=== PATIENT | female | born 1965 | race Caucasian/White ===

== ENCOUNTER 2016-05-02 10:06 | Inpatient (IN) | payer MEDICAID, SELFPAY ==
[2016-05-02] MEDS ORDERED: NS + KCl 20mEq/L 1,000 ML IV SCH (12:00)
[2016-05-02 12:57] LABS: ACETAMINOPHEN < 10 ug/mL (10-30)
[2016-05-02] MEDS ORDERED: Ondansetron 4 MG Tab.DIS PO PRN (13:17)
[2016-05-02] MEDS ORDERED: Pregabalin 50 MG Cap PO SCH (13:30)
[2016-05-02] MEDS ORDERED: Potassium Chloride 10 MEQ Tab.ER PO SCH (13:30)
[2016-05-02] MEDS: Pantoprazole 40 MG Vial IVPUSH SCH (13:52)
[2016-05-02] MEDS ORDERED: Potassium Chloride 20 MEQ Tab.ER PO SCH (15:30)
[2016-05-02] MEDS ORDERED: Potassium Chloride 20 MEQ Packet PO ONE (16:00)
[2016-05-02] MEDS: Enoxaparin 40 MG/0.4 ML Syringe SUBCUT SCH (17:42)
[2016-05-02] MEDS: NS + KCl 20mEq/L 1,000 ML IV SCH (19:16)
--- NOTE | 2016-05-02 19:17 | PCM.HP ---
H&P History of Present Illness - General Date of Service: 05/02/16 Source of Information: Patient, Family History Limitations: Reports: No limitations - History of Present Illness Initial Comments - Free Text/Narative: This is a 51-year-old female patient with a history of chronic alcoholism. She has not been eating for 5 days. She started vomiting and then quit eating. She 's been drinking some fluids and vomiting. She can only drinking water. She states she's had some abdominal pain. She denies constipation or diarrhea.. She denies dysuria, pyuria, hematuria, fevers, chills. According to her she only drinks 5 beers a day. She's not had any alcohol according to him for 5 days. She denies any withdrawals. Lower Back Pain Score (Numeric/FACES): 6 rib Pain Score (Numeric/FACES): 5 - Related Data Allergies/Adverse Reactions: Allergies Allergy/AdvReac Type Severity Reaction Status Date / Time No Known Allergies Allergy Verified 06/30/13 16:32 Home Medications: Home Meds ALPRAZolam [Xanax] 0.5 - 1 mg PO BID PRN 06/30/13 [History] Potassium Chloride [Klor-Con 10] 20 meq PO DAILY 06/30/13 [History] Ranitidine [Zantac] 150 mg PO BID 06/30/13 [History] Past Medical History HEENT History: Reports: Cataract Cardiovascular History: Reports: Other (see below) Other Cardiovascular History: Pt reports palpitations Gastrointestinal History: Reports: None Genitourinary History: Reports: None [employer] History: Reports: Musculoskeletal History: Reports: None Neurological History: Reports: None Psychiatric History: Reports: Addiction, Anxiety Endocrine/Metabolic History: Reports: None Hematologic History: Reports: None Immunologic History: Reports: None Oncologic (Cancer) History: Reports: None - Infectious Disease History Infectious Disease History: Reports: Chicken pox - Past Surgical History HEENT Surgical History: Reports: Cataract surgery, Tonsillectomy GI Surgical History: Reports: Appendectomy Musculoskeletal Surgical History: Reports: None Dermatological Surgical History: Reports: Skin graft Social & Family History - Family History Family Medical History: Noncontributory - Tobacco Use Smoking Status *Q: Never Smoker - Caffeine Use Caffeine Use: Reports: None Caffeine Use Comment: Does not use caffeine regularly - Alcohol Use Days Per Week of Alcohol Use: 3 Number of Drinks Per Day: 6 Total Drinks Per Week: 18 Date of Last Drink: 04/27/16 - Recreational Drug Use Recreational Drug Use: No H&P Review of Systems - Review of Systems: Review Of Systems: See Below General: Reports: no symptoms HEENT: Reports: no symptoms Pulmonary: Reports: no symptoms Cardiovascular: Reports: no symptoms Gastrointestinal: Reports: Abdominal pain, Anorexia, Decreased appetite, Nausea , Vomiting. Denies: Black stool, Bloody stool, Constipation, Diarrhea, Difficulty swallowing, Melena Genitourinary: Reports: no symptoms Musculoskeletal: Reports: no symptoms Skin: Reports: no symptoms Psychiatric: Reports: no symptoms Neurological: Reports: no symptoms Hematologic/Lymphatic: Reports: no symptoms Exam - Exam Exam: See Below - Vital Signs Vital Signs: Last Vital Signs Temp 97.7 F 05/02/16 15:44 Pulse 104 H 05/02/16 15:44 Resp 18 05/02/16 15:44 BP 111/78 05/02/16 15:44 Pulse Ox 98 05/02/16 15:44 Weight: 135 lb 3.2 oz - Exam General: alert, oriented, cooperative, other (But slow) HEENT: PERRLA, Conjunctiva clear, EACs clear, EOMI, Hearing intact, Mucosa moist & pink, Posterior pharynx clear, TMs clear Neck: supple, trachea midline. No: carotid bruit Lungs: Clear to auscultation, Normal respiratory effort. No: Crackles, Rales, Rhonchi, Rub Cardiovascular: regular rate, regular rhythm, normal S1, normal S2. No: systolic murmur, diastolic murmur Abdomen: normal bowel sounds, soft, organomegaly, guarding. No: rigidity, rebound, tenderness Back Exam: normal inspection, full range of motion Extremities: normal inspection. No: edema Neurological: normal tone, other (Slow speech) Neuro Extensive - Mental Status: alert, oriented x3. No: normal mood/affect - Patient Data Lab Results last 24 hrs: Laboratory Results - last 24 hr 05/02/16 05/02/16 05/02/16 Range/Units 14:31 16:33 16:33 PT 18.0 H (8.7-11.1) INR 1.76 H (0.89-1.13) APTT 25.4 (24.4-33.2) SECONDS Sodium 122 L (135-145) mmol/L Potassium 3.0 L (3.5-5.3) mmol/L Chloride 79 L* (100-110) mmol/L Carbon Dioxide 20 L (23-29) mmol/L BUN 37 H D (5-20) mg/dL Creatinine 0.8 (0.6-1.3) mg/dL Est Cr Clr Drug Dosing 81.45 mL/min Estimated GFR (MDRD) > 60 (>60) BUN/Creatinine Ratio 46.3 H (9-20) Glucose 126 H (80-116) mg/dL POC Glucose 140 H (80-116) mg/dL Calcium 8.7 (8.6-10.2) mg/dL Urine Opiates Screen (NEGATIVE) Ur Oxycodone Screen (NEGATIVE) Ur Propoxyphene Screen (NEGATIVE) Ur Barbituates Screen (NEGATIVE) Ur Tricyclics Screen (NEGATIVE) Ur Phencyclidine Scrn (NEGATIVE) Ur Amphetamine Screen (NEGATIVE) Urine MDMA Screen (NEGATIVE) U Benzodiazepines Scrn (NEGATIVE) U Cocaine Metab Screen (NEGATIVE) U Marijuana (THC) Screen (NEGATIVE) 05/02/16 Range/Units 18:30 PT (8.7-11.1) INR (0.89-1.13) APTT (24.4-33.2) SECONDS Sodium (135-145) mmol/L Potassium (3.5-5.3) mmol/L Chloride (100-110) mmol/L Carbon Dioxide (23-29) mmol/L BUN (5-20) mg/dL Creatinine (0.6-1.3) mg/dL Est Cr Clr Drug Dosing mL/min Estimated GFR (MDRD) (>60) BUN/Creatinine Ratio (9-20) Glucose (80-116) mg/dL POC Glucose (80-116) mg/dL Calcium (8.6-10.2) mg/dL Urine Opiates Screen Negative (NEGATIVE) Ur Oxycodone Screen Negative (NEGATIVE) Ur Propoxyphene Screen Negative (NEGATIVE) Ur Barbituates Screen Negative (NEGATIVE) Ur Tricyclics Screen Negative (NEGATIVE) Ur Phencyclidine Scrn Negative (NEGATIVE) Ur Amphetamine Screen Negative (NEGATIVE) Urine MDMA Screen Negative (NEGATIVE) U Benzodiazepines Scrn Positive H (NEGATIVE) U Cocaine Metab Screen Negative (NEGATIVE) U Marijuana (THC) Screen Negative (NEGATIVE) Result Diagrams: 02/23/17 12:37 05/02/16 16:33 *Q Meaningful Use (ADM) - VTE *Q VTE Criteria *Q: - Stroke *Q Stroke Criteria *Q: - AMI *Q AMI Criteria *Q: - Problem List (1) Dehydration SNOMED Code(s): 98984284 ICD Code: E86.0 - DEHYDRATION Status: Acute Current Visit: Yes (2) Vomiting SNOMED Code(s): 392741180 ICD Code: R11.10 - VOMITING, UNSPECIFIED Status: Acute Current Visit: Yes (3) Alcohol addiction SNOMED Code(s): 66521634, 141211883 ICD Code: F10.20 - ALCOHOL DEPENDENCE, UNCOMPLICATED Status: Acute Current Visit: Yes Problem List Initiated/Reviewed/Updated: Yes Orders Last 24hrs: Active Orders 24 hr Category Date Time Status Cloud Diet [DIET] Diet 05/03/16 Dinner Active NS + KCl 20mEq/L [Normal Saline with 20 mEq KCl] 1,000 Med 05/02/16 18:00 Active ml IV Q6H Medication Orders Enoxaparin Sodium (Lovenox) 40 mg SUBCUT Q24H [facility] Last Admin: 05/02/16 17:42 Dose: 40 mg Potassium Chloride/Sodium Chloride (Normal Saline With 20 Meq Kcl) 1,000 mls @ 150 mls/hr IV Q6H [facility] Ondansetron HCl (Zofran Odt) 4 mg PO Q4H PRN PRN Reason: nausea, able to take PO Last Admin: 05/02/16 13:52 Dose: 4 mg Pantoprazole Sodium (Protonix Iv) 40 mg IVPUSH Q24H [facility] Last Admin: 05/02/16 13:52 Dose: 40 mg Assessment/Plan Comment:: 1. Admit to the hospital. 2. IV fluids for recess of dictation number dehydration. Her hyponatremia is probably from dehydration and we will we will watch her sodium so it can rise slowly. We'll frequently check her sodium. 3. Amylase is elevated but not high. Recheck amylase in the morning. 4. She was initially put on regular diet and switched to clear liquids. 5. Zofran for nausea. 6. Watch really close for signs of withdrawal.
[2016-05-02] MEDS: traMADol 50 MG Tab PO PRN (20:11)
[2016-05-03] MEDS: traMADol 50 MG Tab PO PRN ×2 (01:07→13:09)
[2016-05-03] MEDS: NS + KCl 20mEq/L 1,000 ML IV SCH ×4 (02:19→17:38)
[2016-05-03] MEDS ORDERED: Potassium Chloride 10% 20 MEQ/15 ML Soln 15 ML UD Cup PO SCH (09:00)
[2016-05-03] MEDS ORDERED: ALPRAZolam 0.5 MG Tab PO PRN (09:25)
[2016-05-03] MEDS ORDERED: Non-Formulary Medication 1 Each (Ranitidine [Zantac] 150 MG) PO SCH (09:30)
--- NOTE | 2016-05-03 09:30 | PCM.PN ---
- General Info Date of Service: 05/03/16 Admission Dx/Problem (Free Text): Patient states she feels better today. She denies nausea, vomiting, abdominal pain, fevers or chills. She states again today that she was not doing this all started. - Patient Data Vitals - most recent: Last Vital Signs Temp 97.6 F 05/03/16 01:00 Pulse 105 H 05/03/16 01:00 Resp 18 05/03/16 01:00 BP 109/71 05/03/16 01:00 Pulse Ox 99 05/03/16 01:00 Weight - most recent: 138 lb 1.6 oz I&O - last 24 hours: Intake & Output 05/02/16 05/03/16 05/03/16 22:59 06:59 14:59 Intake Total 1166 2149 Output Total 575 200 Balance 1166 1574 -200 Lab Results last 24 hrs: Laboratory Results - last 24 hr 05/02/16 05/02/16 05/02/16 Range/Units 14:31 16:33 16:33 WBC (4.5-12.0) X10-3/uL RBC (3.23-5.20) x10(6)uL Hgb (11.5-15.5) g/dL Hct (30.0-51.3) % MCV (80-96) fL MCH (27.7-33.6) pg MCHC (32.2-35.4) g/dL RDW (11.5-15.5) % Plt Count (125-369) X10(3)uL MPV (7.4-10.4) fL Neut % (Auto) (46-82) % Lymph % (Auto) (13-37) % [facility] % (Auto) (4-12) % Eos % (Auto) (1.0-5.0) % Baso % (Auto) (0-2) % Neut # (1.6-8.3) # Lymph # (0.6-5.0) # [facility] # (0.0-1.3) # Eos # (0.0-0.8) # Baso # (0.0-0.2) # PT 18.0 H (8.7-11.1) INR 1.76 H (0.89-1.13) APTT 25.4 (24.4-33.2) SECONDS Sodium 122 L (135-145) mmol/L Potassium 3.0 L (3.5-5.3) mmol/L Chloride 79 L* (100-110) mmol/L Carbon Dioxide 20 L (23-29) mmol/L BUN 37 H D (5-20) mg/dL Creatinine 0.8 (0.6-1.3) mg/dL Est Cr Clr Drug Dosing 81.45 mL/min Estimated GFR (MDRD) > 60 (>60) BUN/Creatinine Ratio 46.3 H (9-20) Glucose 126 H (80-116) mg/dL POC Glucose 140 H (80-116) mg/dL Calcium 8.7 (8.6-10.2) mg/dL Total Bilirubin (0.1-1.3) mg/dL AST (5-27) IU/L ALT (14-26) IU/L Alkaline Phosphatase (56-112) IU/L Total Protein (6.0-8.0) g/dL Albumin (3.5-5.2) g/dL Globulin g/dL Albumin/Globulin Ratio Amylase (28-100) U/L Urine Opiates Screen (NEGATIVE) Ur Oxycodone Screen (NEGATIVE) Ur Propoxyphene Screen (NEGATIVE) Ur Barbituates Screen (NEGATIVE) Ur Tricyclics Screen (NEGATIVE) Ur Phencyclidine Scrn (NEGATIVE) Ur Amphetamine Screen (NEGATIVE) Urine MDMA Screen (NEGATIVE) U Benzodiazepines Scrn (NEGATIVE) U Cocaine Metab Screen (NEGATIVE) U Marijuana (THC) Screen (NEGATIVE) 05/02/16 05/02/16 05/02/16 Range/Units 17:40 18:30 21:30 WBC (4.5-12.0) X10-3/uL RBC (3.23-5.20) x10(6)uL Hgb (11.5-15.5) g/dL Hct (30.0-51.3) % MCV (80-96) fL MCH (27.7-33.6) pg MCHC (32.2-35.4) g/dL RDW (11.5-15.5) % Plt Count (125-369) X10(3)uL MPV (7.4-10.4) fL Neut % (Auto) (46-82) % Lymph % (Auto) (13-37) % [facility] % (Auto) (4-12) % Eos % (Auto) (1.0-5.0) % Baso % (Auto) (0-2) % Neut # (1.6-8.3) # Lymph # (0.6-5.0) # [facility] # (0.0-1.3) # Eos # (0.0-0.8) # Baso # (0.0-0.2) # PT (8.7-11.1) INR (0.89-1.13) APTT (24.4-33.2) SECONDS Sodium 124 L (135-145) mmol/L Potassium (3.5-5.3) mmol/L Chloride (100-110) mmol/L Carbon Dioxide (23-29) mmol/L BUN (5-20) mg/dL Creatinine (0.6-1.3) mg/dL Est Cr Clr Drug Dosing mL/min Estimated GFR (MDRD) (>60) BUN/Creatinine Ratio (9-20) Glucose (80-116) mg/dL POC Glucose 124 H (80-116) mg/dL Calcium (8.6-10.2) mg/dL Total Bilirubin (0.1-1.3) mg/dL AST (5-27) IU/L ALT (14-26) IU/L Alkaline Phosphatase (56-112) IU/L Total Protein (6.0-8.0) g/dL Albumin (3.5-5.2) g/dL Globulin g/dL Albumin/Globulin Ratio Amylase (28-100) U/L Urine Opiates Screen Negative (NEGATIVE) Ur Oxycodone Screen Negative (NEGATIVE) Ur Propoxyphene Screen Negative (NEGATIVE) Ur Barbituates Screen Negative (NEGATIVE) Ur Tricyclics Screen Negative (NEGATIVE) Ur Phencyclidine Scrn Negative (NEGATIVE) Ur Amphetamine Screen Negative (NEGATIVE) Urine MDMA Screen Negative (NEGATIVE) U Benzodiazepines Scrn Positive H (NEGATIVE) U Cocaine Metab Screen Negative (NEGATIVE) U Marijuana (THC) Screen Negative (NEGATIVE) 05/03/16 05/03/16 05/03/16 Range/Units 06:12 06:40 06:40 WBC 6.3 (4.5-12.0) X10-3/uL RBC 4.31 (3.23-5.20) x10(6)uL Hgb 14.4 D (11.5-15.5) g/dL Hct 42.6 D (30.0-51.3) % MCV 98.9 H (80-96) fL MCH 33.4 (27.7-33.6) pg MCHC 33.8 (32.2-35.4) g/dL RDW 13.0 (11.5-15.5) % Plt Count 135 (125-369) X10(3)uL MPV 9.9 (7.4-10.4) fL Neut % (Auto) 71.2 (46-82) % Lymph % (Auto) 18.4 (13-37) % [facility] % (Auto) 9.0 (4-12) % Eos % (Auto) 1 (1.0-5.0) % Baso % (Auto) 1 (0-2) % Neut # 4.6 (1.6-8.3) # Lymph # 1.1 (0.6-5.0) # [facility] # 0.6 (0.0-1.3) # Eos # 0.0 (0.0-0.8) # Baso # 0.0 (0.0-0.2) # PT (8.7-11.1) INR (0.89-1.13) APTT (24.4-33.2) SECONDS Sodium 131 L (135-145) mmol/L Potassium 2.9 L (3.5-5.3) mmol/L Chloride 98 L D (100-110) mmol/L Carbon Dioxide 22 L (23-29) mmol/L BUN 34 H (5-20) mg/dL Creatinine 0.6 (0.6-1.3) mg/dL Est Cr Clr Drug Dosing 110.93 mL/min Estimated GFR (MDRD) > 60 (>60) BUN/Creatinine Ratio 56.7 H (9-20) Glucose 97 (80-116) mg/dL POC Glucose 88 (80-116) mg/dL Calcium 8.3 L (8.6-10.2) mg/dL Total Bilirubin 2.6 H (0.1-1.3) mg/dL AST 48 H D (5-27) IU/L ALT 39 H D (14-26) IU/L Alkaline Phosphatase 118 H (56-112) IU/L Total Protein 6.3 (6.0-8.0) g/dL Albumin 3.2 L (3.5-5.2) g/dL Globulin 3.1 g/dL Albumin/Globulin Ratio 1.0 Amylase 98 (28-100) U/L Urine Opiates Screen (NEGATIVE) Ur Oxycodone Screen (NEGATIVE) Ur Propoxyphene Screen (NEGATIVE) Ur Barbituates Screen (NEGATIVE) Ur Tricyclics Screen (NEGATIVE) Ur Phencyclidine Scrn (NEGATIVE) Ur Amphetamine Screen (NEGATIVE) Urine MDMA Screen (NEGATIVE) U Benzodiazepines Scrn (NEGATIVE) U Cocaine Metab Screen (NEGATIVE) U Marijuana (THC) Screen (NEGATIVE) Med Orders - Current: Current Medications Enoxaparin Sodium (Lovenox) 40 mg SUBCUT Q24H [facility] Last Admin: 05/02/16 17:42 Dose: 40 mg Potassium Chloride/Sodium Chloride (Normal Saline With 20 Meq Kcl) 1,000 mls @ 125 mls/hr IV Q6H [facility] Last Admin: 05/03/16 09:01 Dose: 150 mls/hr Ondansetron HCl (Zofran Odt) 4 mg PO Q4H PRN PRN Reason: nausea, able to take PO Last Admin: 05/02/16 13:52 Dose: 4 mg Pantoprazole Sodium (Protonix Iv) 40 mg IVPUSH Q24H [facility] Last Admin: 05/02/16 13:52 Dose: 40 mg Potassium Chloride (Klor-Con 10) 10 meq PO TID [facility] Tramadol HCl (Ultram) 50 mg PO Q4H PRN PRN Reason: Pain Last Admin: 05/03/16 01:07 Dose: 50 mg Discontinued Medications Potassium Chloride/Sodium Chloride (Normal Saline With 20 Meq Kcl) 1,000 mls @ 150 mls/hr IV ASDIRECTED ERICH Stop: 05/02/16 17:59 Last Admin: 05/02/16 12:03 Dose: 150 mls/hr Potassium Chloride (Potassium Chloride Solution) 40 meq PO DAILY [facility] Potassium Chloride (Klor-Con M20) 60 meq PO DAILY [facility] Last Admin: 05/02/16 15:47 Dose: Not Given Potassium Chloride (Klor-Con) 60 meq PO ASDIRECTED ONE Stop: 02/23/17 16:01 Last Admin: 05/02/16 16:50 Dose: 60 meq - Exam General: alert, oriented, cooperative Neck: supple Lungs: Normal respiratory effort Abdomen: bowel sounds present, soft, no tenderness, organomegaly. No: rebound, guarding, tenderness, distension Extremities: no edema - Problem List & Annotations (1) Dehydration SNOMED Code(s): 46392681 Code(s): E86.0 - DEHYDRATION Status: Acute Current Visit: Yes (2) Vomiting SNOMED Code(s): 905042928 Code(s): R11.10 - VOMITING, UNSPECIFIED Status: Acute Current Visit: Yes (3) Alcohol addiction SNOMED Code(s): 80084087, 160322000 Code(s): F10.20 - ALCOHOL DEPENDENCE, UNCOMPLICATED Status: Acute Current Visit: No (4) Alcoholic liver damage, unspecified SNOMED Code(s): 90374956 Code(s): K70.9 - ALCOHOLIC LIVER DISEASE, UNSPECIFIED Status: Acute Current Visit: No (5) Hyponatremia SNOMED Code(s): 03210865 Code(s): E87.1 - HYPO-OSMOLALITY AND HYPONATREMIA Status: Acute Current Visit: Yes (6) Hypokalemia SNOMED Code(s): 02380213 Code(s): E87.6 - HYPOKALEMIA Status: Acute Current Visit: Yes - Problem List Review Problem List Initiated/Reviewed/Updated: Yes - My Orders Last 24 Hours: My Active Orders 05/02/16 19:50 traMADol [Ultram] 50 mg PO Q4H PRN 05/03/16 09:25 Up With Assistance [RC] ASDIRECTED Up in Wheelchair [RC] ASDIRECTED ALPRAZolam [Xanax] 0.5 mg PO BID PRN 05/03/16 09:30 Ranitidine [Zantac] 150 mg PO BID 05/03/16 14:00 Potassium Chloride [Klor-Con 10] 10 meq PO TID 05/03/16 Breakfast Regular Diet [DIET] 05/04/16 05:11 COMPREHENSIVE METABOLIC PN,CMP [CHEM] AM 05/05/16 05:11 COMPREHENSIVE METABOLIC PN,CMP [CHEM] AM - Plan Plan:: 1. advanced to regular diet today. 2. Start by mouth potassium 10 mg 3 times a day with the IV fluids. 3. Chem 12 in the Am 4. Patient's normally in a wheelchair most the time. She does not want PT/OT. Up with assist and in her wheelchair. 5. Slowed IV rate to 125 mL an hour. 6. Discussed liver functions and alcohol issues with the patient. She is not interested in pursuing any testing of the liver or treatment for alcohol at this time.
[2016-05-03] MEDS: Famotidine 20 MG Tab PO SCH ×2 (10:24→20:31)
[2016-05-03] MEDS: Potassium Chloride 10 MEQ Tab.ER PO SCH ×3 (10:25→20:31)
[2016-05-03] MEDS: Pantoprazole 40 MG Vial IVPUSH SCH (14:23)
[2016-05-03] MEDS: Enoxaparin 40 MG/0.4 ML Syringe SUBCUT SCH (17:39)
[2016-05-03] MEDS: Naproxen 500 MG Tab PO PRN (19:32)
[2016-05-04] MEDS: NS + KCl 20mEq/L 1,000 ML IV SCH ×2 (01:32→08:43)
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
[2016-05-04 07:47] VITALS: BP 86/52
[2016-05-04] MEDS: Famotidine 20 MG Tab PO SCH (08:42)
[2016-05-04] MEDS: Potassium Chloride 10 MEQ Tab.ER PO SCH (08:42)
--- NOTE | 2016-05-04 09:05 | PCM.PN ---
- General Info Date of Service: 05/04/16 Admission Dx/Problem (Free Text): patient is more alert. No nausea vomiting and tolerating meals. She saw some back pain that we did a workup here today. - Patient Data Vitals - most recent: Last Vital Signs Temp 98.0 F 05/04/16 07:46 Pulse 94 05/04/16 07:46 Resp 15 05/04/16 07:46 BP 86/52 L 05/04/16 07:46 Pulse Ox 94 L 05/04/16 07:46 Weight - most recent: 144 lb 6.4 oz I&O - last 24 hours: Intake & Output 05/03/16 05/04/16 05/04/16 22:59 06:59 14:59 Intake Total 978 1402 Output Total 200 575 Balance 778 827 Lab Results last 24 hrs: Laboratory Results - last 24 hr 05/03/16 05/04/16 Range/Units 11:30 06:45 Sodium 134 L (135-145) mmol/L Potassium 3.2 L (3.5-5.3) mmol/L Chloride 102 (100-110) mmol/L Carbon Dioxide 23 (23-29) mmol/L BUN 9 D (5-20) mg/dL Creatinine 0.4 L (0.6-1.3) mg/dL Est Cr Clr Drug Dosing 173.98 mL/min Estimated GFR (MDRD) > 60 (>60) BUN/Creatinine Ratio 22.5 H (9-20) Glucose 100 (80-116) mg/dL Calcium 7.7 L (8.6-10.2) mg/dL Total Bilirubin 1.4 H (0.1-1.3) mg/dL AST 39 H D (5-27) IU/L ALT 27 H D (14-26) IU/L Alkaline Phosphatase 91 (56-112) IU/L Total Protein 4.8 L (6.0-8.0) g/dL Albumin 2.4 L (3.5-5.2) g/dL Globulin 2.4 g/dL Albumin/Globulin Ratio 1.0 Urine Color Yellow (YELLOW) Urine Appearance Cloudy (CLEAR) Urine pH 5.0 (5.0-6.5) Ur Specific [place] 1.010 (1.010-1.025) Urine Protein Negative (NEGATIVE) mg/dL Urine Glucose (UA) Normal (NEGATIVE) mg/dL Urine Ketones 15 H (NEGATIVE) mg/dL Urine Occult Blood Negative (NEGATIVE) Urine Nitrite Positive H (NEGATIVE) Urine Bilirubin Negative (NEGATIVE) Urine Urobilinogen 4 H (NEGATIVE) mg/dL Ur Leukocyte Esterase Negative (NEGATIVE) Urine RBC 0-5 (0) Urine WBC 0-5 (0) Ur Squamous Epith Cells Few H (NS,R,O) Urine Bacteria Many H (NS) Urine Mucus Few H (NS) Med Orders - Current: Current Medications Alprazolam (Xanax) 0.5 mg PO BID PRN PRN Reason: Anxiety Enoxaparin Sodium (Lovenox) 40 mg SUBCUT Q24H [facility] Last Admin: 05/03/16 17:39 Dose: 40 mg Famotidine (Pepcid) 20 mg PO BID [facility] Last Admin: 05/04/16 08:42 Dose: 20 mg Potassium Chloride/Sodium Chloride (Normal Saline With 20 Meq Kcl) 1,000 mls @ 125 mls/hr IV Q8H [facility] Last Admin: 05/04/16 08:43 Dose: 125 mls/hr Naproxen (Naprosyn) 500 mg PO Q12H PRN PRN Reason: Pain Last Admin: 05/03/16 19:32 Dose: 500 mg Ondansetron HCl (Zofran Odt) 4 mg PO Q4H PRN PRN Reason: nausea, able to take PO Last Admin: 05/02/16 13:52 Dose: 4 mg Pantoprazole Sodium (Protonix Iv) 40 mg IVPUSH Q24H [facility] Last Admin: 05/03/16 14:23 Dose: 40 mg Potassium Chloride (Klor-Con 10) 10 meq PO TID [facility] Last Admin: 05/04/16 08:42 Dose: 10 meq Tramadol HCl (Ultram) 50 mg PO Q4H PRN PRN Reason: Pain Last Admin: 05/03/16 13:09 Dose: 50 mg Discontinued Medications Potassium Chloride/Sodium Chloride (Normal Saline With 20 Meq Kcl) 1,000 mls @ 150 mls/hr IV ASDIRECTED [facility] Stop: 05/02/16 17:59 Last Admin: 05/02/16 12:03 Dose: 150 mls/hr Potassium Chloride/Sodium Chloride (Normal Saline With 20 Meq Kcl) 1,000 mls @ 125 mls/hr IV Q6H [facility] Stop: 05/03/16 16:59 Last Admin: 05/03/16 13:59 Dose: Not Given Potassium Chloride (Potassium Chloride Solution) 40 meq PO DAILY [facility] Potassium Chloride (Klor-Con M20) 60 meq PO DAILY [facility] Last Admin: 05/02/16 15:47 Dose: Not Given Potassium Chloride (Klor-Con) 60 meq PO ASDIRECTED ONE Stop: 05/02/16 16:01 Last Admin: 05/02/16 16:50 Dose: 60 meq - Exam General: alert, oriented, cooperative Lungs: Clear to auscultation, Normal respiratory effort Cardiovascular: regular rate, regular rhythm, no murmurs Abdomen: bowel sounds present, soft, no tenderness, no distension - Problem List & Annotations (1) Dehydration SNOMED Code(s): 99077446 Code(s): E86.0 - DEHYDRATION Status: Acute Current Visit: Yes (2) Vomiting SNOMED Code(s): 407956744 Code(s): R11.10 - VOMITING, UNSPECIFIED Status: Acute Current Visit: Yes (3) Alcohol addiction SNOMED Code(s): 79531144, 148191717 Code(s): F10.20 - ALCOHOL DEPENDENCE, UNCOMPLICATED Status: Acute Current Visit: No (4) Alcoholic liver damage, unspecified SNOMED Code(s): 24161316 Code(s): K70.9 - ALCOHOLIC LIVER DISEASE, UNSPECIFIED Status: Acute Current Visit: No (5) Hyponatremia SNOMED Code(s): 58297291 Code(s): E87.1 - HYPO-OSMOLALITY AND HYPONATREMIA Status: Acute Current Visit: Yes (6) Hypokalemia SNOMED Code(s): 89525623 Code(s): E87.6 - HYPOKALEMIA Status: Acute Current Visit: Yes - Problem List Review Problem List Initiated/Reviewed/Updated: Yes - My Orders Last 24 Hours: My Active Orders 05/03/16 09:25 Up With Assistance [RC] ASDIRECTED Up in Wheelchair [RC] ASDIRECTED ALPRAZolam [Xanax] 0.5 mg PO BID PRN 05/03/16 09:30 Famotidine [Pepcid] 20 mg PO BID Potassium Chloride [Klor-Con 10] 10 meq PO TID 05/03/16 21:00 Naproxen [Naprosyn] 500 mg PO Q12H PRN 05/05/16 05:11 COMPREHENSIVE METABOLIC PN,CMP [CHEM] AM - Plan Plan:: 1. discharge to home. 2. Recheck with Dr. Pratt 7-10 days. 3. Potassium by mouth.
--- NOTE | 2016-05-04 09:15 | PCM.DCSUM1 ---
Discharge Summary - Hospital Course Free Text/Narrative:: Hospital course-patient's sodium was 122, potassium was 3.0, bilirubin 2.6, AST 48, ALT is 39. She is severely dehydrated. She was given normal saline and her sodium was checked for was later which was 124. By the next morning was 131. Patient felt much better. Potassium was 2.9. We advanced her diet and she tolerated her diet. She claims a little bit of back pain and we did not working at this time because of her other issues. By day 2 her sodium was 13 potassium 3.6. Her bilirubin went down to 1.4, AST-39, ALT-27. Patient was able to injury. She is profoundly weak and sitting in a wheelchair not doing much at home. For a while she didn't tell me why but she says because her back hurts. Her ammonia was 200 she did not have any asterixis. Did discuss alcohol abuse and chronic liver failure. Patient did not want any treatment, PT /OT. Discharge to home. She'll followup with Dr. Pratt to work up her back pain. Brief History: This is a 51-year-old female patient with a history of chronic alcoholism. She has not been eating for 5 days. She started vomiting and then quit eating. She's been drinking some fluids and vomiting. She can only drinking water. She states she's had some abdominal pain. She denies constipation or diarrhea.. She denies dysuria, pyuria, hematuria, fevers, chills. According to her she only drinks 5 beers a day. She's not had any alcohol according to him for 5 days. She denies any withdrawals. - Discharge Data Discharge Date: 05/04/16 Discharge Disposition: Home, Self-Care 01 Condition: Fair - Discharge Diagnosis/Problem(s) (1) Dehydration SNOMED Code(s): 49235838 ICD Code: E86.0 - DEHYDRATION Status: Acute Current Visit: Yes (2) Vomiting SNOMED Code(s): 215286360 ICD Code: R11.10 - VOMITING, UNSPECIFIED Status: Acute Current Visit: Yes (3) Alcohol addiction SNOMED Code(s): 02730037, 962686716 ICD Code: F10.20 - ALCOHOL DEPENDENCE, UNCOMPLICATED Status: Acute Current Visit: No (4) Alcoholic liver damage, unspecified SNOMED Code(s): 45181163 ICD Code: K70.9 - ALCOHOLIC LIVER DISEASE, UNSPECIFIED Status: Acute Current Visit: No (5) Hyponatremia SNOMED Code(s): 02483379 ICD Code: E87.1 - HYPO-OSMOLALITY AND HYPONATREMIA Status: Acute Current Visit: Yes (6) Hypokalemia SNOMED Code(s): 61026127 ICD Code: E87.6 - HYPOKALEMIA Status: Acute Current Visit: Yes - Patient Instructions Diet: Regular Diet as Tolerated Diet, Other: avoid alcohol Activity: As Tolerated Driving: Do Not Drive Showering/Bathing: May Shower Notify Provider of: Increased Pain, Nausea and/or Vomiting Other/Special Instructions: 1. Recheck with Dr. Pratt in 7-10 days. - Discharge Plan Home Medications: Home Meds ALPRAZolam [Xanax] 0.5 - 1 mg PO BID PRN 06/30/13 [History] Potassium Chloride [Klor-Con 10] 20 meq PO DAILY 06/30/13 [History] Ranitidine [Zantac] 150 mg PO BID 06/30/13 [History] Patient Handouts: Deep Vein Thrombosis - Discharge Summary/Plan Comment DC Time >30 min.: No - Patient Data Vitals - Most Recent: Last Vital Signs Temp 98.0 F 05/04/16 07:46 Pulse 94 05/04/16 07:46 Resp 15 05/04/16 07:46 BP 86/52 L 05/04/16 07:46 Pulse Ox 94 L 05/04/16 07:46 Weight - Most Recent: 144 lb 6.4 oz I&O - Last 24 hours: Intake & Output 05/03/16 05/04/16 05/04/16 22:59 06:59 14:59 Intake Total 978 1402 Output Total 200 575 Balance 778 827 Lab Results - Last 24 hrs: Laboratory Results - last 24 hr 05/03/16 05/04/16 Range/Units 11:30 06:45 Sodium 134 L (135-145) mmol/L Potassium 3.2 L (3.5-5.3) mmol/L Chloride 102 (100-110) mmol/L Carbon Dioxide 23 (23-29) mmol/L BUN 9 D (5-20) mg/dL Creatinine 0.4 L (0.6-1.3) mg/dL Est Cr Clr Drug Dosing 173.98 mL/min Estimated GFR (MDRD) > 60 (>60) BUN/Creatinine Ratio 22.5 H (9-20) Glucose 100 (80-116) mg/dL Calcium 7.7 L (8.6-10.2) mg/dL Total Bilirubin 1.4 H (0.1-1.3) mg/dL AST 39 H D (5-27) IU/L ALT 27 H D (14-26) IU/L Alkaline Phosphatase 91 (56-112) IU/L Total Protein 4.8 L (6.0-8.0) g/dL Albumin 2.4 L (3.5-5.2) g/dL Globulin 2.4 g/dL Albumin/Globulin Ratio 1.0 Urine Color Yellow (YELLOW) Urine Appearance Cloudy (CLEAR) Urine pH 5.0 (5.0-6.5) Ur Specific [place] 1.010 (1.010-1.025) Urine Protein Negative (NEGATIVE) mg/dL Urine Glucose (UA) Normal (NEGATIVE) mg/dL Urine Ketones 15 H (NEGATIVE) mg/dL Urine Occult Blood Negative (NEGATIVE) Urine Nitrite Positive H (NEGATIVE) Urine Bilirubin Negative (NEGATIVE) Urine Urobilinogen 4 H (NEGATIVE) mg/dL Ur Leukocyte Esterase Negative (NEGATIVE) Urine RBC 0-5 (0) Urine WBC 0-5 (0) Ur Squamous Epith Cells Few H (NS,R,O) Urine Bacteria Many H (NS) Urine Mucus Few H (NS) Med Orders - Current: Current Medications Alprazolam (Xanax) 0.5 mg PO BID PRN PRN Reason: Anxiety Enoxaparin Sodium (Lovenox) 40 mg SUBCUT Q24H [facility] Last Admin: 05/03/16 17:39 Dose: 40 mg Famotidine (Pepcid) 20 mg PO BID [facility] Last Admin: 05/04/16 08:42 Dose: 20 mg Potassium Chloride/Sodium Chloride (Normal Saline With 20 Meq Kcl) 1,000 mls @ 125 mls/hr IV Q8H [facility] Last Admin: 05/04/16 08:43 Dose: 125 mls/hr Naproxen (Naprosyn) 500 mg PO Q12H PRN PRN Reason: Pain Last Admin: 05/03/16 19:32 Dose: 500 mg Ondansetron HCl (Zofran Odt) 4 mg PO Q4H PRN PRN Reason: nausea, able to take PO Last Admin: 05/02/16 13:52 Dose: 4 mg Pantoprazole Sodium (Protonix Iv) 40 mg IVPUSH Q24H [facility] Last Admin: 05/03/16 14:23 Dose: 40 mg Potassium Chloride (Klor-Con 10) 10 meq PO TID [facility] Last Admin: 05/04/16 08:42 Dose: 10 meq Tramadol HCl (Ultram) 50 mg PO Q4H PRN PRN Reason: Pain Last Admin: 05/03/16 13:09 Dose: 50 mg Discontinued Medications Potassium Chloride/Sodium Chloride (Normal Saline With 20 Meq Kcl) 1,000 mls @ 150 mls/hr IV ASDIRECTED [facility] Stop: 05/02/16 17:59 Last Admin: 05/02/16 12:03 Dose: 150 mls/hr Potassium Chloride/Sodium Chloride (Normal Saline With 20 Meq Kcl) 1,000 mls @ 125 mls/hr IV Q6H [facility] Stop: 05/03/16 16:59 Last Admin: 05/03/16 13:59 Dose: Not Given Potassium Chloride (Potassium Chloride Solution) 40 meq PO DAILY [facility] Potassium Chloride (Klor-Con M20) 60 meq PO DAILY [facility] Last Admin: 05/02/16 15:47 Dose: Not Given Potassium Chloride (Klor-Con) 60 meq PO ASDIRECTED ONE Stop: 05/02/16 16:01 Last Admin: 05/02/16 16:50 Dose: 60 meq *Q Meaningful Use (DIS) - VTE *Q VTE Criteria *Q: - Stroke *Q Stroke Criteria *Q: - AMI *Q AMI Criteria *Q:
[2016-05-04] MEDS: Naproxen 500 MG Tab PO PRN (11:55)
--- NOTE | 2016-05-06 10:30 | CR ---
INDICATION: Question alcoholic myopathy - cardiomegaly. CHEST: Two AP upright views of the chest were obtained and revealed the heart to be normal in size and shape. An active infiltrate or effusion was not identified. IMPRESSION: No definite active disease. MTDD
--- NOTE | 2016-05-20 03:22 | ER ---
DATE SEEN: 05/02/2016 Ammonia 202 (16-53). ALT 39 (14-26). Albumin 3.2 (3.5-5.2). AST 48 (5-27). BUN was 34. BUN and creatinine ratio 56.7 (9-20). DIAGNOSES: Elevated ammonia level secondary to liver disease( without hepatorenal syndrome), dehydration, hepatitis, hypokalemia, hyponatremia, and hypochloremia. /[id number] AMADEO/MANOJ PASTRANA
== END 2016-05-04 13:10 | disposition home or self-care (01) | DRG 641 ==
LOC: FB.ED 10:06 → FB.MS 13:34
PROVIDERS: ADMIT Family Medicine; ATTEND Family Medicine
DX: E86.0 Dehydration (principal); F10.20 Alcohol dependence, uncomplicated; E87.1 Hypo-osmolality and hyponatremia; R11.10 Vomiting, unspecified; K70.9 Alcoholic liver disease, unspecified; E87.6 Hypokalemia; F41.9 Anxiety disorder, unspecified
CPT/HCPCS: 36415; 71010; 80053; 82140; 82150; 83735; 85025; 96360; 96361; 99285; G0479 ×2; G0480; J3480; 80048; 80305; 81001; 82962; 84295; 85610; 85730; 96365; 96366; A9270-GY; C9113; J1650

== ENCOUNTER 2016-06-19 12:00 | Inpatient (IN) | payer MEDICAID ==
[2016-06-19] MEDS ORDERED: Folic Acid 50 MG/10 ML MDV SUBCUT ONE (12:13)
[2016-06-19] MEDS ORDERED: Thiamine 100 MG in Sodium Chloride 0.9% 10 ML IV ONE (12:13)
[2016-06-19] MEDS ORDERED: Ondansetron 4 MG/2 ML SDV IV PRN (12:13)
[2016-06-19] MEDS ORDERED: LORazepam 2 MG/ML MDV IVPUSH PRN (12:13)
[2016-06-19] MEDS ORDERED: Lactated Ringers 1,000 ML IV SCH (12:15)
[2016-06-19] MEDS ORDERED: LORazepam 1 MG Tab PO PRN (12:40)
[2016-06-19] MEDS ORDERED: ALPRAZolam 1 MG Tab PO PRN (12:42)
[2016-06-19] MEDS ORDERED: Ondansetron 4 MG/2 ML SDV ONE (13:31)
[2016-06-19] MEDS ORDERED: Dextrose 5%-0.9% NaCl 1,000 ML IV SCH (14:00)
[2016-06-19] MEDS: Potassium Chloride 20 MEQ in Premix Bag 1 BAG IV SCH ×2 (14:15→16:47)
[2016-06-19] MEDS ORDERED: Morphine 2 MG/ML Syringe IVPUSH ONE (14:25)
[2016-06-19] MEDS: Pantoprazole 40 MG Vial IVPUSH SCH (14:29)
[2016-06-19] MEDS ORDERED: Morphine 2 MG/ML Syringe ONE (14:36)
[2016-06-19] MEDS ORDERED: LORazepam 2 MG/ML MDV IVPUSH ONE ×2 (14:36→17:20)
[2016-06-19] MEDS ORDERED: Pneumococcal Polyvalent-23 Vaccine 0.5 ML SDV IM ONE (16:14)
[2016-06-19] MEDS ORDERED: Morphine 2 MG/ML Syringe IVPUSH PRN (16:29)
[2016-06-19] MEDS ORDERED: NS + KCl 20mEq/L 1,000 ML IV SCH (16:30)
--- NOTE | 2016-06-19 16:47 | PCM.HP ---
H&P History of Present Illness - General Date of Service: 06/19/16 Admit Problem/Dx: Admission Diagnosis/Problem Admission Diagnosis/Problem Dehydration Source of Information: Family, Old records, Provider History Limitations: Reports: Altered mental status - History of Present Illness Initial Comments - Free Text/Narative: Mrs. Rivera is a 51 y female brought to the hospital being admitted direct from clinic when she present to see her pcp Dr. Dru MD but was unable to get out of the car due to severe weakness, intractable nausea and vomiting which had been going on for 3-4 days, until her brought her in. Dr. Dru MD went out to the parking lot and noted that she was certainly very dehydrated, altered mental status and too weak to get out of the car and would need to be admitted for further assesment, stabilzation and studies regarding films, labs and endoscopy as she has presented to the clinic in the last couple mouths with symptoms of similar circumstances with abdominal pain, weakness, n/v , and lethargy being worked up as out pt including consultation with Dr. Gianni MD General Surgery who is planning on performing a diagnostic EGD/screening colonoscopy to aid in evaluation and management. Up to this point, she has been treated with antiemetics, abdominal US positive for fatty liver, gallstones and sludge without evidence of chronic or acute cholecystitis, biliary obstruction, hepatitis, free fluid or stranding and no mass effect. limited views of the panaceas. She has a long complicated hx of severe malnutrition secondary to chronic etoh abuse/addition. she drinks daily, but for the last few days has been unable to hold anything down, including her medications, food, fluids and etoh, leading to the very real possibility of acute etoh withdrawl, onset of DT, and electrolyte abnormalities not only as possible primary event at this time, but more likely secondary to illness resulting from unknown etiology of abd pain/n/ v that is currently be worked up outpatient. 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 he usually does everything for her with regards to getting her up and to the bathroom, preparing meals etc, as she is to the point that she has been non ambulatory for the last few years as a consequence of her severe etoh in the past and present. rarely leaves her home. on a normal day, she sits and sleeps in her recliner, has food next to her, drinking anywhere from 6-8 cans of beer/ liquor a day while her is a work. He denies that he brings this to her, but otherwise unsure of where she is getting it from if she is immobile unless she is getting it delivered somehow, which is possible. otherwise, no tobacco, thc, recreational drugs, recent ill contacts, travel, immunizations, falls, choking, alvarado, insomnia, fevers, neck pain or stiftness, hematemesis, bilious emesis, melena, hematochezia, diarrhea, dysuria, malodorous urine, cp/sob/ preseived palpitations (even though her HR is in the 140s), abd bloating, flank pain, vaginal bleeding or discharge or pelvic pain. Post menopausal for 3 years. sexually active with her . she has chronic low back pain for which there is hx of DDD in the lumbar spine, but not recent increase in back pain or change in bowel/bladder continence. no focal numbness, tingling, weakness. right hand dominant. no facial drooping or change in chronic slowed slurred speech. states speech is more garbled and ability to focus is increased. no seizure activity or hx. Chronic hx of hypokalemia, hepatic encephalopathy, fatty liver, anorrhexia and severe malnutrition, chronic daily etoh use/dependence (refusing treatment), homebound, anxiety/depression, along with possible enabling from family and/or friends contributing to unrelenting cycle. No hx of cardiac defect/disease/ arrhymias/holiday heart/failure/cvd or renal disease. no hx of DM. no hx of htn , known hepatitis, thyroid disease or chronic elevated ammonia. 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 otherwise only benign surgeries in her hx and none to the abdomen, neck, esophagous, stomach, bowel, liver, gallbladder, spleen, pancrease or ducts. no dx of IBD or IBS. No dx of primary neurologic or autoimmune disease. Abdominal Pain Score (Numeric/FACES): 9 Lower back Pain Score (Numeric/FACES): 0 - Related Data Allergies/Adverse Reactions: Allergies Allergy/AdvReac Type Severity Reaction Status Date / Time No Known Allergies Allergy Verified 06/19/16 12:22 Home Medications: Home Meds ALPRAZolam [Xanax] 1 mg PO BID PRN 06/30/13 [History] Potassium Chloride [Klor-Con 10] 20 meq PO DAILY 06/30/13 [History] Ranitidine [Zantac] 150 mg PO BID 06/30/13 [History] Multivitamin [Multi-Day Vitamins] 1 tab DAILY 06/19/16 [History] Past Medical History HEENT History: Reports: Cataract Cardiovascular History: Reports: Other (see below) Other Cardiovascular History: Pt reports palpitations Gastrointestinal History: Reports: Cholelithiasis, Cirrhosis, Gastritis, GERD Genitourinary History: Reports: UTI, recurrent CORRECTIONS LIEUTENANT History: Reports: Musculoskeletal History: Reports: Other (see below) Other Musculoskeletal History: peripheral neuropathy Neurological History: Reports: Neuropathy, peripheral Psychiatric History: Reports: Addiction, Anxiety, Psych Hospitalization(s) Other Psychiatric History: Hx ETOH abuse Endocrine/Metabolic History: Reports: None Hematologic History: Reports: None Immunologic History: Reports: None Oncologic (Cancer) History: Reports: None Other Dermatologic History: severe goel bite to hands bilat & feet. Has bilat foot drop. - Infectious Disease History Infectious Disease History: Reports: Chicken pox - Past Surgical History HEENT Surgical History: Reports: Cataract surgery, Tonsillectomy Other HEENT Surgeries/Procedures: bilat cataract surgery GI Surgical History: Reports: Appendectomy Female Surgical History: Reports: None Neurological Surgical History: Reports: None Musculoskeletal Surgical History: Reports: None Dermatological Surgical History: Reports: Skin graft Social & Family History - Family History Family Medical History: Noncontributory - Tobacco Use Smoking Status *Q: Never Smoker - Caffeine Use Caffeine Use: Reports: Energy drinks, Soda Caffeine Use Comment: Does not use caffeine regularly - Alcohol Use Days Per Week of Alcohol Use: 7 Number of Drinks Per Day: 5 Total Drinks Per Week: 35 Date of Last Drink: 06/15/16 - Recreational Drug Use Recreational Drug Use: No H&P Review of Systems - Review of Systems: Review Of Systems: ROS reveals no pertinent complaints other than HPI. Exam - Exam Exam: See Below - Vital Signs Vital Signs: Vital Signs Temp 98.1 F 06/19/16 12:14 Pulse 130s sinus tach Resp 18 06/19/16 12:14 BP 113/77 06/19/16 12:14 Pulse Ox 95 06/19/16 12:14 Intake & Output 06/19/16 06/19/16 06:59 14:59 Output Total 330 Balance -330 Output: Output, Catheter Amount 250 De León, Continuous 250 Output, Gastric Amount 80 Nasogastric Orogastic (NG 80 /OG) Other: Total, Output Amount 250 Weight: 56.382 kg - Exam General: cooperative, lethargic HEENT: PERRLA, Conjunctiva clear, EOMI, Nares patent, Normal nasal septum, TMs clear, Other (erythematous op without exudate or edema/gag intact/uvula midline/ dentition intact/black kinza tongue) Neck: supple, trachea midline, +2 carotid pulse wo bruit, full range of motion. No: lymphadenopathy, carotid bruit, JVD, thyromegaly Lungs: Clear to auscultation, Normal respiratory effort. No: Rales Cardiovascular: regular rhythm, normal S1, normal S2, tachycardia (130-140s) Abdomen: soft, tenderness (general right upper mid epi. negative matty), hypoactive bowel sounds (minimal at most in right lower quad after 2 min, otherwise silent throughout). No: organomegaly, peritoneal signs, guarding, hernia (Female) Exam: Normal external exam. No: Vaginal bleeding Rectal (Female) Exam: Normal Exam, Normal rectal tone, Heme - stool. No: Black stool, Bloody stool, Fecal impaction Back Exam: normal inspection. No: CVA tenderness (R), CVA tenderness (L) Extremities: normal pulses, cool. No: calf tenderness, edema Skin: cool. No: rash, petechia, ecchymosis Neurological: cranial nerves intact, strength equal bilateral, abnormal gait Neuro Extensive - Mental Status: slow response to commands Neuro Extensive - Motor, Sensory, Reflexes: other (generalized weakness and lower extremity muscle wasting which is symetric. able to stand with assist of two. ) Psychiatric: anxious - Patient Data Lab Results last 24 hrs: Laboratory Results - last 24 hr 06/19/16 06/19/16 06/19/16 Range/Units 12:49 12:50 12:50 WBC 12.1 H (4.5-12.0) X10-3/uL RBC 5.31 H (3.23-5.20) x10(6)uL Hgb 17.8 H D (11.5-15.5) g/dL Hct 53.3 H D (30.0-51.3) % MCV 100.4 H (80-96) fL MCH 33.6 (27.7-33.6) pg MCHC 33.5 (32.2-35.4) g/dL RDW 13.1 (11.5-15.5) % Plt Count 146 (125-369) X10(3)uL MPV 9.3 (7.4-10.4) fL Add Manual Diff Yes Neutrophils % (Manual) 84 H (46-82) % Lymphocytes % (Manual) 12 L (13-37) % Monocytes % (Manual) 4 (4-12) % Macrocytosis Few PT 16.4 H (8.7-11.1) INR 1.60 H (0.89-1.13) APTT 25.1 (24.4-33.2) SECONDS Sodium (135-145) mmol/L Potassium (3.5-5.3) mmol/L Chloride (100-110) mmol/L Carbon Dioxide (23-29) mmol/L BUN (5-20) mg/dL Creatinine (0.6-1.3) mg/dL Est Cr Clr Drug Dosing mL/min Estimated GFR (MDRD) (>60) BUN/Creatinine Ratio (9-20) Glucose (80-116) mg/dL POC Glucose 191 H D (80-116) mg/dL Calcium (8.6-10.2) mg/dL Phosphorus (3.0-4.6) mg/dL Magnesium (1.8-2.5) mg/dL Total Bilirubin (0.1-1.3) mg/dL AST (5-27) IU/L ALT (14-26) IU/L Alkaline Phosphatase (56-112) IU/L Total Protein (6.0-8.0) g/dL Albumin (3.5-5.2) g/dL Globulin g/dL Albumin/Globulin Ratio Amylase (28-100) U/L HCG, Quant (2.0 - ) mIU/mL Urine Color (YELLOW) Urine Appearance (CLEAR) Urine pH (5.0-6.5) Ur Specific [place] (1.010-1.025) Urine Protein (NEGATIVE) mg/dL Urine Glucose (UA) (NEGATIVE) mg/dL Urine Ketones (NEGATIVE) mg/dL Urine Occult Blood (NEGATIVE) Urine Nitrite (NEGATIVE) Urine Bilirubin (NEGATIVE) Urine Urobilinogen (NEGATIVE) mg/dL Ur Leukocyte Esterase (NEGATIVE) Urine RBC (0) Urine WBC (0) Ur Squamous Epith Cells (NS,R,O) Urine Bacteria (NS) Hyaline Casts (NS) 06/19/16 06/19/16 06/19/16 Range/Units 12:50 12:50 13:35 WBC (4.5-12.0) X10-3/uL RBC (3.23-5.20) x10(6)uL Hgb (11.5-15.5) g/dL Hct (30.0-51.3) % MCV (80-96) fL MCH (27.7-33.6) pg MCHC (32.2-35.4) g/dL RDW (11.5-15.5) % Plt Count (125-369) X10(3)uL MPV (7.4-10.4) fL Add Manual Diff Neutrophils % (Manual) (46-82) % Lymphocytes % (Manual) (13-37) % Monocytes % (Manual) (4-12) % Macrocytosis PT (8.7-11.1) INR (0.89-1.13) APTT (24.4-33.2) SECONDS Sodium 134 L (135-145) mmol/L Potassium 2.3 L* (3.5-5.3) mmol/L Chloride 89 L* D (100-110) mmol/L Carbon Dioxide 14 L (23-29) mmol/L BUN 24 H D (5-20) mg/dL Creatinine 1.4 H (0.6-1.3) mg/dL Est Cr Clr Drug Dosing 42.79 mL/min Estimated GFR (MDRD) 40 L (>60) BUN/Creatinine Ratio 17.1 (9-20) Glucose 204 H D (80-116) mg/dL POC Glucose (80-116) mg/dL Calcium 10.1 D (8.6-10.2) mg/dL Phosphorus 2.1 L (3.0-4.6) mg/dL Magnesium 1.7 L (1.8-2.5) mg/dL Total Bilirubin 3.7 H (0.1-1.3) mg/dL AST 70 H D (5-27) IU/L ALT 62 H D (14-26) IU/L Alkaline Phosphatase 136 H (56-112) IU/L Total Protein 9.2 H (6.0-8.0) g/dL Albumin 5.1 (3.5-5.2) g/dL Globulin 4.1 g/dL Albumin/Globulin Ratio 1.2 Amylase 102 H (28-100) U/L HCG, Quant 2 (2.0 - ) mIU/mL Urine Color (YELLOW) Urine Appearance (CLEAR) Urine pH (5.0-6.5) Ur Specific [place] (1.010-1.025) Urine Protein (NEGATIVE) mg/dL Urine Glucose (UA) (NEGATIVE) mg/dL Urine Ketones (NEGATIVE) mg/dL Urine Occult Blood (NEGATIVE) Urine Nitrite (NEGATIVE) Urine Bilirubin (NEGATIVE) Urine Urobilinogen (NEGATIVE) mg/dL Ur Leukocyte Esterase (NEGATIVE) Urine RBC (0) Urine WBC (0) Ur Squamous Epith Cells (NS,R,O) Urine Bacteria (NS) Hyaline Casts (NS) 06/19/16 Range/Units 14:40 WBC (4.5-12.0) X10-3/uL RBC (3.23-5.20) x10(6)uL Hgb (11.5-15.5) g/dL Hct (30.0-51.3) % MCV (80-96) fL MCH (27.7-33.6) pg MCHC (32.2-35.4) g/dL RDW (11.5-15.5) % Plt Count (125-369) X10(3)uL MPV (7.4-10.4) fL Add Manual Diff Neutrophils % (Manual) (46-82) % Lymphocytes % (Manual) (13-37) % Monocytes % (Manual) (4-12) % Macrocytosis PT (8.7-11.1) INR (0.89-1.13) APTT (24.4-33.2) SECONDS Sodium (135-145) mmol/L Potassium (3.5-5.3) mmol/L Chloride (100-110) mmol/L Carbon Dioxide (23-29) mmol/L BUN (5-20) mg/dL Creatinine (0.6-1.3) mg/dL Est Cr Clr Drug Dosing mL/min Estimated GFR (MDRD) (>60) BUN/Creatinine Ratio (9-20) Glucose (80-116) mg/dL POC Glucose (80-116) mg/dL Calcium (8.6-10.2) mg/dL Phosphorus (3.0-4.6) mg/dL Magnesium (1.8-2.5) mg/dL Total Bilirubin (0.1-1.3) mg/dL AST (5-27) IU/L ALT (14-26) IU/L Alkaline Phosphatase (56-112) IU/L Total Protein (6.0-8.0) g/dL Albumin (3.5-5.2) g/dL Globulin g/dL Albumin/Globulin Ratio Amylase (28-100) U/L HCG, Quant (2.0 - ) mIU/mL Urine Color Yellow (YELLOW) Urine Appearance Slightly cloudy (CLEAR) Urine pH 6.0 (5.0-6.5) Ur Specific [place] 1.015 (1.010-1.025) Urine Protein 500 H (NEGATIVE) mg/dL Urine Glucose (UA) Normal (NEGATIVE) mg/dL Urine Ketones 150 H (NEGATIVE) mg/dL Urine Occult Blood Moderate H (NEGATIVE) Urine Nitrite Negative (NEGATIVE) Urine Bilirubin Small H (NEGATIVE) Urine Urobilinogen 4 H (NEGATIVE) mg/dL Ur Leukocyte Esterase Negative (NEGATIVE) Urine RBC 0-5 (0) Urine WBC 0-5 (0) Ur Squamous Epith Cells Few H (NS,R,O) Urine Bacteria Few H (NS) Hyaline Casts Many H (NS) Result Diagrams: 06/21/16 06:35 06/21/16 06:35 Miguel Results last 24 hrs: Microbiology 06/19/16 13:40 Stool Occult Blood (MIGUEL) - Final Stool / Feces NEGATIVE OCCULT BLOOD Imaging Impressions last 24 hrs: cxr clear, abd flat and decubitus without fluid levels, non specific bowel gas and stool, no mass. abd us: normal gb size, tiny stones-mobile, normal common bile duct, no evidence of choleycystitis, fatty liver noted, no mass, normal pancrease, otherwise no acute findings. EKG INTERPRETATION EKG Date: 06/19/16 Time: 13:45 Rhythm: NSR Rate (beats/min): 140 P-wave: present QRS: normal ST-T: other (diffuse depression in all leads) QT: normal Comparison: NA - no prior EKG EKG Interpretation Comments: sinus tach with with non specific defuse st depression throughout, no qwaves or blocks. in light of dehydration and hx of chronic etoh/anxiety. will hydrate and treat, will follow when rate slows. *Q Meaningful Use (ADM) - VTE *Q VTE Criteria *Q: VTE Pharmacological Contraindications *Q: Bld Coag Disorder Hep dz - Stroke *Q Stroke Criteria *Q: - AMI *Q AMI Criteria *Q: - Problem List (1) Vomiting SNOMED Code(s): 868239730 ICD Code: R11.10 - VOMITING, UNSPECIFIED Status: Acute Current Visit: Yes Qualifiers: Nausea presence: with nausea (2) Hypokalemia SNOMED Code(s): 08367598 ICD Code: E87.6 - HYPOKALEMIA Status: Acute Current Visit: Yes (3) Ileus, unspecified SNOMED Code(s): 12933671 ICD Code: K56.7 - ILEUS, UNSPECIFIED Status: Acute Current Visit: Yes (4) Dehydration SNOMED Code(s): 97129377 ICD Code: E86.0 - DEHYDRATION Status: Acute Priority: High Current Visit: Yes (5) Hyponatremia SNOMED Code(s): 14242370 ICD Code: E87.1 - HYPO-OSMOLALITY AND HYPONATREMIA Status: Acute Current Visit: Yes (6) Fatty liver, alcoholic SNOMED Code(s): 67480546 ICD Code: K70.0 - ALCOHOLIC FATTY LIVER Status: Acute Current Visit: Yes (7) Gallstones without obstruction of gallbladder SNOMED Code(s): 66256297 ICD Code: K80.20 - CALCULUS OF GALLBLADDER W/O CHOLECYSTITIS W/O OBSTRUCTION Status: Acute Current Visit: Yes Qualifiers: Cholelithiasis location: gallbladder Cholecystitis presence: without cholecystitis Qualified Code(s): K80.20 - Calculus of gallbladder without cholecystitis without obstruction (8) Complaint of debility and malaise SNOMED Code(s): 155030317 ICD Code: R53.81 - OTHER MALAISE Status: Acute Priority: High Current Visit: Yes (9) Malnutrition compromising bodily function SNOMED Code(s): 8468382 ICD Code: E46 - UNSPECIFIED PROTEIN-CALORIE MALNUTRITION Status: Chronic Priority: High Current Visit: Yes (10) Metabolic acidosis SNOMED Code(s): 42449823 ICD Code: E87.2 - ACIDOSIS Status: Acute Current Visit: Yes (11) Recent urinary tract infection SNOMED Code(s): 0365023366319 ICD Code: Z87.440 - PERSONAL HISTORY OF URINARY (TRACT) INFECTIONS Status: Acute Current Visit: Yes (12) Acute on chronic alteration in mental status SNOMED Code(s): 752181181 ICD Code: R41.82 - ALTERED MENTAL STATUS, UNSPECIFIED Status: Acute Current Visit: Yes (13) Mobility impaired SNOMED Code(s): 81414343 ICD Code: Z74.09 - OTHER REDUCED MOBILITY Status: Chronic Current Visit: Yes (14) Alcohol addiction SNOMED Code(s): 45690461, 851626665 ICD Code: F10.20 - ALCOHOL DEPENDENCE, UNCOMPLICATED Status: Chronic Current Visit: Yes Qualifiers: Substance use status: other alcohol-induced disorder Qualified Code(s): F10.288 - Alcohol dependence with other alcohol-induced disorder (15) Alcoholic liver damage, unspecified SNOMED Code(s): 90547571 ICD Code: K70.9 - ALCOHOLIC LIVER DISEASE, UNSPECIFIED Status: Chronic Priority: High Current Visit: Yes Problem List Initiated/Reviewed/Updated: Yes Orders Last 24hrs: Active Orders 24 hr Category Date Time Status Patient Status [ADT] Routine ADT 06/19/16 12:14 Active Transfer Patient (Change bed) [ADT] Routine ADT 06/19/16 13:48 Ordered Blood Glucose Check, Bedside [RC] ONETIME Care 06/19/16 12:13 Active Cardiac Monitoring [RC] CONTINUOUS Care 06/19/16 12:18 Active Gastrointestinal Tube Mgmt [RC] ASDIRECTED Care 06/19/16 13:56 Active Head of Bed Elevation [RC] ASDIRECTED Care 06/19/16 12:13 Active Height and Weight [RC] DAILY Care 06/19/16 12:13 Active Insert De León Catheter [Insert Urinary Catheter] [OM.PC] Care 06/19/16 14:30 Ordered Q24H Intake and Output [RC] Q4H Care 06/19/16 12:18 Active Neuro Check [RC] Q4H Care 06/19/16 12:27 Active Notify Provider Vital Signs [RC] ASDIRECTED Care 06/19/16 12:19 Active Oxygen Therapy [RC] PRN Care 06/19/16 12:14 Active Up With Assistance [RC] ASDIRECTED Care 06/19/16 12:13 Active Urinary Catheter Assessment [RC] QSHIFT Care 06/19/16 14:16 Active VTE/DVT Education [RC] DAILY Care 06/19/16 12:13 Active Vital Signs [RC] Q4H Care 06/19/16 12:14 Active Consult to Home Theater Experience Expert [CONS] Routine Cons 06/19/16 12:13 Active Consult to Oxyhydrogen Welder [CONS] Routine Cons 06/19/16 12:13 Active NPO Now [Nothing per Oral Now Diet] [DIET] Diet 06/19/16 Dinner Active Abdomen 2V AP Upright Decub [CR] Routine Exams 06/19/16 14:01 Taken Abdomen Comp [US] Routine Exams 06/19/16 14:01 Taken Chest 2V [CR] Routine Exams 06/19/16 12:13 Taken AMMONIA [REF] Routine Lab 06/19/16 12:50 Received BASIC METABOLIC PANEL,BMP [CHEM] Timed Lab 06/19/16 19:00 Ordered BILIRUBIN DIRECT [CHEM] Routine Lab 06/19/16 16:29 Ordered C-REACTIVE PROTEIN [CHEM] Routine Lab 06/19/16 16:29 Ordered COMPREHENSIVE METABOLIC PN,CMP [CHEM] DAILY Lab 06/20/16 12:15 Ordered COMPREHENSIVE METABOLIC PN,CMP [CHEM] DAILY Lab 06/21/16 12:15 Ordered COMPREHENSIVE METABOLIC PN,CMP [CHEM] DAILY Lab 06/22/16 12:15 Ordered CULTURE BLOOD [BC] Urgent Lab 06/19/16 12:50 Received CULTURE BLOOD [BC] Urgent Lab 06/19/16 12:50 Received CULTURE URINE [RM] Routine Lab 06/19/16 16:29 Uncollected HEPATITIS PANEL,ACUTE [REF] Routine Lab 06/19/16 16:29 Ordered LIPASE [REF] Routine Lab 06/19/16 13:35 Received Dextrose 5%-0.9% NaCl [Dextrose 5%-Normal Saline] 1,000 Med 06/19/16 14:00 Active ml IV ASDIRECTED LORazepam [Ativan] Med 06/19/16 12:13 Active See Protocol IVPUSH Q1H PRN LORazepam [Ativan] Med 06/19/16 12:40 Active See Protocol PO Q1H PRN Lactated Ringers [Ringers, Lactated] 1,000 ml Med 06/19/16 12:15 Active IV .BOLUS MVI, Adult with Vitamin K [Infuvite Adult] 10 ml Med 06/19/16 18:00 Active Thiamine [Vitamin B-1] 100 mg Folic Acid 1 mg Magnesium Sulfate [Magnesium Sulfate 50%] 3 gm Sodium Chloride 0.9% [Normal Saline] 1,000 ml IV ONETIME Morphine Med 06/19/16 16:29 Ordered 2 mg IVPUSH Q2H PRN NS + KCl 20mEq/L [Normal Saline with 20 mEq KCl] 1,000 Med 06/19/16 16:30 Active ml IV Q8H Ondansetron [Zofran] Med 06/19/16 12:13 Active 4 mg IV Q4H PRN Pantoprazole [ProTONIX IV] Med 06/19/16 12:15 Active 40 mg IVPUSH DAILY Potassium Chloride [KCL 20 MEQ in Water 100 ML] 20 meq Med 06/19/16 14:00 Active Premix Bag 1 bag IV Q2H Blood Culture x2 Reflex Set [OM.PC] Urgent Oth 06/19/16 12:13 Ordered ED Alcohol and Substance Abuse Reflex [OM.PC] Click to Oth 06/19/16 12:13 Ordered Edit NG [Nasogastric Orogastric Tube Insertion] [OM.PC] Oth 06/19/16 13:54 Ordered Routine Sequential Compression Device [OM.PC] Per Unit Routine Oth 06/19/16 12:21 Ordered VTE Pharmacological Contraindications [AST] Per Unit Oth 06/19/16 12:13 Ordered Routine Resuscitation Status Routine Resus Stat 06/19/16 12:13 Ordered EKG 12 Lead [EK] Routine Ther 06/19/16 13:49 Ordered Medication Orders Lactated Ringer's (Ringers, Lactated) 1,000 mls @ 999 mls/hr IV .BOLUS [facility] Last Admin: 06/19/16 12:40 Dose: 999 mls/hr Dextrose/Sodium Chloride (Dextrose 5%-Normal Saline) 1,000 mls @ 999 mls/hr IV ASDIRECTED [facility] Last Admin: 06/19/16 14:00 Dose: 999 mls/hr Potassium Chloride 20 meq/ (Premix) 100 mls @ 50 mls/hr IV Q2H ERICH Stop: 06/19/16 17:59 Last Admin: 06/19/16 14:15 Dose: 50 mls/hr Multivitamins/Minerals 10 ml/Thiamine HCl 100 mg/ Folic Acid 1 mg/ Magnesium Sulfate 3 gm/ Sodium Chloride 1,017.2 mls @ 125 mls/hr IV ONETIME ONE Stop: 06/20/16 02:08 Potassium Chloride/Sodium Chloride (Normal Saline With 20 Meq Kcl) 1,000 mls @ 125 mls/hr IV Q8H ERICH Lorazepam (Ativan) 0 mg IVPUSH Q1H PRN; Protocol PRN Reason: [facility] protocol Lorazepam (Ativan) 0 mg PO Q1H PRN; Protocol PRN Reason: per [facility] protocol Morphine Sulfate (Morphine) 2 mg IVPUSH Q2H PRN PRN Reason: Pain Stop: 06/20/16 00:30 Ondansetron HCl (Zofran) 4 mg IV Q4H PRN PRN Reason: Nausea/Vomiting Pantoprazole Sodium (Protonix Iv) 40 mg IVPUSH DAILY [facility] Last Admin: 06/19/16 14:29 Dose: 40 mg Assessment/Plan Comment:: see above assessments. Will admit to ICU for severe dehydration with reflexive tachy, hemoconcentration , metabolic disturbance, intractable n/v with hx of chronic epigastric pain/ruq pain acutely negative for gallbladder or pancreatic disease, possiblity of recent gallstone passage resulting in acute elevation in bilirubin and ilieus. anorhexia chronic with malnutrition, muscle wasting and mobility impairment. chronic daily etoh intake, however unable to hold anything down last few days, so component of withdrawl likely complicating picture. will replenish fluids and electrolytes, vitamins and minerals, start CIWA protocol, stict i/o, npo, place ngt with aspiration percautions, control nausea/ vomiting, morphine juditiously, consult surgery when stable as she was scheduled for egd and colonoscopy in the next couple days for same, so will have inhouse if able. scds, protonix, labs as appropriate, repeat urine culture to ensure cleared after cipo for ecoli, pt/ot when stable, no abx. follow closely and adjust course as necessary. patient is agreeable and pleasant. she is oriented to condition place and answers questions appropriately. went back to work but will be here in the evening. Total Time: 90 min ICU time.
[2016-06-19] MEDS ORDERED: MVI, Adult with Vitamin K 10 ML, Thiamine 100 MG, Folic Acid 1 MG, Magnesium Sulfate 3 ... IV ONE ×5 (18:00)
[2016-06-19] MEDS: NS + KCl 20mEq/L 1,000 ML IV SCH (21:30)
[2016-06-20] MEDS ORDERED: Morphine 2 MG/ML Syringe IVPUSH ONE (00:47)
[2016-06-20] MEDS: NS + KCl 20mEq/L 1,000 ML IV SCH ×2 (01:30→05:38)
--- NOTE | 2016-06-20 08:46 | US ---
INDICATION: Nausea and vomiting, right upper quadrant tenderness. ABDOMEN ULTRASOUND COMPLETE: Multiple ultrasonic images were obtained 2016 and compared with the previous study of 04/22/2011, revealing less than ideal visualization, as the patient was unable to cooperate with the examination. The kidneys were grossly normal, measuring 10.9 x 4.6 cm on the right, and 10.2 x 4.8 cm on the left. The gallbladder measured 7.1 x 3.5 x 3.2 cm and revealed multiple calculi, which appear slightly more numerous than on the previous study. They change in position and shadow. The gallbladder wall was not thickened. The gallbladder was not enlarged. No pericholecystic fluid was seen. A positive ultrasonic Harris sign was not designated. The abdominal aorta was normal in caliber. The common bile duct was normal in caliber at 4.3 mm. The pancreas was not well visualized and appeared grossly normal. The liver was not well seen, but was somewhat echogenic, suggesting fatty infiltration. There appears to be a calcification in the spleen which was also not ideally visualized. It measured approximately 89 x 39 mm longitudinally. No definite mass lesions or free fluid collections were identified. IMPRESSION: 1. Somewhat limited study due to patient apparent inability to cooperate with the examination. 2. Cholelithiasis. No definite cholecystitis. 3. Fatty infiltration of the liver. Report was called to Dr. Smiley at 1617 hours, 06/19/2016. [facility]
--- NOTE | 2016-06-20 08:49 | CR ---
INDICATION: Altered mental status. CHEST: Frontal and lateral views of the chest revealed the heart, mediastinum, and bony thorax to be unremarkable. Nasogastric tube is noted in place with its tip in the fundus of the stomach. It could be advanced approximately 10 cm for better positioning. Overlying EKG leads are noted. An active infiltrate or effusion was not identified. IMPRESSION: 1. No acute process. 2. Suggest advance of the nasogastric tube approximately 10 cm for better positioning. Report was called to Dr. Smiley at 1617 hours, 06/19/2016. [facility]
--- NOTE | 2016-06-20 08:56 | CR ---
INDICATION: Nausea, vomiting, abdominal distention. ABDOMEN: Three images of the abdomen were obtained in supine and upright projections and revealed a nonspecific pattern of gas and feces without evidence of free air or obstruction. Gas and stool is noted in the rectum. No definite organomegaly, mass lesions, or free fluid collections were identified. No definite pathologic calcifications were seen. Nasogastric tube tip is in the fundus of the stomach and should be advanced approximately 10 cm for better positioning. Dextroconvex scoliosis is suggested at the thoracolumbar spine. This could be positional, but should be correlated clinically. IMPRESSION: 1. Nonspecific abdomen - nonacute abdomen. 2. Nasogastric tube should be advanced approximately 10 cm for better positioning. 3. Question scoliosis versus positional. Report was called to Dr. Smiley at 1617 hours, 06/19/2016. [facility]
[2016-06-20] MEDS ORDERED: Potassium Chloride 10 MEQ Tab.ER PO SCH (09:00)
[2016-06-20] MEDS: Potassium Chloride 20 MEQ in Premix Bag 1 BAG IV SCH ×4 (09:05→19:01)
[2016-06-20] MEDS: Pantoprazole 40 MG Vial IVPUSH SCH (09:09)
--- NOTE | 2016-06-20 10:40 | PCM.CONS ---
H&P History of Present Illness - General Admit Problem/Dx: Admission Diagnosis/Problem Admission Diagnosis/Problem Dehydration - History of Present Illness Initial Comments - Free Text/Narative: 51 yo wf who was originally seen be me in the clinic last week. She has a hx of upper abd pain, distributed in a band like pattern across the entire abdomen. She has had issue with decreased po intake as well as nausea, vomiting as well as gallbladder sludge. I felt at that time that her sludge was asx and recommended an upper and lower endoscopy. In addition she has a hx of alcohol abuse, does not drink enough water by her own admission. She denies any current etoh use. She was admitted yesterday with issue of nausea, vomiting and poor po intake. She was noted to be dehydrated with tachycardia. NGT was placed and she was placed in the icu. Her lab work has gotten better. she still has a heart rate in the 120's, down from the 140s on admission. amylase is slightly elevated, wbc are down. lft's are chronically elevated. Abdominal Pain Score (Numeric/FACES): 9 Lower back Pain Score (Numeric/FACES): 6 - Related Data Allergies/Adverse Reactions: Allergies Allergy/AdvReac Type Severity Reaction Status Date / Time No Known Allergies Allergy Verified 06/19/16 12:22 Home Medications: Home Meds ALPRAZolam [Xanax] 1 mg PO BID PRN 06/30/13 [History] Potassium Chloride [Klor-Con 10] 20 meq PO DAILY 06/30/13 [History] Ranitidine [Zantac] 150 mg PO BID 06/30/13 [History] Multivitamin [Multi-Day Vitamins] 1 tab DAILY 06/19/16 [History] Past Medical History HEENT History: Reports: Cataract Cardiovascular History: Reports: Other (see below) Other Cardiovascular History: Pt reports palpitations Gastrointestinal History: Reports: Cholelithiasis, Cirrhosis, Gastritis, GERD Genitourinary History: Reports: UTI, recurrent [employer] SPECIALIST History: Reports: Musculoskeletal History: Reports: Other (see below) Other Musculoskeletal History: peripheral neuropathy Neurological History: Reports: Neuropathy, peripheral Psychiatric History: Reports: Addiction, Anxiety, Psych Hospitalization(s) Other Psychiatric History: Hx ETOH abuse Endocrine/Metabolic History: Reports: None Hematologic History: Reports: None Immunologic History: Reports: None Oncologic (Cancer) History: Reports: None Other Dermatologic History: severe goel bite to hands bilat & feet. Has bilat foot drop. - Infectious Disease History Infectious Disease History: Reports: Chicken pox - Past Surgical History HEENT Surgical History: Reports: Cataract surgery, Tonsillectomy Other HEENT Surgeries/Procedures: bilat cataract surgery GI Surgical History: Reports: Appendectomy Female Surgical History: Reports: None Neurological Surgical History: Reports: None Musculoskeletal Surgical History: Reports: None Dermatological Surgical History: Reports: Skin graft Social & Family History - Family History Family Medical History: Noncontributory - Tobacco Use Smoking Status *Q: Never Smoker - Caffeine Use Caffeine Use: Reports: Energy drinks, Soda Caffeine Use Comment: Does not use caffeine regularly - Alcohol Use Days Per Week of Alcohol Use: 7 Number of Drinks Per Day: 5 Total Drinks Per Week: 35 Date of Last Drink: 06/15/16 - Recreational Drug Use Recreational Drug Use: No H&P Review of Systems - Review of Systems: Review Of Systems: ROS reveals no pertinent complaints other than HPI. Exam - Exam Exam: See Below - Vital Signs Vital Signs: Last Vital Signs Temp 36.8 C 06/20/16 08:00 Pulse 120 H 06/20/16 04:30 Resp 18 06/20/16 08:00 BP 120/72 06/20/16 08:00 Pulse Ox 99 06/20/16 08:00 Weight: 63.73 kg - Exam General: alert Lungs: Clear to auscultation, Normal respiratory effort Cardiovascular: regular rate, tachycardia Abdomen: normal bowel sounds, tenderness (epigastrium ) - Patient Data Lab Results last 24 hrs: Laboratory Results - last 24 hr 06/19/16 06/19/16 06/19/16 Range/Units 12:49 12:50 12:50 WBC 12.1 H (4.5-12.0) X10-3/uL RBC 5.31 H (3.23-5.20) x10(6)uL Hgb 17.8 H D (11.5-15.5) g/dL Hct 53.3 H D (30.0-51.3) % MCV 100.4 H (80-96) fL MCH 33.6 (27.7-33.6) pg MCHC 33.5 (32.2-35.4) g/dL RDW 13.1 (11.5-15.5) % Plt Count 146 (125-369) X10(3)uL MPV 9.3 (7.4-10.4) fL Neut % (Auto) (46-82) % Lymph % (Auto) (13-37) % Sherman % (Auto) (4-12) % Eos % (Auto) (1.0-5.0) % Baso % (Auto) (0-2) % Neut # (Auto) (1.6-8.3) # Lymph # (Auto) (0.6-5.0) # Sherman # (Auto) (0.0-1.3) # Eos # (Auto) (0.0-0.8) # Baso # (Auto) (0.0-0.2) # Add Manual Diff Yes Neutrophils % (Manual) 84 H (46-82) % Lymphocytes % (Manual) 12 L (13-37) % Monocytes % (Manual) 4 (4-12) % Macrocytosis Few PT 16.4 H (8.7-11.1) INR 1.60 H (0.89-1.13) APTT 25.1 (24.4-33.2) SECONDS Sodium (135-145) mmol/L Potassium (3.5-5.3) mmol/L Chloride (100-110) mmol/L Carbon Dioxide (23-29) mmol/L BUN (5-20) mg/dL Creatinine (0.6-1.3) mg/dL Est Cr Clr Drug Dosing mL/min Estimated GFR (MDRD) (>60) BUN/Creatinine Ratio (9-20) Glucose (80-116) mg/dL POC Glucose 191 H D (80-116) mg/dL Calcium (8.6-10.2) mg/dL Phosphorus (3.0-4.6) mg/dL Magnesium (1.8-2.5) mg/dL Total Bilirubin (0.1-1.3) mg/dL Direct Bilirubin (0.1-0.2) mg/dL AST (5-27) IU/L ALT (14-26) IU/L Alkaline Phosphatase (56-112) IU/L C-Reactive Protein (0.0-1.0) mg/dL Total Protein (6.0-8.0) g/dL Albumin (3.5-5.2) g/dL Globulin g/dL Albumin/Globulin Ratio Amylase (28-100) U/L Vitamin B12 (211-911) pg/mL HCG, Quant (2.0 - ) mIU/mL Urine Color (YELLOW) Urine Appearance (CLEAR) Urine pH (5.0-6.5) Ur Specific [place] (1.010-1.025) Urine Protein (NEGATIVE) mg/dL Urine Glucose (UA) (NEGATIVE) mg/dL Urine Ketones (NEGATIVE) mg/dL Urine Occult Blood (NEGATIVE) Urine Nitrite (NEGATIVE) Urine Bilirubin (NEGATIVE) Urine Urobilinogen (NEGATIVE) mg/dL Ur Leukocyte Esterase (NEGATIVE) Urine RBC (0) Urine WBC (0) Ur Squamous Epith Cells (NS,R,O) Urine Bacteria (NS) Hyaline Casts (NS) 06/19/16 06/19/16 06/19/16 Range/Units 12:50 12:50 13:35 WBC (4.5-12.0) X10-3/uL RBC (3.23-5.20) x10(6)uL Hgb (11.5-15.5) g/dL Hct (30.0-51.3) % MCV (80-96) fL MCH (27.7-33.6) pg MCHC (32.2-35.4) g/dL RDW (11.5-15.5) % Plt Count (125-369) X10(3)uL MPV (7.4-10.4) fL Neut % (Auto) (46-82) % Lymph % (Auto) (13-37) % Sherman % (Auto) (4-12) % Eos % (Auto) (1.0-5.0) % Baso % (Auto) (0-2) % Neut # (Auto) (1.6-8.3) # Lymph # (Auto) (0.6-5.0) # Sherman # (Auto) (0.0-1.3) # Eos # (Auto) (0.0-0.8) # Baso # (Auto) (0.0-0.2) # Add Manual Diff Neutrophils % (Manual) (46-82) % Lymphocytes % (Manual) (13-37) % Monocytes % (Manual) (4-12) % Macrocytosis PT (8.7-11.1) INR (0.89-1.13) APTT (24.4-33.2) SECONDS Sodium 134 L (135-145) mmol/L Potassium 2.3 L* (3.5-5.3) mmol/L Chloride 89 L* D (100-110) mmol/L Carbon Dioxide 14 L (23-29) mmol/L BUN 24 H D (5-20) mg/dL Creatinine 1.4 H (0.6-1.3) mg/dL Est Cr Clr Drug Dosing 42.79 mL/min Estimated GFR (MDRD) 40 L (>60) BUN/Creatinine Ratio 17.1 (9-20) Glucose 204 H D (80-116) mg/dL POC Glucose (80-116) mg/dL Calcium 10.1 D (8.6-10.2) mg/dL Phosphorus 2.1 L (3.0-4.6) mg/dL Magnesium 1.7 L (1.8-2.5) mg/dL Total Bilirubin 3.7 H (0.1-1.3) mg/dL Direct Bilirubin (0.1-0.2) mg/dL AST 70 H D (5-27) IU/L ALT 62 H D (14-26) IU/L Alkaline Phosphatase 136 H (56-112) IU/L C-Reactive Protein (0.0-1.0) mg/dL Total Protein 9.2 H (6.0-8.0) g/dL Albumin 5.1 (3.5-5.2) g/dL Globulin 4.1 g/dL Albumin/Globulin Ratio 1.2 Amylase 102 H (28-100) U/L Vitamin B12 (211-911) pg/mL HCG, Quant 2 (2.0 - ) mIU/mL Urine Color (YELLOW) Urine Appearance (CLEAR) Urine pH (5.0-6.5) Ur Specific [place] (1.010-1.025) Urine Protein (NEGATIVE) mg/dL Urine Glucose (UA) (NEGATIVE) mg/dL Urine Ketones (NEGATIVE) mg/dL Urine Occult Blood (NEGATIVE) Urine Nitrite (NEGATIVE) Urine Bilirubin (NEGATIVE) Urine Urobilinogen (NEGATIVE) mg/dL Ur Leukocyte Esterase (NEGATIVE) Urine RBC (0) Urine WBC (0) Ur Squamous Epith Cells (NS,R,O) Urine Bacteria (NS) Hyaline Casts (NS) 06/19/16 06/19/16 06/19/16 Range/Units 14:40 20:10 20:10 WBC (4.5-12.0) X10-3/uL RBC (3.23-5.20) x10(6)uL Hgb (11.5-15.5) g/dL Hct (30.0-51.3) % MCV (80-96) fL MCH (27.7-33.6) pg MCHC (32.2-35.4) g/dL RDW (11.5-15.5) % Plt Count (125-369) X10(3)uL MPV (7.4-10.4) fL Neut % (Auto) (46-82) % Lymph % (Auto) (13-37) % Sherman % (Auto) (4-12) % Eos % (Auto) (1.0-5.0) % Baso % (Auto) (0-2) % Neut # (Auto) (1.6-8.3) # Lymph # (Auto) (0.6-5.0) # Sherman # (Auto) (0.0-1.3) # Eos # (Auto) (0.0-0.8) # Baso # (Auto) (0.0-0.2) # Add Manual Diff Neutrophils % (Manual) (46-82) % Lymphocytes % (Manual) (13-37) % Monocytes % (Manual) (4-12) % Macrocytosis PT (8.7-11.1) INR (0.89-1.13) APTT (24.4-33.2) SECONDS Sodium 139 (135-145) mmol/L Potassium 3.0 L (3.5-5.3) mmol/L Chloride 103 D (100-110) mmol/L Carbon Dioxide 21 L (23-29) mmol/L BUN 15 (5-20) mg/dL Creatinine 0.7 (0.6-1.3) mg/dL Est Cr Clr Drug Dosing 85.58 mL/min Estimated GFR (MDRD) > 60 (>60) BUN/Creatinine Ratio 21.4 H (9-20) Glucose 107 D (80-116) mg/dL POC Glucose (80-116) mg/dL Calcium 8.5 L (8.6-10.2) mg/dL Phosphorus (3.0-4.6) mg/dL Magnesium (1.8-2.5) mg/dL Total Bilirubin (0.1-1.3) mg/dL Direct Bilirubin 0.6 H (0.1-0.2) mg/dL AST (5-27) IU/L ALT (14-26) IU/L Alkaline Phosphatase (56-112) IU/L C-Reactive Protein 0.6 (0.0-1.0) mg/dL Total Protein (6.0-8.0) g/dL Albumin (3.5-5.2) g/dL Globulin g/dL Albumin/Globulin Ratio Amylase (28-100) U/L Vitamin B12 (211-911) pg/mL HCG, Quant (2.0 - ) mIU/mL Urine Color Yellow (YELLOW) Urine Appearance Slightly cloudy (CLEAR) Urine pH 6.0 (5.0-6.5) Ur Specific [place] 1.015 (1.010-1.025) Urine Protein 500 H (NEGATIVE) mg/dL Urine Glucose (UA) Normal (NEGATIVE) mg/dL Urine Ketones 150 H (NEGATIVE) mg/dL Urine Occult Blood Moderate H (NEGATIVE) Urine Nitrite Negative (NEGATIVE) Urine Bilirubin Small H (NEGATIVE) Urine Urobilinogen 4 H (NEGATIVE) mg/dL Ur Leukocyte Esterase Negative (NEGATIVE) Urine RBC 0-5 (0) Urine WBC 0-5 (0) Ur Squamous Epith Cells Few H (NS,R,O) Urine Bacteria Few H (NS) Hyaline Casts Many H (NS) 06/19/16 06/20/16 06/20/16 Range/Units 21:36 06:55 06:55 WBC 6.5 (4.5-12.0) X10-3/uL RBC 3.49 (3.23-5.20) x10(6)uL Hgb 12.3 D (11.5-15.5) g/dL Hct 35.1 D (30.0-51.3) % MCV 100.6 H (80-96) fL MCH 35.2 H (27.7-33.6) pg MCHC 35.0 (32.2-35.4) g/dL RDW 13.3 (11.5-15.5) % Plt Count 81 L (125-369) X10(3)uL MPV 9.0 (7.4-10.4) fL Neut % (Auto) 72.8 (46-82) % Lymph % (Auto) 14.9 (13-37) % Sherman % (Auto) 11.1 (4-12) % Eos % (Auto) 0 L (1.0-5.0) % Baso % (Auto) 1 (0-2) % Neut # (Auto) 4.7 (1.6-8.3) # Lymph # (Auto) 1.0 (0.6-5.0) # Sherman # (Auto) 0.7 (0.0-1.3) # Eos # (Auto) 0.0 (0.0-0.8) # Baso # (Auto) 0.1 (0.0-0.2) # Add Manual Diff Neutrophils % (Manual) (46-82) % Lymphocytes % (Manual) (13-37) % Monocytes % (Manual) (4-12) % Macrocytosis PT (8.7-11.1) INR (0.89-1.13) APTT (24.4-33.2) SECONDS Sodium 141 (135-145) mmol/L Potassium 2.9 L (3.5-5.3) mmol/L Chloride 107 (100-110) mmol/L Carbon Dioxide 24 (23-29) mmol/L BUN 7 (5-20) mg/dL Creatinine 0.5 L (0.6-1.3) mg/dL Est Cr Clr Drug Dosing 135.43 mL/min Estimated GFR (MDRD) > 60 (>60) BUN/Creatinine Ratio 14.0 (9-20) Glucose 103 (80-116) mg/dL POC Glucose 94 D (80-116) mg/dL Calcium 7.6 L (8.6-10.2) mg/dL Phosphorus (3.0-4.6) mg/dL Magnesium (1.8-2.5) mg/dL Total Bilirubin 2.1 H (0.1-1.3) mg/dL Direct Bilirubin (0.1-0.2) mg/dL AST 54 H D (5-27) IU/L ALT 35 H D (14-26) IU/L Alkaline Phosphatase 77 (56-112) IU/L C-Reactive Protein (0.0-1.0) mg/dL Total Protein 5.9 L (6.0-8.0) g/dL Albumin 3.2 L (3.5-5.2) g/dL Globulin 2.7 g/dL Albumin/Globulin Ratio 1.2 Amylase (28-100) U/L Vitamin B12 (211-911) pg/mL HCG, Quant (2.0 - ) mIU/mL Urine Color (YELLOW) Urine Appearance (CLEAR) Urine pH (5.0-6.5) Ur Specific [place] (1.010-1.025) Urine Protein (NEGATIVE) mg/dL Urine Glucose (UA) (NEGATIVE) mg/dL Urine Ketones (NEGATIVE) mg/dL Urine Occult Blood (NEGATIVE) Urine Nitrite (NEGATIVE) Urine Bilirubin (NEGATIVE) Urine Urobilinogen (NEGATIVE) mg/dL Ur Leukocyte Esterase (NEGATIVE) Urine RBC (0) Urine WBC (0) Ur Squamous Epith Cells (NS,R,O) Urine Bacteria (NS) Hyaline Casts (NS) 06/20/16 06/20/16 06/20/16 Range/Units 06:55 06:55 09:40 WBC (4.5-12.0) X10-3/uL RBC (3.23-5.20) x10(6)uL Hgb (11.5-15.5) g/dL Hct (30.0-51.3) % MCV (80-96) fL MCH (27.7-33.6) pg MCHC (32.2-35.4) g/dL RDW (11.5-15.5) % Plt Count (125-369) X10(3)uL MPV (7.4-10.4) fL Neut % (Auto) (46-82) % Lymph % (Auto) (13-37) % Sherman % (Auto) (4-12) % Eos % (Auto) (1.0-5.0) % Baso % (Auto) (0-2) % Neut # (Auto) (1.6-8.3) # Lymph # (Auto) (0.6-5.0) # Sherman # (Auto) (0.0-1.3) # Eos # (Auto) (0.0-0.8) # Baso # (Auto) (0.0-0.2) # Add Manual Diff Neutrophils % (Manual) (46-82) % Lymphocytes % (Manual) (13-37) % Monocytes % (Manual) (4-12) % Macrocytosis PT (8.7-11.1) INR (0.89-1.13) APTT (24.4-33.2) SECONDS Sodium (135-145) mmol/L Potassium (3.5-5.3) mmol/L Chloride (100-110) mmol/L Carbon Dioxide (23-29) mmol/L BUN (5-20) mg/dL Creatinine (0.6-1.3) mg/dL Est Cr Clr Drug Dosing mL/min Estimated GFR (MDRD) (>60) BUN/Creatinine Ratio (9-20) Glucose (80-116) mg/dL POC Glucose (80-116) mg/dL Calcium (8.6-10.2) mg/dL Phosphorus < 1.0 L* (3.0-4.6) mg/dL Magnesium 1.8 (1.8-2.5) mg/dL Total Bilirubin (0.1-1.3) mg/dL Direct Bilirubin (0.1-0.2) mg/dL AST (5-27) IU/L ALT (14-26) IU/L Alkaline Phosphatase (56-112) IU/L C-Reactive Protein (0.0-1.0) mg/dL Total Protein (6.0-8.0) g/dL Albumin (3.5-5.2) g/dL Globulin g/dL Albumin/Globulin Ratio Amylase (28-100) U/L Vitamin B12 894.0 (211-911) pg/mL HCG, Quant (2.0 - ) mIU/mL Urine Color Yellow (YELLOW) Urine Appearance Clear (CLEAR) Urine pH 6.0 (5.0-6.5) Ur Specific [place] 1.015 (1.010-1.025) Urine Protein Negative (NEGATIVE) mg/dL Urine Glucose (UA) Normal (NEGATIVE) mg/dL Urine Ketones 15 H (NEGATIVE) mg/dL Urine Occult Blood Negative (NEGATIVE) Urine Nitrite Negative (NEGATIVE) Urine Bilirubin Negative (NEGATIVE) Urine Urobilinogen Normal (NEGATIVE) mg/dL Ur Leukocyte Esterase Negative (NEGATIVE) Urine RBC 5-10 (0) Urine WBC 0-5 (0) Ur Squamous Epith Cells Occasional (NS,R,O) Urine Bacteria Not seen (NS) Hyaline Casts (NS) Result Diagrams: 06/20/16 06:55 06/20/16 06:55 Miguel Results last 24 hrs: Microbiology 06/19/16 13:40 Stool Occult Blood (MIGUEL) - Final Stool / Feces NEGATIVE OCCULT BLOOD Consult PN Assessment/Plan Procedures: Procedures ASSAY OF AMMONIA (05/02/16) ASSAY OF AMYLASE (05/02/16) ASSAY OF ETHANOL (06/30/13) ASSAY OF FERRITIN (06/30/13) ASSAY OF FOLIC ACID RBC (06/30/13) ASSAY OF FOLIC ACID SERUM (06/30/13) ASSAY OF FREE THYROXINE (06/30/13) ASSAY OF IRON (06/30/13) ASSAY OF MAGNESIUM (05/02/16) ASSAY OF PHOSPHORUS (06/30/13) ASSAY OF SERUM POTASSIUM (06/30/13) ASSAY THYROID STIM HORMONE (06/30/13) AUTOMATED RETICULOCYTE COUNT (06/30/13) BLOOD GASES ANY COMBINATION (06/30/13) CATARACT SURG W/IOL 1 STAGE (02/17/14) CATARACT SURGERY COMPLEX (03/17/14) CHEST X-RAY 1 VIEW FRONTAL (05/02/16) COMPLETE CBC AUTOMATED (06/30/13) COMPLETE CBC W/AUTO DIFF WBC (05/02/16) COMPREHEN METABOLIC PANEL (05/02/16) CT HEAD/BRAIN W/O DYE (06/30/13) EMERGENCY DEPT VISIT (05/02/16) FREE ASSAY (FT-3) (06/30/13) GAIT TRAINING THERAPY (10/01/13) HYDRATE IV INFUSION ADD-ON (05/02/16) HYDRATION IV INFUSION INIT (05/02/16) IRON BINDING TEST (06/30/13) METABOLIC PANEL TOTAL CA (06/30/13) MRI BRAIN STEM W/O DYE (06/30/13) NEUROMUSCULAR REEDUCATION (10/01/13) OCCULT BLD FECES 1-3 TESTS (06/30/13) OT EVALUATION (09/24/13) PROTHROMBIN TIME (06/30/13) PT EVALUATION (10/01/13) ROUTINE VENIPUNCTURE (05/02/16) THER/PROPH/DIAG INJ SC/IM (06/30/13) THERAPEUTIC EXERCISES (10/01/13) URINALYSIS AUTO W/SCOPE (06/30/13) US EXAM ABDOM COMPLETE (06/30/13) VITAMIN B-12 (06/30/13) WITHDRAWAL OF ARTERIAL BLOOD (06/30/13) (1) Dehydration SNOMED Code(s): 12365504 Code(s): E86.0 - DEHYDRATION Priority: High Current Visit: Yes (2) Vomiting SNOMED Code(s): 969196621 Code(s): R11.10 - VOMITING, UNSPECIFIED Current Visit: Yes Qualifiers: Nausea presence: with nausea Problem List Initiated/Reviewed/Updated: Yes My Orders last 24 hours: As above Plan: will reasses in the am with regards to upper endoscopy. will check lipase.
[2016-06-20] MEDS: Dextrose 5%-0.45% NaCl 1,000 ML IV SCH ×2 (10:54→19:03)
[2016-06-20] MEDS ORDERED: SODIUM PHOSPHATE IV ONE (11:00)
[2016-06-20] MEDS ORDERED: SODIUM CHLORIDE IV ONE (11:00)
--- NOTE | 2016-06-20 12:19 | PCM.PN ---
- General Info Date of Service: 06/20/16 Subjective Update: No overnight events. her potassium remains depleted and still having sore throat from NGT. had to be advanced last night when films showed it to be just barely past the esophagus. less than 300cc total output with coffee ground appearance. she has gotten 4 liters of fluids including several iv doses of potassium, vitamins, minerals, which has improved her urine output and brought her tachycardia down to her baseline around 110 bpm. EKG still shows sinus tach and changes noted earlier are now gone on repeat with slowing down of the heart. her bp has improved. urine is starting to clear. she tells me she is feeling more alert, but still abd tenderness mainly upper quad and low back pain. she has only required 4 mg morphin and 4 mg of ativan overnight. finally went to sleep. was in last night after work and updated on status. denies cp/pressure, alvarado, vision change, neck pain, sob, cough other than that caused by irritation by her ngt which is intact and LIS. she has gotten some throat spray which helps. no agitation or aggression over night. No severe vital fluctuations requiring intervention. She has remained afebrile and neurologically intact. No stool or flatus. nausea has improved however. has needed no oxygen. SCD on. - Review of Systems Systems Review Comment:: See hpi for pertinent positives and negatives. - Patient Data Vitals - most recent: Last Vital Signs Temp 98.8 F 06/20/16 11:33 Pulse 120 H 06/20/16 04:30 Resp 18 06/20/16 11:33 BP 104/71 06/20/16 11:33 Pulse Ox 94 L 06/20/16 11:33 Weight - most recent: 63.73 kg I&O - last 24 hours: Intake & Output 06/19/16 06/20/16 06/20/16 22:59 06:59 14:59 Intake Total 1304 2609 858 Output Total 350 920 550 Balance 954 2679 308 Imaging Impressions - last 24 hrs: CXR, Abd xray, abd US negative for acute findings at this time. Lab Results last 24 hrs: Laboratory Results - last 24 hr 06/19/16 06/19/16 06/19/16 Range/Units 12:49 12:50 12:50 WBC 12.1 H (4.5-12.0) X10-3/uL RBC 5.31 H (3.23-5.20) x10(6)uL Hgb 17.8 H D (11.5-15.5) g/dL Hct 53.3 H D (30.0-51.3) % MCV 100.4 H (80-96) fL MCH 33.6 (27.7-33.6) pg MCHC 33.5 (32.2-35.4) g/dL RDW 13.1 (11.5-15.5) % Plt Count 146 (125-369) X10(3)uL MPV 9.3 (7.4-10.4) fL Neut % (Auto) (46-82) % Lymph % (Auto) (13-37) % [place] % (Auto) (4-12) % Eos % (Auto) (1.0-5.0) % Baso % (Auto) (0-2) % Neut # (Auto) (1.6-8.3) # Lymph # (Auto) (0.6-5.0) # [place] # (Auto) (0.0-1.3) # Eos # (Auto) (0.0-0.8) # Baso # (Auto) (0.0-0.2) # Add Manual Diff Yes Neutrophils % (Manual) 84 H (46-82) % Lymphocytes % (Manual) 12 L (13-37) % Monocytes % (Manual) 4 (4-12) % Macrocytosis Few PT 16.4 H (8.7-11.1) INR 1.60 H (0.89-1.13) APTT 25.1 (24.4-33.2) SECONDS Sodium (135-145) mmol/L Potassium (3.5-5.3) mmol/L Chloride (100-110) mmol/L Carbon Dioxide (23-29) mmol/L BUN (5-20) mg/dL Creatinine (0.6-1.3) mg/dL Est Cr Clr Drug Dosing mL/min Estimated GFR (MDRD) (>60) BUN/Creatinine Ratio (9-20) Glucose (80-116) mg/dL POC Glucose 191 H D (80-116) mg/dL Calcium (8.6-10.2) mg/dL Phosphorus (3.0-4.6) mg/dL Magnesium (1.8-2.5) mg/dL Total Bilirubin (0.1-1.3) mg/dL Direct Bilirubin (0.1-0.2) mg/dL AST (5-27) IU/L ALT (14-26) IU/L Alkaline Phosphatase (56-112) IU/L C-Reactive Protein (0.0-1.0) mg/dL Total Protein (6.0-8.0) g/dL Albumin (3.5-5.2) g/dL Globulin g/dL Albumin/Globulin Ratio Amylase (28-100) U/L Vitamin B12 (211-911) pg/mL HCG, Quant (2.0 - ) mIU/mL Urine Color (YELLOW) Urine Appearance (CLEAR) Urine pH (5.0-6.5) Ur Specific [place] (1.010-1.025) Urine Protein (NEGATIVE) mg/dL Urine Glucose (UA) (NEGATIVE) mg/dL Urine Ketones (NEGATIVE) mg/dL Urine Occult Blood (NEGATIVE) Urine Nitrite (NEGATIVE) Urine Bilirubin (NEGATIVE) Urine Urobilinogen (NEGATIVE) mg/dL Ur Leukocyte Esterase (NEGATIVE) Urine RBC (0) Urine WBC (0) Ur Squamous Epith Cells (NS,R,O) Urine Bacteria (NS) Hyaline Casts (NS) 06/19/16 06/19/16 06/19/16 Range/Units 12:50 12:50 13:35 WBC (4.5-12.0) X10-3/uL RBC (3.23-5.20) x10(6)uL Hgb (11.5-15.5) g/dL Hct (30.0-51.3) % MCV (80-96) fL MCH (27.7-33.6) pg MCHC (32.2-35.4) g/dL RDW (11.5-15.5) % Plt Count (125-369) X10(3)uL MPV (7.4-10.4) fL Neut % (Auto) (46-82) % Lymph % (Auto) (13-37) % [place] % (Auto) (4-12) % Eos % (Auto) (1.0-5.0) % Baso % (Auto) (0-2) % Neut # (Auto) (1.6-8.3) # Lymph # (Auto) (0.6-5.0) # [place] # (Auto) (0.0-1.3) # Eos # (Auto) (0.0-0.8) # Baso # (Auto) (0.0-0.2) # Add Manual Diff Neutrophils % (Manual) (46-82) % Lymphocytes % (Manual) (13-37) % Monocytes % (Manual) (4-12) % Macrocytosis PT (8.7-11.1) INR (0.89-1.13) APTT (24.4-33.2) SECONDS Sodium 134 L (135-145) mmol/L Potassium 2.3 L* (3.5-5.3) mmol/L Chloride 89 L* D (100-110) mmol/L Carbon Dioxide 14 L (23-29) mmol/L BUN 24 H D (5-20) mg/dL Creatinine 1.4 H (0.6-1.3) mg/dL Est Cr Clr Drug Dosing 42.79 mL/min Estimated GFR (MDRD) 40 L (>60) BUN/Creatinine Ratio 17.1 (9-20) Glucose 204 H D (80-116) mg/dL POC Glucose (80-116) mg/dL Calcium 10.1 D (8.6-10.2) mg/dL Phosphorus 2.1 L (3.0-4.6) mg/dL Magnesium 1.7 L (1.8-2.5) mg/dL Total Bilirubin 3.7 H (0.1-1.3) mg/dL Direct Bilirubin (0.1-0.2) mg/dL AST 70 H D (5-27) IU/L ALT 62 H D (14-26) IU/L Alkaline Phosphatase 136 H (56-112) IU/L C-Reactive Protein (0.0-1.0) mg/dL Total Protein 9.2 H (6.0-8.0) g/dL Albumin 5.1 (3.5-5.2) g/dL Globulin 4.1 g/dL Albumin/Globulin Ratio 1.2 Amylase 102 H (28-100) U/L Vitamin B12 (211-911) pg/mL HCG, Quant 2 (2.0 - ) mIU/mL Urine Color (YELLOW) Urine Appearance (CLEAR) Urine pH (5.0-6.5) Ur Specific [place] (1.010-1.025) Urine Protein (NEGATIVE) mg/dL Urine Glucose (UA) (NEGATIVE) mg/dL Urine Ketones (NEGATIVE) mg/dL Urine Occult Blood (NEGATIVE) Urine Nitrite (NEGATIVE) Urine Bilirubin (NEGATIVE) Urine Urobilinogen (NEGATIVE) mg/dL Ur Leukocyte Esterase (NEGATIVE) Urine RBC (0) Urine WBC (0) Ur Squamous Epith Cells (NS,R,O) Urine Bacteria (NS) Hyaline Casts (NS) 06/19/16 06/19/16 06/19/16 Range/Units 14:40 20:10 20:10 WBC (4.5-12.0) X10-3/uL RBC (3.23-5.20) x10(6)uL Hgb (11.5-15.5) g/dL Hct (30.0-51.3) % MCV (80-96) fL MCH (27.7-33.6) pg MCHC (32.2-35.4) g/dL RDW (11.5-15.5) % Plt Count (125-369) X10(3)uL MPV (7.4-10.4) fL Neut % (Auto) (46-82) % Lymph % (Auto) (13-37) % [place] % (Auto) (4-12) % Eos % (Auto) (1.0-5.0) % Baso % (Auto) (0-2) % Neut # (Auto) (1.6-8.3) # Lymph # (Auto) (0.6-5.0) # [place] # (Auto) (0.0-1.3) # Eos # (Auto) (0.0-0.8) # Baso # (Auto) (0.0-0.2) # Add Manual Diff Neutrophils % (Manual) (46-82) % Lymphocytes % (Manual) (13-37) % Monocytes % (Manual) (4-12) % Macrocytosis PT (8.7-11.1) INR (0.89-1.13) APTT (24.4-33.2) SECONDS Sodium 139 (135-145) mmol/L Potassium 3.0 L (3.5-5.3) mmol/L Chloride 103 D (100-110) mmol/L Carbon Dioxide 21 L (23-29) mmol/L BUN 15 (5-20) mg/dL Creatinine 0.7 (0.6-1.3) mg/dL Est Cr Clr Drug Dosing 85.58 mL/min Estimated GFR (MDRD) > 60 (>60) BUN/Creatinine Ratio 21.4 H (9-20) Glucose 107 D (80-116) mg/dL POC Glucose (80-116) mg/dL Calcium 8.5 L (8.6-10.2) mg/dL Phosphorus (3.0-4.6) mg/dL Magnesium (1.8-2.5) mg/dL Total Bilirubin (0.1-1.3) mg/dL Direct Bilirubin 0.6 H (0.1-0.2) mg/dL AST (5-27) IU/L ALT (14-26) IU/L Alkaline Phosphatase (56-112) IU/L C-Reactive Protein 0.6 (0.0-1.0) mg/dL Total Protein (6.0-8.0) g/dL Albumin (3.5-5.2) g/dL Globulin g/dL Albumin/Globulin Ratio Amylase (28-100) U/L Vitamin B12 (211-911) pg/mL HCG, Quant (2.0 - ) mIU/mL Urine Color Yellow (YELLOW) Urine Appearance Slightly cloudy (CLEAR) Urine pH 6.0 (5.0-6.5) Ur Specific [place] 1.015 (1.010-1.025) Urine Protein 500 H (NEGATIVE) mg/dL Urine Glucose (UA) Normal (NEGATIVE) mg/dL Urine Ketones 150 H (NEGATIVE) mg/dL Urine Occult Blood Moderate H (NEGATIVE) Urine Nitrite Negative (NEGATIVE) Urine Bilirubin Small H (NEGATIVE) Urine Urobilinogen 4 H (NEGATIVE) mg/dL Ur Leukocyte Esterase Negative (NEGATIVE) Urine RBC 0-5 (0) Urine WBC 0-5 (0) Ur Squamous Epith Cells Few H (NS,R,O) Urine Bacteria Few H (NS) Hyaline Casts Many H (NS) 06/19/16 06/20/16 06/20/16 Range/Units 21:36 06:55 06:55 WBC 6.5 (4.5-12.0) X10-3/uL RBC 3.49 (3.23-5.20) x10(6)uL Hgb 12.3 D (11.5-15.5) g/dL Hct 35.1 D (30.0-51.3) % MCV 100.6 H (80-96) fL MCH 35.2 H (27.7-33.6) pg MCHC 35.0 (32.2-35.4) g/dL RDW 13.3 (11.5-15.5) % Plt Count 81 L (125-369) X10(3)uL MPV 9.0 (7.4-10.4) fL Neut % (Auto) 72.8 (46-82) % Lymph % (Auto) 14.9 (13-37) % [place] % (Auto) 11.1 (4-12) % Eos % (Auto) 0 L (1.0-5.0) % Baso % (Auto) 1 (0-2) % Neut # (Auto) 4.7 (1.6-8.3) # Lymph # (Auto) 1.0 (0.6-5.0) # [place] # (Auto) 0.7 (0.0-1.3) # Eos # (Auto) 0.0 (0.0-0.8) # Baso # (Auto) 0.1 (0.0-0.2) # Add Manual Diff Neutrophils % (Manual) (46-82) % Lymphocytes % (Manual) (13-37) % Monocytes % (Manual) (4-12) % Macrocytosis PT (8.7-11.1) INR (0.89-1.13) APTT (24.4-33.2) SECONDS Sodium 141 (135-145) mmol/L Potassium 2.9 L (3.5-5.3) mmol/L Chloride 107 (100-110) mmol/L Carbon Dioxide 24 (23-29) mmol/L BUN 7 (5-20) mg/dL Creatinine 0.5 L (0.6-1.3) mg/dL Est Cr Clr Drug Dosing 135.43 mL/min Estimated GFR (MDRD) > 60 (>60) BUN/Creatinine Ratio 14.0 (9-20) Glucose 103 (80-116) mg/dL POC Glucose 94 D (80-116) mg/dL Calcium 7.6 L (8.6-10.2) mg/dL Phosphorus (3.0-4.6) mg/dL Magnesium (1.8-2.5) mg/dL Total Bilirubin 2.1 H (0.1-1.3) mg/dL Direct Bilirubin (0.1-0.2) mg/dL AST 54 H D (5-27) IU/L ALT 35 H D (14-26) IU/L Alkaline Phosphatase 77 (56-112) IU/L C-Reactive Protein (0.0-1.0) mg/dL Total Protein 5.9 L (6.0-8.0) g/dL Albumin 3.2 L (3.5-5.2) g/dL Globulin 2.7 g/dL Albumin/Globulin Ratio 1.2 Amylase (28-100) U/L Vitamin B12 (211-911) pg/mL HCG, Quant (2.0 - ) mIU/mL Urine Color (YELLOW) Urine Appearance (CLEAR) Urine pH (5.0-6.5) Ur Specific [place] (1.010-1.025) Urine Protein (NEGATIVE) mg/dL Urine Glucose (UA) (NEGATIVE) mg/dL Urine Ketones (NEGATIVE) mg/dL Urine Occult Blood (NEGATIVE) Urine Nitrite (NEGATIVE) Urine Bilirubin (NEGATIVE) Urine Urobilinogen (NEGATIVE) mg/dL Ur Leukocyte Esterase (NEGATIVE) Urine RBC (0) Urine WBC (0) Ur Squamous Epith Cells (NS,R,O) Urine Bacteria (NS) Hyaline Casts (NS) 06/20/16 06/20/16 06/20/16 Range/Units 06:55 06:55 09:40 WBC (4.5-12.0) X10-3/uL RBC (3.23-5.20) x10(6)uL Hgb (11.5-15.5) g/dL Hct (30.0-51.3) % MCV (80-96) fL MCH (27.7-33.6) pg MCHC (32.2-35.4) g/dL RDW (11.5-15.5) % Plt Count (125-369) X10(3)uL MPV (7.4-10.4) fL Neut % (Auto) (46-82) % Lymph % (Auto) (13-37) % [place] % (Auto) (4-12) % Eos % (Auto) (1.0-5.0) % Baso % (Auto) (0-2) % Neut # (Auto) (1.6-8.3) # Lymph # (Auto) (0.6-5.0) # [place] # (Auto) (0.0-1.3) # Eos # (Auto) (0.0-0.8) # Baso # (Auto) (0.0-0.2) # Add Manual Diff Neutrophils % (Manual) (46-82) % Lymphocytes % (Manual) (13-37) % Monocytes % (Manual) (4-12) % Macrocytosis PT (8.7-11.1) INR (0.89-1.13) APTT (24.4-33.2) SECONDS Sodium (135-145) mmol/L Potassium (3.5-5.3) mmol/L Chloride (100-110) mmol/L Carbon Dioxide (23-29) mmol/L BUN (5-20) mg/dL Creatinine (0.6-1.3) mg/dL Est Cr Clr Drug Dosing mL/min Estimated GFR (MDRD) (>60) BUN/Creatinine Ratio (9-20) Glucose (80-116) mg/dL POC Glucose (80-116) mg/dL Calcium (8.6-10.2) mg/dL Phosphorus < 1.0 L* (3.0-4.6) mg/dL Magnesium 1.8 (1.8-2.5) mg/dL Total Bilirubin (0.1-1.3) mg/dL Direct Bilirubin (0.1-0.2) mg/dL AST (5-27) IU/L ALT (14-26) IU/L Alkaline Phosphatase (56-112) IU/L C-Reactive Protein (0.0-1.0) mg/dL Total Protein (6.0-8.0) g/dL Albumin (3.5-5.2) g/dL Globulin g/dL Albumin/Globulin Ratio Amylase (28-100) U/L Vitamin B12 894.0 (211-911) pg/mL HCG, Quant (2.0 - ) mIU/mL Urine Color Yellow (YELLOW) Urine Appearance Clear (CLEAR) Urine pH 6.0 (5.0-6.5) Ur Specific [place] 1.015 (1.010-1.025) Urine Protein Negative (NEGATIVE) mg/dL Urine Glucose (UA) Normal (NEGATIVE) mg/dL Urine Ketones 15 H (NEGATIVE) mg/dL Urine Occult Blood Negative (NEGATIVE) Urine Nitrite Negative (NEGATIVE) Urine Bilirubin Negative (NEGATIVE) Urine Urobilinogen Normal (NEGATIVE) mg/dL Ur Leukocyte Esterase Negative (NEGATIVE) Urine RBC 5-10 (0) Urine WBC 0-5 (0) Ur Squamous Epith Cells Occasional (NS,R,O) Urine Bacteria Not seen (NS) Hyaline Casts (NS) Miguel Results last 24 hrs: Microbiology 06/19/16 13:40 Stool Occult Blood (MIGUEL) - Final Stool / Feces NEGATIVE OCCULT BLOOD Med Orders - Current: Current Medications Dextrose/Sodium Chloride (Dextrose 5%-1/2 Ns) 1,000 mls @ 125 mls/hr IV ASDIRECTED [facility] Last Admin: 06/20/16 10:54 Dose: 125 mls/hr Sodium Phosphate 25 mmole/ (Sodium Chloride) 508.3333 mls @ 63 mls/hr IV ONETIME ONE Stop: 06/20/16 19:04 Last Admin: 06/20/16 11:30 Dose: 63 mls/hr Lorazepam (Ativan) 0 mg IVPUSH Q1H PRN; Protocol PRN Reason: [facility] protocol Lorazepam (Ativan) 0 mg PO Q1H PRN; Protocol PRN Reason: per [facility] protocol Pantoprazole Sodium (Protonix Iv) 40 mg IVPUSH DAILY [facility] Last Admin: 06/20/16 09:09 Dose: 40 mg Discontinued Medications Alprazolam (Xanax) 0.5 mg PO BID PRN PRN Reason: Anxiety Lactated Ringer's (Ringers, Lactated) 1,000 mls @ 999 mls/hr IV .BOLUS [facility] Last Admin: 06/19/16 12:40 Dose: 999 mls/hr Dextrose/Sodium Chloride (Dextrose 5%-Normal Saline) 1,000 mls @ 999 mls/hr IV ASDIRECTED [facility] Last Admin: 06/19/16 14:00 Dose: 999 mls/hr Potassium Chloride 20 meq/ (Premix) 100 mls @ 50 mls/hr IV Q2H [facility] Stop: 06/19/16 17:59 Last Admin: 06/19/16 16:47 Dose: 50 mls/hr Multivitamins/Minerals 10 ml/Thiamine HCl 100 mg/ Folic Acid 1 mg/ Magnesium Sulfate 3 gm/ Sodium Chloride 1,017.2 mls @ 125 mls/hr IV ONETIME ONE Stop: 06/20/16 02:08 Last Admin: 06/19/16 18:58 Dose: 125 mls/hr Potassium Chloride/Sodium Chloride (Normal Saline With 20 Meq Kcl) 1,000 mls @ 125 mls/hr IV Q8H [facility] Last Admin: 06/19/16 16:40 Dose: 125 mls/hr Potassium Chloride/Sodium Chloride (Normal Saline With 20 Meq Kcl) 1,000 mls @ 250 mls/hr IV Q8H [facility] Last Admin: 06/20/16 05:38 Dose: 250 mls/hr Potassium Chloride 20 meq/ (Premix) 100 mls @ 50 mls/hr IV Q2H [facility] Stop: 06/20/16 11:59 Last Admin: 06/20/16 11:10 Dose: 50 mls/hr Lorazepam (Ativan) 1 mg IVPUSH ONETIME ONE Stop: 06/19/16 14:37 Last Admin: 06/19/16 14:52 Dose: 1 mg Lorazepam (Ativan) 2 mg IVPUSH ONETIME ONE Stop: 06/19/16 17:21 Last Admin: 06/19/16 17:33 Dose: 2 mg Morphine Sulfate (Morphine) 1 mg IVPUSH ONETIME ONE Stop: 06/19/16 14:26 Last Admin: 06/19/16 14:45 Dose: 1 mg Morphine Sulfate (Morphine) Confirm Administered Dose 2 mg .ROUTE .STK-MED ONE Stop: 06/19/16 14:37 Last Admin: 06/19/16 14:56 Dose: Not Given Morphine Sulfate (Morphine) 2 mg IVPUSH Q2H PRN PRN Reason: Pain Stop: 06/20/16 00:30 Last Admin: 06/19/16 18:55 Dose: 2 mg Morphine Sulfate (Morphine) 2 mg IVPUSH ONETIME ONE Stop: 06/20/16 00:48 Last Admin: 06/20/16 00:59 Dose: 2 mg Ondansetron HCl (Zofran) 4 mg IV Q4H PRN PRN Reason: Nausea/Vomiting Ondansetron HCl (Zofran) Confirm Administered Dose 4 mg .ROUTE .STK-MED ONE Stop: 06/19/16 13:32 Last Admin: 06/19/16 14:56 Dose: Not Given Pneumococcal Polyvalent Vaccine (Pneumovax 23) 0.5 ml IM .ONCE ONE Stop: 06/19/16 16:15 Potassium Chloride (Klor-Con 10) 20 meq PO DAILY ERICH - Exam Quality Assessment: urine catheter, DVT prophylaxis General: oriented, cooperative, no acute distress, lethargic HEENT: Pupils equal, Pupils reactive, EOMI, Mucous membr. moist/pink, Other ( ngt left nasal passage. op without blood or airway compromise). No: Scleral icterus Neck: supple, trachea midline, no JVD, no thyromegaly. No: lymphadenopathy Lungs: Clear to auscultation, Normal respiratory effort Cardiovascular: Regular Rhythm, No Murmurs, Tachycardia Abdomen: bowel sounds present (now present in all quadrants.), soft. No: rigidity, guarding, CVA tenderness Back Exam: No: vertebral tenderness Extremities: no edema, no tenderness/swelling Skin: dry, intact, cool Neurological: no new focal deficit. No: normal speech Psy/Mental Status: normal mood. No: agitated, hallucinations - Problem List & Annotations (1) Vomiting SNOMED Code(s): 601247608 Code(s): R11.10 - VOMITING, UNSPECIFIED Status: Acute Current Visit: Yes Qualifiers: Nausea presence: with nausea (2) Hypokalemia SNOMED Code(s): 34597174 Code(s): E87.6 - HYPOKALEMIA Status: Acute Current Visit: Yes (3) Ileus, unspecified SNOMED Code(s): 79796460 Code(s): K56.7 - ILEUS, UNSPECIFIED Status: Acute Current Visit: Yes (4) Dehydration SNOMED Code(s): 39791041 Code(s): E86.0 - DEHYDRATION Status: Acute Priority: High Current Visit : Yes (5) Hyponatremia SNOMED Code(s): 17586767 Code(s): E87.1 - HYPO-OSMOLALITY AND HYPONATREMIA Status: Acute Current Visit: Yes (6) Fatty liver, alcoholic SNOMED Code(s): 50555922 Code(s): K70.0 - ALCOHOLIC FATTY LIVER Status: Acute Current Visit: Yes (7) Gallstones without obstruction of gallbladder SNOMED Code(s): 00805061 Code(s): K80.20 - CALCULUS OF GALLBLADDER W/O CHOLECYSTITIS W/O OBSTRUCTION Status: Acute Current Visit: Yes Qualifiers: Cholelithiasis location: gallbladder Cholecystitis presence: without cholecystitis Qualified Code(s): K80.20 - Calculus of gallbladder without cholecystitis without obstruction (8) Complaint of debility and malaise SNOMED Code(s): 906722485 Code(s): R53.81 - OTHER MALAISE Status: Acute Priority: High Current Visit: Yes (9) Malnutrition compromising bodily function SNOMED Code(s): 3762271 Code(s): E46 - UNSPECIFIED PROTEIN-CALORIE MALNUTRITION Status: Chronic Priority: High Current Visit: Yes (10) Metabolic acidosis SNOMED Code(s): 64436599 Code(s): E87.2 - ACIDOSIS Status: Acute Current Visit: Yes (11) Recent urinary tract infection SNOMED Code(s): 3809029017515 Code(s): Z87.440 - PERSONAL HISTORY OF URINARY (TRACT) INFECTIONS Status: Acute Current Visit: Yes (12) Acute on chronic alteration in mental status SNOMED Code(s): 573531691 Code(s): R41.82 - ALTERED MENTAL STATUS, UNSPECIFIED Status: Acute Current Visit: Yes (13) Mobility impaired SNOMED Code(s): 63310489 Code(s): Z74.09 - OTHER REDUCED MOBILITY Status: Chronic Current Visit: Yes (14) Alcohol addiction SNOMED Code(s): 33860862, 972661774 Code(s): F10.20 - ALCOHOL DEPENDENCE, UNCOMPLICATED Status: Chronic Current Visit: Yes Qualifiers: Substance use status: other alcohol-induced disorder Qualified Code(s): F10.288 - Alcohol dependence with other alcohol-induced disorder (15) Alcoholic liver damage, unspecified SNOMED Code(s): 99060141 Code(s): K70.9 - ALCOHOLIC LIVER DISEASE, UNSPECIFIED Status: Chronic Priority: High Current Visit: Yes - Problem List Review Problem List Initiated/Reviewed/Updated: Yes - My Orders Last 24 Hours: My Active Orders 06/19/16 12:13 Head of Bed Elevation [RC] ASDIRECTED Height and Weight [RC] 0600 Up With Assistance [RC] ASDIRECTED Consult to Accounting Tutor [CONS] Routine Consult to Field Reviewer [CONS] Routine LORazepam [Ativan] See Protocol IVPUSH Q1H PRN Blood Culture x2 Reflex Set [OM.PC] Urgent ED Alcohol and Substance Abuse Reflex [OM.PC] Click to Edit VTE Pharmacological Contraindications [AST] Per Unit Routine Resuscitation Status Routine 06/19/16 12:14 Patient Status [ADT] Routine Oxygen Therapy [RC] PRN Vital Signs [RC] 00,04,08,12,16,20 06/19/16 12:15 Pantoprazole [ProTONIX IV] 40 mg IVPUSH DAILY 06/19/16 12:18 Cardiac Monitoring [RC] QSHIFT Intake and Output [RC] 20,00,04,08,12,16 06/19/16 12:19 Notify Provider Vital Signs [RC] ASDIRECTED 06/19/16 12:21 Sequential Compression Device [OM.PC] Per Unit Routine 06/19/16 12:40 LORazepam [Ativan] See Protocol PO Q1H PRN 06/19/16 12:50 AMMONIA [REF] Routine CULTURE BLOOD [BC] Urgent CULTURE BLOOD [BC] Urgent 06/19/16 13:35 LIPASE [REF] Routine 06/19/16 13:48 Transfer Patient (Change bed) [ADT] Routine 06/19/16 13:49 EKG 12 Lead [EK] Routine 06/19/16 13:54 NG [Nasogastric Orogastric Tube Insertion] [OM.PC] Routine 06/19/16 14:16 Urinary Catheter Assessment [RC] QSHIFT 06/19/16 14:30 Insert [place] Catheter [Insert Urinary Catheter] [OM.PC] Q24H 06/19/16 16:29 CULTURE URINE [RM] Routine 06/19/16 20:10 HEPATITIS PANEL,ACUTE [REF] Routine 06/19/16 21:00 Blood Glucose Check, Bedside [RC] BID 06/19/16 Dinner NPO Now [Nothing per Oral Now Diet] [DIET] 06/20/16 08:07 Gastrointestinal Tube Mgmt [RC] ASDIRECTED 06/20/16 08:10 Consult to Physician [CONS] Routine 06/20/16 08:15 Dextrose 5%-0.45% NaCl [Dextrose 5%-1/2 NS] 1,000 ml IV ASDIRECTED 06/20/16 10:56 NG [Nasogastric Orogastric Tube Removal] [OM.PC] Routine 06/20/16 11:00 Sodium Phosphate 25 mmole Sodium Chloride 0.9% [Normal Saline] 500 ml IV ONETIME 06/20/16 16:00 BASIC METABOLIC PANEL,BMP [CHEM] Timed 06/21/16 12:15 COMPREHENSIVE METABOLIC PN,CMP [CHEM] DAILY 06/22/16 12:15 COMPREHENSIVE METABOLIC PN,CMP [CHEM] DAILY - Assessment Assessment:: see above. labs and clinic status improving slowly. further studies pending. bowels are waking up and she has good clearing urine output, with alertness and communication improving. no severe withdrawl symptoms. - Plan Plan:: will turn her fluids down and continue to replace potassium, and now phosphorus IV as she is unable to tolerate orals. will pull the ngt. continue with [place]. surgery to see and assess this morning and appreciate. still running tachy but improved. bp improved. spoke with on the phone and updated. he will be here in the afternoon at lunch from work. patient is agreeable and pleasant. she is oriented to condition place and answers questions appropriately. will keep her in ICU today and if continues to improve will consider transfer over to med/surg tomorrow.
[2016-06-20] MEDS ORDERED: Potassium Chloride 20 MEQ Tab.ER PO SCH (16:30)
[2016-06-20] MEDS: Acetaminophen 325 MG Tab PO PRN (17:00)
[2016-06-20] MEDS ORDERED: Metoclopramide 10 MG/2 ML SDV IV PRN (17:06)
[2016-06-20] MEDS ORDERED: Calcium Acetate 667 MG Cap PO SCH (18:00)
[2016-06-20] MEDS: Morphine 2 MG/ML Syringe IVPUSH PRN (18:14)
[2016-06-21] MEDS: Dextrose 5%-0.45% NaCl 1,000 ML IV SCH (03:25)
[2016-06-21] MEDS ORDERED: NS + KCl 20mEq/L 1,000 ML IV SCH (09:00)
[2016-06-21] MEDS: Pantoprazole 40 MG Vial IVPUSH SCH (09:36)
[2016-06-21] MEDS: Potassium Chloride 20 MEQ Packet PO SCH ×3 (09:37→16:49)
--- NOTE | 2016-06-21 09:57 | PN ---
DATE SEEN: 06/21/2016 CHIEF COMPLAINT: Weakness. HISTORY OF PRESENT ILLNESS: This is a 51-year-old female, admitted 2 days ago with generalized weakness and confusion. She was found to be dehydrated, hypokalemic, and has been treated with IV fluid replacement and potassium replacement. This morning, she complains of still having weakness unable to get up on her own. It is generalized and global. She furthermore complains of inability to swallow. She is having a lot of choking and vomiting with more than 5 sips of any fluid and no solids at all. She does have a history of alcohol abuse, GERD, anxiety, and frequent dehydration. REVIEW OF SYSTEMS: She complains of abdominal bloating and mild pain. No constipation or diarrhea. She denies any headache. SOCIAL HISTORY: Lives with her . MEDICATIONS: Please see the nurse's notes and the electronic record. ALLERGIES: Please see the nurse's notes and the electronic record. PHYSICAL EXAMINATION: VITAL SIGNS: Blood pressure today is 100/58, temperature is 98.5. ENT: Negative. CARDIOVASCULAR: Normal. ABDOMEN: Mildly distended, but no tenderness to palpation. No masses. RESPIRATORY: Clear. MENTAL STATUS: Flat affect, slurred speech. No signs of lyndsey or psychosis. LABORATORY DATA: Potassium down to 2.6 today, but normal sodium. AST and ALT are elevated in a 1:2 ratio. UA is negative. Phosphorus 1.5 yesterday. IMPRESSION: 1. Abdominal bloating. 2. Hypokalemia likely due to GI losses. 3. Vomiting and choking. 4. Gastroesophageal reflux disease. 5. Alcohol abuse. 6. Anxiety. 7. Generalized weakness of unknown reason, possibly multifactorial. PLAN: To replace potassium and repeat in the morning. Transfer from ICU to medical bed. Continue IV fluids and change it to half normal saline with 20 of K. I will give a powder 20 mEq of potassium 3 times a day. I have asked physical and occupational therapy to see her for strengthening and rehabilitation, and I believe Dr. Archer is on board for possible EGD. /[id number] TN/MODL
[2016-06-21] MEDS: Sodium Chloride 0.45% with KCl 1,000 ML IV SCH ×2 (11:32→19:40)
--- NOTE | 2016-06-21 12:21 | PCM.SURGPN ---
- General Info Date of Service: 06/21/16 - Review of Systems General: Reports: Other (no sig changes still with hypo K ) Gastrointestinal: Reports: Abdominal pain. Denies: Nausea - Patient Data Vitals - most recent: Last Vital Signs Temp 36.9 C 06/21/16 04:00 Pulse 98 06/21/16 04:00 Resp 16 06/21/16 04:00 BP 100/58 L 06/21/16 04:00 Pulse Ox 95 06/21/16 04:00 Weight - most recent: 63.73 kg I&O - last 24 hours: Intake & Output 06/20/16 06/21/16 06/21/16 22:59 06:59 14:59 Intake Total 1765 1099 Output Total 425 500 Balance 1340 599 Lab Results last 24 hrs: Laboratory Results - last 24 hr 06/19/16 06/19/16 06/20/16 Range/Units 12:50 13:35 16:08 WBC (4.5-12.0) X10-3/uL RBC (3.23-5.20) x10(6)uL Hgb (11.5-15.5) g/dL Hct (30.0-51.3) % MCV (80-96) fL MCH (27.7-33.6) pg MCHC (32.2-35.4) g/dL RDW (11.5-15.5) % Plt Count (125-369) X10(3)uL Sodium 138 (135-145) mmol/L Potassium 2.4 L* (3.5-5.3) mmol/L Chloride 103 (100-110) mmol/L Carbon Dioxide 26 (23-29) mmol/L BUN 3 L (5-20) mg/dL Creatinine 0.4 L (0.6-1.3) mg/dL Est Cr Clr Drug Dosing 169.28 mL/min Estimated GFR (MDRD) > 60 (>60) BUN/Creatinine Ratio 7.5 L (9-20) Glucose 114 (80-116) mg/dL POC Glucose (80-116) mg/dL Calcium 7.3 L (8.6-10.2) mg/dL Phosphorus (3.0-4.6) mg/dL Total Bilirubin (0.1-1.3) mg/dL AST (5-27) IU/L ALT (14-26) IU/L Alkaline Phosphatase (56-112) IU/L Ammonia 261 H (16-53) umol/L Total Protein (6.0-8.0) g/dL Albumin (3.5-5.2) g/dL Globulin g/dL Albumin/Globulin Ratio Lipase 70 H (13-60) U/L 06/20/16 06/20/16 06/21/16 Range/Units 20:52 22:00 06:35 WBC (4.5-12.0) X10-3/uL RBC (3.23-5.20) x10(6)uL Hgb (11.5-15.5) g/dL Hct (30.0-51.3) % MCV (80-96) fL MCH (27.7-33.6) pg MCHC (32.2-35.4) g/dL RDW (11.5-15.5) % Plt Count (125-369) X10(3)uL Sodium 139 139 (135-145) mmol/L Potassium 3.1 L 2.6 L* (3.5-5.3) mmol/L Chloride 104 105 (100-110) mmol/L Carbon Dioxide 25 26 (23-29) mmol/L BUN 3 L < 5 L (5-20) mg/dL Creatinine 0.3 L 0.3 L (0.6-1.3) mg/dL Est Cr Clr Drug Dosing 225.71 225.71 mL/min Estimated GFR (MDRD) > 60 > 60 (>60) BUN/Creatinine Ratio 10.0 16.7 (9-20) Glucose 109 105 (80-116) mg/dL POC Glucose 106 (80-116) mg/dL Calcium 7.1 L 7.5 L (8.6-10.2) mg/dL Phosphorus 1.7 L (3.0-4.6) mg/dL Total Bilirubin 1.5 H (0.1-1.3) mg/dL AST 104 H D (5-27) IU/L ALT 41 H D (14-26) IU/L Alkaline Phosphatase 78 (56-112) IU/L Ammonia (16-53) umol/L Total Protein 5.4 L (6.0-8.0) g/dL Albumin 3.0 L (3.5-5.2) g/dL Globulin 2.4 g/dL Albumin/Globulin Ratio 1.3 Lipase (13-60) U/L 06/21/16 Range/Units 06:35 WBC 3.6 L (4.5-12.0) X10-3/uL RBC 3.50 (3.23-5.20) x10(6)uL Hgb 11.9 (11.5-15.5) g/dL Hct 35.2 (30.0-51.3) % MCV 100.7 H (80-96) fL MCH 34.1 H (27.7-33.6) pg MCHC 33.8 (32.2-35.4) g/dL RDW 13.6 (11.5-15.5) % Plt Count 77 L (125-369) X10(3)uL Sodium (135-145) mmol/L Potassium (3.5-5.3) mmol/L Chloride (100-110) mmol/L Carbon Dioxide (23-29) mmol/L BUN (5-20) mg/dL Creatinine (0.6-1.3) mg/dL Est Cr Clr Drug Dosing mL/min Estimated GFR (MDRD) (>60) BUN/Creatinine Ratio (9-20) Glucose (80-116) mg/dL POC Glucose (80-116) mg/dL Calcium (8.6-10.2) mg/dL Phosphorus (3.0-4.6) mg/dL Total Bilirubin (0.1-1.3) mg/dL AST (5-27) IU/L ALT (14-26) IU/L Alkaline Phosphatase (56-112) IU/L Ammonia (16-53) umol/L Total Protein (6.0-8.0) g/dL Albumin (3.5-5.2) g/dL Globulin g/dL Albumin/Globulin Ratio Lipase (13-60) U/L Miguel Results last 24 hrs: Microbiology 06/19/16 16:29 Urine Culture - Preliminary Urine, Catheterized NO GROWTH AFTER 1 DAY 06/19/16 12:50 Aerobic Blood Culture - Preliminary Blood - Venous - Lab Draw NO GROWTH AFTER 1 DAY Anaerobic Blood Culture - Preliminary NO GROWTH AFTER 1 DAY 06/19/16 12:50 Aerobic Blood Culture - Preliminary Blood - Venous NO GROWTH AFTER 1 DAY Anaerobic Blood Culture - Preliminary NO GROWTH AFTER 1 DAY Med Orders - Current: Current Medications Acetaminophen (Tylenol) 650 mg PO Q4H PRN PRN Reason: Pain Last Admin: 06/20/16 17:00 Dose: 650 mg Potassium Chloride/Sodium Chloride (1/2 Ns With 20 Meq Kcl) 1,000 mls @ 125 mls /hr IV Q8H [facility] Last Admin: 06/21/16 11:32 Dose: 125 mls/hr Lorazepam (Ativan) 0 mg IVPUSH Q1H PRN; Protocol PRN Reason: CIWAA protocol Last Admin: 06/20/16 13:06 Dose: 1 mg Lorazepam (Ativan) 0 mg PO Q1H PRN; Protocol PRN Reason: per CIWAA protocol Metoclopramide HCl (Reglan) 10 mg IV Q8H PRN PRN Reason: Nausea/Vomiting Last Admin: 06/20/16 17:12 Dose: 10 mg Morphine Sulfate (Morphine) 2 mg IVPUSH Q2H PRN PRN Reason: Pain Last Admin: 06/20/16 18:14 Dose: 2 mg Pantoprazole Sodium (Protonix Iv) 40 mg IVPUSH DAILY [facility] Last Admin: 06/21/16 09:36 Dose: 40 mg Potassium Chloride (Klor-Con) 20 meq PO TID [facility] Last Admin: 06/21/16 09:37 Dose: 20 meq Discontinued Medications Alprazolam (Xanax) 0.5 mg PO BID PRN PRN Reason: Anxiety Calcium Acetate (Phoslo) 667 mg PO BIDMEALS [facility] Last Admin: 06/20/16 17:00 Dose: 667 mg Lactated Ringer's (Ringers, Lactated) 1,000 mls @ 999 mls/hr IV .BOLUS [facility] Last Admin: 06/19/16 12:40 Dose: 999 mls/hr Dextrose/Sodium Chloride (Dextrose 5%-Normal Saline) 1,000 mls @ 999 mls/hr IV ASDIRECTED [facility] Last Admin: 06/19/16 14:00 Dose: 999 mls/hr Potassium Chloride 20 meq/ (Premix) 100 mls @ 50 mls/hr IV Q2H [facility] Stop: 06/19/16 17:59 Last Admin: 06/19/16 16:47 Dose: 50 mls/hr Multivitamins/Minerals 10 ml/Thiamine HCl 100 mg/ Folic Acid 1 mg/ Magnesium Sulfate 3 gm/ Sodium Chloride 1,017.2 mls @ 125 mls/hr IV ONETIME ONE Stop: 06/20/16 02:08 Last Admin: 06/19/16 18:58 Dose: 125 mls/hr Potassium Chloride/Sodium Chloride (Normal Saline With 20 Meq Kcl) 1,000 mls @ 125 mls/hr IV Q8H [facility] Last Admin: 06/19/16 16:40 Dose: 125 mls/hr Potassium Chloride/Sodium Chloride (Normal Saline With 20 Meq Kcl) 1,000 mls @ 250 mls/hr IV Q8H [facility] Last Admin: 06/20/16 05:38 Dose: 250 mls/hr Dextrose/Sodium Chloride (Dextrose 5%-1/2 Ns) 1,000 mls @ 125 mls/hr IV ASDIRECTED [facility] Last Admin: 06/21/16 03:25 Dose: 125 mls/hr Potassium Chloride 20 meq/ (Premix) 100 mls @ 50 mls/hr IV Q2H [facility] Stop: 06/20/16 11:59 Last Admin: 06/20/16 11:10 Dose: 50 mls/hr Sodium Phosphate 25 mmole/ (Sodium Chloride) 508.3333 mls @ 63 mls/hr IV ONETIME ONE Stop: 06/20/16 19:04 Last Admin: 06/20/16 11:30 Dose: 63 mls/hr Potassium Chloride 20 meq/ (Premix) 100 mls @ 50 mls/hr IV Q2H [facility] Stop: 06/20/16 20:28 Last Admin: 06/20/16 19:01 Dose: 50 mls/hr Potassium Chloride/Sodium Chloride (Normal Saline With 20 Meq Kcl) 1,000 mls @ 125 mls/hr IV Q8H [facility] Last Admin: 06/21/16 09:37 Dose: 125 mls/hr Lorazepam (Ativan) 1 mg IVPUSH ONETIME ONE Stop: 06/19/16 14:37 Last Admin: 06/19/16 14:52 Dose: 1 mg Lorazepam (Ativan) 2 mg IVPUSH ONETIME ONE Stop: 06/19/16 17:21 Last Admin: 06/19/16 17:33 Dose: 2 mg Morphine Sulfate (Morphine) 1 mg IVPUSH ONETIME ONE Stop: 06/19/16 14:26 Last Admin: 06/19/16 14:45 Dose: 1 mg Morphine Sulfate (Morphine) Confirm Administered Dose 2 mg .ROUTE .STK-MED ONE Stop: 06/19/16 14:37 Last Admin: 06/19/16 14:56 Dose: Not Given Morphine Sulfate (Morphine) 2 mg IVPUSH Q2H PRN PRN Reason: Pain Stop: 06/20/16 00:30 Last Admin: 06/19/16 18:55 Dose: 2 mg Morphine Sulfate (Morphine) 2 mg IVPUSH ONETIME ONE Stop: 06/20/16 00:48 Last Admin: 06/20/16 00:59 Dose: 2 mg Ondansetron HCl (Zofran) 4 mg IV Q4H PRN PRN Reason: Nausea/Vomiting Ondansetron HCl (Zofran) Confirm Administered Dose 4 mg .ROUTE .STK-MED ONE Stop: 06/19/16 13:32 Last Admin: 06/19/16 14:56 Dose: Not Given Pneumococcal Polyvalent Vaccine (Pneumovax 23) 0.5 ml IM .ONCE ONE Stop: 06/19/16 16:15 Potassium Chloride (Klor-Con 10) 20 meq PO DAILY [facility] Potassium Chloride (Klor-Con M20) 40 meq PO DAILY [facility] Last Admin: 06/20/16 16:59 Dose: 40 meq - Exam General: alert, oriented, cooperative Lungs: Clear to auscultation, Normal respiratory effort Cardiovascular: Regular Rate, Regular Rhythm Abdomen: bowel sounds present, soft, no tenderness - Problem List & Annotations (1) Dehydration SNOMED Code(s): 30544895 Code(s): E86.0 - DEHYDRATION Status: Acute Priority: High Current Visit : Yes (2) Vomiting SNOMED Code(s): 457786531 Code(s): R11.10 - VOMITING, UNSPECIFIED Status: Acute Current Visit: Yes Qualifiers: Nausea presence: with nausea - Problem List Review Problem List Initiated/Reviewed/Updated: Yes - My Orders Last 24 Hours: Active Orders 24 hr Category Date Time Status Intake and Output [RC] 06,14,22 Care 06/21/16 08:30 Active Vital Signs [RC] 08,16,00 Care 06/21/16 08:30 Active OT Evaluation and Treatment [CONS] Routine Cons 06/21/16 08:27 Active PT Evaluation and Treatment [CONS] Routine Cons 06/21/16 08:27 Active Clear Liquid Diet [DIET] Diet 06/20/16 Dinner Active COMPREHENSIVE METABOLIC PN,CMP [CHEM] DAILY Lab 06/22/16 12:15 Ordered Acetaminophen [Tylenol] Med 06/20/16 16:46 Active 650 mg PO Q4H PRN Metoclopramide [Reglan] Med 06/20/16 17:06 Active 10 mg IV Q8H PRN Morphine Med 06/20/16 17:08 Active 2 mg IVPUSH Q2H PRN Potassium Chloride [Klor-Con] Med 06/21/16 09:00 Active 20 meq PO TID Sodium Chloride 0.45% with KCl [1/2 NS with 20 mEq KCl] Med 06/21/16 11:00 Active 1,000 ml IV Q8H Medication Orders Acetaminophen (Tylenol) 650 mg PO Q4H PRN PRN Reason: Pain Last Admin: 06/20/16 17:00 Dose: 650 mg Potassium Chloride/Sodium Chloride (1/2 Ns With 20 Meq Kcl) 1,000 mls @ 125 mls /hr IV Q8H [facility] Last Admin: 06/21/16 11:32 Dose: 125 mls/hr Lorazepam (Ativan) 0 mg IVPUSH Q1H PRN; Protocol PRN Reason: [facility] protocol Last Admin: 06/20/16 13:06 Dose: 1 mg Lorazepam (Ativan) 0 mg PO Q1H PRN; Protocol PRN Reason: per CIWAA protocol Metoclopramide HCl (Reglan) 10 mg IV Q8H PRN PRN Reason: Nausea/Vomiting Last Admin: 06/20/16 17:12 Dose: 10 mg Morphine Sulfate (Morphine) 2 mg IVPUSH Q2H PRN PRN Reason: Pain Last Admin: 06/20/16 18:14 Dose: 2 mg Pantoprazole Sodium (Protonix Iv) 40 mg IVPUSH DAILY [facility] Last Admin: 06/21/16 09:36 Dose: 40 mg Admin: 06/20/16 09:09 Dose: 40 mg Admin: 06/19/16 14:29 Dose: 40 mg Potassium Chloride (Klor-Con) 20 meq PO TID [facility] Last Admin: 06/21/16 09:37 Dose: 20 meq - Assessment Assessment (Free Text/Narrative):: still hypoK - Plan Plan (Free Text/Narrative):: will continue to follow
[2016-06-21] MEDS: Morphine 2 MG/ML Syringe IVPUSH PRN ×2 (12:52→18:39)
[2016-06-21] MEDS: Potassium Chloride 20 MEQ Tab.ER PO SCH ×2 (17:56→20:15)
[2016-06-21] MEDS: Acetaminophen 325 MG Tab PO PRN (23:30)
[2016-06-22] MEDS: Sodium Chloride 0.45% with KCl 1,000 ML IV SCH (03:42)
[2016-06-22] MEDS: Morphine 2 MG/ML Syringe IVPUSH PRN ×2 (07:24→23:03)
--- NOTE | 2016-06-22 08:06 | PN ---
DATE SEEN: 06/22/2016 REASON FOR VISIT: Abdominal pain. HISTORY OF PRESENT ILLNESS: This is a 51-year-old female, who complains of generalized weakness. Now, she has pain in the left upper quadrant. She has had hypokalemia, but her potassium has improved. Overnight, she has been kept n.p.o. for possible EGD this morning. Her pain in the left quadrant does not seem to radiate anywhere. It is worse with the cough. REVIEW OF SYSTEMS: All other systems unremarkable except as above. SOCIAL HISTORY: Previous drinker. PHYSICAL EXAMINATION: VITAL SIGNS: Blood pressure is normal. Temperature is 98.3 and pulse is 104. ENT: Negative. CHEST: Clear. ABDOMEN: Soft with tenderness and rebound in the left upper quadrant. Bowel sounds are present. EXTREMITIES: No edema. MENTAL STATUS: Tearful and depressed mood. LABORATORY DATA: Potassium is 3.5, sodium 138, creatinine is 0.04, ALT is 46 and AST is 101. IMPRESSION: 1. Hypokalemia, improved. 2. History of alcohol abuse. 3. Left upper quadrant abdominal pain. 4. Gastroesophageal reflux disease. 5. Anxiety and depression. 6. Weakness possibly due to somatization. PLAN: Dr. Archer is likely to do an EGD today. We will Hep-Lock IV fluids afterwards and advance diet with the hopes of sending her tomorrow or Friday home. /[id number] MARIANA/MANOJ
[2016-06-22] MEDS ORDERED: LORazepam 1 MG Tab STA (08:21)
[2016-06-22] MEDS ORDERED: Propofol 200 MG/20 ML SDV IV ONE (09:00)
[2016-06-22] MEDS ORDERED: Midazolam 1 MG/ML 2 ML SDV IV ONE (09:00)
[2016-06-22] MEDS ORDERED: Lidocaine 2% 100 MG/5 ML Syringe IVPUSH ONE (09:00)
--- NOTE | 2016-06-22 09:28 | PCM.OPNOTE ---
- General Post-Op/Procedure Note Date of Surgery/Procedure: 06/22/16 Operative Procedure(s): egd with bx Findings: esophagitis RORO prep negative for fungus gastritis duodenitis Pre Op Diagnosis: epigastric abd pain Post-Op Diagnosis: esophagitis. gastritis. duodenitis Anesthesia Technique: [facility] [place] Primary Surgeon: Abhay Archer Anesthesia Provider: Dana Toscano Pathology: esophagus path and RORO prep- gastric duodenum Complications: None Condition: Good Free Text/Narrative:: Intake & Output 06/21/16 06/22/16 06/22/16 22:59 06:59 14:59 Intake Total 1316 1271 Output Total 850 1450 Balance 466 -179 see dictation
[2016-06-22] MEDS: Potassium Chloride 20 MEQ Tab.ER PO SCH ×3 (11:43→21:04)
[2016-06-22] MEDS: Pantoprazole 40 MG Vial IVPUSH SCH (11:43)
[2016-06-22] MEDS: Sucralfate Suspension 1 GM/10 ML Cup PO SCH ×3 (12:00→21:04)
--- NOTE | 2016-06-22 13:43 | OR ---
DATE OF OPERATION: 06/22/2016 SURGEON: Abhay Archer MD PROCEDURE PERFORMED: Upper endoscopy with cold forceps biopsy. PREOPERATIVE DIAGNOSIS: Epigastric abdominal pain. POSTOPERATIVE DIAGNOSES: Duodenitis, gastritis, as well as marked esophagitis with greenish exudate involving the lower half of the esophagus. INDICATIONS FOR PROCEDURE: This is a 51-year-old white female, who was admitted with a history of epigastric abdominal pain. She has a history of alcohol abuse as well. She has been unable to keep anything down and notes nausea and vomiting as well. She was offered and accepted an upper endoscopy. DESCRIPTION OF PROCEDURE: After an excellent IV sedation was administered, the bite-block was inserted. The flexible endoscope was passed without difficulty down the patient's esophagus into the stomach. The stomach was insufflated. The scope was passed through the pylorus to the second portion of duodenum and slowly withdrawn. The following findings were noted. In the first portion of the duodenum marked erythema was noted. Biopsies were taken. The stomach demonstrated marked gastritis, especially in the area of the antrum, and biopsies were taken as well. The esophagus demonstrates marked white coating in the distal half two-thirds of the esophagus. RORO prep was obtained, no hyphae were noted, even though did have the appearance of candidal esophagitis. We did take some biopsies of the distal esophagus. There was no evidence of esophageal varices. Stomach was deflated. The scope was removed. The patient tolerated the procedure well and was taken to recovery room in good condition. /[id number] /MODL
[2016-06-22] MEDS: Acetaminophen 325 MG Tab PO PRN ×2 (15:53→21:04)
[2016-06-23] MEDS ORDERED: Pantoprazole 40 MG Tab.CR PO SCH (06:00)
[2016-06-23] MEDS: Sucralfate Suspension 1 GM/10 ML Cup PO SCH ×2 (07:45→13:13)
[2016-06-23] MEDS ORDERED: traMADol 50 MG Tab PO ONE (08:11)
[2016-06-23] MEDS: Pantoprazole 40 MG Vial IVPUSH SCH (08:40)
[2016-06-23] MEDS: Potassium Chloride 20 MEQ Tab.ER PO SCH (08:40)
[2016-06-23] MEDS ORDERED: Sodium Chloride 0.9% 10 ML Syringe FLUSH PRN (08:43)
[2016-06-23 09:23] VITALS: BP 106/74
--- NOTE | 2016-06-23 12:12 | PN ---
DATE SEEN: 06/23/2016 REASON FOR VISIT: Abdominal pain. HISTORY OF PRESENT ILLNESS: This is a 51-year-old female admitted for abdominal pain. She had an EGD yesterday that showed a lot of gastritis. She was put on Carafate. This morning, she feels better. Mild nausea, but ready to go home. She still complains of generalized weakness and admits to some anxiety. REVIEW OF SYSTEMS: Denies any fever, no constipation, no headaches. CURRENT MEDICATIONS: Please see the nurse's notes. PHYSICAL EXAMINATION: VITAL SIGNS: Blood pressure is normal. Temperature is 98.3. ENT: Negative. MENTAL STATUS: Alert. ABDOMEN: Soft and benign. EXTREMITIES: No edema. LABS: Today, the potassium 3.3, sodium is 136. Hemoglobin is 13.8. IMPRESSION: 1. Hypokalemia. 2. Gastroesophageal reflux disease. 3. Alcohol abuse. 4. Generalized weakness. 5. Anxiety disorder. PLAN: My plan is to discharge her home today. I advised her to see Dr. Archer in [address] Gonsales on . /[id number] MARIANA/MANOJ
--- NOTE | 2016-06-23 14:12 | DISCH ---
DISCHARGE DATE: 06/23/2016 REASON FOR ADMISSION: 1. Dehydration. 2. Hypokalemia. 3. Generalized weakness. 4. Alcohol abuse. 5. Gastroesophageal reflux disease. DISCHARGE DIAGNOSES: 1. Dehydration. 2. Hypokalemia. 3. Generalized weakness. 4. Alcohol abuse. 5. Gastroesophageal reflux disease. 6. Gastritis. 7. Anxiety. CONSULTATIONS: Dr. Archer. PROCEDURES: EGD on 06/22/2016. BRIEF HISTORY AND HOSPITAL COURSE: A 51-year-old female, who was admitted for weakness, hypokalemia, and nausea. She was treated with fluid replacement and potassium replacement. She also had an EGD that showed gastritis possibly causing the abdominal pain. She did have an x-ray and an ultrasound that were unremarkable. She was put on Carafate, she was on omeprazole, potassium was replaced, and she was discharged home. The choking sensation that she complained of disappeared. I suspect that a lot of symptoms are anxiety related including the weakness and vomiting. FOLLOW UP: See Dr. Archer in [address] Gonsales on . DISCHARGE MEDICATIONS: Potassium chloride 20 mEq t.i.d., sucralfate 1 g q.i.d., alprazolam 1 mg daily p.r.n., one multivitamin a day, Zantac 150 mg a day. Please note that I spent more than 35 minutes in the discharge of this patient. /[id number] MARIANA/MANOJ
== END 2016-06-23 10:50 | disposition home or self-care (01) | DRG 392 ==
LOC: FB.MS 12:00 → FB.ICU 13:45 → FB.MS 06-21 08:30
PROVIDERS: ADMIT Family Medicine; ATTEND Family Medicine
PROC: 0T9B70Z Drainage of Bladder with Drainage Device, Via Natural or Artificial Opening (ICD-10-PCS; 2016-06-19)
PROC: 0DH67UZ Insertion of Feeding Device into Stomach, Via Natural or Artificial Opening (ICD-10-PCS; 2016-06-19)
PROC: 3E0G76Z Introduction of Nutritional Substance into Upper GI, Via Natural or Artificial Opening (ICD-10-PCS; 2016-06-19)
PROC: HZ2ZZZZ Detoxification Services for Substance Abuse Treatment (ICD-10-PCS; 2016-06-19)
PROC: 0DB98ZX Excision of Duodenum, Via Natural or Artificial Opening Endoscopic, Diagnostic (ICD-10-PCS; principal; 2016-06-22)
PROC: 0DB38ZX Excision of Lower Esophagus, Via Natural or Artificial Opening Endoscopic, Diagnostic (ICD-10-PCS; 2016-06-22)
PROC: 0DB78ZX Excision of Stomach, Pylorus, Via Natural or Artificial Opening Endoscopic, Diagnostic (ICD-10-PCS; 2016-06-22)
DX: K29.60 Other gastritis without bleeding (principal); E46 Unspecified protein-calorie malnutrition; E87.6 Hypokalemia; E86.0 Dehydration; K21.9 Gastro-esophageal reflux disease without esophagitis; F41.9 Anxiety disorder, unspecified; M51.36 Other intervertebral disc degeneration, lumbar region; R47.81 Slurred speech; Z87.19 Personal history of other diseases of the digestive system; R53.81 Other malaise; F10.20 Alcohol dependence, uncomplicated; R11.10 Vomiting, unspecified; R41.82 Altered mental status, unspecified; G62.9 Polyneuropathy, unspecified
CPT/HCPCS: 36415; 71020; 74022; 76700; 80048; 80053; 80074; 81001; 82140; 82150; 82248; 82272; 82607; 82962; 83690; 83735; 84100; 84702; 85025; 85027; 85610; 85730; 86140; 87040; 87086; 87220; 88305; 88312; 88342; 93005; 97165-GO; A9270-GY; C9113; J2060; J2250; J2270; J2704; J2765; J3411; J3475; J3480; J3490; J7040; J7120

== ENCOUNTER 2016-10-25 12:16 | Inpatient (IN) | payer MEDICAID ==
[2016-10-25] MEDS ORDERED: Sodium Chloride 0.9% 1,000 ML IV ONE (13:27)
[2016-10-25] MEDS ORDERED: Dextrose 5%-Lactated Ringers 1,000 ML IV SCH (13:30)
[2016-10-25] MEDS ORDERED: MVI, Adult with Vitamin K 10 ML, Thiamine 100 MG, Folic Acid 1 MG, Magnesium Sulfate 3 ... IV SCH ×5 (14:45)
[2016-10-25] MEDS ORDERED: Magnesium Hydroxide 400 MG/5 ML Susp 30 ML Cup PO PRN (15:49)
[2016-10-25] MEDS ORDERED: Acetaminophen 325 MG Tab PO PRN (15:49)
[2016-10-25] MEDS ORDERED: Sodium Chloride 0.9% 1,000 ML IV SCH (16:15)
[2016-10-25] MEDS: Sodium Chloride 0.9% 1,000 ML IV SCH ×2 (18:00→21:51)
[2016-10-25] MEDS: Sodium Chloride 0.9% 10 ML Syringe FLUSH PRN (18:56)
[2016-10-25] MEDS: Ondansetron 4 MG/2 ML SDV IV PRN (20:13)
[2016-10-25] MEDS: traMADol 50 MG Tab PO PRN (20:42)
[2016-10-25] MEDS: Sucralfate 1 GM Tab PO SCH (20:42)
[2016-10-25] MEDS ORDERED: Potassium Chloride 20 MEQ Tab.ER PO SCH (21:00)
[2016-10-25] MEDS: LORazepam 2 MG/ML MDV IV SCH (21:41)
[2016-10-25] MEDS: Famotidine 10 MG Tab PO SCH (21:53)
[2016-10-26] MEDS: LORazepam 2 MG/ML MDV IV SCH ×2 (01:09→10:15)
[2016-10-26] MEDS: Sodium Chloride 0.9% 1,000 ML IV SCH ×2 (01:44→08:26)
[2016-10-26] MEDS ORDERED: Pantoprazole 40 MG Tab.CR PO SCH (07:30)
[2016-10-26] MEDS: Sucralfate 1 GM Tab PO SCH ×4 (07:35→21:27)
--- NOTE | 2016-10-26 08:50 | PCM.HP ---
H&P History of Present Illness - General Date of Service: 10/25/16 Admit Problem/Dx: Admission Diagnosis/Problem Admission Diagnosis/Problem Confusion and disorientation Source of Information: Patient, Other (ER doctor) History Limitations: Reports: Altered Mental Status - History of Present Illness Initial Comments - Free Text/Narative: This is a 51-year-old female patient with history of chronic alcoholism. Was brought to the ER by her who stated that she been vomiting for several days and felt she was dehydrated. He is not around to get a history. The ER doc states that he agreed with the assessment. When I talk to her she is mumbling and not able to get history. Upper Abdominal Pain Score (Numeric/FACES): 5 - Related Data Allergies/Adverse Reactions: Allergies Allergy/AdvReac Type Severity Reaction Status Date / Time No Known Allergies Allergy Verified 10/25/16 22:06 Home Medications: Home Meds ALPRAZolam [Alprazolam] 0.5 - 1 mg PO BID PRN 10/25/16 [History] Pantoprazole [ProTONIX] 40 mg PO ACBREAKFAST 10/25/16 [History] Potassium Chloride [Klor-Con M20] 20 meq PO TID 10/25/16 [History] Ranitidine [Zantac] 150 mg PO BID 10/25/16 [History] Sucralfate [Carafate] 1 gm PO QIDACANDBED 10/25/16 [History] Past Medical History HEENT History: Reports: Cataract Cardiovascular History: Reports: Other (See Below) Other Cardiovascular History: Pt reports palpitations Gastrointestinal History: Reports: Cholelithiasis, Cirrhosis, Gastritis, GERD Genitourinary History: Reports: UTI, Recurrent [employer] History: Reports: Musculoskeletal History: Reports: Other (See Below) Other Musculoskeletal History: peripheral neuropathy Neurological History: Reports: Neuropathy, Peripheral Psychiatric History: Reports: Addiction, Anxiety, Psych Hospitalization(s) Other Psychiatric History: Hx ETOH abuse Endocrine/Metabolic History: Reports: None Hematologic History: Reports: None Immunologic History: Reports: None Oncologic (Cancer) History: Reports: None Other Dermatologic History: severe goel bite to hands bilat & feet. Has bilat foot drop. - Infectious Disease History Infectious Disease History: Reports: Other (See Below) Other Infectious Disease History: Unknown. - Past Surgical History HEENT Surgical History: Reports: Cataract Surgery, Tonsillectomy Dermatological Surgical History: Reports: Skin Graft Social & Family History - Family History Family Medical History: Noncontributory - Tobacco Use Smoking Status *Q: Unknown Ever Smoked Tobacco Use Comment: Unknown. Patient nadege historian. - Caffeine Use Caffeine Use: Reports: Other Other Caffeine Use: Unknown. Patient nadege historian at this time. Caffeine Use Comment: Does not use caffeine regularly - Alcohol Use Days Per Week of Alcohol Use: 7 Number of Drinks Per Day: 5 Total Drinks Per Week: 35 - Recreational Drug Use Recreational Drug Use: No H&P Review of Systems - Review of Systems: Review Of Systems: Unable To Obtain Exam - Exam Exam: See Below - Vital Signs Vital Signs: Last Vital Signs Temp 97 F 10/26/16 04:00 Pulse 104 H 10/26/16 04:00 Resp 18 10/26/16 04:00 BP 138/90 10/26/16 04:00 Pulse Ox 98 10/26/16 04:00 Weight: 133 lb 11.2 oz - Exam General: Sedated, Lethargic HEENT: TMs Clear. No: Mucosa Moist & [place] (Dry), Rhinitis, Scleral Icterus Neck: Supple, Trachea Midline Lungs: Clear to Auscultation, Normal Respiratory Effort. No: Crackles, Rales, Rhonchi Cardiovascular: Regular Rate, Regular Rhythm, Tachycardia GI/Abdominal Exam: Distended, Tender Back Exam: Normal Inspection, Full Range of Motion. No: Vertebral Tenderness Extremities: Non-Tender, No Pedal Edema Neuro Extensive - Mental Status: No: Alert, Oriented x3, Normal Mood/Affect, Normal Cognition Neuro Extensive - Motor, Sensory, Reflexes: No: Normal Gait - Patient Data Lab Results Last 24 hrs: Laboratory Results - last 24 hr 10/25/16 10/25/16 10/25/16 Range/Units 16:10 18:42 18:50 WBC (4.5-12.0) X10-3/uL RBC (3.23-5.20) x10(6)uL Hgb (11.5-15.5) g/dL Hct (30.0-51.3) % MCV (80-96) fL MCH (27.7-33.6) pg MCHC (32.2-35.4) g/dL RDW (11.5-15.5) % Plt Count (125-369) X10(3)uL MPV (7.4-10.4) fL Neut % (Auto) (46-82) % Lymph % (Auto) (13-37) % [place] % (Auto) (4-12) % Eos % (Auto) (1.0-5.0) % Baso % (Auto) (0-2) % Neut # (Auto) (1.6-8.3) # Lymph # (Auto) (0.6-5.0) # [place] # (Auto) (0.0-1.3) # Eos # (Auto) (0.0-0.8) # Baso # (Auto) (0.0-0.2) # Sodium (135-145) mmol/L Potassium (3.5-5.3) mmol/L Chloride (100-110) mmol/L Carbon Dioxide (23-29) mmol/L BUN (5-20) mg/dL Creatinine (0.6-1.3) mg/dL Est Cr Clr Drug Dosing mL/min Estimated GFR (MDRD) (>60) BUN/Creatinine Ratio (9-20) Glucose (80-116) mg/dL POC Glucose 135 H (80-116) mg/dL Calcium (8.6-10.2) mg/dL Total Bilirubin (0.1-1.3) mg/dL AST (5-27) IU/L ALT (14-26) IU/L Alkaline Phosphatase (56-112) IU/L Total Protein (6.0-8.0) g/dL Albumin (3.5-5.2) g/dL Globulin g/dL Albumin/Globulin Ratio Amylase (28-100) U/L TSH, Ultra Sensitive 0.31 L (0.4-5.5) nlU/mL Urine Color (YELLOW) Urine Appearance (CLEAR) Urine pH (5.0-6.5) Ur Specific [place] (1.010-1.025) Urine Protein (NEGATIVE) mg/dL Urine Glucose (UA) (NEGATIVE) mg/dL Urine Ketones (NEGATIVE) mg/dL Urine Occult Blood (NEGATIVE) Urine Nitrite (NEGATIVE) Urine Bilirubin (NEGATIVE) Urine Urobilinogen (NEGATIVE) mg/dL Ur Leukocyte Esterase (NEGATIVE) Urine RBC (0) Urine WBC (0) Ur Squamous Epith Cells (NS,R,O) Urine Bacteria (NS) Fine Granular Casts (NS) Ethyl Alcohol < 0.01 (<0.01) % 10/25/16 10/26/16 10/26/16 Range/Units 21:46 03:15 06:40 WBC 8.8 (4.5-12.0) X10-3/uL RBC 4.65 (3.23-5.20) x10(6)uL Hgb 15.1 (11.5-15.5) g/dL Hct 44.3 (30.0-51.3) % MCV 95.4 (80-96) fL MCH 32.5 (27.7-33.6) pg MCHC 34.1 (32.2-35.4) g/dL RDW 12.8 (11.5-15.5) % Plt Count 53 L (125-369) X10(3)uL MPV 9.1 (7.4-10.4) fL Neut % (Auto) 86.9 H (46-82) % Lymph % (Auto) 3.3 L (13-37) % [place] % (Auto) 9.3 (4-12) % Eos % (Auto) 0 L (1.0-5.0) % Baso % (Auto) 0 (0-2) % Neut # (Auto) 7.7 (1.6-8.3) # Lymph # (Auto) 0.3 L (0.6-5.0) # [place] # (Auto) 0.8 (0.0-1.3) # Eos # (Auto) 0.0 (0.0-0.8) # Baso # (Auto) 0.0 (0.0-0.2) # Sodium (135-145) mmol/L Potassium (3.5-5.3) mmol/L Chloride (100-110) mmol/L Carbon Dioxide (23-29) mmol/L BUN (5-20) mg/dL Creatinine (0.6-1.3) mg/dL Est Cr Clr Drug Dosing mL/min Estimated GFR (MDRD) (>60) BUN/Creatinine Ratio (9-20) Glucose (80-116) mg/dL POC Glucose 178 H (80-116) mg/dL Calcium (8.6-10.2) mg/dL Total Bilirubin (0.1-1.3) mg/dL AST (5-27) IU/L ALT (14-26) IU/L Alkaline Phosphatase (56-112) IU/L Total Protein (6.0-8.0) g/dL Albumin (3.5-5.2) g/dL Globulin g/dL Albumin/Globulin Ratio Amylase (28-100) U/L TSH, Ultra Sensitive (0.4-5.5) nlU/mL Urine Color Yellow (YELLOW) Urine Appearance Clear (CLEAR) Urine pH 5.0 (5.0-6.5) Ur Specific [place] 1.015 (1.010-1.025) Urine Protein Trace (NEGATIVE) mg/dL Urine Glucose (UA) Normal (NEGATIVE) mg/dL Urine Ketones 150 H (NEGATIVE) mg/dL Urine Occult Blood Moderate H (NEGATIVE) Urine Nitrite Negative (NEGATIVE) Urine Bilirubin Negative (NEGATIVE) Urine Urobilinogen Normal (NEGATIVE) mg/dL Ur Leukocyte Esterase Negative (NEGATIVE) Urine RBC 0-5 (0) Urine WBC 0-5 (0) Ur Squamous Epith Cells Few H (NS,R,O) Urine Bacteria Few H (NS) Fine Granular Casts Occasional H (NS) Ethyl Alcohol (<0.01) % 10/26/16 Range/Units 06:40 WBC (4.5-12.0) X10-3/uL RBC (3.23-5.20) x10(6)uL Hgb (11.5-15.5) g/dL Hct (30.0-51.3) % MCV (80-96) fL MCH (27.7-33.6) pg MCHC (32.2-35.4) g/dL RDW (11.5-15.5) % Plt Count (125-369) X10(3)uL MPV (7.4-10.4) fL Neut % (Auto) (46-82) % Lymph % (Auto) (13-37) % [place] % (Auto) (4-12) % Eos % (Auto) (1.0-5.0) % Baso % (Auto) (0-2) % Neut # (Auto) (1.6-8.3) # Lymph # (Auto) (0.6-5.0) # [place] # (Auto) (0.0-1.3) # Eos # (Auto) (0.0-0.8) # Baso # (Auto) (0.0-0.2) # Sodium 135 (135-145) mmol/L Potassium 2.3 L* D (3.5-5.3) mmol/L Chloride 108 D (100-110) mmol/L Carbon Dioxide 9 L* (23-29) mmol/L BUN 9 (5-20) mg/dL Creatinine 0.7 (0.6-1.3) mg/dL Est Cr Clr Drug Dosing 92.05 mL/min Estimated GFR (MDRD) > 60 (>60) BUN/Creatinine Ratio 12.9 (9-20) Glucose 181 H (80-116) mg/dL POC Glucose (80-116) mg/dL Calcium 8.3 L (8.6-10.2) mg/dL Total Bilirubin 1.6 H (0.1-1.3) mg/dL AST 69 H D (5-27) IU/L ALT 66 H D (14-26) IU/L Alkaline Phosphatase 99 (56-112) IU/L Total Protein 6.8 (6.0-8.0) g/dL Albumin 3.8 (3.5-5.2) g/dL Globulin 3.0 g/dL Albumin/Globulin Ratio 1.3 Amylase 304 H (28-100) U/L TSH, Ultra Sensitive (0.4-5.5) nlU/mL Urine Color (YELLOW) Urine Appearance (CLEAR) Urine pH (5.0-6.5) Ur Specific [place] (1.010-1.025) Urine Protein (NEGATIVE) mg/dL Urine Glucose (UA) (NEGATIVE) mg/dL Urine Ketones (NEGATIVE) mg/dL Urine Occult Blood (NEGATIVE) Urine Nitrite (NEGATIVE) Urine Bilirubin (NEGATIVE) Urine Urobilinogen (NEGATIVE) mg/dL Ur Leukocyte Esterase (NEGATIVE) Urine RBC (0) Urine WBC (0) Ur Squamous Epith Cells (NS,R,O) Urine Bacteria (NS) Fine Granular Casts (NS) Ethyl Alcohol (<0.01) % Result Diagrams: 10/26/16 06:40 10/26/16 06:40 *Q Meaningful Use (ADM) - VTE *Q VTE Criteria *Q: VTE Pharmacological Contraindications *Q: Not Candidate LT Anticoag - Stroke *Q Stroke Criteria *Q: - AMI *Q AMI Criteria *Q: - Problem List (1) Pancreatitis SNOMED Code(s): 44192191 ICD Code: K85.90 - ACUTE PANCREATITIS WITHOUT NECROSIS OR INFECTION, UNSP Status: Acute Current Visit: Yes (2) Acute on chronic alteration in mental status SNOMED Code(s): 430820617 ICD Code: R41.82 - ALTERED MENTAL STATUS, UNSPECIFIED Status: Acute Current Visit: No (3) Dehydration SNOMED Code(s): 03411030 ICD Code: E86.0 - DEHYDRATION Status: Acute Priority: High Current Visit: No (4) Alcohol addiction SNOMED Code(s): 30588983, 244307002 ICD Code: F10.20 - ALCOHOL DEPENDENCE, UNCOMPLICATED Status: Chronic Current Visit: No Qualifiers: Problem List Initiated/Reviewed/Updated: Yes Orders Last 24hrs: Active Orders 24 hr Category Date Time Status Notify Provider [RC] PRN Care 10/25/16 18:23 Active Abdomen w wo Cont [CT] Routine Exams 10/26/16 08:45 Ordered AMMONIA [REF] Stat Lab 10/25/16 18:50 Received LIPASE [REF] Routine Lab 10/25/16 18:50 Received POTASSIUM,K [CHEM] Routine Lab 10/26/16 15:30 Ordered Famotidine [Pepcid] Med 10/25/16 21:00 Active 10 mg PO BID LORazepam [Ativan] Med 10/25/16 20:41 Active 1 mg PO Q1H PRN LORazepam [Ativan] Med 10/25/16 18:30 Active See Protocol IV ASDIRECTED Pantoprazole [ProTONIX] Med 10/27/16 06:00 Active 40 mg PO DAILY@0600 Potassium Chloride [Klor-Con M20] Med 10/26/16 08:45 Ordered 40 meq PO TID Sodium Chloride 0.9% [Normal Saline] 1,000 ml Med 10/25/16 18:17 Active IV ASDIRECTED Sodium Chloride 0.9% [Normal Saline] 1,000 ml Med 10/25/16 18:30 Active IV ASDIRECTED Sodium Chloride 0.9% [Saline Flush] Med 10/25/16 18:52 Active 10 ml FLUSH ASDIRECTED PRN Sucralfate [Carafate] Med 10/25/16 21:00 Active 1 gm PO QIDACANDBED traMADol [Ultram] Med 10/25/16 20:35 Active 50 mg PO Q4H PRN Medication Orders Acetaminophen (Tylenol) 650 mg PO Q4H PRN PRN Reason: Pain (Mild 1-3)/fever Last Admin: 10/25/16 16:56 Dose: 650 mg Famotidine (Pepcid) 10 mg PO BID [facility] Last Admin: 10/25/16 21:53 Dose: Sodium Chloride (Normal Saline) 1,000 mls @ 150 mls/hr IV ASDIRECTED [facility] Last Admin: 10/26/16 08:26 Dose: 150 mls/hr Infusion: 10/26/16 08:25 Dose: 150 mls/hr Admin: 10/26/16 01:44 Dose: 150 mls/hr Sodium Chloride (Normal Saline) 1,000 mls @ 250 mls/hr IV ASDIRECTED [facility] Stop: 10/26/16 20:14 Last Admin: 10/25/16 21:51 Dose: 250 mls/hr Infusion: 10/25/16 21:51 Dose: 250 mls/hr Admin: 10/25/16 18:00 Dose: 250 mls/hr Lorazepam (Ativan) 0 mg IV ASDIRECTED [facility] PRN Reason: Protocol Last Admin: 10/26/16 01:09 Dose: 1 mg Admin: 10/25/16 21:41 Dose: 1 mg Lorazepam (Ativan) 1 mg PO Q1H PRN PRN Reason: Anxiety Magnesium Hydroxide (Milk Of Magnesia) 30 ml PO Q12H PRN PRN Reason: Constipation Ondansetron HCl (Zofran) 4 mg IV Q4H PRN PRN Reason: Nausea/Vomiting Last Admin: 10/25/16 20:13 Dose: 4 mg Pantoprazole Sodium (Protonix) 40 mg PO DAILY@0600 [facility] Sodium Chloride (Saline Flush) 10 ml FLUSH ASDIRECTED PRN PRN Reason: Keep Vein Open Last Admin: 10/25/16 18:56 Dose: 10 ml Sucralfate (Carafate) 1 gm PO QIDACANDBED [facility] Last Admin: 10/26/16 07:35 Dose: 1 gm Admin: 10/25/16 20:42 Dose: 1 gm Tramadol HCl (Ultram) 50 mg PO Q4H PRN PRN Reason: Pain Last Admin: 10/25/16 20:42 Dose: 50 mg Assessment/Plan Comment:: 1. Admit for hydration. 2. Nothing by mouth or clear liquids if she is able to drink. 3. Full code. 4. Continue her regular medicines most are stomach medicines 5. Ativan when necessary for withdrawal. 6. CT abdomen the morning. 7. Repeat all her labs in the morning. 8. Lipase.
--- NOTE | 2016-10-26 08:53 | PCM.PN ---
- General Info Date of Service: 10/26/16 Admission Dx/Problem (Free Text): Patient can answer some questions but mumbles. She states she has some abdominal pain mostly low back pain. She denies fevers, chills or nausea. - Patient Data Vitals - Most Recent: Last Vital Signs Temp 97.5 F 10/26/16 08:00 Pulse 116 H 10/26/16 08:00 Resp 18 10/26/16 08:00 BP 137/96 H 10/26/16 08:00 Pulse Ox 99 10/26/16 08:00 Weight - Most Recent: 133 lb 11.2 oz I&O - Last 24 Hours: Intake & Output 10/25/16 10/26/16 10/26/16 22:59 06:59 14:59 Intake Total 1999 1466 Balance 1999 146 Lab Results Last 24 Hours: Laboratory Results - last 24 hr 10/25/16 10/25/16 10/25/16 Range/Units 16:10 18:42 18:50 WBC (4.5-12.0) X10-3/uL RBC (3.23-5.20) x10(6)uL Hgb (11.5-15.5) g/dL Hct (30.0-51.3) % MCV (80-96) fL MCH (27.7-33.6) pg MCHC (32.2-35.4) g/dL RDW (11.5-15.5) % Plt Count (125-369) X10(3)uL MPV (7.4-10.4) fL Neut % (Auto) (46-82) % Lymph % (Auto) (13-37) % [place] % (Auto) (4-12) % Eos % (Auto) (1.0-5.0) % Baso % (Auto) (0-2) % Neut # (Auto) (1.6-8.3) # Lymph # (Auto) (0.6-5.0) # [place] # (Auto) (0.0-1.3) # Eos # (Auto) (0.0-0.8) # Baso # (Auto) (0.0-0.2) # Sodium (135-145) mmol/L Potassium (3.5-5.3) mmol/L Chloride (100-110) mmol/L Carbon Dioxide (23-29) mmol/L BUN (5-20) mg/dL Creatinine (0.6-1.3) mg/dL Est Cr Clr Drug Dosing mL/min Estimated GFR (MDRD) (>60) BUN/Creatinine Ratio (9-20) Glucose (80-116) mg/dL POC Glucose 135 H (80-116) mg/dL Calcium (8.6-10.2) mg/dL Total Bilirubin (0.1-1.3) mg/dL AST (5-27) IU/L ALT (14-26) IU/L Alkaline Phosphatase (56-112) IU/L Total Protein (6.0-8.0) g/dL Albumin (3.5-5.2) g/dL Globulin g/dL Albumin/Globulin Ratio Amylase (28-100) U/L TSH, Ultra Sensitive 0.31 L (0.4-5.5) nlU/mL Urine Color (YELLOW) Urine Appearance (CLEAR) Urine pH (5.0-6.5) Ur Specific [place] (1.010-1.025) Urine Protein (NEGATIVE) mg/dL Urine Glucose (UA) (NEGATIVE) mg/dL Urine Ketones (NEGATIVE) mg/dL Urine Occult Blood (NEGATIVE) Urine Nitrite (NEGATIVE) Urine Bilirubin (NEGATIVE) Urine Urobilinogen (NEGATIVE) mg/dL Ur Leukocyte Esterase (NEGATIVE) Urine RBC (0) Urine WBC (0) Ur Squamous Epith Cells (NS,R,O) Urine Bacteria (NS) Fine Granular Casts (NS) Ethyl Alcohol < 0.01 (<0.01) % 10/25/16 10/26/16 10/26/16 Range/Units 21:46 03:15 06:40 WBC 8.8 (4.5-12.0) X10-3/uL RBC 4.65 (3.23-5.20) x10(6)uL Hgb 15.1 (11.5-15.5) g/dL Hct 44.3 (30.0-51.3) % MCV 95.4 (80-96) fL MCH 32.5 (27.7-33.6) pg MCHC 34.1 (32.2-35.4) g/dL RDW 12.8 (11.5-15.5) % Plt Count 53 L (125-369) X10(3)uL MPV 9.1 (7.4-10.4) fL Neut % (Auto) 86.9 H (46-82) % Lymph % (Auto) 3.3 L (13-37) % [place] % (Auto) 9.3 (4-12) % Eos % (Auto) 0 L (1.0-5.0) % Baso % (Auto) 0 (0-2) % Neut # (Auto) 7.7 (1.6-8.3) # Lymph # (Auto) 0.3 L (0.6-5.0) # [facility] # (Auto) 0.8 (0.0-1.3) # Eos # (Auto) 0.0 (0.0-0.8) # Baso # (Auto) 0.0 (0.0-0.2) # Sodium (135-145) mmol/L Potassium (3.5-5.3) mmol/L Chloride (100-110) mmol/L Carbon Dioxide (23-29) mmol/L BUN (5-20) mg/dL Creatinine (0.6-1.3) mg/dL Est Cr Clr Drug Dosing mL/min Estimated GFR (MDRD) (>60) BUN/Creatinine Ratio (9-20) Glucose (80-116) mg/dL POC Glucose 178 H (80-116) mg/dL Calcium (8.6-10.2) mg/dL Total Bilirubin (0.1-1.3) mg/dL AST (5-27) IU/L ALT (14-26) IU/L Alkaline Phosphatase (56-112) IU/L Total Protein (6.0-8.0) g/dL Albumin (3.5-5.2) g/dL Globulin g/dL Albumin/Globulin Ratio Amylase (28-100) U/L TSH, Ultra Sensitive (0.4-5.5) nlU/mL Urine Color Yellow (YELLOW) Urine Appearance Clear (CLEAR) Urine pH 5.0 (5.0-6.5) Ur Specific [place] 1.015 (1.010-1.025) Urine Protein Trace (NEGATIVE) mg/dL Urine Glucose (UA) Normal (NEGATIVE) mg/dL Urine Ketones 150 H (NEGATIVE) mg/dL Urine Occult Blood Moderate H (NEGATIVE) Urine Nitrite Negative (NEGATIVE) Urine Bilirubin Negative (NEGATIVE) Urine Urobilinogen Normal (NEGATIVE) mg/dL Ur Leukocyte Esterase Negative (NEGATIVE) Urine RBC 0-5 (0) Urine WBC 0-5 (0) Ur Squamous Epith Cells Few H (NS,R,O) Urine Bacteria Few H (NS) Fine Granular Casts Occasional H (NS) Ethyl Alcohol (<0.01) % 10/26/16 Range/Units 06:40 WBC (4.5-12.0) X10-3/uL RBC (3.23-5.20) x10(6)uL Hgb (11.5-15.5) g/dL Hct (30.0-51.3) % MCV (80-96) fL MCH (27.7-33.6) pg MCHC (32.2-35.4) g/dL RDW (11.5-15.5) % Plt Count (125-369) X10(3)uL MPV (7.4-10.4) fL Neut % (Auto) (46-82) % Lymph % (Auto) (13-37) % [place] % (Auto) (4-12) % Eos % (Auto) (1.0-5.0) % Baso % (Auto) (0-2) % Neut # (Auto) (1.6-8.3) # Lymph # (Auto) (0.6-5.0) # [place] # (Auto) (0.0-1.3) # Eos # (Auto) (0.0-0.8) # Baso # (Auto) (0.0-0.2) # Sodium 135 (135-145) mmol/L Potassium 2.3 L* D (3.5-5.3) mmol/L Chloride 108 D (100-110) mmol/L Carbon Dioxide 9 L* (23-29) mmol/L BUN 9 (5-20) mg/dL Creatinine 0.7 (0.6-1.3) mg/dL Est Cr Clr Drug Dosing 92.05 mL/min Estimated GFR (MDRD) > 60 (>60) BUN/Creatinine Ratio 12.9 (9-20) Glucose 181 H (80-116) mg/dL POC Glucose (80-116) mg/dL Calcium 8.3 L (8.6-10.2) mg/dL Total Bilirubin 1.6 H (0.1-1.3) mg/dL AST 69 H D (5-27) IU/L ALT 66 H D (14-26) IU/L Alkaline Phosphatase 99 (56-112) IU/L Total Protein 6.8 (6.0-8.0) g/dL Albumin 3.8 (3.5-5.2) g/dL Globulin 3.0 g/dL Albumin/Globulin Ratio 1.3 Amylase 304 H (28-100) U/L TSH, Ultra Sensitive (0.4-5.5) nlU/mL Urine Color (YELLOW) Urine Appearance (CLEAR) Urine pH (5.0-6.5) Ur Specific [place] (1.010-1.025) Urine Protein (NEGATIVE) mg/dL Urine Glucose (UA) (NEGATIVE) mg/dL Urine Ketones (NEGATIVE) mg/dL Urine Occult Blood (NEGATIVE) Urine Nitrite (NEGATIVE) Urine Bilirubin (NEGATIVE) Urine Urobilinogen (NEGATIVE) mg/dL Ur Leukocyte Esterase (NEGATIVE) Urine RBC (0) Urine WBC (0) Ur Squamous Epith Cells (NS,R,O) Urine Bacteria (NS) Fine Granular Casts (NS) Ethyl Alcohol (<0.01) % Med Orders - Current: Current Medications Acetaminophen (Tylenol) 650 mg PO Q4H PRN PRN Reason: Pain (Mild 1-3)/fever Last Admin: 10/25/16 16:56 Dose: 650 mg Famotidine (Pepcid) 10 mg PO BID [facility] Last Admin: 10/25/16 21:53 Dose: Not Given Sodium Chloride (Normal Saline) 1,000 mls @ 150 mls/hr IV ASDIRECTED [facility] Last Admin: 10/26/16 08:26 Dose: 150 mls/hr Sodium Chloride (Normal Saline) 1,000 mls @ 250 mls/hr IV ASDIRECTED [facility] Stop: 10/26/16 20:14 Last Admin: 10/25/16 21:51 Dose: 250 mls/hr Lorazepam (Ativan) 0 mg IV ASDIRECTED [facility] PRN Reason: Protocol Last Admin: 10/26/16 01:09 Dose: 1 mg Lorazepam (Ativan) 1 mg PO Q1H PRN PRN Reason: Anxiety Magnesium Hydroxide (Milk Of Magnesia) 30 ml PO Q12H PRN PRN Reason: Constipation Ondansetron HCl (Zofran) 4 mg IV Q4H PRN PRN Reason: Nausea/Vomiting Last Admin: 10/25/16 20:13 Dose: 4 mg Pantoprazole Sodium (Protonix) 40 mg PO DAILY@0600 [facility] Potassium Chloride (Klor-Con M20) 40 meq PO TID [facility] Sodium Chloride (Saline Flush) 10 ml FLUSH ASDIRECTED PRN PRN Reason: Keep Vein Open Last Admin: 10/25/16 18:56 Dose: 10 ml Sucralfate (Carafate) 1 gm PO QIDACANDBED [facility] Last Admin: 10/26/16 07:35 Dose: 1 gm Tramadol HCl (Ultram) 50 mg PO Q4H PRN PRN Reason: Pain Last Admin: 10/25/16 20:42 Dose: 50 mg Discontinued Medications Dextrose/Lactated Ringer's (Dextrose 5%-Lactated Ringers) 1,000 mls @ 999 mls/ hr IV ASDIRECTED [facility] Sodium Chloride (Normal Saline) 1,000 mls @ 999 mls/hr IV .BOLUS ONE Stop: 10/25/16 14:27 Last Admin: 10/25/16 13:45 Dose: 999 mls/hr Multivitamins/Minerals 10 ml/Thiamine HCl 100 mg/ Folic Acid 1 mg/ Magnesium Sulfate 3 gm/ Sodium Chloride 1,017.2 mls @ 400 mls/hr IV ASDIRECTED [facility] Last Admin: 10/25/16 15:13 Dose: 400 mls/hr Sodium Chloride (Normal Saline) 1,000 mls @ 150 mls/hr IV ASDIRECTED [facility] Last Infusion: 10/25/16 18:19 Dose: 250 mls/hr Pantoprazole Sodium (Protonix) 40 mg PO ACBREAKFAST [facility] Last Admin: 10/26/16 07:35 Dose: 40 mg Potassium Chloride (Klor-Con M20) 20 meq PO TID [facility] Last Admin: 10/25/16 20:42 Dose: 20 meq - Exam General: Cooperative, Mild Distress, Sedated Lungs: Clear to Auscultation, Normal Respiratory Effort Cardiovascular: Regular Rate, Regular Rhythm, No Murmurs GI/Abdominal Exam: Distended (Mild), Tender. No: Guarding, Rigid Back Exam: Normal Inspection, Full Range of Motion. No: Vertebral Tenderness Extremities: No Pedal Edema - Problem List & Annotations (1) Pancreatitis SNOMED Code(s): 84093888 Code(s): K85.90 - ACUTE PANCREATITIS WITHOUT NECROSIS OR INFECTION, UNSP Status: Acute Current Visit: Yes (2) Acute on chronic alteration in mental status SNOMED Code(s): 005603801 Code(s): R41.82 - ALTERED MENTAL STATUS, UNSPECIFIED Status: Acute Current Visit: No (3) Dehydration SNOMED Code(s): 31440851 Code(s): E86.0 - DEHYDRATION Status: Acute Priority: High Current Visit : No (4) Alcohol addiction SNOMED Code(s): 41817892, 229118640 Code(s): F10.20 - ALCOHOL DEPENDENCE, UNCOMPLICATED Status: Chronic Current Visit: No Qualifiers: (5) Hypokalemia SNOMED Code(s): 07962002 Code(s): E87.6 - HYPOKALEMIA Status: Acute Current Visit: No - Problem List Review Problem List Initiated/Reviewed/Updated: Yes - My Orders Last 24 Hours: My Active Orders 10/25/16 18:17 Sodium Chloride 0.9% [Normal Saline] 1,000 ml IV ASDIRECTED 10/25/16 18:23 Notify Provider [RC] PRN 10/25/16 18:30 LORazepam [Ativan] See Protocol IV ASDIRECTED Sodium Chloride 0.9% [Normal Saline] 1,000 ml IV ASDIRECTED 10/25/16 18:50 LIPASE [REF] Routine 10/25/16 18:52 Sodium Chloride 0.9% [Saline Flush] 10 ml FLUSH ASDIRECTED PRN 10/25/16 20:35 traMADol [Ultram] 50 mg PO Q4H PRN 10/25/16 20:41 LORazepam [Ativan] 1 mg PO Q1H PRN 10/25/16 21:00 Famotidine [Pepcid] 10 mg PO BID Sucralfate [Carafate] 1 gm PO QIDACANDBED 10/26/16 08:45 Abdomen w wo Cont [CT] Routine Potassium Chloride [Klor-Con M20] 40 meq PO TID 10/26/16 15:30 POTASSIUM,K [CHEM] Routine 10/27/16 06:00 Pantoprazole [ProTONIX] 40 mg PO DAILY@0600 - Plan Plan:: 1. Increased potassium to 40 KCl 3 times a day by mouth 2. Add potassium to IV fluids. 3. Potassium check at 3:30 PM. 5. Continue clear liquids. 6. Waiting for lipase and ammonia level. 7. Continue to watch for withdrawal. 8. CT abdomen today for pancreatitis
[2016-10-26] MEDS ORDERED: Potassium Chloride 20 MEQ Tab.ER PO ONE (09:00)
[2016-10-26] MEDS: NS + KCl 20mEq/L 1,000 ML IV SCH ×3 (09:17→23:58)
[2016-10-26] MEDS: Ondansetron 4 MG/2 ML SDV IV PRN (09:30)
[2016-10-26] MEDS: Famotidine 10 MG Tab PO SCH ×2 (09:34→21:28)
[2016-10-26] MEDS ORDERED: Iopamidol 755 Mg/ML 75 ML Bottle IV ONE (10:15)
[2016-10-26] MEDS: Sodium Chloride 0.9% 10 ML Syringe FLUSH PRN (10:21)
[2016-10-26] MEDS: Potassium Chloride 20 MEQ Tab.ER PO SCH ×2 (13:24→21:28)
[2016-10-26] MEDS: Multivitamin Tab PO SCH (19:18)
[2016-10-26] MEDS: Folic Acid 1 MG Tab PO SCH (19:18)
[2016-10-26] MEDS: LORazepam 1 MG Tab PO PRN (21:32)
--- NOTE | 2016-10-26 21:32 | CONS ---
DATE OF CONSULTATION: 10/26/2016 PERTINENT HISTORY: This 51-year-old female was seen in consultation from Dr. Luna for evaluation of abdominal pain, dehydration, and pancreatitis. She was admitted to the hospital on 10/25/2016, through the emergency room. She was found to be dehydrated and hypokalemic. She has a history of alcohol abuse. She has been admitted with rehydration and given vitamins and thiamin and is more alert and sitting up in the chair today. At home, she was nauseous and vomiting, but this has also improved. Her amylase was found to be elevated. Her white blood cell count is normal. She has been afebrile. She underwent a CT scan of the abdomen today which shows changes to her pancreas concerning for possible necrotizing pancreatitis. Cholelithiasis is present which has been present for several years on prior ultrasounds. There was also some ascites around the liver. No air or air in the pancreas is seen. PHYSICAL EXAMINATION: GENERAL: A lady sitting in a chair who appears to be somewhat confused. She is not orientated to person, place, or time. ABDOMEN: Her abdomen is soft and flat. She does grimace and appears to have fairly diffuse tenderness, but no guarding. I do not feel any masses or hernias. ASSESSMENT: 1. Dehydration, secondary to nausea and vomiting. 2. Hypokalemia. 3. Pancreatitis. 4. History of alcohol abuse. PLAN: Findings were reviewed with the patient and her . At this point, I feel conservative measures are appropriate. We will try to advance her diet as tolerated. There are no surgical issues at this time. No antibiotics are necessary. I will continue to follow while hospitalized. Forty minutes were spent with the patient and in reviewing her records. /[id number] CASSIDY/MANOJ PASTRANA
[2016-10-27] MEDS: Pantoprazole 40 MG Tab.CR PO SCH (05:04)
[2016-10-27] MEDS: LORazepam 1 MG Tab PO PRN (05:04)
[2016-10-27] MEDS: NS + KCl 20mEq/L 1,000 ML IV SCH ×2 (08:03→16:03)
[2016-10-27] MEDS: Multivitamin Tab PO SCH (08:08)
[2016-10-27] MEDS: Thiamine 200 MG/2 ML MDV IM SCH (08:08)
[2016-10-27] MEDS: Folic Acid 1 MG Tab PO SCH (08:08)
[2016-10-27] MEDS: Sucralfate 1 GM Tab PO SCH ×4 (08:09→20:51)
[2016-10-27] MEDS: Famotidine 10 MG Tab PO SCH ×2 (08:09→20:50)
[2016-10-27] MEDS: Potassium Chloride 20 MEQ Tab.ER PO SCH ×3 (08:09→20:51)
--- NOTE | 2016-10-27 10:26 | PCM.PN ---
- General Info Date of Service: 10/27/16 Admission Dx/Problem (Free Text): Patient states that she has a cough illness been there for quite some time. She can actually confers with me better today. She's had some low back pain she denies any falls or injuries. She states she doesn't have any abdominal pain. But she just woke up. She is afraid if she eats solid food she'll get nauseated and vomit. She states she is moving her bowels. - Patient Data Vitals - Most Recent: Last Vital Signs Temp 98.7 F 10/27/16 00:00 Pulse 120 H 10/27/16 08:00 Resp 18 10/27/16 08:00 BP 104/67 10/27/16 08:00 Pulse Ox 97 10/27/16 08:00 Weight - Most Recent: 134 lb 11.2 oz I&O - Last 24 Hours: Intake & Output 10/26/16 10/27/16 10/27/16 22:59 06:59 14:59 Intake Total 1300 952 Output Total 350 Balance 950 952 Lab Results Last 24 Hours: Laboratory Results - last 24 hr 10/26/16 10/26/16 10/26/16 Range/Units 15:40 15:45 15:45 WBC (4.5-12.0) X10-3/uL RBC (3.23-5.20) x10(6)uL Hgb (11.5-15.5) g/dL Hct (30.0-51.3) % MCV (80-96) fL MCH (27.7-33.6) pg MCHC (32.2-35.4) g/dL RDW (11.5-15.5) % Plt Count (125-369) X10(3)uL MPV (7.4-10.4) fL Add Manual Diff Neutrophils % (Manual) (46-82) % Band Neutrophils % (0-6) % Lymphocytes % (Manual) (13-37) % Monocytes % (Manual) (4-12) % Sodium 134 L (135-145) mmol/L Potassium Cancelled 2.1 L* Chloride 110 (100-110) mmol/L Carbon Dioxide 10 L* (23-29) mmol/L BUN 6 (5-20) mg/dL Creatinine 0.7 (0.6-1.3) mg/dL Est Cr Clr Drug Dosing 92.05 mL/min Estimated GFR (MDRD) > 60 (>60) BUN/Creatinine Ratio 8.6 L (9-20) Glucose 248 H (80-116) mg/dL POC Glucose (80-116) mg/dL Calcium 8.2 L (8.6-10.2) mg/dL Total Bilirubin 1.8 H (0.1-1.3) mg/dL AST 71 H (5-27) IU/L ALT 60 H (14-26) IU/L Alkaline Phosphatase 86 (56-112) IU/L Ammonia 16 Total Protein 6.4 (6.0-8.0) g/dL Albumin 3.4 L (3.5-5.2) g/dL Globulin 3.0 g/dL Albumin/Globulin Ratio 1.1 Amylase 236 H (28-100) U/L 10/26/16 10/26/16 10/27/16 Range/Units 17:32 22:31 06:30 WBC 9.4 (4.5-12.0) X10-3/uL RBC 3.97 (3.23-5.20) x10(6)uL Hgb 13.1 (11.5-15.5) g/dL Hct 37.4 (30.0-51.3) % MCV 94.3 (80-96) fL MCH 33.1 (27.7-33.6) pg MCHC 35.1 (32.2-35.4) g/dL RDW 12.9 (11.5-15.5) % Plt Count 55 L (125-369) X10(3)uL MPV 9.5 (7.4-10.4) fL Add Manual Diff Yes Neutrophils % (Manual) 83 H (46-82) % Band Neutrophils % 11 H (0-6) % Lymphocytes % (Manual) 3 L (13-37) % Monocytes % (Manual) 3 L (4-12) % Sodium (135-145) mmol/L Potassium Chloride (100-110) mmol/L Carbon Dioxide (23-29) mmol/L BUN (5-20) mg/dL Creatinine (0.6-1.3) mg/dL Est Cr Clr Drug Dosing mL/min Estimated GFR (MDRD) (>60) BUN/Creatinine Ratio (9-20) Glucose (80-116) mg/dL POC Glucose 246 H 267 H (80-116) mg/dL Calcium (8.6-10.2) mg/dL Total Bilirubin (0.1-1.3) mg/dL AST (5-27) IU/L ALT (14-26) IU/L Alkaline Phosphatase (56-112) IU/L Ammonia Total Protein (6.0-8.0) g/dL Albumin (3.5-5.2) g/dL Globulin g/dL Albumin/Globulin Ratio Amylase (28-100) U/L 10/27/16 10/27/16 10/27/16 Range/Units 06:48 06:50 06:50 WBC (4.5-12.0) X10-3/uL RBC (3.23-5.20) x10(6)uL Hgb (11.5-15.5) g/dL Hct (30.0-51.3) % MCV (80-96) fL MCH (27.7-33.6) pg MCHC (32.2-35.4) g/dL RDW (11.5-15.5) % Plt Count (125-369) X10(3)uL MPV (7.4-10.4) fL Add Manual Diff Neutrophils % (Manual) (46-82) % Band Neutrophils % (0-6) % Lymphocytes % (Manual) (13-37) % Monocytes % (Manual) (4-12) % Sodium 139 (135-145) mmol/L Potassium 2.4 L* Chloride 113 H (100-110) mmol/L Carbon Dioxide 16 L (23-29) mmol/L BUN < 5 L (5-20) mg/dL Creatinine 0.5 L (0.6-1.3) mg/dL Est Cr Clr Drug Dosing 129.83 mL/min Estimated GFR (MDRD) > 60 (>60) BUN/Creatinine Ratio 10.0 (9-20) Glucose 178 H (80-116) mg/dL POC Glucose 157 H D (80-116) mg/dL Calcium 8.5 L (8.6-10.2) mg/dL Total Bilirubin 1.8 H (0.1-1.3) mg/dL AST 66 H (5-27) IU/L ALT 54 H (14-26) IU/L Alkaline Phosphatase 83 (56-112) IU/L Ammonia Total Protein 5.8 L (6.0-8.0) g/dL Albumin 3.0 L (3.5-5.2) g/dL Globulin 2.8 g/dL Albumin/Globulin Ratio 1.1 Amylase 130 H (28-100) U/L Med Orders - Current: Current Medications Acetaminophen (Tylenol) 650 mg PO Q4H PRN PRN Reason: Pain (Mild 1-3)/fever Last Admin: 10/25/16 16:56 Dose: 650 mg Famotidine (Pepcid) [address] [facility] Last Admin: 10/27/16 08:09 Dose: 10 mg Folic Acid (Folic Acid) [address] [facility] Last Admin: 10/27/16 08:08 Dose: 1 mg Potassium Chloride/Sodium Chloride (Normal Saline With 20 Meq Kcl) 1,000 mls @ 125 mls/hr IV Q7H [facility] Last Admin: 10/27/16 08:03 Dose: 125 mls/hr Lorazepam (Ativan) [address] [facility] PRN Reason: Protocol Last Admin: 10/26/16 10:15 Dose: 1 mg Lorazepam (Ativan) 1 mg PO Q1H PRN PRN Reason: Anxiety Last Admin: 10/27/16 05:04 Dose: 1 mg Magnesium Hydroxide (Milk Of Magnesia) 30 ml PO Q12H PRN PRN Reason: Constipation Multivitamins/Minerals/Vitamin C (Tab-A-Shelby) [address] [facility] Last Admin: 10/27/16 08:08 Dose: 1 tab Ondansetron HCl (Zofran) 4 mg IV Q4H PRN PRN Reason: Nausea/Vomiting Last Admin: 10/26/16 09:30 Dose: 4 mg Pantoprazole Sodium (Protonix) 40 mg PO DAILY@0600 [facility] Last Admin: 10/27/16 05:04 Dose: 40 mg Potassium Chloride (Klor-Con M20) [address] [facility] Last Admin: 10/27/16 08:09 Dose: 40 meq Sodium Chloride (Saline Flush) 10 ml FLUSH ASDIRECTED PRN PRN Reason: Keep Vein Open Last Admin: 10/26/16 10:21 Dose: 10 ml Sucralfate (Carafate) [address] [facility] Last Admin: 10/27/16 08:09 Dose: 1 gm Thiamine HCl (Vitamin B-1) [address] [facility] Last Admin: 10/27/16 08:08 Dose: 100 mg Tramadol HCl (Ultram) 50 mg PO Q4H PRN PRN Reason: Pain Last Admin: 10/25/16 20:42 Dose: 50 mg Discontinued Medications Dextrose/Lactated Ringer's (Dextrose 5%-Lactated Ringers) 1,000 mls @ 999 mls/ hr IV ASDIRECTED [facility] Sodium Chloride (Normal Saline) 1,000 mls @ 999 mls/hr IV .BOLUS ONE Stop: 10/25/16 14:27 Last Admin: 10/25/16 13:45 Dose: 999 mls/hr Multivitamins/Minerals 10 ml/Thiamine HCl 100 mg/ Folic Acid 1 mg/ Magnesium Sulfate 3 gm/ Sodium Chloride 1,017.2 mls @ 400 mls/hr IV ASDIRECTED [facility] Last Admin: 10/25/16 15:13 Dose: 400 mls/hr Sodium Chloride (Normal Saline) 1,000 mls @ 150 mls/hr IV ASDIRECTED [facility] Last Infusion: 10/25/16 18:19 Dose: 250 mls/hr Sodium Chloride (Normal Saline) 1,000 mls @ 150 mls/hr IV ASDIRECTED [facility] Last Admin: 10/26/16 08:26 Dose: 150 mls/hr Sodium Chloride (Normal Saline) 1,000 mls @ 250 mls/hr IV ASDIRECTED [facility] Stop: 10/26/16 20:14 Last Admin: 10/25/16 21:51 Dose: 250 mls/hr Iopamidol (Isovue-370 (76%)) 75 ml IV ONETIME ONE Stop: 10/26/16 10:16 Last Admin: 10/26/16 10:40 Dose: 75 ml Pantoprazole Sodium (Protonix) [address] [facility] Last Admin: 10/26/16 07:35 Dose: 40 mg Potassium Chloride (Klor-Con M20) [address] [facility] Last Admin: 10/25/16 20:42 Dose: 20 meq Potassium Chloride (Klor-Con M20) 20 meq PO ONETIME ONE Stop: 10/26/16 09:01 Last Admin: 10/26/16 09:30 Dose: 20 meq - Exam General: Alert, Oriented, Cooperative, Lethargic Lungs: Clear to Auscultation, Normal Respiratory Effort Cardiovascular: Regular Rate, Regular Rhythm, Tachycardia GI/Abdominal Exam: Normal Bowel Sounds, Non-Tender, No Distention. No: Distended, Guarding, Rigid, Rebound Extremities: No Pedal Edema Psy/Mental Status: Alert (But somewhat groggy) - Problem List & Annotations (1) Pancreatitis SNOMED Code(s): 12018704 Code(s): K85.90 - ACUTE PANCREATITIS WITHOUT NECROSIS OR INFECTION, UNSP Status: Acute Current Visit: Yes (2) Acute on chronic alteration in mental status SNOMED Code(s): 762471701 Code(s): R41.82 - ALTERED MENTAL STATUS, UNSPECIFIED Status: Acute Current Visit: No (3) Dehydration SNOMED Code(s): 98603596 Code(s): E86.0 - DEHYDRATION Status: Acute Priority: High Current Visit : No (4) Alcohol addiction SNOMED Code(s): 31528708, 429439597 Code(s): F10.20 - ALCOHOL DEPENDENCE, UNCOMPLICATED Status: Chronic Current Visit: No Qualifiers: (5) Hypokalemia SNOMED Code(s): 19396174 Code(s): E87.6 - HYPOKALEMIA Status: Acute Current Visit: No (6) Sinus tachycardia SNOMED Code(s): 24321206 Code(s): R00.0 - TACHYCARDIA, UNSPECIFIED Status: Acute Current Visit: Yes - Problem List Review Problem List Initiated/Reviewed/Updated: Yes - My Orders Last 24 Hours: My Active Orders 10/26/16 10:32 Abdomen w Cont [CT] Routine 10/26/16 14:37 Consult to Physician [CONS] Routine 10/26/16 16:45 Folic Acid 1 mg PO DAILY 10/26/16 16:58 Telemetry Monitoring [Cardiac Monitoring] [RC] 08,16,00 10/26/16 17:00 Multivitamins [Tab-A-Shelby] 1 tab PO DAILY 10/26/16 20:06 Notify Provider [RC] PRN 10/27/16 06:00 Pantoprazole [ProTONIX] 40 mg PO DAILY@0600 10/27/16 09:00 Thiamine [Vitamin B-1] 100 mg IM DAILY 10/27/16 10:30 Levofloxacin [Levaquin] 500 mg PO Q24H Metoprolol Tartrate [Lopressor] 12.5 mg PO Q12HR 10/27/16 15:30 POTASSIUM,K [CHEM] Routine - Plan Plan:: 1. Recheck potassium at 3:30 this afternoon. 2. Continue by mouth and IV potassium. 3. Patient has a cough. Chest x-ray looked normal to me. Start Levaquin 500 milligrams a day. 4. She is having sinus tachycardia although she's hydrated and doesn't appear that ill. She is improving. Start metoprolol 12.5 mg by mouth twice a day 5. Advance diet as tolerated. 6. Recheck CBC, Chem-12 and amylase in the a.m.
[2016-10-27] MEDS: Metoprolol Tartrate 25 MG Tab PO SCH ×2 (10:58→20:30)
[2016-10-27] MEDS: Levofloxacin 500 MG Tab PO SCH (10:58)
[2016-10-28] MEDS: NS + KCl 20mEq/L 1,000 ML IV SCH ×2 (00:06→08:15)
[2016-10-28] MEDS: Pantoprazole 40 MG Tab.CR PO SCH (05:49)
[2016-10-28] MEDS: Sucralfate 1 GM Tab PO SCH ×3 (07:38→18:04)
--- NOTE | 2016-10-28 07:42 | CR ---
INDICATION: Question aspiration, question infection. CHEST: A single AP upright view of the chest 10/25/2016 was compared with 06/19 and 05/02/2016, again revealing no definite active infiltrate or effusion with the heart, mediastinum, and bony thorax essentially unremarkable, except to note a very minimal dextroconvex scoliosis of the upper middle thoracic spine. IMPRESSION: No acute process. MTDD
--- NOTE | 2016-10-28 07:50 | CT ---
INDICATION: Dysphoric slurred speech. CT HEAD: Serial contiguous 2.5 and 5 mm sections were obtained through the brain without contrast and then repeated due to motion. Study is obtained 10/25 and is compared with 06/30/2013. Total exam DLP = 1898.72 mGy-cm. Calcifications are noted in the left vertebral and minimally in the internal carotid arteries. Frontal and temporal cortical atrophy is noted with a lesser degree of parietal atrophy. No shift of midline structures is noted. Ventricles are slightly prominent for age, suggesting a mild degree of central atrophy additionally. No focal areas of abnormal density were identified. No bleeding site or hematoma was seen. No cranial abnormality was noted. Paranasal sinuses and mastoid air cells appear to be well aerated. IMPRESSION: 1. Frontal, temporal, and to a slightly lesser extent parietal cortical atrophy is suggested. 2. Minimal central atrophy is suggested. 3. Arterial calcifications are noted. Report was called to Dr. Meier at 1537 hours on 10/25/2016. [facility]
[2016-10-28] MEDS: Famotidine 10 MG Tab PO SCH (08:16)
[2016-10-28] MEDS: Potassium Chloride 20 MEQ Tab.ER PO SCH ×2 (08:17→14:52)
[2016-10-28] MEDS: Ondansetron 4 MG/2 ML SDV IV PRN (08:28)
--- NOTE | 2016-10-28 09:16 | ER ---
DATE SEEN: 10/25/2016 Patient seen at 1255 hours. CHIEF COMPLAINT: This 51-year-old was seen at 1255 hours. She is "very tired," has slurred speech, and has not eaten very much for the last 2 days. Vomited yesterday morning and the patient does not feed herself, requires her to manage to help feed her. Water intake has been decreased and her urine is more concentrated, it is darker. In the past, she has had history of low potassium from excessive alcoholism. She has been to her for 18 years. At one time, she was 287 pounds, presently much less than that. On 06/23/2016, had an EGD with Dr. Archer. It demonstrated duodenal erythema and gastritis. She also had white coating in the distal esophagus, did not have hyphae, was not Rachelle fungus, but etiology is indeterminate. Biopsies were taken. Pathology reports are not on the chart. The patient complains of loss of sensation in the lower extremities. She "is unable to walk". She has not been ambulatory. She is more or less invalid and stays in bed. notes that her voice has changed and is more frail than usually. PAST MEDICAL HISTORY: Documents previous ileus, fatty liver disease, cholelithiasis, documented malnutrition secondary to alcoholism, urinary tract infections, loss of body mobility. Alcohol addiction. Status post previous cataract resection. The patient was placed on pantoprazole/Protonix and Carafate after her EGD on 06/24. CURRENT MEDICATIONS: Sucralfate 1 g q.i.d., ranitidine, Zantac 150 b.i.d., potassium chloride 20 mEq t.i.d., Protonix 40 mg a.c. and alprazolam p.r.n. The alprazolam is consistent with the urine tox screen today, which demonstrated benzodiazepines. The patient is known to be inactive at home. She rests and sleeps in a recliner most of the day. She is menopausal. 3, para 2-1-0-2. No recent falls or head injuries. PHYSICAL EXAMINATION: VITAL SIGNS: Heart rate 121-111. Blood pressure 143/96, repeat 146/95. Respirations 20. Oxygen saturation 100% on room air. Temperature is 36.1 degrees centigrade. HEENT: PERRLA intact. The patient has a very light temper in her voice. It is almost like it is breathy in character. Pharynx has dry mucosa. Pupils equal, round, and reactive to light. There is no nystagmus. EOMs normal. No compromised vision. NECK: Supple. No bruits. No thyromegaly. LUNGS: Clear to auscultation without rales, rhonchi, or wheezes. HEART: S1, S2. No murmur. No irregular rate or rhythm. ABDOMEN: Soft. No guarding. No abdominal discomfort. Liver edge is palpable and the spleen is palpable. Increased abdominal girth. Bowel sounds present. No ascites noted. No edema in the abdomen. EXTREMITIES: 1+ edema. Marked decrease in muscle mass lower legs, mostly bone and the thighs 50% decrease - one would be expected and slight increase of fat more proximally. Deep tendon reflexes are absent in the upper and lower extremities. No clonus, no asterixis. LABORATORY DATA: 1. White count 10,700, PMNs 54, lymphocytes 31, monos 11, eos 2, basos 2, no bands, hemoglobin 16.1, hematocrit 48.8, MCV elevated 96.9 (normal is up to 96). 2. Bandemia 7%, lymphocytes 11, atypical lymphocytes 3%. 3. Salicylates and acetaminophen less, are not abnormal. Benzo was present because she takes Ativan. 4. Status post previous June 19, 2016, hepatitis A IgM antibody negative, hepatitis Bs antigen, hepatitis B core IgM antibody is negative. Hepatitis C antibody negative. Hepatitis interpretation negative. ASSESSMENT: 1. Alcoholism. 2. Extreme atrophy with muscle wasting lower extremities. 3. Lactic acid is not elevated, no suggestion of bowel obstruction; however, she has elevated amylase of 298 reflecting alcoholic gastritis and pancreatitis. Ammonia level from June was elevated to 61, ammonia test has been sent off. C-reactive protein in June was 6.6. Today, AST is 101, elevated ALT 104, alkaline phosphate elevated at 142, ammonia is pending. Creatinine 1.8, BUN 17, BUN and creatinine ratio is 9.4. CO2 level is very low reflecting time to hold onto chloride and sodium with loss of bicarbonate. 4. Diagnosis of alcoholic gastritis, pancreatitis. 5. Bandemia. 6. Possible infection. 7. Alcoholic hepatitis with liver enzyme abnormalities, elevated bilirubin 2.9. Serum ammonia pending. 8. Inanition/loss of muscle mass lower extremities secondary to excessive alcohol induced atrophy. 9. Alcoholic liver disease. 10.Cholelithiasis. 11.Malnutrition. 12.Frail voice. She had CT of her head that did not demonstrate any abnormalities. Radiologist noted some mild temporoparietal atrophy. There is calcification in internal carotid arteries noted and central atrophy of the brain. 13.It is possible that the patient may have a vitamin deficiency. Level is pending. PLAN: The patient be admitted and placed on IVs and appropriate sedation for agitation and anxiety and to support her alcohol withdrawal and also perhaps other drugs she has been using per her . /[id number] AMADEO/MANOJ
[2016-10-28] MEDS ORDERED: traMADol 50 MG Tab PO PRN (09:21)
--- NOTE | 2016-10-28 09:21 | PCM.PN ---
- General Info Date of Service: 10/28/16 Admission Dx/Problem (Free Text): Patient states she feels better. She has some back pain. She states Dr. Pratt has been seeing her for this. She denies any abdominal pain. She says she is drinking point fluids and trying to eat better. She states she would eat better at home because her to good cook. I asked her about alcohol counseling. She does not want this service. - Patient Data Vitals - Most Recent: Last Vital Signs Temp 99.4 F 10/28/16 03:58 Pulse 108 H 10/28/16 03:58 Resp 18 10/28/16 03:58 BP 111/64 10/28/16 03:58 Pulse Ox 96 10/28/16 03:58 Weight - Most Recent: 143 lb 6.4 oz I&O - Last 24 Hours: Intake & Output 10/27/16 10/28/16 10/28/16 22:59 06:59 14:59 Intake Total 811 1327 Output Total 150 1250 Balance 661 77 Lab Results Last 24 Hours: Laboratory Results - last 24 hr 10/25/16 10/27/16 10/27/16 Range/Units 18:50 11:38 15:40 WBC (4.5-12.0) X10-3/uL RBC (3.23-5.20) x10(6)uL Hgb (11.5-15.5) g/dL Hct (30.0-51.3) % MCV (80-96) fL MCH (27.7-33.6) pg MCHC (32.2-35.4) g/dL RDW (11.5-15.5) % Plt Count (125-369) X10(3)uL MPV (7.4-10.4) fL Neut % (Auto) (46-82) % Lymph % (Auto) (13-37) % [place] % (Auto) (4-12) % Eos % (Auto) (1.0-5.0) % Baso % (Auto) (0-2) % Neut # (Auto) (1.6-8.3) # Lymph # (Auto) (0.6-5.0) # [place] # (Auto) (0.0-1.3) # Eos # (Auto) (0.0-0.8) # Baso # (Auto) (0.0-0.2) # Sodium (135-145) mmol/L Potassium 2.7 L* (3.5-5.3) mmol/L Chloride (100-110) mmol/L Carbon Dioxide (23-29) mmol/L BUN (5-20) mg/dL Creatinine (0.6-1.3) mg/dL Est Cr Clr Drug Dosing mL/min Estimated GFR (MDRD) (>60) BUN/Creatinine Ratio (9-20) Glucose (80-116) mg/dL POC Glucose 191 H (80-116) mg/dL Calcium (8.6-10.2) mg/dL Total Bilirubin (0.1-1.3) mg/dL AST (5-27) IU/L ALT (14-26) IU/L Alkaline Phosphatase (56-112) IU/L Ammonia 186 H (16-53) umol/L Total Protein (6.0-8.0) g/dL Albumin (3.5-5.2) g/dL Globulin g/dL Albumin/Globulin Ratio Amylase (28-100) U/L 10/27/16 10/27/16 10/27/16 Range/Units 15:40 17:13 20:58 WBC (4.5-12.0) X10-3/uL RBC (3.23-5.20) x10(6)uL Hgb (11.5-15.5) g/dL Hct (30.0-51.3) % MCV (80-96) fL MCH (27.7-33.6) pg MCHC (32.2-35.4) g/dL RDW (11.5-15.5) % Plt Count (125-369) X10(3)uL MPV (7.4-10.4) fL Neut % (Auto) (46-82) % Lymph % (Auto) (13-37) % [place] % (Auto) (4-12) % Eos % (Auto) (1.0-5.0) % Baso % (Auto) (0-2) % Neut # (Auto) (1.6-8.3) # Lymph # (Auto) (0.6-5.0) # [place] # (Auto) (0.0-1.3) # Eos # (Auto) (0.0-0.8) # Baso # (Auto) (0.0-0.2) # Sodium (135-145) mmol/L Potassium (3.5-5.3) mmol/L Chloride (100-110) mmol/L Carbon Dioxide (23-29) mmol/L BUN (5-20) mg/dL Creatinine (0.6-1.3) mg/dL Est Cr Clr Drug Dosing mL/min Estimated GFR (MDRD) (>60) BUN/Creatinine Ratio (9-20) Glucose (80-116) mg/dL POC Glucose 156 H 134 H (80-116) mg/dL Calcium (8.6-10.2) mg/dL Total Bilirubin (0.1-1.3) mg/dL AST (5-27) IU/L ALT (14-26) IU/L Alkaline Phosphatase (56-112) IU/L Ammonia (16-53) umol/L Total Protein (6.0-8.0) g/dL Albumin (3.5-5.2) g/dL Globulin g/dL Albumin/Globulin Ratio Amylase 75 (28-100) U/L 10/28/16 10/28/16 10/28/16 Range/Units 06:20 06:20 06:20 WBC 8.7 (4.5-12.0) X10-3/uL RBC 3.56 (3.23-5.20) x10(6)uL Hgb 11.8 (11.5-15.5) g/dL Hct 33.3 (30.0-51.3) % MCV 93.5 (80-96) fL MCH 33.0 (27.7-33.6) pg MCHC 35.3 (32.2-35.4) g/dL RDW 13.1 (11.5-15.5) % Plt Count 79 L (125-369) X10(3)uL MPV 9.2 (7.4-10.4) fL Neut % (Auto) 73.8 (46-82) % Lymph % (Auto) 16.1 (13-37) % [place] % (Auto) 8.9 (4-12) % Eos % (Auto) 1 (1.0-5.0) % Baso % (Auto) 1 (0-2) % Neut # (Auto) 6.3 (1.6-8.3) # Lymph # (Auto) 1.4 (0.6-5.0) # [place] # (Auto) 0.8 (0.0-1.3) # Eos # (Auto) 0.1 (0.0-0.8) # Baso # (Auto) 0.1 (0.0-0.2) # Sodium 140 (135-145) mmol/L Potassium 2.9 L (3.5-5.3) mmol/L Chloride 111 H (100-110) mmol/L Carbon Dioxide 23 (23-29) mmol/L BUN < 5 L (5-20) mg/dL Creatinine 0.5 L (0.6-1.3) mg/dL Est Cr Clr Drug Dosing 138.22 mL/min Estimated GFR (MDRD) > 60 (>60) BUN/Creatinine Ratio 10.0 (9-20) Glucose 146 H (80-116) mg/dL POC Glucose (80-116) mg/dL Calcium 8.3 L (8.6-10.2) mg/dL Total Bilirubin 1.6 H (0.1-1.3) mg/dL AST 62 H (5-27) IU/L ALT 47 H D (14-26) IU/L Alkaline Phosphatase 84 (56-112) IU/L Ammonia (16-53) umol/L Total Protein 5.5 L (6.0-8.0) g/dL Albumin 2.7 L (3.5-5.2) g/dL Globulin 2.8 g/dL Albumin/Globulin Ratio 1.0 Amylase 43 (28-100) U/L Med Orders - Current: Current Medications Acetaminophen (Tylenol) 650 mg PO Q4H PRN PRN Reason: Pain (Mild 1-3)/fever Last Admin: 10/25/16 16:56 Dose: 650 mg Famotidine (Pepcid) 10 mg PO BID [facility] Last Admin: 10/28/16 08:16 Dose: 10 mg Folic Acid (Folic Acid) 1 mg PO DAILY [facility] Last Admin: 10/27/16 08:08 Dose: 1 mg Potassium Chloride/Sodium Chloride (Normal Saline With 20 Meq Kcl) 1,000 mls @ 125 mls/hr IV Q7H [facility] Last Admin: 10/28/16 08:15 Dose: 125 mls/hr Levofloxacin (Levaquin) 500 mg PO Q24H [facility] Last Admin: 10/27/16 10:58 Dose: 500 mg Lorazepam (Ativan) 0 mg IV ASDIRECTED [facility] PRN Reason: Protocol Last Admin: 10/26/16 10:15 Dose: 1 mg Lorazepam (Ativan) 1 mg PO Q1H PRN PRN Reason: Anxiety Last Admin: 10/27/16 05:04 Dose: 1 mg Magnesium Hydroxide (Milk Of Magnesia) 30 ml PO Q12H PRN PRN Reason: Constipation Metoprolol Tartrate (Lopressor) 12.5 mg PO BID [facility] Last Admin: 10/27/16 20:30 Dose: 12.5 mg Multivitamins/Minerals/Vitamin C (Tab-A-Shelby) 1 tab PO DAILY [facility] Last Admin: 10/27/16 08:08 Dose: 1 tab Ondansetron HCl (Zofran) 4 mg IV Q4H PRN PRN Reason: Nausea/Vomiting Last Admin: 10/28/16 08:28 Dose: 4 mg Pantoprazole Sodium (Protonix) 40 mg PO DAILY@0600 [facility] Last Admin: 10/28/16 05:49 Dose: 40 mg Potassium Chloride (Klor-Con M20) 40 meq PO TID [facility] Last Admin: 10/28/16 08:17 Dose: 40 meq Sodium Chloride (Saline Flush) 10 ml FLUSH ASDIRECTED PRN PRN Reason: Keep Vein Open Last Admin: 10/26/16 10:21 Dose: 10 ml Sucralfate (Carafate) 1 gm PO QIDACANDBED [facility] Last Admin: 10/28/16 07:38 Dose: 1 gm Thiamine HCl (Vitamin B-1) 100 mg IM DAILY [facility] Last Admin: 10/27/16 08:08 Dose: 100 mg Tramadol HCl (Ultram) 50 mg PO Q4H PRN PRN Reason: Pain Last Admin: 10/25/16 20:42 Dose: 50 mg Discontinued Medications Dextrose/Lactated Ringer's (Dextrose 5%-Lactated Ringers) 1,000 mls @ 999 mls/ hr IV ASDIRECTED [facility] Sodium Chloride (Normal Saline) 1,000 mls @ 999 mls/hr IV .BOLUS ONE Stop: 10/25/16 14:27 Last Admin: 10/25/16 13:45 Dose: 999 mls/hr Multivitamins/Minerals 10 ml/Thiamine HCl 100 mg/ Folic Acid 1 mg/ Magnesium Sulfate 3 gm/ Sodium Chloride 1,017.2 mls @ 400 mls/hr IV ASDIRECTED [facility] Last Admin: 10/25/16 15:13 Dose: 400 mls/hr Sodium Chloride (Normal Saline) 1,000 mls @ 150 mls/hr IV ASDIRECTED [facility] Last Infusion: 10/25/16 18:19 Dose: 250 mls/hr Sodium Chloride (Normal Saline) 1,000 mls @ 150 mls/hr IV ASDIRECTED [facility] Last Admin: 10/26/16 08:26 Dose: 150 mls/hr Sodium Chloride (Normal Saline) 1,000 mls @ 250 mls/hr IV ASDIRECTED [facility] Stop: 10/26/16 20:14 Last Admin: 10/25/16 21:51 Dose: 250 mls/hr Iopamidol (Isovue-370 (76%)) 75 ml IV ONETIME ONE Stop: 10/26/16 10:16 Last Admin: 10/26/16 10:40 Dose: 75 ml Pantoprazole Sodium (Protonix) 40 mg PO ACBREAKFAST [facility] Last Admin: 10/26/16 07:35 Dose: 40 mg Potassium Chloride (Klor-Con M20) 20 meq PO TID [facility] Last Admin: 10/25/16 20:42 Dose: 20 meq Potassium Chloride (Klor-Con M20) 20 meq PO ONETIME ONE Stop: 10/26/16 09:01 Last Admin: 10/26/16 09:30 Dose: 20 meq - Exam General: Alert, Oriented, Cooperative Lungs: Clear to Auscultation, Normal Respiratory Effort Cardiovascular: Regular Rate, Regular Rhythm GI/Abdominal Exam: Normal Bowel Sounds, Soft, Non-Tender, No Distention, No Mass Back Exam: Other (Right low back pain no pain over the spine. No pain over the pelvis.) - Problem List & Annotations (1) Pancreatitis SNOMED Code(s): 88430126 Code(s): K85.90 - ACUTE PANCREATITIS WITHOUT NECROSIS OR INFECTION, UNSP Status: Acute Current Visit: Yes (2) Acute on chronic alteration in mental status SNOMED Code(s): 001377378 Code(s): R41.82 - ALTERED MENTAL STATUS, UNSPECIFIED Status: Acute Current Visit: No (3) Dehydration SNOMED Code(s): 20411414 Code(s): E86.0 - DEHYDRATION Status: Acute Priority: High Current Visit : No (4) Alcohol addiction SNOMED Code(s): 17579107, 602274185 Code(s): F10.20 - ALCOHOL DEPENDENCE, UNCOMPLICATED Status: Chronic Current Visit: No Qualifiers: (5) Hypokalemia SNOMED Code(s): 93758802 Code(s): E87.6 - HYPOKALEMIA Status: Acute Current Visit: No (6) Sinus tachycardia SNOMED Code(s): 72092362 Code(s): R00.0 - TACHYCARDIA, UNSPECIFIED Status: Acute Current Visit: Yes - Problem List Review Problem List Initiated/Reviewed/Updated: Yes - My Orders Last 24 Hours: My Active Orders 10/27/16 09:00 Thiamine [Vitamin B-1] 100 mg IM DAILY 10/27/16 10:30 Levofloxacin [Levaquin] 500 mg PO Q24H Metoprolol Tartrate [Lopressor] 12.5 mg PO BID 10/27/16 15:40 FREE T3 [REF] Routine FREE T4 [REF] Routine 10/27/16 16:41 Consult to Occupational Therapy [OT Evaluation and Treatment] [CONS] Routine Consult to Physical Therapy [PT Evaluation and Treatment] [CONS] Routine 10/27/16 Dinner Regular Diet [DIET] 10/28/16 05:52 GLUCOSE,POC [POC] Routine 10/28/16 09:18 TSH ULTRASENSITIVE [CHEM] Routine - Plan Plan:: 1. TSH is slightly low. I'm going to repeat his to make sure it's accurate. 2. Continue metipranolol for her tachycardia. This may be from hyperthyroidism. 3. DC IV fluids and saline lock IV. 4. PT/OT for strengthening. 5. Patient would like a pain pill before she does physical therapy. I will order some tramadol. 6. Discuss alcohol intervention. She does not want it. 7. Discussed the effects of alcohol on her pancreas and lesser body. She states she understands.
--- NOTE | 2016-10-28 09:36 | PCM.PN ---
- General Info Date of Service: 10/28/16 Admission Dx/Problem (Free Text): Pancreatitis Functional Status: Reports: Pain Controlled, Tolerating Diet - Review of Systems General: Reports: No Symptoms Neurological: Reports: Confusion (is less today), Trouble Speaking (but able to have conversation today) - Patient Data Vitals - Most Recent: Last Vital Signs Temp 99.4 F 10/28/16 03:58 Pulse 108 H 10/28/16 03:58 Resp 18 10/28/16 03:58 BP 111/64 10/28/16 03:58 Pulse Ox 96 10/28/16 03:58 Weight - Most Recent: 65.045 kg I&O - Last 24 Hours: Intake & Output 10/27/16 10/28/16 10/28/16 22:59 06:59 14:59 Intake Total 811 1327 Output Total 150 1250 Balance 661 77 Lab Results Last 24 Hours: Laboratory Results - last 24 hr 10/25/16 10/27/16 10/27/16 Range/Units 18:50 11:38 15:40 WBC (4.5-12.0) X10-3/uL RBC (3.23-5.20) x10(6)uL Hgb (11.5-15.5) g/dL Hct (30.0-51.3) % MCV (80-96) fL MCH (27.7-33.6) pg MCHC (32.2-35.4) g/dL RDW (11.5-15.5) % Plt Count (125-369) X10(3)uL MPV (7.4-10.4) fL Neut % (Auto) (46-82) % Lymph % (Auto) (13-37) % [place] % (Auto) (4-12) % Eos % (Auto) (1.0-5.0) % Baso % (Auto) (0-2) % Neut # (Auto) (1.6-8.3) # Lymph # (Auto) (0.6-5.0) # [place] # (Auto) (0.0-1.3) # Eos # (Auto) (0.0-0.8) # Baso # (Auto) (0.0-0.2) # Sodium (135-145) mmol/L Potassium 2.7 L* (3.5-5.3) mmol/L Chloride (100-110) mmol/L Carbon Dioxide (23-29) mmol/L BUN (5-20) mg/dL Creatinine (0.6-1.3) mg/dL Est Cr Clr Drug Dosing mL/min Estimated GFR (MDRD) (>60) BUN/Creatinine Ratio (9-20) Glucose (80-116) mg/dL POC Glucose 191 H (80-116) mg/dL Calcium (8.6-10.2) mg/dL Total Bilirubin (0.1-1.3) mg/dL AST (5-27) IU/L ALT (14-26) IU/L Alkaline Phosphatase (56-112) IU/L Ammonia 186 H (16-53) umol/L Total Protein (6.0-8.0) g/dL Albumin (3.5-5.2) g/dL Globulin g/dL Albumin/Globulin Ratio Amylase (28-100) U/L 10/27/16 10/27/16 10/27/16 Range/Units 15:40 17:13 20:58 WBC (4.5-12.0) X10-3/uL RBC (3.23-5.20) x10(6)uL Hgb (11.5-15.5) g/dL Hct (30.0-51.3) % MCV (80-96) fL MCH (27.7-33.6) pg MCHC (32.2-35.4) g/dL RDW (11.5-15.5) % Plt Count (125-369) X10(3)uL MPV (7.4-10.4) fL Neut % (Auto) (46-82) % Lymph % (Auto) (13-37) % [place] % (Auto) (4-12) % Eos % (Auto) (1.0-5.0) % Baso % (Auto) (0-2) % Neut # (Auto) (1.6-8.3) # Lymph # (Auto) (0.6-5.0) # [place] # (Auto) (0.0-1.3) # Eos # (Auto) (0.0-0.8) # Baso # (Auto) (0.0-0.2) # Sodium (135-145) mmol/L Potassium (3.5-5.3) mmol/L Chloride (100-110) mmol/L Carbon Dioxide (23-29) mmol/L BUN (5-20) mg/dL Creatinine (0.6-1.3) mg/dL Est Cr Clr Drug Dosing mL/min Estimated GFR (MDRD) (>60) BUN/Creatinine Ratio (9-20) Glucose (80-116) mg/dL POC Glucose 156 H 134 H (80-116) mg/dL Calcium (8.6-10.2) mg/dL Total Bilirubin (0.1-1.3) mg/dL AST (5-27) IU/L ALT (14-26) IU/L Alkaline Phosphatase (56-112) IU/L Ammonia (16-53) umol/L Total Protein (6.0-8.0) g/dL Albumin (3.5-5.2) g/dL Globulin g/dL Albumin/Globulin Ratio Amylase 75 (28-100) U/L 10/28/16 10/28/16 10/28/16 Range/Units 06:20 06:20 06:20 WBC 8.7 (4.5-12.0) X10-3/uL RBC 3.56 (3.23-5.20) x10(6)uL Hgb 11.8 (11.5-15.5) g/dL Hct 33.3 (30.0-51.3) % MCV 93.5 (80-96) fL MCH 33.0 (27.7-33.6) pg MCHC 35.3 (32.2-35.4) g/dL RDW 13.1 (11.5-15.5) % Plt Count 79 L (125-369) X10(3)uL MPV 9.2 (7.4-10.4) fL Neut % (Auto) 73.8 (46-82) % Lymph % (Auto) 16.1 (13-37) % [place] % (Auto) 8.9 (4-12) % Eos % (Auto) 1 (1.0-5.0) % Baso % (Auto) 1 (0-2) % Neut # (Auto) 6.3 (1.6-8.3) # Lymph # (Auto) 1.4 (0.6-5.0) # [place] # (Auto) 0.8 (0.0-1.3) # Eos # (Auto) 0.1 (0.0-0.8) # Baso # (Auto) 0.1 (0.0-0.2) # Sodium 140 (135-145) mmol/L Potassium 2.9 L (3.5-5.3) mmol/L Chloride 111 H (100-110) mmol/L Carbon Dioxide 23 (23-29) mmol/L BUN < 5 L (5-20) mg/dL Creatinine 0.5 L (0.6-1.3) mg/dL Est Cr Clr Drug Dosing 138.22 mL/min Estimated GFR (MDRD) > 60 (>60) BUN/Creatinine Ratio 10.0 (9-20) Glucose 146 H (80-116) mg/dL POC Glucose (80-116) mg/dL Calcium 8.3 L (8.6-10.2) mg/dL Total Bilirubin 1.6 H (0.1-1.3) mg/dL AST 62 H (5-27) IU/L ALT 47 H D (14-26) IU/L Alkaline Phosphatase 84 (56-112) IU/L Ammonia (16-53) umol/L Total Protein 5.5 L (6.0-8.0) g/dL Albumin 2.7 L (3.5-5.2) g/dL Globulin 2.8 g/dL Albumin/Globulin Ratio 1.0 Amylase 43 (28-100) U/L Med Orders - Current: Current Medications Acetaminophen (Tylenol) 650 mg PO Q4H PRN PRN Reason: Pain (Mild 1-3)/fever Last Admin: 10/25/16 16:56 Dose: 650 mg Famotidine (Pepcid) 10 mg PO BID [facility] Last Admin: 10/28/16 08:16 Dose: 10 mg Folic Acid (Folic Acid) 1 mg PO DAILY [facility] Last Admin: 10/27/16 08:08 Dose: 1 mg Levofloxacin (Levaquin) 500 mg PO Q24H [facility] Last Admin: 10/27/16 10:58 Dose: 500 mg Lorazepam (Ativan) 0 mg IV ASDIRECTED [facility] PRN Reason: Protocol Last Admin: 10/26/16 10:15 Dose: 1 mg Lorazepam (Ativan) 1 mg PO Q1H PRN PRN Reason: Anxiety Last Admin: 10/27/16 05:04 Dose: 1 mg Magnesium Hydroxide (Milk Of Magnesia) 30 ml PO Q12H PRN PRN Reason: Constipation Metoprolol Tartrate (Lopressor) 12.5 mg PO BID [facility] Last Admin: 10/27/16 20:30 Dose: 12.5 mg Multivitamins/Minerals/Vitamin C (Tab-A-Shelby) 1 tab PO DAILY [facility] Last Admin: 10/27/16 08:08 Dose: 1 tab Ondansetron HCl (Zofran) 4 mg IV Q4H PRN PRN Reason: Nausea/Vomiting Last Admin: 10/28/16 08:28 Dose: 4 mg Pantoprazole Sodium (Protonix) 40 mg PO DAILY@0600 [facility] Last Admin: 10/28/16 05:49 Dose: 40 mg Potassium Chloride (Klor-Con M20) 40 meq PO TID [facility] Last Admin: 10/28/16 08:17 Dose: 40 meq Sodium Chloride (Saline Flush) 10 ml FLUSH ASDIRECTED PRN PRN Reason: Keep Vein Open Last Admin: 10/26/16 10:21 Dose: 10 ml Sucralfate (Carafate) 1 gm PO QIDACANDBED [facility] Last Admin: 10/28/16 07:38 Dose: 1 gm Thiamine HCl (Vitamin B-1) 100 mg IM DAILY [facility] Last Admin: 10/27/16 08:08 Dose: 100 mg Tramadol HCl (Ultram) 50 mg PO Q4H PRN PRN Reason: Pain Last Admin: 10/25/16 20:42 Dose: 50 mg Tramadol HCl (Ultram) 50 mg PO Q6H PRN PRN Reason: Pain Discontinued Medications Dextrose/Lactated Ringer's (Dextrose 5%-Lactated Ringers) 1,000 mls @ 999 mls/ hr IV ASDIRECTED [facility] Sodium Chloride (Normal Saline) 1,000 mls @ 999 mls/hr IV .BOLUS ONE Stop: 10/25/16 14:27 Last Admin: 10/25/16 13:45 Dose: 999 mls/hr Multivitamins/Minerals 10 ml/Thiamine HCl 100 mg/ Folic Acid 1 mg/ Magnesium Sulfate 3 gm/ Sodium Chloride 1,017.2 mls @ 400 mls/hr IV ASDIRECTED [facility] Last Admin: 10/25/16 15:13 Dose: 400 mls/hr Sodium Chloride (Normal Saline) 1,000 mls @ 150 mls/hr IV ASDIRECTED [facility] Last Infusion: 10/25/16 18:19 Dose: 250 mls/hr Sodium Chloride (Normal Saline) 1,000 mls @ 150 mls/hr IV ASDIRECTED [facility] Last Admin: 10/26/16 08:26 Dose: 150 mls/hr Sodium Chloride (Normal Saline) 1,000 mls @ 250 mls/hr IV ASDIRECTED [facility] Stop: 10/26/16 20:14 Last Admin: 10/25/16 21:51 Dose: 250 mls/hr Potassium Chloride/Sodium Chloride (Normal Saline With 20 Meq Kcl) 1,000 mls @ 125 mls/hr IV Q7H [facility] Last Admin: 10/28/16 08:15 Dose: 125 mls/hr Iopamidol (Isovue-370 (76%)) 75 ml IV ONETIME ONE Stop: 10/26/16 10:16 Last Admin: 10/26/16 10:40 Dose: 75 ml Pantoprazole Sodium (Protonix) 40 mg PO ACBREAKFAST [facility] Last Admin: 10/26/16 07:35 Dose: 40 mg Potassium Chloride (Klor-Con M20) 20 meq PO TID [facility] Last Admin: 10/25/16 20:42 Dose: 20 meq Potassium Chloride (Klor-Con M20) 20 meq PO ONETIME ONE Stop: 10/26/16 09:01 Last Admin: 10/26/16 09:30 Dose: 20 meq - Exam General: Alert, Cooperative, No Acute Distress GI/Abdominal Exam: Soft, Tender (mild diffuse). No: Guarding - Problem List Review Problem List Initiated/Reviewed/Updated: Yes - Assessment Assessment:: Pancreatitis improving - Plan Plan:: 1. TSH is slightly low. I'm going to repeat his to make sure it's accurate. 2. Continue metipranolol for her tachycardia. This may be from hyperthyroidism. 3. DC IV fluids and saline lock IV. 4. PT/OT for strengthening. 5. Patient would like a pain pill before she does physical therapy. I will order some tramadol. 6. Discuss alcohol intervention. She does not want it. 7. Discussed the effects of alcohol on her pancreas and lesser body. She states she understands.
[2016-10-28] MEDS: Thiamine 200 MG/2 ML MDV IM SCH (10:21)
[2016-10-28] MEDS: Multivitamin Tab PO SCH (10:21)
[2016-10-28] MEDS: Levofloxacin 500 MG Tab PO SCH (10:21)
[2016-10-28] MEDS: Folic Acid 1 MG Tab PO SCH (10:21)
[2016-10-28] MEDS: Metoprolol Tartrate 25 MG Tab PO SCH (10:22)
[2016-10-28] MEDS: traMADol 50 MG Tab PO PRN ×2 (10:42→18:04)
[2016-10-28] MEDS: Sodium Chloride 0.9% 10 ML Syringe FLUSH PRN (10:49)
[2016-10-28 15:49] VITALS: BP 97/59
--- NOTE | 2016-10-28 17:57 | PCM.DCSUM1 ---
Discharge Summary - Hospital Course Free Text/Narrative:: Hospital course-patient was admitted and given aggressive IV therapy. Her amylase was over 400. In the next morning she had a CT that showed necrotizing pancreatitis. I had Dr. Thompson see her. He felt it was acute upon chronic pancreatitis. And not necrotizing pancreatitis. Patient's white count was normal the whole time she was here and she was afebrile. Her potassium was low and we gave her IV and by mouth potassium and came up slowly to about 2.9. Patient had a TSH because she was somewhat tachycardic. It was initially low and then repeated the next day and it was normal. She was given some metipranolol 12.5 mg twice a day for sinus tachycardia. Patient over the next couple days went back to her normal cognition. When she initially came in she can barely talk and she was normal by the time she went home. Physical therapy saw her and felt she was back to her normal strength for her. She want to go home. She has some back pain. But she did not fall so we did not workup any further. She's been having a cough which read that with Levaquin 500 mg a day. I told the patient that with her potassium and low because arrhythmias. She still persists on wanted to go home. Discussed risks. Brief History: This is a 51-year-old female patient with history of chronic alcoholism. Was brought to the ER by her who stated that she been vomiting for several days and felt she was dehydrated. He is not around to get a history. The ER doc states that he agreed with the assessment. When I talk to her she is mumbling and not able to get history. - Discharge Data Discharge Date: 10/28/16 Discharge Disposition: Home, Self-Care 01 Condition: Poor - Discharge Diagnosis/Problem(s) (1) Pancreatitis SNOMED Code(s): 18664526 ICD Code: K85.90 - ACUTE PANCREATITIS WITHOUT NECROSIS OR INFECTION, UNSP Status: Acute Current Visit: Yes (2) Acute on chronic alteration in mental status SNOMED Code(s): 426753261 ICD Code: R41.82 - ALTERED MENTAL STATUS, UNSPECIFIED Status: Acute Current Visit: No (3) Dehydration SNOMED Code(s): 13804533 ICD Code: E86.0 - DEHYDRATION Status: Acute Priority: High Current Visit: No (4) Alcohol addiction SNOMED Code(s): 20556828, 824775627 ICD Code: F10.20 - ALCOHOL DEPENDENCE, UNCOMPLICATED Status: Chronic Current Visit: No Qualifiers: (5) Hypokalemia SNOMED Code(s): 47449847 ICD Code: E87.6 - HYPOKALEMIA Status: Acute Current Visit: No (6) Sinus tachycardia SNOMED Code(s): 41839343 ICD Code: R00.0 - TACHYCARDIA, UNSPECIFIED Status: Acute Current Visit: Yes - Patient Summary/Data Consults: Consultations 10/26/16 14:37 Consult to Physician [CONS] Routine Consulting Provider: Corby Thompson Call Completed to Consulting Physician: Yes Reason for Consult: Necrotizing pancreatitis 10/27/16 16:41 Consult to Occupational Therapy [OT Evaluation and Treatment] [CONS] Routine Please Evaluate and Treat. OT Reason for Consult: Strengthening This query below is only for informational purposes and is not editable. Admission Diagnosis/Problem: Confusion and disorientation Consult to Physical Therapy [PT Evaluation and Treatment] [CONS] Routine Please Evaluate and Treat. PT Reason for Consult: Strengthening This query below is only for informational purposes and is not editable. Admission Diagnosis/Problem: Confusion and disorientation - Patient Instructions Diet: Regular Diet as Tolerated Activity: As Tolerated Driving: Do Not Drive Showering/Bathing: May Shower Notify Provider of: Fever, Increased Pain, Drainage, Nausea and/or Vomiting Other/Special Instructions: 1. Recheck with Dr. Pratt in 1 week with a panel 8 before the appointment. - Discharge Plan Prescriptions/Med Rec: Levofloxacin [Levaquin] 500 mg PO Q24H #5 tablet Home Medications: Home Meds ALPRAZolam [Alprazolam] 0.5 - 1 mg PO BID PRN 10/25/16 [History] Pantoprazole [ProTONIX] 40 mg PO ACBREAKFAST 10/25/16 [History] Potassium Chloride [Klor-Con M20] 20 meq PO TID 10/25/16 [History] Ranitidine [Zantac] 150 mg PO BID 10/25/16 [History] Sucralfate [Carafate] 1 gm PO QIDACANDBED 10/25/16 [History] Levofloxacin [Levaquin] 500 mg PO Q24H #5 tablet 10/28/16 [Rx] Forms: ED Department Discharge Referrals: Rocco Gonsales MD [Primary Care Provider] - - Discharge Summary/Plan Comment DC Time >30 min.: No - Patient Data Vitals - Most Recent: Last Vital Signs Temp 98.6 F 10/28/16 15:30 Pulse 98 10/28/16 15:30 Resp 16 10/28/16 15:30 BP 97/59 L 10/28/16 15:30 Pulse Ox 95 10/28/16 15:30 Weight - Most Recent: 143 lb 6.4 oz I&O - Last 24 hours: Intake & Output 10/28/16 10/28/16 10/28/16 06:59 14:59 22:59 Intake Total 1327 1097 Output Total 1250 250 300 Balance 77 847 -300 Lab Results - Last 24 hrs: Laboratory Results - last 24 hr 10/25/16 10/25/16 10/25/16 Range/Units 18:50 18:50 18:50 WBC (4.5-12.0) X10-3/uL RBC (3.23-5.20) x10(6)uL Hgb (11.5-15.5) g/dL Hct (30.0-51.3) % MCV (80-96) fL MCH (27.7-33.6) pg MCHC (32.2-35.4) g/dL RDW (11.5-15.5) % Plt Count (125-369) X10(3)uL MPV (7.4-10.4) fL Neut % (Auto) (46-82) % Lymph % (Auto) (13-37) % [place] % (Auto) (4-12) % Eos % (Auto) (1.0-5.0) % Baso % (Auto) (0-2) % Neut # (Auto) (1.6-8.3) # Lymph # (Auto) (0.6-5.0) # [place] # (Auto) (0.0-1.3) # Eos # (Auto) (0.0-0.8) # Baso # (Auto) (0.0-0.2) # Sodium (135-145) mmol/L Potassium (3.5-5.3) mmol/L Chloride (100-110) mmol/L Carbon Dioxide (23-29) mmol/L BUN (5-20) mg/dL Creatinine (0.6-1.3) mg/dL Est Cr Clr Drug Dosing mL/min Estimated GFR (MDRD) (>60) BUN/Creatinine Ratio (9-20) Glucose (80-116) mg/dL POC Glucose (80-116) mg/dL Calcium (8.6-10.2) mg/dL Total Bilirubin (0.1-1.3) mg/dL AST (5-27) IU/L ALT (14-26) IU/L Alkaline Phosphatase (56-112) IU/L Ammonia 186 H (16-53) umol/L Total Protein (6.0-8.0) g/dL Albumin (3.5-5.2) g/dL Globulin g/dL Albumin/Globulin Ratio Amylase (28-100) U/L Lipase 2115 H (13-60) U/L Vitamin D 25-Hydroxy 38 (>29) ng/mL TSH, Ultra Sensitive (0.4-5.5) nlU/mL 10/27/16 10/27/16 10/28/16 Range/Units 17:13 20:58 05:52 WBC (4.5-12.0) X10-3/uL RBC (3.23-5.20) x10(6)uL Hgb (11.5-15.5) g/dL Hct (30.0-51.3) % MCV (80-96) fL MCH (27.7-33.6) pg MCHC (32.2-35.4) g/dL RDW (11.5-15.5) % Plt Count (125-369) X10(3)uL MPV (7.4-10.4) fL Neut % (Auto) (46-82) % Lymph % (Auto) (13-37) % [place] % (Auto) (4-12) % Eos % (Auto) (1.0-5.0) % Baso % (Auto) (0-2) % Neut # (Auto) (1.6-8.3) # Lymph # (Auto) (0.6-5.0) # [place] # (Auto) (0.0-1.3) # Eos # (Auto) (0.0-0.8) # Baso # (Auto) (0.0-0.2) # Sodium (135-145) mmol/L Potassium (3.5-5.3) mmol/L Chloride (100-110) mmol/L Carbon Dioxide (23-29) mmol/L BUN (5-20) mg/dL Creatinine (0.6-1.3) mg/dL Est Cr Clr Drug Dosing mL/min Estimated GFR (MDRD) (>60) BUN/Creatinine Ratio (9-20) Glucose (80-116) mg/dL POC Glucose 156 H 134 H 121 H (80-116) mg/dL Calcium (8.6-10.2) mg/dL Total Bilirubin (0.1-1.3) mg/dL AST (5-27) IU/L ALT (14-26) IU/L Alkaline Phosphatase (56-112) IU/L Ammonia (16-53) umol/L Total Protein (6.0-8.0) g/dL Albumin (3.5-5.2) g/dL Globulin g/dL Albumin/Globulin Ratio Amylase (28-100) U/L Lipase (13-60) U/L Vitamin D 25-Hydroxy (>29) ng/mL TSH, Ultra Sensitive (0.4-5.5) nlU/mL 10/28/16 10/28/16 10/28/16 Range/Units 06:20 06:20 06:20 WBC 8.7 (4.5-12.0) X10-3/uL RBC 3.56 (3.23-5.20) x10(6)uL Hgb 11.8 (11.5-15.5) g/dL Hct 33.3 (30.0-51.3) % MCV 93.5 (80-96) fL MCH 33.0 (27.7-33.6) pg MCHC 35.3 (32.2-35.4) g/dL RDW 13.1 (11.5-15.5) % Plt Count 79 L (125-369) X10(3)uL MPV 9.2 (7.4-10.4) fL Neut % (Auto) 73.8 (46-82) % Lymph % (Auto) 16.1 (13-37) % [place] % (Auto) 8.9 (4-12) % Eos % (Auto) 1 (1.0-5.0) % Baso % (Auto) 1 (0-2) % Neut # (Auto) 6.3 (1.6-8.3) # Lymph # (Auto) 1.4 (0.6-5.0) # [place] # (Auto) 0.8 (0.0-1.3) # Eos # (Auto) 0.1 (0.0-0.8) # Baso # (Auto) 0.1 (0.0-0.2) # Sodium 140 (135-145) mmol/L Potassium 2.9 L (3.5-5.3) mmol/L Chloride 111 H (100-110) mmol/L Carbon Dioxide 23 (23-29) mmol/L BUN < 5 L (5-20) mg/dL Creatinine 0.5 L (0.6-1.3) mg/dL Est Cr Clr Drug Dosing 138.22 mL/min Estimated GFR (MDRD) > 60 (>60) BUN/Creatinine Ratio 10.0 (9-20) Glucose 146 H (80-116) mg/dL POC Glucose (80-116) mg/dL Calcium 8.3 L (8.6-10.2) mg/dL Total Bilirubin 1.6 H (0.1-1.3) mg/dL AST 62 H (5-27) IU/L ALT 47 H D (14-26) IU/L Alkaline Phosphatase 84 (56-112) IU/L Ammonia (16-53) umol/L Total Protein 5.5 L (6.0-8.0) g/dL Albumin 2.7 L (3.5-5.2) g/dL Globulin 2.8 g/dL Albumin/Globulin Ratio 1.0 Amylase 43 (28-100) U/L Lipase (13-60) U/L Vitamin D 25-Hydroxy (>29) ng/mL TSH, Ultra Sensitive (0.4-5.5) nlU/mL 10/28/16 Range/Units 10:47 WBC (4.5-12.0) X10-3/uL RBC (3.23-5.20) x10(6)uL Hgb (11.5-15.5) g/dL Hct (30.0-51.3) % MCV (80-96) fL MCH (27.7-33.6) pg MCHC (32.2-35.4) g/dL RDW (11.5-15.5) % Plt Count (125-369) X10(3)uL MPV (7.4-10.4) fL Neut % (Auto) (46-82) % Lymph % (Auto) (13-37) % [place] % (Auto) (4-12) % Eos % (Auto) (1.0-5.0) % Baso % (Auto) (0-2) % Neut # (Auto) (1.6-8.3) # Lymph # (Auto) (0.6-5.0) # [place] # (Auto) (0.0-1.3) # Eos # (Auto) (0.0-0.8) # Baso # (Auto) (0.0-0.2) # Sodium (135-145) mmol/L Potassium (3.5-5.3) mmol/L Chloride (100-110) mmol/L Carbon Dioxide (23-29) mmol/L BUN (5-20) mg/dL Creatinine (0.6-1.3) mg/dL Est Cr Clr Drug Dosing mL/min Estimated GFR (MDRD) (>60) BUN/Creatinine Ratio (9-20) Glucose (80-116) mg/dL POC Glucose (80-116) mg/dL Calcium (8.6-10.2) mg/dL Total Bilirubin (0.1-1.3) mg/dL AST (5-27) IU/L ALT (14-26) IU/L Alkaline Phosphatase (56-112) IU/L Ammonia (16-53) umol/L Total Protein (6.0-8.0) g/dL Albumin (3.5-5.2) g/dL Globulin g/dL Albumin/Globulin Ratio Amylase (28-100) U/L Lipase (13-60) U/L Vitamin D 25-Hydroxy (>29) ng/mL TSH, Ultra Sensitive 0.80 (0.4-5.5) nlU/mL Med Orders - Current: Current Medications Acetaminophen (Tylenol) 650 mg PO Q4H PRN PRN Reason: Pain (Mild 1-3)/fever Last Admin: 10/25/16 16:56 Dose: 650 mg Famotidine (Pepcid) 10 mg PO BID [facility] Last Admin: 10/28/16 08:16 Dose: 10 mg Folic Acid (Folic Acid) 1 mg PO DAILY [facility] Last Admin: 10/28/16 10:21 Dose: 1 mg Levofloxacin (Levaquin) 500 mg PO Q24H [facility] Last Admin: 10/28/16 10:21 Dose: 500 mg Lorazepam (Ativan) 0 mg IV ASDIRECTED [facility] PRN Reason: Protocol Last Admin: 10/26/16 10:15 Dose: 1 mg Lorazepam (Ativan) 1 mg PO Q1H PRN PRN Reason: Anxiety Last Admin: 10/27/16 05:04 Dose: 1 mg Magnesium Hydroxide (Milk Of Magnesia) 30 ml PO Q12H PRN PRN Reason: Constipation Metoprolol Tartrate (Lopressor) 12.5 mg PO BID [facility] Last Admin: 10/28/16 10:22 Dose: 12.5 mg Multivitamins/Minerals/Vitamin C (Tab-A-[place]) 1 tab PO DAILY [facility] Last Admin: 10/28/16 10:21 Dose: 1 tab Ondansetron HCl (Zofran) 4 mg IV Q4H PRN PRN Reason: Nausea/Vomiting Last Admin: 10/28/16 08:28 Dose: 4 mg Pantoprazole Sodium (Protonix) 40 mg PO DAILY@0600 [facility] Last Admin: 10/28/16 05:49 Dose: 40 mg Potassium Chloride (Klor-Con M20) 40 meq PO TID [facility] Last Admin: 10/28/16 14:52 Dose: 40 meq Sodium Chloride (Saline Flush) 10 ml FLUSH ASDIRECTED PRN PRN Reason: Keep Vein Open Last Admin: 10/28/16 10:49 Dose: 10 ml Sucralfate (Carafate) 1 gm PO QIDACANDBED [facility] Last Admin: 10/28/16 11:30 Dose: 1 gm Thiamine HCl (Vitamin B-1) 100 mg IM DAILY [facility] Last Admin: 10/28/16 10:21 Dose: 100 mg Tramadol HCl (Ultram) 50 mg PO Q4H PRN PRN Reason: Pain Last Admin: 10/28/16 10:42 Dose: 50 mg Tramadol HCl (Ultram) 50 mg PO Q6H PRN PRN Reason: Pain Discontinued Medications Dextrose/Lactated Ringer's (Dextrose 5%-Lactated Ringers) 1,000 mls @ 999 mls/ hr IV ASDIRECTED ERICH Sodium Chloride (Normal Saline) 1,000 mls @ 999 mls/hr IV .BOLUS ONE Stop: 10/25/16 14:27 Last Admin: 10/25/16 13:45 Dose: 999 mls/hr Multivitamins/Minerals 10 ml/Thiamine HCl 100 mg/ Folic Acid 1 mg/ Magnesium Sulfate 3 gm/ Sodium Chloride 1,017.2 mls @ 400 mls/hr IV ASDIRECTED ERICH Last Admin: 10/25/16 15:13 Dose: 400 mls/hr Sodium Chloride (Normal Saline) 1,000 mls @ 150 mls/hr IV ASDIRECTED ERICH Last Infusion: 10/25/16 18:19 Dose: 250 mls/hr Sodium Chloride (Normal Saline) 1,000 mls @ 150 mls/hr IV ASDIRECTED ERICH Last Admin: 10/26/16 08:26 Dose: 150 mls/hr Sodium Chloride (Normal Saline) 1,000 mls @ 250 mls/hr IV ASDIRECTED ERICH Stop: 10/26/16 20:14 Last Admin: 10/25/16 21:51 Dose: 250 mls/hr Potassium Chloride/Sodium Chloride (Normal Saline With 20 Meq Kcl) 1,000 mls @ 125 mls/hr IV Q7H ERICH Last Admin: 10/28/16 08:15 Dose: 125 mls/hr Iopamidol (Isovue-370 (76%)) 75 ml IV ONETIME ONE Stop: 10/26/16 10:16 Last Admin: 10/26/16 10:40 Dose: 75 ml Pantoprazole Sodium (Protonix) 40 mg PO ACBREAKFAST [facility] Last Admin: 10/26/16 07:35 Dose: 40 mg Potassium Chloride (Klor-Con M20) 20 meq PO TID ERICH Last Admin: 10/25/16 20:42 Dose: 20 meq Potassium Chloride (Klor-Con M20) 20 meq PO ONETIME ONE Stop: 10/26/16 09:01 Last Admin: 10/26/16 09:30 Dose: 20 meq *Q Meaningful Use (DIS) - VTE *Q VTE Criteria *Q: VTE Pharmacological Contraindications *Q: Not Candidate LT Anticoag - Stroke *Q Stroke Criteria *Q: - AMI *Q AMI Criteria *Q:
[2016-11-01 19:10] LABS: NICOTINAMIDE 7.2 ng/mL (5.2-72.1); NICOTINIC ACID <5.0 ng/mL (0.0-5.0)
== END 2016-10-28 19:00 | disposition home or self-care (01) | DRG 440 ==
LOC: FB.ED 12:16 → FB.MS 15:49
PROVIDERS: ADMIT Emergency Medicine; ATTEND Family Medicine
DX: K85.90 Acute pancreatitis without necrosis or infection, unspecified (principal); E86.0 Dehydration; F10.20 Alcohol dependence, uncomplicated; R47.81 Slurred speech; R41.82 Altered mental status, unspecified; R41.0 Disorientation, unspecified; Y90.0 Blood alcohol level of less than 20 mg/100 ml; F41.9 Anxiety disorder, unspecified; K21.9 Gastro-esophageal reflux disease without esophagitis; Z87.440 Personal history of urinary (tract) infections; M54.9 Dorsalgia, unspecified; R00.0 Tachycardia, unspecified; E87.6 Hypokalemia; Z68.21 Body mass index [BMI] 21.0-21.9, adult; Z74.09 Other reduced mobility
CPT/HCPCS: 36415; 70450; 71010; 80053; 80305; 82150; 82607; 83605; 83735; 85025; 85610; 85730; 87086; 87389; 96361; 96365; 99285; J3411; J3475; J7040 ×2; 74160; 81001; 82140; 82306; 82962; 83690; 84132; 84252; 84425; 84439; 84443; 84481; 84591; 93005; 97166-GO; A9270-GY; G0480; J2060; J2405; J3480; J3490; J7050; Q9967

== ENCOUNTER 2017-02-18 13:02 | Inpatient (IN) | payer MEDICAID ==
[2017-02-18] MEDS ORDERED: Sodium Chloride 0.9% 1,000 ML IV ONE ×2 (13:45→13:51)
[2017-02-18] MEDS ORDERED: Ondansetron 4 MG/2 ML SDV IVPUSH ONE (13:46)
[2017-02-18] MEDS ORDERED: Magnesium Sulfate/Water 2 GM in Premix Bag 1 BAG IV ONE (13:46)
[2017-02-18] MEDS ORDERED: Ketorolac 30 MG/ML SDV IVPUSH ONE (13:46)
--- NOTE | 2017-02-18 13:59 | EDM.PDOC ---
ED HPI GENERAL MEDICAL PROBLEM - General Chief Complaint: Gastrointestinal Problem Stated Complaint: DEHYDRATED Time Seen by Provider: 02/18/17 13:15 Source of Information: Reports: Patient History Limitations: Reports: No Limitations - History of Present Illness INITIAL COMMENTS - FREE TEXT/NARRATIVE: c/o N, V and dehydration x 2d eating and drinking little, some pain in mid back, denies abd pain altho is tender over pancrease no f/c/d last admitted 4m ago for 3d for alcoholism and acute on chronic pancreatitis, abd CT showed possible necrotizing pancreatitis altho Dr Thompson consulted and thought she had acute on chronic pancreatitis QT interval 320, will give Mg 2 gm over 20 min as last Mg 1.8 and multiple prior Mg have been low states last alcohol drink was "several days ago" does not know her meds, [facility] says she was last in for med 10/[address] Archer in office 11-22-16 for LUQ abd pain who noted she had GB sludge on U/S as well as CT, last in the ED at [facility] at end of Oct and noted to have pancreatitis on CT with inc'd ALT/AST/alk phos will defer on CT as she had two abd CTs 4m ago (here and [facility]) PSH: appy, cataract extraction b/l Generalized Pain Score (Numeric/FACES): 8 - Related Data Allergies Allergy/AdvReac Type Severity Reaction Status Date / Time No Known Allergies Allergy Verified 02/18/17 13:21 Home Meds: Home Meds ALPRAZolam [Alprazolam] 0.5 - 1 mg PO BID PRN 10/25/16 [History] Pantoprazole [ProTONIX] 40 mg PO ACBREAKFAST 10/25/16 [History] Potassium Chloride [Klor-Con M20] 20 meq PO TID 10/25/16 [History] Ranitidine [Zantac] 150 mg PO BID 10/25/16 [History] Sucralfate [Carafate] 1 gm PO QIDACANDBED 10/25/16 [History] Levofloxacin [Levaquin] 500 mg PO Q24H #5 tablet 10/28/16 [Rx] Past Medical History HEENT History: Reports: Cataract Cardiovascular History: Reports: Other (See Below) Other Cardiovascular History: Pt reports palpitations Gastrointestinal History: Reports: Cholelithiasis, Cirrhosis, Gastritis, GERD Genitourinary History: Reports: UTI, Recurrent POISER BALANCE History: Reports: Musculoskeletal History: Reports: Other (See Below) Other Musculoskeletal History: peripheral neuropathy Neurological History: Reports: Neuropathy, Peripheral Psychiatric History: Reports: Addiction, Anxiety, Psych Hospitalization(s) Other Psychiatric History: Hx ETOH abuse Endocrine/Metabolic History: Reports: None Hematologic History: Reports: None Immunologic History: Reports: None Oncologic (Cancer) History: Reports: None Dermatologic History: Reports: Other (See Below) Other Dermatologic History: severe goel bite to hands bilat & feet. Has bilat foot drop. - Infectious Disease History Infectious Disease History: Reports: Other (See Below) Other Infectious Disease History: Unknown. - Past Surgical History HEENT Surgical History: Reports: Cataract Surgery, Tonsillectomy Dermatological Surgical History: Reports: Skin Graft Social & Family History - Family History Family Medical History: Noncontributory - Tobacco Use Smoking Status *Q: Never Smoker - Caffeine Use Caffeine Use: Reports: None Other Caffeine Use: Unknown. Patient poor historian at this time. Caffeine Use Comment: Does not use caffeine regularly - Alcohol Use Days Per Week of Alcohol Use: 7 Number of Drinks Per Day: 5 Total Drinks Per Week: 35 - Recreational Drug Use Recreational Drug Use: No ED ROS GENERAL - Review of Systems Review Of Systems: See Below Constitutional: Reports: Weakness. Denies: Fever, Chills, Night Sweats, Diaphoresis HEENT: Reports: No Symptoms Respiratory: Reports: No Symptoms Cardiovascular: Reports: No Symptoms Endocrine: Reports: No Symptoms GI/Abdominal: Reports: Nausea, Vomiting : Reports: No Symptoms Musculoskeletal: Reports: No Symptoms Skin: Reports: No Symptoms Neurological: Reports: No Symptoms Psychiatric: Reports: Anxiety Hematologic/Lymphatic: Reports: No Symptoms Immunologic: Reports: No Symptoms ED EXAM, GI/ABD - Physical Exam Exam: See Below Exam Limited By: No Limitations General Appearance: Alert, WD/WN, Mild Distress, Other (nontoxic) Nose: Normal Inspection, Normal Mucosa, No Blood Throat/Mouth: Normal Inspection, Normal Lips, Normal Teeth, Normal Voice, No Airway Compromise Head: Atraumatic, Normocephalic Neck: Normal Inspection, Supple, Non-Tender, Full Range of Motion Respiratory/Chest: No Respiratory Distress, Lungs Clear, Normal Breath Sounds, No Accessory Muscle Use, Chest Non-Tender Cardiovascular: Regular Rate, Rhythm, No Gallop, No Rub, Tachycardia, Other (2/ 6 OMAR LSB, no heave, no s3/s4, tachy, regular) GI/Abdominal Exam: Soft, No Distention, No Mass, Other (1+ tender over pancrease , NT at epigastrium, back no CVAT) Back Exam: Normal Inspection Extremities: Normal Inspection, Normal Range of Motion, Non-Tender Neurological: Alert, Oriented, CN II-XII Intact, Normal Cognition, No Motor/ Sensory Deficits Psychiatric: Anxious Skin Exam: Warm, Dry, Intact, Normal Color, No Rash Lymphatic: No Adenopathy Course - Vital Signs Last Recorded V/S: Last Vital Signs Temp 36.2 C 02/18/17 13:26 Pulse 152 H 02/18/17 13:26 Resp 18 02/18/17 13:26 BP 126/84 02/18/17 13:26 Pulse Ox 100 02/18/17 13:26 - Orders/Labs/Meds Orders: Active Orders 24 hr Category Date Time Status Admission Status [Patient Status] [ADT] Routine ADT 02/18/17 15:17 Ordered EKG Documentation Completion [RC] ASDIRECTED Care 02/18/17 14:52 Active AMYLASE [CHEM] Stat Lab 02/18/17 14:05 Results COMPREHENSIVE METABOLIC PN,CMP [CHEM] Stat Lab 02/18/17 14:05 Results DRUG SCREEN, URINE ALERE [URCHEM] Stat Lab 02/18/17 13:49 Uncollected LIPASE [REF] Stat Lab 02/18/17 14:05 Received MAGNESIUM [CHEM] Stat Lab 02/18/17 14:05 Results URINALYSIS W/MICROSCOPIC [UA W/MICROSCOPIC] [URIN] Stat Lab 02/18/17 13:47 Uncollected EKG 12 Lead [EK] Routine Ther 02/18/17 13:47 Ordered EKG 12 Lead [EK] Routine Ther 02/18/17 14:52 Ordered Labs: Laboratory Tests 02/18/17 02/18/17 02/18/17 Range/Units 14:05 14:05 14:05 WBC 16.0 H (4.5-12.0) X10-3/uL RBC 4.78 (3.23-5.20) x10(6)uL Hgb 15.8 H D (11.5-15.5) g/dL Hct 47.4 D (30.0-51.3) % MCV 99.1 H (80-96) fL MCH 32.9 (27.7-33.6) pg MCHC 33.2 (32.2-35.4) g/dL RDW 12.7 (11.5-15.5) % Plt Count 222 (125-369) X10(3)uL MPV 8.7 (7.4-10.4) fL Add Manual Diff Yes Neutrophils % (Manual) 86 H (46-82) % Lymphocytes % (Manual) 6 L (13-37) % Monocytes % (Manual) 8 (4-12) % Sodium 141 (135-145) mmol/L Potassium 4.2 (3.5-5.3) mmol/L Chloride 97 L (100-110) mmol/L BUN 16 (7-18) mg/dL Creatinine 1.2 H (0.55-1.02) mg/dL Est Cr Clr Drug Dosing 57.59 mL/min Estimated GFR (MDRD) 47 L (>60) BUN/Creatinine Ratio 13.3 (9-20) Glucose 240 H (80-116) mg/dL Lactic Acid (0.4-2.2) mmol/L Calcium 9.7 (8.6-10.2) mg/dL Magnesium 1.8 (1.8-2.5) mg/dL Total Bilirubin 1.6 H (0.1-1.3) mg/dL AST 78 H (5-25) IU/L ALT 63 H (12-36) U/L Alkaline Phosphatase 203 H (56-112) IU/L Troponin I < 0.017 L (<0.017-0.056) ng/mL C-Reactive Protein 0.2 L (0.5-0.9) mg/dL Total Protein 9.4 H (6.0-8.0) g/dL Albumin 4.6 (3.5-5.2) g/dL Globulin 4.8 g/dL Albumin/Globulin Ratio 1.0 Amylase 97 (25-115) U/L /12/17 Range/Units 14:05 WBC (4.5-12.0) X10-3/uL RBC (3.23-5.20) x10(6)uL Hgb (11.5-15.5) g/dL Hct (30.0-51.3) % MCV (80-96) fL MCH (27.7-33.6) pg MCHC (32.2-35.4) g/dL RDW (11.5-15.5) % Plt Count (125-369) X10(3)uL MPV (7.4-10.4) fL Add Manual Diff Neutrophils % (Manual) (46-82) % Lymphocytes % (Manual) (13-37) % Monocytes % (Manual) (4-12) % Sodium (135-145) mmol/L Potassium (3.5-5.3) mmol/L Chloride (100-110) mmol/L BUN (7-18) mg/dL Creatinine (0.55-1.02) mg/dL Est Cr Clr Drug Dosing mL/min Estimated GFR (MDRD) (>60) BUN/Creatinine Ratio (9-20) Glucose (80-116) mg/dL Lactic Acid 3.4 H (0.4-2.2) mmol/L Calcium (8.6-10.2) mg/dL Magnesium (1.8-2.5) mg/dL Total Bilirubin (0.1-1.3) mg/dL AST (5-25) IU/L ALT (12-36) U/L Alkaline Phosphatase (56-112) IU/L Troponin I (<0.017-0.056) ng/mL C-Reactive Protein (0.5-0.9) mg/dL Total Protein (6.0-8.0) g/dL Albumin (3.5-5.2) g/dL Globulin g/dL Albumin/Globulin Ratio Amylase (25-115) U/L Meds: Medications Discontinued Medications Generic Name Dose Route Start Last Admin Trade Name Freq PRN Reason Stop Dose Admin Magnesium Sulfate 2 gm/ Premix 50 mls @ 150 mls/hr 02/18/17 13:46 02/18/17 14 :11 IV 02/18/17 14:05 150 mls/hr ONETIME ONE Administration Sodium Chloride 1,000 mls @ 999 mls/hr 02/18/17 13:45 02/18/17 13:49 Normal Saline IV 02/18/17 14:45 999 mls/hr .BOLUS ONE Administration Sodium Chloride 1,000 mls @ 999 mls/hr 02/18/17 13:51 02/18/17 15:12 Normal Saline IV 02/18/17 14:51 999 mls/hr .BOLUS ONE Administration Ketorolac Tromethamine 30 mg 02/18/17 13:46 02/18/17 14:08 Toradol IVPUSH 02/18/17 13:47 30 mg ONETIME ONE Administration Ondansetron HCl 4 mg 02/18/17 13:46 02/18/17 14:08 Zofran IVPUSH 02/18/17 13:47 4 mg ONETIME ONE Administration - Re-Assessments/Exams Free Text/Narrative Re-Assessment/Exam: 02/18/17 15:18 d/w Dr Luna who accepted her in admission to floor bed with telemetry, labs reviewed, HR d 123, now 133, will obtain a repeat EKG to re-examine QT interval Departure - Departure Time of Disposition: 15:19 Disposition: Admitted As Inpatient 67 Clinical Impression: Acute pancreatitis, Acute alcoholic hepatitis, Lactic acidosis, Dehydration, moderate, Alcohol abuse - Discharge Information Referrals: Rocco Gonsales MD [Primary Care Provider] - Forms: ED Department Discharge - My Orders Last 24 Hours: My Active Orders 02/18/17 13:47 URINALYSIS W/MICROSCOPIC [UA W/MICROSCOPIC] [URIN] Stat EKG 12 Lead [EK] Routine 02/18/17 13:49 DRUG SCREEN, URINE ALERE [URCHEM] Stat 02/18/17 14:05 AMYLASE [CHEM] Stat COMPREHENSIVE METABOLIC PN,CMP [CHEM] Stat LIPASE [REF] Stat MAGNESIUM [CHEM] Stat 02/18/17 14:52 EKG Documentation Completion [RC] ASDIRECTED EKG 12 Lead [EK] Routine 02/18/17 15:17 Admission Status [Patient Status] [ADT] Routine - Assessment/Plan Last 24 Hours: My Active Orders 02/18/17 13:47 URINALYSIS W/MICROSCOPIC [UA W/MICROSCOPIC] [URIN] Stat EKG 12 Lead [EK] Routine 02/18/17 13:49 DRUG SCREEN, URINE ALERE [URCHEM] Stat 02/18/17 14:05 AMYLASE [CHEM] Stat COMPREHENSIVE METABOLIC PN,CMP [CHEM] Stat LIPASE [REF] Stat MAGNESIUM [CHEM] Stat 02/18/17 14:52 EKG Documentation Completion [RC] ASDIRECTED EKG 12 Lead [EK] Routine 02/18/17 15:17 Admission Status [Patient Status] [ADT] Routine
[2017-02-18] MEDS ORDERED: Magnesium Hydroxide 400 MG/5 ML Susp 30 ML Cup PO PRN (16:51)
[2017-02-18] MEDS ORDERED: Ondansetron 4 MG/2 ML SDV IV PRN (16:51)
[2017-02-18] MEDS ORDERED: Acetaminophen 325 MG Tab PO PRN (16:51)
[2017-02-18] MEDS ORDERED: NS + KCl 20mEq/L 1,000 ML IV SCH ×2 (17:00→22:30)
--- NOTE | 2017-02-18 17:50 | PCM.HP ---
H&P History of Present Illness - General Date of Service: 02/18/17 Source of Information: Patient History Limitations: Reports: No Limitations - History of Present Illness Initial Comments - Free Text/Narative: This is a 52-year-old female patient comes in today for 3-4 day history of vomiting nausea and not able to drink or eat anything and dehydration. She denies abdominal pain, diarrhea, constipation, fevers, chills. She has a history of chronic pancreatitis. But she denies abdominal pain at this time. She denies fevers, chills. She has history of chronic alcohol use. Her states she's trach in about 6 beers a week and has not drank in the last 3-4 days. Generalized Pain Score (Numeric/FACES): 9 - Related Data Allergies/Adverse Reactions: Allergies Allergy/AdvReac Type Severity Reaction Status Date / Time No Known Allergies Allergy Verified 02/18/17 13:21 Home Medications: Home Meds ALPRAZolam [Alprazolam] 0.5 - 1 mg PO BID PRN 10/25/16 [History] Pantoprazole [ProTONIX] 40 mg PO ACBREAKFAST 10/25/16 [History] Potassium Chloride [Klor-Con M20] 20 meq PO TID 10/25/16 [History] Ranitidine [Zantac] 150 mg PO BID 10/25/16 [History] Sucralfate [Carafate] 1 gm PO QIDACANDBED 10/25/16 [History] Levofloxacin [Levaquin] 500 mg PO Q24H #5 tablet 10/28/16 [Rx] Past Medical History HEENT History: Reports: Cataract Cardiovascular History: Reports: Other (See Below) Other Cardiovascular History: Pt reports palpitations Gastrointestinal History: Reports: Cholelithiasis, Cirrhosis, Gastritis, GERD Genitourinary History: Reports: UTI, Recurrent 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 Has bilat foot drop. - Infectious Disease History Infectious Disease History: Reports: Chicken Pox, Other (See Below) Other Infectious Disease History: Unknown. - Past Surgical History HEENT Surgical History: Reports: Cataract Surgery, Tonsillectomy Dermatological Surgical History: Reports: Skin Graft Social & Family History - Family History Family Medical History: Noncontributory - Tobacco Use Smoking Status *Q: Never Smoker Second Hand Smoke Exposure: Yes - Caffeine Use Caffeine Use: Reports: None Other Caffeine Use: Unknown. Patient poor historian at this time. Caffeine Use Comment: Does not use caffeine regularly - Alcohol Use Days Per Week of Alcohol Use: 7 Number of Drinks Per Day: 8 Total Drinks Per Week: 56 Date of Last Drink: 02/14/17 Time of Last Drink: 17:30 - Recreational Drug Use Recreational Drug Use: No H&P Review of Systems - Review of Systems: Review Of Systems: See Below General: Reports: No Symptoms HEENT: Reports: No Symptoms Pulmonary: Reports: No Symptoms Cardiovascular: Reports: No Symptoms Gastrointestinal: Reports: Decreased Appetite, Nausea, Vomiting. Denies: Abdominal Pain, Bloody Stool, Constipation, Diarrhea, Hematochezia, Melena Genitourinary: Reports: No Symptoms Musculoskeletal: Reports: Back Pain Skin: Reports: No Symptoms Psychiatric: Reports: No Symptoms Neurological: Reports: No Symptoms Hematologic/Lymphatic: Reports: No Symptoms Immunologic: Reports: No Symptoms Exam - Exam Exam: See Below - Vital Signs Vital Signs: Last Vital Signs Temp 98.1 F 02/18/17 16:30 Pulse 126 H 02/18/17 16:30 Resp 18 02/18/17 16:30 BP 139/92 H 02/18/17 16:30 Pulse Ox 100 02/18/17 16:30 Weight: 123 lb - Exam General: Alert, Oriented, Cooperative HEENT: Conjunctiva Clear, Hearing Intact, Posterior Pharynx Clear, TMs Clear Neck: Supple, Trachea Midline Lungs: Clear to Auscultation, Normal Respiratory Effort. No: Crackles, Rales, Rhonchi Cardiovascular: Regular Rate, Regular Rhythm. No: Systolic Murmur, Diastolic Murmur GI/Abdominal Exam: Soft, No Distention, No Mass, Tender (Frontal abdomen). No: Guarding, Rigid, Rebound Back Exam: Normal Inspection, Full Range of Motion. No: CVA Tenderness (R) Extremities: Normal Inspection, Normal Range of Motion, Non-Tender, No Pedal Edema Skin: Warm, Cool Neurological: Normal Speech, Normal Tone Neuro Extensive - Mental Status: Alert, Normal Mood/Affect, Normal Cognition Neuro Extensive - Motor, Sensory, Reflexes: No: Normal Gait - Patient Data Lab Results Last 24 hrs: Laboratory Results - last 24 hr 02/18/17 02/18/17 Range/Units 15:34 15:34 Urine Color Yellow (YELLOW) Urine Appearance Slightly cloudy (CLEAR) Urine pH 5.0 (5.0-6.5) Ur Specific [place] 1.025 (1.010-1.025) Urine Protein Trace (NEGATIVE) mg/dL Urine Glucose (UA) Normal (NEGATIVE) mg/dL Urine Ketones 50 H (NEGATIVE) mg/dL Urine Occult Blood Negative (NEGATIVE) Urine Nitrite Negative (NEGATIVE) Urine Bilirubin Negative (NEGATIVE) Urine Urobilinogen Normal (NEGATIVE) mg/dL Ur Leukocyte Esterase Negative (NEGATIVE) Urine RBC 0-5 (0) Urine WBC 0-5 (0) Ur Squamous Epith Cells Few H (NS,R,O) Urine Bacteria Few H (NS) Urine Mucus Few H (NS) Urine Opiates Screen Negative (NEGATIVE) Ur Oxycodone Screen Negative (NEGATIVE) Ur Propoxyphene Screen Negative (NEGATIVE) Ur Barbituates Screen Negative (NEGATIVE) Ur Tricyclics Screen Negative (NEGATIVE) Ur Phencyclidine Scrn Negative (NEGATIVE) Ur Amphetamine Screen Negative (NEGATIVE) Urine MDMA Screen Negative (NEGATIVE) U Benzodiazepines Scrn Positive H (NEGATIVE) U Cocaine Metab Screen Negative (NEGATIVE) U Marijuana (THC) Screen Negative (NEGATIVE) Result Diagrams: 02/18/17 14:05 02/18/17 14:05 *Q Meaningful Use (ADM) - VTE *Q VTE Criteria *Q: - Stroke *Q Stroke Criteria *Q: - AMI *Q AMI Criteria *Q: - Problem List (1) Vomiting SNOMED Code(s): 156633304 ICD Code: R11.10 - VOMITING, UNSPECIFIED Status: Acute Current Visit: Yes (2) Dehydration SNOMED Code(s): 51103476 ICD Code: E86.0 - DEHYDRATION Status: Acute Priority: High Current Visit: Yes (3) Palliative care status SNOMED Code(s): 963394723 ICD Code: Z51.5 - ENCOUNTER FOR PALLIATIVE CARE Status: Acute Current Visit: Yes Problem List Initiated/Reviewed/Updated: Yes Orders Last 24hrs: Active Orders 24 hr Category Date Time Status Blood Glucose Check, Bedside [RC] QIDACANDBED Care 02/18/17 16:51 Active Oxygen Therapy [RC] PRN Care 02/18/17 16:51 Active Up With Assistance [RC] ASDIRECTED Care 02/18/17 16:51 Active VTE/DVT Education [RC] Per Unit Routine Care 02/18/17 16:51 Active Vital Signs [RC] Q4H Care 02/18/17 16:51 Active Nothing per Oral Now Diet [DIET] Diet 02/18/17 Dinner Active BASIC METABOLIC PANEL,BMP [CHEM] DAILY Lab 02/19/17 05:11 Ordered BASIC METABOLIC PANEL,BMP [CHEM] DAILY Lab 02/20/17 05:11 Ordered CBC WITH AUTO DIFF [HEME] AM Lab 02/19/17 05:11 Ordered Acetaminophen [Tylenol] Med 02/18/17 16:51 Active 650 mg PO Q4H PRN Famotidine [Pepcid] Med 02/18/17 21:00 Active 20 mg PO BID Ketorolac [Toradol] Med 02/18/17 20:00 Active 30 mg IVPUSH Q6H Magnesium Hydroxide [Milk of Magnesia] Med 02/18/17 16:51 Active 30 ml PO Q12H PRN NS + KCl 20mEq/L [Normal Saline with 20 mEq KCl] 1,000 Med 02/18/17 17:00 Active ml IV ASDIRECTED Ondansetron [Zofran] Med 02/18/17 16:51 Active 4 mg IV Q6H PRN Pantoprazole [ProTONIX] Med 02/19/17 07:30 Active 40 mg PO ACBREAKFAST Potassium Chloride [Klor-Con M20] Med 02/18/17 21:00 Active 20 meq PO TID Resuscitation Status Routine Resus Stat 02/18/17 16:51 Ordered Medication Orders Acetaminophen (Tylenol) 650 mg PO Q4H PRN PRN Reason: Pain (Mild 1-3)/fever Famotidine (Pepcid) 20 mg PO BID [facility] Potassium Chloride/Sodium Chloride (Normal Saline With 20 Meq Kcl) 1,000 mls @ 100 mls/hr IV ASDIRECTED [facility] Last Admin: 02/18/17 17:12 Dose: 100 mls/hr Ketorolac Tromethamine (Toradol) 30 mg IVPUSH Q6H [facility] Magnesium Hydroxide (Milk Of Magnesia) 30 ml PO Q12H PRN PRN Reason: Constipation Ondansetron HCl (Zofran) 4 mg IV Q6H PRN PRN Reason: Nausea/Vomiting Pantoprazole Sodium (Protonix) 40 mg PO ACBREAKFAST [facility] Potassium Chloride (Klor-Con M20) 20 meq PO TID [facility] Assessment/Plan Comment:: 1. Admit for observation. 2. IV hydration. 3. Recheck amylase in the morning. The admitting doctor did not do a CT scan of the abdomen. CLL the things go tonight and may reconsider that in the morning. 4. Diet as tolerated 5. Home medications as we figure them out. 6. Watch for signs of withdrawal. Last time she was here she did not withdraw. 7. Up with assist.
[2017-02-18] MEDS: Ketorolac 30 MG/ML SDV IVPUSH SCH (20:03)
[2017-02-18] MEDS: Famotidine 20 MG Tab PO SCH (20:04)
[2017-02-18] MEDS: Potassium Chloride 20 MEQ Tab.ER PO SCH ×2 (20:04→20:07)
[2017-02-18] MEDS ORDERED: Thiamine 200 MG/2 ML MDV IV ONE (22:26)
[2017-02-19] MEDS: Ketorolac 30 MG/ML SDV IVPUSH SCH ×3 (02:23→13:50)
[2017-02-19] MEDS ORDERED: Pantoprazole 40 MG Tab.CR PO SCH (07:30)
[2017-02-19] MEDS: Potassium Chloride 20 MEQ Tab.ER PO SCH ×2 (08:35→15:31)
[2017-02-19] MEDS: Famotidine 20 MG Tab PO SCH (08:35)
--- NOTE | 2017-02-19 10:01 | PCM.PN ---
- General Info Date of Service: 02/19/17 Admission Dx/Problem (Free Text): Patient states she's very thirsty. She states she has very little abdominal pain now. She denies diarrhea, nausea, vomiting, fevers or chills. She states her low back really continues to hurt. Since his been chronic condition for a long time. - Patient Data Vitals - Most Recent: Last Vital Signs Temp 98.8 F 02/19/17 07:45 Pulse 134 H 02/19/17 07:45 Resp 20 02/19/17 07:45 BP 110/73 02/19/17 07:45 Pulse Ox 96 02/19/17 07:45 Weight - Most Recent: 123 lb I&O - Last 24 Hours: Intake & Output 02/18/17 02/19/17 02/19/17 22:59 06:59 14:59 Intake Total 1380 Output Total 1400 950 Balance -1400 430 Lab Results Last 24 Hours: Laboratory Results - last 24 hr 02/18/17 02/18/17 02/18/17 Range/Units 15:34 15:34 17:51 WBC (4.5-12.0) X10-3/uL RBC (3.23-5.20) x10(6)uL Hgb (11.5-15.5) g/dL Hct (30.0-51.3) % MCV (80-96) fL MCH (27.7-33.6) pg MCHC (32.2-35.4) g/dL RDW (11.5-15.5) % Plt Count (125-369) X10(3)uL MPV (7.4-10.4) fL Neut % (Auto) (46-82) % Lymph % (Auto) (13-37) % [place] % (Auto) (4-12) % Eos % (Auto) (1.0-5.0) % Baso % (Auto) (0-2) % Neut # (Auto) (1.6-8.3) # Lymph # (Auto) (0.6-5.0) # [place] # (Auto) (0.0-1.3) # Eos # (Auto) (0.0-0.8) # Baso # (Auto) (0.0-0.2) # Sodium (135-145) mmol/L Potassium (3.5-5.3) mmol/L Chloride (100-110) mmol/L Carbon Dioxide (21-32) mmol/L BUN (7-18) mg/dL Creatinine (0.55-1.02) mg/dL Est Cr Clr Drug Dosing mL/min Estimated GFR (MDRD) (>60) BUN/Creatinine Ratio (9-20) Glucose (80-116) mg/dL POC Glucose 150 H (80-116) mg/dL Calcium (8.6-10.2) mg/dL Total Bilirubin (0.1-1.3) mg/dL AST (5-25) IU/L ALT (12-36) U/L Alkaline Phosphatase (56-112) IU/L Total Protein (6.0-8.0) g/dL Albumin (3.5-5.2) g/dL Globulin g/dL Albumin/Globulin Ratio Amylase (25-115) U/L Urine Color Yellow (YELLOW) Urine Appearance Slightly cloudy (CLEAR) Urine pH 5.0 (5.0-6.5) Ur Specific [place] 1.025 (1.010-1.025) Urine Protein Trace (NEGATIVE) mg/dL Urine Glucose (UA) Normal (NEGATIVE) mg/dL Urine Ketones 50 H (NEGATIVE) mg/dL Urine Occult Blood Negative (NEGATIVE) Urine Nitrite Negative (NEGATIVE) Urine Bilirubin Negative (NEGATIVE) Urine Urobilinogen Normal (NEGATIVE) mg/dL Ur Leukocyte Esterase Negative (NEGATIVE) Urine RBC 0-5 (0) Urine WBC 0-5 (0) Ur Squamous Epith Cells Few H (NS,R,O) Urine Bacteria Few H (NS) Urine Mucus Few H (NS) Urine Opiates Screen Negative (NEGATIVE) Ur Oxycodone Screen Negative (NEGATIVE) Ur Propoxyphene Screen Negative (NEGATIVE) Ur Barbituates Screen Negative (NEGATIVE) Ur Tricyclics Screen Negative (NEGATIVE) Ur Phencyclidine Scrn Negative (NEGATIVE) Ur Amphetamine Screen Negative (NEGATIVE) Urine MDMA Screen Negative (NEGATIVE) U Benzodiazepines Scrn Positive H (NEGATIVE) U Cocaine Metab Screen Negative (NEGATIVE) U Marijuana (THC) Screen Negative (NEGATIVE) 02/18/17 02/19/17 02/19/17 Range/Units 21:16 06:10 06:10 WBC 14.5 H (4.5-12.0) X10-3/uL RBC 3.91 (3.23-5.20) x10(6)uL Hgb 13.4 (11.5-15.5) g/dL Hct 38.3 (30.0-51.3) % MCV 98.0 H (80-96) fL MCH 34.2 H (27.7-33.6) pg MCHC 34.9 (32.2-35.4) g/dL RDW 12.3 (11.5-15.5) % Plt Count 145 (125-369) X10(3)uL MPV 8.4 (7.4-10.4) fL Neut % (Auto) 86.4 H (46-82) % Lymph % (Auto) 5.3 L (13-37) % [place] % (Auto) 8.0 (4-12) % Eos % (Auto) 0 L (1.0-5.0) % Baso % (Auto) 0 (0-2) % Neut # (Auto) 12.5 H (1.6-8.3) # Lymph # (Auto) 0.8 (0.6-5.0) # [place] # (Auto) 1.2 (0.0-1.3) # Eos # (Auto) 0.0 (0.0-0.8) # Baso # (Auto) 0.0 (0.0-0.2) # Sodium 141 (135-145) mmol/L Potassium 4.0 (3.5-5.3) mmol/L Chloride 109 D (100-110) mmol/L Carbon Dioxide 11 L* (21-32) mmol/L BUN 11 (7-18) mg/dL Creatinine 0.8 (0.55-1.02) mg/dL Est Cr Clr Drug Dosing 73.28 mL/min Estimated GFR (MDRD) > 60 (>60) BUN/Creatinine Ratio 13.8 (9-20) Glucose 125 H D (80-116) mg/dL POC Glucose 126 H (80-116) mg/dL Calcium 8.7 (8.6-10.2) mg/dL Total Bilirubin 1.4 H (0.1-1.3) mg/dL AST 46 H D (5-25) IU/L ALT 43 H D (12-36) U/L Alkaline Phosphatase 146 H (56-112) IU/L Total Protein 7.4 (6.0-8.0) g/dL Albumin 3.6 (3.5-5.2) g/dL Globulin 3.8 g/dL Albumin/Globulin Ratio 1.0 Amylase 184 H (25-115) U/L Urine Color (YELLOW) Urine Appearance (CLEAR) Urine pH (5.0-6.5) Ur Specific [place] (1.010-1.025) Urine Protein (NEGATIVE) mg/dL Urine Glucose (UA) (NEGATIVE) mg/dL Urine Ketones (NEGATIVE) mg/dL Urine Occult Blood (NEGATIVE) Urine Nitrite (NEGATIVE) Urine Bilirubin (NEGATIVE) Urine Urobilinogen (NEGATIVE) mg/dL Ur Leukocyte Esterase (NEGATIVE) Urine RBC (0) Urine WBC (0) Ur Squamous Epith Cells (NS,R,O) Urine Bacteria (NS) Urine Mucus (NS) Urine Opiates Screen (NEGATIVE) Ur Oxycodone Screen (NEGATIVE) Ur Propoxyphene Screen (NEGATIVE) Ur Barbituates Screen (NEGATIVE) Ur Tricyclics Screen (NEGATIVE) Ur Phencyclidine Scrn (NEGATIVE) Ur Amphetamine Screen (NEGATIVE) Urine MDMA Screen (NEGATIVE) U Benzodiazepines Scrn (NEGATIVE) U Cocaine Metab Screen (NEGATIVE) U Marijuana (THC) Screen (NEGATIVE) Med Orders - Current: Current Medications Acetaminophen (Tylenol) 650 mg PO Q4H PRN PRN Reason: Pain (Mild 1-3)/fever Famotidine (Pepcid) 20 mg PO BID [facility] Last Admin: 02/19/17 08:35 Dose: 20 mg Potassium Chloride/Sodium Chloride (Normal Saline With 20 Meq Kcl) 1,000 mls @ 125 mls/hr IV ASDIRECTED [facility] Last Admin: 02/19/17 02:38 Dose: 125 mls/hr Ketorolac Tromethamine (Toradol) 30 mg IVPUSH Q6H [facility] Last Admin: 02/19/17 07:44 Dose: 30 mg Magnesium Hydroxide (Milk Of Magnesia) 30 ml PO Q12H PRN PRN Reason: Constipation Ondansetron HCl (Zofran) 4 mg IV Q6H PRN PRN Reason: Nausea/Vomiting Last Admin: 02/19/17 02:28 Dose: 4 mg Pantoprazole Sodium (Protonix) 40 mg PO ACBREAKFAST [facility] Last Admin: 02/19/17 08:35 Dose: 40 mg Potassium Chloride (Klor-Con M20) 20 meq PO TID [facility] Last Admin: 02/19/17 08:35 Dose: 20 meq Discontinued Medications Magnesium Sulfate 2 gm/ Premix 50 mls @ 150 mls/hr IV ONETIME ONE Stop: 02/18/17 14:05 Last Admin: 02/18/17 14:11 Dose: 150 mls/hr Sodium Chloride (Normal Saline) 1,000 mls @ 999 mls/hr IV .BOLUS ONE Stop: 02/18/17 14:45 Last Admin: 02/18/17 13:49 Dose: 999 mls/hr Sodium Chloride (Normal Saline) 1,000 mls @ 999 mls/hr IV .BOLUS ONE Stop: 02/18/17 14:51 Last Admin: 02/18/17 15:12 Dose: 999 mls/hr Potassium Chloride/Sodium Chloride (Normal Saline With 20 Meq Kcl) 1,000 mls @ 100 mls/hr IV ASDIRECTED [facility] Last Admin: 02/18/17 17:12 Dose: 100 mls/hr Ketorolac Tromethamine (Toradol) 30 mg IVPUSH ONETIME ONE Stop: 02/18/17 13:47 Last Admin: 02/18/17 14:08 Dose: 30 mg Ondansetron HCl (Zofran) 4 mg IVPUSH ONETIME ONE Stop: 02/18/17 13:47 Last Admin: 02/18/17 14:08 Dose: 4 mg Thiamine HCl (Vitamin B-1) 100 mg IV ONETIME ONE Stop: 02/18/17 22:27 Last Admin: 02/18/17 22:56 Dose: 100 mg - Exam General: Alert, Oriented, Cooperative Lungs: Clear to Auscultation, Normal Respiratory Effort Cardiovascular: Regular Rate, Regular Rhythm, No Murmurs GI/Abdominal Exam: Soft, Non-Tender, No Distention, No Mass Extremities: No Pedal Edema Skin: Warm, Dry, Intact Psy/Mental Status: Alert, Normal Affect, Normal Mood - Problem List & Annotations (1) Palliative care status SNOMED Code(s): 226839548 Code(s): Z51.5 - ENCOUNTER FOR PALLIATIVE CARE Status: Acute Current Visit: Yes (2) Chronic pancreatitis due to acute alcohol intoxication SNOMED Code(s): 517036581 Code(s): K86.0 - ALCOHOL-INDUCED CHRONIC PANCREATITIS Status: Acute Current Visit: Yes (3) Alcohol abuse SNOMED Code(s): 59819928 Code(s): F10.10 - ALCOHOL ABUSE, UNCOMPLICATED Status: Acute Current Visit: Yes (4) Chronic low back pain SNOMED Code(s): 820464168 Code(s): M54.5 - LOW BACK PAIN; G89.29 - OTHER CHRONIC PAIN Status: Acute Current Visit: Yes - Problem List Review Problem List Initiated/Reviewed/Updated: Yes - My Orders Last 24 Hours: My Active Orders 02/18/17 22:30 NS + KCl 20mEq/L [Normal Saline with 20 mEq KCl] 1,000 ml IV ASDIRECTED - Plan Plan:: 1. Patient's insistent about having something to drink to the point where she wants to leave. So start some clear liquids today. 2. MRI low back 3. Discussed her alcohol behavior and the effects on her social life and the effects on her liver and pancreas. I told her that this will end her life if she continues to use alcohol. I again offered alcohol treatment. She does not want alcohol treatment. She understands that alcohol is affecting her liver and pancreas but does not want to change at this time. 4. Labs in a.m.
[2017-02-19] MEDS: NS + KCl 20mEq/L 1,000 ML IV SCH ×2 (10:39→18:51)
[2017-02-19] MEDS: LORazepam 2 MG/ML MDV IVPUSH PRN ×2 (13:26→20:22)
--- NOTE | 2017-02-19 16:53 | PCM.SN ---
- Free Text/Narrative Note: Patient refused MRI of the spine.
[2017-02-19] MEDS ORDERED: Aspirin 81 MG Tab.Chew PO ONE (18:57)
[2017-02-19] MEDS ORDERED: Heparin Sodium 5,000 Units/ML Vial IVPUSH ONE (19:04)
[2017-02-19] MEDS ORDERED: Magnesium Sulfate/Water 2 GM in Premix Bag 1 BAG IV ONE (19:07)
[2017-02-19] MEDS ORDERED: Heparin Sodium/0.45% NaCl 25,000 UNITS/500 ML BAG IV SCH (19:15)
[2017-02-19] MEDS ORDERED: Magnesium Sulfate/Water 50 ML ONE ×2 (19:28→19:36)
[2017-02-19] MEDS ORDERED: Ticagrelor 90 MG Tab PO ONE (19:30)
--- NOTE | 2017-02-19 19:37 | PCM.DCSUM1 ---
Discharge Summary - Hospital Course HPI Initial Comments: pt admitted with 2d h/o nausea, vomiting and upper abd pain. She was dx'ed with recurrent acute pancreatitis d/t her h/o alcoholism and continued drinking. Initial amylase negative although repeat amylase elevated. Initial lactic acid 3.4. Pt with ST 133 on admission that dec'd to 120 after IVF. Abdominal pain improved and she was advanced from NPO to clear liquids today which she tolerated well. This afternoon she had c/o midsternal CP x 30 minutes, EKG showed new t-wave inversion in anterior leads without ST elevation or depression c/w admission. Troponin 2.7 this PM, increased form <0.017 on admission. Pt give ASA 324 mg, heparin 60 units/kg bolus and 12 units/kg/hr drip, Brilanta 180 mg PO and Mg 2 gm IV (for Mg 1.7). Beta ike and nitrates not given for SBP 105, altho pt remained symptom free this evening. Abd pain persisted altho much improved. Pt and agreed to transfer to [facility], pt tearful, understood she had a NSTEMI and was at risk for extension of the AK. D/w Dr Mg hospitalist and Dr Mandel finance attorney at [facility] who accepted pt in transfer. CK mildly inc'd at 168, CK-MB inc'd at 11.6. - Discharge Data Discharge Date: 02/19/17 Discharge Disposition: DC/Tfer to Acute Hospital 02 Condition: Fair - Discharge Diagnosis/Problem(s) (1) NSTEMI (non-ST elevated myocardial infarction) SNOMED Code(s): 428806900 ICD Code: I21.4 - NON-ST ELEVATION (NSTEMI) MYOCARDIAL INFARCTION Status: Acute (2) Anterior T wave inversion SNOMED Code(s): 077404612 ICD Code: R94.31 - ABNORMAL ELECTROCARDIOGRAM [ECG] [EKG] Status: Acute (3) Elevated troponin SNOMED Code(s): 647789695, 859923550 ICD Code: R74.8 - ABNORMAL LEVELS OF OTHER SERUM ENZYMES Status: Acute (4) Acute on chronic pancreatitis SNOMED Code(s): 770647676 ICD Code: K85.90 - ACUTE PANCREATITIS WITHOUT NECROSIS OR INFECTION, UNSP; K86.1 - OTHER CHRONIC PANCREATITIS Status: Acute (5) Alcoholism SNOMED Code(s): 7269072 ICD Code: F10.20 - ALCOHOL DEPENDENCE, UNCOMPLICATED Status: Acute - Patient Instructions Diet: Clear Liquid Diet - Discharge Plan Home Medications: Home Meds ALPRAZolam [Alprazolam] 1 mg PO DAILY PRN 10/25/16 [History] Pantoprazole [ProTONIX] 40 mg PO ACBREAKFAST 10/25/16 [History] Potassium Chloride [Klor-Con M20] 20 meq PO TID 10/25/16 [History] Ranitidine [Zantac] 150 mg PO BID 10/25/16 [History] Sucralfate [Carafate] 1 gm PO QIDACANDBED 10/25/16 [History] Forms: ED Department Discharge Referrals: Rocco Gonsales MD [Primary Care Provider] - - Discharge Summary/Plan Comment DC Time >30 min.: Yes - Patient Data Vitals - Most Recent: Last Vital Signs Temp 38.0 C 02/19/17 11:00 Pulse 115 H 02/19/17 11:00 Resp 20 02/19/17 11:00 BP 104/71 02/19/17 11:00 Pulse Ox 98 02/19/17 11:00 Weight - Most Recent: 55.792 kg I&O - Last 24 hours: Intake & Output 02/19/17 02/19/17 02/19/17 06:59 14:59 22:59 Intake Total 1380 1851 Output Total 950 Balance 430 1851 Lab Results - Last 24 hrs: Laboratory Results - last 24 hr 02/18/17 02/19/17 02/19/17 Range/Units 21:16 06:10 06:10 WBC 14.5 H (4.5-12.0) X10-3/uL RBC 3.91 (3.23-5.20) x10(6)uL Hgb 13.4 (11.5-15.5) g/dL Hct 38.3 (30.0-51.3) % MCV 98.0 H (80-96) fL MCH 34.2 H (27.7-33.6) pg MCHC 34.9 (32.2-35.4) g/dL RDW 12.3 (11.5-15.5) % Plt Count 145 (125-369) X10(3)uL MPV 8.4 (7.4-10.4) fL Neut % (Auto) 86.4 H (46-82) % Lymph % (Auto) 5.3 L (13-37) % Robertson % (Auto) 8.0 (4-12) % Eos % (Auto) 0 L (1.0-5.0) % Baso % (Auto) 0 (0-2) % Neut # (Auto) 12.5 H (1.6-8.3) # Lymph # (Auto) 0.8 (0.6-5.0) # Robertson # (Auto) 1.2 (0.0-1.3) # Eos # (Auto) 0.0 (0.0-0.8) # Baso # (Auto) 0.0 (0.0-0.2) # Sodium 141 (135-145) mmol/L Potassium 4.0 (3.5-5.3) mmol/L Chloride 109 D (100-110) mmol/L Carbon Dioxide 11 L* (21-32) mmol/L BUN 11 (7-18) mg/dL Creatinine 0.8 (0.55-1.02) mg/dL Est Cr Clr Drug Dosing 73.28 mL/min Estimated GFR (MDRD) > 60 (>60) BUN/Creatinine Ratio 13.8 (9-20) Glucose 125 H D (80-116) mg/dL POC Glucose 126 H (80-116) mg/dL Calcium 8.7 (8.6-10.2) mg/dL Magnesium (1.8-2.5) mg/dL Total Bilirubin 1.4 H (0.1-1.3) mg/dL AST 46 H D (5-25) IU/L ALT 43 H D (12-36) U/L Alkaline Phosphatase 146 H (56-112) IU/L Troponin I (<0.017-0.056) ng/mL Total Protein 7.4 (6.0-8.0) g/dL Albumin 3.6 (3.5-5.2) g/dL Globulin 3.8 g/dL Albumin/Globulin Ratio 1.0 Amylase 184 H (25-115) U/L 02/19/17 02/19/17 02/19/17 Range/Units 11:04 17:35 17:35 WBC (4.5-12.0) X10-3/uL RBC (3.23-5.20) x10(6)uL Hgb (11.5-15.5) g/dL Hct (30.0-51.3) % MCV (80-96) fL MCH (27.7-33.6) pg MCHC (32.2-35.4) g/dL RDW (11.5-15.5) % Plt Count (125-369) X10(3)uL MPV (7.4-10.4) fL Neut % (Auto) (46-82) % Lymph % (Auto) (13-37) % Robertson % (Auto) (4-12) % Eos % (Auto) (1.0-5.0) % Baso % (Auto) (0-2) % Neut # (Auto) (1.6-8.3) # Lymph # (Auto) (0.6-5.0) # Robertson # (Auto) (0.0-1.3) # Eos # (Auto) (0.0-0.8) # Baso # (Auto) (0.0-0.2) # Sodium (135-145) mmol/L Potassium (3.5-5.3) mmol/L Chloride (100-110) mmol/L Carbon Dioxide (21-32) mmol/L BUN (7-18) mg/dL Creatinine (0.55-1.02) mg/dL Est Cr Clr Drug Dosing mL/min Estimated GFR (MDRD) (>60) BUN/Creatinine Ratio (9-20) Glucose (80-116) mg/dL POC Glucose 106 (80-116) mg/dL Calcium (8.6-10.2) mg/dL Magnesium 1.7 L (1.8-2.5) mg/dL Total Bilirubin (0.1-1.3) mg/dL AST (5-25) IU/L ALT (12-36) U/L Alkaline Phosphatase (56-112) IU/L Troponin I 2.703 H* (<0.017-0.056) ng/mL Total Protein (6.0-8.0) g/dL Albumin (3.5-5.2) g/dL Globulin g/dL Albumin/Globulin Ratio Amylase (25-115) U/L Med Orders - Current: Current Medications Acetaminophen (Tylenol) 650 mg PO Q4H PRN PRN Reason: Pain (Mild 1-3)/fever Last Admin: 02/19/17 11:54 Dose: 650 mg Famotidine (Pepcid) 20 mg PO BID [facility] Last Admin: 02/19/17 08:35 Dose: 20 mg Potassium Chloride/Sodium Chloride (Normal Saline With 20 Meq Kcl) 1,000 mls @ 125 mls/hr IV Q8H [facility] Last Admin: 02/19/17 18:51 Dose: 125 mls/hr Heparin Sodium/Sodium Chloride (Heparin 25,000 Units In 1/2 Ns 500 Ml) 25,000 units in 500 mls @ 13.44 mls/hr IV TITRATE ERICH; 12 UNITS/KG/HR PRN Reason: Protocol Lorazepam (Ativan) 0.5 mg IVPUSH Q6H PRN PRN Reason: Anxiety Last Admin: 02/19/17 13:26 Dose: 0.5 mg Magnesium Hydroxide (Milk Of Magnesia) 30 ml PO Q12H PRN PRN Reason: Constipation Ondansetron HCl (Zofran) 4 mg IV Q6H PRN PRN Reason: Nausea/Vomiting Last Admin: 02/19/17 02:28 Dose: 4 mg Pantoprazole Sodium (Protonix) 40 mg PO ACBREAKFAST [facility] Last Admin: 02/19/17 08:35 Dose: 40 mg Potassium Chloride (Klor-Con M20) 20 meq PO TID [facility] Last Admin: 02/19/17 15:31 Dose: 20 meq Ticagrelor (Brilinta) 180 mg PO ONETIME ONE Stop: 02/19/17 19:31 Discontinued Medications Aspirin (Aspirin) 324 mg PO ONETIME ONE Stop: 02/19/17 18:58 Heparin Sodium (Porcine) (Heparin Sodium) 3,300 units IVPUSH ONETIME ONE Stop: 02/19/17 19:05 Magnesium Sulfate 2 gm/ Premix 50 mls @ 150 mls/hr IV ONETIME ONE Stop: 02/18/17 14:05 Last Admin: 02/18/17 14:11 Dose: 150 mls/hr Sodium Chloride (Normal Saline) 1,000 mls @ 999 mls/hr IV .BOLUS ONE Stop: 02/18/17 14:45 Last Admin: 02/18/17 13:49 Dose: 999 mls/hr Sodium Chloride (Normal Saline) 1,000 mls @ 999 mls/hr IV .BOLUS ONE Stop: 02/18/17 14:51 Last Admin: 02/18/17 15:12 Dose: 999 mls/hr Potassium Chloride/Sodium Chloride (Normal Saline With 20 Meq Kcl) 1,000 mls @ 100 mls/hr IV ASDIRECTED [facility] Last Admin: 02/18/17 17:12 Dose: 100 mls/hr Potassium Chloride/Sodium Chloride (Normal Saline With 20 Meq Kcl) 1,000 mls @ 125 mls/hr IV ASDIRECTED [facility] Last Admin: 02/19/17 02:38 Dose: 125 mls/hr Magnesium Sulfate 2 gm/ Premix 50 mls @ 150 mls/hr IV ONETIME ONE Stop: 02/19/17 19:26 Ketorolac Tromethamine (Toradol) 30 mg IVPUSH ONETIME ONE Stop: 02/18/17 13:47 Last Admin: 02/18/17 14:08 Dose: 30 mg Ketorolac Tromethamine (Toradol) 30 mg IVPUSH Q6H [facility] Last Admin: 02/19/17 13:50 Dose: 30 mg Ondansetron HCl (Zofran) 4 mg IVPUSH ONETIME ONE Stop: 02/18/17 13:47 Last Admin: 02/18/17 14:08 Dose: 4 mg Thiamine HCl (Vitamin B-1) 100 mg IV ONETIME ONE Stop: 02/18/17 22:27 Last Admin: 02/18/17 22:56 Dose: 100 mg *Q Meaningful Use (DIS) - VTE *Q VTE Criteria *Q: - Stroke *Q Stroke Criteria *Q: - AMI *Q AMI Criteria *Q:
[2017-02-19] MEDS ORDERED: Aspirin 81 MG Tab.Chew ONE (19:55)
[2017-02-19] MEDS ORDERED: Sodium Chloride 0.9% 10 ML Syringe FLUSH PRN (20:04)
[2017-02-19] MEDS ORDERED: Sodium Chloride 0.9% 10 ML SDV FLUSH SCH (20:30)
[2017-02-19 20:38] VITALS: BP 83/55
== END 2017-02-19 21:00 | DRG 438 ==
LOC: FB.ED 13:02 → FB.MS 15:17
PROVIDERS: ADMIT Emergency Medicine; ATTEND Family Medicine
DX: K85.20 Alcohol induced acute pancreatitis without necrosis or infection (principal); K85.90 Acute pancreatitis without necrosis or infection, unspecified; I21.4 Non-ST elevation (NSTEMI) myocardial infarction; E87.2 Acidosis; R11.2 Nausea with vomiting, unspecified; K86.0 Alcohol-induced chronic pancreatitis; F10.20 Alcohol dependence, uncomplicated; E86.0 Dehydration; Z51.5 Encounter for palliative care; R94.31 Abnormal electrocardiogram [ECG] [EKG]; K21.9 Gastro-esophageal reflux disease without esophagitis; M54.5 Low back pain; G89.29 Other chronic pain; F41.9 Anxiety disorder, unspecified; Z87.440 Personal history of urinary (tract) infections; M21.372 Foot drop, left foot; M21.371 Foot drop, right foot; Z53.29 Procedure and treatment not carried out because of patient's decision for other reasons
CPT/HCPCS: 80053; 82150; 83605; 83690; 83735; 84484; 85025; 86140; 93005; 96361; 96365; 96375; 99284; J1885; J2405; J3475; J7040 ×2; 36415; 80305; 81001; 82550; 82553; 82962; 85610; A9270-GY; J1644; J2060; J3411; J3480; J7050

== ENCOUNTER 2017-04-24 15:42 | Inpatient (IN) | payer MEDICAID ==
[2017-04-24] MEDS ORDERED: Sodium Chloride 0.9% 1,000 ML IV SCH (16:45)
[2017-04-24] MEDS ORDERED: HYDROmorphone 2 MG/ML SDV IVPUSH ONE (17:04)
[2017-04-24] MEDS ORDERED: Pantoprazole 80 MG in Sodium Chloride 0.9% 100 ML IV ONE (17:05)
[2017-04-24] MEDS ORDERED: Ondansetron 4 MG/2 ML SDV IVPUSH ONE (17:06)
[2017-04-24] MEDS ORDERED: Iopamidol 755 Mg/ML 75 ML Bottle IV ONE (17:41)
[2017-04-24] MEDS ORDERED: HYDROmorphone 2 MG/ML SDV IVPUSH PRN (18:32)
[2017-04-24] MEDS ORDERED: LORazepam 2 MG/ML MDV IV PRN (18:32)
[2017-04-24] MEDS ORDERED: Promethazine 25 MG Tab PO PRN (18:32)
[2017-04-24] MEDS ORDERED: Acetaminophen 325 MG Tab PO PRN (18:32)
[2017-04-24] MEDS ORDERED: Nitroglycerin 0.4 MG Tab.SL SL PRN (18:40)
[2017-04-24] MEDS ORDERED: traMADol 50 MG Tab PO PRN (18:40)
[2017-04-24] MEDS: Sodium Chloride 0.9% 1,000 ML IV SCH ×2 (18:50→23:57)
[2017-04-24] MEDS ORDERED: ALPRAZolam 1 MG Tab PO PRN (19:04)
[2017-04-24] MEDS ORDERED: hydrOXYzine HCl 25 MG Tab PO PRN (19:05)
[2017-04-24] MEDS ORDERED: Enoxaparin 40 MG/0.4 ML Syringe SUBCUT SCH (20:00)
[2017-04-24] MEDS ORDERED: Sucralfate 1 GM Tab PO SCH (21:00)
[2017-04-24] MEDS ORDERED: Metoprolol Succinate 50 MG Tab.ER PO SCH (21:00)
[2017-04-24] MEDS ORDERED: atorvaSTATin 20 MG Tab PO SCH (21:00)
[2017-04-25] MEDS ORDERED: Metoprolol Succinate 25 MG Tab.ER PO SCH (01:30)
[2017-04-25] MEDS: Sodium Chloride 0.9% 1,000 ML IV SCH ×3 (01:41→10:08)
[2017-04-25] MEDS ORDERED: Aspirin 81 MG Tab.Chew PO SCH (09:00)
[2017-04-25] MEDS ORDERED: Folic Acid 1 MG Tab PO SCH (09:00)
[2017-04-25] MEDS ORDERED: Potassium Chloride 20 MEQ Packet PO SCH (09:00)
--- NOTE | 2017-04-25 09:11 | CT ---
INDICATION: Vomiting, secondary EtOH, peritonitis, question pancreatitis. CT ABDOMEN AND PELVIS WITH CONTRAST: Spiral 2.5-mm axial sections were obtained through the abdomen and pelvis with 65 mL [id number] at 1 mL per second due to limited IV access. Sagittal and coronal reconstructions were obtained. The examination was obtained 04/24/2017 and is compared with 2016. Total Exam DLP = 466.39 mGy-cm. An active infiltrate or effusion was not identified in the lower lung root and pleural spaces visualized. The heart appeared normal in size. There appears to be slightly increased gravel - calculi in the gallbladder, which is mildly prominent in size, but appears similar to the previous examination with the maximum diameter within normal limits at 79 mm. Decreased density of the liver is noted, compatible with diffuse fatty infiltration, and appears more prominent than on the previous examination. The common bile duct did not appear to be enlarged. The pancreas appears to be somewhat fatty replaced without evidence of pancreatitis or a definite mass. It is diminutive in size. Previously, there was evidence of pancreatitis and there apparently has been necrosis of the pancreas with loss of volume of the pancreas. What appears to be a tiny pseudocyst is noted along the cranial aspect of the distal body - tail area of the pancreas, seen on axial image #51. This is decreased in size, significantly compared with the previous examination, and as mentioned above, there is no finding to suggest pancreatitis of any significance at this time. Some residual fat stranding near the tail of the pancreas likely is simply on the basis of scarring. It is difficult to entirely exclude a minimal degree of pancreatitis in that area. However, the appearance is much improved compared with the previous examination and may simply be on a minimal scarring basis. The presence of a fixed hiatal hernia of small size is suggested. The spleen appeared normal. The adrenal glands, and for the most part, kidneys, appear to be normal. No retroperitoneal masses were identified. There are gas bubbles in the urinary bladder which could be on the basis of recent instrumentation, such as catheter placement or possibly be secondary to a gas-forming organism infection. This should be correlated clinically. What appears to be the appendix is noted on coronal images #36 through #44 and measured slightly prominent in size at 8.8 mm. However, no definite wall thickening or periappendiceal fat stranding was identified to strongly suggest appendicitis. There appears to be some thickening of the wall and possibly edema in the wall of the transverse and descending, as well as a portion of the sigmoid colon. This raises question of a process such as Crohn's disease or possibly ulcerative colitis and should be correlated clinically. No evidence of bowel obstruction or free air was identified. A tiny umbilical hernia is noted, including only fat. It is unchanged from the previous examination. IMPRESSION: 1. Cholelithiasis. No definite cholecystitis - correlate clinically. 2. Fatty infiltration of the liver. 3. Burned out pancreas decreased in size compared with the previous studies, with a tiny pseudocyst and some very minimal residual fat stranding at the tail of the pancreas. No definite evidence of pancreatitis, but difficult to entirely exclude a very minimal degree of pancreatitis at the tail of the pancreas. 4. Suggestion of thickening of the wall of the colon, which may be on the basis of colitis and should be correlated clinically. Crohn's disease would be a consideration. Ulcerative colitis is felt to be less likely, as the rectosigmoid and rectum were unremarkable. 5. Gas bubbles in the urinary bladder of questionable etiology. If not secondary to instrumentation - iatrogenic - entertain the possibility of gas- forming organism infection. 6. Tiny stable umbilical hernia, including only fat. 7. Previous pancreatitis with phlegmon has virtually completely resolved, compared with the previous study of 2017. CT PELVIS: Examination of the pelvis was obtained by CT, as noted above. There is an appearance suggesting some thickening of the wall of the colon and possibly some edema in that wall in a portion of the sigmoid and descending colon. Urinary bladder showed evidence of gas bubbles within it, which should be correlated clinically. A few phleboliths are noted. No definite evidence of bowel obstruction or free air was seen. Report was called to Dr. Meier at 1818 hours, 04/24/2017. [facility]
[2017-04-25] MEDS ORDERED: Metoprolol Tartrate 25 MG Tab PO SCH (11:30)
--- NOTE | 2017-04-25 13:12 | PCM.HP ---
H&P History of Present Illness - General Date of Service: 04/25/17 Admit Problem/Dx: Admission Diagnosis/Problem Admission Diagnosis/Problem Dehydration Source of Information: Patient, Family - History of Present Illness Initial Comments - Free Text/Narative: 52-year-old female presented for acute debility and malaise, decreased oral intake secondary to nausea and vomiting with some abdominal pain. Long-standing history of alcoholism and acute alcohol abuse. She's been abstinent from alcohol for a week. Vomiting has been nonbilious. Denies hematemesis. She not had any headaches or falls. Minimally ambulatory but does admit to weakness in the lower extremities. She's not had dysuria or pelvic pain. She denies any flank pain, joint swelling, rash, unusual headache, vision changes, difficulty chewing swallowing or aspiration. She's been ongoing for several days prior to admission. Because she wasn't eating or drinking and becoming weaker her brought her in for evaluation. whole abdomen Pain Score (Numeric/FACES): 9 - Related Data Allergies/Adverse Reactions: Allergies Allergy/AdvReac Type Severity Reaction Status Date / Time No Known Allergies Allergy Verified 04/24/17 18:48 Home Medications: Home Meds Pantoprazole [ProTONIX] 40 mg PO ACBREAKFAST 10/25/16 [History] Sucralfate [Carafate] 1 gm PO QIDACANDBED 10/25/16 [History] Aspirin 81 mg PO DAILY 04/24/17 [History] Folic Acid 1 mg PO DAILY 04/24/17 [History] Nitroglycerin [Nitrostat] 0.4 mg SL ASDIRECTED PRN 04/24/17 [History] Potassium Chloride [Klor-Con] 20 meq PO DAILY 04/24/17 [History] atorvaSTATin [Lipitor] 20 mg PO BEDTIME 04/24/17 [History] hydrOXYzine Pamoate [Hydroxyzine Pamoate] 25 mg PO TID PRN 04/24/17 [History] traMADol [Ultram] 50 mg PO TID PRN 04/24/17 [History] Metoprolol Tartrate 25 mg PO BID 04/25/17 [History] Promethazine [Phenergan] 25 mg PO Q6H PRN #20 tablet 04/25/17 [Rx] Past Medical History HEENT History: Reports: Cataract Cardiovascular History: Reports: Angina, NM, Other (See Below) Other Cardiovascular History: Pt reports palpitations Gastrointestinal History: Reports: Cholelithiasis, Cirrhosis, Gastritis, GERD Genitourinary History: Reports: UTI, Recurrent 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 Has bilat foot drop. - Infectious Disease History Infectious Disease History: Reports: Chicken Pox Other Infectious Disease History: Unknown. - Past Surgical History HEENT Surgical History: Reports: Cataract Surgery, Tonsillectomy GI Surgical History: Reports: Appendectomy Female Surgical History: Reports: Other (See Below) Other Female Surgeries/Procedures: ? d and Dermatological Surgical History: Reports: Skin Graft Social & Family History - Family History Family Medical History: Unobtainable - Tobacco Use Smoking Status *Q: Never Smoker Second Hand Smoke Exposure: No - Caffeine Use Caffeine Use: Reports: None Other Caffeine Use: Unknown. Patient poor historian at this time. Caffeine Use Comment: Does not use caffeine regularly - Alcohol Use Days Per Week of Alcohol Use: 7 Number of Drinks Per Day: 2 Total Drinks Per Week: 14 Date of Last Drink: 04/21/17 Time of Last Drink: 18:00 - Recreational Drug Use Recreational Drug Use: No H&P Review of Systems - Review of Systems: Review Of Systems: ROS reveals no pertinent complaints other than HPI. Exam - Exam Exam: See Below - Vital Signs Vital Signs: Last Vital Signs Temp 99 F 04/25/17 08:00 Pulse 100 04/25/17 12:01 Resp 20 04/25/17 08:00 BP 111/74 04/25/17 12:01 Pulse Ox 100 04/25/17 08:00 Weight: 60.509 kg - Exam Physical Exam Comments:: General: Reports: Alert, Oriented, Cooperative, No Acute Distress HEENT: Reports: Mucous Membr. Moist/[place] Lungs: Reports: Clear to Auscultation, Normal Respiratory Effort Cardiovascular: Reports: Regular Rate, Regular Rhythm GI/Abdominal Exam: Normal Bowel Sounds, Non-Tender. No: Guarding Back Exam: Denies: Vertebral Tenderness Extremities: No: No Pedal Edema Skin: Reports: Warm, Dry Neurological: Reports: No New Focal Deficit, Strength Equal Bilateral, Other ( Bilateral muscle wasting lower extremities. She ambulates rarely but does use a walker at home as needed. She is always assisted by her .). Denies: Normal Gait, Normal Speech Psy/Mental Status: Reports: Alert, Normal Affect, Anxious. Denies: Agitated, Hallucinations, Withdrawal Symptoms - Patient Data Lab Results Last 24 hrs: Laboratory Results - last 24 hr 04/24/17 04/25/17 04/25/17 Range/Units 18:35 06:45 06:45 WBC 9.6 (4.5-12.0) X10-3/uL RBC 3.79 (3.23-5.20) x10(6)uL Hgb 12.7 (11.5-15.5) g/dL Hct 37.4 (30.0-51.3) % MCV 98.6 H (80-96) fL MCH 33.5 (27.7-33.6) pg MCHC 34.0 (32.2-35.4) g/dL RDW 12.0 (11.5-15.5) % Plt Count 118 L (125-369) X10(3)uL MPV 8.5 (7.4-10.4) fL Neut % (Auto) 71.0 (46-82) % Lymph % (Auto) 14.5 (13-37) % [place] % (Auto) 12.0 (4-12) % Eos % (Auto) 0 L (1.0-5.0) % Baso % (Auto) 2 (0-2) % Neut # (Auto) 6.9 (1.6-8.3) # Lymph # (Auto) 1.4 (0.6-5.0) # [place] # (Auto) 1.1 (0.0-1.3) # Eos # (Auto) 0.0 (0.0-0.8) # Baso # (Auto) 0.2 (0.0-0.2) # Sodium 142 (135-145) mmol/L Potassium 3.3 L (3.5-5.3) mmol/L Chloride 106 D (100-110) mmol/L Carbon Dioxide 16 L (21-32) mmol/L BUN 9 (7-18) mg/dL Creatinine 0.8 (0.55-1.02) mg/dL Est Cr Clr Drug Dosing 76.37 mL/min Estimated GFR (MDRD) > 60 (>60) BUN/Creatinine Ratio 11.3 (9-20) Glucose 80 D (80-116) mg/dL Calcium 8.4 L (8.6-10.2) mg/dL Total Bilirubin 1.5 H (0.1-1.3) mg/dL AST 56 H D (5-25) IU/L ALT 45 H D (12-36) U/L Alkaline Phosphatase 132 H (56-112) IU/L Total Protein 7.5 (6.0-8.0) g/dL Albumin 3.9 (3.5-5.2) g/dL Globulin 3.6 g/dL Albumin/Globulin Ratio 1.1 Urine Color Yellow (YELLOW) Urine Appearance Clear (CLEAR) Urine pH 5.0 (5.0-6.5) Ur Specific [place] 1.015 (1.010-1.025) Urine Protein 500 H (NEGATIVE) mg/dL Urine Glucose (UA) Normal (NEGATIVE) mg/dL Urine Ketones 150 H (NEGATIVE) mg/dL Urine Occult Blood Moderate H (NEGATIVE) Urine Nitrite Negative (NEGATIVE) Urine Bilirubin Small H (NEGATIVE) Urine Urobilinogen Normal (NEGATIVE) mg/dL Ur Leukocyte Esterase Negative (NEGATIVE) Urine RBC 5-10 (0) Urine WBC 0-5 (0) Ur Squamous Epith Cells Moderate H (NS,R,O) Urine Bacteria Few H (NS) Result Diagrams: 04/25/17 06:45 04/25/17 06:45 Imaging Impressions Last 24 hrs: CT scan was negative for acute pancreatitis nor cholecystitis. There was some evidence of chronic liver disease and fatty infiltration. Some mild colonic thickening without free air or fluid in the pelvis. Chronic changes of the pancreas were noted. Gallstones were noted in the gallbladder without evidence of obstruction or biliary dilatation. Please see radiology report *Q Meaningful Use (ADM) - VTE *Q VTE Criteria *Q: - Stroke *Q Stroke Criteria *Q: - AMI *Q AMI Criteria *Q: - Problem List (1) Moderate dehydration SNOMED Code(s): 1384381798079 ICD Code: E86.0 - DEHYDRATION Status: Acute Current Visit: Yes (2) Acute alcoholic hepatitis SNOMED Code(s): 6722169 ICD Code: K70.10 - ALCOHOLIC HEPATITIS WITHOUT ASCITES Status: Acute Current Visit: No (3) Vomiting SNOMED Code(s): 655209482 ICD Code: R11.10 - VOMITING, UNSPECIFIED Status: Acute Current Visit: No Qualifiers: Nausea presence: with nausea (4) Acute on chronic alteration in mental status SNOMED Code(s): 877420298 ICD Code: R41.82 - ALTERED MENTAL STATUS, UNSPECIFIED Status: Acute Current Visit: No (5) Alcohol abuse SNOMED Code(s): 28679375 ICD Code: F10.10 - ALCOHOL ABUSE, UNCOMPLICATED Status: Acute Current Visit: No (6) Alcoholism SNOMED Code(s): 4958666 ICD Code: F10.20 - ALCOHOL DEPENDENCE, UNCOMPLICATED Status: Acute Current Visit: No (7) Palliative care status SNOMED Code(s): 733197458 ICD Code: Z51.5 - ENCOUNTER FOR PALLIATIVE CARE Status: Acute Current Visit: No (8) Malnutrition compromising bodily function SNOMED Code(s): 0060552 ICD Code: E46 - UNSPECIFIED PROTEIN-CALORIE MALNUTRITION Status: Chronic Priority: High Current Visit: No (9) Mobility impaired SNOMED Code(s): 94175860 ICD Code: Z74.09 - OTHER REDUCED MOBILITY Status: Chronic Current Visit: No Problem List Initiated/Reviewed/Updated: Yes Orders Last 24hrs: Active Orders 24 hr Category Date Time Status ALPRAZolam [Xanax] Med 04/24/17 19:04 Active 1 mg PO DAILY PRN Metoprolol Tartrate [Lopressor] Med 04/25/17 11:30 Active 25 mg PO BID Nitroglycerin [Nitrostat] Med 04/24/17 18:40 Active 0.4 mg SL ASDIRECTED PRN Potassium Chloride [Klor-Con] Med 04/25/17 09:00 Active 20 meq PO DAILY Sodium Chloride 0.9% [Normal Saline] 1,000 ml Med 04/24/17 18:45 Active IV ASDIRECTED hydrOXYzine HCl [Atarax] Med 04/24/17 19:05 Active 25 mg PO TID PRN Medication Orders Acetaminophen (Tylenol) 650 mg PO Q4H PRN PRN Reason: Pain (Mild 1-3)/fever Alprazolam (Xanax) 1 mg PO DAILY PRN PRN Reason: Anxiety Last Admin: 04/24/17 20:41 Dose: 1 mg Enoxaparin Sodium (Lovenox) 40 mg SUBCUT Q24H [facility] Last Admin: 04/24/17 20:40 Dose: 40 mg Hydromorphone HCl (Dilaudid) 0.5 mg IVPUSH Q2H PRN PRN Reason: Pain (severe 7-10) Hydroxyzine HCl (Atarax) 25 mg PO TID PRN PRN Reason: Anxiety Sodium Chloride (Normal Saline) 1,000 mls @ 999 mls/hr IV ASDIRECTED [facility] Last Admin: 04/24/17 16:53 Dose: 999 mls/hr Sodium Chloride (Normal Saline) 1,000 mls @ 200 mls/hr IV ASDIRECTED [facility] Last Admin: 04/25/17 10:08 Dose: 200 mls/hr Infusion: 04/25/17 09:59 Dose: 200 mls/hr Admin: 04/25/17 04:59 Dose: 200 mls/hr Infusion: 04/25/17 04:59 Dose: 200 mls/hr Admin: 04/25/17 01:41 Dose: 200 mls/hr Infusion: 04/25/17 01:41 Dose: 200 mls/hr Admin: 04/24/17 23:57 Dose: 200 mls/hr Infusion: 04/24/17 23:50 Dose: 200 mls/hr Admin: 04/24/17 18:50 Dose: 200 mls/hr Lorazepam (Ativan) 1 mg IV Q6H PRN PRN Reason: Nausea/Vomiting Metoprolol Tartrate (Lopressor) 25 mg PO BID [facility] Last Admin: 04/25/17 12:01 Dose: 25 mg Nitroglycerin (Nitrostat) 0.4 mg SL ASDIRECTED PRN PRN Reason: Chest Pain Potassium Chloride (Klor-Con) 20 meq PO DAILY [facility] Last Admin: 04/25/17 09:27 Dose: 20 meq Promethazine HCl (Phenergan) 25 mg PO Q6H PRN PRN Reason: nausea, able to take PO Assessment/Plan Comment:: overnight given IV fluid hydration and anti-emetics. Also protoniX IV. Nausea and vomiting subsided. Was able to tolerate clears without difficulty. She wishes to go home. will see if she is able to tolerate toast and apple juice. She continues to pass flatus. Has had not nausea or vomiting since admission. She chronically has cognitive deficits secondary to long-term alcoholism, this also resulted in severe malnutrition and mobility impairment with muscle wasting for which she uses a walker intermittently due to lower extremity weakness. This is unchanged. she declines working with PT/OT for evaluation and management. If she does well with improved intake, will discharge her to home with her . Both agree with above plan of care.
[2017-04-25 14:22] VITALS: BP 93/61
[2017-04-25] MEDS ORDERED: Sodium Chloride 0.9% 10 ML SDV FLUSH PRN (15:26)
--- NOTE | 2017-04-25 16:41 | PCM.DCSUM1 ---
Discharge Summary - Discharge Data Discharge Date: 04/25/17 Discharge Disposition: Home, Self-Care 01 Condition: Fair - Discharge Diagnosis/Problem(s) (1) Acute on chronic alteration in mental status SNOMED Code(s): 308608838 ICD Code: R41.82 - ALTERED MENTAL STATUS, UNSPECIFIED Status: Acute Current Visit: No (2) Vomiting SNOMED Code(s): 573692247 ICD Code: R11.10 - VOMITING, UNSPECIFIED Status: Acute Current Visit: No Qualifiers: Nausea presence: with nausea (3) Acute alcoholic hepatitis SNOMED Code(s): 2294369 ICD Code: K70.10 - ALCOHOLIC HEPATITIS WITHOUT ASCITES Status: Acute Current Visit: No (4) Moderate dehydration SNOMED Code(s): 3728950615781 ICD Code: E86.0 - DEHYDRATION Status: Acute Current Visit: Yes (5) Alcohol abuse SNOMED Code(s): 88741993 ICD Code: F10.10 - ALCOHOL ABUSE, UNCOMPLICATED Status: Acute Current Visit: No (6) Alcoholism SNOMED Code(s): 4020774 ICD Code: F10.20 - ALCOHOL DEPENDENCE, UNCOMPLICATED Status: Acute Current Visit: No (7) Palliative care status SNOMED Code(s): 355221687 ICD Code: Z51.5 - ENCOUNTER FOR PALLIATIVE CARE Status: Acute Current Visit: No (8) Malnutrition compromising bodily function SNOMED Code(s): 5782228 ICD Code: E46 - UNSPECIFIED PROTEIN-CALORIE MALNUTRITION Status: Chronic Priority: High Current Visit: No (9) Mobility impaired SNOMED Code(s): 93523704 ICD Code: Z74.09 - OTHER REDUCED MOBILITY Status: Chronic Current Visit: No - Patient Summary/Data Hospital Course: Patient was admitted overnight given IV fluid hydration and anti-emetics. Also protoniX IV. Nausea and vomiting subsided. Was able to tolerate clears without difficulty. Admitted to improve strength and cognition. She was also able to tolerate toast and apple juice and wishes to go home with her . She continues to pass flatus no abdominal bowel pain no difficulty chewing or swallowing denies headache, tremulousness, agitation, chest pain or pressure, shortness of breath, orthopnea or dysuria. She denies pelvic pain or lower extremity edema. She chronically has cognitive deficits secondary to long-term alcoholism, this also resulted in severe malnutrition and mobility impairment with muscle wasting for which she uses a walker intermittently due to lower extremity weakness. This is unchanged. - Patient Instructions Diet: Regular Diet as Tolerated, No Alcoholic Beverages Activity: As Tolerated Showering/Bathing: May Shower Notify Provider of: Fever, Increased Pain, Nausea and/or Vomiting - Discharge Plan Prescriptions/Med Rec: Promethazine [Phenergan] 25 mg PO Q6H PRN #20 tablet PRN Reason: nausea, able to take PO Home Medications: Home Meds Pantoprazole [ProTONIX] 40 mg PO ACBREAKFAST 10/25/16 [History] Sucralfate [Carafate] 1 gm PO QIDACANDBED 10/25/16 [History] Aspirin 81 mg PO DAILY 04/24/17 [History] Folic Acid 1 mg PO DAILY 04/24/17 [History] Nitroglycerin [Nitrostat] 0.4 mg SL ASDIRECTED PRN 04/24/17 [History] Potassium Chloride [Klor-Con] 20 meq PO DAILY 04/24/17 [History] atorvaSTATin [Lipitor] 20 mg PO BEDTIME 04/24/17 [History] hydrOXYzine Pamoate [Hydroxyzine Pamoate] 25 mg PO TID PRN 04/24/17 [History] traMADol [Ultram] 50 mg PO TID PRN 04/24/17 [History] Metoprolol Tartrate 25 mg PO BID 04/25/17 [History] Promethazine [Phenergan] 25 mg PO Q6H PRN #20 tablet 04/25/17 [Rx] Patient Handouts: Fall Prevention in the Home, [id number], Dehydration, Adult , [id number], Nausea and Vomiting, Adult, Colitis, Deep Vein Thrombosis Forms: ED Department Discharge Referrals: Rocco Gonsales MD [Primary Care Provider] - - General Info Date of Service: 04/25/17 Subjective Update: 52-year-old female tells me this morning she is feeling better. She has improved strength in her arms and legs no more nausea or vomiting. She was able tolerate apple choose to clear fluids. She did also have jello over the evening. She feels ready to try some toast and if that goes well she would like to go home. Nursing denies any events overnight. is at the bedside with her and agrees she is improved. Tells me she has no abdominal pain and she is passing flatus. She denies any flank or pelvic pain. Denies any dysuria. She denies any headache fevers or chills flank pain shortness of breath chest pain or pressure dizziness lightheadedness hallucination (see visual and/or auditory/ tactile). Tells me she knows she needs to discontinue alcohol. Tells me she hasn 't had any in over a week. Functional Status: Reports: Pain Controlled, Tolerating Diet, Urinating - Review of Systems Systems Review Comment: For pertinent positives and negatives please review subjective. - Patient Data Vitals - Most Recent: Last Vital Signs Temp 98.7 F 04/25/17 14:00 Pulse 95 04/25/17 14:00 Resp 16 04/25/17 14:00 BP 93/61 04/25/17 14:00 Pulse Ox 100 04/25/17 14:00 Weight - Most Recent: 60.509 kg I&O - Last 24 hours: Intake & Output 04/25/17 04/25/17 04/25/17 06:59 14:59 22:59 Intake Total 1890 1535 Output Total 150 300 Balance 1740 1235 Lab Results - Last 24 hrs: Laboratory Results - last 24 hr 04/24/17 04/25/17 04/25/17 Range/Units 18:35 06:45 06:45 WBC 9.6 (4.5-12.0) X10-3/uL RBC 3.79 (3.23-5.20) x10(6)uL Hgb 12.7 (11.5-15.5) g/dL Hct 37.4 (30.0-51.3) % MCV 98.6 H (80-96) fL MCH 33.5 (27.7-33.6) pg MCHC 34.0 (32.2-35.4) g/dL RDW 12.0 (11.5-15.5) % Plt Count 118 L (125-369) X10(3)uL MPV 8.5 (7.4-10.4) fL Neut % (Auto) 71.0 (46-82) % Lymph % (Auto) 14.5 (13-37) % [place] % (Auto) 12.0 (4-12) % Eos % (Auto) 0 L (1.0-5.0) % Baso % (Auto) 2 (0-2) % Neut # (Auto) 6.9 (1.6-8.3) # Lymph # (Auto) 1.4 (0.6-5.0) # [place] # (Auto) 1.1 (0.0-1.3) # Eos # (Auto) 0.0 (0.0-0.8) # Baso # (Auto) 0.2 (0.0-0.2) # Sodium 142 (135-145) mmol/L Potassium 3.3 L (3.5-5.3) mmol/L Chloride 106 D (100-110) mmol/L Carbon Dioxide 16 L (21-32) mmol/L BUN 9 (7-18) mg/dL Creatinine 0.8 (0.55-1.02) mg/dL Est Cr Clr Drug Dosing 76.37 mL/min Estimated GFR (MDRD) > 60 (>60) BUN/Creatinine Ratio 11.3 (9-20) Glucose 80 D (80-116) mg/dL Calcium 8.4 L (8.6-10.2) mg/dL Total Bilirubin 1.5 H (0.1-1.3) mg/dL AST 56 H D (5-25) IU/L ALT 45 H D (12-36) U/L Alkaline Phosphatase 132 H (56-112) IU/L Total Protein 7.5 (6.0-8.0) g/dL Albumin 3.9 (3.5-5.2) g/dL Globulin 3.6 g/dL Albumin/Globulin Ratio 1.1 Urine Color Yellow (YELLOW) Urine Appearance Clear (CLEAR) Urine pH 5.0 (5.0-6.5) Ur Specific [place] 1.015 (1.010-1.025) Urine Protein 500 H (NEGATIVE) mg/dL Urine Glucose (UA) Normal (NEGATIVE) mg/dL Urine Ketones 150 H (NEGATIVE) mg/dL Urine Occult Blood Moderate H (NEGATIVE) Urine Nitrite Negative (NEGATIVE) Urine Bilirubin Small H (NEGATIVE) Urine Urobilinogen Normal (NEGATIVE) mg/dL Ur Leukocyte Esterase Negative (NEGATIVE) Urine RBC 5-10 (0) Urine WBC 0-5 (0) Ur Squamous Epith Cells Moderate H (NS,R,O) Urine Bacteria Few H (NS) Med Orders - Current: Current Medications Acetaminophen (Tylenol) 650 mg PO Q4H PRN PRN Reason: Pain (Mild 1-3)/fever Alprazolam (Xanax) 1 mg PO DAILY PRN PRN Reason: Anxiety Last Admin: 04/24/17 20:41 Dose: 1 mg Enoxaparin Sodium (Lovenox) 40 mg SUBCUT Q24H [facility] Last Admin: 04/24/17 20:40 Dose: 40 mg Hydromorphone HCl (Dilaudid) 0.5 mg IVPUSH Q2H PRN PRN Reason: Pain (severe 7-10) Hydroxyzine HCl (Atarax) 25 mg PO TID PRN PRN Reason: Anxiety Sodium Chloride (Normal Saline) 1,000 mls @ 999 mls/hr IV ASDIRECTED [facility] Last Admin: 04/24/17 16:53 Dose: 999 mls/hr Sodium Chloride (Normal Saline) 1,000 mls @ 200 mls/hr IV ASDIRECTED [facility] Last Admin: 04/25/17 10:08 Dose: 200 mls/hr Lorazepam (Ativan) 1 mg IV Q6H PRN PRN Reason: Nausea/Vomiting Metoprolol Tartrate (Lopressor) 25 mg PO BID [facility] Last Admin: 04/25/17 12:01 Dose: 25 mg Nitroglycerin (Nitrostat) 0.4 mg SL ASDIRECTED PRN PRN Reason: Chest Pain Potassium Chloride (Klor-Con) 20 meq PO DAILY [facility] Last Admin: 04/25/17 09:27 Dose: 20 meq Promethazine HCl (Phenergan) 25 mg PO Q6H PRN PRN Reason: nausea, able to take PO Sodium Chloride (Normal Saline) 10 ml FLUSH ASDIRECTED PRN PRN Reason: Keep Vein Open Last Admin: 04/25/17 15:30 Dose: 10 ml Discontinued Medications Aspirin (Aspirin) 81 mg PO DAILY [facility] Atorvastatin Calcium (Lipitor) 20 mg PO BEDTIME [facility] Folic Acid (Folic Acid) 1,000 mg PO DAILY [facility] Hydromorphone HCl (Dilaudid) 1 mg IVPUSH ONETIME ONE Stop: 04/24/17 17:05 Last Admin: 04/24/17 17:18 Dose: 1 mg Pantoprazole Sodium 80 mg/ (Sodium Chloride) 100 mls @ 200 mls/hr IV .BOLUS ONE Stop: 04/24/17 17:34 Last Admin: 04/24/17 17:20 Dose: 200 mls/hr Iopamidol (Isovue-370 (76%)) 75 ml IV ONETIME ONE Stop: 04/24/17 17:42 Last Admin: 04/24/17 17:54 Dose: 65 ml Metoprolol Succinate (Toprol Xl) 25 mg PO BID [facility] Metoprolol Succinate (Toprol Xl) 25 mg PO BID [facility] Last Admin: 04/25/17 01:39 Dose: 25 mg Ondansetron HCl (Zofran) 8 mg IVPUSH ONETIME ONE Stop: 04/24/17 17:07 Last Admin: 04/24/17 17:14 Dose: 8 mg Sucralfate (Carafate) 1 gm PO QIDACANDBED [facility] Tramadol HCl (Ultram) 50 mg PO TID PRN PRN Reason: Pain - Exam General: Reports: Alert, Oriented, Cooperative, No Acute Distress HEENT: Reports: Mucous Membr. Moist/[place] Lungs: Reports: Clear to Auscultation, Normal Respiratory Effort Cardiovascular: Reports: Regular Rate, Regular Rhythm GI/Abdominal Exam: Normal Bowel Sounds, Non-Tender. No: Guarding Back Exam: Denies: Vertebral Tenderness Extremities: No: No Pedal Edema Skin: Reports: Warm, Dry Neurological: Reports: No New Focal Deficit, Strength Equal Bilateral, Other ( Bilateral muscle wasting lower extremities. She ambulates rarely but does use a walker at home as needed. She is always assisted by her .). Denies: Normal Gait, Normal Speech Psy/Mental Status: Reports: Alert, Normal Affect, Anxious. Denies: Agitated, Hallucinations, Withdrawal Symptoms *Q Meaningful Use (DIS) - VTE *Q VTE Criteria *Q: - Stroke *Q Stroke Criteria *Q: - AMI *Q AMI Criteria *Q:
[2017-04-25] MEDS ORDERED: Sodium Chloride 0.9% 10 ML Syringe IV ONE (17:24)
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
== END 2017-04-25 17:25 | disposition home or self-care (01) | DRG 641 ==
LOC: FB.ED 15:42 → FB.MS 18:32
PROVIDERS: ADMIT Emergency Medicine; ATTEND Family Medicine
DX: E86.0 Dehydration (principal); F10.20 Alcohol dependence, uncomplicated; E46 Unspecified protein-calorie malnutrition; R41.82 Altered mental status, unspecified; R11.2 Nausea with vomiting, unspecified; K70.10 Alcoholic hepatitis without ascites; Z51.5 Encounter for palliative care; Z74.09 Other reduced mobility; Z68.20 Body mass index [BMI] 20.0-20.9, adult; Y90.0 Blood alcohol level of less than 20 mg/100 ml; R10.9 Unspecified abdominal pain; R53.81 Other malaise; F09 Unspecified mental disorder due to known physiological condition; I25.2 Old myocardial infarction; K21.9 Gastro-esophageal reflux disease without esophagitis; Z87.440 Personal history of urinary (tract) infections; M21.372 Foot drop, left foot; M21.371 Foot drop, right foot; Z79.82 Long term (current) use of aspirin
CPT/HCPCS: 36415; 74177; 80053; 81001; 82150; 83735; 85025; 85610; 96361; 96365; 96375; 99284; A9270-GY; C9113; G0480; J1170; J1650; J2405; J7030; J7040; J7050; Q9967

== ENCOUNTER 2017-05-23 09:28 | Inpatient (IN) | payer MEDICAID ==
[2017-05-23] MEDS ORDERED: Sodium Chloride 0.9% 1,000 ML IV SCH ×2 (10:00→11:00)
[2017-05-23] MEDS ORDERED: Ondansetron 4 MG/2 ML SDV IVPUSH ONE ×2 (10:02→11:23)
[2017-05-23] MEDS ORDERED: Ketorolac 30 MG/ML SDV IVPUSH ONE (10:35)
--- NOTE | 2017-05-23 10:48 | EDM.PDOC ---
ED HPI GENERAL MEDICAL PROBLEM - General Chief Complaint: Gastrointestinal Problem Stated Complaint: DEHYDRATION Time Seen by Provider: 05/23/17 10:05 Source of Information: Reports: Patient History Limitations: Reports: No Limitations - History of Present Illness INITIAL COMMENTS - FREE TEXT/NARRATIVE: c/o N/V x 3d pt states she drinks one very tall mixed drink daily, no alc x 3d, not been able to drink, thinks she is dehydrated, has some minor discomfort across her lower mid abd when asked was admitted 1m ago for moderate dehydration and acute alcoholic hepatitis after 1w of N/V had inc'd tropon of 2.7 from 3m ago and was transferred to [place], pt states the doctors told her that she had an KS altho she cannot give an details, says she does not believe them, that she did not have CP, that she did not have an KS "like one sees on TV" EKG today with ST 140, PAC, possible GILDARDO, no ST change no CP, no sob, no f/c/d, no BM x several days abd CT 1m ago with mild colon thickening, chronic pancreatic changes, gallstones present lives with who works at a local [employer] - Related Data Allergies Allergy/AdvReac Type Severity Reaction Status Date / Time No Known Allergies Allergy Verified 05/23/17 09:50 Home Meds: Home Meds Sucralfate [Carafate] 1 gm PO QIDACANDBED 10/25/16 [History] Folic Acid 1 mg PO DAILY 04/24/17 [History] Nitroglycerin [Nitrostat] 0.4 mg SL ASDIRECTED PRN 04/24/17 [History] Potassium Chloride [Klor-Con] 20 meq PO DAILY 04/24/17 [History] atorvaSTATin [Lipitor] 20 mg PO BEDTIME 04/24/17 [History] hydrOXYzine Pamoate [Hydroxyzine Pamoate] 25 mg PO TID PRN 04/24/17 [History] traMADol [Ultram] 50 mg PO TID PRN 04/24/17 [History] Promethazine [Phenergan] 25 mg PO Q6H PRN #20 tablet 04/25/17 [Rx] Past Medical History HEENT History: Reports: Cataract Cardiovascular History: Reports: Angina, KS, Other (See Below) Other Cardiovascular History: Pt reports palpitations Gastrointestinal History: Reports: Cholelithiasis, Cirrhosis, Gastritis, GERD Genitourinary History: Reports: UTI, Recurrent 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 Has bilat foot drop. - Infectious Disease History Infectious Disease History: Reports: Chicken Pox Other Infectious Disease History: Unknown. - Past Surgical History HEENT Surgical History: Reports: Cataract Surgery, Tonsillectomy GI Surgical History: Reports: Appendectomy Female Surgical History: Reports: Other (See Below) Other Female Surgeries/Procedures: ? d and Dermatological Surgical History: Reports: Skin Graft Social & Family History - Family History Family Medical History: Unobtainable - Tobacco Use Smoking Status *Q: Never Smoker Second Hand Smoke Exposure: No - Caffeine Use Caffeine Use: Reports: None Other Caffeine Use: Unknown. Patient poor historian at this time. Caffeine Use Comment: Does not use caffeine regularly - Alcohol Use Days Per Week of Alcohol Use: 7 Number of Drinks Per Day: 2 Total Drinks Per Week: 14 - Recreational Drug Use Recreational Drug Use: No ED ROS GENERAL - Review of Systems Review Of Systems: See Below Constitutional: Reports: Weakness, Other (has chronic weakness from inactivity and muscle wasting, using a walker at home) HEENT: Reports: No Symptoms Respiratory: Reports: No Symptoms Cardiovascular: Reports: No Symptoms Endocrine: Reports: No Symptoms GI/Abdominal: Reports: Abdominal Pain, Nausea, Vomiting : Reports: No Symptoms Musculoskeletal: Reports: No Symptoms Skin: Reports: No Symptoms Neurological: Reports: No Symptoms Psychiatric: Reports: No Symptoms Hematologic/Lymphatic: Reports: No Symptoms Immunologic: Reports: No Symptoms ED EXAM, GI/ABD - Physical Exam Exam: See Below Exam Limited By: Other (mild cognitive impairment that is chronic, poor memory for details) General Appearance: Alert, WD/WN, No Apparent Distress, Other (pleasant, cooperative, conversant, no visible distress despite HR 140) Eyes: Bilateral: Normal Appearance (PERRLA, no nystagus), EOMI Ears: Normal External Exam, Normal Canal, Hearing Grossly Normal Nose: Normal Inspection, Normal Mucosa, No Blood Throat/Mouth: Normal Inspection, Normal Lips, Normal Teeth, Normal Gums, Normal Oropharynx, Normal Voice, No Airway Compromise Head: Atraumatic, Normocephalic Neck: Normal Inspection, Supple, Non-Tender, Full Range of Motion Respiratory/Chest: No Respiratory Distress, Lungs Clear, Normal Breath Sounds, No Accessory Muscle Use, Chest Non-Tender Cardiovascular: Regular Rate, Rhythm, No Edema, No Gallop, No JVD, No Murmur, No Rub, Tachycardia, Other (no murmur, regular, tachy, quiet precordium). No: Gallop/S3, Gallop/S4 Back Exam: Normal Inspection, Full Range of Motion, NT Extremities: Normal Inspection, Normal Range of Motion, Non-Tender, No Pedal Edema Neurological: Alert, Oriented, CN II-XII Intact, No Motor/Sensory Deficits Psychiatric: Normal Affect, Normal Mood. No: Anxious, Depressed Mood Skin Exam: Warm, Dry, Intact, Normal Color, No Rash, Other (marked dec'd turgor of ext x 4) Lymphatic: No Adenopathy Course - Vital Signs Last Recorded V/S: Last Vital Signs Temp 36.3 C 05/23/17 09:30 Pulse 140 H 05/23/17 09:30 Resp 18 05/23/17 09:30 BP 110/83 05/23/17 09:30 Pulse Ox 100 05/23/17 09:30 - Orders/Labs/Meds Orders: Active Orders 24 hr Category Date Time Status Patient Status [ADT] Routine ADT 05/23/17 11:55 Active Height and Weight [RC] DAILY Care 05/23/17 11:55 Active Intake and Output [RC] QSHIFT Care 05/23/17 11:56 Active Oxygen Therapy [RC] PRN Care 05/23/17 11:55 Active Telemetry Monitoring [Cardiac Monitoring] [RC] .As Care 05/23/17 12:02 Active Directed Up With Assistance [RC] ASDIRECTED Care 05/23/17 11:55 Active VTE/DVT Education [RC] Per Unit Routine Care 05/23/17 11:55 Active Vital Signs [RC] Q4H Care 05/23/17 11:55 Active Consult to Trencher Driver [CONS] Routine Cons 05/23/17 11:55 Active Clear Liquid Diet [DIET] Diet 05/23/17 Breakfast Ordered Gallbladder [Abdomen Ltd] [US] Stat Exams 05/23/17 11:28 Ordered CBC WITH AUTO DIFF [HEME] AM Lab 05/24/17 05:11 Ordered COMPREHENSIVE METABOLIC PN,CMP [CHEM] AM Lab 05/24/17 05:11 Ordered Acetaminophen [Tylenol] Med 05/23/17 11:55 Active 650 mg PO Q4H PRN Ibuprofen [Motrin] Med 05/23/17 11:55 Active 400 mg PO Q6H PRN Ondansetron [Zofran ODT] Med 05/23/17 11:55 Active 4 mg PO Q4H PRN Sodium Chloride 0.9% [Normal Saline] 1,000 ml Med 05/23/17 10:00 Active IV ASDIRECTED Sodium Chloride 0.9% [Normal Saline] 1,000 ml Med 05/23/17 11:00 Active IV ASDIRECTED Sodium Chloride 0.9% [Saline Flush] Med 05/23/17 11:55 Active 10 ml FLUSH ASDIRECTED PRN Antiembolic Hose [OM.PC] Per Unit Routine Oth 05/23/17 11:57 Ordered Peripheral IV Insertion Adult [OM.PC] Routine Oth 05/23/17 11:55 Ordered Sequential Compression Device [OM.PC] Per Unit Routine Oth 05/23/17 11:57 Ordered EKG 12 Lead [EK] Routine Ther 05/23/17 10:01 Ordered Medication Orders Acetaminophen (Tylenol) 650 mg PO Q4H PRN PRN Reason: Pain (Mild 1-3)/fever Sodium Chloride (Normal Saline) 1,000 mls @ 999 mls/hr IV ASDIRECTED ERICH Stop: 05/27/17 10:00 Last Admin: 05/23/17 10:28 Dose: 999 mls/hr Sodium Chloride (Normal Saline) 1,000 mls @ 999 mls/hr IV ASDIRECTED ERICH Last Admin: 05/23/17 11:30 Dose: 999 mls/hr Ibuprofen (Motrin) 400 mg PO Q6H PRN PRN Reason: Pain (mild 1-3) Ondansetron HCl (Zofran Odt) 4 mg PO Q4H PRN PRN Reason: nausea, able to take PO Sodium Chloride (Saline Flush) 10 ml FLUSH ASDIRECTED PRN PRN Reason: Keep Vein Open Labs: Laboratory Tests 05/23/17 05/23/17 05/23/17 Range/Units 10:25 10:25 10:25 WBC 9.6 (4.5-12.0) X10-3/uL RBC 5.58 H (3.23-5.20) x10(6)uL Hgb 17.4 H D (11.5-15.5) g/dL Hct 54.0 H D (30.0-51.3) % MCV 96.8 H (80-96) fL MCH 31.2 (27.7-33.6) pg MCHC 32.2 (32.2-35.4) g/dL RDW 12.5 (11.5-15.5) % Plt Count 165 (125-369) X10(3)uL MPV 9.4 (7.4-10.4) fL Neut % (Auto) 79.7 (46-82) % Lymph % (Auto) 13.4 (13-37) % [place] % (Auto) 6.4 (4-12) % Eos % (Auto) 0 L (1.0-5.0) % Baso % (Auto) 0 (0-2) % Neut # (Auto) 7.7 (1.6-8.3) # Lymph # (Auto) 1.3 (0.6-5.0) # [place] # (Auto) 0.6 (0.0-1.3) # Eos # (Auto) 0.0 (0.0-0.8) # Baso # (Auto) 0.0 (0.0-0.2) # Sodium 139 (135-145) mmol/L Potassium 3.0 L (3.5-5.3) mmol/L Chloride 91 L D (100-110) mmol/L Carbon Dioxide 12 L (21-32) mmol/L BUN 17 (7-18) mg/dL Creatinine 1.1 H (0.55-1.02) mg/dL Est Cr Clr Drug Dosing TNP Estimated GFR (MDRD) 52 L (>60) BUN/Creatinine Ratio 15.5 (9-20) Glucose 168 H D (80-116) mg/dL Lactic Acid (0.4-2.2) mmol/L Calcium 10.1 (8.6-10.2) mg/dL Magnesium (1.8-2.5) mg/dL Total Bilirubin 2.0 H (0.1-1.3) mg/dL AST 316 H* D (5-25) IU/L ALT 227 H* D (12-36) U/L Alkaline Phosphatase 331 H (56-112) IU/L Troponin I < 0.017 L (<0.017-0.056) ng/mL C-Reactive Protein 0.8 (0.5-0.9) mg/dL Total Protein 9.0 H (6.0-8.0) g/dL Albumin 4.3 (3.5-5.2) g/dL Globulin 4.7 g/dL Albumin/Globulin Ratio 0.9 Amylase 238 H (25-115) U/L 18 //18 Range/Units 10:25 10:25 WBC (4.5-12.0) X10-3/uL RBC (3.23-5.20) x10(6)uL Hgb (11.5-15.5) g/dL Hct (30.0-51.3) % MCV (80-96) fL MCH (27.7-33.6) pg MCHC (32.2-35.4) g/dL RDW (11.5-15.5) % Plt Count (125-369) X10(3)uL MPV (7.4-10.4) fL Neut % (Auto) (46-82) % Lymph % (Auto) (13-37) % [place] % (Auto) (4-12) % Eos % (Auto) (1.0-5.0) % Baso % (Auto) (0-2) % Neut # (Auto) (1.6-8.3) # Lymph # (Auto) (0.6-5.0) # [place] # (Auto) (0.0-1.3) # Eos # (Auto) (0.0-0.8) # Baso # (Auto) (0.0-0.2) # Sodium (135-145) mmol/L Potassium (3.5-5.3) mmol/L Chloride (100-110) mmol/L Carbon Dioxide (21-32) mmol/L BUN (7-18) mg/dL Creatinine (0.55-1.02) mg/dL Est Cr Clr Drug Dosing Estimated GFR (MDRD) (>60) BUN/Creatinine Ratio (9-20) Glucose (80-116) mg/dL Lactic Acid 1.6 (0.4-2.2) mmol/L Calcium (8.6-10.2) mg/dL Magnesium 1.6 L (1.8-2.5) mg/dL Total Bilirubin (0.1-1.3) mg/dL AST (5-25) IU/L ALT (12-36) U/L Alkaline Phosphatase (56-112) IU/L Troponin I (<0.017-0.056) ng/mL C-Reactive Protein (0.5-0.9) mg/dL Total Protein (6.0-8.0) g/dL Albumin (3.5-5.2) g/dL Globulin g/dL Albumin/Globulin Ratio Amylase (25-115) U/L Meds: Medications Generic Name Dose Route Start Last Admin Trade Name Freq PRN Reason Stop Dose Admin Acetaminophen 650 mg 05/23/17 11:55 Tylenol PO Q4H PRN Pain (Mild 1-3)/fever Sodium Chloride 1,000 mls @ 999 mls/hr 05/23/17 10:00 05/23/17 10:28 Normal Saline IV 05/27/17 10:00 999 mls/hr ASDIRECTED ERICH Administration Sodium Chloride 1,000 mls @ 999 mls/hr 05/23/17 11:00 05/23/17 11:30 Normal Saline IV 999 mls/hr ASDIRECTED ERICH Administration Ibuprofen 400 mg 05/23/17 11:55 Motrin PO Q6H PRN Pain (mild 1-3) Ondansetron HCl 4 mg 05/23/17 11:55 Zofran Odt PO Q4H PRN nausea, able to take PO Sodium Chloride 10 ml 05/23/17 11:55 Saline Flush FLUSH ASDIRECTED PRN Keep Vein Open Discontinued Medications Generic Name Dose Route Start Last Admin Trade Name Freq PRN Reason Stop Dose Admin Ketorolac Tromethamine 30 mg 05/23/17 10:35 05/23/17 10:43 Toradol IVPUSH 05/23/17 10:36 30 mg ONETIME ONE Administration Ondansetron HCl 4 mg 05/23/17 10:02 05/23/17 10:28 Zofran IVPUSH 05/23/17 10:03 4 mg ONETIME ONE Administration Ondansetron HCl 4 mg 05/23/17 11:23 05/23/17 11:57 Zofran IVPUSH 05/23/17 11:24 4 mg ONETIME ONE Administration - Re-Assessments/Exams Free Text/Narrative Re-Assessment/Exam: 05/23/17 12:03 d/c records from 02/23 from [facility] reviewed, pt dx with NSTEMI and demand ischemia with a repeat echo wnl with EF 60% pt d/w hospitalist who accepted pt in admission, pt agrees HR 140 to 115 after 1 liter NS, no signs of DTs trop and lactic acid neg now hgb 17.4, up from 12.7 on d/c 1m ago when in hospital her alk phos 331, AST/ALT 316/227, all running higher than baseline, will obtain a GB u/s as pt has known cholelithiasis, however clinical does not have evidence of acute cholecystitis and RUQ is soft and NT INR ordered, lab unable to obtain the required 2 cc d/t dehydration, pt currently on 2nd liter NS Departure - Departure Time of Disposition: 12:07 Disposition: Admitted As Inpatient 67 Condition: Fair Clinical Impression: Dehydration, moderate, Acute alcoholic hepatitis, Chronic alcoholic liver disease, Alcoholic liver damage, unspecified, Chronic alcoholic hepatitis, Hypokalemia, Hypomagnesemia, Sinus tachycardia - Discharge Information Referrals: Rocco Gonsales MD [Primary Care Provider] - Forms: ED Department Discharge - My Orders Last 24 Hours: My Active Orders 05/23/17 10:00 Sodium Chloride 0.9% [Normal Saline] 1,000 ml IV ASDIRECTED 05/23/17 10:01 EKG 12 Lead [EK] Routine 05/23/17 11:00 Sodium Chloride 0.9% [Normal Saline] 1,000 ml IV ASDIRECTED 05/23/17 11:28 Gallbladder [Abdomen Ltd] [US] Stat - Assessment/Plan Last 24 Hours: My Active Orders 03/16/18 10:00 Sodium Chloride 0.9% [Normal Saline] 1,000 ml IV ASDIRECTED 05/23/17 10:01 EKG 12 Lead [EK] Routine 05/23/17 11:00 Sodium Chloride 0.9% [Normal Saline] 1,000 ml IV ASDIRECTED 05/23/17 11:28 Gallbladder [Abdomen Ltd] [US] Stat
[2017-05-23] MEDS ORDERED: Ibuprofen 400 MG Tab PO PRN (11:55)
[2017-05-23] MEDS ORDERED: Ondansetron 4 MG Tab.DIS PO PRN (11:55)
[2017-05-23] MEDS ORDERED: Thiamine 100 MG in Sodium Chloride 0.9% 50 ML IV SCH (12:15)
[2017-05-23] MEDS ORDERED: Magnesium Sulfate/Water 50 ML IV ONE (13:30)
[2017-05-23] MEDS: Thiamine 200 MG/2 ML MDV IV SCH (13:39)
[2017-05-23] MEDS: Pantoprazole 40 MG Vial IV SCH (13:45)
[2017-05-23] MEDS: Folic Acid 1 MG Tab PO SCH (13:48)
[2017-05-23] MEDS: Multivitamin Tab PO SCH (13:48)
[2017-05-23] MEDS: Potassium Chloride 40 MEQ in Sodium Chloride 0.45% 1,000 ML IV SCH ×2 (14:11→22:31)
[2017-05-23] MEDS ORDERED: Prochlorperazine 25 MG Supp RECTAL PRN (14:18)
[2017-05-23] MEDS: fentaNYL 100 MCG/2 ML SDV IVPUSH PRN (14:47)
--- NOTE | 2017-05-23 14:57 | US ---
INDICATION: Nausea and vomiting x3 days, alcohol abuse, history of stones. RIGHT UPPER QUADRANT/GALLBLADDER ULTRASOUND: Multiple ultrasonic images were obtained 05/23/2017 and compared with 04/22/2011. The gallbladder was normal in size, but did show evidence of gravel - tiny calculi which move in response to patient motion. The gallbladder measured 6.9 x 2.8 x 3.4 cm. An ultrasonic Harris sign was not delineated. There are tiny polypoid appearing defects along the wall, suggesting cholesterolosis of the gallbladder. This is a new finding compared with the previous study. No pericholecystic fluid was seen. No significant wall thickening was present. The common bile duct was normal in caliber at 2.9 mm. The liver is echogenic, as previously, compatible with fatty infiltration, but should be correlated clinically. The right kidney appeared normal, measuring 10.7 x 4 x 4.5 cm. The pancreas was not very well visualized. No gross abnormality was seen. It appears to be fatty replaced. IMPRESSION: 1. Cholelithiasis with probable cholesterolosis of the gallbladder. No finding to strongly suggest acute cholecystitis. 2. Fatty infiltration of the liver. 3. Normal common bile duct which measured 2.9 to 5 mm in diameter. MTDD
--- NOTE | 2017-05-23 15:37 | PCM.HP ---
H&P History of Present Illness - General Date of Service: 05/23/17 Admit Problem/Dx: Patient is a chronic alcoholic 52-year-old female with a history of recurrent admissions for chronic pancreatitis with nausea, vomiting, abdominal pain and dehydration. She was admitted through the emergency department. History is obtained from the patient, the ER physician, and previous records. No family is available to corroborate at this time. The patient tells me she normally drinks about a liter of fluid a day. She basically sits home all day watching television in her recliner. She sometimes goes to the bathroom in a bedpan other times gets up with help from her to move around in the apartment. Basically lives in her recliner. Last admission was 04/25/17 when she was admitted for similar symptoms. She tells me this episode started with nausea and vomiting 3-4 days ago. She hasn't been able to take any of her chronic medications since that time. She's been using both dry heaves and also vomiting up anything she tries to eat or drink. She hasn't had any alcohol for at least 3 days she tells me. Blood alcohol was negative today. She has a history of chronic alcoholism and some mild cognitive impairment due to this. She also has chronic liver disease and chronic pancreatitis as a result of her drinking. Although today when she is visiting with me she is alert and oriented 3 and able to give a fairly accurate history in terms of verifiable data from the chart, looking at her previous admissions she's often had cognitive impairment secondary to hepatic encephalopathy or intoxication on presentation. She was initially seen and evaluated in the emergency department and was found to have metabolic acidosis with hypokalemia and hypomagnesemia were fairly profound. Creatinine was slightly elevated at 1.1. LFTs were elevated. I was asked to admit the patient for further treatment of her hypovolemia, electrolyte abnormalities, and nausea and vomiting. Past medical history: #1 chronic alcoholism with chronic liver disease and chronic pancreatitis. Patient's last hospitalizations were 04/25/17, 02/18/17, 10/25/16, 06/19/16, . Also the same presentation. Hospitalizations vary by the degree of electrolyte abnormality and patient confusion but otherwise are all for nausea, vomiting and dehydration. Had EGD done one hospitalization. #2 documented NSTEMI in 02/2017 with stress test from 02/22/17 showing mildly abnormal Jenna Cardiolite myocardial perfusion images, small area of nontransmural infarct in the distal anterior wall apex cannot be excluded, hyperdynamic left ventricle, no significant wall motion abnormalities. EF > 70% . Echo done 02/23/17 showed ejection fraction of 60% with no left ventricular regional wall motion abnormalities. Cardiology felt the Cardiolite ejection fraction reflected a stress cardiomyopathy and recommended against beta ike and CHRISTY inhibitor unless EF was low. #3 chronic behavior resulting in patient harm which patient is unwilling to address. Patient advised to quit drinking, recommended treatment multiple times , psychological evaluation recommended, but patient has been unsuccessful in beginning this process. Please see notes in EMR for further details as to multiple attempts to move this patient towards life-saving abstinence and mental health treatment. #4 multiple electrolyte abnormalities likely result of alcohol abuse. Includes hypokalemia, hypophosphatemia, hypomagnesemia. Social history: The patient and her live in a home in [place]. He works from [employer] in [place]. Commutes daily. She is a nonsmoker but drinks about a half liter to a liter of whiskey a day. over the phone reports a half liter of whiskey per day but the patient reports about a liter. She says she likes to drink. She also drinks about 2 beers a day. Sits in her home in her recliner and watches television. Often uses the bedpan instead of getting up to go to the bathroom. Family history: Patient has 2 children, a boy and a girl who are in good health. Mother is living at 76 with Alzheimer's dementia in the halfway. Father is living and had a history of myocardial infarction at 75. Abdomen Pain Score (Numeric/FACES): 10 - Related Data Allergies/Adverse Reactions: Allergies Allergy/AdvReac Type Severity Reaction Status Date / Time ondansetron AdvReac Severe Arrhythmias Verified 05/23/17 16:18 [From Zofran (as hydrochloride)] Home Medications: Home Meds Sucralfate [Carafate] 1 gm PO QIDACANDBED 10/25/16 [History] Folic Acid 1 mg PO DAILY 04/24/17 [History] Nitroglycerin [Nitrostat] 0.4 mg SL ASDIRECTED PRN 04/24/17 [History] Potassium Chloride [Klor-Con] 20 meq PO DAILY 04/24/17 [History] atorvaSTATin [Lipitor] 20 mg PO BEDTIME 04/24/17 [History] hydrOXYzine Pamoate [Hydroxyzine Pamoate] 25 mg PO TID PRN 04/24/17 [History] traMADol [Ultram] 50 mg PO TID PRN 04/24/17 [History] Promethazine [Phenergan] 25 mg PO Q6H PRN #20 tablet 04/25/17 [Rx] Past Medical History HEENT History: Reports: Cataract, Impaired Vision Cardiovascular History: Reports: Angina, [place], Other (See Below) Other Cardiovascular History: Pt reports palpitations Respiratory History: Reports: SOB Gastrointestinal History: Reports: Cholelithiasis, Cirrhosis, Gastritis, GERD Genitourinary History: Reports: UTI, Recurrent [employer] History: Reports: Musculoskeletal History: Reports: Other (See Below) Other Musculoskeletal History: peripheral neuropathy,airr Neurological History: Reports: Neuropathy, Peripheral Psychiatric History: Reports: Addiction, Anxiety, Panic Attack, Psych Hospitalization(s) Other Psychiatric History: Hx ETOH abuse Endocrine/Metabolic History: Reports: None Hematologic History: Reports: None, Anemia Immunologic History: Reports: None Oncologic (Cancer) History: Reports: None Dermatologic History: Reports: Other (See Below) Other Dermatologic History: severe goel bite to hands bilat & feet. Has bilat foot drop. - Infectious Disease History Infectious Disease History: Reports: Chicken Pox Other Infectious Disease History: Unknown. - Past Surgical History HEENT Surgical History: Reports: Cataract Surgery, Tonsillectomy GI Surgical History: Reports: Appendectomy Female Surgical History: Reports: Other (See Below) Other Female Surgeries/Procedures: ? d and Dermatological Surgical History: Reports: Skin Graft Social & Family History - Family History Family Medical History: Unobtainable - Tobacco Use Smoking Status *Q: Never Smoker Second Hand Smoke Exposure: No - Caffeine Use Caffeine Use: Reports: None Other Caffeine Use: Unknown. Patient poor historian at this time. Caffeine Use Comment: Does not use caffeine regularly - Alcohol Use Days Per Week of Alcohol Use: 7 Number of Drinks Per Day: 2 Total Drinks Per Week: 14 - Recreational Drug Use Recreational Drug Use: No H&P Review of Systems - Review of Systems: Review Of Systems: See Below General: Reports: Weakness, Fatigue, Weight Loss HEENT: Reports: No Symptoms Pulmonary: Reports: No Symptoms Cardiovascular: Reports: Dyspnea on Exertion Gastrointestinal: Reports: Abdominal Pain (pain is diffuse and radiates to the back through the epigastrium. However, is all over. No blood in stool or vomit.), Anorexia, Decreased Appetite, Nausea, Vomiting Genitourinary: Reports: No Symptoms Musculoskeletal: Reports: Muscle Pain, Muscle Stiffness (weakness.) Skin: Reports: No Symptoms Psychiatric: Reports: Confusion (intermittent) Neurological: Reports: Dizziness, Difficulty Walking, Weakness Hematologic/Lymphatic: Reports: No Symptoms Immunologic: Reports: No Symptoms Exam - Exam Exam: See Below - Vital Signs Vital Signs: Last Vital Signs Temp 36.8 C 05/23/17 12:35 Pulse 115 H 05/23/17 12:35 Resp 22 H 05/23/17 12:35 BP 129/89 05/23/17 12:35 Pulse Ox 100 05/23/17 12:35 Weight: 54.431 kg - Exam General: Alert, Oriented (oriented to person, place, time, date, president, hx which is verifiable from the chart. ), Cooperative HEENT: Pupils Equal, Pupils Reactive Neck: Supple Lungs: Clear to Auscultation, Normal Respiratory Effort Cardiovascular: Regular Rate, Regular Rhythm, Normal S1, Normal S2 GI/Abdominal Exam: Soft, Tender (diffuse tenderness, no point tenderness. BS hypoactive. No hepatosplenomegaly palpable.) (Female) Exam: Deferred Rectal (Female) Exam: Deferred Back Exam: Normal Inspection, Full Range of Motion Extremities: Normal Inspection, Normal Range of Motion, No Pedal Edema Skin: Warm, Dry, Intact Neuro Extensive - Mental Status: Alert, Oriented x3 Psychiatric: Alert, Normal Affect - Patient Data Result Diagrams: 05/23/17 10:25 05/23/17 10:25 EKG INTERPRETATION EKG Date: 05/23/17 (Initial EKG showed sinus tachycardia with a rate of 140. With IV fluids, rate came down to 115 and now is under 100. Initial EKG did not show any ST depression or ST elevation.) *Q Meaningful Use (ADM) - VTE *Q VTE Criteria *Q: - Stroke *Q Stroke Criteria *Q: - AMI *Q AMI Criteria *Q: - Problem List (1) Hypovolemia associated with vomiting SNOMED Code(s): 88715687 ICD Code: E86.1 - HYPOVOLEMIA Status: Acute Current Visit: Yes Problem Details: Patient received 2 L normal saline in the emergency department. She is now voiding and I changed her to half-normal saline with 40 mg of potassium chloride to replace her potassium. She still not able to take by mouth but is no longer actively vomiting. I believe this is secondary to chronic pancreatitis as noted below. (2) Chronic pancreatitis due to acute alcohol intoxication SNOMED Code(s): 717748868 ICD Code: K86.0 - ALCOHOL-INDUCED CHRONIC PANCREATITIS Status: Acute Current Visit: No Problem Details: Patient's underlying issue clearly has been alcohol abuse. Spoke with her , Juan, over the phone. Until the patient stops drinking, she is going to continue to have worsening episodes of organ dysfunction and electrolyte abnormalities until one of these episodes is going to be fatal. I strongly recommended involuntary commitment of this patient as she is placing her life in significant jeopardy by continuing to drink. Her is not supportive of this and feels that her right to drink herself to if she chooses to do so. Although I understand his position, I did ask him to reconsider as if the patient was suicidal she should be hospitalized to treat the depression causing her suicidal ideation. In the same way, the patient is not able to control her drinking and is essentially committing suicide through alcohol consumption. He is going to consider this and visit more with her children about this. In the interim, the patient's white count is normal. Pain is controlled as his nausea and vomiting. Will continue pain management with fentanyl IV, nothing but clear liquids until pain is resolved, and will attempt to pursue commitment through the [facility]. This will be complicated by the fact that today is Friday. (3) Chronic alcoholic hepatitis SNOMED Code(s): 072226058 ICD Code: K70.10 - ALCOHOLIC HEPATITIS WITHOUT ASCITES Status: Acute Current Visit: Yes Problem Details: LFTs are elevated and so his bilirubin so an ultrasound was done which showed sludge and gallstones but no obstruction and no gallbladder wall thickening. Will follow LFTs. (4) Hypokalemia SNOMED Code(s): 85901369 ICD Code: E87.6 - HYPOKALEMIA Status: Acute Current Visit: Yes Problem Details: Currently replacing potassium IV. (5) Hypomagnesemia SNOMED Code(s): 319464386 ICD Code: E83.42 - HYPOMAGNESEMIA Status: Acute Current Visit: Yes Problem Details: Replacing magnesium IV. Follow daily. (6) Metabolic acidosis SNOMED Code(s): 53273667 ICD Code: E87.2 - ACIDOSIS Status: Acute Current Visit: No Problem Details: We'll recheck labs tomorrow. (7) Alcoholism SNOMED Code(s): 8379819 ICD Code: F10.20 - ALCOHOL DEPENDENCE, UNCOMPLICATED Status: Acute Current Visit: No Problem Details: Again, strongly recommend involuntary commitment to save the patient's life. Her hospitalizations are becoming more frequent and electrolyte abnormalities are severe enough that the patient could from these abnormalities if left untreated. Monitoring currently with [facility] protocol for signs of withdrawal and treat as needed. Replace vitamins per protocol and follow electrolytes. (8) CAD (coronary atherosclerotic disease) SNOMED Code(s): 031964028 ICD Code: I25.10 - ATHSCL HEART DISEASE OF [place] CORONARY ARTERY W/O ANG PCTRS Status: Acute Current Visit: Yes Problem Details: Recent history of NSTEMI. Patient not consistent with medications including aspirin beta, beta ike, CHRISTY inhibitor. Again, alcohol abuse is inhibiting the patient's overall health and will monitor closely for evidence of myocardial infarction. Initial troponin was negative. (9) QT prolongation SNOMED Code(s): 114088624 ICD Code: R94.31 - ABNORMAL ELECTROCARDIOGRAM [ECG] [EKG] Status: Acute Current Visit: Yes Problem Details: I repeated the patient's EKG because her QT interval appeared so long on the first EKG and questioning whether or not she had T-wave P fusion. The patient's QTC on the first EKG was 579. The QTC on the second EKG was 519. We need to avoid medications that will cause prolonged QT interval on this patient. She also should be continued on beta ike therapy. Will start her on IV metoprolol. When she can take by mouth this can be changed back to her baseline metoprolol tartrate 12.5 mg twice a day. Will transfer patient given her electrolyte abnormalities and QTC prolongation to ICU status. Problem List Initiated/Reviewed/Updated: Yes Orders Last 24hrs: Active Orders 24 hr Category Date Time Status Magnesium Sulfate/Water [Magnesium Sulfate 2 GM in Med 05/23/17 13:30 Active Water 50 ML] 50 ml IV ONETIME Potassium Chloride 40 meq Med 05/23/17 13:30 Active Sodium Chloride 0.45% 1,000 ml IV Q8H Prochlorperazine [Compro] Med 05/23/17 14:18 Active 25 mg RECTAL Q12H PRN Thiamine [Vitamin B-1] Med 05/23/17 14:00 Active 100 mg IV DAILY fentaNYL [Sublimaze] Med 05/23/17 14:13 Active 50 mcg IVPUSH Q30M PRN Medication Orders Acetaminophen (Tylenol) 650 mg PO Q4H PRN PRN Reason: Pain (Mild 1-3)/fever Fentanyl (Sublimaze) 50 mcg IVPUSH Q30M PRN PRN Reason: Pain greater than 6 Last Admin: 05/23/17 14:47 Dose: 50 mcg Folic Acid (Folic Acid) 1 mg PO DAILY [facility] Last Admin: 05/23/17 13:48 Dose: Not Given Sodium Chloride (Normal Saline) 1,000 mls @ 999 mls/hr IV ASDIRECTED [facility] Stop: 05/27/17 10:00 Last Admin: 05/23/17 10:28 Dose: 999 mls/hr Sodium Chloride (Normal Saline) 1,000 mls @ 999 mls/hr IV ASDIRECTED [facility] Last Admin: 05/23/17 11:30 Dose: 999 mls/hr Magnesium Sulfate (Magnesium Sulfate 2 Gm In Water 50 Ml) 50 mls @ 25 mls/hr IV ONETIME ONE Stop: 05/23/17 15:29 Last Admin: 05/23/17 13:40 Dose: 25 mls/hr Potassium Chloride 40 meq/ (Sodium Chloride) 1,020 mls @ 125 mls/hr IV Q8H [facility] Last Admin: 05/23/17 14:11 Dose: 125 mls/hr Lorazepam (Ativan) 0 mg PO ASDIRECTED [facility] PRN Reason: Protocol Multivitamins/Minerals/Vitamin C (Tab-A-Shelby) 1 tab PO DAILY [facility] Last Admin: 05/23/17 13:48 Dose: Not Given Ondansetron HCl (Zofran Odt) 4 mg PO Q4H PRN PRN Reason: nausea, able to take PO Pantoprazole Sodium (Protonix Iv) 40 mg IV DAILY [facility] Last Admin: 05/23/17 13:45 Dose: 40 mg Prochlorperazine Maleate (Compro) 25 mg RECTAL Q12H PRN PRN Reason: Nausea Sodium Chloride (Saline Flush) 10 ml FLUSH ASDIRECTED PRN PRN Reason: Keep Vein Open Thiamine HCl (Vitamin B-1) 100 mg IV DAILY [facility] Last Admin: 05/23/17 13:39 Dose: 100 mg Assessment/Plan Comment:: Discussed CODE STATUS at length with the patient and her separately. The patient tells me that she would like full medical care up to the point of . However if she gets so sick that she dies, she does not want resuscitation. No chest compressions, no CPR, no electric shocks. She feels her quality of life is very poor and if she dies, she really doesn't have much to live for. I reviewed this with the patient's and he feels what she wishes is what he would like to do but he does want to make sure that she gets medical care if what's going on is fixable. I again stressed to him that a Band- Aid on a hemorrhage is not helpful and for this patient as we continue to try to treat the symptoms of her alcohol abuse without treating her alcohol abuse ultimately she will from the disease. We need to treat her alcoholism if we are going to have any lasting impact in preventing her . At this time the patient's CODE STATUS is DNR/Yes intubation, YES full medical support up to the point of . However, again stressed to the patient and her that the only treatment that will prevent her from dying is if she stops drinking.
[2017-05-23] MEDS: Metoprolol Tartrate 5 MG/5 ML SDV IVPUSH SCH ×2 (17:03→20:02)
[2017-05-23] MEDS: LORazepam 1 MG Tab PO SCH ×3 (17:06→21:01)
[2017-05-23] MEDS: Acetaminophen 325 MG Tab PO PRN (18:56)
[2017-05-24] MEDS: Metoprolol Tartrate 5 MG/5 ML SDV IVPUSH SCH ×3 (00:01→07:39)
[2017-05-24] MEDS: Potassium Chloride 40 MEQ in Sodium Chloride 0.45% 1,000 ML IV SCH ×2 (06:48→15:08)
[2017-05-24] MEDS: Acetaminophen 325 MG Tab PO PRN ×3 (07:38→22:05)
[2017-05-24] MEDS: LORazepam 1 MG Tab PO SCH (07:38)
[2017-05-24] MEDS: Multivitamin Tab PO SCH (08:00)
[2017-05-24] MEDS: Thiamine 200 MG/2 ML MDV IV SCH (08:00)
[2017-05-24] MEDS: Pantoprazole 40 MG Vial IV SCH (08:00)
[2017-05-24] MEDS: Folic Acid 1 MG Tab PO SCH (08:00)
--- NOTE | 2017-05-24 08:34 | PCM.PN ---
- General Info Date of Service: 05/24/17 Subjective Update: Patient much improved this morning. No chest pain, no shortness of breath, no nausea, no vomiting. She is taking clear liquids. Still has abdominal pain but it's improved. Did require Ativan this morning for anxiety/withdrawal symptoms. - Patient Data Vitals - Most Recent: Last Vital Signs Temp 36.7 C 05/24/17 04:00 Pulse 98 05/24/17 07:39 Resp 20 05/24/17 07:27 BP 128/72 05/24/17 07:39 Pulse Ox 100 05/24/17 07:27 Weight - Most Recent: 56.926 kg I&O - Last 24 Hours: Intake & Output 05/23/17 05/24/17 05/24/17 22:59 06:59 14:59 Intake Total 1601 1157 Output Total 450 800 150 Balance 1151 357 -150 Lab Results Last 24 Hours: Laboratory Results - last 24 hr 05/24/17 05/24/17 05/24/17 Range/Units 06:35 06:35 06:35 WBC 6.8 (4.5-12.0) X10-3/uL RBC 4.05 (3.23-5.20) x10(6)uL Hgb 13.4 D (11.5-15.5) g/dL Hct 38.8 D (30.0-51.3) % MCV 95.7 (80-96) fL MCH 32.9 (27.7-33.6) pg MCHC 34.4 (32.2-35.4) g/dL RDW 12.5 (11.5-15.5) % Plt Count 96 L (125-369) X10(3)uL MPV 9.0 (7.4-10.4) fL Neut % (Auto) 74.5 (46-82) % Lymph % (Auto) 16.7 (13-37) % [place] % (Auto) 5.1 (4-12) % Eos % (Auto) 2 (1.0-5.0) % Baso % (Auto) 2 (0-2) % Neut # (Auto) 5.2 (1.6-8.3) # Lymph # (Auto) 1.1 (0.6-5.0) # [place] # (Auto) 0.3 (0.0-1.3) # Eos # (Auto) 0.1 (0.0-0.8) # Baso # (Auto) 0.1 (0.0-0.2) # PT 12.2 H (8.7-11.1) INR 1.21 H (0.89-1.13) Sodium 134 L (135-145) mmol/L Potassium 3.3 L (3.5-5.3) mmol/L Chloride 100 D (100-110) mmol/L Carbon Dioxide 21 (21-32) mmol/L BUN 4 L D (7-18) mg/dL Creatinine 0.6 (0.55-1.02) mg/dL Est Cr Clr Drug Dosing 99.69 mL/min Estimated GFR (MDRD) > 60 (>60) BUN/Creatinine Ratio 6.7 L (9-20) Glucose 116 (80-116) mg/dL Calcium 8.3 L (8.6-10.2) mg/dL Phosphorus 1.5 L (2.6-4.6) mg/dL Magnesium 1.5 L (1.8-2.5) mg/dL Total Bilirubin 1.6 H (0.1-1.3) mg/dL AST 128 H D (5-25) IU/L ALT 123 H D (12-36) U/L Alkaline Phosphatase 201 H (56-112) IU/L Total Protein 6.2 (6.0-8.0) g/dL Albumin 3.0 L (3.5-5.2) g/dL Globulin 3.2 g/dL Albumin/Globulin Ratio 0.9 Med Orders - Current: Current Medications Acetaminophen (Tylenol) 650 mg PO Q4H PRN PRN Reason: Pain (Mild 1-3)/fever Last Admin: 05/24/17 07:38 Dose: 650 mg Fentanyl (Sublimaze) 50 mcg IVPUSH Q30M PRN PRN Reason: Pain greater than 6 Last Admin: 05/23/17 14:47 Dose: 50 mcg Folic Acid (Folic Acid) 1 mg PO DAILY [facility] Last Admin: 05/23/17 13:48 Dose: Not Given Sodium Chloride (Normal Saline) 1,000 mls @ 999 mls/hr IV ASDIRECTED [facility] Stop: 05/27/17 10:00 Last Admin: 05/23/17 10:28 Dose: 999 mls/hr Sodium Chloride (Normal Saline) 1,000 mls @ 999 mls/hr IV ASDIRECTED [facility] Last Admin: 05/23/17 11:30 Dose: 999 mls/hr Potassium Chloride 40 meq/ (Sodium Chloride) 1,020 mls @ 125 mls/hr IV Q8H [facility] Last Admin: 05/24/17 06:48 Dose: 125 mls/hr Lorazepam (Ativan) 0 mg PO ASDIRECTED [facility] PRN Reason: Protocol Last Admin: 05/24/17 07:38 Dose: 1 mg Multivitamins/Minerals/Vitamin C (Tab-A-Shelby) 1 tab PO DAILY [facility] Last Admin: 05/23/17 13:48 Dose: Not Given Pantoprazole Sodium (Protonix Iv) 40 mg IV DAILY [facility] Last Admin: 05/23/17 13:45 Dose: 40 mg Potassium Phos/Sodium Phos (Phos-Nak Powder) 1 each PO QID [facility] Prochlorperazine Maleate (Compro) 25 mg RECTAL Q12H PRN PRN Reason: Nausea Sodium Chloride (Saline Flush) 10 ml FLUSH ASDIRECTED PRN PRN Reason: Keep Vein Open Thiamine HCl (Vitamin B-1) 100 mg IV DAILY [facility] Last Admin: 05/23/17 13:39 Dose: 100 mg Discontinued Medications Magnesium Sulfate (Magnesium Sulfate 2 Gm In Water 50 Ml) 50 mls @ 25 mls/hr IV ONETIME ONE Stop: 05/23/17 15:29 Last Admin: 05/23/17 13:40 Dose: 25 mls/hr Ibuprofen (Motrin) 400 mg PO Q6H PRN PRN Reason: Pain (mild 1-3) Ketorolac Tromethamine (Toradol) 30 mg IVPUSH ONETIME ONE Stop: 05/23/17 10:36 Last Admin: 05/23/17 10:43 Dose: 30 mg Metoprolol Tartrate (Lopressor) 2.5 mg IVPUSH Q4H [facility] Last Admin: 05/24/17 07:39 Dose: 2.5 mg Ondansetron HCl (Zofran) 4 mg IVPUSH ONETIME ONE Stop: 05/23/17 10:03 Last Admin: 05/23/17 10:28 Dose: 4 mg Ondansetron HCl (Zofran) 4 mg IVPUSH ONETIME ONE Stop: 05/23/17 11:24 Last Admin: 05/23/17 11:57 Dose: 4 mg Ondansetron HCl (Zofran Odt) 4 mg PO Q4H PRN PRN Reason: nausea, able to take PO - Exam General: Alert, Oriented, Cooperative, No Acute Distress (Currently resting comfortably) HEENT: Pupils Equal, Pupils Reactive Neck: Supple Lungs: Clear to Auscultation, Normal Respiratory Effort Cardiovascular: Regular Rate, Regular Rhythm GI/Abdominal Exam: Soft, No Organomegaly, No Distention, No Mass, Tender ( diffusely tender.), Abnormal Bowel Sounds (hypoactive.) Back Exam: Normal Inspection Extremities: Normal Inspection, Normal Range of Motion, No Pedal Edema Skin: Warm, Dry, Intact EKG INTERPRETATION EKG Date: 05/24/17 (Telemetry this morning shows a QTc interval of 400. We'll repeat EKG today.) - Problem List & Annotations (1) Hypovolemia associated with vomiting SNOMED Code(s): 54037427 Code(s): E86.1 - HYPOVOLEMIA Status: Acute Current Visit: Yes Annotation/Comment:: Continue IV fluids at maintenance dose. Patient taking very little by mouth but having no further vomiting. (2) Chronic pancreatitis due to acute alcohol intoxication SNOMED Code(s): 309937134 Code(s): K86.0 - ALCOHOL-INDUCED CHRONIC PANCREATITIS Status: Acute Current Visit: No Annotation/Comment:: Pain is improved. Symptoms improved. Only one dose of Ativan required for withdrawal symptoms so far today. Continue to monitor. Recommend involuntary commitment. (3) Chronic alcoholic hepatitis SNOMED Code(s): 875927108 Code(s): K70.10 - ALCOHOLIC HEPATITIS WITHOUT ASCITES Status: Acute Current Visit: Yes Annotation/Comment:: LFTs improved this morning. (4) Hypokalemia SNOMED Code(s): 81193763 Code(s): E87.6 - HYPOKALEMIA Status: Acute Current Visit: Yes Annotation/Comment:: Currently replacing potassium IV. (5) Hypomagnesemia SNOMED Code(s): 375070014 Code(s): E83.42 - HYPOMAGNESEMIA Status: Acute Current Visit: Yes Annotation/Comment:: Replacing magnesium IV. Follow daily. (6) Metabolic acidosis SNOMED Code(s): 18990398 Code(s): E87.2 - ACIDOSIS Status: Acute Current Visit: No Annotation/ Comment:: Resolved. (7) Alcoholism SNOMED Code(s): 9315539 Code(s): F10.20 - ALCOHOL DEPENDENCE, UNCOMPLICATED Status: Acute Current Visit: No Annotation/Comment:: Continue CIWA protocol for withdrawal. Continue to replace electrolytes and fluid as needed. Vitamins by mouth or IV as needed. Again, recommend commitment. (8) CAD (coronary atherosclerotic disease) SNOMED Code(s): 986787431 Code(s): I25.10 - ATHSCL HEART DISEASE OF [place] CORONARY ARTERY W/O ANG PCTRS Status: Acute Current Visit: Yes Annotation/Comment:: Restart oral beta ike. (9) QT prolongation SNOMED Code(s): 004313302 Code(s): R94.31 - ABNORMAL ELECTROCARDIOGRAM [ECG] [EKG] Status: Acute Current Visit: Yes Annotation/Comment:: Appears to be resolved on telemetry. We'll recheck EKG today. Continue oral beta ike. Discussed with patient this morning that she needs to avoid medications that prolong the QT interval like Zofran, Levaquin, azithromycin, etc. - Problem List Review Problem List Initiated/Reviewed/Updated: Yes - My Orders Last 24 Hours: My Active Orders 05/23/17 13:30 Potassium Chloride 40 meq Sodium Chloride 0.45% 1,000 ml IV Q8H 05/23/17 14:00 Thiamine [Vitamin B-1] 100 mg IV DAILY 05/23/17 14:13 fentaNYL [Sublimaze] 50 mcg IVPUSH Q30M PRN 05/23/17 14:18 Prochlorperazine [Compro] 25 mg RECTAL Q12H PRN 05/23/17 15:48 EKG Documentation Completion [RC] ASDIRECTED EKG 12 Lead [EK] Stat 05/23/17 16:05 Code Status [Resuscitation Status] Routine 05/23/17 16:10 Communication Order [RC] DAILY 05/23/17 16:20 Patient Status [ADT] Routine 05/24/17 08:23 EKG 12 Lead [EK] Routine 05/24/17 08:24 EKG Documentation Completion [RC] ASDIRECTED 05/24/17 09:00 NaPh,Mello-Db/K Ph,MB-DB [Phos-NaK Powder] 1 each PO QID 05/24/17 12:00 Metoprolol Tartrate [Lopressor] 12.5 mg PO Q12HR - Plan Plan:: Discussed CODE STATUS at length with the patient and her separately. The patient tells me that she would like full medical care up to the point of . However if she gets so sick that she dies, she does not want resuscitation. No chest compressions, no CPR, no electric shocks. She feels her quality of life is very poor and if she dies, she really doesn't have much to live for. I reviewed this with the patient's and he feels what she wishes is what he would like to do but he does want to make sure that she gets medical care if what's going on is fixable. I again stressed to him that a Band- Aid on a hemorrhage is not helpful and for this patient as we continue to try to treat the symptoms of her alcohol abuse without treating her alcohol abuse ultimately she will from the disease. We need to treat her alcoholism if we are going to have any lasting impact in preventing her . At this time the patient's CODE STATUS is DNR/Yes intubation, YES full medical support up to the point of . However, again stressed to the patient and her that the only treatment that will prevent her from dying is if she stops drinking.
[2017-05-24] MEDS: Potassium Phosphate,Mb-Db/Sodium Phosphate,Mb-Db Packet PO SCH ×4 (10:23→20:40)
[2017-05-24] MEDS: Metoprolol Tartrate 25 MG Tab PO SCH ×2 (13:38→23:46)
[2017-05-24] MEDS: Sodium Chloride 0.9% 10 ML Syringe FLUSH PRN (23:48)
[2017-05-25] MEDS: fentaNYL 100 MCG/2 ML SDV IVPUSH PRN (03:39)
[2017-05-25] MEDS: Sodium Chloride 0.9% 10 ML Syringe FLUSH PRN (03:42)
[2017-05-25] MEDS: Pantoprazole 40 MG Tab.CR PO SCH ×2 (05:47→05:52)
[2017-05-25] MEDS: Acetaminophen 325 MG Tab PO PRN ×4 (07:33→21:19)
[2017-05-25] MEDS: Potassium Phosphate,Mb-Db/Sodium Phosphate,Mb-Db Packet PO SCH ×4 (08:59→21:19)
[2017-05-25] MEDS: Multivitamin Tab PO SCH (08:59)
[2017-05-25] MEDS: Thiamine 100 MG Tab PO SCH (08:59)
[2017-05-25] MEDS: Folic Acid 1 MG Tab PO SCH (08:59)
--- NOTE | 2017-05-25 12:13 | PCM.PN ---
- General Info Date of Service: 05/25/17 Subjective Update: Patient is feeling improved today. Still has some abdominal pain but no nausea, no vomiting, no diarrhea. No chest pain, no shortness of breath. She refused blood draw this morning because she is tired of giving blood. - Patient Data Vitals - Most Recent: Last Vital Signs Temp 36.8 C 05/25/17 03:25 Pulse 87 05/25/17 03:25 Resp 20 05/25/17 03:25 BP 119/72 05/25/17 03:25 Pulse Ox 99 05/25/17 03:25 Weight - Most Recent: 58.06 kg I&O - Last 24 Hours: Intake & Output 05/24/17 05/25/17 05/25/17 22:59 06:59 14:59 Intake Total 1917 100 Output Total 500 Balance 1917 -400 Lab Results Last 24 Hours: Laboratory Results - last 24 hr 05/25/17 05/25/17 Range/Units 09:00 09:00 WBC 4.3 L (4.5-12.0) X10-3/uL RBC 3.92 (3.23-5.20) x10(6)uL Hgb 13.1 (11.5-15.5) g/dL Hct 37.6 (30.0-51.3) % MCV 95.9 (80-96) fL MCH 33.4 (27.7-33.6) pg MCHC 34.8 (32.2-35.4) g/dL RDW 12.3 (11.5-15.5) % Plt Count 72 L (125-369) X10(3)uL MPV 8.9 (7.4-10.4) fL Neut % (Auto) 57.3 (46-82) % Lymph % (Auto) 27.3 (13-37) % [place] % (Auto) 9.9 (4-12) % Eos % (Auto) 2 (1.0-5.0) % Baso % (Auto) 4 H (0-2) % Neut # (Auto) 2.4 (1.6-8.3) # Lymph # (Auto) 1.2 (0.6-5.0) # [place] # (Auto) 0.4 (0.0-1.3) # Eos # (Auto) 0.1 (0.0-0.8) # Baso # (Auto) 0.2 (0.0-0.2) # Sodium 135 (135-145) mmol/L Potassium 3.0 L (3.5-5.3) mmol/L Chloride 98 L (100-110) mmol/L Carbon Dioxide 22 (21-32) mmol/L BUN 2 L (7-18) mg/dL Creatinine 0.8 (0.55-1.02) mg/dL Est Cr Clr Drug Dosing 76.25 mL/min Estimated GFR (MDRD) > 60 (>60) BUN/Creatinine Ratio 2.5 L (9-20) Glucose 169 H (80-116) mg/dL Calcium 8.3 L (8.6-10.2) mg/dL Total Bilirubin 1.2 (0.1-1.3) mg/dL AST 130 H (5-25) IU/L ALT 110 H D (12-36) U/L Alkaline Phosphatase 197 H (56-112) IU/L Total Protein 6.1 (6.0-8.0) g/dL Albumin 3.0 L (3.5-5.2) g/dL Globulin 3.1 g/dL Albumin/Globulin Ratio 1.0 Med Orders - Current: Current Medications Acetaminophen (Tylenol) 650 mg PO Q4H PRN PRN Reason: Pain (Mild 1-3)/fever Last Admin: 05/25/17 07:33 Dose: 650 mg Fentanyl (Sublimaze) 50 mcg IVPUSH Q30M PRN PRN Reason: Pain greater than 6 Last Admin: 05/25/17 03:39 Dose: 50 mcg Folic Acid (Folic Acid) 1 mg PO DAILY [facility] Last Admin: 05/25/17 08:59 Dose: 1 mg Sodium Chloride (Normal Saline) 1,000 mls @ 999 mls/hr IV ASDIRECTED [facility] Stop: 05/27/17 10:00 Last Admin: 05/23/17 10:28 Dose: 999 mls/hr Sodium Chloride (Normal Saline) 1,000 mls @ 999 mls/hr IV ASDIRECTED [facility] Last Admin: 05/23/17 11:30 Dose: 999 mls/hr Lorazepam (Ativan) 0 mg PO ASDIRECTED [facility] PRN Reason: Protocol Last Admin: 05/24/17 07:38 Dose: 1 mg Metoprolol Tartrate (Lopressor) 12.5 mg PO Q12H [facility] Last Admin: 05/24/17 23:46 Dose: 12.5 mg Multivitamins/Minerals/Vitamin C (Tab-A-[place]helby) 1 tab PO DAILY [facility] Last Admin: 05/25/17 08:59 Dose: 1 tab Pantoprazole Sodium (Protonix) 40 mg PO DAILY@0600 [facility] Last Admin: 05/25/17 05:52 Dose: 40 mg Potassium Phos/Sodium Phos (Phos-Nak Powder) 1 each PO QID [facility] Last Admin: 05/25/17 08:59 Dose: 1 each Prochlorperazine Maleate (Compro) 25 mg RECTAL Q12H PRN PRN Reason: Nausea Sodium Chloride (Saline Flush) 10 ml FLUSH ASDIRECTED PRN PRN Reason: Keep Vein Open Last Admin: 05/25/17 03:42 Dose: 10 ml Thiamine HCl (Vitamin B-1) 100 mg PO DAILY [facility] Last Admin: 05/25/17 08:59 Dose: 100 mg Discontinued Medications Magnesium Sulfate (Magnesium Sulfate 2 Gm In Water 50 Ml) 50 mls @ 25 mls/hr IV ONETIME ONE Stop: 05/23/17 15:29 Last Admin: 05/23/17 13:40 Dose: 25 mls/hr Potassium Chloride 40 meq/ (Sodium Chloride) 1,020 mls @ 125 mls/hr IV Q8H [facility] Stop: 05/24/17 21:29 Last Infusion: 05/24/17 23:49 Dose: Infused Ibuprofen (Motrin) 400 mg PO Q6H PRN PRN Reason: Pain (mild 1-3) Ketorolac Tromethamine (Toradol) 30 mg IVPUSH ONETIME ONE Stop: 05/23/17 10:36 Last Admin: 05/23/17 10:43 Dose: 30 mg Metoprolol Tartrate (Lopressor) 2.5 mg IVPUSH Q4H [facility] Last Admin: 05/24/17 07:39 Dose: 2.5 mg Ondansetron HCl (Zofran) 4 mg IVPUSH ONETIME ONE Stop: 05/23/17 10:03 Last Admin: 05/23/17 10:28 Dose: 4 mg Ondansetron HCl (Zofran) 4 mg IVPUSH ONETIME ONE Stop: 05/23/17 11:24 Last Admin: 05/23/17 11:57 Dose: 4 mg Ondansetron HCl (Zofran Odt) 4 mg PO Q4H PRN PRN Reason: nausea, able to take PO Pantoprazole Sodium (Protonix Iv) 40 mg IV DAILY [facility] Last Admin: 05/24/17 08:00 Dose: 40 mg Thiamine HCl (Vitamin B-1) 100 mg IV DAILY [facility] Last Admin: 05/24/17 08:00 Dose: 100 mg - Exam General: Alert, Oriented, Cooperative HEENT: Pupils Equal, Pupils Reactive Neck: Supple Lungs: Clear to Auscultation, Normal Respiratory Effort Cardiovascular: Regular Rate, Regular Rhythm, No Murmurs GI/Abdominal Exam: Normal Bowel Sounds, Soft, Tender (Diffusely tender but less so than yesterday. Bowel sounds are active today.) Back Exam: Normal Inspection Extremities: Normal Inspection, No Pedal Edema Psy/Mental Status: Alert (Irritable.) - Problem List & Annotations (1) Hypovolemia associated with vomiting SNOMED Code(s): 55962156 Code(s): E86.1 - HYPOVOLEMIA Status: Acute Current Visit: Yes Annotation/Comment:: Taking by mouth intake without difficulty. Advance to full liquid diet. Likely will be ready for discharge tomorrow. (2) Chronic pancreatitis due to acute alcohol intoxication SNOMED Code(s): 533374053 Code(s): K86.0 - ALCOHOL-INDUCED CHRONIC PANCREATITIS Status: Acute Current Visit: No Annotation/Comment:: Pain is improved. Symptoms improved. Advance diet as tolerated. Recommend involuntary commitment. Discussed this at length with the patient today. Likely ready for discharge home tomorrow. (3) Chronic alcoholic hepatitis SNOMED Code(s): 832539666 Code(s): K70.10 - ALCOHOLIC HEPATITIS WITHOUT ASCITES Status: Acute Current Visit: Yes Annotation/Comment:: LFTs improved this morning. (4) Hypokalemia SNOMED Code(s): 00552738 Code(s): E87.6 - HYPOKALEMIA Status: Acute Current Visit: Yes Annotation/Comment:: Still low. Oral replacement will be necessary. (5) Hypomagnesemia SNOMED Code(s): 968553108 Code(s): E83.42 - HYPOMAGNESEMIA Status: Acute Current Visit: Yes Annotation/Comment:: Continue PO supplementation as if she returns to drinking she will continue to have a deficit. (6) Metabolic acidosis SNOMED Code(s): 09508269 Code(s): E87.2 - ACIDOSIS Status: Acute Current Visit: No Annotation/ Comment:: Resolved. (7) Alcoholism SNOMED Code(s): 4285937 Code(s): F10.20 - ALCOHOL DEPENDENCE, UNCOMPLICATED Status: Acute Current Visit: No Annotation/Comment:: Discussed ETOH cessation at length with the patient. If she does not stop drinking, I believe she will from her alcoholism. Recommended complete sobriety. The patient is pre- contemplative to stopping drinking. She will not consider cessation. Recommend involuntary commitment for life-saving intervention. (8) CAD (coronary atherosclerotic disease) SNOMED Code(s): 688017416 Code(s): I25.10 - ATHSCL HEART DISEASE OF [place] CORONARY ARTERY W/O ANG PCTRS Status: Acute Current Visit: Yes Annotation/Comment:: On metoprolol Tartrate BID. Continue. (9) QT prolongation SNOMED Code(s): 372185733 Code(s): R94.31 - ABNORMAL ELECTROCARDIOGRAM [ECG] [EKG] Status: Acute Current Visit: Yes Annotation/Comment:: Baseline 500 without QT prolongation meds. Max here was 579 after zofran. Continue BB therapy and avoid QT prolongation meds. (10) Thrombocytopenia SNOMED Code(s): 726840613 Code(s): D69.6 - THROMBOCYTOPENIA, UNSPECIFIED Status: Acute Current Visit: Yes Annotation/Comment:: Secondary to alcohol abuse. Will need to be followed as outpatient. Patient aware. - Problem List Review Problem List Initiated/Reviewed/Updated: Yes - My Orders Last 24 Hours: My Active Orders 05/24/17 11:05 Patient Status [ADT] Routine 05/24/17 12:00 Metoprolol Tartrate [Lopressor] 12.5 mg PO Q12H 05/25/17 06:00 Pantoprazole [ProTONIX] 40 mg PO DAILY@0600 05/25/17 09:00 Thiamine [Vitamin B-1] 100 mg PO DAILY
[2017-05-25] MEDS: Metoprolol Tartrate 25 MG Tab PO SCH (12:18)
[2017-05-25] MEDS: Magnesium Oxide 400 MG Tab PO SCH (12:22)
[2017-05-25] MEDS: Potassium Chloride 20 MEQ Tab.ER PO SCH ×2 (12:22→21:19)
[2017-05-26] MEDS: Metoprolol Tartrate 25 MG Tab PO SCH ×2 (00:15→12:00)
[2017-05-26] MEDS: fentaNYL 100 MCG/2 ML SDV IVPUSH PRN (00:21)
[2017-05-26] MEDS: Sodium Chloride 0.9% 10 ML Syringe FLUSH PRN (00:22)
[2017-05-26] MEDS: Pantoprazole 40 MG Tab.CR PO SCH (06:05)
[2017-05-26] MEDS: Potassium Chloride 20 MEQ Tab.ER PO SCH (09:19)
[2017-05-26] MEDS: Magnesium Oxide 400 MG Tab PO SCH (09:20)
[2017-05-26] MEDS: Thiamine 100 MG Tab PO SCH (09:22)
[2017-05-26] MEDS: Multivitamin Tab PO SCH (09:22)
[2017-05-26] MEDS: Potassium Phosphate,Mb-Db/Sodium Phosphate,Mb-Db Packet PO SCH ×2 (09:22→13:44)
[2017-05-26] MEDS: LORazepam 1 MG Tab PO SCH (09:34)
--- NOTE | 2017-05-26 10:54 | PCM.DCSUM1 ---
Discharge Summary - Hospital Course Free Text/Narrative:: Date of admission: 05/23/17 Date of discharge: 05/26/17 Admission diagnosis: Dehydration/nausea/vomiting, secondary to chronic pancreatitis and alcoholism, with significant electrolyte abnormalities. Discharge diagnosis: Same Secondary diagnoses: #1 profound hypokalemia #2 metabolic acidosis #3 hypomagnesemia #4 elevated LFTs with right upper quadrant ultrasound showing gallbladder sludge but no thickening of the gallbladder wall and normal common bile duct size. Patient has hepatic steatosis. #5 QTC prolongation. Patient's QTC was as high as 579 after receiving a dose of Zofran. Beta ike was restarted IV and the patient had no arrhythmias. Stress to the patient and her that she should no longer be given medications that cause QTC prolongation unless lifesaving and in the hospital setting where she would be acutely monitored. #6 thrombocytopenia, likely secondary to alcoholism. History of present illness: Patient is a chronic alcoholic who is very debilitated at home, drinking normally a half liter of whiskey a day and one or 2 beers as well. She was admitted on the day of admission with her 6th hospitalization in 12 months for nausea, vomiting and dehydration secondary to alcohol abuse and chronic pancreatitis. Hospital course: Patient's electrolytes were replaced. She was given IV fluids to resuscitate her. Counseling was given on the likelihood that she will from her alcoholism if she does not stop drinking. Patient was uninterested in treatment or inpatient commitment. Because of the severity of her illness and her frequent hospitalizations, I did recommend that she be evaluated further for vulnerable adult status and involuntary commitment through the [facility]. - Discharge Data Discharge Date: 05/26/17 Discharge Disposition: Home, W Home Health Agency 06 Condition: Good - Discharge Diagnosis/Problem(s) (1) Hypovolemia associated with vomiting SNOMED Code(s): 21194891 ICD Code: E86.1 - HYPOVOLEMIA Status: Acute Current Visit: Yes Problem Details: One episode of vomiting this morning after drinking too quickly, the patient feels. No nausea. Continue full liquids and patient will be discharged home on this. No Zofran because of QT prolongation. (2) Chronic pancreatitis due to acute alcohol intoxication SNOMED Code(s): 295456636 ICD Code: K86.0 - ALCOHOL-INDUCED CHRONIC PANCREATITIS Status: Acute Current Visit: No Problem Details: Clinically improved, ready for discharge. Patient will likely have abdominal pain intermittently for the rest of her life even if she does not return to drinking. (3) Chronic alcoholic hepatitis SNOMED Code(s): 622356101 ICD Code: K70.10 - ALCOHOLIC HEPATITIS WITHOUT ASCITES Status: Acute Current Visit: Yes Problem Details: Stable. (4) Hypokalemia SNOMED Code(s): 16650955 ICD Code: E87.6 - HYPOKALEMIA Status: Acute Current Visit: Yes Problem Details: Continue on by mouth replacement outpatient. (5) Hypomagnesemia SNOMED Code(s): 349717029 ICD Code: E83.42 - HYPOMAGNESEMIA Status: Acute Current Visit: Yes Problem Details: Continue PO supplementation as outpatient as if she returns to drinking she will continue to have a deficit. (6) Metabolic acidosis SNOMED Code(s): 52807476 ICD Code: E87.2 - ACIDOSIS Status: Acute Current Visit: No Problem Details: Resolved. (7) Alcoholism SNOMED Code(s): 9533327 ICD Code: F10.20 - ALCOHOL DEPENDENCE, UNCOMPLICATED Status: Acute Current Visit: No Problem Details: Discussed ETOH cessation at length with the patient. If she does not stop drinking, I believe she will from her alcoholism. Recommended complete sobriety. The patient is pre-contemplative to stopping drinking. She will not consider cessation. Recommend involuntary commitment for life-saving intervention. (8) CAD (coronary atherosclerotic disease) SNOMED Code(s): 011847617 ICD Code: I25.10 - ATHSCL HEART DISEASE OF [place] CORONARY ARTERY W/O ANG PCTRS Status: Acute Current Visit: Yes Problem Details: On metoprolol Tartrate BID. Continue. (9) QT prolongation SNOMED Code(s): 387126685 ICD Code: R94.31 - ABNORMAL ELECTROCARDIOGRAM [ECG] [EKG] Status: Acute Current Visit: Yes Problem Details: Baseline 500 without QT prolongation meds. Max here was 579 after zofran. Continue BB therapy and avoid QT prolongation meds. (10) Thrombocytopenia SNOMED Code(s): 989592683 ICD Code: D69.6 - THROMBOCYTOPENIA, UNSPECIFIED Status: Acute Current Visit: Yes Problem Details: Secondary to alcohol abuse. Will need to be followed as outpatient. Patient aware. (11) Debility SNOMED Code(s): 10168729 ICD Code: R53.81 - OTHER MALAISE Status: Acute Current Visit: Yes Problem Details: Patient very immobile both here and at home. PT and OT to evaluate and the patient is willing to have that assessment. If we can get home health and physical therapy in to help mobilize her that would greatly improve her health overall. - Patient Summary/Data Consults: Consultations 05/26/17 10:30 OT Evaluation and Treatment [CONS] Routine Please Evaluate and Treat. OT Reason for Consult: ADL's This query below is only for informational purposes and is not editable. Admission Diagnosis/Problem: Hypovolemia PT Evaluation and Treatment [CONS] Routine Please Evaluate and Treat. PT Reason for Consult: Ambulation This query below is only for informational purposes and is not editable. Admission Diagnosis/Problem: Hypovolemia - Discharge Plan Prescriptions/Med Rec: Magnesium Oxide 400 mg PO DAILY #90 tablet NaPh,Mb-Db/K Ph,MB-DB [Phos-NaK Powder] 1 each PO BID #60 packet Potassium Chloride [Klor-Con M20] 20 meq PO BID #60 tab.er Thiamine [Vitamin B-1] 100 mg PO DAILY #30 tablet Home Medications: Home Meds Sucralfate [Carafate] 1 gm PO QIDACANDBED 10/25/16 [History] Folic Acid 1 mg PO DAILY 04/24/17 [History] Nitroglycerin [Nitrostat] 0.4 mg SL ASDIRECTED PRN 04/24/17 [History] atorvaSTATin [Lipitor] 20 mg PO BEDTIME 04/24/17 [History] hydrOXYzine Pamoate [Hydroxyzine Pamoate] 25 mg PO TID PRN 04/24/17 [History] Promethazine [Phenergan] 25 mg PO Q6H PRN #20 tablet 04/25/17 [Rx] Magnesium Oxide 400 mg PO DAILY #90 tablet 05/26/17 [Rx] Metoprolol Tartrate [Lopressor] 12.5 mg PO Q12H tablet 05/26/17 [Rx] Multivitamins [Tab-A-Shelby] 1 tab PO DAILY tablet 05/26/17 [Rx] NaPh,Mb-Db/K Ph,MB-DB [Phos-NaK Powder] 1 each PO BID #60 packet 05/26/17 [Rx] Pantoprazole [ProTONIX] 40 mg PO DAILY@0600 tab.cr 05/26/17 [Rx] Potassium Chloride [Klor-Con M20] 20 meq PO BID #60 tab.er 05/26/17 [Rx] Thiamine [Vitamin B-1] 100 mg PO DAILY #30 tablet 05/26/17 [Rx] Patient Handouts: Nausea and Vomiting, Adult, Txmy-rs-Sadv, Dehydration, Adult , [id number], Finding Treatment for Addiction, Fall Prevention in Hospitals, Adult, Venous Thromboembolism Prevention Forms: ED Department Discharge Referrals: Rocco Gonsales MD [Primary Care Provider] - - Discharge Summary/Plan Comment DC Time >30 min.: Yes - General Info Date of Service: 05/26/17 Subjective Update: On the day of discharge, patient had one episode of vomiting in the morning after drinking applesauce too quickly. She had no other nausea or vomiting. She had no chest pain or shortness of breath. She did have a low backache which she attributed to being in bed so much. She still had a mild discomfort in her abdomen but it was much improved from prior. - Patient Data Vitals - Most Recent: Last Vital Signs Temp 36.6 C 05/26/17 08:00 Pulse 82 05/26/17 08:00 Resp 18 05/26/17 08:00 BP 95/58 L 05/26/17 08:00 Pulse Ox 97 05/26/17 08:00 Weight - Most Recent: 58.06 kg I&O - Last 24 hours: Intake & Output 05/25/17 05/26/17 05/26/17 22:59 06:59 14:59 Intake Total 100 Output Total 800 275 200 Balance -700 -275 -200 Lab Results - Last 24 hrs: Laboratory Results - last 24 hr 05/25/17 Range/Units 09:00 Phosphorus 2.7 (2.6-4.6) mg/dL Magnesium 1.2 L* (1.8-2.5) mg/dL Med Orders - Current: Current Medications Acetaminophen (Tylenol) 650 mg PO Q4H PRN PRN Reason: Pain (Mild 1-3)/fever Last Admin: 05/25/17 21:19 Dose: 650 mg Fentanyl (Sublimaze) 50 mcg IVPUSH Q30M PRN PRN Reason: Pain greater than 6 Last Admin: 05/26/17 00:21 Dose: 50 mcg Folic Acid (Folic Acid) 1 mg PO DAILY [facility] Last Admin: 05/25/17 08:59 Dose: 1 mg Sodium Chloride (Normal Saline) 1,000 mls @ 999 mls/hr IV ASDIRECTED [facility] Stop: 05/27/17 10:00 Last Admin: 05/23/17 10:28 Dose: 999 mls/hr Sodium Chloride (Normal Saline) 1,000 mls @ 999 mls/hr IV ASDIRECTED [facility] Last Admin: 05/23/17 11:30 Dose: 999 mls/hr Lorazepam (Ativan) 0 mg PO ASDIRECTED [facility] PRN Reason: Protocol Last Admin: 05/26/17 09:34 Dose: 1 mg Magnesium Oxide (Magnesium Oxide) 400 mg PO DAILY [facility] Last Admin: 05/26/17 09:20 Dose: 400 mg Metoprolol Tartrate (Lopressor) 12.5 mg PO Q12H [facility] Last Admin: 05/26/17 00:15 Dose: 12.5 mg Multivitamins/Minerals/Vitamin C (Tab-A-Shelby) 1 tab PO DAILY [facility] Last Admin: 05/26/17 09:22 Dose: 1 tab Pantoprazole Sodium (Protonix) 40 mg PO DAILY@0600 [facility] Last Admin: 05/26/17 06:05 Dose: 40 mg Potassium Chloride (Klor-Con M20) 20 meq PO BID [facility] Last Admin: 05/26/17 09:19 Dose: 20 meq Potassium Phos/Sodium Phos (Phos-Nak Powder) 1 each PO QID [facility] Last Admin: 05/26/17 09:22 Dose: 1 each Prochlorperazine Maleate (Compro) 25 mg RECTAL Q12H PRN PRN Reason: Nausea Sodium Chloride (Saline Flush) 10 ml FLUSH ASDIRECTED PRN PRN Reason: Keep Vein Open Last Admin: 05/26/17 00:22 Dose: 10 ml Thiamine HCl (Vitamin B-1) 100 mg PO DAILY [facility] Last Admin: 05/26/17 09:22 Dose: 100 mg Discontinued Medications Magnesium Sulfate (Magnesium Sulfate 2 Gm In Water 50 Ml) 50 mls @ 25 mls/hr IV ONETIME ONE Stop: 05/23/17 15:29 Last Admin: 05/23/17 13:40 Dose: 25 mls/hr Potassium Chloride 40 meq/ (Sodium Chloride) 1,020 mls @ 125 mls/hr IV Q8H [facility] Stop: 05/24/17 21:29 Last Infusion: 05/24/17 23:49 Dose: Infused Ibuprofen (Motrin) 400 mg PO Q6H PRN PRN Reason: Pain (mild 1-3) Ketorolac Tromethamine (Toradol) 30 mg IVPUSH ONETIME ONE Stop: 05/23/17 10:36 Last Admin: 05/23/17 10:43 Dose: 30 mg Metoprolol Tartrate (Lopressor) 2.5 mg IVPUSH Q4H [facility] Last Admin: 05/24/17 07:39 Dose: 2.5 mg Ondansetron HCl (Zofran) 4 mg IVPUSH ONETIME ONE Stop: 05/23/17 10:03 Last Admin: 05/23/17 10:28 Dose: 4 mg Ondansetron HCl (Zofran) 4 mg IVPUSH ONETIME ONE Stop: 05/23/17 11:24 Last Admin: 05/23/17 11:57 Dose: 4 mg Ondansetron HCl (Zofran Odt) 4 mg PO Q4H PRN PRN Reason: nausea, able to take PO Pantoprazole Sodium (Protonix Iv) 40 mg IV DAILY [facility] Last Admin: 05/24/17 08:00 Dose: 40 mg Thiamine HCl (Vitamin B-1) 100 mg IV DAILY [facility] Last Admin: 05/24/17 08:00 Dose: 100 mg - Exam General: Reports: Alert, Oriented, Cooperative, No Acute Distress HEENT: Reports: Pupils Equal, Pupils Reactive Neck: Reports: Supple Lungs: Reports: Clear to Auscultation, Normal Respiratory Effort Cardiovascular: Reports: Regular Rate, Regular Rhythm, No Murmurs GI/Abdominal Exam: Normal Bowel Sounds, Soft, Tender (Diffusely tender, no guarding) Back Exam: Reports: Normal Inspection Extremities: Normal Inspection, Normal Range of Motion, No Pedal Edema Skin: Reports: Warm, Dry, Intact Psy/Mental Status: Reports: Alert, Normal Affect, Normal Mood *Q Meaningful Use (DIS) - VTE *Q VTE Criteria *Q: - Stroke *Q Stroke Criteria *Q: - AMI *Q AMI Criteria *Q:
[2017-05-26] MEDS: Folic Acid 1 MG Tab PO SCH (11:15)
[2017-05-26 13:40] VITALS: BP 93/55
== END 2017-05-26 15:20 | disposition home health service (06) | DRG 897 ==
LOC: FB.ED 09:28 → FB.MS 12:10 → FB.ICU 16:20 → FB.MS 05-24 11:05
PROVIDERS: ADMIT Family Medicine; ATTEND Family Medicine
DX: F10.288 Alcohol dependence with other alcohol-induced disorder (principal); K86.0 Alcohol-induced chronic pancreatitis; E87.2 Acidosis; E86.1 Hypovolemia; K70.10 Alcoholic hepatitis without ascites; Y90.0 Blood alcohol level of less than 20 mg/100 ml; E86.0 Dehydration; R94.31 Abnormal electrocardiogram [ECG] [EKG]; E87.6 Hypokalemia; E83.42 Hypomagnesemia; Z66 Do not resuscitate; R11.2 Nausea with vomiting, unspecified; T51.9 Toxic effect of unspecified alcohol; D69.6 Thrombocytopenia, unspecified; K21.9 Gastro-esophageal reflux disease without esophagitis; I25.119 Atherosclerotic heart disease of native coronary artery with unspecified angina pectoris; Z87.440 Personal history of urinary (tract) infections; K76.0 Fatty (change of) liver, not elsewhere classified; R53.81 Other malaise
CPT/HCPCS: 36415; 76705; 80053; 82150; 83605; 83735; 84100; 84484; 85025; 85610; 86140; 93005; 97161-GP; A9270-GY; C9113; G0480; J1885; J2405; J3010; J3411; J3475; J3480; J3490; J7040; J7050

== ENCOUNTER 2017-09-13 09:45 | Emergency (ER) | payer MEDICAID, SELFPAY ==
[2017-09-13] MEDS ORDERED: Sodium Chloride 0.9% 1,000 ML IV ONE (10:07)
--- NOTE | 2017-09-13 10:09 | EDM.PDOC ---
ED HPI GENERAL MEDICAL PROBLEM - General Chief Complaint: Gastrointestinal Problem Stated Complaint: STOMACH PAIN, VOMITTING BACK PAIN Time Seen by Provider: 09/13/17 09:45 Source of Information: Reports: Patient, Family () History Limitations: Reports: Altered Mental Status (poor historian) - History of Present Illness INITIAL COMMENTS - FREE TEXT/NARRATIVE: 52 y.o.w.f came to the ed with her due to N/V in the past few days. Pt is a chronic ETOH abuser and had many visits for same in this ED in the past. Pt has a H/O chonic low back pain as well. Pt herself is not able to give a HPT , which was given by her ,. Last ETOH intake was a few days ago(?). No C/ , no dizziness. No F/C. No other acute medical issues. BP 102/67 Pulse 144 Temp 37.9 Puls ox 99 RR 20 Onset Date: 09/07/17 Onset Time: 06:00 Duration: Week(s):, Chronic Location: Reports: Abdomen, Generalized Quality: Reports: Same as Previous Episode Severity: Moderate Improves with: Reports: Rest Worsens with: Reports: Movement Context: Reports: Other (chronic ETOH abuse) Associated Symptoms: Reports: Malaise, Nausea/Vomiting, Weakness Treatments WIRE PULLER: Reports: Other (see below) (none) gneral Pain Score (Numeric/FACES): 4 - Related Data Allergies Allergy/AdvReac Type Severity Reaction Status Date / Time ondansetron AdvReac Severe Arrhythmias Verified 09/13/17 10:12 [From Zofran (as hydrochloride)] Home Meds: Home Meds Sucralfate [Carafate] 1 gm PO QIDACANDBED 10/25/16 [History] Folic Acid 1 mg PO DAILY 04/24/17 [History] Nitroglycerin [Nitrostat] 0.4 mg SL ASDIRECTED PRN 04/24/17 [History] atorvaSTATin [Lipitor] 20 mg PO BEDTIME 04/24/17 [History] hydrOXYzine Pamoate [Hydroxyzine Pamoate] 25 mg PO TID PRN 04/24/17 [History] Promethazine [Phenergan] 25 mg PO Q6H PRN #20 tablet 04/25/17 [Rx] Magnesium Oxide 400 mg PO DAILY #90 tablet 05/26/17 [Rx] Metoprolol Tartrate [Lopressor] 12.5 mg PO Q12H tablet 05/26/17 [Rx] Multivitamins [Tab-A-Shelby] 1 tab PO DAILY tablet 05/26/17 [Rx] NaPh,Mb-Db/K Ph,MB-DB [Phos-NaK Powder] 1 each PO BID #60 packet 05/26/17 [Rx] Pantoprazole [ProTONIX] 40 mg PO DAILY@0600 tab.cr 05/26/17 [Rx] Potassium Chloride [Klor-Con M20] 20 meq PO BID #60 tab.er 05/26/17 [Rx] Thiamine [Vitamin B-1] 100 mg PO DAILY #30 tablet 05/26/17 [Rx] Famotidine [Pepcid] 20 mg PO BID #20 tab 09/13/17 [Rx] Past Medical History HEENT History: Reports: Cataract, Impaired Vision Cardiovascular History: Reports: Angina, [place], Other (See Below) Other Cardiovascular History: Pt reports palpitations Respiratory History: Reports: SOB Gastrointestinal History: Reports: Cholelithiasis, Cirrhosis, Gastritis, GERD Genitourinary History: Reports: UTI, Recurrent 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 Has bilat foot drop. - Infectious Disease History Infectious Disease History: Reports: Chicken Pox Other Infectious Disease History: Unknown. - Past Surgical History HEENT Surgical History: Reports: Cataract Surgery, Tonsillectomy GI Surgical History: Reports: Appendectomy Female Surgical History: Reports: Other (See Below) Other Female Surgeries/Procedures: ? d and Dermatological Surgical History: Reports: Skin Graft Social & Family History - Family History Family Medical History: Unobtainable - Caffeine Use Caffeine Use: Reports: None Other Caffeine Use: Unknown. Patient poor historian at this time. Caffeine Use Comment: Does not use caffeine regularly ED ROS GENERAL - Review of Systems Review Of Systems: Unable To Obtain (poor historian) Constitutional: Reports: Weakness, Weight Loss HEENT: Reports: No Symptoms Respiratory: Reports: No Symptoms Cardiovascular: Reports: No Symptoms Endocrine: Reports: No Symptoms GI/Abdominal: Reports: Abdominal Pain (epigastric) : Reports: No Symptoms Musculoskeletal: Reports: Other (weakness) Skin: Reports: No Symptoms Neurological: Reports: No Symptoms Psychiatric: Reports: No Symptoms Hematologic/Lymphatic: Reports: No Symptoms Immunologic: Reports: No Symptoms ED EXAM, GI/ABD - Physical Exam Exam: See Below Exam Limited By: Physical Impairment (weak) General Appearance: Alert, Mild Distress, Cachetic Eyes: Bilateral: Normal Appearance Ears: Normal External Exam, Normal Canal Nose: Normal Inspection, Normal Mucosa Throat/Mouth: Normal Lips, Normal Voice, No Airway Compromise, Other (dry mucosal membranes) Head: Atraumatic, Normocephalic Neck: Normal Inspection, Supple, Non-Tender, Full Range of Motion Respiratory/Chest: No Respiratory Distress, Lungs Clear, Normal Breath Sounds, No Accessory Muscle Use Cardiovascular: Normal Peripheral Pulses, Tachycardia GI/Abdominal Exam: Normal Bowel Sounds, Tender (epigastric tenderness) (Female) Exam: Deferred Rectal (Female) Exam: Deferred Back Exam: Normal Inspection, Full Range of Motion Extremities: Normal Inspection, Normal Range of Motion, Non-Tender, No Pedal Edema, Normal Capillary Refill Neurological: Alert, Oriented, CN II-XII Intact, Normal Gait Psychiatric: Normal Affect, Depressed Mood Skin Exam: Warm, Dry, Intact, Normal Color, No Rash Lymphatic: No Adenopathy EKG INTERPRETATION EKG Date: 09/13/17 Time: 12:10 Rhythm: NSR Rate (Beats/Min): 139 Foster: Normal P-Wave: Present QRS: Normal ST-T: Normal QT: Normal Comparison: NA - No Prior EKG Course - Vital Signs Text/Narrative:: 52 y.o.w.f came to the ed with her due to N/V in the past few days. Pt is a chronic ETOH abuser and had many visits for same in this ED in the past. Pt has a H/O chonic low back pain as well. Pt herself is not able to give a HPT , which was given by her ,. Last ETOH intake was a few days ago(?). No C/ , no dizziness. No F/C. No other acute medical issues. Denies blood in stool. BP 102/67 Pulse 144 Temp 37.9 Puls ox 99 RR 20 PE: Cachectic 52 y.o.w.f with N/V, drinks nearly daily. Imaging: Not indicated labs: K 2.8 Na 131 Hgb 16.9 HCT 50 ETOH 0.03 UDS neg. Ca 10.7 GFR 37 UA: neg Impression: Hypokalemia, ETOH gastritis, Dehydration, H/O chronic ETOH abuse Tx: Potassium, NS 8.45 am Consultation: Dr. Sales< Hospitalist: Send pt jayesh after hydration, he can nothing do for her. Reexam: Improved Plan: D/C with instructions Last Recorded V/S: Last Vital Signs Temp 37.3 C 09/13/17 17:35 Pulse 139 H 09/13/17 17:35 Resp 16 09/13/17 12:00 BP 111/62 09/13/17 17:35 Pulse Ox 100 09/13/17 17:35 - Orders/Labs/Meds Orders: Active Orders 24 hr Category Date Time Status EKG Documentation Completion [RC] ASDIRECTED Care 09/13/17 11:59 Active UA W/MICROSCOPIC [URIN] Stat Lab 09/13/17 14:45 Ordered EKG 12 Lead [EK] Routine Ther 09/13/17 11:58 Ordered Labs: Laboratory Tests 09/13/17 09/13/17 09/13/17 Range/Units 10:19 10:19 10:19 WBC 12.3 H (4.5-12.0) X10-3/uL RBC 5.12 (3.23-5.20) x10(6)uL Hgb 16.9 H D (11.5-15.5) g/dL Hct 50.0 D (30.0-51.3) % MCV 97.6 H (80-96) fL MCH 33.0 (27.7-33.6) pg MCHC 33.8 (32.2-35.4) g/dL RDW 12.0 (11.5-15.5) % Plt Count 134 (125-369) X10(3)uL MPV 9.4 (7.4-10.4) fL Neut % (Auto) 79.4 (46-82) % Lymph % (Auto) 6.9 L (13-37) % Tillman % (Auto) 7.7 (4-12) % Eos % (Auto) 0 L (1.0-5.0) % Baso % (Auto) 6 H (0-2) % Neut # (Auto) 9.9 H (1.6-8.3) # Lymph # (Auto) 0.8 (0.6-5.0) # [place] # (Auto) 0.9 (0.0-1.3) # Eos # (Auto) 0.0 (0.0-0.8) # Baso # (Auto) 0.7 H (0.0-0.2) # Sodium 131 L (135-145) mmol/L Potassium 2.8 L* (3.5-5.3) mmol/L Chloride 82 L* D (100-110) mmol/L Carbon Dioxide 20 L (21-32) mmol/L BUN 45 H D (7-18) mg/dL Creatinine 1.5 H (0.55-1.02) mg/dL Est Cr Clr Drug Dosing TNP Estimated GFR (MDRD) 37 L (>60) BUN/Creatinine Ratio 30.0 H (9-20) Glucose 211 H (80-116) mg/dL Calcium 10.7 H D (8.6-10.2) mg/dL Urine Color (YELLOW) Urine Appearance (CLEAR) Urine pH (5.0-6.5) Ur Specific [place] (1.010-1.025) Urine Protein (NEGATIVE) mg/dL Urine Glucose (UA) (NEGATIVE) mg/dL Urine Ketones (NEGATIVE) mg/dL Urine Occult Blood (NEGATIVE) Urine Nitrite (NEGATIVE) Urine Bilirubin (NEGATIVE) Urine Urobilinogen (NEGATIVE) mg/dL Ur Leukocyte Esterase (NEGATIVE) Urine RBC (0) Urine WBC (0) Ur Squamous Epith Cells (NS,R,O) Urine Bacteria (NS) Hyaline Casts (NS) Urine Mucus (NS) Ethyl Alcohol < 0.03 (<0.03) % 09/13/17 Range/Units 14:45 WBC (4.5-12.0) X10-3/uL RBC (3.23-5.20) x10(6)uL Hgb (11.5-15.5) g/dL Hct (30.0-51.3) % MCV (80-96) fL MCH (27.7-33.6) pg MCHC (32.2-35.4) g/dL RDW (11.5-15.5) % Plt Count (125-369) X10(3)uL MPV (7.4-10.4) fL Neut % (Auto) (46-82) % Lymph % (Auto) (13-37) % Tillman % (Auto) (4-12) % Eos % (Auto) (1.0-5.0) % Baso % (Auto) (0-2) % Neut # (Auto) (1.6-8.3) # Lymph # (Auto) (0.6-5.0) # Tillman # (Auto) (0.0-1.3) # Eos # (Auto) (0.0-0.8) # Baso # (Auto) (0.0-0.2) # Sodium (135-145) mmol/L Potassium (3.5-5.3) mmol/L Chloride (100-110) mmol/L Carbon Dioxide (21-32) mmol/L BUN (7-18) mg/dL Creatinine (0.55-1.02) mg/dL Est Cr Clr Drug Dosing Estimated GFR (MDRD) (>60) BUN/Creatinine Ratio (9-20) Glucose (80-116) mg/dL Calcium (8.6-10.2) mg/dL Urine Color Yellow (YELLOW) Urine Appearance Slightly cloudy (CLEAR) Urine pH 6.0 (5.0-6.5) Ur Specific [place] 1.010 (1.010-1.025) Urine Protein 30 H (NEGATIVE) mg/dL Urine Glucose (UA) Normal (NEGATIVE) mg/dL Urine Ketones 150 H (NEGATIVE) mg/dL Urine Occult Blood Negative (NEGATIVE) Urine Nitrite Negative (NEGATIVE) Urine Bilirubin Small H (NEGATIVE) Urine Urobilinogen 4 H (NEGATIVE) mg/dL Ur Leukocyte Esterase Negative (NEGATIVE) Urine RBC 0-5 (0) Urine WBC 0-5 (0) Ur Squamous Epith Cells Few H (NS,R,O) Urine Bacteria Few H (NS) Hyaline Casts Occasional H (NS) Urine Mucus Few H (NS) Ethyl Alcohol (<0.03) % Meds: Medications Discontinued Medications Generic Name Dose Route Start Last Admin Trade Name Aris PRN Reason Stop Dose Admin Sodium Chloride 1,000 mls @ 999 mls/hr 09/13/17 10:07 09/13/17 10:07 Normal Saline IV 09/13/17 11:07 Not Given .BOLUS ONE Potassium Chloride/Sodium Chloride 1,000 mls @ 500 mls/hr 09/13/17 10:45 09/24 10:45 Normal Saline With 20 Meq Kcl IV 500 mls/hr ASDIRECTED ERICH Administration Potassium Chloride/Sodium Chloride 1,000 mls @ 500 mls/hr 09/13/17 12:00 09/24 12:45 Normal Saline With 20 Meq Kcl IV 500 mls/hr ASDIRECTED ERICH Administration Metoclopramide HCl 10 mg 09/13/17 10:18 09/13/17 10:48 Reglan IVPUSH 09/13/17 10:19 10 mg ONETIME ONE Administration Pantoprazole Sodium 40 mg 09/13/17 10:19 09/13/17 10:52 Protonix Iv IVPUSH 09/13/17 10:20 40 mg ONETIME ONE Administration Potassium Chloride 40 meq 09/13/17 10:59 09/13/17 11:54 Klor-Con M20 PO 09/13/17 11:00 40 meq ONETIME ONE Administration Departure - Departure Time of Disposition: 16:36 Disposition: Home, Self-Care 01 Condition: Good Clinical Impression: EtOH dependence, Gastritis, Dehydration, Hypercalcemia, Hyponatremia - Discharge Information Prescriptions: Famotidine [Pepcid] 20 mg PO BID #20 tab Referrals: Rocco Gonsales MD [Primary Care Provider] - Forms: ED Department Discharge Additional Instructions: Please increase water intake, please stop drinking ETOH, take Reglan pepcid as recommended, please f/u with your PMD this Friday. Please come back if your symptoms get worse acutely. - My Orders Last 24 Hours: My Active Orders 09/13/17 11:58 EKG 12 Lead [EK] Routine 09/13/17 11:59 EKG Documentation Completion [RC] ASDIRECTED 09/13/17 14:45 UA W/MICROSCOPIC [URIN] Stat - Assessment/Plan Last 24 Hours: My Active Orders 09/13/17 11:58 EKG 12 Lead [EK] Routine 09/13/17 11:59 EKG Documentation Completion [RC] ASDIRECTED 09/13/17 14:45 UA W/MICROSCOPIC [URIN] Stat
[2017-09-13] MEDS ORDERED: Metoclopramide 10 MG/2 ML SDV IVPUSH ONE (10:18)
[2017-09-13] MEDS ORDERED: Pantoprazole 40 MG Vial IVPUSH ONE (10:19)
[2017-09-13] MEDS ORDERED: NS + KCl 20mEq/L 1,000 ML IV SCH ×2 (10:45→12:00)
[2017-09-13] MEDS ORDERED: Potassium Chloride 20 MEQ Tab.ER PO ONE (10:59)
[2017-09-13 17:36] VITALS: BP 111/62
== END 2017-09-13 17:38 | disposition home or self-care (01) ==
LOC: FB.ED 09:45
DX: K29.20 Alcoholic gastritis without bleeding (principal); E83.52 Hypercalcemia; E87.1 Hypo-osmolality and hyponatremia; E86.0 Dehydration; I25.2 Old myocardial infarction; E87.6 Hypokalemia; Z79.899 Other long term (current) drug therapy; Z88.8 Allergy status to other drugs, medicaments and biological substances
CPT/HCPCS: 36415; 80048; 81001; 85025; 93005; 96361; 96374; 96375; 99284; A9270; C9113; G0480; J2765; J3480

== ENCOUNTER 2017-12-10 22:55 | Inpatient (IN) | payer MEDICAID, SELFPAY ==
[2017-12-11] MEDS ORDERED: Sodium Chloride 0.9% 1,000 ML IV ONE (00:41)
--- NOTE | 2017-12-11 01:13 | EDM.PDOC ---
ED HPI GENERAL MEDICAL PROBLEM - General Chief Complaint: General Stated Complaint: VOMITING/CHEST PAIN Time Seen by Provider: 12/10/17 23:30 Source of Information: Reports: Patient History Limitations: Reports: No Limitations - History of Present Illness INITIAL COMMENTS - FREE TEXT/NARRATIVE: Carmen Rivera is a chronic alcohol woman whose chart has 34 for problems on her problem list has had previous documented malnutrition, pancreatitis, inability to walk secondary to frostbite or legs myalgia of her legs chronic low back pain, non-STEMI, coronary disease, chronic alcoholism, prolonged QT interval, anemia, frostbite to hands and feet, bilateral foot drop, previous surgery: appendectomy cataract goel bite grafts to hand and feet. presents tonight because she has not been able to eat or drink fluids, and has been vomiting every time she just attempts to eat or drink fluids for 3 days. she speaks with a very shrill hoarse voice from vomiting. "Every time I try to eat food or drink liquids I vomit." He had a very serious problem and alcoholism for many years. Lower Back Pain Score (Numeric/FACES): 3 (Neck baseline) Lower Pain Score (Numeric/FACES): 2 (Chronic) - Related Data Allergies Allergy/AdvReac Type Severity Reaction Status Date / Time ondansetron AdvReac Severe Arrhythmias Verified 09/13/17 10:12 [From Zofran (as hydrochloride)] Home Meds: Home Meds Sucralfate [Carafate] 1 gm PO QIDACANDBED 10/25/16 [History] Folic Acid 1 mg PO DAILY 04/24/17 [History] Nitroglycerin [Nitrostat] 0.4 mg SL ASDIRECTED PRN 04/24/17 [History] atorvaSTATin [Lipitor] 20 mg PO BEDTIME 04/24/17 [History] hydrOXYzine pamoate [Hydroxyzine Pamoate] 25 mg PO TID PRN 04/24/17 [History] Promethazine [Phenergan] 25 mg PO Q6H PRN #20 tablet 04/25/17 [Rx] Magnesium Oxide 400 mg PO DAILY #90 tablet 05/26/17 [Rx] Metoprolol Tartrate [Lopressor] 12.5 mg PO Q12H tablet 05/26/17 [Rx] Multivitamins [Tab-A-Shelby] 1 tab PO DAILY tablet 05/26/17 [Rx] NaPh,Mb-Db/K Ph,MB-DB [Phos-NaK Powder] 1 each PO BID #60 packet 05/26/17 [Rx] Pantoprazole [ProTONIX] 40 mg PO DAILY@0600 tab.cr 05/26/17 [Rx] Potassium Chloride [Klor-Con M20] 20 meq PO BID #60 tab.er 05/26/17 [Rx] Thiamine [Vitamin B-1] 100 mg PO DAILY #30 tablet 05/26/17 [Rx] Famotidine [Pepcid] 20 mg PO BID #20 tab 09/13/17 [Rx] Lidocaine 5% [Lidoderm 5%] 1 patch TOP DAILY #7 patch 12/11/17 [Rx] Ondansetron [Zofran ODT] 4 mg PO Q6H PRN #8 tab.dis 12/11/17 [Rx] Past Medical History HEENT History: Reports: Cataract, Impaired Vision Cardiovascular History: Reports: Angina, [place], Other (See Below) Other Cardiovascular History: Pt reports palpitations Respiratory History: Reports: SOB Gastrointestinal History: Reports: Cholelithiasis, Cirrhosis, Gastritis, GERD Genitourinary History: Reports: UTI, Recurrent [employer] History: Reports: Musculoskeletal History: Reports: Other (See Below) Other Musculoskeletal History: peripheral neuropathy,airr Neurological History: Reports: Neuropathy, Peripheral Psychiatric History: Reports: Addiction, Anxiety, Panic Attack, Psych Hospitalization(s) Other Psychiatric History: Hx ETOH abuse Endocrine/Metabolic History: Reports: None Hematologic History: Reports: None, Anemia Immunologic History: Reports: None Oncologic (Cancer) History: Reports: None Dermatologic History: Reports: Other (See Below) Other Dermatologic History: severe goel bite to hands bilat & feet. Has bilat foot drop. - Infectious Disease History Infectious Disease History: Reports: Chicken Pox Other Infectious Disease History: Unknown. - Past Surgical History HEENT Surgical History: Reports: Cataract Surgery, Tonsillectomy GI Surgical History: Reports: Appendectomy Female Surgical History: Reports: Other (See Below) Other Female Surgeries/Procedures: ? d and Dermatological Surgical History: Reports: Skin Graft Social & Family History - Family History Family Medical History: Unobtainable - Caffeine Use Caffeine Use: Reports: None Other Caffeine Use: Unknown. Patient poor historian at this time. Caffeine Use Comment: Does not use caffeine regularly ED ROS GENERAL - Review of Systems Review Of Systems: See Below Constitutional: Reports: Weakness, Other (Weakness her has to carry about the house. She can stand that he has to walk with her sure she doesn't fall) HEENT: Reports: No Symptoms, Other (History of cataract surgery) Respiratory: Reports: Cough, Other (Nonproductive congestive cough) Cardiovascular: Reports: No Symptoms, Other (U of prolonged QT syndrome) Endocrine: Reports: Fatigue GI/Abdominal: Reports: Abdominal Pain, Decreased Appetite, Difficulty Swallowing , Vomiting, Other (History of this alcohol like hepatitis) : Reports: No Symptoms Musculoskeletal: Reports: Other (Very extensive muscle weakness) Skin: Reports: No Symptoms Neurological: Reports: Dizziness, Gait Disturbance, Other (History of bilateral foot drop) Hematologic/Lymphatic: Reports: Anemia Immunologic: Reports: No Symptoms Free Text/Narrative/Comment: History of lateral skin grafts secondary to frostbite history that her helps carry her around as she has very difficult time walking ED EXAM, GENERAL - Physical Exam Exam: See Below Free Text/Narrative:: Anesthetic pale woman who is a slightly enlarged abdomen with a very shrill tight slightly high-pitched course voice who has difficult time producing words because vocal cords are been strained by the vomiting/and/or stressed by the vomiting Exam Limited By: No Limitations General Appearance: Alert, Moderate Distress Eye Exam: Bilateral Eye: Normal Inspection Ear Exam: Bilateral Ear: Auricle Normal, Canal Normal, TM normal Nose: Normal Inspection, Normal Mucosa Throat/Mouth: Normal Teeth, Normal Gums, Other (Very dry Tongue and oral mucosa) Head: Atraumatic, Normocephalic Neck: Normal Inspection, Supple, Other (Mild tracheal tug no tracheal deviation) Respiratory/Chest: Rales, Other (Rales bilateral posterior lungs congested cough no intercostal retraction or tachypnea) Cardiovascular: Regular Rate, Rhythm, No Edema, Tachycardia Peripheral Pulses: 1+: Radial (L) (Weak radial and femoral pulses), Radial (R), Femoral (L), Femoral (R) GI/Abdominal: Soft, Non-Tender, No Organomegaly, No Distention, No Mass (Female) Exam: Deferred Rectal (Female) Exam: Deferred Back Exam: Normal Inspection Extremities: Non-Tender, Normal Capillary Refill, Other (Stork legs with loss of muscle mass) Neurological: Alert, Oriented, CN II-XII Intact, Normal Cognition, Abnormal Gait , Other (Absent reflexes or sensory deficit but she has a motor deficit because shows decreased strength symmetrically) Skin Exam: Warm, Dry, Intact Lymphatic: No Adenopathy Course - Vital Signs Last Recorded V/S: Last Vital Signs Temp 37.3 C 12/13/17 07:39 Pulse 112 H 12/13/17 09:23 Resp 20 12/13/17 07:39 BP 116/68 12/13/17 09:23 Pulse Ox 94 L 12/13/17 07:39 - Orders/Labs/Meds Orders: Medication Orders Levalbuterol HCl (Xopenex) 1.25 mg NEB Q4H PRN PRN Reason: Wheezing Last Admin: 12/11/17 15:10 Dose: 1.25 mg Admin: 12/11/17 07:40 Dose: 1.25 mg Lidocaine (Lidoderm 5%) 700 mg TOP DAILY [facility] Last Admin: 12/13/17 09:25 Dose: 700 mg Admin: 12/12/17 10:15 Dose: 700 mg Lorazepam (Ativan) 0.5 mg IVPUSH Q6H PRN PRN Reason: Anxiety Last Admin: 12/13/17 04:26 Dose: 0.5 mg Admin: 12/11/17 14:14 Dose: 0.5 mg Admin: 12/11/17 08:03 Dose: 0.5 mg Magnesium Oxide (Magnesium Oxide) 400 mg PO BID [facility] Last Admin: 12/13/17 09:45 Dose: Not Given Admin: 12/12/17 21:36 Dose: Not Given Admin: 12/12/17 10:00 Dose: Not Given Metoprolol Tartrate (Lopressor) 12.5 mg PO Q12H [facility] Last Admin: 12/13/17 09:23 Dose: 12.5 mg Admin: 12/12/17 21:33 Dose: 12.5 mg Admin: 12/12/17 10:00 Dose: Not Given Miscellaneous Information (Remove Patch) 1 ea TRDERM BEDTIME [facility] Last Admin: 12/12/17 21:31 Dose: 1 ea Admin: 12/11/17 17:30 Dose: 1 ea Multivitamins/Minerals/Vitamin C (Tab-A-Shelby) 1 tab PO DAILY [facility] Last Admin: 12/13/17 09:45 Dose: Not Given Admin: 12/12/17 10:46 Dose: Not Given Potassium Chloride (Klor-Con) 40 meq PO QID [facility] Last Admin: 12/13/17 09:45 Dose: Not Given Admin: 12/12/17 21:36 Dose: Not Given Admin: 12/12/17 17:59 Dose: Not Given Admin: 12/12/17 13:45 Dose: Not Given Admin: 12/12/17 10:00 Dose: Not Given Potassium Phos/Sodium Phos (Phos-Nak Powder) 1 each PO QID [facility] Last Admin: 12/13/17 09:24 Dose: 1 packet Promethazine HCl (Phenergan) 25 mg PO Q6H PRN PRN Reason: nausea, able to take PO Sodium Chloride (Saline Flush) 10 ml FLUSH ASDIRECTED PRN PRN Reason: IV Use Last Admin: 12/13/17 07:38 Dose: 10 ml Admin: 12/11/17 18:49 Dose: 10 ml Admin: 12/11/17 14:15 Dose: 10 ml Admin: 12/11/17 08:03 Dose: 10 ml Sucralfate (Carafate) 1 gm PO QIDACANDBED [facility] Last Admin: 12/13/17 07:38 Dose: Not Given Admin: 12/12/17 21:36 Dose: Not Given Admin: 12/12/17 18:20 Dose: 1 gm Admin: 12/12/17 11:24 Dose: Not Given Admin: 12/12/17 08:35 Dose: Admin: 12/11/17 21:28 Dose: Admin: 12/11/17 18:01 Dose: Admin: 12/11/17 11:11 Dose: Admin: 12/11/17 08:57 Dose: Thiamine HCl (Vitamin B-1) 100 mg PO DAILY [facility] Last Admin: 12/13/17 09:45 Dose: Not Given Admin: 12/12/17 10:00 Dose: Not Given Meds: Medications Generic Name Dose Route Start Last Admin Trade Name Freq PRN Reason Stop Dose Admin Levalbuterol HCl 1.25 mg 12/11/17 07:43 12/11/17 15:10 Xopenex NEB 1.25 mg Q4H PRN Administration Wheezing Lidocaine 700 mg 12/12/17 09:00 12/13/17 09:25 Lidoderm 5% TOP 700 mg DAILY ERICH Administration Lorazepam 0.5 mg 12/11/17 07:46 12/13/17 04:26 Ativan IVPUSH 0.5 mg Q6H PRN Administration Anxiety Magnesium Oxide 400 mg 12/12/17 09:00 12/13/17 09:45 Magnesium Oxide PO Not Given BID ERICH Metoprolol Tartrate 12.5 mg 12/12/17 08:45 12/13/17 09:23 Lopressor PO 12.5 mg Q12H ERICH Administration Miscellaneous Information 1 ea 12/11/17 17:00 12/12/17 21:31 Remove Patch TRDERM 1 ea BEDTIME ERICH Administration Multivitamins/Minerals/Vitamin C 1 tab 12/12/17 09:00 12/13/17 09:45 Tab-A-Shelby PO Not Given DAILY [facility] Potassium Chloride 40 meq 12/12/17 09:00 12/13/17 09:45 Klor-Con PO Not Given QID [facility] Potassium Phos/Sodium Phos 1 each 12/13/17 09:00 12/13/17 09:24 Phos-Nak Powder PO 1 packet QID ERICH Administration Promethazine HCl 25 mg 12/11/17 03:34 Phenergan PO Q6H PRN nausea, able to take PO Sodium Chloride 10 ml 12/11/17 08:03 12/13/17 07:38 Saline Flush FLUSH 10 ml ASDIRECTED PRN Administration IV Use Sucralfate 1 gm 12/11/17 07:30 12/13/17 07:38 Carafate PO Not Given QIDACANDBED [facility] Thiamine HCl 100 mg 12/12/17 09:00 12/13/17 09:45 Vitamin B-1 PO Not Given DAILY ERICH Discontinued Medications Generic Name Dose Route Start Last Admin Trade Name Freq PRN Reason Stop Dose Admin Atorvastatin Calcium 20 mg 12/11/17 21:00 Lipitor PO BEDTIME ERICH Bisacodyl 5 mg 12/11/17 03:00 Dulcolax PO DAILY PRN Constipation Budesonide 0.5 mg 12/11/17 08:15 12/11/17 09:19 Pulmicort NEB 12/11/17 08:16 0.5 mg ONETIME ONE Administration Famotidine 20 mg 12/11/17 09:00 12/11/17 08:58 Pepcid PO Not Given BID ERICH Folic Acid 1 mg 12/11/17 09:00 12/11/17 08:57 Folic Acid PO Not Given DAILY [facility] Hydroxyzine HCl 25 mg 12/11/17 08:09 Atarax PO TID PRN ANXIETY Sodium Chloride 1,000 mls @ 999 mls/hr 12/11/17 00:41 12/11/17 01:15 Normal Saline IV 12/11/17 01:41 999 mls/hr .BOLUS ONE Administration Multivitamins/Minerals 10 ml/ 1,013 mls @ 999 mls/hr 12/11/17 01:30 Thiamine HCl 200 mg/ Chromium/ IV Copper/Manganese/Seleni/Zn 1 ASDIRECTED ERICH ml/ Dextrose/Lactated Ringer's Multivitamins/Minerals 10 ml/ 1,012 mls @ 998.137 mls/hr 12/11/17 02:38 12/11 03:16 Thiamine HCl 200 mg/ Dextrose/ IV 998.137 mls/hr Lactated Ringer's ASDIRECTED ERICH Administration Multivitamins/Minerals 10 ml/ 1,017.2 mls @ 500 mls/hr 12/11/17 02:40 08:11 Thiamine HCl 100 mg/ Folic IV 12/11/17 04:42 Not Given Acid 1 mg/ Magnesium Sulfate 3 NOW STA gm/ Sodium Chloride Dextrose/Lactated Ringer's 1,000 mls @ 150 mls/hr 12/11/17 03:15 12/11/17 04: 00 Dextrose 5%-Lactated Ringers IV 150 mls/hr ASDIRECTED ERICH Administration Potassium Chloride 20 meq/ 100 mls @ 50 mls/hr 12/11/17 09:00 12/13/17 03:04 Premix IV 50 mls/hr Q6H ERICH Administration Sodium Chloride 1,000 mls @ 999 mls/hr 12/11/17 08:15 12/11/17 08:10 Normal Saline IV 999 mls/hr ASDIRECTED ERICH Administration Magnesium Sulfate 4 gm/ Premix 50 mls @ 150 mls/hr 12/11/17 09:00 12/11/17 09 :06 IV 12/11/17 09:19 150 mls/hr ONETIME ONE Administration Sodium Chloride 1,000 mls @ 200 mls/hr 12/11/17 10:00 12/12/17 04:53 Normal Saline IV 200 mls/hr ASDIRECTED ERICH Administration Potassium Chloride/Sodium Chloride 1,000 mls @ 100 mls/hr 12/12/17 08:45 08/25 06:25 Normal Saline With 20 Meq Kcl IV 100 mls/hr Q10H ERICH Administration Ketorolac Tromethamine 30 mg 12/11/17 10:41 12/12/17 19:35 Toradol IVPUSH 12/16/17 10:41 30 mg Q6H PRN Administration Pain Lidocaine 700 mg 12/11/17 03:00 12/12/17 11:32 Lidoderm 5% TOP Not Given Q24H ERICH Lidocaine 700 mg 12/12/17 08:00 Lidoderm 5% TOP Q24H ERICH Magnesium Oxide 400 mg 12/11/17 09:00 12/11/17 08:58 Magnesium Oxide PO Not Given DAILY [facility] Metoprolol Tartrate Confirm 12/11/17 06:00 12/11/17 06:10 Lopressor Administered 12/11/17 06:01 Not Given Dose 5 mg .ROUTE .STK-MED ONE Metoprolol Tartrate 25 mg 12/11/17 05:30 12/11/17 08:13 Lopressor PO Not Given Q12H [facility] Metoprolol Tartrate 5 mg 12/11/17 05:30 12/11/17 06:10 Lopressor IVPUSH 12/11/17 05:31 5 mg ONETIME ONE Administration Nitroglycerin Confirm 12/11/17 06:02 12/11/17 08:25 Nitro-Bid 2% Administered 12/11/17 06:03 Not Given Dose 1 gm .ROUTE .STK-MED ONE Nitroglycerin 0.4 mg 12/11/17 03:34 Nitrostat SL ASDIRECTED PRN Anxiety Nitroglycerin 1 gm 12/11/17 05:30 12/11/17 08:14 Nitro-Bid 2% TOP 12/11/17 05:31 1 gm ONETIME ONE Administration Ondansetron HCl 4 mg 12/11/17 03:00 Zofran Odt PO Q6H PRN nausea, able to take PO Potassium Chloride 20 meq 12/11/17 09:00 12/11/17 21:29 Klor-Con M20 PO Not Given BID [facility] Potassium Phos/Sodium Phos 1 each 12/11/17 09:00 12/12/17 21:36 Phos-Nak Powder PO Not Given BID [facility] Departure - Departure Time of Disposition: 01:20 Disposition: Admitted As Inpatient 67 Condition: Good Clinical Impression: Dehydration, Alcoholism, Mobility impaired, Bilateral foot-drop, Alcoholism syndrome Malnutrition Qualifiers: Malnutrition type: unspecified type Qualified Code(s): E46 - Unspecified protein-calorie malnutrition Cholelithiasis Qualifiers: Cholelithiasis location: gallbladder Cholecystitis presence: with cholecystitis Cholecystitis acuity: chronic Biliary obstruction: without biliary obstruction Qualified Code(s): K80.10 - Calculus of gallbladder with chronic cholecystitis without obstruction Depression Qualifiers: Depression Type: other depression Qualified Code(s): F32.89 - Other specified depressive episodes - Discharge Information *PRESCRIPTION DRUG MONITORING PROGRAM REVIEWED*: Not Applicable *COPY OF PRESCRIPTION DRUG MONITORING REPORT IN PATIENT [id number]: Not Applicable
[2017-12-11] MEDS ORDERED: MVI, Adult with Vitamin K 10 ML, Thiamine 200 MG, Chromium/Copper/Mang/Selen/Zn 1 ML in... IV SCH ×4 (01:30)
[2017-12-11] MEDS ORDERED: MVI, Adult with Vitamin K 10 ML, Thiamine 200 MG in Dextrose 5%-Lactated Ringers 1,000 ML IV SCH ×3 (02:38)
[2017-12-11] MEDS ORDERED: MVI, Adult with Vitamin K 10 ML, Thiamine 100 MG, Folic Acid 1 MG, Magnesium Sulfate 3 ... IV STA ×5 (02:40)
[2017-12-11] MEDS ORDERED: Enoxaparin 30 MG/0.3 ML Syringe SUBCUT SCH (03:00)
[2017-12-11] MEDS ORDERED: Bisacodyl 5 MG Tab PO PRN (03:00)
[2017-12-11] MEDS ORDERED: Ondansetron 4 MG Tab.DIS PO PRN (03:00)
[2017-12-11] MEDS ORDERED: Dextrose 5%-Lactated Ringers 1,000 ML IV SCH (03:15)
[2017-12-11] MEDS ORDERED: Promethazine 25 MG Tab PO PRN (03:34)
[2017-12-11] MEDS ORDERED: Nitroglycerin 0.4 MG Tab.SL SL PRN (03:34)
[2017-12-11] MEDS ORDERED: Metoprolol Tartrate 5 MG/5 ML SDV IVPUSH ONE (05:30)
[2017-12-11] MEDS ORDERED: Metoprolol Tartrate 25 MG Tab PO SCH (05:30)
[2017-12-11] MEDS ORDERED: Nitroglycerin 2% Oint 1 GM UD Packet TOP ONE (05:30)
[2017-12-11] MEDS ORDERED: Metoprolol Tartrate 5 MG/5 ML SDV ONE (06:00)
[2017-12-11] MEDS ORDERED: Nitroglycerin 2% Oint 1 GM UD Packet ONE (06:02)
[2017-12-11] MEDS: Levalbuterol HCl 1.25 MG/3 ML Neb NEB PRN ×2 (07:40→15:10)
[2017-12-11] MEDS: Lidocaine 5% 700 MG Patch TOP SCH (07:52)
[2017-12-11] MEDS: Sodium Chloride 0.9% 10 ML Syringe FLUSH PRN ×3 (08:03→18:49)
[2017-12-11] MEDS: LORazepam 2 MG/ML SDV IVPUSH PRN ×2 (08:03→14:14)
[2017-12-11] MEDS ORDERED: hydrOXYzine HCl 25 MG Tab PO PRN (08:09)
[2017-12-11] MEDS ORDERED: Sodium Chloride 0.9% 1,000 ML IV SCH (08:15)
[2017-12-11] MEDS ORDERED: Budesonide 0.5 MG/2 ML Neb Susp NEB ONE (08:15)
[2017-12-11] MEDS ORDERED: Magnesium Sulfate/Water 4 GM in Premix Bag 1 BAG IV ONE ×2 (08:17→09:00)
[2017-12-11] MEDS: Potassium Chloride 20 MEQ Tab.ER PO SCH ×2 (08:57→21:29)
[2017-12-11] MEDS: Sucralfate 1 GM Tab PO SCH ×4 (08:57→21:28)
[2017-12-11] MEDS: Potassium Phosphate,Mb-Db/Sodium Phosphate,Mb-Db Packet PO SCH ×2 (08:58→21:29)
[2017-12-11] MEDS ORDERED: Folic Acid 1 MG Tab PO SCH (09:00)
[2017-12-11] MEDS ORDERED: Famotidine 20 MG Tab PO SCH (09:00)
[2017-12-11] MEDS ORDERED: Magnesium Oxide 400 MG Tab PO SCH (09:00)
[2017-12-11] MEDS: Potassium Chloride 20 MEQ in Premix Bag 1 BAG IV SCH ×3 (09:36→21:39)
[2017-12-11] MEDS ORDERED: Iopamidol 755 Mg/ML 75 ML Bottle IV ONE (10:13)
[2017-12-11] MEDS: Ketorolac 30 MG/ML SDV IVPUSH PRN ×2 (10:50→18:47)
[2017-12-11] MEDS: Sodium Chloride 0.9% 1,000 ML IV SCH ×2 (18:45→23:48)
--- NOTE | 2017-12-11 19:35 | PCM.HP ---
H&P History of Present Illness - General Date of Service: 12/11/17 Admit Problem/Dx: Admission Diagnosis/Problem Admission Diagnosis/Problem Dehydration Source of Information: Old Records, Provider History Limitations: Reports: Uncooperative - History of Present Illness Initial Comments - Free Text/Narative: Malu Rivera is a chronic alcohol woman who has documented malnutrition, pancreatitis,inability to walk secondary to frostbite or legs myalgia of her legs chronic low back pain, non-STEMI, coronary disease, chronic alcoholism, prolonged QT interval, anemia, frostbite to hands and feet, bilateral foot drop , previous surgery: appendectomy cataract goel bite grafts to hand and feet. Presented last night because she has not been able to eat or drink fluids, and has been vomiting every time she just attempts to eat or drink fluids for 3 days. She speaks with a very shrill hoarse voice from vomiting. "Every time I try to eat food or drink liquids I vomit." He had a very serious problem and alcoholism for many years,but last drink was about 3-4 days ago. She has a h/o multiple admissions,last admission at [place] was in February,for NSTEMI, thought to be due to demand ischemia. Upon admission when I came to see her she was having difficulty breathing and audible stridor. She was on hypoxia needing oxygen up to 10 L to keep oxygen above 92%. Lower Back Pain Score (Numeric/FACES): 4 - Related Data Allergies/Adverse Reactions: Allergies Allergy/AdvReac Type Severity Reaction Status Date / Time ondansetron AdvReac Severe Arrhythmias Verified 09/13/17 10:12 [From Zofran (as hydrochloride)] Home Medications: Home Meds Sucralfate [Carafate] 1 gm PO QIDACANDBED 10/25/16 [History] Folic Acid 1 mg PO DAILY 04/24/17 [History] Nitroglycerin [Nitrostat] 0.4 mg SL ASDIRECTED PRN 04/24/17 [History] atorvaSTATin [Lipitor] 20 mg PO BEDTIME 04/24/17 [History] hydrOXYzine pamoate [Hydroxyzine Pamoate] 25 mg PO TID PRN 04/24/17 [History] Promethazine [Phenergan] 25 mg PO Q6H PRN #20 tablet 04/25/17 [Rx] Magnesium Oxide 400 mg PO DAILY #90 tablet 05/26/17 [Rx] Metoprolol Tartrate [Lopressor] 12.5 mg PO Q12H tablet 05/26/17 [Rx] Multivitamins [Tab-A-Shelby] 1 tab PO DAILY tablet 05/26/17 [Rx] NaPh,Mb-Db/K Ph,MB-DB [Phos-NaK Powder] 1 each PO BID #60 packet 05/26/17 [Rx] Pantoprazole [ProTONIX] 40 mg PO DAILY@0600 tab.cr 05/26/17 [Rx] Potassium Chloride [Klor-Con M20] 20 meq PO BID #60 tab.er 05/26/17 [Rx] Thiamine [Vitamin B-1] 100 mg PO DAILY #30 tablet 05/26/17 [Rx] Famotidine [Pepcid] 20 mg PO BID #20 tab 09/13/17 [Rx] Lidocaine 5% [Lidoderm 5%] 1 patch TOP DAILY #7 patch 12/11/17 [Rx] Ondansetron [Zofran ODT] 4 mg PO Q6H PRN #8 tab.dis 12/11/17 [Rx] Past Medical History HEENT History: Reports: Cataract, Impaired Vision Cardiovascular History: Reports: Angina, IA, Other (See Below) Other Cardiovascular History: Pt reports palpitations Respiratory History: Reports: SOB Gastrointestinal History: Reports: Cholelithiasis, Cirrhosis, Gastritis, GERD Genitourinary History: Reports: UTI, 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 Has bilat foot drop. - Infectious Disease History Infectious Disease History: Reports: Chicken Pox Other Infectious Disease History: Unknown. - Past Surgical History HEENT Surgical History: Reports: Cataract Surgery, Tonsillectomy GI Surgical History: Reports: Appendectomy Female Surgical History: Reports: Other (See Below) Other Female Surgeries/Procedures: ? d and Dermatological Surgical History: Reports: Skin Graft Social & Family History - Family History Family Medical History: Unobtainable - Tobacco Use Smoking Status *Q: Never Smoker Second Hand Smoke Exposure: Yes - Caffeine Use Caffeine Use: Reports: None Other Caffeine Use: Unknown. Patient poor historian at this time. Caffeine Use Comment: Does not use caffeine regularly - Alcohol Use Days Per Week of Alcohol Use: 7 Number of Drinks Per Day: 3 Total Drinks Per Week: 21 Date of Last Drink: 12/08/17 - Recreational Drug Use Recreational Drug Use: No H&P Review of Systems - Review of Systems: Review Of Systems: ROS reveals no pertinent complaints other than HPI. Exam - Exam Exam: Not Obtained - Vital Signs Vital Signs: Last Vital Signs Temp 99.5 F 12/11/17 12:45 Pulse 144 H 12/11/17 15:10 Resp 21 H 12/11/17 14:00 BP 82/55 L 12/11/17 14:15 Pulse Ox 95 12/11/17 15:11 Weight: 54.386 kg - Exam Quality Assessment: Supplemental Oxygen General: Alert. No: Cooperative HEENT: PERRLA Lungs: Rhonchi, Stridor Cardiovascular: Regular Rate (Female) Exam: Deferred Rectal (Female) Exam: Deferred Back Exam: Vertebral Tenderness Neurological: Cranial Nerves Intact Neuro Extensive - Mental Status: Oriented x3 Neuro Extensive - Motor, Sensory, Reflexes: CN II-XII Intact Psychiatric: Alert - Patient Data Lab Results Last 24 hrs: Laboratory Results - last 24 hr 12/11/17 12/11/17 12/11/17 Range/Units 07:30 07:30 07:30 WBC 6.3 (4.5-12.0) X10-3/uL RBC 4.18 (3.23-5.20) x10(6)uL Hgb 14.7 (11.5-15.5) g/dL Hct 43.3 (30.0-51.3) % MCV 103.5 H (80-96) fL MCH 35.1 H (27.7-33.6) pg MCHC 33.9 (32.2-35.4) g/dL RDW 12.6 (11.5-15.5) % Plt Count 157 (125-369) X10(3)uL MPV 8.7 (7.4-10.4) fL Add Manual Diff Yes Neutrophils % (Manual) 83 H (46-82) % Band Neutrophils % 3 (0-6) % Lymphocytes % (Manual) 9 L (13-37) % Monocytes % (Manual) 5 (4-12) % Macrocytosis Few D-Dimer, Quantitative 2.13 H (0.0-0.59) mg/LFEU Sodium (135-145) mmol/L Potassium (3.5-5.3) mmol/L Chloride (100-110) mmol/L Carbon Dioxide (21-32) mmol/L BUN (7-18) mg/dL Creatinine (0.55-1.02) mg/dL Est Cr Clr Drug Dosing mL/min Estimated GFR (MDRD) (>60) BUN/Creatinine Ratio (9-20) Glucose (80-116) mg/dL Hemoglobin A1c (4.5-6.2) % Lactic Acid (0.4-2.2) mmol/L Calcium (8.6-10.2) mg/dL Phosphorus (2.6-4.6) mg/dL Magnesium (1.8-2.5) mg/dL Total Bilirubin (0.1-1.3) mg/dL AST (5-25) IU/L ALT (12-36) U/L Alkaline Phosphatase (56-112) IU/L Creatine Kinase (60-160) IU/L Troponin I 0.995 H* (<0.017-0.056) ng/mL NT-Pro-B Natriuret Pep 8690 H* (<=125) pg/mL Total Protein (6.0-8.0) g/dL Albumin (3.5-5.2) g/dL Globulin g/dL Albumin/Globulin Ratio Amylase (25-115) U/L Ethyl Alcohol (<0.03) % 12/11/17 12/11/17 12/11/17 Range/Units 07:30 07:30 07:30 WBC (4.5-12.0) X10-3/uL RBC (3.23-5.20) x10(6)uL Hgb (11.5-15.5) g/dL Hct (30.0-51.3) % MCV (80-96) fL MCH (27.7-33.6) pg MCHC (32.2-35.4) g/dL RDW (11.5-15.5) % Plt Count (125-369) X10(3)uL MPV (7.4-10.4) fL Add Manual Diff Neutrophils % (Manual) (46-82) % Band Neutrophils % (0-6) % Lymphocytes % (Manual) (13-37) % Monocytes % (Manual) (4-12) % Macrocytosis D-Dimer, Quantitative (0.0-0.59) mg/LFEU Sodium 139 (135-145) mmol/L Potassium 2.9 L (3.5-5.3) mmol/L Chloride 94 L D (100-110) mmol/L Carbon Dioxide 13 L (21-32) mmol/L BUN 11 D (7-18) mg/dL Creatinine 1.4 H (0.55-1.02) mg/dL Est Cr Clr Drug Dosing 40.82 mL/min Estimated GFR (MDRD) 40 L (>60) BUN/Creatinine Ratio 7.9 L (9-20) Glucose 423 H* D (80-116) mg/dL Hemoglobin A1c (4.5-6.2) % Lactic Acid (0.4-2.2) mmol/L Calcium 7.9 L D (8.6-10.2) mg/dL Phosphorus (2.6-4.6) mg/dL Magnesium (1.8-2.5) mg/dL Total Bilirubin 1.2 (0.1-1.3) mg/dL AST 180 H* D (5-25) IU/L ALT 114 H (12-36) U/L Alkaline Phosphatase 180 H (56-112) IU/L Creatine Kinase (60-160) IU/L Troponin I (<0.017-0.056) ng/mL NT-Pro-B Natriuret Pep (<=125) pg/mL Total Protein 7.6 (6.0-8.0) g/dL Albumin 3.5 (3.5-5.2) g/dL Globulin 4.1 g/dL Albumin/Globulin Ratio 0.9 Amylase 474 H* (25-115) U/L Ethyl Alcohol < 0.03 (<0.03) % 12/11/17 12/11/1712/11/18 Range/Units 07:30 07:30 07:30 WBC (4.5-12.0) X10-3/uL RBC (3.23-5.20) x10(6)uL Hgb (11.5-15.5) g/dL Hct (30.0-51.3) % MCV (80-96) fL MCH (27.7-33.6) pg MCHC (32.2-35.4) g/dL RDW (11.5-15.5) % Plt Count (125-369) X10(3)uL MPV (7.4-10.4) fL Add Manual Diff Neutrophils % (Manual) (46-82) % Band Neutrophils % (0-6) % Lymphocytes % (Manual) (13-37) % Monocytes % (Manual) (4-12) % Macrocytosis D-Dimer, Quantitative (0.0-0.59) mg/LFEU Sodium (135-145) mmol/L Potassium (3.5-5.3) mmol/L Chloride (100-110) mmol/L Carbon Dioxide (21-32) mmol/L BUN (7-18) mg/dL Creatinine (0.55-1.02) mg/dL Est Cr Clr Drug Dosing mL/min Estimated GFR (MDRD) (>60) BUN/Creatinine Ratio (9-20) Glucose (80-116) mg/dL Hemoglobin A1c 4.8 (4.5-6.2) % Lactic Acid 4.7 H (0.4-2.2) mmol/L Calcium (8.6-10.2) mg/dL Phosphorus 2.3 L (2.6-4.6) mg/dL Magnesium 1.2 L* (1.8-2.5) mg/dL Total Bilirubin (0.1-1.3) mg/dL AST (5-25) IU/L ALT (12-36) U/L Alkaline Phosphatase (56-112) IU/L Creatine Kinase 154 (60-160) IU/L Troponin I (<0.017-0.056) ng/mL NT-Pro-B Natriuret Pep (<=125) pg/mL Total Protein (6.0-8.0) g/dL Albumin (3.5-5.2) g/dL Globulin g/dL Albumin/Globulin Ratio Amylase (25-115) U/L Ethyl Alcohol (<0.03) % Result Diagrams: 12/11/17 07:30 12/11/17 07:30 Miguel Results Last 24 hrs: Microbiology 12/11/17 03:00 Gastric Occult Blood - Final Gastric Aspirate EKG INTERPRETATION EKG Date: 12/11/17 Rhythm: NSR - Problem List (1) Respiratory distress SNOMED Code(s): 781048867 ICD Code: R06.03 - ACUTE RESPIRATORY DISTRESS Status: Acute Current Visit : Yes (2) Alcoholism SNOMED Code(s): 1585478 ICD Code: F10.20 - ALCOHOL DEPENDENCE, UNCOMPLICATED Status: Acute Current Visit: Yes (3) Dehydration SNOMED Code(s): 20818644 ICD Code: E86.0 - DEHYDRATION Status: Acute Priority: High Current Visit: Yes (4) Depression SNOMED Code(s): 17263877 ICD Code: F32.9 - MAJOR DEPRESSIVE DISORDER, SINGLE EPISODE, UNSPECIFIED Status: Acute Current Visit: Yes Qualifiers: Depression Type: other depression Qualified Code(s): F32.89 - Other specified depressive episodes (5) Malnutrition SNOMED Code(s): 64583873 ICD Code: E46 - UNSPECIFIED PROTEIN-CALORIE MALNUTRITION Status: Acute Current Visit: Yes Qualifiers: Malnutrition type: unspecified type Qualified Code(s): E46 - Unspecified protein-calorie malnutrition (6) Mobility impaired SNOMED Code(s): 61768737 ICD Code: Z74.09 - OTHER REDUCED MOBILITY Status: Chronic Current Visit: Yes (7) Debility SNOMED Code(s): 93096995 ICD Code: R53.81 - OTHER MALAISE Status: Acute Current Visit: No (8) Hypokalemia SNOMED Code(s): 43317099 ICD Code: E87.6 - HYPOKALEMIA Status: Acute Current Visit: No (9) Hypomagnesemia SNOMED Code(s): 481974360 ICD Code: E83.42 - HYPOMAGNESEMIA Status: Acute Current Visit: No (10) Sinus tachycardia SNOMED Code(s): 75805093 ICD Code: R00.0 - TACHYCARDIA, UNSPECIFIED Status: Acute Current Visit: No (11) NSTEMI (non-ST elevated myocardial infarction) SNOMED Code(s): 257200586 ICD Code: I21.4 - NON-ST ELEVATION (NSTEMI) MYOCARDIAL INFARCTION Status: Acute Current Visit: Yes (12) Hyperglycemia SNOMED Code(s): 35289405 ICD Code: R73.9 - HYPERGLYCEMIA, UNSPECIFIED Status: Acute Current Visit : Yes (13) Hypotension SNOMED Code(s): 76400890 ICD Code: I95.9 - HYPOTENSION, UNSPECIFIED Status: Acute Current Visit: Yes Qualifiers: Hypotension type: unspecified hypotension type Qualified Code(s): I95.9 - Hypotension, unspecified Problem List Initiated/Reviewed/Updated: Yes Orders Last 24hrs: Active Orders 24 hr Category Date Time Status Patient Status [ADT] Routine ADT 12/11/17 09:51 Active Height and Weight [RC] 06 Care 12/11/17 03:00 Active Oxygen Therapy [RC] PRN Care 12/11/17 03:00 Active Pulse Oximetry [RC] PRN Care 12/11/17 03:02 Active RT Aerosol Therapy [RC] ASDIRECTED Care 12/11/17 08:15 Active Vital Signs [RC] Q4H Care 12/11/17 03:00 Active NPO [Nothing Per Oral Diet] [DIET] Diet 12/11/17 Breakfast Active Chest 1V Frontal [CR] Stat Exams 12/10/17 22:59 Taken Ketorolac [Toradol] Med 12/11/17 10:41 Active 30 mg IVPUSH Q6H PRN LORazepam [Ativan] Med 12/11/17 07:46 Active 0.5 mg IVPUSH Q6H PRN Levalbuterol HCl [Xopenex] Med 12/11/17 07:43 Active 1.25 mg NEB Q4H PRN Lidocaine 5% [Lidoderm 5%] Med 12/11/17 03:00 Active 700 mg TOP Q24H Magnesium Oxide Med 12/11/17 09:00 Active 400 mg PO DAILY Multivitamins [Tab-A-Shelby] Med 12/12/17 09:00 Active 1 tab PO DAILY NaPh,Mb-Db/K Ph,MB-DB [Phos-NaK Powder] Med 12/11/17 09:00 Active 1 each PO BID Potassium Chloride [KCL 20 MEQ in Water 100 ML] 20 meq Med 12/11/17 09:00 Active Premix Bag 1 bag IV Q6H Potassium Chloride [Klor-Con M20] Med 12/11/17 09:00 Active 20 meq PO BID Promethazine [Phenergan] Med 12/11/17 03:34 Active 25 mg PO Q6H PRN Remove Patch Med 12/11/17 17:00 Active 1 ea TRDERM BEDTIME Sodium Chloride 0.9% [Normal Saline] 1,000 ml Med 12/11/17 08:15 Active IV ASDIRECTED Sodium Chloride 0.9% [Normal Saline] 1,000 ml Med 12/11/17 10:00 Active IV ASDIRECTED Sodium Chloride 0.9% [Saline Flush] Med 12/11/17 08:03 Active 10 ml FLUSH ASDIRECTED PRN Sucralfate [Carafate] Med 12/11/17 07:30 Active 1 gm PO QIDACANDBED Thiamine [Vitamin B-1] Med 12/12/17 09:00 Active 100 mg PO DAILY Convert IV to Saline Lock [OM.PC] Routine Oth 12/11/17 07:38 Ordered Resuscitation Status Routine Resus Stat 12/11/17 03:00 Ordered EKG 12 Lead [EK] Routine Ther 12/11/17 00:25 Ordered Medication Orders Potassium Chloride 20 meq/ (Premix) 100 mls @ 50 mls/hr IV Q6H [facility] Last Admin: 12/11/17 14:50 Dose: 50 mls/hr Infusion: 12/11/17 11:36 Dose: 50 mls/hr Admin: 12/11/17 09:36 Dose: 50 mls/hr Sodium Chloride (Normal Saline) 1,000 mls @ 999 mls/hr IV ASDIRECTED [facility] Last Admin: 12/11/17 08:10 Dose: 999 mls/hr Sodium Chloride (Normal Saline) 1,000 mls @ 200 mls/hr IV ASDIRECTED [facility] Last Admin: 12/11/17 18:45 Dose: 200 mls/hr Ketorolac Tromethamine (Toradol) 30 mg IVPUSH Q6H PRN PRN Reason: Pain Stop: 12/16/17 10:41 Last Admin: 12/11/17 18:47 Dose: 30 mg Admin: 12/11/17 10:50 Dose: 30 mg Levalbuterol HCl (Xopenex) 1.25 mg NEB Q4H PRN PRN Reason: Wheezing Last Admin: 12/11/17 15:10 Dose: 1.25 mg Admin: 12/11/17 07:40 Dose: 1.25 mg Lidocaine (Lidoderm 5%) 700 mg TOP Q24H [facility] Last Admin: 12/11/17 07:52 Dose: 700 mg Lorazepam (Ativan) 0.5 mg IVPUSH Q6H PRN PRN Reason: Anxiety Last Admin: 12/11/17 14:14 Dose: 0.5 mg Admin: 12/11/17 08:03 Dose: 0.5 mg Magnesium Oxide (Magnesium Oxide) 400 mg PO DAILY [facility] Last Admin: 12/11/17 08:58 Dose: Miscellaneous Information (Remove Patch) 1 ea TRDERM BEDTIME [facility] Last Admin: 12/11/17 17:30 Dose: 1 ea Multivitamins/Minerals/Vitamin C (Tab-A-Shelby) 1 tab PO DAILY [facility] Potassium Chloride (Klor-Con M20) 20 meq PO BID [facility] Last Admin: 12/11/17 08:57 Dose: Potassium Phos/Sodium Phos (Phos-Nak Powder) 1 each PO BID [facility] Last Admin: 12/11/17 08:58 Dose: Promethazine HCl (Phenergan) 25 mg PO Q6H PRN PRN Reason: nausea, able to take PO Sodium Chloride (Saline Flush) 10 ml FLUSH ASDIRECTED PRN PRN Reason: IV Use Last Admin: 12/11/17 18:49 Dose: 10 ml Admin: 12/11/17 14:15 Dose: 10 ml Admin: 12/11/17 08:03 Dose: 10 ml Sucralfate (Carafate) 1 gm PO QIDACANDBED [facility] Last Admin: 12/11/17 18:01 Dose: Admin: 12/11/17 11:11 Dose: Admin: 12/11/17 08:57 Dose: Thiamine HCl (Vitamin B-1) 100 mg PO DAILY [facility] Assessment/Plan Comment:: I personally reviewed x-ray and did not show any infiltrates. The source of this respiratory stress is unclear, but possibly anxiety related. She has hypotension due to dehydration and hypovolemia, and 2 L of normal saline crystalloid was given as a bolus. I elected to use Xopenex as needed to help the wheezing. I ordered a CT of the chest and abdomen pelvis but the patient declined. For now we'll continue with supportive therapy using lorazepam when necessary if the blood pressure allows. Her back pain is chronic and topradol should be sufficient.If she agrees,PT/OT as well.. Also,I am not sure why she has high sugars and A1c be done in the morning.Repeat all labs in AM,including trop,mag,ammonia,and potassium.
[2017-12-11] MEDS ORDERED: atorvaSTATin 20 MG Tab PO SCH (21:00)
[2017-12-12] MEDS: Potassium Chloride 20 MEQ in Premix Bag 1 BAG IV SCH ×4 (03:23→21:28)
[2017-12-12] MEDS: Sodium Chloride 0.9% 1,000 ML IV SCH (04:53)
[2017-12-12] MEDS ORDERED: Lidocaine 5% 700 MG Patch TOP SCH (08:00)
[2017-12-12] MEDS: Sucralfate 1 GM Tab PO SCH ×4 (08:35→21:36)
[2017-12-12] MEDS ORDERED: Potassium Chloride 20 MEQ Tab.ER PO SCH (09:00)
[2017-12-12] MEDS: Magnesium Oxide 400 MG Tab PO SCH ×3 (10:00→21:36)
[2017-12-12] MEDS: Potassium Chloride 20 MEQ Packet PO SCH ×5 (10:00→21:36)
[2017-12-12] MEDS: Potassium Phosphate,Mb-Db/Sodium Phosphate,Mb-Db Packet PO SCH ×3 (10:00→21:36)
[2017-12-12] MEDS: Metoprolol Tartrate 25 MG Tab PO SCH ×2 (10:00→21:33)
[2017-12-12] MEDS: Thiamine 100 MG Tab PO SCH ×2 (10:00→10:16)
[2017-12-12] MEDS: NS + KCl 20mEq/L 1,000 ML IV SCH ×2 (10:12→20:14)
[2017-12-12] MEDS: Lidocaine 5% 700 MG Patch TOP SCH ×2 (10:15→11:32)
[2017-12-12] MEDS: Multivitamin Tab PO SCH ×2 (10:16→10:46)
--- NOTE | 2017-12-12 11:44 | PCM.PN ---
- General Info Date of Service: 12/12/17 Subjective Update: Patient is a 52-year-old female currently on hospital day #2 for hypokalemia, electrolyte abnormalities, gastritis with vomiting, secondary to chronic alcohol consumption. Patient has had multiple hospitalizations for this. She is doing better today. She is not having any chest pain, no shortness of breath. She doesn't really feel nauseated but does still have some epigastric discomfort. Hasn't tried anything by mouth yet this morning. Just got out of bed into the chair. - Patient Data Vitals - Most Recent: Last Vital Signs Temp 36.6 C 12/12/17 03:00 Pulse 110 H 12/11/17 23:18 Resp 20 12/12/17 07:56 BP 122/67 12/12/17 07:56 Pulse Ox 99 12/12/17 11:00 Weight - Most Recent: 55.248 kg I&O - Last 24 Hours: Intake & Output 12/11/17 12/12/17 12/12/17 22:59 06:59 14:59 Intake Total 850 1792 Output Total 450 725 Balance 400 1067 Lab Results Last 24 Hours: Laboratory Results - last 24 hr 12/12/17 12/12/17 12/12/17 Range/Units 07:05 07:05 07:05 WBC 5.4 (4.5-12.0) X10-3/uL RBC 3.72 (3.23-5.20) x10(6)uL Hgb 13.3 (11.5-15.5) g/dL Hct 37.9 (30.0-51.3) % MCV 101.8 H (80-96) fL MCH 35.7 H (27.7-33.6) pg MCHC 35.0 (32.2-35.4) g/dL RDW 12.7 (11.5-15.5) % Plt Count 98 L (125-369) X10(3)uL MPV 8.9 (7.4-10.4) fL Neut % (Auto) 73.9 (46-82) % Lymph % (Auto) 14.7 (13-37) % [place] % (Auto) 10.8 (4-12) % Eos % (Auto) 0 L (1.0-5.0) % Baso % (Auto) 0 (0-2) % Neut # (Auto) 4.0 (1.6-8.3) # Lymph # (Auto) 0.8 (0.6-5.0) # [place] # (Auto) 0.6 (0.0-1.3) # Eos # (Auto) 0.0 (0.0-0.8) # Baso # (Auto) 0.0 (0.0-0.2) # Sodium 143 (135-145) mmol/L Potassium 2.8 L* (3.5-5.3) mmol/L Chloride 105 D (100-110) mmol/L Carbon Dioxide 23 (21-32) mmol/L BUN 5 L (7-18) mg/dL Creatinine 0.7 (0.55-1.02) mg/dL Est Cr Clr Drug Dosing 81.63 mL/min Estimated GFR (MDRD) > 60 (>60) BUN/Creatinine Ratio 7.1 L (9-20) Glucose 110 D (80-116) mg/dL Hemoglobin A1c (4.5-6.2) % Calcium 8.3 L (8.6-10.2) mg/dL Magnesium 1.6 L (1.8-2.5) mg/dL Total Bilirubin 1.4 H (0.1-1.3) mg/dL AST 82 H D (5-25) IU/L ALT 76 H D (12-36) U/L Alkaline Phosphatase 126 H (56-112) IU/L Troponin I 0.329 H* (<0.017-0.056) ng/mL Total Protein 6.8 (6.0-8.0) g/dL Albumin 2.9 L (3.5-5.2) g/dL Globulin 3.9 g/dL Albumin/Globulin Ratio 0.7 12/12/18 Range/Units 07:05 WBC (4.5-12.0) X10-3/uL RBC (3.23-5.20) x10(6)uL Hgb (11.5-15.5) g/dL Hct (30.0-51.3) % MCV (80-96) fL MCH (27.7-33.6) pg MCHC (32.2-35.4) g/dL RDW (11.5-15.5) % Plt Count (125-369) X10(3)uL MPV (7.4-10.4) fL Neut % (Auto) (46-82) % Lymph % (Auto) (13-37) % [place] % (Auto) (4-12) % Eos % (Auto) (1.0-5.0) % Baso % (Auto) (0-2) % Neut # (Auto) (1.6-8.3) # Lymph # (Auto) (0.6-5.0) # [place] # (Auto) (0.0-1.3) # Eos # (Auto) (0.0-0.8) # Baso # (Auto) (0.0-0.2) # Sodium (135-145) mmol/L Potassium (3.5-5.3) mmol/L Chloride (100-110) mmol/L Carbon Dioxide (21-32) mmol/L BUN (7-18) mg/dL Creatinine (0.55-1.02) mg/dL Est Cr Clr Drug Dosing mL/min Estimated GFR (MDRD) (>60) BUN/Creatinine Ratio (9-20) Glucose (80-116) mg/dL Hemoglobin A1c 5.0 (4.5-6.2) % Calcium (8.6-10.2) mg/dL Magnesium (1.8-2.5) mg/dL Total Bilirubin (0.1-1.3) mg/dL AST (5-25) IU/L ALT (12-36) U/L Alkaline Phosphatase (56-112) IU/L Troponin I (<0.017-0.056) ng/mL Total Protein (6.0-8.0) g/dL Albumin (3.5-5.2) g/dL Globulin g/dL Albumin/Globulin Ratio Med Orders - Current: Current Medications Potassium Chloride 20 meq/ (Premix) 100 mls @ 50 mls/hr IV Q6H [facility] Last Admin: 12/12/17 09:17 Dose: 50 mls/hr Potassium Chloride/Sodium Chloride (Normal Saline With 20 Meq Kcl) 1,000 mls @ 100 mls/hr IV Q10H [facility] Last Admin: 12/12/17 10:12 Dose: 100 mls/hr Ketorolac Tromethamine (Toradol) 30 mg IVPUSH Q6H PRN PRN Reason: Pain Stop: 12/16/17 10:41 Last Admin: 12/11/17 18:47 Dose: 30 mg Levalbuterol HCl (Xopenex) 1.25 mg NEB Q4H PRN PRN Reason: Wheezing Last Admin: 12/11/17 15:10 Dose: 1.25 mg Lidocaine (Lidoderm 5%) 700 mg TOP DAILY [facility] Last Admin: 12/12/17 10:15 Dose: 700 mg Lorazepam (Ativan) 0.5 mg IVPUSH Q6H PRN PRN Reason: Anxiety Last Admin: 12/11/17 14:14 Dose: 0.5 mg Magnesium Oxide (Magnesium Oxide) 400 mg PO BID [facility] Last Admin: 12/12/17 10:00 Dose: Not Given Metoprolol Tartrate (Lopressor) 12.5 mg PO Q12H [facility] Last Admin: 12/12/17 10:00 Dose: Not Given Miscellaneous Information (Remove Patch) 1 ea TRDERM BEDTIME [facility] Last Admin: 12/11/17 17:30 Dose: 1 ea Multivitamins/Minerals/Vitamin C (Tab-A-Shelby) 1 tab PO DAILY [facility] Last Admin: 12/12/17 10:46 Dose: Not Given Potassium Chloride (Klor-Con) 40 meq PO QID [facility] Last Admin: 12/12/17 10:00 Dose: Not Given Potassium Phos/Sodium Phos (Phos-Nak Powder) 1 each PO BID [facility] Last Admin: 12/12/17 10:00 Dose: Not Given Promethazine HCl (Phenergan) 25 mg PO Q6H PRN PRN Reason: nausea, able to take PO Sodium Chloride (Saline Flush) 10 ml FLUSH ASDIRECTED PRN PRN Reason: IV Use Last Admin: 12/11/17 18:49 Dose: 10 ml Sucralfate (Carafate) 1 gm PO QIDACANDBED [facility] Last Admin: 12/12/17 11:24 Dose: Not Given Thiamine HCl (Vitamin B-1) 100 mg PO DAILY [facility] Last Admin: 12/12/17 10:00 Dose: Not Given Discontinued Medications Atorvastatin Calcium (Lipitor) 20 mg PO BEDTIME [facility] Bisacodyl (Dulcolax) 5 mg PO DAILY PRN PRN Reason: Constipation Budesonide (Pulmicort) 0.5 mg NEB ONETIME ONE Stop: 12/11/17 08:16 Last Admin: 12/11/17 09:19 Dose: 0.5 mg Famotidine (Pepcid) 20 mg PO BID [facility] Last Admin: 12/11/17 08:58 Dose: Not Given Folic Acid (Folic Acid) 1 mg PO DAILY [facility] Last Admin: 12/11/17 08:57 Dose: Not Given Hydroxyzine HCl (Atarax) 25 mg PO TID PRN PRN Reason: ANXIETY Sodium Chloride (Normal Saline) 1,000 mls @ 999 mls/hr IV .BOLUS ONE Stop: 12/11/17 01:41 Last Admin: 12/11/17 01:15 Dose: 999 mls/hr Multivitamins/Minerals 10 ml/Thiamine HCl 200 mg/ Chromium/Copper/Manganese/ Seleni/Zn 1 ml/ Dextrose/Lactated Ringer's 1,013 mls @ 999 mls[facility] Multivitamins/Minerals 10 ml/Thiamine HCl 200 mg/ Dextrose/Lactated Ringer's 1, 012 mls @ 998.137 mls/hr [facility] Last Admin: 12/11/17 03:16 Dose: 998.137 mls/hr Multivitamins/Minerals 10 ml/Thiamine HCl 100 mg/ Folic Acid 1 mg/ Magnesium Sulfate 3 gm/ Sodium Chloride 1,017.2 mls @ 500 mls/hr IV NOW STA Stop: 12/11/17 04:42 Last Admin: 12/11/17 08:11 Dose: Not Given Dextrose/Lactated Ringer's (Dextrose 5%-Lactated Ringers) 1,000 mls @ 150 mls/ hr IV ASDIRECTED [facility] Last Admin: 12/11/17 04:00 Dose: 150 mls/hr Sodium Chloride (Normal Saline) 1,000 mls @ 999 mls/hr IV ASDIRECTED [facility] Last Admin: 12/11/17 08:10 Dose: 999 mls/hr Magnesium Sulfate 4 gm/ Premix 50 mls @ 150 mls/hr IV ONETIME ONE Stop: 12/11/17 09:19 Last Admin: 12/11/17 09:06 Dose: 150 mls/hr Sodium Chloride (Normal Saline) 1,000 mls @ 200 [facility]ls[facility] Last Admin: 12/12/17 04:53 Dose: 200 mls/hr Lidocaine (Lidoderm 5%) 700 mg TOP Q24H [facility] Last Admin: 12/12/17 11:32 Dose: Not Given Lidocaine (Lidoderm 5%) 700 mg TOP Q24H [facility] Magnesium Oxide (Magnesium Oxide) 400 mg PO DAILY [facility] Last Admin: 12/11/17 08:58 Dose: Not Given Metoprolol Tartrate (Lopressor) Confirm Administered Dose 5 mg .ROUTE .STK-MED ONE Stop: 12/11/17 06:01 Last Admin: 12/11/17 06:10 Dose: Not Given Metoprolol Tartrate (Lopressor) 25 mg PO Q12H [facility] Last Admin: 12/11/17 08:13 Dose: Not Given Metoprolol Tartrate (Lopressor) 5 mg IVPUSH ONETIME ONE Stop: 12/11/17 05:31 Last Admin: 12/11/17 06:10 Dose: 5 mg Nitroglycerin (Nitro-Bid 2%) Confirm Administered Dose 1 gm .ROUTE .STK-MED ONE Stop: 12/11/17 06:03 Last Admin: 12/11/17 08:25 Dose: Not Given Nitroglycerin (Nitrostat) 0.4 mg SL ASDIRECTED PRN PRN Reason: Anxiety Nitroglycerin (Nitro-Bid 2%) 1 gm TOP ONETIME ONE Stop: 12/11/17 05:31 Last Admin: 12/11/17 08:14 Dose: 1 gm Ondansetron HCl (Zofran Odt) 4 mg PO Q6H PRN PRN Reason: nausea, able to take PO Potassium Chloride (Klor-Con M20) 20 meq PO BID [facility] Last Admin: 12/11/17 21:29 Dose: Not Given - Exam General: Alert, Oriented, Cooperative, No Acute Distress, Other (Cachectic.) HEENT: Pupils Equal, Pupils Reactive Neck: Supple Lungs: Clear to Auscultation, Normal Respiratory Effort Cardiovascular: Regular Rhythm, No Murmurs, Tachycardia GI/Abdominal Exam: Normal Bowel Sounds, Soft, Tender Extremities: Normal Inspection, No Pedal Edema - Problem List & Annotations (1) Hypovolemia associated with vomiting SNOMED Code(s): 84441627, 671391475 Code(s): E86.1 - HYPOVOLEMIA Status: Acute Current Visit: No Annotation /Comment:: Starting clear liquids today. Had 3+ liters IV fluids so we will turn her down to 75 mL an hour of normal saline plus potassium. If she tolerates oral we can discontinue IV fluids. No Zofran because of QT prolongation. (2) Hypotension SNOMED Code(s): 56420725 Code(s): I95.9 - HYPOTENSION, UNSPECIFIED Status: Acute Current Visit: Yes Qualifiers: Hypotension type: unspecified hypotension type Qualified Code(s): I95.9 - Hypotension, unspecified Annotation/Comment:: Now resolved. Restart beta ike therapy as below. (3) Malnutrition SNOMED Code(s): 32868471 Code(s): E46 - UNSPECIFIED PROTEIN-CALORIE MALNUTRITION Status: Acute Current Visit: Yes Qualifiers: Malnutrition type: unspecified type Qualified Code(s): E46 - Unspecified protein-calorie malnutrition Annotation/Comment:: Patient clearly is not taking adequate nutrition as an outpatient. Has been resistant to interventions to improve her nutritional status. (4) Acute on chronic pancreatitis SNOMED Code(s): 363648385 Code(s): K85.90 - ACUTE PANCREATITIS WITHOUT NECROSIS OR INFECTION, UNSP; K86.1 - OTHER CHRONIC PANCREATITIS Status: Acute Current Visit: No Annotation/Comment:: Significantly improved. Continue monitoring. Clear liquids have been shown to improve course of pancreatitis if patient able to tolerate early. (5) CAD (coronary atherosclerotic disease) SNOMED Code(s): 204272409 Code(s): I25.10 - ATHSCL HEART DISEASE OF [place] CORONARY ARTERY W/O ANG PCTRS Status: Acute Current Visit: No Annotation/Comment:: Restart oral beta ike at this time. Patient has previously been prescribed aspirin, beta ike, CHRISTY inhibitor. Has been inconsistently compliant with medications. Testing done in February 2017 showed demand ischemia with normal echo with ejection fraction of 60% and a mildly abnormal Jenna scan. No left heart catheterization was recommended by cardiology. (6) Hypokalemia SNOMED Code(s): 29470048 Code(s): E87.6 - HYPOKALEMIA Status: Acute Current Visit: No Annotation /Comment:: Continue to replace IV and by mouth. (7) Hypomagnesemia SNOMED Code(s): 746451246 Code(s): E83.42 - HYPOMAGNESEMIA Status: Acute Current Visit: No Annotation/Comment:: Replace by mouth. (8) Alcohol abuse SNOMED Code(s): 32846461 Code(s): F10.10 - ALCOHOL ABUSE, UNCOMPLICATED Status: Acute Current Visit: No Annotation/Comment:: Patient has been not amenable to treatment or interventions. (9) QT prolongation SNOMED Code(s): 936686477 Code(s): R94.31 - ABNORMAL ELECTROCARDIOGRAM [ECG] [EKG] Status: Acute Current Visit: No Annotation/Comment:: Baseline 500 previous hospitalization without QT prolongation meds. Continue BB therapy and avoid QT prolongation meds. (10) DVT prophylaxis SNOMED Code(s): 040230546, 018448848 Code(s): UWR0691 - Status: Acute Current Visit: Yes Annotation/Comment :: We will hold Lovenox for low platelets today. Patient also had an episode of blood in her emesis on presentation. Hemoglobin has been stable. SCDs. - Problem List Review Problem List Initiated/Reviewed/Updated: Yes - My Orders Last 24 Hours: My Active Orders 12/12/17 08:39 BASIC METABOLIC PANEL,BMP [CHEM] DAILY 12/12/17 08:43 SCD [Sequential Compression Device] [OM.PC] Routine 12/12/17 08:45 Metoprolol Tartrate [Lopressor] 12.5 mg PO Q12H NS + KCl 20mEq/L [Normal Saline with 20 mEq KCl] 1,000 ml IV Q10H 12/12/17 09:00 Magnesium Oxide 400 mg PO BID Potassium Chloride [Klor-Con] 40 meq PO QID 12/13/17 05:11 MAGNESIUM [CHEM] AM PHOSPHORUS [CHEM] AM 12/13/17 08:39 BASIC METABOLIC PANEL,BMP [CHEM] DAILY 12/14/17 05:11 MAGNESIUM [CHEM] AM PHOSPHORUS [CHEM] AM 12/14/17 08:39 BASIC METABOLIC PANEL,BMP [CHEM] DAILY 12/15/17 05:11 MAGNESIUM [CHEM] AM PHOSPHORUS [CHEM] AM
--- NOTE | 2017-12-12 11:55 | CR ---
INDICATION: Chest pain. CHEST: A portable AP upright view of the chest was obtained 12/10/2017 and compared with 10/25/2016 and 06/19/2016, again revealing the heart to be normal in size and shape. Mediastinum appeared unremarkable, except for suggestion of some minimal calcification in the arch of the aorta. Overlying EKG leads are noted. A definite active infiltrate or effusion was not identified. IMPRESSION: 1. Fairly stable appearance of the chest. 2. No acute process. 3. Minimal ASD aorta. MTDD
[2017-12-12] MEDS: Ketorolac 30 MG/ML SDV IVPUSH PRN (19:35)
[2017-12-13] MEDS: Potassium Chloride 20 MEQ in Premix Bag 1 BAG IV SCH (03:04)
[2017-12-13] MEDS: LORazepam 2 MG/ML SDV IVPUSH PRN ×2 (04:26→19:35)
[2017-12-13] MEDS: NS + KCl 20mEq/L 1,000 ML IV SCH (06:25)
[2017-12-13] MEDS: Sucralfate 1 GM Tab PO SCH ×4 (07:38→21:56)
[2017-12-13] MEDS: Sodium Chloride 0.9% 10 ML Syringe FLUSH PRN ×3 (07:38→20:52)
--- NOTE | 2017-12-13 08:17 | PCM.PN ---
- General Info Date of Service: 12/13/17 Subjective Update: Patient is a 52-year-old female currently on hospital day #3 for acute on chronic pancreatitis, and alcoholism, protracted nausea and vomiting, malnutrition. The patient continues to feel nauseated. She is taking some clear liquids. She has a cough which is persistent and sounds productive. She's had no fevers. No chills. Her chest hurts when she coughs but otherwise is pain free. Heart rate after restarting beta ike did well yesterday and she tolerated the decrease in IV fluids well. Phosphorus level came back at less than 0.5 this morning from 2.3 on admission which I am attributing to redistribution particularly given her not taking any alcohol which is unusual for her. Continue to encourage oral supplementation today. No SOB. - Patient Data Vitals - Most Recent: Last Vital Signs Temp 37.3 C 12/13/17 07:39 Pulse 107 H 12/13/17 00:00 Resp 20 12/13/17 07:39 BP 115/68 12/13/17 07:39 Pulse Ox 94 L 12/13/17 07:39 Weight - Most Recent: 56.245 kg I&O - Last 24 Hours: Intake & Output 12/12/17 12/13/17 12/13/17 22:59 06:59 14:59 Intake Total 1050 1102 Output Total 350 375 Balance 700 727 Lab Results Last 24 Hours: Laboratory Results - last 24 hr 12/12/17 12/13/17 12/13/17 Range/Units 07:05 06:20 06:20 Sodium 144 (135-145) mmol/L Potassium 3.5 (3.5-5.3) mmol/L Chloride 106 (100-110) mmol/L Carbon Dioxide 28 (21-32) mmol/L BUN 2 L (7-18) mg/dL Creatinine 0.5 L (0.55-1.02) mg/dL Est Cr Clr Drug Dosing 118.19 mL/min Estimated GFR (MDRD) > 60 (>60) BUN/Creatinine Ratio 4.0 L (9-20) Glucose 99 (80-116) mg/dL Calcium 8.3 L (8.6-10.2) mg/dL Phosphorus < 0.5 L* (2.6-4.6) mg/dL Magnesium 1.5 L (1.8-2.5) mg/dL Ammonia <9 Med Orders - Current: Current Medications Potassium Chloride 20 meq/ (Premix) 100 mls @ 50 mls/hr IV Q6H [facility] Last Admin: 12/13/17 03:04 Dose: 50 mls/hr Potassium Chloride/Sodium Chloride (Normal Saline With 20 Meq Kcl) 1,000 mls @ 100 mls/hr IV Q10H [facility] Last Admin: 12/13/17 06:25 Dose: 100 mls/hr Ketorolac Tromethamine (Toradol) 30 mg IVPUSH Q6H PRN PRN Reason: Pain Stop: 12/16/17 10:41 Last Admin: 12/12/17 19:35 Dose: 30 mg Levalbuterol HCl (Xopenex) 1.25 mg NEB Q4H PRN PRN Reason: Wheezing Last Admin: 12/11/17 15:10 Dose: 1.25 mg Lidocaine (Lidoderm 5%) 700 mg TOP DAILY [facility] Last Admin: 12/12/17 10:15 Dose: 700 mg Lorazepam (Ativan) 0.5 mg IVPUSH Q6H PRN PRN Reason: Anxiety Last Admin: 12/13/17 04:26 Dose: 0.5 mg Magnesium Oxide (Magnesium Oxide) 400 mg PO BID [facility] Last Admin: 12/12/17 21:36 Dose: Not Given Metoprolol Tartrate (Lopressor) 12.5 mg PO Q12H [facility] Last Admin: 12/12/17 21:33 Dose: 12.5 mg Miscellaneous Information (Remove Patch) 1 ea TRDERM BEDTIME [facility] Last Admin: 12/12/17 21:31 Dose: 1 ea Multivitamins/Minerals/Vitamin C (Tab-A-Shelby) 1 tab PO DAILY [facility] Last Admin: 12/12/17 10:46 Dose: Not Given Potassium Chloride (Klor-Con) 40 meq PO QID [facility] Last Admin: 12/12/17 21:36 Dose: Not Given Potassium Phos/Sodium Phos (Phos-Nak Powder) 1 each PO QID [facility] Promethazine HCl (Phenergan) 25 mg PO Q6H PRN PRN Reason: nausea, able to take PO Sodium Chloride (Saline Flush) 10 ml FLUSH ASDIRECTED PRN PRN Reason: IV Use Last Admin: 12/13/17 07:38 Dose: 10 ml Sucralfate (Carafate) 1 gm PO QIDACANDBED [facility] Last Admin: 12/13/17 07:38 Dose: Not Given Thiamine HCl (Vitamin B-1) 100 mg PO DAILY [facility] Last Admin: 12/12/17 10:00 Dose: Not Given Discontinued Medications Atorvastatin Calcium (Lipitor) 20 mg PO BEDTIME [facility] Bisacodyl (Dulcolax) 5 mg PO DAILY PRN PRN Reason: Constipation Budesonide (Pulmicort) 0.5 mg NEB ONETIME ONE Stop: 12/11/17 08:16 Last Admin: 12/11/17 09:19 Dose: 0.5 mg Famotidine (Pepcid) 20 mg PO BID [facility] Last Admin: 12/11/17 08:58 Dose: Not Given Folic Acid (Folic Acid) 1 mg PO DAILY [facility] Last Admin: 12/11/17 08:57 Dose: Not Given Hydroxyzine HCl (Atarax) 25 mg PO TID PRN PRN Reason: ANXIETY Sodium Chloride (Normal Saline) 1,000 mls @ 999 mls/hr IV .BOLUS ONE Stop: 12/11/17 01:41 Last Admin: 12/11/17 01:15 Dose: 999 mls/hr Multivitamins/Minerals 10 ml/Thiamine HCl 200 mg/ Chromium/Copper/Manganese/ Seleni/Zn 1 ml/ Dextrose/Lactated Ringer's 1,013 mls @ 999 mls/hr IV ASDIRECTED [facility] Multivitamins/Minerals 10 ml/Thiamine HCl 200 mg/ Dextrose/Lactated Ringer's 1, 012 mls @ 998.137 mls/hr IV ASDIRECTED [facility] Last Admin: 12/11/17 03:16 Dose: 998.137 mls/hr Multivitamins/Minerals 10 ml/Thiamine HCl 100 mg/ Folic Acid 1 mg/ Magnesium Sulfate 3 gm/ Sodium Chloride 1,017.2 mls @ 500 mls/hr IV NOW STA Stop: 12/11/17 04:42 Last Admin: 12/11/17 08:11 Dose: Not Given Dextrose/Lactated Ringer's (Dextrose 5%-Lactated Ringers) 1,000 mls @ 150 mls/ hr IV ASDIRECTED [facility] Last Admin: 12/11/17 04:00 Dose: 150 mls/hr Sodium Chloride (Normal Saline) 1,000 mls @ 999 mls/hr IV ASDIRECTED [facility] Last Admin: 12/11/17 08:10 Dose: 999 mls/hr Magnesium Sulfate 4 gm/ Premix 50 mls @ 150 mls/hr IV ONETIME ONE Stop: 12/11/17 09:19 Last Admin: 12/11/17 09:06 Dose: 150 mls/hr Sodium Chloride (Normal Saline) 1,000 mls @ 200 mls/hr IV ASDIRECTED [facility] Last Admin: 12/12/17 04:53 Dose: 200 mls/hr Lidocaine (Lidoderm 5%) 700 mg TOP Q24H [facility] Last Admin: 12/12/17 11:32 Dose: Not Given Lidocaine (Lidoderm 5%) 700 mg TOP Q24H [facility] Magnesium Oxide (Magnesium Oxide) 400 mg PO DAILY [facility] Last Admin: 12/11/17 08:58 Dose: Not Given Metoprolol Tartrate (Lopressor) Confirm Administered Dose 5 mg .ROUTE .STK-MED ONE Stop: 12/11/17 06:01 Last Admin: 12/11/17 06:10 Dose: Not Given Metoprolol Tartrate (Lopressor) 25 mg PO Q12H [facility] Last Admin: 12/11/17 08:13 Dose: Not Given Metoprolol Tartrate (Lopressor) 5 mg IVPUSH ONETIME ONE Stop: 12/11/17 05:31 Last Admin: 12/11/17 06:10 Dose: 5 mg Nitroglycerin (Nitro-Bid 2%) Confirm Administered Dose 1 gm .ROUTE .STK-MED ONE Stop: 12/11/17 06:03 Last Admin: 12/11/17 08:25 Dose: Not Given Nitroglycerin (Nitrostat) 0.4 mg SL ASDIRECTED PRN PRN Reason: Anxiety Nitroglycerin (Nitro-Bid 2%) 1 gm TOP ONETIME ONE Stop: 12/11/17 05:31 Last Admin: 12/11/17 08:14 Dose: 1 gm Ondansetron HCl (Zofran Odt) 4 mg PO Q6H PRN PRN Reason: nausea, able to take PO Potassium Chloride (Klor-Con M20) 20 meq PO BID [facility] Last Admin: 12/11/17 21:29 Dose: Not Given Potassium Phos/Sodium Phos (Phos-Nak Powder) 1 each PO BID [facility] Last Admin: 12/12/17 21:36 Dose: Not Given - Exam General: Alert (cachectic.), Oriented, Cooperative HEENT: Pupils Equal, Pupils Reactive Neck: Supple Lungs: Clear to Auscultation, Normal Respiratory Effort Cardiovascular: Regular Rhythm, No Murmurs, Tachycardia GI/Abdominal Exam: Normal Bowel Sounds, Soft, No Distention, Tender (in epigastrium, mild.) Back Exam: Normal Inspection Extremities: No Pedal Edema Psy/Mental Status: Alert - Problem List & Annotations (1) Hypovolemia associated with vomiting SNOMED Code(s): 80623055, 767959766 Code(s): E86.1 - HYPOVOLEMIA Status: Acute Current Visit: No Annotation /Comment:: Now with cough. CXR this am to rule out aspiration pneumonia. IVF at 75 cc/hr. Will lock today and continue to encourage PO intake. (2) Hypotension SNOMED Code(s): 35702269 Code(s): I95.9 - HYPOTENSION, UNSPECIFIED Status: Acute Current Visit: Yes Qualifiers: Hypotension type: unspecified hypotension type Qualified Code(s): I95.9 - Hypotension, unspecified Annotation/Comment:: Now resolved. Tolerating BB therapy. (3) Malnutrition SNOMED Code(s): 20502384 Code(s): E46 - UNSPECIFIED PROTEIN-CALORIE MALNUTRITION Status: Acute Current Visit: Yes Qualifiers: Malnutrition type: unspecified type Qualified Code(s): E46 - Unspecified protein-calorie malnutrition Annotation/Comment:: Patient clearly is not taking adequate nutrition as an outpatient. Has been resistant to interventions to improve her nutritional status. (4) Acute on chronic pancreatitis SNOMED Code(s): 137736098 Code(s): K85.90 - ACUTE PANCREATITIS WITHOUT NECROSIS OR INFECTION, UNSP; K86.1 - OTHER CHRONIC PANCREATITIS Status: Acute Current Visit: No Annotation/Comment:: Significantly improved. Continue monitoring. Continue liquids. (5) CAD (coronary atherosclerotic disease) SNOMED Code(s): 073312639 Code(s): I25.10 - ATHSCL HEART DISEASE OF [place] CORONARY ARTERY W/O ANG PCTRS Status: Acute Current Visit: No Annotation/Comment:: Continue BB. Patient has previously been prescribed aspirin, beta ike, CHRISTY inhibitor. Has been inconsistently compliant with medications. Testing done in February 2017 showed demand ischemia with normal echo with ejection fraction of 60% and a mildly abnormal Jenna scan. No left heart catheterization was recommended by cardiology. (6) Hypokalemia SNOMED Code(s): 54143924 Code(s): E87.6 - HYPOKALEMIA Status: Acute Current Visit: No Annotation /Comment:: Continue to replace IV and by mouth. (7) Hypomagnesemia SNOMED Code(s): 973079192 Code(s): E83.42 - HYPOMAGNESEMIA Status: Acute Current Visit: No Annotation/Comment:: Replace by mouth. (8) Alcohol abuse SNOMED Code(s): 28480026 Code(s): F10.10 - ALCOHOL ABUSE, UNCOMPLICATED Status: Acute Current Visit: No Annotation/Comment:: Patient has been not amenable to treatment or interventions. Again offered assistance and declined. (9) QT prolongation SNOMED Code(s): 585268691 Code(s): R94.31 - ABNORMAL ELECTROCARDIOGRAM [ECG] [EKG] Status: Acute Current Visit: No Annotation/Comment:: Baseline 500 previous hospitalization without QT prolongation meds. Continue BB therapy and avoid QT prolongation meds. (10) Hypophosphatemia SNOMED Code(s): 4579676 Code(s): E83.39 - OTHER DISORDERS OF PHOSPHORUS METABOLISM Status: Acute Current Visit: Yes Annotation/Comment:: Replace PO. I am going to hold IV replacement for now as has increased risk and patient taking some liquids, increase powder to QID. (11) DVT prophylaxis SNOMED Code(s): 589381617, 647510425 Code(s): QQR2841 - Status: Acute Current Visit: Yes Annotation/Comment :: We will hold Lovenox for low platelets and hematemesis on admission. Hemoglobin has been stable. SCDs. - Problem List Review Problem List Initiated/Reviewed/Updated: Yes - My Orders Last 24 Hours: My Active Orders 12/12/17 08:43 SCD [Sequential Compression Device] [OM.PC] Routine 12/12/17 08:45 Metoprolol Tartrate [Lopressor] 12.5 mg PO Q12H NS + KCl 20mEq/L [Normal Saline with 20 mEq KCl] 1,000 ml IV Q10H 12/12/17 09:00 Magnesium Oxide 400 mg PO BID Potassium Chloride [Klor-Con] 40 meq PO QID 12/12/17 11:48 Telemetry Monitoring [Cardiac Monitoring] [RC] 08,16,00 12/12/17 Dinner Clear Liquid Diet [DIET] Clear Liquid Diet [DIET] 12/13/17 07:12 CXR [Chest 1V Frontal] [CR] Routine 12/13/17 09:00 NaPh,FedericaDb/K Ph,MB-DB [Phos-NaK Powder] 1 each PO QID 12/14/17 05:11 MAGNESIUM [CHEM] AM PHOSPHORUS [CHEM] AM 12/14/17 08:39 BASIC METABOLIC PANEL,BMP [CHEM] DAILY 12/15/17 05:11 MAGNESIUM [CHEM] AM PHOSPHORUS [CHEM] AM
[2017-12-13] MEDS: Metoprolol Tartrate 25 MG Tab PO SCH ×2 (09:23→21:51)
[2017-12-13] MEDS: Potassium Phosphate,Mb-Db/Sodium Phosphate,Mb-Db Packet PO SCH ×4 (09:24→21:48)
[2017-12-13] MEDS: Lidocaine 5% 700 MG Patch TOP SCH (09:25)
[2017-12-13] MEDS: Potassium Chloride 20 MEQ Packet PO SCH ×4 (09:45→21:51)
[2017-12-13] MEDS: Thiamine 100 MG Tab PO SCH (09:45)
[2017-12-13] MEDS: Multivitamin Tab PO SCH (09:45)
[2017-12-13] MEDS: Magnesium Oxide 400 MG Tab PO SCH ×2 (09:45→21:51)
[2017-12-13] MEDS: Ampicillin/Sulbactam Na 3 GM in Sodium Chloride 0.9% 100 ML IV SCH (19:41)
[2017-12-14] MEDS: Ampicillin/Sulbactam Na 3 GM in Sodium Chloride 0.9% 100 ML IV SCH ×4 (01:05→19:07)
[2017-12-14] MEDS: LORazepam 2 MG/ML SDV IVPUSH PRN (01:05)
--- NOTE | 2017-12-14 08:34 | PCM.PN ---
- General Info Date of Service: 12/14/17 Subjective Update: Patient is a 52-year-old female currently on hospital day #4 for acute on chronic pancreatitis, and alcoholism, protracted nausea and vomiting, malnutrition. Yesterday's xray showed perihilar infiltrates consistent with aspiration pneumonia, and patient was started on unasyn. Cough is almost gone today. She is feeling much better and wondering when she can go home. No CP, no SOB, no N/V. No fevers or chills. - Patient Data Vitals - Most Recent: Last Vital Signs Temp 37.4 C 12/14/17 08:15 Pulse 112 H 12/14/17 08:15 Resp 22 H 12/14/17 08:15 BP 127/72 12/14/17 08:15 Pulse Ox 96 12/14/17 08:15 Weight - Most Recent: 55.423 kg I&O - Last 24 Hours: Intake & Output 12/13/17 12/14/17 12/14/17 22:59 06:59 14:59 Intake Total 98 96 100 Balance 98 96 100 Lab Results Last 24 Hours: Laboratory Results - last 24 hr 12/14/17 12/14/17 12/14/17 Range/Units 06:20 06:20 06:20 WBC 5.3 (4.5-12.0) X10-3/uL RBC 3.60 (3.23-5.20) x10(6)uL Hgb 12.6 (11.5-15.5) g/dL Hct 36.5 (30.0-51.3) % MCV 101.4 H (80-96) fL MCH 35.0 H (27.7-33.6) pg MCHC 34.5 (32.2-35.4) g/dL RDW 12.6 (11.5-15.5) % Plt Count 102 L (125-369) X10(3)uL MPV 9.2 (7.4-10.4) fL Neut % (Auto) 61.3 (46-82) % Lymph % (Auto) 26.5 (13-37) % [place] % (Auto) 8.9 (4-12) % Eos % (Auto) 2 (1.0-5.0) % Baso % (Auto) 2 (0-2) % Neut # (Auto) 3.2 (1.6-8.3) # Lymph # (Auto) 1.4 (0.6-5.0) # [place] # (Auto) 0.5 (0.0-1.3) # Eos # (Auto) 0.1 (0.0-0.8) # Baso # (Auto) 0.1 (0.0-0.2) # Sodium 144 (135-145) mmol/L Potassium 2.6 L* (3.5-5.3) mmol/L Chloride 104 (100-110) mmol/L Carbon Dioxide 33 H (21-32) mmol/L BUN 3 L (7-18) mg/dL Creatinine 0.4 L (0.55-1.02) mg/dL Est Cr Clr Drug Dosing 147.74 mL/min Estimated GFR (MDRD) > 60 (>60) BUN/Creatinine Ratio 7.5 L (9-20) Glucose 103 (80-116) mg/dL Calcium 8.3 L (8.6-10.2) mg/dL Phosphorus 0.8 L* (2.6-4.6) mg/dL Magnesium 1.4 L (1.8-2.5) mg/dL Med Orders - Current: Current Medications Ampicillin Sodium/Sulbactam (Sodium 3 gm/ Sodium Chloride) 100 mls @ 100 mls/ hr IV Q6H [facility] [place] Last Admin: 12/14/17 06:45 Dose: 100 mls/hr Levalbuterol HCl (Xopenex) 1.25 mg NEB Q4H PRN PRN Reason: Wheezing Last Admin: 12/11/17 15:10 Dose: 1.25 mg Lidocaine (Lidoderm 5%) 700 mg TOP DAILY [facility] [place] Last Admin: 12/13/17 09:25 Dose: 700 mg Lorazepam (Ativan) 0.5 mg IVPUSH Q6H PRN PRN Reason: Anxiety Last Admin: 12/14/17 01:05 Dose: 0.5 mg Magnesium Oxide (Magnesium Oxide) 400 mg PO BID [facility] [place] Last Admin: 12/13/17 21:51 Dose: Not Given Metoprolol Tartrate (Lopressor) 12.5 mg PO Q12H [facility] [place] Last Admin: 12/13/17 21:51 Dose: Not Given Miscellaneous Information (Remove Patch) 1 ea TRDERM BEDTIME [facility] [place] Last Admin: 12/13/17 21:52 Dose: 1 ea Multivitamins/Minerals/Vitamin C (Tab-A-Shelby) 1 tab PO DAILY [facility] [place] Last Admin: 12/13/17 09:45 Dose: Not Given Potassium Chloride (Klor-Con) 40 meq PO QID [facility] [place] Last Admin: 12/13/17 21:51 Dose: Not Given Potassium Phos/Sodium Phos (Phos-Nak Powder) 1 each PO QID [facility] [place] Last Admin: 12/13/17 21:48 Dose: 1 packet Promethazine HCl (Phenergan) 25 mg PO Q6H PRN PRN Reason: nausea, able to take PO Sodium Chloride (Saline Flush) 10 ml FLUSH ASDIRECTED PRN PRN Reason: IV Use Last Admin: 12/13/17 20:52 Dose: 10 ml Sucralfate (Carafate) 1 gm PO QIDACANDBED [facility] [place] Last Admin: 12/13/17 21:56 Dose: Not Given Thiamine HCl (Vitamin B-1) 100 mg PO DAILY [facility] [place] Last Admin: 12/13/17 09:45 Dose: Not Given Discontinued Medications Atorvastatin Calcium (Lipitor) 20 mg PO BEDTIME [facility] [place] Bisacodyl (Dulcolax) 5 mg PO DAILY PRN PRN Reason: Constipation Budesonide (Pulmicort) 0.5 mg NEB ONETIME ONE Stop: 12/11/17 08:16 Last Admin: 12/11/17 09:19 Dose: 0.5 mg Famotidine (Pepcid) 20 mg PO BID [facility] [place] Last Admin: 12/11/17 08:58 Dose: Not Given Folic Acid (Folic Acid) 1 mg PO DAILY [facility] [place] Last Admin: 12/11/17 08:57 Dose: Not Given Hydroxyzine HCl (Atarax) 25 mg PO TID PRN PRN Reason: ANXIETY Sodium Chloride (Normal Saline) 1,000 mls @ 999 mls/hr IV .BOLUS ONE Stop: 12/11/17 01:41 Last Admin: 12/11/17 01:15 Dose: 999 mls/hr Multivitamins/Minerals 10 ml/Thiamine HCl 200 mg/ Chromium/Copper/Manganese/ Seleni/Zn 1 ml/ Dextrose/Lactated Ringer's 1,013 mls @ 999 mls/hr IV ASDIRECTED [facility] [place] Multivitamins/Minerals 10 ml/Thiamine HCl 200 mg/ Dextrose/Lactated Ringer's 1, 012 mls @ 998.137 mls/hr IV ASDIRECTED [facility] [place] Last Admin: 12/11/17 03:16 Dose: 998.137 mls/hr Multivitamins/Minerals 10 ml/Thiamine HCl 100 mg/ Folic Acid 1 mg/ Magnesium Sulfate 3 gm/ Sodium Chloride 1,017.2 mls @ 500 mls/hr IV NOW STA Stop: 12/11/17 04:42 Last Admin: 12/11/17 08:11 Dose: Not Given Dextrose/Lactated Ringer's (Dextrose 5%-Lactated Ringers) 1,000 mls @ 150 mls/ hr IV ASDIRECTED [facility] [place] Last Admin: 12/11/17 04:00 Dose: 150 mls/hr Potassium Chloride 20 meq/ (Premix) 100 mls @ 50 mls/hr IV Q6H [facility] [place] Last Admin: 12/13/17 03:04 Dose: 50 mls/hr Sodium Chloride (Normal Saline) 1,000 mls @ 999 mls/hr IV ASDIRECTED [facility] [place] Last Admin: 12/11/17 08:10 Dose: 999 mls/hr Magnesium Sulfate 4 gm/ Premix 50 mls @ 150 mls/hr IV ONETIME ONE Stop: 12/11/17 09:19 Last Admin: 12/11/17 09:06 Dose: 150 mls/hr Sodium Chloride (Normal Saline) 1,000 mls @ 200 mls/hr IV ASDIRECTED [facility] [place] Last Admin: 12/12/17 04:53 Dose: 200 mls/hr Potassium Chloride/Sodium Chloride (Normal Saline With 20 Meq Kcl) 1,000 mls @ 100 mls/hr IV Q10H [facility] [place] Last Admin: 12/13/17 06:25 Dose: 100 mls/hr Ketorolac Tromethamine (Toradol) 30 mg IVPUSH Q6H PRN PRN Reason: Pain Stop: 12/16/17 10:41 Last Admin: 12/12/17 19:35 Dose: 30 mg Lidocaine (Lidoderm 5%) 700 mg TOP Q24H [facility] [place] Last Admin: 12/12/17 11:32 Dose: Not Given Lidocaine (Lidoderm 5%) 700 mg TOP Q24H [facility] [place] Magnesium Oxide (Magnesium Oxide) 400 mg PO DAILY [facility] [place] Last Admin: 12/11/17 08:58 Dose: Not Given Metoprolol Tartrate (Lopressor) Confirm Administered Dose 5 mg .ROUTE .STK-MED ONE Stop: 12/11/17 06:01 Last Admin: 12/11/17 06:10 Dose: Not Given Metoprolol Tartrate (Lopressor) 25 mg PO Q12H [facility] [place] Last Admin: 12/11/17 08:13 Dose: Not Given Metoprolol Tartrate (Lopressor) 5 mg IVPUSH ONETIME ONE Stop: 12/11/17 05:31 Last Admin: 12/11/17 06:10 Dose: 5 mg Nitroglycerin (Nitro-Bid 2%) Confirm Administered Dose 1 gm .ROUTE .STK-MED ONE Stop: 12/11/17 06:03 Last Admin: 12/11/17 08:25 Dose: Not Given Nitroglycerin (Nitrostat) 0.4 mg SL ASDIRECTED PRN PRN Reason: Anxiety Nitroglycerin (Nitro-Bid 2%) 1 gm TOP ONETIME ONE Stop: 12/11/17 05:31 Last Admin: 12/11/17 08:14 Dose: 1 gm Ondansetron HCl (Zofran Odt) 4 mg PO Q6H PRN PRN Reason: nausea, able to take PO Potassium Chloride (Klor-Con M20) 20 meq PO BID [facility] [place] Last Admin: 12/11/17 21:29 Dose: Not Given Potassium Phos/Sodium Phos (Phos-Nak Powder) 1 each PO BID [facility] [place] Last Admin: 12/12/17 21:36 Dose: Not Given - Exam General: Alert, Oriented, Cooperative HEENT: Pupils Equal, Pupils Reactive Neck: Supple Lungs: Crackles (right lower base, otherwise clear.) Cardiovascular: Regular Rate, Regular Rhythm, No Murmurs GI/Abdominal Exam: Normal Bowel Sounds, Soft, No Distention, Tender Back Exam: Normal Inspection Extremities: No Pedal Edema - Problem List & Annotations (1) Aspiration pneumonia SNOMED Code(s): 213176975 Code(s): J69.0 - PNEUMONITIS DUE TO INHALATION OF FOOD AND VOMIT Status: Acute Current Visit: Yes Annotation/Comment:: Responding well to unasyn. Patient likely will discharge home tomorrow on Augmentin. (2) Hypovolemia associated with vomiting SNOMED Code(s): 35802496, 854295549 Code(s): E86.1 - HYPOVOLEMIA Status: Acute Current Visit: No Annotation /Comment:: Resolved. Advance diet as tolerated. (3) Hypotension SNOMED Code(s): 47176064 Code(s): I95.9 - HYPOTENSION, UNSPECIFIED Status: Acute Current Visit: Yes Qualifiers: Hypotension type: unspecified hypotension type Qualified Code(s): I95.9 - Hypotension, unspecified Annotation/Comment:: Now resolved. Tolerating BB therapy. (4) Malnutrition SNOMED Code(s): 17925848 Code(s): E46 - UNSPECIFIED PROTEIN-CALORIE MALNUTRITION Status: Acute Current Visit: Yes Qualifiers: Malnutrition type: unspecified type Qualified Code(s): E46 - Unspecified protein-calorie malnutrition Annotation/Comment:: Patient clearly is not taking adequate nutrition as an outpatient. Has been resistant to interventions to improve her nutritional status. (5) Acute on chronic pancreatitis SNOMED Code(s): 181488903 Code(s): K85.90 - ACUTE PANCREATITIS WITHOUT NECROSIS OR INFECTION, UNSP; K86.1 - OTHER CHRONIC PANCREATITIS Status: Acute Current Visit: No Annotation/Comment:: Significantly improved. Continue monitoring. ADAT. (6) CAD (coronary atherosclerotic disease) SNOMED Code(s): 146972394 Code(s): I25.10 - ATHSCL HEART DISEASE OF [place] CORONARY ARTERY W/O ANG PCTRS Status: Acute Current Visit: No Annotation/Comment:: Continue BB. Patient has previously been prescribed aspirin, beta ike, CHRISTY inhibitor. Has been inconsistently compliant with medications. Testing done in February 2017 showed demand ischemia with normal echo with ejection fraction of 60% and a mildly abnormal Jenna scan. No left heart catheterization was recommended by cardiology. (7) Hypokalemia SNOMED Code(s): 29338081 Code(s): E87.6 - HYPOKALEMIA Status: Acute Current Visit: No Annotation /Comment:: Replacement PO to show patient will be able to maintain levels at home. (8) Hypomagnesemia SNOMED Code(s): 616405163 Code(s): E83.42 - HYPOMAGNESEMIA Status: Acute Current Visit: No Annotation/Comment:: Replace by mouth. (9) Alcohol abuse SNOMED Code(s): 34142027 Code(s): F10.10 - ALCOHOL ABUSE, UNCOMPLICATED Status: Acute Current Visit: No Annotation/Comment:: Patient has been not amenable to treatment or interventions. Again offered assistance and declined. (10) QT prolongation SNOMED Code(s): 239837771 Code(s): R94.31 - ABNORMAL ELECTROCARDIOGRAM [ECG] [EKG] Status: Acute Current Visit: No Annotation/Comment:: Baseline 500 previous hospitalization without QT prolongation meds. Continue BB therapy and avoid QT prolongation meds. (11) Hypophosphatemia SNOMED Code(s): 0594411 Code(s): E83.39 - OTHER DISORDERS OF PHOSPHORUS METABOLISM Status: Acute Current Visit: Yes Annotation/Comment:: continue PO replacement. Discussed with patient that continued drinking will continue to cazares minerals from her body and she needs to take supplements regularly or she will just end up back in here, or at home. (12) DVT prophylaxis SNOMED Code(s): 516553777, 186075988 Code(s): BPO1487 - Status: Acute Current Visit: Yes Annotation/Comment :: We will hold Lovenox for low platelets and hematemesis on admission. Hemoglobin has been stable. SCDs. - Problem List Review Problem List Initiated/Reviewed/Updated: Yes - My Orders Last 24 Hours: My Active Orders 12/13/17 08:19 Convert IV to Saline Lock [OM.PC] Stat 12/13/17 09:00 NaPh,Mb-Db/K Ph,MB-DB [Phos-NaK Powder] 1 each PO QID 12/13/17 18:00 Ampicillin/Sulbactam Na [Unasyn] 3 gm Sodium Chloride 0.9% [Normal Saline] 100 ml IV Q6H 12/15/17 05:11 BASIC METABOLIC PANEL,BMP [CHEM] AM MAGNESIUM [CHEM] AM PHOSPHORUS [CHEM] AM - Plan Plan:: Anticipate discharge tomorrow.
[2017-12-14] MEDS: Sucralfate 1 GM Tab PO SCH ×4 (09:16→21:00)
[2017-12-14] MEDS: Metoprolol Tartrate 25 MG Tab PO SCH ×2 (09:16→21:00)
[2017-12-14] MEDS: Potassium Phosphate,Mb-Db/Sodium Phosphate,Mb-Db Packet PO SCH ×4 (09:17→21:00)
[2017-12-14] MEDS: Multivitamin Tab PO SCH (09:17)
[2017-12-14] MEDS: Magnesium Oxide 400 MG Tab PO SCH ×2 (09:17→21:00)
[2017-12-14] MEDS: Thiamine 100 MG Tab PO SCH (09:17)
[2017-12-14] MEDS: Potassium Chloride 20 MEQ Packet PO SCH ×4 (09:17→21:00)
[2017-12-14] MEDS: Lidocaine 5% 700 MG Patch TOP SCH (09:27)
[2017-12-14] MEDS: Sodium Chloride 0.9% 10 ML Syringe FLUSH PRN (11:57)
[2017-12-15] MEDS: Ampicillin/Sulbactam Na 3 GM in Sodium Chloride 0.9% 100 ML IV SCH ×3 (00:38→11:27)
[2017-12-15] MEDS: Sodium Chloride 0.9% 10 ML Syringe FLUSH PRN ×2 (01:53→07:21)
[2017-12-15] MEDS: Sucralfate 1 GM Tab PO SCH ×2 (07:25→11:26)
[2017-12-15] MEDS: Acetaminophen 325 MG Tab PO PRN ×2 (07:31→13:40)
--- NOTE | 2017-12-15 08:39 | PCM.DCSUM1 ---
Discharge Summary - Hospital Course Free Text/Narrative:: Date of admission: 12/11/17 Date of discharge: 12/15/17 Admission diagnosis: Hypovolemia with electrolyte abnormalities secondary to acute on chronic pancreatitis. Discharge diagnosis: Same Consults: None Procedures: Chest x-ray done on 12/13/17 revealed bilateral perihilar infiltrates consistent with aspiration pneumonia. History of present illness: Patient is a chronic alcoholic 52-year-old female with chronic alcoholism and malnutrition, chronic pancreatitis, inability to walk likely due to weakness, malnutrition and lack of activity presented the in the early hours of the day of admission with nausea, vomiting, and multiple electrolyte abnormalities. She has a history of multiple admissions with the underlying etiology being her alcoholism and malnutrition, but has not been successful at abstinence or willing to enter any kind of treatment program. When she presented she was quite hypoxic and tachypneic. No etiology was found for this. Hospital course: Patient's hospital course was complicated by refusals to take oral medications even once the patient was no longer vomiting. She did have an increased troponin which was likely secondary to demand ischemia due to severe tachycardia which was controlled with IV beta ike and ultimately starting her oral beta ike. Hypokalemia, hypomagnesemia, and hypophosphatemia were slowly treated with patient frequently refusing some oral supplements because she did not want to take them. She had a cough throughout her hospitalization which gradually grew worse and ultimately chest x-ray showed an aspiration pneumonia. The patient responded well to Unasyn and cough was completely resolved at discharge. I suspect that her initial presentation of hypoxia and tachypnea were related to aspiration chemical pneumonitis. See below for condition at discharge. The patient will be discharged home. Stressed the importance of alcohol cessation, offered resources which the patient declined, stressed importance of taking oral supplements and instructed patient on multiple ways she could do this that would be more palatable than taking pills. Patient will take another 5 days of oral Augmentin to complete treatment course for aspiration pneumonia. Follow-up later this week in the clinic with primary care. - Discharge Data Discharge Date: 12/15/17 Discharge Disposition: Home, Self-Care 01 Condition: Good - Discharge Diagnosis/Problem(s) (1) Aspiration pneumonia SNOMED Code(s): 342045440 ICD Code: J69.0 - PNEUMONITIS DUE TO INHALATION OF FOOD AND VOMIT Status: Acute Current Visit: Yes Problem Details: Discharge on oral augmentin, liquid per patient request. (2) Hypovolemia associated with vomiting SNOMED Code(s): 58676835, 850435626 ICD Code: E86.1 - HYPOVOLEMIA Status: Acute Current Visit: No Problem Details: Resolved. Tolerating diet. (3) Hypotension SNOMED Code(s): 52345475 ICD Code: I95.9 - HYPOTENSION, UNSPECIFIED Status: Acute Current Visit: Yes Problem Details: Now resolved. Tolerating BB therapy. Qualifiers: Hypotension type: unspecified hypotension type Qualified Code(s): I95.9 - Hypotension, unspecified (4) Malnutrition SNOMED Code(s): 03109935 ICD Code: E46 - UNSPECIFIED PROTEIN-CALORIE MALNUTRITION Status: Acute Current Visit: Yes Problem Details: Patient clearly is not taking adequate nutrition as an outpatient. Has been resistant to interventions to improve her nutritional status. Discussed at length with patient. Qualifiers: Malnutrition type: unspecified type Qualified Code(s): E46 - Unspecified protein-calorie malnutrition (5) Acute on chronic pancreatitis SNOMED Code(s): 511692448 ICD Code: K85.90 - ACUTE PANCREATITIS WITHOUT NECROSIS OR INFECTION, UNSP; K86.1 - OTHER CHRONIC PANCREATITIS Status: Acute Current Visit: No Problem Details: Significantly improved. Continue monitoring. ADAT. (6) CAD (coronary atherosclerotic disease) SNOMED Code(s): 142787964 ICD Code: I25.10 - ATHSCL HEART DISEASE OF [place] CORONARY ARTERY W/O ANG PCTRS Status: Acute Current Visit: No Problem Details: Continue BB. Patient has previously been prescribed aspirin, beta ike, CHRISTY inhibitor. Has been inconsistently compliant with medications. Testing done in February 2017 showed demand ischemia with normal echo with ejection fraction of 60% and a mildly abnormal Jenna scan. No left heart catheterization was recommended by cardiology. (7) Hypokalemia SNOMED Code(s): 09812270 ICD Code: E87.6 - HYPOKALEMIA Status: Acute Current Visit: No Problem Details: Continue PO supplementation. Patient resistant to taking oral supplements. However, after extensive discussion about mixing in drinks, taking throughout day, etc, patient feels she will be successful at home. (8) Hypomagnesemia SNOMED Code(s): 017020870 ICD Code: E83.42 - HYPOMAGNESEMIA Status: Acute Current Visit: No Problem Details: Continue PO supplementation outpatient. May crush or dissolve in water. If she continues to drink, will continue to have deficit. (9) Alcohol abuse SNOMED Code(s): 45256997 ICD Code: F10.10 - ALCOHOL ABUSE, UNCOMPLICATED Status: Acute Current Visit: No Problem Details: Patient has been not amenable to treatment or interventions. Again offered assistance and declined. (10) QT prolongation SNOMED Code(s): 189038417 ICD Code: R94.31 - ABNORMAL ELECTROCARDIOGRAM [ECG] [EKG] Status: Acute Current Visit: No Problem Details: Baseline 500 previous hospitalization without QT prolongation meds. Continue BB therapy and avoid QT prolongation meds. (11) Hypophosphatemia SNOMED Code(s): 7243191 ICD Code: E83.39 - OTHER DISORDERS OF PHOSPHORUS METABOLISM Status: Acute Current Visit: Yes Problem Details: continue PO replacement. Discussed with patient that continued drinking will continue to cazares minerals from her body and she needs to take supplements regularly or she will just end up back in here, or at home. (12) DVT prophylaxis SNOMED Code(s): 391332694, 043635801 ICD Code: [id number] - Status: Acute Current Visit: Yes Problem Details: No Lovenox for low platelets and hematemesis on admission. Hemoglobin has been stable. SCDs. - Discharge Plan *PRESCRIPTION DRUG MONITORING PROGRAM REVIEWED*: Not Applicable *COPY OF PRESCRIPTION DRUG MONITORING REPORT IN PATIENT [id number]: Not Applicable Prescriptions/Med Rec: Acetaminophen [Tylenol] 650 mg PO Q4H PRN #100 tablet PRN Reason: Pain Amoxicillin/Clavulanate K [Augmentin 400-57 MG/5 ML] 400 mg PO BID 5 Days #120 ml Folic Acid 1 mg PO DAILY #30 tablet Lidocaine 5% [Lidoderm 5%] 1 patch TOP DAILY #7 patch Magnesium Oxide 400 mg PO BIDAC #60 tablet NaPh,Mb-Db/K Ph,MB-DB [Phos-NaK Powder] 1 each PO QID #120 packet Potassium Chloride [Klor-Con] 20 meq PO QID 1 Days #100 packet Sucralfate [Carafate] 1 gm PO QIDACANDBED #120 tablet Home Medications: Home Meds Nitroglycerin [Nitrostat] 0.4 mg SL ASDIRECTED PRN 04/24/17 [History] atorvaSTATin [Lipitor] 20 mg PO BEDTIME 04/24/17 [History] hydrOXYzine pamoate [Hydroxyzine Pamoate] 25 mg PO TID PRN 04/24/17 [History] Promethazine [Phenergan] 25 mg PO Q6H PRN #20 tablet 04/25/17 [Rx] Metoprolol Tartrate [Lopressor] 12.5 mg PO Q12H tablet 05/26/17 [Rx] Multivitamins [Tab-A-Shelby] 1 tab PO DAILY tablet 05/26/17 [Rx] Pantoprazole [ProTONIX] 40 mg PO DAILY@0600 tab.cr 05/26/17 [Rx] Thiamine [Vitamin B-1] 100 mg PO DAILY #30 tablet 05/26/17 [Rx] Famotidine [Pepcid] 20 mg PO BID #20 tab 09/13/17 [Rx] Lidocaine 5% [Lidoderm 5%] 1 patch TOP DAILY #7 patch 12/11/17 [Rx] Acetaminophen [Tylenol] 650 mg PO Q4H PRN #100 tablet 12/15/17 [Rx] Amoxicillin/Clavulanate K [Augmentin 400-57 MG/5 ML] 400 mg PO BID 5 Days #120 ml 12/15/17 [Rx] Folic Acid 1 mg PO DAILY #30 tablet 12/15/17 [Rx] Magnesium Oxide 400 mg PO BIDAC #60 tablet 12/15/17 [Rx] NaPh,Mb-Db/K Ph,MB-DB [Phos-NaK Powder] 1 each PO QID #120 packet 12/15/17 [Rx] Potassium Chloride [Klor-Con] 20 meq PO QID 1 Days #100 packet 12/15/17 [Rx] Sucralfate [Carafate] 1 gm PO QIDACANDBED #120 tablet 12/15/17 [Rx] Forms: ED Department Discharge Referrals: Rocco Gonsales MD [Primary Care Provider] - - General Info Date of Service: 12/15/17 Subjective Update: The time of discharge, patient says she felt well and ready to go home. Denied chest pain, shortness of breath, nausea or vomiting, abdominal pain was back to baseline. - Patient Data Vitals - Most Recent: Last Vital Signs Temp 37.0 C 12/15/17 00:00 Pulse 105 H 12/15/17 00:00 Resp 20 12/15/17 00:00 BP 97/61 12/15/17 00:00 Pulse Ox 94 L 12/15/17 00:00 Weight - Most Recent: 56.518 kg I&O - Last 24 hours: Intake & Output 12/14/17 12/15/17 12/15/17 22:59 06:59 14:59 Intake Total 97 98 Output Total 500 Balance 97 -402 Lab Results - Last 24 hrs: Laboratory Results - last 24 hr 12/15/17 Range/Units 06:40 Sodium 143 (135-145) mmol/L Potassium 3.1 L (3.5-5.3) mmol/L Chloride 104 (100-110) mmol/L Carbon Dioxide 29 (21-32) mmol/L BUN 3 L (7-18) mg/dL Creatinine 0.5 L (0.55-1.02) mg/dL Est Cr Clr Drug Dosing 118.77 mL/min Estimated GFR (MDRD) > 60 (>60) BUN/Creatinine Ratio 6.0 L (9-20) Glucose 99 (80-116) mg/dL Calcium 8.9 (8.6-10.2) mg/dL Phosphorus 0.9 L* (2.6-4.6) mg/dL Magnesium 1.4 L (1.8-2.5) mg/dL Med Orders - Current: Current Medications Acetaminophen (Tylenol) 650 mg PO Q4H PRN PRN Reason: Pain Last Admin: 12/15/17 07:31 Dose: 650 mg Ampicillin Sodium/Sulbactam (Sodium 3 gm/ Sodium Chloride) 100 mls @ 100 mls/ hr IV Q6H ERICH Last Admin: 12/15/17 06:10 Dose: 100 mls/hr Levalbuterol HCl (Xopenex) 1.25 mg NEB Q4H PRN PRN Reason: Wheezing Last Admin: 12/11/17 15:10 Dose: 1.25 mg Lidocaine (Lidoderm 5%) 700 mg TOP DAILY ERICH Last Admin: 12/14/17 09:27 Dose: 700 mg Lorazepam (Ativan) 0.5 mg IVPUSH Q6H PRN PRN Reason: Anxiety Last Admin: 12/14/17 01:05 Dose: 0.5 mg Magnesium Oxide (Magnesium Oxide) 400 mg PO BID [facility] Last Admin: 12/14/17 21:00 Dose: Not Given Metoprolol Tartrate (Lopressor) 12.5 mg PO Q12H [facility] Last Admin: 12/14/17 21:00 Dose: Not Given Miscellaneous Information (Remove Patch) 1 ea TRDERM BEDTIME [facility] Last Admin: 12/14/17 21:00 Dose: 1 ea Multivitamins/Minerals/Vitamin C (Tab-A-Shelby) 1 tab PO DAILY [facility] Last Admin: 12/14/17 09:17 Dose: 1 tab Potassium Chloride (Klor-Con) 40 meq PO QID [facility] Last Admin: 12/14/17 21:00 Dose: Not Given Potassium Phos/Sodium Phos (Phos-Nak Powder) 1 each PO QID [facility] Last Admin: 12/14/17 21:00 Dose: Not Given Promethazine HCl (Phenergan) 25 mg PO Q6H PRN PRN Reason: nausea, able to take PO Sodium Chloride (Saline Flush) 10 ml FLUSH ASDIRECTED PRN PRN Reason: IV Use Last Admin: 12/15/17 07:21 Dose: 10 ml Sucralfate (Carafate) 1 gm PO QIDACANDBED [facility] Last Admin: 12/15/17 07:25 Dose: Not Given Thiamine HCl (Vitamin B-1) 100 mg PO DAILY [facility] Last Admin: 12/14/17 09:17 Dose: 100 mg Discontinued Medications Atorvastatin Calcium (Lipitor) 20 mg PO BEDTIME [facility] Bisacodyl (Dulcolax) 5 mg PO DAILY PRN PRN Reason: Constipation Budesonide (Pulmicort) 0.5 mg NEB ONETIME ONE Stop: 12/11/17 08:16 Last Admin: 12/11/17 09:19 Dose: 0.5 mg Famotidine (Pepcid) 20 mg PO BID [facility] Last Admin: 12/11/17 08:58 Dose: Not Given Folic Acid (Folic Acid) 1 mg PO DAILY [facility] Last Admin: 12/11/17 08:57 Dose: Not Given Hydroxyzine HCl (Atarax) 25 mg PO TID PRN PRN Reason: ANXIETY Sodium Chloride (Normal Saline) 1,000 mls @ 999 mls/hr IV .BOLUS ONE Stop: 12/11/17 01:41 Last Admin: 12/11/17 01:15 Dose: 999 mls/hr Multivitamins/Minerals 10 ml/Thiamine HCl 200 mg/ Chromium/Copper/Manganese/ Seleni/Zn 1 ml/ Dextrose/Lactated Ringer's 1,013 mls @ 999 mls/hr IV ASDIRECTED [facility] Multivitamins/Minerals 10 ml/Thiamine HCl 200 mg/ Dextrose/Lactated Ringer's 1, 012 mls @ 998.137 mls/hr [facility] Last Admin: 12/11/17 03:16 Dose: 998.137 mls/hr Multivitamins/Minerals 10 ml/Thiamine HCl 100 mg/ Folic Acid 1 mg/ Magnesium Sulfate 3 gm/ Sodium Chloride 1,017.2 mls @ 500 mls/hr IV NOW STA Stop: 12/11/17 04:42 Last Admin: 12/11/17 08:11 Dose: Not Given Dextrose/Lactated Ringer's (Dextrose 5%-Lactated Ringers) 1,000 mls @ 150 mls/ [facility] Last Admin: 12/11/17 04:00 Dose: 150 mls/hr Potassium Chloride 20 meq/ (Premix) 100 mls @ 50 mls/hr IV Q6H [facility] Last Admin: 12/13/17 03:04 Dose: 50 mls/hr Sodium Chloride (Normal Saline) 1,000 mls @ 999 mls/hr [facility] Last Admin: 12/11/17 08:10 Dose: 999 mls/hr Magnesium Sulfate 4 gm/ Premix 50 mls @ 150 mls/hr IV ONETIME ONE Stop: 12/11/17 09:19 Last Admin: 12/11/17 09:06 Dose: 150 mls/hr Sodium Chloride (Normal Saline) 1,000 mls @ 200 mls/hr [facility] Last Admin: 12/12/17 04:53 Dose: 200 mls/hr Potassium Chloride/Sodium Chloride (Normal Saline With 20 Meq Kcl) 1,000 mls @ 100 mls/hr IV Q10H [facility] Last Admin: 12/13/17 06:25 Dose: 100 mls/hr Ketorolac Tromethamine (Toradol) 30 mg IVPUSH Q6H PRN PRN Reason: Pain Stop: 12/16/17 10:41 Last Admin: 12/12/17 19:35 Dose: 30 mg Lidocaine (Lidoderm 5%) 700 mg TOP Q24H [facility] Last Admin: 12/12/17 11:32 Dose: Not Given Lidocaine (Lidoderm 5%) 700 mg TOP Q24H [facility] Magnesium Oxide (Magnesium Oxide) 400 mg PO DAILY [facility] Last Admin: 12/11/17 08:58 Dose: Not Given Metoprolol Tartrate (Lopressor) Confirm Administered Dose 5 mg .ROUTE .STK-MED ONE Stop: 12/11/17 06:01 Last Admin: 12/11/17 06:10 Dose: Not Given Metoprolol Tartrate (Lopressor) 25 mg PO Q12H [facility] Last Admin: 12/11/17 08:13 Dose: Not Given Metoprolol Tartrate (Lopressor) 5 mg IVPUSH ONETIME ONE Stop: 12/11/17 05:31 Last Admin: 12/11/17 06:10 Dose: 5 mg Nitroglycerin (Nitro-Bid 2%) Confirm Administered Dose 1 gm .ROUTE .STK-MED ONE Stop: 12/11/17 06:03 Last Admin: 12/11/17 08:25 Dose: Not Given Nitroglycerin (Nitrostat) 0.4 mg SL ASDIRECTED PRN PRN Reason: Anxiety Nitroglycerin (Nitro-Bid 2%) 1 gm TOP ONETIME ONE Stop: 12/11/17 05:31 Last Admin: 12/11/17 08:14 Dose: 1 gm Ondansetron HCl (Zofran Odt) 4 mg PO Q6H PRN PRN Reason: nausea, able to take PO Potassium Chloride (Klor-Con M20) 20 meq PO BID [facility] Last Admin: 12/11/17 21:29 Dose: Not Given Potassium Phos/Sodium Phos (Phos-Nak Powder) 1 each PO BID [facility] Last Admin: 12/12/17 21:36 Dose: Not Given - Exam General: Reports: Alert, Oriented, Cooperative, No Acute Distress HEENT: Reports: Pupils Equal, Pupils Reactive Neck: Reports: Supple Lungs: Reports: Clear to Auscultation, Normal Respiratory Effort Cardiovascular: Reports: Regular Rate, Regular Rhythm, No Murmurs GI/Abdominal Exam: Normal Bowel Sounds, Soft, No Distention, Tender (slightly tender in the epigastrium.) Extremities: Normal Inspection, No Pedal Edema Psy/Mental Status: Reports: Alert
[2017-12-15] MEDS: Thiamine 100 MG Tab PO SCH (09:05)
[2017-12-15] MEDS: Potassium Phosphate,Mb-Db/Sodium Phosphate,Mb-Db Packet PO SCH ×2 (09:06→13:39)
[2017-12-15] MEDS: Multivitamin Tab PO SCH (09:06)
[2017-12-15] MEDS: Metoprolol Tartrate 25 MG Tab PO SCH (09:06)
[2017-12-15] MEDS: Magnesium Oxide 400 MG Tab PO SCH (09:06)
[2017-12-15] MEDS: Potassium Chloride 20 MEQ Packet PO SCH ×2 (09:07→13:39)
[2017-12-15] MEDS: Lidocaine 5% 700 MG Patch TOP SCH (09:07)
[2017-12-15 09:08] VITALS: BP 106/73
--- NOTE | 2017-12-15 13:00 | CR ---
INDICATION: Cough, vomiting, possible aspiration. CHEST: An AP upright view of the chest was obtained 12/13/2017 and compared with 12/10/2017 and 10/25/2016. Fairly prominent infiltration is noted in the lower lung field on the left, infrahilar and extending to the costophrenic angle - lung base. Some heavy consolidation may be present in that area especially. Pleuritis is suggested with blunting of the costophrenic angle on the left. Suprahilar infiltrate is also suggested. The possibility of aspiration certainly would be a consideration with this appearance. The right lung and pleural space, however, were unremarkable. Heart and mediastinum were unremarkable. Overlying EKG leads are noted. IMPRESSION: Pleural parenchymal changes in the upper middle through left lung base, compatible with pneumonia and pleuritis, possibly on the basis of aspiration. MTDD
== END 2017-12-15 14:00 | disposition home or self-care (01) | DRG 438 ==
LOC: FB.ED 22:55 → FB.MS 12-11 03:00 → FB.ICU 12-11 09:51 → FB.MS 12-12 12:00
PROVIDERS: ADMIT Emergency Medicine; ATTEND Family Medicine
DX: K85.20 Alcohol induced acute pancreatitis without necrosis or infection (principal); J69.0 Pneumonitis due to inhalation of food and vomit; E46 Unspecified protein-calorie malnutrition; Z68.1 Body mass index [BMI] 19.9 or less, adult; K86.0 Alcohol-induced chronic pancreatitis; E86.1 Hypovolemia; F10.20 Alcohol dependence, uncomplicated; E86.0 Dehydration; F10.10 Alcohol abuse, uncomplicated; F32.89 Other specified depressive episodes; Z74.09 Other reduced mobility; R53.81 Other malaise; E87.6 Hypokalemia; E83.42 Hypomagnesemia; R00.0 Tachycardia, unspecified; R73.9 Hyperglycemia, unspecified; I95.9 Hypotension, unspecified; Y90.0 Blood alcohol level of less than 20 mg/100 ml; R11.2 Nausea with vomiting, unspecified; R09.02 Hypoxemia; R06.82 Tachypnea, not elsewhere classified; E83.39 Other disorders of phosphorus metabolism; M54.9 Dorsalgia, unspecified; G89.29 Other chronic pain; I25.2 Old myocardial infarction; I25.10 Atherosclerotic heart disease of native coronary artery without angina pectoris; M21.372 Foot drop, left foot; M21.371 Foot drop, right foot; R94.31 Abnormal electrocardiogram [ECG] [EKG]; G62.9 Polyneuropathy, unspecified; R26.2 Difficulty in walking, not elsewhere classified; Z87.440 Personal history of urinary (tract) infections; K21.9 Gastro-esophageal reflux disease without esophagitis; H54.7 Unspecified visual loss; Z88.8 Allergy status to other drugs, medicaments and biological substances; X31.XXXS Exposure to excessive natural cold, sequela
CPT/HCPCS: 36415; 71045; 93005; 96360; 96361; 99285; J7030; 80048; 80053; 82140; 82150; 82271; 82550; 83036; 83605; 83735; 83880; 84100; 84484; 85025; 85379; 94640; A9270-GY; G0480; J0295; J1885; J2060; J3411; J3475; J3480; J3490; J7042; J7050; J7612-GY

== ENCOUNTER 2018-08-10 11:23 | Observation (INO) | payer MEDICAID ==
[2018-08-10] MEDS ORDERED: Ondansetron 4 MG/2 ML SDV IVPUSH ONE (12:19)
[2018-08-10] MEDS ORDERED: Pantoprazole 40 MG Vial IVPUSH ONE (12:19)
[2018-08-10] MEDS ORDERED: Thiamine 200 MG/2 ML MDV IM STA (12:28)
[2018-08-10] MEDS ORDERED: Sodium Chloride 0.9% 1,000 ML IV ONE (12:30)
--- NOTE | 2018-08-10 12:30 | EDM.PDOC ---
ED HPI GENERAL MEDICAL PROBLEM - General Chief Complaint: Gastrointestinal Problem Stated Complaint: VOMITTING Time Seen by Provider: 08/10/18 11:23 Source of Information: Reports: Patient, Family () History Limitations: Reports: Physical Impairment - History of Present Illness INITIAL COMMENTS - FREE TEXT/NARRATIVE: 53 y.o.w.f with a h/o chronic ETOH abuse, cachexia was brought to the ED by her because of N/V, unable to keep any food down. Pt had multiple admission into this ed for same in the past. No trauma. Pt is a poor historian, HPI was given by he . BP 138/99 Pulse 144 RR 20 Pulse ox 98% on RA Temp 36.8 Onset: Unknown/Unsure Onset Date: 08/08/18 Onset Time: 09:00 Duration: Day(s):, Week(s):, Chronic Location: Reports: Generalized Quality: Reports: Ache, Burning Severity: Moderate Improves with: Reports: Rest Worsens with: Reports: Movement Context: Reports: Other (ETOH abuse, chronic) Associated Symptoms: Reports: Loss of Appetite, Nausea/Vomiting abdomnial Pain Score (Numeric/FACES): 10 asleep Pain Score (Numeric/FACES): 0 - Related Data Allergies Allergy/AdvReac Type Severity Reaction Status Date / Time No Known Allergies Allergy Verified 08/10/18 11:51 Home Meds: Home Meds Nitroglycerin [Nitrostat] 0.4 mg SL ASDIRECTED PRN 04/24/17 [History] hydrOXYzine pamoate [Hydroxyzine Pamoate] 25 mg PO TID PRN 04/24/17 [History] Multivitamins [Tab-A-Shelby] 1 tab PO DAILY tablet 05/26/17 [Rx] Thiamine [Vitamin B-1] 100 mg PO DAILY #30 tablet 05/26/17 [Rx] Acetaminophen [Tylenol] 650 mg PO Q4H PRN #100 tablet 12/15/17 [Rx] Magnesium Oxide 400 mg PO BIDAC #60 tablet 12/15/17 [Rx] Potassium Chloride [Klor-Con] 20 meq PO QID 1 Days #100 packet 12/15/17 [Rx] Past Medical History HEENT History: Reports: Cataract, Impaired Vision Cardiovascular History: Reports: Angina, [place], Other (See Below) Other Cardiovascular History: Pt reports palpitations Respiratory History: Reports: SOB Gastrointestinal History: Reports: Cholelithiasis, Cirrhosis, Gastritis, GERD Genitourinary History: Reports: UTI, 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 Has bilat foot drop. - Infectious Disease History Infectious Disease History: Reports: Chicken Pox Other Infectious Disease History: Unknown. - Past Surgical History HEENT Surgical History: Reports: Cataract Surgery, Tonsillectomy GI Surgical History: Reports: Appendectomy Female Surgical History: Reports: Other (See Below) Other Female Surgeries/Procedures: ? d and Dermatological Surgical History: Reports: Skin Graft Social & Family History - Family History Family Medical History: Unobtainable - Tobacco Use Smoking Status *Q: Never Smoker - Caffeine Use Caffeine Use: Reports: None Other Caffeine Use: Unknown. Patient poor historian at this time. Caffeine Use Comment: Does not use caffeine regularly - Alcohol Use Days Per Week of Alcohol Use: 4 Number of Drinks Per Day: 3 Total Drinks Per Week: 12 - Recreational Drug Use Recreational Drug Use: No ED ROS GENERAL - Review of Systems Review Of Systems: See Below Constitutional: Reports: Weakness, Decreased Appetite, Weight Loss HEENT: Reports: No Symptoms Respiratory: Reports: No Symptoms Cardiovascular: Reports: No Symptoms Endocrine: Reports: No Symptoms GI/Abdominal: Reports: Abdominal Pain : Reports: No Symptoms Musculoskeletal: Reports: No Symptoms Skin: Reports: No Symptoms Neurological: Reports: No Symptoms Psychiatric: Reports: No Symptoms Hematologic/Lymphatic: Reports: No Symptoms Immunologic: Reports: No Symptoms ED EXAM, GI/ABD - Physical Exam Exam: See Below Exam Limited By: Physical Impairment General Appearance: Alert, Moderate Distress, Cachetic Eyes: Bilateral: Normal Appearance Ears: Normal External Exam, Normal Canal, Hearing Grossly Normal Nose: Normal Inspection, Normal Mucosa, No Blood Throat/Mouth: Normal Lips, Normal Voice, No Airway Compromise Head: Atraumatic, Normocephalic Neck: Normal Inspection, Supple, Non-Tender Respiratory/Chest: No Respiratory Distress, Lungs Clear Cardiovascular: Normal Peripheral Pulses GI/Abdominal Exam: Normal Bowel Sounds, No Organomegaly, Tender (epigastric) (Female) Exam: Deferred Rectal (Female) Exam: Deferred Back Exam: Normal Inspection, Full Range of Motion Extremities: Limited Range of Motion Neurological: Alert, Oriented, CN II-XII Intact, Normal Cognition, Abnormal Gait (unable to ambulate) Psychiatric: Normal Affect, Depressed Mood Skin Exam: Warm, Dry, Intact, Normal Color, No Rash Lymphatic: No Adenopathy Course - Vital Signs Text/Narrative:: 53 y.o.w.f with a h/o chronic ETOH abuse, cachexia was brought to the ED by her because of N/V, unable to keep any food down. Pt had multiple admission into this ed for same in the past. No trauma. Pt is a poor historian, HPI was given by he . BP 138/99 Pulse 144 RR 20 Pulse ox 98% on RA Temp 36.8 PE: Cachectic 53 years olfd f with ETOH gastritis Imaging: Not indicated Labs: WBC 8.6 HGB 16.4 Na 139 K 3.4 GFR 57 ETOH 0.03 Impression: malnutrition. Chronic ETOH abuse, ETOH gastritis Tx: Thiamin, NS, Zofran, Protonix, Oxycodone Reexam: Pt was stable in the ED 4.38 pm Consultation: Dr. Pratt: Accepted the pt for admission Plan: Admit to Obs Last Recorded V/S: Last Vital Signs Temp 36.7 C 08/12/18 08:00 Pulse 81 08/12/18 08:00 Resp 12 08/12/18 08:00 BP 114/74 08/12/18 08:00 Pulse Ox 100 08/12/18 08:00 - Orders/Labs/Meds Labs: Laboratory Tests 08/10/18 08/10/18 08/10/18 Range/Units 12:50 12:50 12:50 WBC 9.8 (4.5-12.0) X10-3/uL RBC 4.92 (3.23-5.20) x10(6)uL Hgb 16.4 H (11.5-15.5) g/dL Hct 48.3 D (30.0-51.3) % MCV 98.1 H (80-96) fL MCH 33.2 (27.7-33.6) pg MCHC 33.9 (32.2-35.4) g/dL RDW 11.4 L (11.5-15.5) % Plt Count 291 (125-369) X10(3)uL MPV 8.9 (7.4-10.4) fL Neut % (Auto) 81.0 (46-82) % Lymph % (Auto) 9.4 L (13-37) % [place] % (Auto) 8.6 (4-12) % Eos % (Auto) 0 L (1.0-5.0) % Baso % (Auto) 1 (0-2) % Neut # (Auto) 8.0 (1.6-8.3) # Lymph # (Auto) 0.9 (0.6-5.0) # [place] # (Auto) 0.8 (0.0-1.3) # Eos # (Auto) 0.0 (0.0-0.8) # Baso # (Auto) 0.1 (0.0-0.2) # Sodium 137 (135-145) mmol/L Potassium 3.4 L (3.5-5.3) mmol/L Chloride 91 L D (100-110) mmol/L Carbon Dioxide 13 L (21-32) mmol/L BUN 15 D (7-18) mg/dL Creatinine 1.1 H (0.55-1.02) mg/dL Est Cr Clr Drug Dosing TNP Estimated GFR (MDRD) 52 L (>60) BUN/Creatinine Ratio 13.6 (9-20) Glucose 248 H D (80-116) mg/dL Calcium 10.4 H (8.6-10.2) mg/dL Magnesium (1.8-2.5) mg/dL Ammonia (19-87) ug/dL Amylase 126 H (25-115) U/L Ethyl Alcohol < 0.03 (<0.03) % 08/10/18 08/10/18 Range/Units 12:50 12:50 WBC (4.5-12.0) X10-3/uL RBC (3.23-5.20) x10(6)uL Hgb (11.5-15.5) g/dL Hct (30.0-51.3) % MCV (80-96) fL MCH (27.7-33.6) pg MCHC (32.2-35.4) g/dL RDW (11.5-15.5) % Plt Count (125-369) X10(3)uL MPV (7.4-10.4) fL Neut % (Auto) (46-82) % Lymph % (Auto) (13-37) % [place] % (Auto) (4-12) % Eos % (Auto) (1.0-5.0) % Baso % (Auto) (0-2) % Neut # (Auto) (1.6-8.3) # Lymph # (Auto) (0.6-5.0) # [place] # (Auto) (0.0-1.3) # Eos # (Auto) (0.0-0.8) # Baso # (Auto) (0.0-0.2) # Sodium (135-145) mmol/L Potassium (3.5-5.3) mmol/L Chloride (100-110) mmol/L Carbon Dioxide (21-32) mmol/L BUN (7-18) mg/dL Creatinine (0.55-1.02) mg/dL Est Cr Clr Drug Dosing Estimated GFR (MDRD) (>60) BUN/Creatinine Ratio (9-20) Glucose (80-116) mg/dL Calcium (8.6-10.2) mg/dL Magnesium 2.0 (1.8-2.5) mg/dL Ammonia 142 H (19-87) ug/dL Amylase (25-115) U/L Ethyl Alcohol (<0.03) % Meds: Medications Discontinued Medications Generic Name Dose Route Start Last Admin Trade Name Freq PRN Reason Stop Dose Admin Acetaminophen 650 mg 08/12/18 11:30 08/12/18 11:22 Tylenol PO 08/12/18 11:31 650 mg ONETIME ONE Administration Sodium Chloride 1,000 mls @ 999 mls/hr 08/10/18 12:30 08/10/18 14:22 Normal Saline IV 08/10/18 13:30 999 mls/hr .BOLUS ONE Administration Sodium Chloride 1,000 mls @ 125 mls/hr 08/10/18 17:15 08/12/18 08:43 Normal Saline IV 125 mls/hr ASDIRECTED ERICH Administration Ketorolac Tromethamine 30 mg 08/11/18 02:43 08/11/18 03:03 Toradol IVPUSH 08/11/18 02:44 30 mg ONETIME ONE Administration Ketorolac Tromethamine 15 mg 08/12/18 00:47 08/12/18 01:05 Toradol IVPUSH 08/12/18 00:48 15 mg ONETIME ONE Administration Lorazepam 0.5 mg 08/11/18 10:58 Ativan IVPUSH Q4H PRN AGITATION ALCOHOL WITHDRAWAL Ondansetron HCl 8 mg 08/10/18 12:19 08/10/18 14:25 Zofran IVPUSH 08/10/18 12:20 8 mg ONETIME ONE Administration Ondansetron HCl 4 mg 08/10/18 18:57 08/11/18 03:03 Zofran IVPUSH 4 mg Q6H PRN Administration Nausea/Vomiting Oxycodone HCl 5 mg 08/10/18 21:00 08/10/18 20:32 Oxycontin PO 5 mg BEDTIME ERICH Administration Pantoprazole Sodium 40 mg 08/10/18 12:19 08/10/18 14:28 Protonix Iv IVPUSH 08/10/18 12:20 40 mg ONETIME ONE Administration Pantoprazole Sodium 40 mg 08/11/18 09:00 08/12/18 08:52 Protonix Iv IVPUSH 40 mg DAILY ERICH Administration Thiamine HCl 100 mg 08/10/18 12:28 08/10/18 14:25 Vitamin B-1 IM 08/10/18 12:29 100 mg ONETIME STA Administration Thiamine HCl 100 mg 08/11/18 09:00 08/12/18 09:00 Vitamin B-1 IM Not Given DAILY ERICH Departure - Departure Time of Disposition: 17:35 Disposition: Refer to Observation Condition: Fair (Malnutrition) Clinical Impression: Gastritis - Discharge Information
[2018-08-10] MEDS: Ondansetron 4 MG/2 ML SDV IVPUSH PRN (20:42)
[2018-08-10] MEDS ORDERED: oxyCODONE ER 10 MG TAB.ER PO SCH (21:00)
[2018-08-11] MEDS: Sodium Chloride 0.9% 1,000 ML IV SCH ×3 (00:18→17:04)
[2018-08-11] MEDS ORDERED: Ketorolac 30 MG/ML SDV IVPUSH ONE (02:43)
[2018-08-11] MEDS: Ondansetron 4 MG/2 ML SDV IVPUSH PRN (03:03)
--- NOTE | 2018-08-11 08:34 | CR ---
INDICATION: Abdominal pain,? pancreatitis. ABDOMEN TWO VIEW: Three images of the abdomen were obtained with supine and left lateral decubitus views. No evidence of free air or bowel obstruction was seen. Nasogastric tube present on previous study of 06/19/16 is not present at this time. The pattern of feces is nonspecific without evidence of free air or obstruction. No organomegaly or mass lesions are suggested. No nonvascular pathologic calcifications were identified. MTDD
[2018-08-11] MEDS: Pantoprazole 40 MG Vial IVPUSH SCH (09:22)
[2018-08-11] MEDS: Thiamine 200 MG/2 ML MDV IM SCH (09:31)
[2018-08-11] MEDS ORDERED: LORazepam 2 MG/ML SDV IVPUSH PRN (10:58)
[2018-08-12] MEDS ORDERED: Ketorolac 30 MG/ML SDV IVPUSH ONE (00:47)
[2018-08-12] MEDS: Sodium Chloride 0.9% 1,000 ML IV SCH ×2 (00:50→08:43)
--- NOTE | 2018-08-12 07:49 | HP ---
ADMISSION DATE: 08/10/2018 REASON FOR ADMISSION: Complicated nausea, vomiting, and diarrhea. HISTORY OF PRESENT ILLNESS: Carmen Rivera is a 53-year-old female, [place] resident, was seen at [facility] by Dr. Dixon. She presented with complicated nausea, vomiting; diarrhea preceding; decreased well- being; sense of reduced well-being. No bloody emesis. No bloody diarrhea. She has known cholelithiasis without surgical removal. Frequent visitor. Complicated history of alcohol issues and abuse. MEDICATIONS: On board: 1. Potassium 20 mEq p.o. q.i.d. for low potassium. 2. Hydroxyzine 25 t.i.d. p.r.n. anxiety. 3. Metoprolol 25 mg half tablet b.i.d. for blood pressure and heart rate control. 4. Carafate 1 g q.i.d. gastritis. 5. Lipitor 20 mg 1 p.o. b.i.d. for hyperlipidemia, not taking. 6. PRN nitroglycerin. 7. Vitamin B12. 8. Folic acid. 9. Thiamine. 10.Tramadol 50 t.i.d. 11.Protonix 40 one daily. 12.Multivitamin. ALLERGIES: To Zofran. PAST MEDICAL HISTORY: Significant for previous appendectomy, remote tonsillectomy removal, and bilateral cataract surgery. Chronic illnesses include cachexia, malnutrition, alcohol abuse, chronic anxiety, recurrent gastritis, and pancreatitis. SOCIAL HISTORY: Lives with her , second . Two children, older, daughter and a son. Never smoked. No chewing tobacco or alcohol of concern. FAMILY HISTORY: Mother recently, dad otherwise well. No early heart disease, diabetes mellitus, or inheritable cancers. REVIEW OF SYSTEMS: CONSTITUTIONAL: Feeling poorly. EYES: Sees well. EARS: Hears well. OROPHARYNX: Poor dentition. INTAKE: Poor. CHEST: No cough, wheeze, or congestion. CARDIOVASCULAR: Denies chest pain, palpitations, or syncope. GASTROINTESTINAL: Please see HPI. GENITOURINARY: Please see HPI. SKIN: No open sores or lesions. ENDOCRINE: No excessive thirst or urination. ALLERGIC: No chronic cough. PSYCHIATRIC: Unstable. LABORATORY STUDIES: CBC: White count 9,800, hemoglobin 16.4, and platelets 291,000. Electrolytes reveal potassium 3.4, carbon dioxide 13, creatinine 1.1, GFR 52, glucose 248, calcium 10.4, and amylase 126. Urinalysis clear. RADIOGRAPHS: Abdomen, plain film, revealed no complicating findings. ASSESSMENT: 1. Complicated nausea and vomiting. 2. Alcoholic gastritis. SECONDARY DIAGNOSIS: Please see above. PLAN: We will place, give IV fluids, good hydration, antiemetics, complementary care and well being. Alcohol withdrawal under consideration. Protonix, Zofran, thiamine, a single dose of oxycodone, IV Protonix. Expect a short-term stay. /[id number] TORY/MANOJ
--- NOTE | 2018-08-12 08:04 | PN ---
DATE SEEN: 08/11/2018 SUBJECTIVE: Carmen Rivera is a 53-year-old, female, admitted with abdominal pain, vomiting, diarrhea, and dehydration. Had a pretty good night. Voiding successfully. No obvious alcohol withdrawal present. Nausea is controlled systemically. OBJECTIVE: VITAL SIGNS: 36.9, 130/78, 95 is the mean blood pressure, 14 respirations, and 99. GENERAL: Appears better. A little less unsettled. Mouth and oropharynx reveal better hydration. NECK: Supple. CHEST: Clear in all lung root. HEART: No ectopy or murmur. ABDOMEN: Pretty benign. Lower abdominal surgical scar. Mild distention. Good bowel sounds. ASSESSMENT: 1. Complicated nausea and vomiting. 2. Alcohol withdrawal under consideration. PLAN: Thiamine on board, antiemetics on board, will be on observation for any agitation, alcohol withdrawal under consideration. /[id number] TORY/MANOJ
[2018-08-12] MEDS: Pantoprazole 40 MG Vial IVPUSH SCH (08:52)
[2018-08-12] MEDS: Thiamine 200 MG/2 ML MDV IM SCH (09:00)
[2018-08-12 09:32] VITALS: BP 114/74
[2018-08-12] MEDS ORDERED: Acetaminophen 325 MG Tab PO ONE (11:30)
--- NOTE | 2018-08-13 06:21 | DISCH ---
DISCHARGE DATE: 08/12/2018 DISCHARGE DIAGNOSES: 1. Complicated nausea, vomiting, and gastroenteritis. 2. Preexisting cachexia, complicated alcohol over use. HOSPITAL COURSE: Carmen Rivera is a 53-year-old female, admitted with complicated nausea, repetitive vomiting, diarrhea, decreased well-being, and a sense of reduced well-being. Does have known cholelithiasis without surgical removal. She was admitted. Antiemetics, nausea; fluids, hydration; anxiolytics, and alcohol withdrawal protocol in place. Ativan was available, but not required. Thiamine was given, routine through hospital stay. Vomiting ceased. advanced slowly to clear liquids and not anxious to eat more. PHYSICAL EXAMINATION: VITAL SIGNS: 36.7, 114/74, 87, 12, and 100%. GENERAL: Appears well. HEENT: Conjunctivae clear. Bright tympanic membranes. Clear nasal discharge. Mouth and oropharynx clear. Good hydration. NECK: Benign. CHEST: Clear in all lung root. HEART: On auscultation, no ectopy or murmur. BREASTS: Not examined. ABDOMEN: Benign. A little tender, but nothing problematic. Good bowel sounds. EXTREMITIES: Well perfused. ASSESSMENT: Complicated gastroenteritis, nausea, and vomiting. PLAN: Discharge home. Vistaril for nausea, avoidance of alcohol, long-term, short-term health issues. Follow up p.r.n. Discharge medications as noted. Followup visit p.r.n. Surgical procedures, none. Consultations, none. 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 /[id number] TORY/MANOJ
== END 2018-08-12 12:10 | disposition home or self-care (01) ==
LOC: FB.ED 11:23 → FB.MS 17:33
PROVIDERS: ADMIT Family Medicine; ATTEND Family Medicine
DX: K52.9 Noninfective gastroenteritis and colitis, unspecified (principal); K29.20 Alcoholic gastritis without bleeding; F10.10 Alcohol abuse, uncomplicated; R64 Cachexia; F41.9 Anxiety disorder, unspecified; I25.2 Old myocardial infarction; K80.20 Calculus of gallbladder without cholecystitis without obstruction; Z79.899 Other long term (current) drug therapy
CPT/HCPCS: 36415; 74019; 80048; 80305; 81001; 82140; 82150; 82962; 83735; 85025; 96361; 96372; 96374; 96375; 96376; 99285; A9270; C9113; G0378; G0480; J1885; J2405; J3411; J7030

== ENCOUNTER 2018-09-01 07:43 | Inpatient (IN) | payer MEDICAID ==
[2018-09-01] MEDS ORDERED: Sodium Chloride 0.9% 1,000 ML IV ONE ×2 (08:10→08:32)
[2018-09-01] MEDS ORDERED: Sodium Chloride 0.9% 10 ML Syringe FLUSH PRN (08:26)
[2018-09-01] MEDS ORDERED: Ondansetron 4 MG/2 ML SDV IVPUSH ONE (08:32)
[2018-09-01] MEDS ORDERED: Pantoprazole 40 MG Vial IVPUSH ONE (08:36)
--- NOTE | 2018-09-01 08:47 | EDM.PDOC ---
ED HPI GENERAL MEDICAL PROBLEM - General Chief Complaint: Abdominal Pain Stated Complaint: ABDOMINAL PAIN, POSSIBLE DEHYDRATION Time Seen by Provider: 09/01/18 08:14 Source of Information: Reports: Patient, Family (Patient's ) History Limitations: Reports: No Limitations - History of Present Illness INITIAL COMMENTS - FREE TEXT/NARRATIVE: 53-year-old female with long-standing history of alcoholism who presents via private vehicle with her for abdominal pain and vomiting. Apparently she began to have abdominal pain on Friday night with some vomiting and vomited all through the day yesterday (the states vomiting 30-40 times) and has continued to vomit today being unable to keep any liquids down. She tries to drink water but only throws it back up. She has had vomiting of about 10 times today. The emesis is been nonbilious. There is been no blood in her emesis. She has had no diarrhea. She reports pain in her central abdomen that waxes and wanes. It is a 10/10 and is worse and then after vomiting she reports the pain is anywhere from a 2-4/10. She also reports a pressure feeling in her central chest that does not radiate and seems to also be somewhat associated with her vomiting. She rates that as a 4/10. She has had multiple ED visits related to vomiting, dehydration and abdominal pain. She has had no fevers or chills. She has had urine output. There has been no dysuria or hematuria. She has no back pain. She feels somewhat weak and dizzy. The reports that her last drink of alcohol was Friday night. There are no other associated signs or symptoms. There are no other modifying factors. Onset: Other (08/30/2018, Friday evening) Duration: Getting Worse Location: Reports: Chest, Abdomen Quality: Reports: Pressure, Sharp, Other (Cramping) Severity: Moderate (to severe) Improves with: Reports: Other (After vomiting) Worsens with: Reports: Eating (Or drinking), Other (Palpation) Context: Reports: Other (As above) Associated Symptoms: Reports: Chest Pain, Nausea/Vomiting, Weakness Treatments FATBACK TRIMMER: Reports: Other (see below) (Nothing) Upper abdominal region Pain Score (Numeric/FACES): 5 - Related Data Allergies Allergy/AdvReac Type Severity Reaction Status Date / Time No Known Allergies Allergy Verified 09/01/18 08:15 Home Meds: Home Meds Nitroglycerin [Nitrostat] 0.4 mg SL ASDIRECTED PRN 04/24/17 [History] hydrOXYzine pamoate [Hydroxyzine Pamoate] 25 mg PO TID PRN 04/24/17 [History] Multivitamins [Tab-A-[place]] 1 tab PO DAILY tablet 05/26/17 [Rx] Thiamine [Vitamin B-1] 100 mg PO DAILY #30 tablet 05/26/17 [Rx] Acetaminophen [Tylenol] 650 mg PO Q4H PRN #100 tablet 12/15/17 [Rx] Magnesium Oxide 400 mg PO BIDAC #60 tablet 12/15/17 [Rx] Potassium Chloride [Klor-Con] 20 meq PO QID 1 Days #100 packet 12/15/17 [Rx] HYDROmorphone [Dilaudid] 2 mg IVPUSH Q3H PRN sdv 09/01/18 [Rx] LORazepam [Ativan] 1 mg IVPUSH Q4H PRN vial 09/01/18 [Rx] NS + KCl 20mEq/L [Normal Saline with 20 mEq KCl] 1 ml IV Q4H bag 09/01/18 [Rx] Ondansetron [Zofran] 4 mg IVPUSH Q4H PRN vial 09/01/18 [Rx] Sodium Chloride 0.9% [Saline Flush] 10 ml FLUSH ASDIRECTED PRN syringe [Rx] Past Medical History HEENT History: Reports: Cataract, Impaired Vision Cardiovascular History: Reports: Angina, Arrhythmia (Palpitations), NM Gastrointestinal History: Reports: Cholelithiasis, Cirrhosis, Gastritis, GERD Genitourinary History: Reports: UTI, Recurrent Neurological History: Reports: Neuropathy, Peripheral Psychiatric History: Reports: Addiction, Anxiety, Panic Attack, Psych Hospitalization(s) Other Psychiatric History: Hx ETOH abuse Hematologic History: Reports: Anemia Dermatologic History: Reports: Other (See Below) Other Dermatologic History: severe goel bite to hands bilat & feet. Has bilat foot drop. - Infectious Disease History Infectious Disease History: Reports: Chicken Pox Other Infectious Disease History: Unknown. - Past Surgical History HEENT Surgical History: Reports: Cataract Surgery, Tonsillectomy GI Surgical History: Reports: Appendectomy Dermatological Surgical History: Reports: Skin Graft Social & Family History - Family History Family Medical History: Unobtainable - Tobacco Use Smoking Status *Q: Unknown Ever Smoked (Nonsmoker) - Caffeine Use Caffeine Use: Reports: None Other Caffeine Use: Unknown. Patient poor historian at this time. Caffeine Use Comment: Does not use caffeine regularly - Alcohol Use Alcohol Use History: Yes Alcohol Use Frequency: Daily (Heavy EtOH use) - Living Situation & Occupation Living situation: Reports: (Here with her ) ED ROS GENERAL - Review of Systems Review Of Systems: See Below Constitutional: Reports: Weakness HEENT: Reports: Other (Dry mouth) Respiratory: Reports: Shortness of Breath Cardiovascular: Reports: Chest Pain (As described above), Lightheadedness GI/Abdominal: Reports: Abdominal Pain, Nausea, Vomiting : Reports: No Symptoms Musculoskeletal: Reports: No Symptoms Skin: Reports: No Symptoms Neurological: Reports: Dizziness Psychiatric: Reports: Anxiety Hematologic/Lymphatic: Reports: No Symptoms Immunologic: Reports: No Symptoms ED EXAM, GI/ABD - Physical Exam Exam: See Below Exam Limited By: No Limitations General Appearance: Alert, Moderate Distress, Thin Eyes: Bilateral: Normal Appearance, EOMI Ears: Normal External Exam Nose: Normal Inspection, Normal Mucosa, No Blood Throat/Mouth: Normal Voice, No Airway Compromise, Other (Dry mucous membranes with an odor of ketones on her breath.) Head: Atraumatic, Normocephalic Neck: Normal Inspection, Supple, Non-Tender, Full Range of Motion Respiratory/Chest: No Respiratory Distress, Lungs Clear, Normal Breath Sounds, No Accessory Muscle Use, Chest Non-Tender Cardiovascular: No Edema, No Gallop, No JVD, Tachycardia GI/Abdominal Exam: Soft, Tender (Diffusely), Abnormal Bowel Sounds (Diminished) . No: No Mass, Guarding, Rigid, Rebound Back Exam: Normal Inspection, Full Range of Motion Extremities: Normal Inspection, Normal Range of Motion, Non-Tender, Normal Capillary Refill, No Pedal Edema Neurological: Alert, Oriented, CN II-XII Intact, Other (Some foot drop bilaterally but she can dorsiflex her feet at least partially bilaterally) Skin Exam: Warm, Dry, Intact, Normal Color, No Rash EKG INTERPRETATION EKG Date: 09/01/18 Time: 07:55 Rhythm: Other (Sinus tachycardia) Rate (Beats/Min): 136 [place]: Normal P-Wave: Present QRS: Normal ST-T: Other (Nonspecific ST-T changes) QT: Prolonged KS/PQ Interval: Borderline prolonged KS Comparison: No Change (No real change from EKG performed on 12/11/2017 area) Course - Vital Signs Last Recorded V/S: Last Vital Signs Temp 36.4 C 09/01/18 10:15 Pulse 131 H 09/01/18 18:00 Resp 14 09/01/18 18:00 BP 121/76 09/01/18 18:00 Pulse Ox 96 09/01/18 18:00 - Orders/Labs/Meds Labs: Laboratory Tests 09/01/18 09/01/18 09/01/18 Range/Units 08:05 08:05 08:05 WBC 10.4 (4.5-12.0) X10-3/uL RBC 4.88 (3.23-5.20) x10(6)uL Hgb 16.0 H (11.5-15.5) g/dL Hct 47.8 (30.0-51.3) % MCV 98.1 H (80-96) fL MCH 32.8 (27.7-33.6) pg MCHC 33.4 (32.2-35.4) g/dL RDW 12.7 (11.5-15.5) % Plt Count 245 (125-369) X10(3)uL MPV 8.3 (7.4-10.4) fL Neut % (Auto) 83.2 H (46-82) % Lymph % (Auto) 11.8 L (13-37) % [place] % (Auto) 4.2 (4-12) % Eos % (Auto) 0 L (1.0-5.0) % Baso % (Auto) 1 (0-2) % Neut # (Auto) 8.7 H (1.6-8.3) # Lymph # (Auto) 1.2 (0.6-5.0) # Churchill # (Auto) 0.4 (0.0-1.3) # Eos # (Auto) 0.0 (0.0-0.8) # Baso # (Auto) 0.1 (0.0-0.2) # APTT (24.4-33.2) SECONDS POC VBG pH (7.31-7.41) POC VBG pCO2 (41-51) mmHG POC VBG HCO3 (23-28) mmol/L POC VBG Total CO2 (24-29) mmol/L POC VBG Base Excess (-2-3) mmol/L Sodium 142 (135-145) mmol/L Potassium 4.3 (3.5-5.3) mmol/L Chloride 96 L D (100-110) mmol/L Carbon Dioxide 14 L (21-32) mmol/L BUN 6 L (7-18) mg/dL Creatinine 0.9 (0.55-1.02) mg/dL Est Cr Clr Drug Dosing 65.45 mL/min Estimated GFR (MDRD) > 60 (>60) BUN/Creatinine Ratio 6.7 L (9-20) Glucose 118 H D (80-116) mg/dL Calcium 9.2 (8.6-10.2) mg/dL Magnesium 1.5 L (1.8-2.5) mg/dL Total Bilirubin 0.8 (0.1-1.3) mg/dL AST 143 H D (5-25) IU/L ALT 102 H D (12-36) U/L Alkaline Phosphatase 199 H (56-112) IU/L Troponin I < 0.017 L (<0.017-0.056) ng/mL Total Protein 9.2 H (6.0-8.0) g/dL Albumin 4.6 (3.5-5.2) g/dL Globulin 4.6 g/dL Albumin/Globulin Ratio 1.0 Amylase 54 (25-115) U/L Ethyl Alcohol 0.29 H* (<0.03) % 09/01/18 09/01/18 09/01/18 Range/Units 08:05 08:50 09:02 WBC (4.5-12.0) X10-3/uL RBC (3.23-5.20) x10(6)uL Hgb (11.5-15.5) g/dL Hct (30.0-51.3) % MCV (80-96) fL MCH (27.7-33.6) pg MCHC (32.2-35.4) g/dL RDW (11.5-15.5) % Plt Count (125-369) X10(3)uL MPV (7.4-10.4) fL Neut % (Auto) (46-82) % Lymph % (Auto) (13-37) % [place] % (Auto) (4-12) % Eos % (Auto) (1.0-5.0) % Baso % (Auto) (0-2) % Neut # (Auto) (1.6-8.3) # Lymph # (Auto) (0.6-5.0) # Churchill # (Auto) (0.0-1.3) # Eos # (Auto) (0.0-0.8) # Baso # (Auto) (0.0-0.2) # APTT 23.0 L (24.4-33.2) SECONDS POC VBG pH 7.12 L Cancelled (7.31-7.41) POC VBG pCO2 33.0 L Cancelled (41-51) mmHG POC VBG HCO3 10.7 L Cancelled (23-28) mmol/L POC VBG Total CO2 12.0 L Cancelled (24-29) mmol/L POC VBG Base Excess -19 L Cancelled (-2-3) mmol/L Sodium (135-145) mmol/L Potassium (3.5-5.3) mmol/L Chloride (100-110) mmol/L Carbon Dioxide (21-32) mmol/L BUN (7-18) mg/dL Creatinine (0.55-1.02) mg/dL Est Cr Clr Drug Dosing mL/min Estimated GFR (MDRD) (>60) BUN/Creatinine Ratio (9-20) Glucose (80-116) mg/dL Calcium (8.6-10.2) mg/dL Magnesium (1.8-2.5) mg/dL Total Bilirubin (0.1-1.3) mg/dL AST (5-25) IU/L ALT (12-36) U/L Alkaline Phosphatase (56-112) IU/L Troponin I (<0.017-0.056) ng/mL Total Protein (6.0-8.0) g/dL Albumin (3.5-5.2) g/dL Globulin g/dL Albumin/Globulin Ratio Amylase (25-115) U/L Ethyl Alcohol (<0.03) % Meds: Medications Discontinued Medications Generic Name Dose Route Start Last Admin Trade Name Freq PRN Reason Stop Dose Admin Fentanyl 50 mcg 09/01/18 09:47 09/01/18 09:56 Sublimaze IVPUSH 09/01/18 09:48 50 mcg ONETIME ONE Administration Hydromorphone HCl 2 mg 09/01/18 13:53 09/01/18 14:22 Dilaudid IVPUSH 2 mg Q3H PRN Administration Abdominal Pain Sodium Chloride 1,000 mls @ 999 mls/hr 09/01/18 08:10 09/01/18 08:10 Normal Saline IV 09/01/18 09:10 999 mls/hr .BOLUS ONE Administration Sodium Chloride 1,000 mls @ 999 mls/hr 09/01/18 08:32 09/01/18 09:10 Normal Saline IV 09/01/18 09:32 999 mls/hr .BOLUS ONE Administration Magnesium Sulfate 2 gm/ Premix 50 mls @ 50 mls/hr 09/01/18 09:30 09/01/18 10: 01 IV 09/01/18 10:29 50 mls/hr ONETIME ONE Administration Promethazine HCl 25 mg/ Sodium 51 mls @ 200 mls/hr 09/01/18 09:30 09/01/18 09 :37 Chloride IV 09/01/18 09:45 200 mls/hr ONETIME ONE Administration Potassium Chloride/Sodium Chloride 1,000 mls @ 250 mls/hr 09/01/18 11:00 Normal Saline With 20 Meq Kcl IV Q4H ERICH Multivitamins/Minerals 10 ml/ 1,013.2 mls @ 500 mls/hr 09/01/18 11:10 11:32 Thiamine HCl 100 mg/ Folic IV 09/01/18 13:11 500 mls/hr Acid 1 mg/ Magnesium Sulfate 1 ONETIME ONE Administration gm/ Sodium Chloride Potassium Chloride/Sodium Chloride 1,000 mls @ 250 mls/hr 09/01/18 13:30 17:54 Normal Saline With 20 Meq Kcl IV 250 mls/hr Q4H ERICH Administration Lorazepam 1 mg 09/01/18 10:51 09/01/18 19:04 Ativan IVPUSH 1 mg Q4H PRN Administration Withdrawal Symptoms Ondansetron HCl 4 mg 09/01/18 08:32 09/01/18 08:42 Zofran IVPUSH 09/01/18 08:33 4 mg ONETIME ONE Administration Ondansetron HCl 4 mg 09/01/18 13:10 09/01/18 19:05 Zofran IVPUSH 4 mg Q4H PRN Administration Nausea/Vomiting Pantoprazole Sodium 40 mg 09/01/18 08:36 09/01/18 08:45 Protonix Iv IVPUSH 09/01/18 08:37 40 mg ONETIME ONE Administration Sodium Chloride 10 ml 09/01/18 08:26 Saline Flush FLUSH ASDIRECTED PRN Keep Vein Open - Radiology Interpretation Free Text/Narrative:: Portable chest x-ray showed no acute disease. - Re-Assessments/Exams Free Text/Narrative Re-Assessment/Exam: 09/01/18 09:45: The patient has received 1 L of normal saline as a bolus. She has also received Zofran 4 mg IV. She continues to have some nausea with some dry heaving. She also continues to have diffuse abdominal pain. Her chest pressure is improved. Her pulse rate is still in the 130s. Her labs support alcoholic ketoacidosis with severe dehydration/volume depletion. She also has hypomagnesemia. In addition to her alcohol abuse, she also has acute alcohol intoxication. She will need ongoing cardiac monitoring, continued IV fluid hydration and antiemetics and careful monitoring for alcohol withdrawal. She will need admission and will need a greater then 2 midnight stay to accomplish her plan of care. I called and discussed the patient's case with Dr. Lnua and he will admit the patient. The patient and the aren't agreed with the plans for admission. The patient is being given magnesium IV, Phenergan IV for her continued nausea and vomiting and a single dose of fentanyl IV for her abdominal pain. She is continuing to get IV fluid hydration with normal saline. The patient will be transferred to the floor soon. Departure - Departure Time of Disposition: 10:15 Disposition: Admitted As Inpatient 67 Condition: Fair Clinical Impression: Alcoholic ketoacidosis, Alcohol abuse, Hypomagnesemia, Severe dehydration Intractable vomiting with nausea Qualifiers: Vomiting type: unspecified Qualified Code(s): R11.2 - Nausea with vomiting, unspecified Alcohol intoxication Qualifiers: Complication of substance-induced condition: with unspecified complication Qualified Code(s): F10.929 - Alcohol use, unspecified with intoxication, unspecified Abdominal pain Qualifiers: Abdominal location: generalized Qualified Code(s): R10.84 - Generalized abdominal pain - Discharge Information Critical Care Note - Critical Care Note Total Time (mins): 105 Comments: Total critical care time spent with the patient was 105 minutes.
[2018-09-01] MEDS ORDERED: Magnesium Sulfate/Water 2 GM in Premix Bag 1 BAG IV ONE (09:30)
[2018-09-01] MEDS ORDERED: Promethazine 25 MG in Sodium Chloride 0.9% 50 ML IV ONE (09:30)
[2018-09-01] MEDS ORDERED: fentaNYL 100 MCG/2 ML SDV IVPUSH ONE (09:47)
[2018-09-01] MEDS ORDERED: NS + KCl 20mEq/L 1,000 ML IV SCH (11:00)
[2018-09-01] MEDS ORDERED: MVI, Adult with Vitamin K 10 ML, Thiamine 100 MG, Folic Acid 1 MG, Magnesium Sulfate 1 ... IV ONE ×5 (11:10)
--- NOTE | 2018-09-01 11:19 | PCM.HP ---
H&P History of Present Illness - General Date of Service: 09/01/18 Admit Problem/Dx: Admission Diagnosis/Problem Admission Diagnosis/Problem Ketoacidosis Source of Information: Patient, EMS Notes Reviewed History Limitations: Reports: No Limitations - History of Present Illness Initial Comments - Free Text/Narative: This is a 53-year-old female patient with long standing history of alcoholism. She is had vomiting 30-40 times according to her , abdominal pain, nausea. No fevers, chills, diarrhea or constipation. She drinks chronically she says she drinks about 3 drinks a day and her brings started she doesn't know how much it is but usually whiskey. She says she hasn't drank for about 3 days because of the pain. She has dysuria, pallor, hematuria. She lives with her she states she is now in a wheelchair most of the time. She's had many admissions for alcohol withdrawal, abdominal pain. Upper abdominal region Pain Score (Numeric/FACES): 5 - Related Data Allergies/Adverse Reactions: Allergies Allergy/AdvReac Type Severity Reaction Status Date / Time No Known Allergies Allergy Verified 09/01/18 08:15 Home Medications: Home Meds Nitroglycerin [Nitrostat] 0.4 mg SL ASDIRECTED PRN 04/24/17 [History] hydrOXYzine pamoate [Hydroxyzine Pamoate] 25 mg PO TID PRN 04/24/17 [History] Multivitamins [Tab-A-Shelby] 1 tab PO DAILY tablet 05/26/17 [Rx] Thiamine [Vitamin B-1] 100 mg PO DAILY #30 tablet 05/26/17 [Rx] Acetaminophen [Tylenol] 650 mg PO Q4H PRN #100 tablet 12/15/17 [Rx] Magnesium Oxide 400 mg PO BIDAC #60 tablet 12/15/17 [Rx] Potassium Chloride [Klor-Con] 20 meq PO QID 1 Days #100 packet 12/15/17 [Rx] Past Medical History HEENT History: Reports: Cataract, Impaired Vision Cardiovascular History: Reports: Angina, Arrhythmia (Palpitations), MS Other Cardiovascular History: Pt reports palpitations Respiratory History: Reports: SOB Gastrointestinal History: Reports: Cholelithiasis, Cirrhosis, Gastritis, GERD Genitourinary History: Reports: UTI, Recurrent [employer] History: Reports: Other OB/BYN History: [id number] Musculoskeletal History: Reports: Other (See Below) Other Musculoskeletal History: peripheral neuropathy,airr Neurological History: Reports: Neuropathy, Peripheral Psychiatric History: Reports: Addiction, Anxiety, Panic Attack, Psych Hospitalization(s) Other Psychiatric History: Hx ETOH abuse Endocrine/Metabolic History: Reports: None Hematologic History: Reports: Anemia Immunologic History: Reports: None Oncologic (Cancer) History: Reports: None Dermatologic History: Reports: Other (See Below) Other Dermatologic History: severe goel bite to hands bilat & feet. Has bilat foot drop. - Infectious Disease History Infectious Disease History: Reports: Chicken Pox Other Infectious Disease History: Unknown. - Past Surgical History HEENT Surgical History: Reports: Cataract Surgery, Tonsillectomy GI Surgical History: Reports: Appendectomy Dermatological Surgical History: Reports: Skin Graft Social & Family History - Family History Family Medical History: Unobtainable - Tobacco Use Smoking Status *Q: Unknown Ever Smoked (Nonsmoker) Second Hand Smoke Exposure: Yes - Caffeine Use Caffeine Use: Reports: None Other Caffeine Use: Unknown. Patient poor historian at this time. Caffeine Use Comment: Does not use caffeine regularly - Alcohol Use Days Per Week of Alcohol Use: 7 Number of Drinks Per Day: 3 Total Drinks Per Week: 21 Date of Last Drink: 08/29/18 Time of Last Drink: 18:00 - Recreational Drug Use Recreational Drug Use: No - Living Situation & Occupation Living situation: Reports: (Here with her ) H&P Review of Systems - Review of Systems: Review Of Systems: See Below General: Reports: Weakness, Fatigue, Decreased Appetite, Weight Loss HEENT: Reports: No Symptoms Pulmonary: Reports: No Symptoms Cardiovascular: Reports: No Symptoms Gastrointestinal: Reports: Abdominal Pain. Denies: Black Stool, Bloody Stool, Melena Genitourinary: Reports: No Symptoms Musculoskeletal: Reports: No Symptoms Skin: Reports: No Symptoms Psychiatric: Reports: No Symptoms Neurological: Reports: Dizziness Hematologic/Lymphatic: Reports: No Symptoms Immunologic: Reports: No Symptoms Exam - Exam Exam: See Below - Vital Signs Vital Signs: Last Vital Signs Temp 97.5 F 09/01/18 10:15 Pulse 135 H 09/01/18 10:15 Resp 18 09/01/18 10:15 BP 108/58 L 09/01/18 10:15 Pulse Ox 98 06/25/19 10:15 Weight: 127 lb 9 oz - Exam General: Alert, Oriented HEENT: Hearing Intact, Posterior Pharynx Clear, TMs Clear Neck: Supple, Trachea Midline Lungs: Clear to Auscultation, Normal Respiratory Effort. No: Crackles, Rales, Rhonchi Cardiovascular: Regular Rhythm, Tachycardia. No: Systolic Murmur, Diastolic Murmur GI/Abdominal Exam: Normal Bowel Sounds, Other (Mildly bloated and diffuse pain. I do not feel any organomegaly at this time. No rebound or guarding.) Back Exam: Normal Inspection, Full Range of Motion Extremities: Normal Inspection, Non-Tender, No Pedal Edema Skin: Dry, Intact Neurological: Normal Speech, Normal Tone Neuro Extensive - Mental Status: Oriented x3 Psychiatric: Alert - Patient Data Lab Results Last 24 hrs: Laboratory Results - last 24 hr 09/01/18 09/01/18 09/01/18 Range/Units 08:05 08:05 08:05 WBC 10.4 (4.5-12.0) X10-3/uL RBC 4.88 (3.23-5.20) x10(6)uL Hgb 16.0 H (11.5-15.5) g/dL Hct 47.8 (30.0-51.3) % MCV 98.1 H (80-96) fL MCH 32.8 (27.7-33.6) pg MCHC 33.4 (32.2-35.4) g/dL RDW 12.7 (11.5-15.5) % Plt Count 245 (125-369) X10(3)uL MPV 8.3 (7.4-10.4) fL Neut % (Auto) 83.2 H (46-82) % Lymph % (Auto) 11.8 L (13-37) % [place] % (Auto) 4.2 (4-12) % Eos % (Auto) 0 L (1.0-5.0) % Baso % (Auto) 1 (0-2) % Neut # (Auto) 8.7 H (1.6-8.3) # Lymph # (Auto) 1.2 (0.6-5.0) # [place] # (Auto) 0.4 (0.0-1.3) # Eos # (Auto) 0.0 (0.0-0.8) # Baso # (Auto) 0.1 (0.0-0.2) # POC VBG pH (7.31-7.41) POC VBG pCO2 (41-51) mmHG POC VBG HCO3 (23-28) mmol/L POC VBG Total CO2 (24-29) mmol/L POC VBG Base Excess (-2-3) mmol/L Sodium 142 (135-145) mmol/L Potassium 4.3 (3.5-5.3) mmol/L Chloride 96 L D (100-110) mmol/L Carbon Dioxide 14 L (21-32) mmol/L BUN 6 L (7-18) mg/dL Creatinine 0.9 (0.55-1.02) mg/dL Est Cr Clr Drug Dosing 65.45 mL/min Estimated GFR (MDRD) > 60 (>60) BUN/Creatinine Ratio 6.7 L (9-20) Glucose 118 H D (80-116) mg/dL Calcium 9.2 (8.6-10.2) mg/dL Magnesium 1.5 L (1.8-2.5) mg/dL Total Bilirubin 0.8 (0.1-1.3) mg/dL AST 143 H D (5-25) IU/L ALT 102 H D (12-36) U/L Alkaline Phosphatase 199 H (56-112) IU/L Troponin I < 0.017 L (<0.017-0.056) ng/mL Total Protein 9.2 H (6.0-8.0) g/dL Albumin 4.6 (3.5-5.2) g/dL Globulin 4.6 g/dL Albumin/Globulin Ratio 1.0 Amylase 54 (25-115) U/L Ethyl Alcohol 0.29 H* (<0.03) % 09/01/18 09/01/18 Range/Units 08:50 09:02 WBC (4.5-12.0) X10-3/uL RBC (3.23-5.20) x10(6)uL Hgb (11.5-15.5) g/dL Hct (30.0-51.3) % MCV (80-96) fL MCH (27.7-33.6) pg MCHC (32.2-35.4) g/dL RDW (11.5-15.5) % Plt Count (125-369) X10(3)uL MPV (7.4-10.4) fL Neut % (Auto) (46-82) % Lymph % (Auto) (13-37) % [place] % (Auto) (4-12) % Eos % (Auto) (1.0-5.0) % Baso % (Auto) (0-2) % Neut # (Auto) (1.6-8.3) # Lymph # (Auto) (0.6-5.0) # [place] # (Auto) (0.0-1.3) # Eos # (Auto) (0.0-0.8) # Baso # (Auto) (0.0-0.2) # POC VBG pH 7.12 L Cancelled (7.31-7.41) POC VBG pCO2 33.0 L Cancelled (41-51) mmHG POC VBG HCO3 10.7 L Cancelled (23-28) mmol/L POC VBG Total CO2 12.0 L Cancelled (24-29) mmol/L POC VBG Base Excess -19 L Cancelled (-2-3) mmol/L Sodium (135-145) mmol/L Potassium (3.5-5.3) mmol/L Chloride (100-110) mmol/L Carbon Dioxide (21-32) mmol/L BUN (7-18) mg/dL Creatinine (0.55-1.02) mg/dL Est Cr Clr Drug Dosing mL/min Estimated GFR (MDRD) (>60) BUN/Creatinine Ratio (9-20) Glucose (80-116) mg/dL Calcium (8.6-10.2) mg/dL Magnesium (1.8-2.5) mg/dL Total Bilirubin (0.1-1.3) mg/dL AST (5-25) IU/L ALT (12-36) U/L Alkaline Phosphatase (56-112) IU/L Troponin I (<0.017-0.056) ng/mL Total Protein (6.0-8.0) g/dL Albumin (3.5-5.2) g/dL Globulin g/dL Albumin/Globulin Ratio Amylase (25-115) U/L Ethyl Alcohol (<0.03) % Result Diagrams: 09/01/18 08:05 09/01/18 08:05 - Problem List (1) Palliative care status SNOMED Code(s): 267959798 ICD Code: Z51.5 - ENCOUNTER FOR PALLIATIVE CARE Status: Acute Current Visit: Yes (2) Abdominal pain SNOMED Code(s): 22661809 ICD Code: R10.9 - UNSPECIFIED ABDOMINAL PAIN Status: Acute Current Visit : Yes Qualifiers: Abdominal location: generalized Qualified Code(s): R10.84 - Generalized abdominal pain (3) Alcohol abuse SNOMED Code(s): 33334217 ICD Code: F10.10 - ALCOHOL ABUSE, UNCOMPLICATED Status: Acute Current Visit: Yes Problem Details: Patient has been not amenable to treatment or interventions. Again offered assistance and declined. (4) Alcohol intoxication SNOMED Code(s): 95594730 ICD Code: F10.929 - ALCOHOL USE, UNSPECIFIED WITH INTOXICATION, UNSPECIFIED Status: Acute Current Visit: Yes Qualifiers: Complication of substance-induced condition: with unspecified complication Qualified Code(s): F10.929 - Alcohol use, unspecified with intoxication, unspecified (5) Alcoholic ketoacidosis SNOMED Code(s): 78758080 ICD Code: E87.2 - ACIDOSIS Status: Acute Current Visit: Yes (6) Hypomagnesemia SNOMED Code(s): 510602101 ICD Code: E83.42 - HYPOMAGNESEMIA Status: Acute Current Visit: Yes Problem Details: Continue PO supplementation outpatient. May crush or dissolve in water. If she continues to drink, will continue to have deficit. (7) Intractable vomiting with nausea SNOMED Code(s): 489602950 ICD Code: R11.2 - NAUSEA WITH VOMITING, UNSPECIFIED Status: Acute Current Visit: Yes Qualifiers: Vomiting type: unspecified Qualified Code(s): R11.2 - Nausea with vomiting , unspecified (8) Severe dehydration SNOMED Code(s): 342769681 ICD Code: E86.0 - DEHYDRATION Status: Acute Current Visit: Yes (9) Acute alcoholic hepatitis SNOMED Code(s): 2160260 ICD Code: K70.10 - ALCOHOLIC HEPATITIS WITHOUT ASCITES Status: Acute Current Visit: No Problem List Initiated/Reviewed/Updated: Yes Orders Last 24hrs: Active Orders 24 hr Category Date Time Status Patient Status [ADT] Routine ADT 09/01/18 10:47 Ordered Cardiac Monitoring [RC] CONTINUOUS Care 09/01/18 10:48 Ordered Height and Weight [RC] DAILY Care 09/01/18 10:47 Ordered Intake and Output [RC] QSHIFT Care 09/01/18 10:48 Ordered May Shower [RC] ASDIRECTED Care 09/01/18 10:47 Ordered Oxygen Therapy [RC] PRN Care 09/01/18 10:47 Ordered Up With Assistance [RC] ASDIRECTED Care 09/01/18 10:47 Ordered VTE/DVT Education [RC] Per Unit Routine Care 09/01/18 10:47 Ordered Vital Signs [RC] Q4H Care 09/01/18 10:47 Ordered Clear Liquid Diet [DIET] Diet 09/01/18 Lunch Ordered Chest 1V Frontal [CR] Stat Exams 09/01/18 08:30 Taken ABG [BLOOD GAS ARTERIAL] [BG] Routine Lab 09/01/18 10:55 Ordered AMMONIA, PLASMA Routine Lab 09/01/18 10:55 Ordered LACTIC ACID [CHEM] Routine Lab 09/01/18 10:55 Ordered PTT,PARTIAL THROMBOPLSTIN TIME [COAG] Timed Lab 09/01/18 10:47 Ordered UA W/MICROSCOPIC [URIN] Stat Lab 09/01/18 08:33 Ordered LORazepam [Ativan] Med 09/01/18 10:51 Ordered 1 mg IVPUSH Q4H PRN MVI, Adult with Vitamin K [Infuvite Adult] 10 ml Med 09/01/18 11:10 Active Thiamine [Vitamin B-1] 100 mg Folic Acid 1 mg Magnesium Sulfate [Magnesium Sulfate 50%] 1 gm Sodium Chloride 0.9% [Normal Saline] 1,000 ml IV ONETIME NS + KCl 20mEq/L [Normal Saline with 20 mEq KCl] 1,000 Med 09/01/18 11:00 Ordered ml IV ASDIRECTED Sodium Chloride 0.9% [Saline Flush] Med 09/01/18 08:26 Active 10 ml FLUSH ASDIRECTED PRN Peripheral IV Insertion Adult [OM.PC] Routine Oth 09/01/18 08:26 Ordered Resuscitation Status Routine Resus Stat 09/01/18 10:47 Ordered Medication Orders Potassium Chloride/Sodium Chloride (Normal Saline With 20 Meq Kcl) 1,000 mls @ 250 mls/hr IV Q4H ERICH Multivitamins/Minerals 10 ml/Thiamine HCl 100 mg/ Folic Acid 1 mg/ Magnesium Sulfate 1 gm/ Sodium Chloride 1,013.2 mls @ 500 mls/hr IV ONETIME ONE Stop: 09/01/18 13:11 Lorazepam (Ativan) 1 mg IVPUSH Q4H PRN PRN Reason: Withdrawal Symptoms Sodium Chloride (Saline Flush) 10 ml FLUSH ASDIRECTED PRN PRN Reason: Keep Vein Open Assessment/Plan Comment:: 1. Admit to the ICU with IV fluids. 2. Wait for her regular medicines are reconciled and go over them. 3. For VTE prophylaxis-wait to get the PT/INR/PTT before to proceed. 4. Clear liquids 5. Ativan 1 mg every 3-4 hours for alcohol withdrawal per 6. Vitamins including thiamine IV. 7. Repeat ABGs at 4 PM. 8. Up with assist.
[2018-09-01] MEDS: LORazepam 2 MG/ML SDV IVPUSH PRN ×2 (12:30→19:04)
[2018-09-01] MEDS: NS + KCl 20mEq/L 1,000 ML IV SCH ×2 (13:49→17:54)
[2018-09-01] MEDS ORDERED: HYDROmorphone 2 MG/ML SDV IVPUSH PRN (13:53)
[2018-09-01] MEDS: Ondansetron 4 MG/2 ML SDV IVPUSH PRN ×2 (14:15→19:05)
--- NOTE | 2018-09-01 17:57 | PCM.SN ---
- Free Text/Narrative Note: Patient repeat blood gas shows pH is 7.04. The blood gas like that she should be transferred to [place]. I talked to Dr. ochoa. He agreed to take her in transfer. She'll be transferred by [facility] ambulance.
--- NOTE | 2018-09-01 18:04 | PCM.DCSUM1 ---
Discharge Summary - Hospital Course Free Text/Narrative:: Hospital course-patient was admitted. She has some belly pain was improved with fentanyl in the ER. Her CT scan was down so we are not able to do any imaging. Her pH was 7.1 and she's put on copious amounts of IV fluids including boluses. She had a lactic acid was checked was 4.2. Her LFTs of course are elevated. She was observed through the day and her bowel pain came back what she was given some Dilaudid and it got. I came examine her abdomen exam was negative. Patient was more alert and hungry. She states she was feeling good. Her pH came back at 7.04 on ABG. With that, pH felt uncomfortable keeping her so-called [facility] and Dr. Mg kindly accepted her in transfer. She'll be transferred by [facility] embolus. Her alcohol was over 0.2. Brief History: This is a 53-year-old female patient with long standing history of alcoholism. She is had vomiting 30-40 times according to her , abdominal pain, nausea. No fevers, chills, diarrhea or constipation. She drinks chronically she says she drinks about 3 drinks a day and her brings started she doesn't know how much it is but usually whiskey. She says she hasn't drank for about 3 days because of the pain. She has dysuria, pallor , hematuria. She lives with her she states she is now in a wheelchair most of the time. She's had many admissions for alcohol withdrawal, abdominal pain. Diagnosis: Stroke: No - Discharge Data Discharge Date: 09/01/18 Discharge Disposition: DC/Tfer to Acute Hospital 02 Condition: Fair - Discharge Diagnosis/Problem(s) (1) Palliative care status SNOMED Code(s): 828223616 ICD Code: Z51.5 - ENCOUNTER FOR PALLIATIVE CARE Status: Acute Current Visit: Yes (2) Abdominal pain SNOMED Code(s): 10046918 ICD Code: R10.9 - UNSPECIFIED ABDOMINAL PAIN Status: Acute Current Visit : Yes Qualifiers: Abdominal location: generalized Qualified Code(s): R10.84 - Generalized abdominal pain (3) Alcohol abuse SNOMED Code(s): 78315308 ICD Code: F10.10 - ALCOHOL ABUSE, UNCOMPLICATED Status: Acute Current Visit: Yes Problem Details: Patient has been not amenable to treatment or interventions. Again offered assistance and declined. (4) Alcohol intoxication SNOMED Code(s): 90184460 ICD Code: F10.929 - ALCOHOL USE, UNSPECIFIED WITH INTOXICATION, UNSPECIFIED Status: Acute Current Visit: Yes Qualifiers: Complication of substance-induced condition: with unspecified complication Qualified Code(s): F10.929 - Alcohol use, unspecified with intoxication, unspecified (5) Alcoholic ketoacidosis SNOMED Code(s): 65221252 ICD Code: E87.2 - ACIDOSIS Status: Acute Current Visit: Yes (6) Hypomagnesemia SNOMED Code(s): 001036609 ICD Code: E83.42 - HYPOMAGNESEMIA Status: Acute Current Visit: Yes Problem Details: Continue PO supplementation outpatient. May crush or dissolve in water. If she continues to drink, will continue to have deficit. (7) Intractable vomiting with nausea SNOMED Code(s): 718578427 ICD Code: R11.2 - NAUSEA WITH VOMITING, UNSPECIFIED Status: Acute Current Visit: Yes Qualifiers: Vomiting type: unspecified Qualified Code(s): R11.2 - Nausea with vomiting , unspecified (8) Severe dehydration SNOMED Code(s): 894086256 ICD Code: E86.0 - DEHYDRATION Status: Acute Current Visit: Yes (9) Acute alcoholic hepatitis SNOMED Code(s): 9035777 ICD Code: K70.10 - ALCOHOLIC HEPATITIS WITHOUT ASCITES Status: Acute Current Visit: No (10) Acidosis SNOMED Code(s): 10708489 ICD Code: E87.2 - ACIDOSIS Status: Acute Current Visit: Yes - Patient Instructions Diet: Clear Liquid Diet Activity: Bedrest Driving: Do Not Drive Showering/Bathing: May Shower Other/Special Instructions: 1. Transfer to [facility] by [facility] ambulance per. 2. Dr. valles excepting - Discharge Plan Home Medications: Home Meds Nitroglycerin [Nitrostat] 0.4 mg SL ASDIRECTED PRN 04/24/17 [History] hydrOXYzine pamoate [Hydroxyzine Pamoate] 25 mg PO TID PRN 04/24/17 [History] Multivitamins [Tab-A-[place]] 1 tab PO DAILY tablet 05/26/17 [Rx] Thiamine [Vitamin B-1] 100 mg PO DAILY #30 tablet 05/26/17 [Rx] Acetaminophen [Tylenol] 650 mg PO Q4H PRN #100 tablet 12/15/17 [Rx] Magnesium Oxide 400 mg PO BIDAC #60 tablet 12/15/17 [Rx] Potassium Chloride [Klor-Con] 20 meq PO QID 1 Days #100 packet 12/15/17 [Rx] HYDROmorphone [Dilaudid] 2 mg IVPUSH Q3H PRN sdv 09/01/18 [Rx] LORazepam [Ativan] 1 mg IVPUSH Q4H PRN vial 09/01/18 [Rx] NS + KCl 20mEq/L [Normal Saline with 20 mEq KCl] 1 ml IV Q4H bag 09/01/18 [Rx] Ondansetron [Zofran] 4 mg IVPUSH Q4H PRN vial 09/01/18 [Rx] Sodium Chloride 0.9% [Saline Flush] 10 ml FLUSH ASDIRECTED PRN syringe [Rx] Forms: ED Department Discharge Referrals: Rocco Gonsales MD [Primary Care Provider] - - Discharge Summary/Plan Comment DC Time >30 min.: No - Patient Data Vitals - Most Recent: Last Vital Signs Temp 97.5 F 09/01/18 10:15 Pulse 128 H 09/01/18 16:37 Resp 14 09/01/18 16:37 BP 93/47 L 09/01/18 16:37 Pulse Ox 97 09/01/18 16:37 Weight - Most Recent: 127 lb 9 oz I&O - Last 24 hours: Intake & Output 09/01/18 09/01/18 09/01/18 06:59 14:59 22:59 Intake Total 60 Output Total 1650 400 Balance -1650 -340 Lab Results - Last 24 hrs: Laboratory Results - last 24 hr 09/01/18 09/01/18 09/01/18 Range/Units 08:05 08:05 08:05 WBC 10.4 (4.5-12.0) X10-3/uL RBC 4.88 (3.23-5.20) x10(6)uL Hgb 16.0 H (11.5-15.5) g/dL Hct 47.8 (30.0-51.3) % MCV 98.1 H (80-96) fL MCH 32.8 (27.7-33.6) pg MCHC 33.4 (32.2-35.4) g/dL RDW 12.7 (11.5-15.5) % Plt Count 245 (125-369) X10(3)uL MPV 8.3 (7.4-10.4) fL Neut % (Auto) 83.2 H (46-82) % Lymph % (Auto) 11.8 L (13-37) % [place] % (Auto) 4.2 (4-12) % Eos % (Auto) 0 L (1.0-5.0) % Baso % (Auto) 1 (0-2) % Neut # (Auto) 8.7 H (1.6-8.3) # Lymph # (Auto) 1.2 (0.6-5.0) # [place] # (Auto) 0.4 (0.0-1.3) # Eos # (Auto) 0.0 (0.0-0.8) # Baso # (Auto) 0.1 (0.0-0.2) # APTT (24.4-33.2) SECONDS ABG pH (7.35-7.45) ABG pCO2 (35-45) mmHg ABG pO2 (83-108) mmHg ABG HCO3 (22-26) mmol/L ABG O2 Saturation (96-97) % ABG Base Excess (-2-2) Blas Test POC VBG pH (7.31-7.41) POC VBG pCO2 (41-51) mmHG POC VBG HCO3 (23-28) mmol/L POC VBG Total CO2 (24-29) mmol/L POC VBG Base Excess (-2-3) mmol/L O2 Delivery Device Oxygen Flow Rate L Sodium 142 (135-145) mmol/L Potassium 4.3 (3.5-5.3) mmol/L Chloride 96 L D (100-110) mmol/L Carbon Dioxide 14 L (21-32) mmol/L BUN 6 L (7-18) mg/dL Creatinine 0.9 (0.55-1.02) mg/dL Est Cr Clr Drug Dosing 65.45 mL/min Estimated GFR (MDRD) > 60 (>60) BUN/Creatinine Ratio 6.7 L (9-20) Glucose 118 H D (80-116) mg/dL Lactic Acid (0.4-2.2) mmol/L Calcium 9.2 (8.6-10.2) mg/dL Magnesium 1.5 L (1.8-2.5) mg/dL Total Bilirubin 0.8 (0.1-1.3) mg/dL AST 143 H D (5-25) IU/L ALT 102 H D (12-36) U/L Alkaline Phosphatase 199 H (56-112) IU/L Troponin I < 0.017 L (<0.017-0.056) ng/mL Total Protein 9.2 H (6.0-8.0) g/dL Albumin 4.6 (3.5-5.2) g/dL Globulin 4.6 g/dL Albumin/Globulin Ratio 1.0 Amylase 54 (25-115) U/L Urine Color (YELLOW) Urine Appearance (CLEAR) Urine pH (5.0-6.5) Ur Specific [place] (1.010-1.025) Urine Protein (NEGATIVE) mg/dL Urine Glucose (UA) (NORMAL) mg/dL Urine Ketones (NEGATIVE) mg/dL Urine Occult Blood (NEGATIVE) Urine Nitrite (NEGATIVE) Urine Bilirubin (NEGATIVE) Urine Urobilinogen (NEGATIVE) mg/dL Ur Leukocyte Esterase (NEGATIVE) Urine WBC (0-5) Ur Squamous Epith Cells (NS,R,O) Urine Bacteria (NS) Ethyl Alcohol 0.29 H* (<0.03) % 09/01/18 09/01/18 09/01/18 Range/Units 08:05 08:50 09:02 WBC (4.5-12.0) X10-3/uL RBC (3.23-5.20) x10(6)uL Hgb (11.5-15.5) g/dL Hct (30.0-51.3) % MCV (80-96) fL MCH (27.7-33.6) pg MCHC (32.2-35.4) g/dL RDW (11.5-15.5) % Plt Count (125-369) X10(3)uL MPV (7.4-10.4) fL Neut % (Auto) (46-82) % Lymph % (Auto) (13-37) % [place] % (Auto) (4-12) % Eos % (Auto) (1.0-5.0) % Baso % (Auto) (0-2) % Neut # (Auto) (1.6-8.3) # Lymph # (Auto) (0.6-5.0) # [place] # (Auto) (0.0-1.3) # Eos # (Auto) (0.0-0.8) # Baso # (Auto) (0.0-0.2) # APTT 23.0 L (24.4-33.2) SECONDS ABG pH (7.35-7.45) ABG pCO2 (35-45) mmHg ABG pO2 (83-108) mmHg ABG HCO3 (22-26) mmol/L ABG O2 Saturation (96-97) % ABG Base Excess (-2-2) Blas Test POC VBG pH 7.12 L Cancelled (7.31-7.41) POC VBG pCO2 33.0 L Cancelled (41-51) mmHG POC VBG HCO3 10.7 L Cancelled (23-28) mmol/L POC VBG Total CO2 12.0 L Cancelled (24-29) mmol/L POC VBG Base Excess -19 L Cancelled (-2-3) mmol/L O2 Delivery Device Oxygen Flow Rate L Sodium (135-145) mmol/L Potassium (3.5-5.3) mmol/L Chloride (100-110) mmol/L Carbon Dioxide (21-32) mmol/L BUN (7-18) mg/dL Creatinine (0.55-1.02) mg/dL Est Cr Clr Drug Dosing mL/min Estimated GFR (MDRD) (>60) BUN/Creatinine Ratio (9-20) Glucose (80-116) mg/dL Lactic Acid (0.4-2.2) mmol/L Calcium (8.6-10.2) mg/dL Magnesium (1.8-2.5) mg/dL Total Bilirubin (0.1-1.3) mg/dL AST (5-25) IU/L ALT (12-36) U/L Alkaline Phosphatase (56-112) IU/L Troponin I (<0.017-0.056) ng/mL Total Protein (6.0-8.0) g/dL Albumin (3.5-5.2) g/dL Globulin g/dL Albumin/Globulin Ratio Amylase (25-115) U/L Urine Color (YELLOW) Urine Appearance (CLEAR) Urine pH (5.0-6.5) Ur Specific [place] (1.010-1.025) Urine Protein (NEGATIVE) mg/dL Urine Glucose (UA) (NORMAL) mg/dL Urine Ketones (NEGATIVE) mg/dL Urine Occult Blood (NEGATIVE) Urine Nitrite (NEGATIVE) Urine Bilirubin (NEGATIVE) Urine Urobilinogen (NEGATIVE) mg/dL Ur Leukocyte Esterase (NEGATIVE) Urine WBC (0-5) Ur Squamous Epith Cells (NS,R,O) Urine Bacteria (NS) Ethyl Alcohol (<0.03) % 09/01/18 09/01/18 09/01/18 Range/Units 10:35 16:10 16:25 WBC (4.5-12.0) X10-3/uL RBC (3.23-5.20) x10(6)uL Hgb (11.5-15.5) g/dL Hct (30.0-51.3) % MCV (80-96) fL MCH (27.7-33.6) pg MCHC (32.2-35.4) g/dL RDW (11.5-15.5) % Plt Count (125-369) X10(3)uL MPV (7.4-10.4) fL Neut % (Auto) (46-82) % Lymph % (Auto) (13-37) % [place] % (Auto) (4-12) % Eos % (Auto) (1.0-5.0) % Baso % (Auto) (0-2) % Neut # (Auto) (1.6-8.3) # Lymph # (Auto) (0.6-5.0) # [place] # (Auto) (0.0-1.3) # Eos # (Auto) (0.0-0.8) # Baso # (Auto) (0.0-0.2) # APTT (24.4-33.2) SECONDS ABG pH 7.09 L* (7.35-7.45) ABG pCO2 37 (35-45) mmHg ABG pO2 110 H (83-108) mmHg ABG HCO3 11 L (22-26) mmol/L ABG O2 Saturation 96 (96-97) % ABG Base Excess -18.9 L (-2-2) Blas Test Passed POC VBG pH (7.31-7.41) POC VBG pCO2 (41-51) mmHG POC VBG HCO3 (23-28) mmol/L POC VBG Total CO2 (24-29) mmol/L POC VBG Base Excess (-2-3) mmol/L O2 Delivery Device Nasal cannula Oxygen Flow Rate 1.5 L Sodium (135-145) mmol/L Potassium (3.5-5.3) mmol/L Chloride (100-110) mmol/L Carbon Dioxide (21-32) mmol/L BUN (7-18) mg/dL Creatinine (0.55-1.02) mg/dL Est Cr Clr Drug Dosing mL/min Estimated GFR (MDRD) (>60) BUN/Creatinine Ratio (9-20) Glucose (80-116) mg/dL Lactic Acid 2.4 H (0.4-2.2) mmol/L Calcium (8.6-10.2) mg/dL Magnesium (1.8-2.5) mg/dL Total Bilirubin (0.1-1.3) mg/dL AST (5-25) IU/L ALT (12-36) U/L Alkaline Phosphatase (56-112) IU/L Troponin I (<0.017-0.056) ng/mL Total Protein (6.0-8.0) g/dL Albumin (3.5-5.2) g/dL Globulin g/dL Albumin/Globulin Ratio Amylase (25-115) U/L Urine Color Yellow (YELLOW) Urine Appearance Slightly cloudy (CLEAR) Urine pH 5.0 (5.0-6.5) Ur Specific [place] 1.025 (1.010-1.025) Urine Protein 100 H (NEGATIVE) mg/dL Urine Glucose (UA) Normal (NORMAL) mg/dL Urine Ketones 150 H (NEGATIVE) mg/dL Urine Occult Blood Negative (NEGATIVE) Urine Nitrite Negative (NEGATIVE) Urine Bilirubin Negative (NEGATIVE) Urine Urobilinogen Normal (NEGATIVE) mg/dL Ur Leukocyte Esterase Negative (NEGATIVE) Urine WBC 0-5 (0-5) Ur Squamous Epith Cells Few H (NS,R,O) Urine Bacteria Few H (NS) Ethyl Alcohol (<0.03) % [facility] Results - Last 24 hrs: Microbiology 09/01/18 09:30 Stool Occult Blood ([facility]ALPES[facility]) - Final Stool / Feces Med Orders - Current: Current Medications Hydromorphone HCl (Dilaudid) 2 mg IVPUSH Q3H PRN PRN Reason: Abdominal Pain Last Admin: 09/01/18 14:22 Dose: 2 mg Potassium Chloride/Sodium Chloride (Normal Saline With 20 Meq Kcl) 1,000 mls @ 250 mls/hr IV Q4H ERICH Last Admin: 09/01/18 17:54 Dose: 250 mls/hr Lorazepam (Ativan) 1 mg IVPUSH Q4H PRN PRN Reason: Withdrawal Symptoms Last Admin: 09/01/18 12:30 Dose: 1 mg Ondansetron HCl (Zofran) 4 mg IVPUSH Q4H PRN PRN Reason: Nausea/Vomiting Last Admin: 09/01/18 14:15 Dose: 4 mg Sodium Chloride (Saline Flush) 10 ml FLUSH ASDIRECTED PRN PRN Reason: Keep Vein Open Discontinued Medications Fentanyl (Sublimaze) 50 mcg IVPUSH ONETIME ONE Stop: 09/01/18 09:48 Last Admin: 09/01/18 09:56 Dose: 50 mcg Sodium Chloride (Normal Saline) 1,000 mls @ 999 mls/hr IV .BOLUS ONE Stop: 09/01/18 09:10 Last Admin: 09/01/18 08:10 Dose: 999 mls/hr Sodium Chloride (Normal Saline) 1,000 mls @ 999 mls/hr IV .BOLUS ONE Stop: 09/01/18 09:32 Last Admin: 09/01/18 09:10 Dose: 999 mls/hr Magnesium Sulfate 2 gm/ Premix 50 mls @ 50 mls/hr IV ONETIME ONE Stop: 09/01/18 10:29 Last Admin: 09/01/18 10:01 Dose: 50 mls/hr Promethazine HCl 25 mg/ Sodium (Chloride) 51 mls @ 200 mls/hr IV ONETIME ONE Stop: 09/01/18 09:45 Last Admin: 09/01/18 09:37 Dose: 200 mls/hr Potassium Chloride/Sodium Chloride (Normal Saline With 20 Meq Kcl) 1,000 mls @ 250 mls/hr IV Q4H ERICH Multivitamins/Minerals 10 ml/Thiamine HCl 100 mg/ Folic Acid 1 mg/ Magnesium Sulfate 1 gm/ Sodium Chloride 1,013.2 mls @ 500 mls/hr IV ONETIME ONE Stop: 09/01/18 13:11 Last Admin: 09/01/18 11:32 Dose: 500 mls/hr Ondansetron HCl (Zofran) 4 mg IVPUSH ONETIME ONE Stop: 09/01/18 08:33 Last Admin: 09/01/18 08:42 Dose: 4 mg Pantoprazole Sodium (Protonix Iv) 40 mg IVPUSH ONETIME ONE Stop: 09/01/18 08:37 Last Admin: 09/01/18 08:45 Dose: 40 mg
[2018-09-01 19:30] VITALS: BP 121/76
--- NOTE | 2018-09-02 11:42 | CR ---
INDICATION: Chest discomfort, abdominal discomfort. CHEST: An AP upright portable view of the chest, 09/01/18, was compared with and 12/10/17, again revealing the heart to be normal in size and shape. The mediastinum was unremarkable. A minimal dextroconvex scoliosis of the upper middle thoracic spine is again noted. Overlying EKG leads are noted. An active infiltrate or effusion was not identified. IMPRESSION: Resolution of previous pneumonia suggested at the left lung base. No acute process at this time. MTDD
== END 2018-09-01 19:10 | DRG 641 ==
LOC: FB.ED 07:43 → FB.ICU 10:00
PROVIDERS: ADMIT Family Medicine; ATTEND Family Medicine
DX: E87.2 Acidosis (principal); Z51.5 Encounter for palliative care; K70.10 Alcoholic hepatitis without ascites; F10.229 Alcohol dependence with intoxication, unspecified; Y90.1 Blood alcohol level of 20-39 mg/100 ml; E83.42 Hypomagnesemia; E86.0 Dehydration; R11.2 Nausea with vomiting, unspecified; R10.84 Generalized abdominal pain; K21.9 Gastro-esophageal reflux disease without esophagitis; M21.372 Foot drop, left foot; M21.371 Foot drop, right foot; I25.2 Old myocardial infarction; I20.9 Angina pectoris, unspecified; H54.7 Unspecified visual loss; Z87.440 Personal history of urinary (tract) infections; F41.9 Anxiety disorder, unspecified; G62.9 Polyneuropathy, unspecified
CPT/HCPCS: 36415; 71045; 80053; 82150; 82272; 82803; 83735; 84484; 85025; 85730; 96361; 96365; 96375; 99285; C9113; G0480; J2405; J2550; J3010; J7030 ×2; J7050; 36600; 81001; 82140; 83605; J1170; J2060; J3411; J3475; J3480; J3490

== ENCOUNTER 2018-12-20 14:08 | Emergency (ER) | payer MEDICAID ==
--- NOTE | 2018-12-20 14:44 | EDM.PDOC ---
ED HPI GENERAL MEDICAL PROBLEM - General Stated Complaint: STOP BREATHING; VOMITING; ABDOMINAL PAIN; SORE THROAT Time Seen by Provider: 12/20/18 14:20 Source of Information: Reports: Patient, Family () History Limitations: Reports: Other (Patient has a somewhat hoarse voice but is able to give a good history) - History of Present Illness INITIAL COMMENTS - FREE TEXT/NARRATIVE: 53-year-old female with history of chronic alcohol abuse who according to the began to have complaints of abdominal pain and vomiting on Friday night. Since then, the reports she has been "unable to keep anything down" and has had vomiting 30+ times today. She has not had a bowel movement for several days. She is still making urine but decreased amounts. There is no hematuria or dysuria. The patient reports that she has diffuse lower abdominal pain that she rates as an 8/10. She also has a sore throat which is developed over the past day after multiple episodes of vomiting and she rates that as about an 8/10 as well. Abdominal pain is cramping and the throat pain is sharp and worse with swallowing. She also has a hoarse voice related to this and has had this in the past with repeated episodes of vomiting. I saw the patient for a very similar problem in August 2018 and she appeared to have alcoholic ketoacidosis and ended up need to be transferred to [facility] in [place]. Today, the was bringing the patient to his car to bring her to the hospital for evaluation and the patient apparently had a syncopal episode at this time. She had been complaining of weakness and dizziness prior to this. She really is basically nonambulatory and has been nonambulatory for quite some time. The felt that she "stopped breathing". [facility] arrived they found the patient to be breathing but did have a blood pressure in the 90 systolic range with a pulse rate in the 130s. I was told that the patient had taken nitroglycerin prior to this episode occurring today but the patient denies this and the cooperates this as well. There is been no fevers. She does feel somewhat short of breath. The does report that she still drinks alcohol but "now only beer". Patient arrives via ambulance with blood pressure of 90 systolic and pulse rate in the 130s. She is awake and alert and able to give a history despite her hoarse voice. There are no other associated signs or symptoms. There are no other modifying factors. Onset: Other (12/18/2018) Duration: Getting Worse Location: Reports: Neck (Sore throat. Hoarse voice), Abdomen Quality: Reports: Sharp, Other (Sore and cramping) Severity: Moderate (to severe) Improves with: Reports: None Worsens with: Reports: Other (Swallowing. Trying to drink or eat.) Context: Reports: Other (As above) Associated Symptoms: Reports: Chest Pain, Nausea/Vomiting, Syncope, Weakness, Other (Abdominal pain) Treatments DATA CONVERSION ANALYST: Reports: Other (see below) (Nothing. Patient is an EMS arrival.) - Related Data Allergies Allergy/AdvReac Type Severity Reaction Status Date / Time No Known Allergies Allergy Verified 09/01/18 08:15 Home Meds: Home Meds Nitroglycerin [Nitrostat] 0.4 mg SL ASDIRECTED PRN 04/24/17 [History] hydrOXYzine pamoate [Hydroxyzine Pamoate] 25 mg PO TID PRN 04/24/17 [History] Multivitamins [Tab-A-[place]] 1 tab PO DAILY tablet 05/26/17 [Rx] Thiamine [Vitamin B-1] 100 mg PO DAILY #30 tablet 05/26/17 [Rx] Acetaminophen [Tylenol] 650 mg PO Q4H PRN #100 tablet 12/15/17 [Rx] Magnesium Oxide 400 mg PO BIDAC #60 tablet 12/15/17 [Rx] Potassium Chloride [Klor-Con] 20 meq PO QID 1 Days #100 packet 12/15/17 [Rx] HYDROmorphone [Dilaudid] 2 mg IVPUSH Q3H PRN sdv 09/01/18 [Rx] LORazepam [Ativan] 1 mg IVPUSH Q4H PRN vial 09/01/18 [Rx] NS + KCl 20mEq/L [Normal Saline with 20 mEq KCl] 1 ml IV Q4H bag 09/01/18 [Rx] Ondansetron [Zofran] 4 mg IVPUSH Q4H PRN vial 09/01/18 [Rx] Sodium Chloride 0.9% [Saline Flush] 10 ml FLUSH ASDIRECTED PRN syringe [Rx] Past Medical History HEENT History: Reports: Cataract, Impaired Vision Cardiovascular History: Reports: Angina, Arrhythmia (Palpitations), [place] Other Cardiovascular History: Pt reports palpitations Gastrointestinal History: Reports: Cholelithiasis, Cirrhosis, Gastritis, GERD Genitourinary History: Reports: UTI, Recurrent Other [employer] History: [id number] Neurological History: Reports: Neuropathy, Peripheral Psychiatric History: Reports: Addiction, Anxiety, Panic Attack, Psych Hospitalization(s) Other Psychiatric History: Hx ETOH abuse Hematologic History: Reports: Anemia Dermatologic History: Reports: Other (See Below) Other Dermatologic History: severe goel bite to hands bilat & feet. Has bilat foot drop. - Infectious Disease History Infectious Disease History: Reports: Chicken Pox Other Infectious Disease History: Unknown. - Past Surgical History HEENT Surgical History: Reports: Cataract Surgery, Tonsillectomy GI Surgical History: Reports: Appendectomy Dermatological Surgical History: Reports: Skin Graft Social & Family History - Family History Family Medical History: Unobtainable - Tobacco Use Smoking Status *Q: Unknown Ever Smoked (Nonsmoker) - Caffeine Use Caffeine Use: Reports: None Other Caffeine Use: Unknown. Patient poor historian at this time. Caffeine Use Comment: Does not use caffeine regularly - Alcohol Use Alcohol Use History: Yes Alcohol Use Frequency: Daily ( reports "only beer now" and "not nearly as much as in the past".) - Living Situation & Occupation Living situation: Reports: (Here with her ) ED ROS GENERAL - Review of Systems Review Of Systems: See Below Constitutional: Reports: Weakness, Fatigue HEENT: Reports: Throat Pain (With hoarse voice), Other (Dry mouth) Respiratory: Reports: Shortness of Breath Cardiovascular: Reports: Chest Pain Endocrine: Reports: Fatigue GI/Abdominal: Reports: Abdominal Pain, Nausea, Vomiting : Reports: Other (Decreased urine output). Denies: Dysuria, Hematuria Musculoskeletal: Reports: No Symptoms Skin: Reports: No Symptoms Neurological: Reports: Syncope, Weakness Hematologic/Lymphatic: Reports: No Symptoms Immunologic: Reports: No Symptoms ED EXAM, GI/ABD - Physical Exam Exam: See Below Exam Limited By: No Limitations General Appearance: Alert, Moderate Distress, Thin (With wasting) Eyes: Bilateral: Normal Appearance, EOMI Ears: Normal External Exam, Hearing Grossly Normal Nose: Normal Inspection, Normal Mucosa, No Blood Throat/Mouth: No Airway Compromise, Other (Hoarse voice. Some erythema posteriorly.) Head: Atraumatic, Normocephalic Neck: Normal Inspection, Supple, Non-Tender, Full Range of Motion, Other (No stridor) Respiratory/Chest: No Respiratory Distress, Lungs Clear, Normal Breath Sounds, No Accessory Muscle Use, Chest Non-Tender Cardiovascular: No JVD, No Murmur, Tachycardia GI/Abdominal Exam: Soft, No Mass, Tender (Diffusely so), Abnormal Bowel Sounds ( Somewhat diminished) Back Exam: Normal Inspection Extremities: Non-Tender, Slow Capillary Refill, Other (Cool in the periphery of her hands and feet.) Neurological: Alert, Oriented, CN II-XII Intact, No Motor/Sensory Deficits Skin Exam: Dry, Intact EKG INTERPRETATION EKG Date: 12/20/18 Time: 14:54 Rhythm: Other (Sinus tachycardia) Rate (Beats/Min): 144 [place]: Normal P-Wave: Present QRS: Normal ST-T: Other (Nonspecific ST-T changes throughout.) QT: Normal Comparison: No Change (No real change from EKG performed on 09/01/2018 except QTc is no longer prolonged.) Course - Orders/Labs/Meds Orders: Active Orders 24 hr Category Date Time Status EKG Documentation Completion [RC] ASDIRECTED Care 12/20/18 14:34 Active Insert Urinary Catheter [OM.PC] Q24H Care 12/20/18 14:45 Ordered Urinary Catheter Assessment [RC] QSHIFT Care 12/20/18 14:35 Active Chest 1V Frontal [CR] Stat Exams 12/20/18 16:28 Taken CULTURE URINE [RM] Stat Lab 12/20/18 14:35 Ordered UA W/MICROSCOPIC [URIN] Stat Lab 12/20/18 14:33 Ordered Sodium Chloride 0.9% [Normal Saline] 1,000 ml Med 12/20/18 14:45 Active IV ASDIRECTED EKG 12 Lead [EK] Routine Ther 12/20/18 14:33 Ordered Medication Orders Sodium Chloride (Normal Saline) 1,000 mls @ 150 mls/hr IV ASDIRECTED ERICH Last Admin: 12/20/18 17:15 Dose: 150 mls/hr Labs: Laboratory Tests 12/20/18 12/20/18 12/20/18 Range/Units 14:44 14:45 14:45 WBC 13.9 H (4.5-12.0) X10-3/uL RBC 5.27 H (3.23-5.20) x10(6)uL Hgb 16.8 H (11.5-15.5) g/dL Hct 51.1 (30.0-51.3) % MCV 97.1 H (80-96) fL MCH 31.8 (27.7-33.6) pg MCHC 32.8 (32.2-35.4) g/dL RDW 12.3 (11.5-15.5) % Plt Count 130 (125-369) X10(3)uL MPV 9.8 (7.4-10.4) fL Add Manual Diff Yes Neutrophils % (Manual) 82 (46-82) % Lymphocytes % (Manual) 9 L (13-37) % Monocytes % (Manual) 9 (4-12) % POC VBG pH (7.31-7.41) POC VBG pCO2 (41-51) mmHG POC VBG HCO3 (23-28) mmol/L POC VBG Total CO2 (24-29) mmol/L POC VBG Base Excess (-2-3) mmol/L Sodium 128 L D (135-145) mmol/L Potassium 3.3 L D (3.5-5.3) mmol/L Chloride 83 L* D (100-110) mmol/L Carbon Dioxide 20 L (21-32) mmol/L BUN 62 H D (7-18) mg/dL Creatinine 1.4 H (0.55-1.02) mg/dL Est Cr Clr Drug Dosing TNP Estimated GFR (MDRD) 39 L (>60) BUN/Creatinine Ratio 44.3 H (9-20) Glucose 287 H D (80-116) mg/dL Lactic Acid (0.4-2.2) mmol/L Calcium 10.0 (8.6-10.2) mg/dL Magnesium 2.1 (1.8-2.5) mg/dL Total Bilirubin 2.7 H (0.1-1.3) mg/dL AST 60 H D (5-25) IU/L ALT 58 H D (12-36) U/L Alkaline Phosphatase 163 H (56-112) IU/L Troponin I (<0.017-0.056) ng/mL C-Reactive Protein (0.5-0.9) mg/dL Total Protein 8.7 H (6.0-8.0) g/dL Albumin 4.1 (3.5-5.2) g/dL Globulin 4.6 g/dL Albumin/Globulin Ratio 0.9 Lipase (73-393) U/L Ethyl Alcohol < 0.03 (<0.03) % 12/20/18 12/20/18 12/20/18 Range/Units 14:45 14:45 14:47 WBC (4.5-12.0) X10-3/uL RBC (3.23-5.20) x10(6)uL Hgb (11.5-15.5) g/dL Hct (30.0-51.3) % MCV (80-96) fL MCH (27.7-33.6) pg MCHC (32.2-35.4) g/dL RDW (11.5-15.5) % Plt Count (125-369) X10(3)uL MPV (7.4-10.4) fL Add Manual Diff Neutrophils % (Manual) (46-82) % Lymphocytes % (Manual) (13-37) % Monocytes % (Manual) (4-12) % POC VBG pH 7.45 H (7.31-7.41) POC VBG pCO2 32.2 L (41-51) mmHG POC VBG HCO3 22.3 L (23-28) mmol/L POC VBG Total CO2 23 L (24-29) mmol/L POC VBG Base Excess -2 (-2-3) mmol/L Sodium (135-145) mmol/L Potassium (3.5-5.3) mmol/L Chloride (100-110) mmol/L Carbon Dioxide (21-32) mmol/L BUN (7-18) mg/dL Creatinine (0.55-1.02) mg/dL Est Cr Clr Drug Dosing Estimated GFR (MDRD) (>60) BUN/Creatinine Ratio (9-20) Glucose (80-116) mg/dL Lactic Acid 4.6 H (0.4-2.2) mmol/L Calcium (8.6-10.2) mg/dL Magnesium (1.8-2.5) mg/dL Total Bilirubin (0.1-1.3) mg/dL AST (5-25) IU/L ALT (12-36) U/L Alkaline Phosphatase (56-112) IU/L Troponin I < 0.017 L (<0.017-0.056) ng/mL C-Reactive Protein 5.4 H* (0.5-0.9) mg/dL Total Protein (6.0-8.0) g/dL Albumin (3.5-5.2) g/dL Globulin g/dL Albumin/Globulin Ratio Lipase 694 H (73-393) U/L Ethyl Alcohol (<0.03) % Meds: Medications Generic Name Dose Route Start Last Admin Trade Name Freq PRN Reason Stop Dose Admin Sodium Chloride 1,000 mls @ 150 mls/hr 12/20/18 14:45 12/20/18 17:15 Normal Saline IV 150 mls/hr ASDIRECTED ERICH Administration Discontinued Medications Generic Name Dose Route Start Last Admin Trade Name Freq PRN Reason Stop Dose Admin Promethazine HCl 12.5 mg/ 50.5 mls @ 200 mls/hr 12/20/18 14:37 12/20/18 15:56 Sodium Chloride IV 12/20/18 14:52 200 mls/hr ONETIME ONE Administration Sodium Chloride 1,000 mls @ 999 mls/hr 12/20/18 14:37 12/20/18 15:45 Normal Saline IV 12/20/18 15:37 999 mls/hr .BOLUS ONE Administration - Radiology Interpretation Free Text/Narrative:: Portable chest x-ray shows no acute disease. - Re-Assessments/Exams Free Text/Narrative Re-Assessment/Exam: 12/20/18 15:52: The patient has just had an IV established by anesthesia staff. Her blood tests are consistent with fairly severe dehydration. We will begin giving her IV normal saline as a bolus. She will also be given Phenergan IV. I will also nursing staff place a De León catheter monitor the patient's resuscitation more closely. 12/20/18 16:40: The patient refused the De León catheter placement. She does still produce no urine. She has received approximately 500 mL's of normal saline IV as her IV was only a 24 [place]. She continues to have a pulse rate in the 140s. Her blood pressure is 90-100 systolic. She will need admission and there are no beds available at [facility]. The patient has been cared for at [facility] in the past and the family would wish her to go there. I will call and discuss her case with the doctors at [facility] in [place]. 12/20/18 17:00: I discussed patient's case with Dr. Jamil, hospitalist at [facility] in [place], and she will accept the patient in transfer. She requests that we continues to give the patient IV fluids. The patient will be transferred via ambulance to [facility] in [place] for direct admission. The patient and the are in agreement with the plans for transfer. Departure - Departure Time of Disposition: 17:30 Disposition: DC/Tfer to [facility] 02 Condition: Fair (Guarded) Clinical Impression: Severe dehydration, Intractable vomiting with nausea, Hyperglycemia Abdominal pain Qualifiers: Abdominal location: generalized Qualified Code(s): R10.84 - Generalized abdominal pain Pancreatitis, alcoholic, acute Qualifiers: Acute pancreatitis complication: unspecified Qualified Code(s): K85.20 - Alcohol induced acute pancreatitis without necrosis or infection Syncope Qualifiers: Syncope type: unspecified Qualified Code(s): R55 - Syncope and collapse - Discharge Information Referrals: Rocco Gonsales MD [Primary Care Provider] - - My Orders Last 24 Hours: My Active Orders 12/20/18 14:33 UA W/MICROSCOPIC [URIN] Stat EKG 12 Lead [EK] Routine 12/20/18 14:34 EKG Documentation Completion [RC] ASDIRECTED 12/20/18 14:35 Urinary Catheter Assessment [RC] QSHIFT CULTURE URINE [RM] Stat 12/20/18 14:45 Insert Urinary Catheter [OM.PC] Q24H Sodium Chloride 0.9% [Normal Saline] 1,000 ml IV ASDIRECTED 12/20/18 16:28 Chest 1V Frontal [CR] Stat - Assessment/Plan Last 24 Hours: My Active Orders 12/20/18 14:33 UA W/MICROSCOPIC [URIN] Stat EKG 12 Lead [EK] Routine 12/20/18 14:34 EKG Documentation Completion [RC] ASDIRECTED 12/20/18 14:35 Urinary Catheter Assessment [RC] QSHIFT CULTURE URINE [RM] Stat 12/20/18 14:45 Insert Urinary Catheter [OM.PC] Q24H Sodium Chloride 0.9% [Normal Saline] 1,000 ml IV ASDIRECTED 12/20/18 16:28 Chest 1V Frontal [CR] Stat
--- NOTE | 2018-12-20 15:34 | PCM.SN ---
- Free Text/Narrative Note: ANESTHESIA SERVICE Date: 12/20/2018 Time: 1505 to 1517 Procedure: Peripheral venous Access I was called by the ED physician to obtain peripheral venous access. This patient has a long history of poor venous access. Upon arrival, I found this patient lethargic and dehydrated. I attempted once on the right distal forearm without success [the vein ruptured with advancement]. I found a vein on her left mid-anterior forearm and prepped the area with alcohol wipes X 2. I inserted a 24 Ga. X 0.75 In. BD Insyte Autog[employer] needle X 1 attempt with easy advancement of the catheter. I flushed the vein with 10 ml' s of normal saline easily. A Opsite dressing was applied and she tolerated this insertion well. SAV Finch CRNA
[2018-12-20] MEDS: Sodium Chloride 0.9% 1,000 ML IV ONE (15:45)
[2018-12-20] MEDS: Promethazine 12.5 MG in Sodium Chloride 0.9% 50 ML IV ONE (15:56)
[2018-12-20] MEDS: Sodium Chloride 0.9% 1,000 ML IV SCH (17:15)
[2018-12-20 22:02] VITALS: BP 97/44; PULSE 134
== END 2018-12-20 17:45 ==
LOC: FB.ED 14:08
DX: E86.0 Dehydration (principal); K85.20 Alcohol induced acute pancreatitis without necrosis or infection; R55 Syncope and collapse; R73.9 Hyperglycemia, unspecified; I25.2 Old myocardial infarction; F41.0 Panic disorder [episodic paroxysmal anxiety]; Z79.899 Other long term (current) drug therapy
CPT/HCPCS: 36415; 71045; 80053; 80320; 82803; 83605; 83690; 83735; 84484; 85025; 86140; 93005; 96361; 96365; 99285; J2550; J7030; J7050; G0480

== ENCOUNTER 2019-07-27 09:20 | Emergency (ER) | payer MEDICAID ==
[2019-07-27] MEDS ORDERED: Propofol 200 MG/20 ML SDV IV ONE (09:21)
[2019-07-27] MEDS: EPINEPHrine 1:10,000 1 MG/10 ML Syringe IVPUSH ONE ×2 (09:35→09:42)
[2019-07-27] MEDS: Sodium Chloride 0.9% 1,000 ML IV ONE (09:43)
[2019-07-27] MEDS: Norepinephrine 4 MG in Dextrose 5% in Water 246 ML IV SCH ×2 (09:44)
[2019-07-27] MEDS: Sodium Bicarbonate 8.4% 50 MEQ/50 ML Syringe IVPUSH ONE (10:15)
[2019-07-27] MEDS: NACL IV ONE (10:33)
[2019-07-27] MEDS: THIAMINE IV ONE (10:33)
[2019-07-27] MEDS: DEXTROSE IV ONE (10:33)
[2019-07-27] MEDS: WATER IV ONE ×2 (10:48)
[2019-07-27] MEDS: DEXTROSE 5% IV ONE ×2 (10:48)
[2019-07-27] MEDS: SODIUM BICARBONATE IV ONE ×2 (10:48)
--- NOTE | 2019-07-27 13:20 | EDM.PDOC ---
ED HPI GENERAL MEDICAL PROBLEM - General Stated Complaint: unresponsiveness, respiratory problems Time Seen by Provider: 07/27/19 09:22 Source of Information: Reports: Family History Limitations: Reports: Altered Mental Status - History of Present Illness INITIAL COMMENTS - FREE TEXT/NARRATIVE: Patient presented to the ED via a private vehicle because of unresponsive episode and respiratory difficulty. Per patient's Carmen has a history of alcoholism and has been drinking Friday. She was ok Friday until at about 11 pm when she started to have nausea and vomiting which persisted throughout Friday. Patient's told her that he will bring her to the hospital but she refused. This morning when he went to check on her she was already unresponsive with some respiratory distress. At about 0920 during triage she was hypoxemic, and hypotensive. She was immediately put on 10 L O2 with a facial mask and NS 1 L bolus and Levophed drip was started. A decision was then made to intubate the patient and MAINTENANCE AIDE was notified- see [facility] Care notes and Code Blue Notes per [facility] for details of resuscitation. [place] [facility] team was also notified for transfer. - Related Data Allergies Allergy/AdvReac Type Severity Reaction Status Date / Time No Known Allergies Allergy Verified 09/01/18 08:15 Home Meds: Home Meds Nitroglycerin [Nitrostat] 0.4 mg SL ASDIRECTED PRN 04/24/17 [History] hydrOXYzine pamoate [Hydroxyzine Pamoate] 25 mg PO TID PRN 04/24/17 [History] Multivitamins [Tab-A-[place]] 1 tab PO DAILY tablet 05/26/17 [Rx] Thiamine [Vitamin B-1] 100 mg PO DAILY #30 tablet 05/26/17 [Rx] Acetaminophen [Tylenol] 650 mg PO Q4H PRN #100 tablet 12/15/17 [Rx] Magnesium Oxide 400 mg PO BIDAC #60 tablet 12/15/17 [Rx] Potassium Chloride [Klor-Con] 20 meq PO QID 1 Days #100 packet 12/15/17 [Rx] HYDROmorphone [Dilaudid] 2 mg IVPUSH Q3H PRN sdv 09/01/18 [Rx] LORazepam [Ativan] 1 mg IVPUSH Q4H PRN vial 09/01/18 [Rx] NS + KCl 20mEq/L [Normal Saline with 20 mEq KCl] 1 ml IV Q4H bag 09/01/18 [Rx] Ondansetron [Zofran] 4 mg IVPUSH Q4H PRN vial 09/01/18 [Rx] Sodium Chloride 0.9% [Saline Flush] 10 ml FLUSH ASDIRECTED PRN syringe [Rx] Past Medical History HEENT History: Reports: Cataract, Impaired Vision Cardiovascular History: Reports: Angina, Arrhythmia (Palpitations), [place] Other Cardiovascular History: Pt reports palpitations Respiratory History: Reports: SOB Gastrointestinal History: Reports: Cholelithiasis, Cirrhosis, Gastritis, GERD Genitourinary History: Reports: UTI, Recurrent 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 Has bilat foot drop. - Infectious Disease History Infectious Disease History: Reports: Chicken Pox Other Infectious Disease History: Unknown. - Past Surgical History HEENT Surgical History: Reports: Cataract Surgery, Tonsillectomy GI Surgical History: Reports: Appendectomy Dermatological Surgical History: Reports: Skin Graft Social & Family History - Family History Family Medical History: Unobtainable - Caffeine Use Caffeine Use: Reports: None Other Caffeine Use: Unknown. Patient poor historian at this time. Caffeine Use Comment: Does not use caffeine regularly - Living Situation & Occupation Living situation: Reports: (Here with her ) ED ROS GENERAL - Review of Systems Review Of Systems: Unable To Obtain (patient is unresponsive) Reason Not Obtained: patient is unresponsive Constitutional: Reports: Fever, Chills ED EXAM, CPR - Physical Exam Exam: See Below Limited By: Respiratory Distress, Altered Mental Status General Appearance: Obtunded Eye Exam: Bilateral Eye: Other (pupils are both non-reactive to light) Ears: Normal External Exam Nose: Normal Inspection, Normal Mucosa Throat/Mouth: Normal Inspection Head: Atraumatic, Normocephalic Respiratory Chest: Rales, Rhonchi Cardiovascular: Other (on PEA) GI/Abdominal Exam: Normal Bowel Sounds Extremities: Normal Inspection Neurological: Unresponsive Skin Exam: Cool Course - Vital Signs Text/Narrative:: see result details of resuscitation -[facility] -[facility] - Orders/Labs/Meds Orders: Active Orders 24 hr Category Date Time Status EKG Documentation Completion [RC] ASDIRECTED Care 07/27/19 09:59 Active Chest 1V Frontal [CR] Stat Exams 07/27/19 11:00 Taken Chest 1V Frontal [CR] Stat Exams 07/27/19 11:00 Taken Norepinephrine [Levophed] 4 mg Med 07/27/19 09:45 Active Dextrose 5% in Water 246 ml IV TITRATE EKG 12 Lead [EK] Routine Ther 07/27/19 09:58 Ordered Medication Orders Norepinephrine Bitartrate 4 mg (/ Dextrose/Water) 250 mls @ 7.5 mls/hr IV TITRATE ERICH; Protocol Labs: Laboratory Tests 07/27/19 07/27/19 07/27/19 Range/Units 09:25 09:25 09:25 WBC 15.8 H (4.5-12.0) X10-3/uL RBC 5.32 H (3.23-5.20) x10(6)uL Hgb 16.6 H (11.5-15.5) g/dL Hct 52.9 H (30.0-51.3) % MCV 99.5 H (80-96) fL MCH 31.3 (27.7-33.6) pg MCHC 31.4 L (32.2-35.4) g/dL RDW 13.7 (11.5-15.5) % Plt Count 170 (125-369) X10(3)uL MPV 9.0 (7.4-10.4) fL Add Manual Diff Yes Neutrophils % (Manual) 77 (46-82) % Band Neutrophils % 7 H (0-6) % Lymphocytes % (Manual) 6 L (13-37) % Monocytes % (Manual) 5 (4-12) % Metamyelocytes % 5 H (0-0) % ABG pH (7.35-7.45) ABG pCO2 (35-45) mmHg ABG pO2 (83-108) mmHg ABG HCO3 (22-26) mmol/L ABG O2 Saturation (96-97) % ABG Base Excess (-2-2) Blas Test O2 Delivery Device Sodium 138 D (135-145) mmol/L Potassium 4.3 D (3.5-5.3) mmol/L Chloride 88 L* D (100-110) mmol/L Carbon Dioxide 9 L* (21-32) mmol/L BUN 26 H D (7-18) mg/dL Creatinine 1.9 H (0.55-1.02) mg/dL Est Cr Clr Drug Dosing TNP Estimated GFR (MDRD) 28 L (>60) BUN/Creatinine Ratio 13.7 (9-20) Glucose 234 H (80-116) mg/dL Calcium 9.9 (8.6-10.2) mg/dL Magnesium (1.8-2.5) mg/dL Total Bilirubin 2.2 H (0.1-1.3) mg/dL AST 94 H D (5-25) IU/L ALT 82 H D (12-36) U/L Alkaline Phosphatase 199 H (56-112) IU/L Troponin I (4.0-60.3) pg/mL NT-Pro-B Natriuret Pep (<=125) pg/mL Total Protein 10.1 H (6.0-8.0) g/dL Albumin 5.0 (3.5-5.2) g/dL Globulin 5.1 g/dL Albumin/Globulin Ratio 1.0 Urine Opiates Screen (NEGATIVE) Ur Oxycodone Screen (NEGATIVE) Ur Propoxyphene Screen (NEGATIVE) Ur Barbituates Screen (NEGATIVE) Ur Tricyclics Screen (NEGATIVE) Ur Phencyclidine Scrn (NEGATIVE) Ur Amphetamine Screen (NEGATIVE) Urine MDMA Screen (NEGATIVE) U Benzodiazepines Scrn (NEGATIVE) U Cocaine Metab Screen (NEGATIVE) U Marijuana (THC) Screen (NEGATIVE) Ethyl Alcohol < 0.03 (<0.03) % 07/27/19 07/27/19 07/27/19 Range/Units 09:25 09:27 10:00 WBC (4.5-12.0) X10-3/uL RBC (3.23-5.20) x10(6)uL Hgb (11.5-15.5) g/dL Hct (30.0-51.3) % MCV (80-96) fL MCH (27.7-33.6) pg MCHC (32.2-35.4) g/dL RDW (11.5-15.5) % Plt Count (125-369) X10(3)uL MPV (7.4-10.4) fL Add Manual Diff Neutrophils % (Manual) (46-82) % Band Neutrophils % (0-6) % Lymphocytes % (Manual) (13-37) % Monocytes % (Manual) (4-12) % Metamyelocytes % (0-0) % ABG pH (7.35-7.45) ABG pCO2 (35-45) mmHg ABG pO2 (83-108) mmHg ABG HCO3 (22-26) mmol/L ABG O2 Saturation (96-97) % ABG Base Excess (-2-2) Blas Test O2 Delivery Device Sodium (135-145) mmol/L Potassium (3.5-5.3) mmol/L Chloride (100-110) mmol/L Carbon Dioxide (21-32) mmol/L BUN (7-18) mg/dL Creatinine (0.55-1.02) mg/dL Est Cr Clr Drug Dosing Estimated GFR (MDRD) (>60) BUN/Creatinine Ratio (9-20) Glucose (80-116) mg/dL Calcium (8.6-10.2) mg/dL Magnesium 2.0 (1.8-2.5) mg/dL Total Bilirubin (0.1-1.3) mg/dL AST (5-25) IU/L ALT (12-36) U/L Alkaline Phosphatase (56-112) IU/L Troponin I 39.5 (4.0-60.3) pg/mL NT-Pro-B Natriuret Pep 51466 H* (<=125) pg/mL Total Protein (6.0-8.0) g/dL Albumin (3.5-5.2) g/dL Globulin g/dL Albumin/Globulin Ratio Urine Opiates Screen Negative (NEGATIVE) Ur Oxycodone Screen Negative (NEGATIVE) Ur Propoxyphene Screen Negative (NEGATIVE) Ur Barbituates Screen Negative (NEGATIVE) Ur Tricyclics Screen Negative (NEGATIVE) Ur Phencyclidine Scrn Negative (NEGATIVE) Ur Amphetamine Screen Negative (NEGATIVE) Urine MDMA Screen Negative (NEGATIVE) U Benzodiazepines Scrn Negative (NEGATIVE) U Cocaine Metab Screen Negative (NEGATIVE) U Marijuana (THC) Screen Negative (NEGATIVE) Ethyl Alcohol (<0.03) % 07/27/19 Range/Units 10:27 WBC (4.5-12.0) X10-3/uL RBC (3.23-5.20) x10(6)uL Hgb (11.5-15.5) g/dL Hct (30.0-51.3) % MCV (80-96) fL MCH (27.7-33.6) pg MCHC (32.2-35.4) g/dL RDW (11.5-15.5) % Plt Count (125-369) X10(3)uL MPV (7.4-10.4) fL Add Manual Diff Neutrophils % (Manual) (46-82) % Band Neutrophils % (0-6) % Lymphocytes % (Manual) (13-37) % Monocytes % (Manual) (4-12) % Metamyelocytes % (0-0) % ABG pH 7.08 L* (7.35-7.45) ABG pCO2 27 L (35-45) mmHg ABG pO2 98 (83-108) mmHg ABG HCO3 8 L (22-26) mmol/L ABG O2 Saturation 94 L (96-97) % ABG Base Excess -22.1 L (-2-2) Blas Test N/a O2 Delivery Device T-piece Sodium (135-145) mmol/L Potassium (3.5-5.3) mmol/L Chloride (100-110) mmol/L Carbon Dioxide (21-32) mmol/L BUN (7-18) mg/dL Creatinine (0.55-1.02) mg/dL Est Cr Clr Drug Dosing Estimated GFR (MDRD) (>60) BUN/Creatinine Ratio (9-20) Glucose (80-116) mg/dL Calcium (8.6-10.2) mg/dL Magnesium (1.8-2.5) mg/dL Total Bilirubin (0.1-1.3) mg/dL AST (5-25) IU/L ALT (12-36) U/L Alkaline Phosphatase (56-112) IU/L Troponin I (4.0-60.3) pg/mL NT-Pro-B Natriuret Pep (<=125) pg/mL Total Protein (6.0-8.0) g/dL Albumin (3.5-5.2) g/dL Globulin g/dL Albumin/Globulin Ratio Urine Opiates Screen (NEGATIVE) Ur Oxycodone Screen (NEGATIVE) Ur Propoxyphene Screen (NEGATIVE) Ur Barbituates Screen (NEGATIVE) Ur Tricyclics Screen (NEGATIVE) Ur Phencyclidine Scrn (NEGATIVE) Ur Amphetamine Screen (NEGATIVE) Urine MDMA Screen (NEGATIVE) U Benzodiazepines Scrn (NEGATIVE) U Cocaine Metab Screen (NEGATIVE) U Marijuana (THC) Screen (NEGATIVE) Ethyl Alcohol (<0.03) % Meds: Medications Generic Name Dose Route Start Last Admin Trade Name Freq PRN Reason Stop Dose Admin Norepinephrine Bitartrate 4 mg 250 mls @ 7.5 mls/hr 07/27/19 09:45 / Dextrose/Water IV TITRATE ERICH Protocol 2 MCG/MIN Discontinued Medications Generic Name Dose Route Start Last Admin Trade Name Freq PRN Reason Stop Dose Admin Thiamine HCl 100 mg/ Dextrose/ 1,001 mls @ 999 mls/hr 07/27/19 10:00 Sodium Chloride IV 07/27/19 11:00 ONETIME ONE Sodium Bicarbonate 100 meq/ 350 mls @ 175 mls/hr 07/27/19 10:45 Dextrose/Water IV 07/27/19 12:44 ONETIME ONE Departure - Departure Time of Disposition: 09:30 Disposition: DC/Tfer to Acute Hospital 02 Condition: Critical Clinical Impression: Respiratory failure, Dehydration, KIKI (acute kidney injury) - Discharge Information Referrals: PCP,None [Primary Care Provider] - - My Orders Last 24 Hours: My Active Orders 07/27/19 09:45 Norepinephrine [Levophed] 4 mg Dextrose 5% in Water 246 ml IV TITRATE 07/27/19 09:58 EKG 12 Lead [EK] Routine 07/27/19 09:59 EKG Documentation Completion [RC] ASDIRECTED 07/27/19 11:00 Chest 1V Frontal [CR] Stat Chest 1V Frontal [CR] Stat - Assessment/Plan Last 24 Hours: My Active Orders 07/27/19 09:45 Norepinephrine [Levophed] 4 mg Dextrose 5% in Water 246 ml IV TITRATE 07/27/19 09:58 EKG 12 Lead [EK] Routine 07/27/19 09:59 EKG Documentation Completion [RC] ASDIRECTED 07/27/19 11:00 Chest 1V Frontal [CR] Stat Chest 1V Frontal [CR] Stat
[2019-07-27 13:25] VITALS: BP 82/42; PULSE 99
== END 2019-07-27 11:13 ==
LOC: FB.ED 09:20
DX: J96.90 Respiratory failure, unspecified, unspecified whether with hypoxia or hypercapnia (principal); E86.0 Dehydration; N17.9 Acute kidney failure, unspecified; I25.2 Old myocardial infarction; F41.9 Anxiety disorder, unspecified; Z79.899 Other long term (current) drug therapy
CPT/HCPCS: 36415; 36600; 71045; 80053; 80305-QW; 80307; 82803; 82962; 83735; 83880; 84484; 85025; 93005; 96365; 96367; 96368; 96376; 99284-25; J0171; J2704; J3411; J3490; J7030; J7060

== ENCOUNTER 2019-10-30 21:17 | Emergency (ER) | payer MEDICAID ==
--- NOTE | 2019-10-30 21:26 | EDM.PDOC ---
ED HPI GENERAL MEDICAL PROBLEM - General Stated Complaint: THROWING UP Time Seen by Provider: 10/30/19 21:25 Source of Information: Reports: Patient History Limitations: Reports: No Limitations - History of Present Illness INITIAL COMMENTS - FREE TEXT/NARRATIVE: 54-year-old female who reports onset of vomiting yesterday morning. She reports she has vomited about 25 times since then and it has been brown and somewhat bilious. She now has tongue pain and burning that she rates as a 10/10 that his made worse by throwing up. She has had no diarrhea. She has had generalized weakness. She has been unable to "keep anything down". She reports that she has been trying to drink liquids such chest a morning but has been unable. She does drink alcohol daily and reports that she has not been able to keep any alcohol down for the past 36 hours as well. She denies any abdominal pain. She denies any chest pain. She denies any difficulty breathing. She does feel weak all over. She is brought to the emergency department via private vehicle by her daughter. She apparently spends most of her days in a recliner and drinking alcohol. She has very little physical activity and is not ambulatory and requires assistance for any of her activities of daily living. She has had no fevers or chills. She has had urine output 1 today. There is no hematuria or dysuria noted. No cough. No nasal congestion. There are no other associated signs or symptoms. There are no other modifying factors. Onset: Other (Yesterday morning) Duration: Constant Location: Reports: Other (Tongue and throat from throwing up) Quality: Reports: Burning, Sharp Severity: Moderate (to severe) Improves with: Reports: None Worsens with: Reports: None Context: Reports: Other (As above) Associated Symptoms: Reports: Nausea/Vomiting, Weakness, Other (As above.) Treatments EBAY RESELLER: Reports: Other (see below) (Nothing.) Abdominal Pain Score (Numeric/FACES): 10 - Related Data Allergies Allergy/AdvReac Type Severity Reaction Status Date / Time No Known Allergies Allergy Verified 09/01/18 08:15 Home Meds: Home Meds Nitroglycerin [Nitrostat] 0.4 mg SL ASDIRECTED PRN 04/24/17 [History] hydrOXYzine pamoate [Hydroxyzine Pamoate] 25 mg PO TID PRN 04/24/17 [History] Multivitamins [Tab-A-Shelby] 1 tab PO DAILY tablet 05/26/17 [Rx] Thiamine [Vitamin B-1] 100 mg PO DAILY #30 tablet 05/26/17 [Rx] Acetaminophen [Tylenol] 650 mg PO Q4H PRN #100 tablet 12/15/17 [Rx] Magnesium Oxide 400 mg PO BIDAC #60 tablet 12/15/17 [Rx] Potassium Chloride [Klor-Con] 20 meq PO QID 1 Days #100 packet 12/15/17 [Rx] HYDROmorphone [Dilaudid] 2 mg IVPUSH Q3H PRN sdv 09/01/18 [Rx] LORazepam [Ativan] 1 mg IVPUSH Q4H PRN vial 09/01/18 [Rx] NS + KCl 20mEq/L [Normal Saline with 20 mEq KCl] 1 ml IV Q4H bag 09/01/18 [Rx] Ondansetron [Zofran] 4 mg IVPUSH Q4H PRN vial 09/01/18 [Rx] Sodium Chloride 0.9% [Saline Flush] 10 ml FLUSH ASDIRECTED PRN syringe 09/01/18 [Rx] Past Medical History HEENT History: Reports: Cataract, Impaired Vision Cardiovascular History: Reports: Angina, Arrhythmia (Palpitations), IA Other Cardiovascular History: Pt reports palpitations Gastrointestinal History: Reports: Cholelithiasis, Cirrhosis, Gastritis, GERD Genitourinary History: Reports: UTI, Recurrent Other COOKER CASING History: [id number] Neurological History: Reports: Neuropathy, Peripheral Psychiatric History: Reports: Addiction, Anxiety, Panic Attack, Psych Hospitalization(s) Other Psychiatric History: Hx ETOH abuse Hematologic History: Reports: Anemia Dermatologic History: Reports: Other (See Below) Other Dermatologic History: severe goel bite to hands bilat & feet. Has bilat foot drop. - Infectious Disease History Infectious Disease History: Reports: Chicken Pox Other Infectious Disease History: Unknown. - Past Surgical History HEENT Surgical History: Reports: Cataract Surgery, Tonsillectomy GI Surgical History: Reports: Appendectomy, EGD Dermatological Surgical History: Reports: Skin Graft Social & Family History - Tobacco Use Smoking Status *Q: Unknown Ever Smoked (Nonsmoker) - Caffeine Use Caffeine Use: Reports: None Other Caffeine Use: Unknown. Patient poor historian at this time. Caffeine Use Comment: Does not use caffeine regularly - Alcohol Use Alcohol Use History: Yes Alcohol Use Frequency: Daily (Heavy alcohol use) - Living Situation & Occupation Living situation: Reports: Occupation: Unemployed Social History Comment: She is brought to the emergency department today by her daughter. Her is at a fishing trip. ED ROS GENERAL - Review of Systems Review Of Systems: See Below Constitutional: Reports: Weakness HEENT: Reports: Throat Pain, Other (Tongue pain) Respiratory: Reports: No Symptoms Cardiovascular: Reports: No Symptoms Endocrine: Reports: Fatigue GI/Abdominal: Reports: Nausea, Vomiting : Reports: Other (Decreased urine output) Musculoskeletal: Reports: Back Pain (Which is chronic.) Skin: Reports: No Symptoms Neurological: Reports: Weakness Hematologic/Lymphatic: Reports: No Symptoms Immunologic: Reports: No Symptoms ED EXAM, GENERAL - Physical Exam Exam: See Below Exam Limited By: No Limitations General Appearance: Alert, Moderate Distress, Thin, Other (She is awake, alert and appropriately responsive. She appears in some discomfort/distress.) Eye Exam: Bilateral Eye: EOMI, Normal Inspection, Other (Sclera are anicteric) Ears: Normal External Exam Ear Exam: Bilateral Ear: Auricle Normal Nose: Normal Inspection, Normal Mucosa, No Blood Throat/Mouth: Normal Voice, No Airway Compromise, Other (Dry mucous membranes. Posterior pharyngeal and tonsillar erythema.) Head: Atraumatic, Normocephalic Neck: Normal Inspection, Supple, Non-Tender, Full Range of Motion Respiratory/Chest: No Respiratory Distress, Lungs Clear, Normal Breath Sounds, No Accessory Muscle Use, Chest Non-Tender Cardiovascular: Normal Peripheral Pulses, No Murmur, Tachycardia Peripheral Pulses: 2+: Radial (L), Radial (R) GI/Abdominal: Normal Bowel Sounds, Soft, Non-Tender, No Mass Back Exam: Normal Inspection, Full Range of Motion Extremities: Normal Inspection, Normal Range of Motion, Non-Tender, No Pedal Edema, Normal Capillary Refill Neurological: Alert, Oriented, CN II-XII Intact, Other (Moves all 4 extremities well. There is bilateral foot drop that is chronic.) Psychiatric: Anxious Skin Exam: Warm, Dry, Intact, Normal Color, No Rash EKG INTERPRETATION EKG Date: 10/30/19 Time: 22:00 Rhythm: Other (Sinus tachycardia) Rate (Beats/Min): [address] [place]: Normal P-Wave: Present QRS: Normal ST-T: Normal QT: Prolonged (Slightly prolonged QTc.) Comparison: No Change (No change from EKG performed on 12/20/2018.) Course - Vital Signs Last Recorded V/S: Last Vital Signs Temp 36.8 C 10/30/19 21:20 Pulse 131 H 10/30/19 21:20 Resp 20 10/30/19 21:20 BP 100/66 10/30/19 21:20 Pulse Ox 100 10/30/19 21:20 - Orders/Labs/Meds Orders: Active Orders 24 hr Category Date Time Status EKG Documentation Completion [RC] ASDIRECTED Care 10/30/19 21:34 Active Insert Urinary Catheter [OM.PC] Stat Care 10/30/19 22:32 Ordered Urinary Catheter Assessment [RC] QSHIFT Care 10/30/19 22:33 Active Chest 1V Frontal [CR] Stat Exams 10/30/19 22:32 Ordered UA W/MICROSCOPIC [URIN] Stat Lab 10/30/19 21:33 Ordered Sodium Chloride 0.9% [Normal Saline] 1,000 ml Med 10/30/19 21:45 Active IV .BOLUS Sodium Chloride 0.9% [Saline Flush] Med 10/30/19 21:33 Active 10 ml FLUSH ASDIRECTED PRN Peripheral IV Insertion Adult [OM.PC] Routine Oth 10/30/19 21:33 Ordered EKG 12 Lead [EK] Routine Ther 10/30/19 21:33 Ordered Medication Orders Sodium Chloride (Normal Saline) 1,000 mls @ 999 mls/hr IV .BOLUS ERICH Last Admin: 10/30/19 22:09 Dose: 999 mls/hr Documented by: JOE Sodium Chloride (Saline Flush) 10 ml FLUSH ASDIRECTED PRN PRN Reason: Keep Vein Open Last Admin: 10/30/19 22:20 Dose: 10 ml Documented by: JOE Labs: Laboratory Tests 10/30/19 10/30/19 10/30/19 Range/Units 22:00 22:00 22:00 WBC 13.2 H (4.5-12.0) X10-3/uL RBC 5.15 (3.23-5.20) x10(6)uL Hgb 15.9 H (11.5-15.5) g/dL Hct 48.7 (30.0-51.3) % MCV 94.5 (80-96) fL MCH 30.9 (27.7-33.6) pg MCHC 32.7 (32.2-35.4) g/dL RDW 13.4 (11.5-15.5) % Plt Count 238 (125-369) X10(3)uL MPV 8.0 (7.4-10.4) fL Add Manual Diff Yes Neutrophils % (Manual) 87 H (46-82) % Band Neutrophils % 1 (0-6) % Lymphocytes % (Manual) 5 L (13-37) % Monocytes % (Manual) 7 (4-12) % Sodium 141 (135-145) mmol/L Potassium 3.1 L D (3.5-5.3) mmol/L Chloride 91 L (100-110) mmol/L Carbon Dioxide 10 L* (21-32) mmol/L BUN 9 D (7-18) mg/dL Creatinine 1.1 H (0.55-1.02) mg/dL Est Cr Clr Drug Dosing 57.18 mL/min Estimated GFR (MDRD) 52 L (>60) BUN/Creatinine Ratio 8.2 L (9-20) Glucose 145 H D (80-116) mg/dL Lactic Acid (0.4-2.0) mmol/L Calcium 9.4 (8.6-10.2) mg/dL Magnesium 1.7 L (1.8-2.5) mg/dL Total Bilirubin 1.3 (0.1-1.3) mg/dL AST 183 H* D (5-25) IU/L ALT 82 H (12-36) U/L Alkaline Phosphatase 209 H (56-112) IU/L Troponin I (4.0-60.3) pg/mL Total Protein 9.6 H (6.0-8.0) g/dL Albumin 5.1 (3.5-5.2) g/dL Globulin 4.5 g/dL Albumin/Globulin Ratio 1.1 Lipase 298 (73-393) U/L Ethyl Alcohol < 0.03 (<0.03) % 10/30/19 10/30/19 Range/Units 22:00 22:00 WBC (4.5-12.0) X10-3/uL RBC (3.23-5.20) x10(6)uL Hgb (11.5-15.5) g/dL Hct (30.0-51.3) % MCV (80-96) fL MCH (27.7-33.6) pg MCHC (32.2-35.4) g/dL RDW (11.5-15.5) % Plt Count (125-369) X10(3)uL MPV (7.4-10.4) fL Add Manual Diff Neutrophils % (Manual) (46-82) % Band Neutrophils % (0-6) % Lymphocytes % (Manual) (13-37) % Monocytes % (Manual) (4-12) % Sodium (135-145) mmol/L Potassium (3.5-5.3) mmol/L Chloride (100-110) mmol/L Carbon Dioxide (21-32) mmol/L BUN (7-18) mg/dL Creatinine (0.55-1.02) mg/dL Est Cr Clr Drug Dosing mL/min Estimated GFR (MDRD) (>60) BUN/Creatinine Ratio (9-20) Glucose (80-116) mg/dL Lactic Acid 5.7 H* (0.4-2.0) mmol/L Calcium (8.6-10.2) mg/dL Magnesium (1.8-2.5) mg/dL Total Bilirubin (0.1-1.3) mg/dL AST (5-25) IU/L ALT (12-36) U/L Alkaline Phosphatase (56-112) IU/L Troponin I 587.2 H* (4.0-60.3) pg/mL Total Protein (6.0-8.0) g/dL Albumin (3.5-5.2) g/dL Globulin g/dL Albumin/Globulin Ratio Lipase (73-393) U/L Ethyl Alcohol (<0.03) % Meds: Medications Generic Name Dose Route Start Last Admin Trade Name Freq PRN Reason Stop Dose Admin Sodium Chloride 1,000 mls @ 999 mls/hr 10/30/19 21:45 10/30/19 22:09 Normal Saline IV 999 mls/hr .BOLUS ERICH Administration Sodium Chloride 10 ml 10/30/19 21:33 10/30/19 22:20 Saline Flush FLUSH 10 ml ASDIRECTED PRN Administration Keep Vein Open Discontinued Medications Generic Name Dose Route Start Last Admin Trade Name Aris PRN Reason Stop Dose Admin Aspirin 300 mg 10/30/19 23:19 Aspirin RECTAL 10/30/19 23:20 ONETIME ONE Ondansetron HCl 4 mg 10/30/19 21:34 10/30/19 22:01 Zochristi IVPUSH 10/30/19 21:35 4 mg ONETIME ONE Administration - Re-Assessments/Exams Free Text/Narrative Re-Assessment/Exam: 10/30/19 22:35: Patient with persistent tachycardia. Her potassium was somewhat low as well as her magnesium. Her troponin was elevated. She has a small IV and fluids are infusing. A De León was being ordered but the patient is adamantly refusing this. I have also ordered a lactic acid. I will also give the patient aspirin 300 mg [place]. We will have the TELEPHONE BETTING CLERK come in and try to establish another IV. The patient appears to be having an and NSTEMI and patient will need cardiology specially services which are not available at [facility] [place]. I will try to contact the and talk to him about this and get his permission. The patient is not really sure which hospital she would be transferred to but she is agreeable to transfer. 10/30/19 22:55: I discussed patient's case with the patient's and he has directed me to discuss her case with the doctors at [facility] in [place]. He is in agreement with the plan for transfer as well. Anesthesia is here starting an IV. The patient has remained hemodynamically stable with a blood pressure of 100 systolic and a pulse rate in the 130s. 10/30/19 23:33: I discussed patient's case with Dr. Worley, hospitalist at [facility] in [place], and he has agreed to accept the patient in transfer. The patient did allow a De León catheter to be placed and there was no urine upon placing it. The patient's blood pressure at this point is 138/87 but her pulse rate is still in the 130s. We will continue IV fluid resuscitation with normal saline and close cardiac monitoring. The patient will be transferred via ALS ambulance service to [facility] in [place] for direct admission. The patient is in agreement with the plan for transfer. Departure - Departure Time of Disposition: 23:39 Disposition: DC/Tfer to Acute Hospital 02 Condition: Critical (Guarded) Clinical Impression: Non-STEMI (non-ST elevated myocardial infarction), Severe dehydration, Metabolic acidosis Vomiting Qualifiers: Vomiting type: unspecified Vomiting Intractability: intractable Nausea presence: with nausea Qualified Code(s): R11.2 - Nausea with vomiting, unspecified - Discharge Information Referrals: PCP,None [Primary Care Provider] - Critical Care Note - Critical Care Note Total Time (mins): 65 (Patient with tachycardia and attended immediately upon arrival. She was transferred to a cardiac room and placed on the threat monitoring analyst. She was monitored any relief for the first 65 minutes of her emergency department stay and remained hemodynamically stable through this time period.) Sepsis Event Note (ED) - Focused Exam Vital Signs: Vital Signs Temp Pulse Resp BP Pulse Ox 10/30/19 21:20 36.8 C 131 H 20 100/66 100 - My Orders Last 24 Hours: My Active Orders 10/30/19 21:33 UA W/MICROSCOPIC [URIN] Stat Sodium Chloride 0.9% [Saline Flush] 10 ml FLUSH ASDIRECTED PRN Peripheral IV Insertion Adult [OM.PC] Routine EKG 12 Lead [EK] Routine 10/30/19 21:34 EKG Documentation Completion [RC] ASDIRECTED 10/30/19 21:45 Sodium Chloride 0.9% [Normal Saline] 1,000 ml IV .BOLUS 10/30/19 22:32 Insert Urinary Catheter [OM.PC] Stat Chest 1V Frontal [CR] Stat 10/30/19 22:33 Urinary Catheter Assessment [RC] QSHIFT - Assessment/Plan Last 24 Hours: My Active Orders 10/30/19 21:33 UA W/MICROSCOPIC [URIN] Stat Sodium Chloride 0.9% [Saline Flush] 10 ml FLUSH ASDIRECTED PRN Peripheral IV Insertion Adult [OM.PC] Routine EKG 12 Lead [EK] Routine 10/30/19 21:34 EKG Documentation Completion [RC] ASDIRECTED 10/30/19 21:45 Sodium Chloride 0.9% [Normal Saline] 1,000 ml IV .BOLUS 10/30/19 22:32 Insert Urinary Catheter [OM.PC] Stat Chest 1V Frontal [CR] Stat 10/30/19 22:33 Urinary Catheter Assessment [RC] QSHIFT
[2019-10-30] MEDS ORDERED: Sodium Chloride 0.9% 10 ML Syringe FLUSH PRN (21:33)
[2019-10-30] MEDS ORDERED: Ondansetron 4 MG/2 ML SDV IVPUSH ONE (21:34)
[2019-10-30] MEDS: Sodium Chloride 0.9% 1,000 ML IV SCH ×2 (22:09→23:38)
[2019-10-30] MEDS ORDERED: Aspirin 300 MG Supp RECTAL ONE (23:19)
[2019-10-31 01:01] VITALS: BP 96/85; PULSE 132
== END 2019-10-31 00:19 ==
LOC: FB.ED 21:17
DX: E86.0 Dehydration (principal); I21.4 Non-ST elevation (NSTEMI) myocardial infarction; E87.2 Acidosis; Z90.89 Acquired absence of other organs
CPT/HCPCS: 36415; 51702; 71045; 80053; 80307; 81001; 83605; 83690; 83735; 84484; 85025; 93005; 96361; 96374; 99291; A9270; J2405; J7030; 36410; 93010; 99285

== ENCOUNTER 2020-05-18 03:26 | Inpatient (IN) | payer MEDICAID ==
[2020-05-18] MEDS ORDERED: Sodium Chloride 0.9% 10 ML Syringe FLUSH PRN ×2 (03:49→04:54)
[2020-05-18] MEDS ORDERED: LORazepam 2 MG/ML SDV IVPUSH STA (03:52)
[2020-05-18] MEDS ORDERED: Ondansetron 4 MG/2 ML SDV IVPUSH STA ×2 (03:52→05:02)
[2020-05-18] MEDS ORDERED: Thiamine 100 MG in Sodium Chloride 0.9% 100 ML IV STA (03:52)
[2020-05-18] MEDS ORDERED: Sodium Chloride 0.9% 1,000 ML IV SCH (04:00)
[2020-05-18] MEDS ORDERED: Thiamine 200 MG/2 ML MDV ONE (04:04)
--- NOTE | 2020-05-18 04:17 | EDM.PDOC ---
ED HPI GENERAL MEDICAL PROBLEM - General Chief Complaint: Gastrointestinal Problem Stated Complaint: PUKING Time Seen by Provider: 05/18/20 03:40 Source of Information: Reports: Patient, Family History Limitations: Reports: No Limitations - History of Present Illness INITIAL COMMENTS - FREE TEXT/NARRATIVE: Patient presented to the ED with her because of persistent nausea and vomiting which started yesterday and couldn't keep anything down. She is a chronic alcoholic and drinks beer and liquor on a daily basis. She can't recall how much drinks she had today. She also c/o epigastric pain and chest pain. She had a history of seizure related to alcohol intoxication in the past. - Related Data Allergies Allergy/AdvReac Type Severity Reaction Status Date / Time No Known Allergies Allergy Verified 09/01/18 08:15 Home Meds: Home Meds Nitroglycerin [Nitrostat] 0.4 mg SL ASDIRECTED PRN 04/24/17 [History] hydrOXYzine pamoate [Hydroxyzine Pamoate] 25 mg PO TID PRN 04/24/17 [History] Multivitamins [Tab-A-[place]] 1 tab PO DAILY tablet 05/26/17 [Rx] Thiamine [Vitamin B-1] 100 mg PO DAILY #30 tablet 05/26/17 [Rx] Acetaminophen [Tylenol] 650 mg PO Q4H PRN #100 tablet 12/15/17 [Rx] Magnesium Oxide 400 mg PO BIDAC #60 tablet 12/15/17 [Rx] Potassium Chloride [Klor-Con] 20 meq PO QID 1 Days #100 packet 12/15/17 [Rx] HYDROmorphone [Dilaudid] 2 mg IVPUSH Q3H PRN sdv 09/01/18 [Rx] LORazepam [Ativan] 1 mg IVPUSH Q4H PRN vial 09/01/18 [Rx] NS + KCl 20mEq/L [Normal Saline with 20 mEq KCl] 1 ml IV Q4H bag 09/01/18 [Rx] Ondansetron [Zofran] 4 mg IVPUSH Q4H PRN vial 09/01/18 [Rx] Sodium Chloride 0.9% [Saline Flush] 10 ml FLUSH ASDIRECTED PRN syringe 09/01/18 [Rx] Past Medical History HEENT History: Reports: Cataract, Impaired Vision Cardiovascular History: Reports: Angina, Arrhythmia (Palpitations), SD Other Cardiovascular History: Pt reports palpitations Respiratory History: Reports: SOB Gastrointestinal History: Reports: Cholelithiasis, Cirrhosis, Gastritis, GERD Genitourinary History: Reports: UTI, Recurrent [employer] INST[employer]ER History: 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 Has bilat foot drop. - Infectious Disease History Infectious Disease History: Reports: Chicken Pox Other Infectious Disease History: Unknown. - Past Surgical History HEENT Surgical History: Reports: Cataract Surgery, Tonsillectomy GI Surgical History: Reports: Appendectomy, EGD Dermatological Surgical History: Reports: Skin Graft Social & Family History - Family History Family Medical History: Unobtainable - Caffeine Use Caffeine Use: Reports: None Other Caffeine Use: Unknown. Patient poor historian at this time. Caffeine Use Comment: Does not use caffeine regularly - Living Situation & Occupation Living situation: Reports: Occupation: Unemployed ED ROS GENERAL - Review of Systems Review Of Systems: See Below Constitutional: Reports: Weakness HEENT: Reports: No Symptoms Respiratory: Reports: No Symptoms Cardiovascular: Reports: No Symptoms Endocrine: Reports: No Symptoms GI/Abdominal: Reports: Abdominal Pain, Nausea, Vomiting : Reports: No Symptoms Musculoskeletal: Reports: No Symptoms Skin: Reports: No Symptoms Neurological: Reports: No Symptoms Psychiatric: Reports: No Symptoms ED EXAM, GENERAL - Physical Exam Exam: See Below Exam Limited By: Intoxication General Appearance: Alert, No Apparent Distress Ears: Normal External Exam, Normal Canal, Normal TMs Nose: Normal Inspection, Normal Mucosa, No Blood Throat/Mouth: Normal Inspection, Normal Lips, Normal Teeth Head: Atraumatic, Normocephalic Neck: Normal Inspection, Supple, Non-Tender, Full Range of Motion Respiratory/Chest: No Respiratory Distress, Lungs Clear, Normal Breath Sounds, No Accessory Muscle Use, Chest Non-Tender Cardiovascular: Normal Peripheral Pulses, Regular Rate, Rhythm, No Edema, No Gallop, No JVD, No Murmur, No Rub GI/Abdominal: Normal Bowel Sounds, Soft, Other (epigastric tenderness) Back Exam: Normal Inspection, Full Range of Motion Extremities: Normal Inspection, Normal Range of Motion, Non-Tender, No Pedal Edema, Normal Capillary Refill Neurological: Alert, Oriented, CN II-XII Intact, Normal Cognition, Normal Gait, Normal Reflexes, No Motor/Sensory Deficits Psychiatric: Normal Affect, Normal Mood Skin Exam: Warm, Intact, Normal Color, No Rash Course - Vital Signs Text/Narrative:: Labs/EKG/CXR was discussed with patient NS 1 L bolus Thiamine 100 mg IV x1 Zofran 4 mg IV x2 Ativan 1 mg IV x1 Sodium Bicarb-8.4% 50 ml IV x 1 Vistaril 50 mg IM x1 - Orders/Labs/Meds Orders: Active Orders 24 hr Category Date Time Status EKG Documentation Completion [RC] ASDIRECTED Care 05/18/20 03:51 Active Chest 1V Frontal [CR] Stat Exams 05/18/20 03:49 Taken CORONAVIRUS COVID-19 JEANNA [MOLEC] Stat Lab 05/18/20 04:30 Received DRUG SCREEN, URINE ALERE [URCHEM] Stat Lab 05/18/20 03:52 Ordered LACTIC ACID [CHEM] Stat Lab 05/18/20 07:00 Ordered UA W/MICROSCOPIC [URIN] Stat Lab 05/18/20 03:49 Ordered Sodium Chloride 0.9% [Normal Saline] 1,000 ml Med 05/18/20 04:00 Active IV ASDIRECTED Sodium Chloride 0.9% [Saline Flush] Med 05/18/20 03:49 Active 10 ml FLUSH ASDIRECTED PRN Saline Lock Insert [OM.PC] Routine Oth 05/18/20 03:49 Ordered EKG 12 Lead [EK] Routine Ther 05/18/20 03:49 Ordered Medication Orders Acetaminophen (Acetaminophen 325 Mg Tab) 650 mg PO Q4H PRN PRN Reason: Pain Sodium Chloride (Normal Saline) 1,000 mls @ 999 mls/hr IV ASDIRECTED [facility] Last Admin: 05/18/20 04:20 Dose: 999 mls/hr Documented by: JULIUS Potassium Chloride/Sodium Chloride (Normal Saline With 20 Meq Kcl) 1,000 mls @ 150 mls/hr IV ASDIRECTED ERICH Promethazine HCl 25 mg/ Sodium (Chloride) 51 mls @ 200 mls/hr IV Q6H PRN PRN Reason: Nausea/Vomiting Lorazepam (Lorazepam 2 Mg/Ml Sdv) 1 mg IV Q6H PRN PRN Reason: Nausea/Vomiting Lorazepam (Lorazepam 2 Mg/Ml Sdv) 1 mg IVPUSH Q4H PRN PRN Reason: Withdrawal Symptoms Magnesium Oxide (Magnesium Oxide 400 Mg Tab) 400 mg PO BIDAC [facility] Multivitamins/Minerals/Vitamin C (Multivitamin Tab) 1 tab PO DAILY [facility] Nitroglycerin (Nitroglycerin 0.4 Mg Tab.Sl) 0.4 mg SL ASDIRECTED PRN PRN Reason: Chest Pain Non-Formulary Medication (Hydroxyzine Pamoate [Hydroxyzine Pamoate]) 25 mg PO TID PRN PRN Reason: Anxiety Ondansetron HCl (Ondansetron 4 Mg/2 Ml Sdv) 4 mg IV Q4H PRN PRN Reason: Nausea/Vomiting Ondansetron HCl (Ondansetron 4 Mg/2 Ml Sdv) 4 mg IVPUSH Q4H PRN PRN Reason: Nausea/Vomiting Senna/Docusate Sodium (Docusate Sodium/Sennosides 50-8.6 Mg Tab) 1 tab PO BID PRN PRN Reason: Constipation Sodium Chloride (Sodium Chloride 0.9% 10 Ml Syringe) 10 ml FLUSH ASDIRECTED PRN PRN Reason: Keep Vein Open Last Admin: 05/18/20 03:40 Dose: 10 ml Documented by: JULIUS Sodium Chloride (Sodium Chloride 0.9% 10 Ml Syringe) 10 ml FLUSH ASDIRECTED PRN PRN Reason: Keep Vein Open Thiamine HCl (Thiamine 100 Mg Tab) 100 mg PO DAILY [facility] Labs: Laboratory Tests 05/18/20 05/18/20 05/18/20 Range/Units 04:10 04:10 04:10 WBC 10.8 H (3.0-10.3) x10-3/uL RBC 4.43 (3.60-5.20) x10(6)uL Hgb 14.7 (11.4-15.5) g/dL Hct 45.4 (34.2-48.2) % MCV 102.6 H (76.7-100.5) fL MCH 33.2 (23.9-33.9) pg MCHC 32.4 (31.9-34.8) g/dL RDW 13.7 (12.3-16.5) % Plt Count 172 (151-488) x10(3)uL MPV 8.0 (7.1-12.4) fL Neut % (Auto) 84.8 H (30.8-76.2) % Lymph % (Auto) 7.3 L (18.4-52.1) % [place] % (Auto) 7.4 (4.4-15.7) % Eos % (Auto) 0.0 L (0.6-8.1) % Baso % (Auto) 0.5 (0.2-1.5) % Neut # (Auto) 9.2 H (1.5-6.3) x10-3/uL Lymph # (Auto) 0.8 L (1.0-4.4) x10-3/uL [place] # (Auto) 0.8 (0.3-1.0) x10-3/uL Eos # (Auto) 0.0 (0.0-0.8) x10-3/uL Baso # (Auto) 0.1 (0.0-0.1) x10-3/uL PT 12.1 H (9.0-11.1) sec INR 1.13 (1.00-1.24) APTT 22.2 L (24.4-33.2) SECONDS Sodium 139 (135-145) mmol/L Potassium 3.3 L (3.5-5.3) mmol/L Chloride 88 L* (100-110) mmol/L Carbon Dioxide 11 L* (21-32) mmol/L BUN 5 L (7-18) mg/dL Creatinine 1.1 H (0.55-1.02) mg/dL Est Cr Clr Drug Dosing TNP Estimated GFR (MDRD) 52 L (>60) BUN/Creatinine Ratio 4.5 L (9-20) Glucose 130 H (80-116) mg/dL Lactic Acid (0.4-2.0) mmol/L Calcium 8.7 (8.6-10.2) mg/dL Total Bilirubin 1.1 (0.1-1.3) mg/dL AST 217 H* D (5-25) IU/L ALT 139 H D (12-36) U/L Alkaline Phosphatase 240 H (56-112) IU/L Troponin I (4.0-60.3) pg/mL Total Protein 8.7 H (6.0-8.0) g/dL Albumin 4.7 (3.5-5.2) g/dL Globulin 4.0 g/dL Albumin/Globulin Ratio 1.2 Amylase 65 (25-115) U/L Lipase (73-393) U/L Ethyl Alcohol (<0.03) % 05/18/20 05/18/20 05/18/20 Range/Units 04:10 04:10 04:10 WBC (3.0-10.3) x10-3/uL RBC (3.60-5.20) x10(6)uL Hgb (11.4-15.5) g/dL Hct (34.2-48.2) % MCV (76.7-100.5) fL MCH (23.9-33.9) pg MCHC (31.9-34.8) g/dL RDW (12.3-16.5) % Plt Count (151-488) x10(3)uL MPV (7.1-12.4) fL Neut % (Auto) (30.8-76.2) % Lymph % (Auto) (18.4-52.1) % [place] % (Auto) (4.4-15.7) % Eos % (Auto) (0.6-8.1) % Baso % (Auto) (0.2-1.5) % Neut # (Auto) (1.5-6.3) x10-3/uL Lymph # (Auto) (1.0-4.4) x10-3/uL [place] # (Auto) (0.3-1.0) x10-3/uL Eos # (Auto) (0.0-0.8) x10-3/uL Baso # (Auto) (0.0-0.1) x10-3/uL PT (9.0-11.1) sec INR (1.00-1.24) APTT (24.4-33.2) SECONDS Sodium (135-145) mmol/L Potassium (3.5-5.3) mmol/L Chloride (100-110) mmol/L Carbon Dioxide (21-32) mmol/L BUN (7-18) mg/dL Creatinine (0.55-1.02) mg/dL Est Cr Clr Drug Dosing Estimated GFR (MDRD) (>60) BUN/Creatinine Ratio (9-20) Glucose (80-116) mg/dL Lactic Acid 8.1 H* (0.4-2.0) mmol/L Calcium (8.6-10.2) mg/dL Total Bilirubin (0.1-1.3) mg/dL AST (5-25) IU/L ALT (12-36) U/L Alkaline Phosphatase (56-112) IU/L Troponin I 17.1 (4.0-60.3) pg/mL Total Protein (6.0-8.0) g/dL Albumin (3.5-5.2) g/dL Globulin g/dL Albumin/Globulin Ratio Amylase (25-115) U/L Lipase 152 (73-393) U/L Ethyl Alcohol 0.28 H* (<0.03) % Meds: Medications Generic Name Dose Route Start Last Admin Trade Name Freq PRN Reason Stop Dose Admin Acetaminophen 650 mg 05/18/20 04:54 Acetaminophen 325 Mg Tab PO Q4H PRN Pain Sodium Chloride 1,000 mls @ 999 mls/hr 05/18/20 04:00 05/18/20 04:20 Normal Saline IV 999 mls/hr ASDIRECTED ERICH Administration Potassium Chloride/Sodium Chloride 1,000 mls @ 150 mls/hr 05/18/20 05:00 Normal Saline With 20 Meq Kcl IV ASDIRECTED ERICH Promethazine HCl 25 mg/ Sodium 51 mls @ 200 mls/hr 05/18/20 05:04 Chloride IV Q6H PRN Nausea/Vomiting Lorazepam 1 mg 05/18/20 04:46 Lorazepam 2 Mg/Ml Sdv IV Q6H PRN Nausea/Vomiting Lorazepam 1 mg 05/18/20 04:54 Lorazepam 2 Mg/Ml Sdv IVPUSH Q4H PRN Withdrawal Symptoms Magnesium Oxide 400 mg 05/18/20 07:30 Magnesium Oxide 400 Mg Tab PO BIDAC ERICH Multivitamins/Minerals/Vitamin C 1 tab 05/18/20 09:00 Multivitamin Tab PO DAILY ERICH Nitroglycerin 0.4 mg 05/18/20 04:54 Nitroglycerin 0.4 Mg Tab.Sl SL ASDIRECTED PRN Chest Pain Non-Formulary Medication 25 mg 05/18/20 04:54 Hydroxyzine Pamoate [Hydroxyzine Pamoate] PO TID PRN Anxiety Ondansetron HCl 4 mg 05/18/20 04:46 Ondansetron 4 Mg/2 Ml Sdv IV Q4H PRN Nausea/Vomiting Ondansetron HCl 4 mg 05/18/20 04:54 Ondansetron 4 Mg/2 Ml Sdv IVPUSH Q4H PRN Nausea/Vomiting Senna/Docusate Sodium 1 tab 05/18/20 04:46 Docusate Sodium/Sennosides 50-8.6 Mg Tab PO BID PRN Constipation Sodium Chloride 10 ml 05/18/20 03:49 05/18/20 03:40 Sodium Chloride 0.9% 10 Ml Syringe FLUSH 10 ml ASDIRECTED PRN Administration Keep Vein Open Sodium Chloride 10 ml 05/18/20 04:54 Sodium Chloride 0.9% 10 Ml Syringe FLUSH ASDIRECTED PRN Keep Vein Open Thiamine HCl 100 mg 05/18/20 09:00 Thiamine 100 Mg Tab PO DAILY ERICH Discontinued Medications Generic Name Dose Route Start Last Admin Trade Name Freq PRN Reason Stop Dose Admin Hydroxyzine HCl 50 mg 05/18/20 05:02 Hydroxyzine Hcl 50 Mg/Ml Sdv IM 05/18/20 05:03 NOW STA Thiamine HCl 100 mg/ Sodium 101 mls @ 202 mls/hr 05/18/20 03:52 05/18/20 04:37 Chloride IV 05/18/20 03:53 Not Given NOW STA Lorazepam 1 mg 05/18/20 03:52 05/18/20 04:15 Lorazepam 2 Mg/Ml Sdv IVPUSH 05/18/20 03:53 1 mg NOW STA Administration Non-Formulary Medication 1 ml 05/18/20 05:00 Ns + Kcl 20meq/L [Normal Saline With 20 Meq Kcl] IV Q4H ERICH Ondansetron HCl 4 mg 05/18/20 03:52 05/18/20 04:13 Ondansetron 4 Mg/2 Ml Sdv IVPUSH 05/18/20 03:53 4 mg NOW STA Administration Ondansetron HCl 4 mg 05/18/20 05:02 Ondansetron 4 Mg/2 Ml Sdv IVPUSH 05/18/20 05:03 NOW STA Sodium Bicarbonate 50 meq 05/18/20 04:53 Sodium Bicarbonate 8.4% 50 Meq/50 Ml Syringe IVPUSH 05/18/20 04:54 ONETIME ONE Thiamine HCl Confirm 05/18/20 04:04 05/18/20 04:37 Thiamine 200 Mg/2 Ml Mdv Administered 05/18/20 04:05 Not Given Dose 200 mg .ROUTE .STK-MED ONE Thiamine HCl 100 mg 05/18/20 04:20 05/18/20 04:20 Thiamine 200 Mg/2 Ml Mdv IVPUSH 05/18/20 04:21 100 mg ONETIME ONE Administration Departure - Departure Time of Disposition: 05:00 Disposition: Admitted As Inpatient 67 Condition: Good Clinical Impression: Nausea and vomiting, Dehydration, Ketoacidosis, Hypokalemia Alcohol intoxication Qualifiers: Complication of substance-induced condition: with unspecified complication Qualified Code(s): F10.929 - Alcohol use, unspecified with intoxication, unspecified - Discharge Information - My Orders Last 24 Hours: My Active Orders 05/18/20 03:49 Chest 1V Frontal [CR] Stat UA W/MICROSCOPIC [URIN] Stat Sodium Chloride 0.9% [Saline Flush] 10 ml FLUSH ASDIRECTED PRN Saline Lock Insert [OM.PC] Routine EKG 12 Lead [EK] Routine 05/18/20 03:51 EKG Documentation Completion [RC] ASDIRECTED 05/18/20 03:52 DRUG SCREEN, URINE ALERE [URCHEM] Stat 05/18/20 04:00 Sodium Chloride 0.9% [Normal Saline] 1,000 ml IV ASDIRECTED 05/18/20 04:30 CORONAVIRUS COVID-19 JEANNA [MOLEC] Stat 05/18/20 07:00 LACTIC ACID [CHEM] Stat - Assessment/Plan Last 24 Hours: My Active Orders 05/18/20 03:49 Chest 1V Frontal [CR] Stat UA W/MICROSCOPIC [URIN] Stat Sodium Chloride 0.9% [Saline Flush] 10 ml FLUSH ASDIRECTED PRN Saline Lock Insert [OM.PC] Routine EKG 12 Lead [EK] Routine 05/18/20 03:51 EKG Documentation Completion [RC] ASDIRECTED 05/18/20 03:52 DRUG SCREEN, URINE ALERE [URCHEM] Stat 05/18/20 04:00 Sodium Chloride 0.9% [Normal Saline] 1,000 ml IV ASDIRECTED 05/18/20 04:30 CORONAVIRUS COVID-19 JEANNA [MOLEC] Stat 05/18/20 07:00 LACTIC ACID [CHEM] Stat
[2020-05-18] MEDS ORDERED: Thiamine 200 MG/2 ML MDV IVPUSH ONE (04:20)
[2020-05-18] MEDS ORDERED: LORazepam 2 MG/ML SDV IV PRN (04:46)
[2020-05-18] MEDS ORDERED: Ondansetron 4 MG/2 ML SDV IV PRN (04:46)
[2020-05-18] MEDS ORDERED: Sodium Bicarbonate 8.4% 50 MEQ/50 ML Syringe IVPUSH ONE (04:53)
[2020-05-18] MEDS ORDERED: Ondansetron 4 MG/2 ML SDV IVPUSH PRN (04:54)
[2020-05-18] MEDS ORDERED: Acetaminophen 325 MG Tab PO PRN (04:54)
[2020-05-18] MEDS ORDERED: Nitroglycerin 0.4 MG Tab.SL SL PRN (04:54)
[2020-05-18] MEDS ORDERED: LORazepam 2 MG/ML SDV IVPUSH PRN (04:54)
[2020-05-18] MEDS ORDERED: Non-Formulary Medication 1 Each (Hydroxyzine Pamoate [Hydroxyzine Pamoate] 25 MG Capsule) PO PRN (04:54)
[2020-05-18] MEDS ORDERED: KCL IV SCH (05:00)
[2020-05-18] MEDS ORDERED: NS + KCl 20mEq/L 1,000 ML IV SCH ×2 (05:00→12:00)
[2020-05-18] MEDS ORDERED: NS IV SCH (05:00)
[2020-05-18] MEDS ORDERED: [UNRECOGNIZED DRUG - OTHER] IV SCH (05:00)
[2020-05-18] MEDS ORDERED: hydrOXYzine HCl 50 MG/ML SDV IM STA (05:02)
[2020-05-18] MEDS ORDERED: Promethazine 25 MG in Sodium Chloride 0.9% 50 ML IV PRN (05:04)
[2020-05-18 05:47] VITALS: PULSE 129
[2020-05-18] MEDS ORDERED: hydrOXYzine HCl 25 MG Tab PO PRN (07:00)
[2020-05-18] MEDS ORDERED: Magnesium Oxide 400 MG Tab PO SCH (07:30)
[2020-05-18] MEDS ORDERED: Multivitamin Tab PO SCH (09:00)
[2020-05-18] MEDS ORDERED: Thiamine 100 MG Tab PO SCH (09:00)
--- NOTE | 2020-05-18 09:30 | PCM.HP.2 ---
H&P History of Present Illness - General Date of Service: 05/18/20 Admit Problem/Dx: Admission Diagnosis/Problem Admission Diagnosis/Problem Nausea and vomiting Source of Information: Patient, Old Records, Provider, RN Notes Reviewed History Limitations: Reports: Intoxication - History of Present Illness Initial Comments - Free Text/Narative: 55-year-old lady with past medical history significant for chronic alcohol abuse with multiple visits to the emergency department due to alcohol abuse related illnesses such as chronic liver disease, malnutrition, withdrawal. She also has a significant medical history for 2 or more NSTEMI's. Patient was brought to the emergency department by her spouse secondary to a 2 or 3-day history of epigastric pain, chest pain, nausea and vomiting. She was evaluated in the emergency department and found to be dehydrated with electrolyte abnormalities, tachycardic, EKG showed possible anterior lateral and inferior ischemia which may be secondary to prior heart disease and/or demand ischemia but troponin was negative. Patient was treated for nausea and vomiting with antiemetics, dehydration with IV fluids. Onset of Symptoms: Reports: Sudden Duration of Symptoms: Reports: Day(s): Location: Reports: Generalized Severity: Severe Improves with: Reports: None Worsens with: Reports: Eating lower chest Pain Score (Numeric/FACES): 6 Epigastric Pain Score (Numeric/FACES): 4 - Related Data Allergies/Adverse Reactions: Allergies Allergy/AdvReac Type Severity Reaction Status Date / Time No Known Allergies Allergy Verified 05/18/20 06:06 Home Medications: Home Meds Nitroglycerin [Nitrostat] 0.4 mg SL ASDIRECTED PRN 04/24/17 [History] hydrOXYzine pamoate [Hydroxyzine Pamoate] 25 mg PO TID PRN 04/24/17 [History] Multivitamins [Tab-A-Shelby] 1 tab PO DAILY tablet 05/26/17 [Rx] Thiamine [Vitamin B-1] 100 mg PO DAILY #30 tablet 05/26/17 [Rx] Acetaminophen [Tylenol] 650 mg PO Q4H PRN #100 tablet 12/15/17 [Rx] Magnesium Oxide 400 mg PO BIDAC #60 tablet 12/15/17 [Rx] Potassium Chloride [Klor-Con] 20 meq PO QID 1 Days #100 packet 12/15/17 [Rx] HYDROmorphone [Dilaudid] 2 mg IVPUSH Q3H PRN sdv 09/01/18 [Rx] LORazepam [Ativan] 1 mg IVPUSH Q4H PRN vial 09/01/18 [Rx] NS + KCl 20mEq/L [Normal Saline with 20 mEq KCl] 1 ml IV Q4H bag 09/01/18 [Rx] Ondansetron [Zofran] 4 mg IVPUSH Q4H PRN vial 09/01/18 [Rx] Sodium Chloride 0.9% [Saline Flush] 10 ml FLUSH ASDIRECTED PRN syringe 09/01/18 [Rx] Past Medical History HEENT History: Reports: Cataract, Impaired Vision Cardiovascular History: Reports: Angina, Arrhythmia, MD Other Cardiovascular History: Pt reports palpitations Respiratory History: Reports: SOB Gastrointestinal History: Reports: Cholelithiasis, Cirrhosis, Gastritis, GERD Genitourinary History: Reports: UTI, Recurrent DEMAND PLANNER History: Reports: Other OB/BYN History: [id number] Musculoskeletal History: Reports: Other (See Below) Other Musculoskeletal History: peripheral neuropathy,airr Neurological History: Reports: Neuropathy, Peripheral Psychiatric History: Reports: Addiction, Anxiety, Panic Attack, Psych Hospitalization(s) Other Psychiatric History: Hx ETOH abuse Endocrine/Metabolic History: Reports: None Hematologic History: Reports: Anemia Immunologic History: Reports: None Oncologic (Cancer) History: Reports: None Dermatologic History: Reports: Other (See Below) Other Dermatologic History: severe goel bite to hands bilat & feet. Has bilat foot drop. - Infectious Disease History Infectious Disease History: Reports: Chicken Pox Other Infectious Disease History: Unknown. - Past Surgical History HEENT Surgical History: Reports: Cataract Surgery, Tonsillectomy Other HEENT Surgeries/Procedures: bilat cataract surgery Cardiovascular Surgical History: Reports: None GI Surgical History: Reports: Appendectomy, EGD Female Surgical History: Reports: Other (See Below) Other Female Surgeries/Procedures: ? d and Neurological Surgical History: Reports: None Musculoskeletal Surgical History: Reports: None Dermatological Surgical History: Reports: Skin Graft Social & Family History - Family History Family Medical History: Unobtainable - Tobacco Use Tobacco Use Status *Q: Never Tobacco User - Caffeine Use Caffeine Use: Reports: Soda Other Caffeine Use: Unknown. Patient poor historian at this time. Caffeine Use Comment: Does not use caffeine regularly - Alcohol Use Days Per Week of Alcohol Use: 7 Number of Drinks Per Day: 4 Total Drinks Per Week: 28 - Recreational Drug Use Recreational Drug Use: No - Living Situation & Occupation Living situation: Reports: Occupation: Unemployed H&P Review of Systems - Review of Systems: Review Of Systems: See Below General: Reports: Weakness, Decreased Appetite HEENT: Reports: No Symptoms Pulmonary: Reports: No Symptoms Cardiovascular: Reports: No Symptoms Gastrointestinal: Reports: Abdominal Pain, Anorexia, Nausea, Vomiting Genitourinary: Reports: No Symptoms Musculoskeletal: Reports: No Symptoms Skin: Reports: No Symptoms Psychiatric: Reports: Other (Substance abuse) Neurological: Reports: Confusion, Difficulty Walking Hematologic/Lymphatic: Reports: No Symptoms Immunologic: Reports: No Symptoms Exam - Exam Exam: See Below - Vital Signs Vital Signs: Last Vital Signs Temp 36.8 C 05/18/20 07:45 Pulse 129 H 05/18/20 04:46 Resp 20 05/18/20 07:45 BP 107/65 05/18/20 07:45 Pulse Ox 99 05/18/20 07:45 Weight: 54.34 kg - Exam Quality Assessment: Supplemental Oxygen, DVT Prophylaxis General: Alert, Oriented, Cooperative, Mild Distress HEENT: EOMI, Mucosa Moist & Tomas De Castro Neck: Supple Lungs: Decreased Breath Sounds, Crackles Cardiovascular: Regular Rhythm, Tachycardia GI/Abdominal Exam: Normal Bowel Sounds, Soft, Tender Back Exam: Normal Inspection. No: CVA Tenderness (R), CVA Tenderness (L) Extremities: Normal Inspection, Non-Tender, No Pedal Edema Peripheral Pulses: 2+: Radial (L), Radial (R), Dorsalis Pedis (L), Dorsalis Pedis (R) Skin: Warm, Dry Neuro Extensive - Mental Status: Alert, Disorientation to Time, Slow Response to Commands Psychiatric: Alert, Other (Affect is flat, depressed) - Patient Data Lab Results Last 24 hrs: Laboratory Results - last 24 hr 05/18/20 05/18/20 05/18/20 Range/Units 04:10 04:10 04:10 WBC 10.8 H (3.0-10.3) x10-3/uL RBC 4.43 (3.60-5.20) x10(6)uL Hgb 14.7 (11.4-15.5) g/dL Hct 45.4 (34.2-48.2) % MCV 102.6 H (76.7-100.5) fL MCH 33.2 (23.9-33.9) pg MCHC 32.4 (31.9-34.8) g/dL RDW 13.7 (12.3-16.5) % Plt Count 172 (151-488) x10(3)uL MPV 8.0 (7.1-12.4) fL Neut % (Auto) 84.8 H (30.8-76.2) % Lymph % (Auto) 7.3 L (18.4-52.1) % [place] % (Auto) 7.4 (4.4-15.7) % Eos % (Auto) 0.0 L (0.6-8.1) % Baso % (Auto) 0.5 (0.2-1.5) % Neut # (Auto) 9.2 H (1.5-6.3) x10-3/uL Lymph # (Auto) 0.8 L (1.0-4.4) x10-3/uL [place] # (Auto) 0.8 (0.3-1.0) x10-3/uL Eos # (Auto) 0.0 (0.0-0.8) x10-3/uL Baso # (Auto) 0.1 (0.0-0.1) x10-3/uL PT 12.1 H (9.0-11.1) sec INR 1.13 (1.00-1.24) APTT 22.2 L (24.4-33.2) SECONDS Sodium 139 (135-145) mmol/L Potassium 3.3 L (3.5-5.3) mmol/L Chloride 88 L* (100-110) mmol/L Carbon Dioxide 11 L* (21-32) mmol/L BUN 5 L (7-18) mg/dL Creatinine 1.1 H (0.55-1.02) mg/dL Est Cr Clr Drug Dosing TNP Estimated GFR (MDRD) 52 L (>60) BUN/Creatinine Ratio 4.5 L (9-20) Glucose 130 H (80-116) mg/dL Lactic Acid (0.4-2.0) mmol/L Calcium 8.7 (8.6-10.2) mg/dL Total Bilirubin 1.1 (0.1-1.3) mg/dL AST 217 H* D (5-25) IU/L ALT 139 H D (12-36) U/L Alkaline Phosphatase 240 H (56-112) IU/L Troponin I (4.0-60.3) pg/mL Total Protein 8.7 H (6.0-8.0) g/dL Albumin 4.7 (3.5-5.2) g/dL Globulin 4.0 g/dL Albumin/Globulin Ratio 1.2 Amylase 65 (25-115) U/L Lipase (73-393) U/L Urine Color (YELLOW) Urine Appearance (CLEAR) Urine pH (5.0-6.5) Ur Specific [place] (1.010-1.025) Urine Protein (NEGATIVE) mg/dL Urine Glucose (UA) (NORMAL) mg/dL Urine Ketones (NEGATIVE) mg/dL Urine Occult Blood (NEGATIVE) Urine Nitrite (NEGATIVE) Urine Bilirubin (NEGATIVE) Urine Urobilinogen (NEGATIVE) mg/dL Ur Leukocyte Esterase (NEGATIVE) U Hyaline Cast (Auto) (NS) Urine WBC (0-5) Ur Squamous Epith Cells (NS,R,O) Urine Bacteria (NS) Urine Opiates Screen (NEGATIVE) Ur Oxycodone Screen (NEGATIVE) Ur Propoxyphene Screen (NEGATIVE) Ur Barbituates Screen (NEGATIVE) Ur Tricyclics Screen (NEGATIVE) Ur Phencyclidine Scrn (NEGATIVE) Ur Amphetamine Screen (NEGATIVE) Urine MDMA Screen (NEGATIVE) U Benzodiazepines Scrn (NEGATIVE) U Cocaine Metab Screen (NEGATIVE) U Marijuana (THC) Screen (NEGATIVE) Ethyl Alcohol (<0.03) % SARS-CoV-2 RNA (JEANNA) (NEGATIVE) 05/18/20 05/18/20 05/18/20 Range/Units 04:10 04:10 04:10 WBC (3.0-10.3) x10-3/uL RBC (3.60-5.20) x10(6)uL Hgb (11.4-15.5) g/dL Hct (34.2-48.2) % MCV (76.7-100.5) fL MCH (23.9-33.9) pg MCHC (31.9-34.8) g/dL RDW (12.3-16.5) % Plt Count (151-488) x10(3)uL MPV (7.1-12.4) fL Neut % (Auto) (30.8-76.2) % Lymph % (Auto) (18.4-52.1) % Greene % (Auto) (4.4-15.7) % Eos % (Auto) (0.6-8.1) % Baso % (Auto) (0.2-1.5) % Neut # (Auto) (1.5-6.3) x10-3/uL Lymph # (Auto) (1.0-4.4) x10-3/uL Greene # (Auto) (0.3-1.0) x10-3/uL Eos # (Auto) (0.0-0.8) x10-3/uL Baso # (Auto) (0.0-0.1) x10-3/uL PT (9.0-11.1) sec INR (1.00-1.24) APTT (24.4-33.2) SECONDS Sodium (135-145) mmol/L Potassium (3.5-5.3) mmol/L Chloride (100-110) mmol/L Carbon Dioxide (21-32) mmol/L BUN (7-18) mg/dL Creatinine (0.55-1.02) mg/dL Est Cr Clr Drug Dosing Estimated GFR (MDRD) (>60) BUN/Creatinine Ratio (9-20) Glucose (80-116) mg/dL Lactic Acid 8.1 H* (0.4-2.0) mmol/L Calcium (8.6-10.2) mg/dL Total Bilirubin (0.1-1.3) mg/dL AST (5-25) IU/L ALT (12-36) U/L Alkaline Phosphatase (56-112) IU/L Troponin I 17.1 (4.0-60.3) pg/mL Total Protein (6.0-8.0) g/dL Albumin (3.5-5.2) g/dL Globulin g/dL Albumin/Globulin Ratio Amylase (25-115) U/L Lipase 152 (73-393) U/L Urine Color (YELLOW) Urine Appearance (CLEAR) Urine pH (5.0-6.5) Ur Specific [place] (1.010-1.025) Urine Protein (NEGATIVE) mg/dL Urine Glucose (UA) (NORMAL) mg/dL Urine Ketones (NEGATIVE) mg/dL Urine Occult Blood (NEGATIVE) Urine Nitrite (NEGATIVE) Urine Bilirubin (NEGATIVE) Urine Urobilinogen (NEGATIVE) mg/dL Ur Leukocyte Esterase (NEGATIVE) U Hyaline Cast (Auto) (NS) Urine WBC (0-5) Ur Squamous Epith Cells (NS,R,O) Urine Bacteria (NS) Urine Opiates Screen (NEGATIVE) Ur Oxycodone Screen (NEGATIVE) Ur Propoxyphene Screen (NEGATIVE) Ur Barbituates Screen (NEGATIVE) Ur Tricyclics Screen (NEGATIVE) Ur Phencyclidine Scrn (NEGATIVE) Ur Amphetamine Screen (NEGATIVE) Urine MDMA Screen (NEGATIVE) U Benzodiazepines Scrn (NEGATIVE) U Cocaine Metab Screen (NEGATIVE) U Marijuana (THC) Screen (NEGATIVE) Ethyl Alcohol 0.28 H* (<0.03) % SARS-CoV-2 RNA (JEANNA) (NEGATIVE) 05/18/20 05/18/20 05/18/20 Range/Units 04:30 07:37 07:37 WBC (3.0-10.3) x10-3/uL RBC (3.60-5.20) x10(6)uL Hgb (11.4-15.5) g/dL Hct (34.2-48.2) % MCV (76.7-100.5) fL MCH (23.9-33.9) pg MCHC (31.9-34.8) g/dL RDW (12.3-16.5) % Plt Count (151-488) x10(3)uL MPV (7.1-12.4) fL Neut % (Auto) (30.8-76.2) % Lymph % (Auto) (18.4-52.1) % Greene % (Auto) (4.4-15.7) % Eos % (Auto) (0.6-8.1) % Baso % (Auto) (0.2-1.5) % Neut # (Auto) (1.5-6.3) x10-3/uL Lymph # (Auto) (1.0-4.4) x10-3/uL [place] # (Auto) (0.3-1.0) x10-3/uL Eos # (Auto) (0.0-0.8) x10-3/uL Baso # (Auto) (0.0-0.1) x10-3/uL PT (9.0-11.1) sec INR (1.00-1.24) APTT (24.4-33.2) SECONDS Sodium (135-145) mmol/L Potassium (3.5-5.3) mmol/L Chloride (100-110) mmol/L Carbon Dioxide (21-32) mmol/L BUN (7-18) mg/dL Creatinine (0.55-1.02) mg/dL Est Cr Clr Drug Dosing Estimated GFR (MDRD) (>60) BUN/Creatinine Ratio (9-20) Glucose (80-116) mg/dL Lactic Acid (0.4-2.0) mmol/L Calcium (8.6-10.2) mg/dL Total Bilirubin (0.1-1.3) mg/dL AST (5-25) IU/L ALT (12-36) U/L Alkaline Phosphatase (56-112) IU/L Troponin I (4.0-60.3) pg/mL Total Protein (6.0-8.0) g/dL Albumin (3.5-5.2) g/dL Globulin g/dL Albumin/Globulin Ratio Amylase (25-115) U/L Lipase (73-393) U/L Urine Color Yellow (YELLOW) Urine Appearance Slightly cloudy (CLEAR) Urine pH 5.0 (5.0-6.5) Ur Specific [place] 1.020 (1.010-1.025) Urine Protein Trace (NEGATIVE) mg/dL Urine Glucose (UA) Normal (NORMAL) mg/dL Urine Ketones 150 H (NEGATIVE) mg/dL Urine Occult Blood Negative (NEGATIVE) Urine Nitrite Negative (NEGATIVE) Urine Bilirubin Negative (NEGATIVE) Urine Urobilinogen Normal (NEGATIVE) mg/dL Ur Leukocyte Esterase Small H (NEGATIVE) U Hyaline Cast (Auto) Few H (NS) Urine WBC 5-10 H (0-5) Ur Squamous Epith Cells Few H (NS,R,O) Urine Bacteria Moderate H (NS) Urine Opiates Screen Negative (NEGATIVE) Ur Oxycodone Screen Negative (NEGATIVE) Ur Propoxyphene Screen Negative (NEGATIVE) Ur Barbituates Screen Negative (NEGATIVE) Ur Tricyclics Screen Negative (NEGATIVE) Ur Phencyclidine Scrn Negative (NEGATIVE) Ur Amphetamine Screen Negative (NEGATIVE) Urine MDMA Screen Negative (NEGATIVE) U Benzodiazepines Scrn Negative (NEGATIVE) U Cocaine Metab Screen Negative (NEGATIVE) U Marijuana (THC) Screen Negative (NEGATIVE) Ethyl Alcohol (<0.03) % SARS-CoV-2 RNA (JEANNA) Negative (NEGATIVE) 05/18/20 Range/Units 08:10 WBC (3.0-10.3) x10-3/uL RBC (3.60-5.20) x10(6)uL Hgb (11.4-15.5) g/dL Hct (34.2-48.2) % MCV (76.7-100.5) fL MCH (23.9-33.9) pg MCHC (31.9-34.8) g/dL RDW (12.3-16.5) % Plt Count (151-488) x10(3)uL MPV (7.1-12.4) fL Neut % (Auto) (30.8-76.2) % Lymph % (Auto) (18.4-52.1) % [place] % (Auto) (4.4-15.7) % Eos % (Auto) (0.6-8.1) % Baso % (Auto) (0.2-1.5) % Neut # (Auto) (1.5-6.3) x10-3/uL Lymph # (Auto) (1.0-4.4) x10-3/uL [place] # (Auto) (0.3-1.0) x10-3/uL Eos # (Auto) (0.0-0.8) x10-3/uL Baso # (Auto) (0.0-0.1) x10-3/uL PT (9.0-11.1) sec INR (1.00-1.24) APTT (24.4-33.2) SECONDS Sodium (135-145) mmol/L Potassium (3.5-5.3) mmol/L Chloride (100-110) mmol/L Carbon Dioxide (21-32) mmol/L BUN (7-18) mg/dL Creatinine (0.55-1.02) mg/dL Est Cr Clr Drug Dosing Estimated GFR (MDRD) (>60) BUN/Creatinine Ratio (9-20) Glucose (80-116) mg/dL Lactic Acid 3.6 H* (0.4-2.0) mmol/L Calcium (8.6-10.2) mg/dL Total Bilirubin (0.1-1.3) mg/dL AST (5-25) IU/L ALT (12-36) U/L Alkaline Phosphatase (56-112) IU/L Troponin I (4.0-60.3) pg/mL Total Protein (6.0-8.0) g/dL Albumin (3.5-5.2) g/dL Globulin g/dL Albumin/Globulin Ratio Amylase (25-115) U/L Lipase (73-393) U/L Urine Color (YELLOW) Urine Appearance (CLEAR) Urine pH (5.0-6.5) Ur Specific [place] (1.010-1.025) Urine Protein (NEGATIVE) mg/dL Urine Glucose (UA) (NORMAL) mg/dL Urine Ketones (NEGATIVE) mg/dL Urine Occult Blood (NEGATIVE) Urine Nitrite (NEGATIVE) Urine Bilirubin (NEGATIVE) Urine Urobilinogen (NEGATIVE) mg/dL Ur Leukocyte Esterase (NEGATIVE) U Hyaline Cast (Auto) (NS) Urine WBC (0-5) Ur Squamous Epith Cells (NS,R,O) Urine Bacteria (NS) Urine Opiates Screen (NEGATIVE) Ur Oxycodone Screen (NEGATIVE) Ur Propoxyphene Screen (NEGATIVE) Ur Barbituates Screen (NEGATIVE) Ur Tricyclics Screen (NEGATIVE) Ur Phencyclidine Scrn (NEGATIVE) Ur Amphetamine Screen (NEGATIVE) Urine MDMA Screen (NEGATIVE) U Benzodiazepines Scrn (NEGATIVE) U Cocaine Metab Screen (NEGATIVE) U Marijuana (THC) Screen (NEGATIVE) Ethyl Alcohol (<0.03) % SARS-CoV-2 RNA (JEANNA) (NEGATIVE) Result Diagrams: 05/18/20 04:10 05/18/20 04:10 Sepsis Event Note - Evaluation Sepsis Screening Result: No Definite Risk - Focused Exam Vital Signs: Vital Signs Temp Temp Pulse Resp BP Pulse Ox Pulse Ox 05/18/20 07:45 36.8 C 20 107/65 99 05/18/20 05:30 100 100 05/18/20 05:11 20 115/65 99 05/18/20 05:00 18 100/60 100 05/18/20 04:46 36.6 C 129 H 16 102/66 100 05/18/20 04:30 13 85/59 L 99 05/18/20 04:15 15 97/54 L 99 05/18/20 04:00 15 99/61 99 05/18/20 03:45 36.1 C 15 105/58 L 100 05/18/20 03:30 13 99 - Problem List (1) High anion gap metabolic acidosis SNOMED Code(s): 32549570 ICD Code: E87.2 - ACIDOSIS Status: Acute Current Visit: Yes (2) Alcohol intoxication SNOMED Code(s): 46835719 ICD Code: F10.929 - ALCOHOL USE, UNSPECIFIED WITH INTOXICATION, UNSPECIFIED Status: Acute Current Visit: Yes Qualifiers: Complication of substance-induced condition: with unspecified complication Qualified Code(s): F10.929 - Alcohol use, unspecified with intoxication, unspecified (3) Dehydration SNOMED Code(s): 38194484 ICD Code: E86.0 - DEHYDRATION Status: Acute Priority: High Current Visit: Yes (4) Hypokalemia SNOMED Code(s): 62641499 ICD Code: E87.6 - HYPOKALEMIA Status: Acute Current Visit: Yes Problem Details: Continue PO supplementation. Patient resistant to taking oral supplements. However, after extensive discussion about mixing in drinks, taking throughout day, etc, patient feels she will be successful at home. (5) Ketoacidosis SNOMED Code(s): 67855540 ICD Code: E87.2 - ACIDOSIS Status: Acute Current Visit: Yes (6) Nausea and vomiting SNOMED Code(s): 99392258 ICD Code: R11.2 - NAUSEA WITH VOMITING, UNSPECIFIED Status: Acute Current Visit: Yes (7) Abdominal pain SNOMED Code(s): 36560438 ICD Code: R10.9 - UNSPECIFIED ABDOMINAL PAIN Status: Acute Current Visit: Yes Qualifiers: Abdominal location: generalized Qualified Code(s): R10.84 - Generalized abdominal pain (8) Alcohol abuse SNOMED Code(s): 33475706 ICD Code: F10.10 - ALCOHOL ABUSE, UNCOMPLICATED Status: Chronic Current Visit: Yes Problem Details: Patient has been not amenable to treatment or interventions. Again offered assistance and declined. (9) CAD (coronary atherosclerotic disease) SNOMED Code(s): 472900947 ICD Code: I25.10 - ATHSCL HEART DISEASE OF [place] CORONARY ARTERY W/O ANG PCTRS Status: Chronic Current Visit: Yes Problem Details: Continue BB. Patient has previously been prescribed aspirin, beta ike, CHRISTY inhibitor. Has been inconsistently compliant with medications. Testing done in February 2017 showed demand ischemia with normal echo with ejection fraction of 60% and a mildly abnormal Jenna scan. No left heart catheterization was recommended by cardiology. (10) Fatty liver, alcoholic SNOMED Code(s): 89057201 ICD Code: K70.0 - ALCOHOLIC FATTY LIVER Status: Chronic Current Visit: Yes (11) Lactic acidosis SNOMED Code(s): 34936363 ICD Code: E87.2 - ACIDOSIS Status: Acute Current Visit: Yes (12) Palliative care status SNOMED Code(s): 226997639 ICD Code: Z51.5 - ENCOUNTER FOR PALLIATIVE CARE Status: Acute Current Visit: Yes (13) QT prolongation SNOMED Code(s): 053184217 ICD Code: R94.31 - ABNORMAL ELECTROCARDIOGRAM [ECG] [EKG] Status: Acute Current Visit: Yes Problem Details: Baseline 500 previous hospitalization without QT prolongation meds. Continue BB therapy and avoid QT prolongation meds. (14) Sinus tachycardia SNOMED Code(s): 93092320 ICD Code: R00.0 - TACHYCARDIA, UNSPECIFIED Status: Acute Current Visit: Yes (15) Alcohol addiction SNOMED Code(s): 66079374 ICD Code: F10.20 - ALCOHOL DEPENDENCE, UNCOMPLICATED Status: Chronic Current Visit: Yes Qualifiers: (16) Alcoholic liver damage, unspecified SNOMED Code(s): 65079729 ICD Code: K70.9 - ALCOHOLIC LIVER DISEASE, UNSPECIFIED Status: Chronic Priority: High Current Visit: Yes (17) Malnutrition compromising bodily function SNOMED Code(s): 9258709 ICD Code: E46 - UNSPECIFIED PROTEIN-CALORIE MALNUTRITION Status: Chronic Priority: High Current Visit: Yes (18) Mobility impaired SNOMED Code(s): 38914900 ICD Code: Z74.09 - OTHER REDUCED MOBILITY Status: Chronic Current Visit: Yes Problem List Initiated/Reviewed/Updated: Yes Orders Last 24hrs: Active Orders 24 hr Category Date Time Status Patient Status [ADT] Routine ADT 05/18/20 04:46 Active Antiembolic Devices [RC] .Routine Care 05/18/20 04:46 Active CIWAA Assessment [RC] Q1H Care 05/18/20 09:21 Ordered Cardiac Monitoring [RC] CONTINUOUS Care 05/18/20 04:48 Active Oxygen Therapy [RC] PRN Care 05/18/20 04:46 Active Pulse Oximetry [RC] PRN Care 05/18/20 04:48 Active Up With Assistance [RC] ASDIRECTED Care 05/18/20 04:46 Active Vital Signs [RC] 00,04,08,12,16,20 Care 05/18/20 04:46 Active Heart Healthy Diet [DIET] Diet 05/18/20 Breakfast Active Regular Diet [DIET] Diet 05/18/20 Lunch Active Chest 1V Frontal [CR] Stat Exams 05/18/20 03:49 Taken Acetaminophen [TylenoL] Med 05/18/20 04:54 Active 650 mg PO Q4H PRN Docusate Sodium/Sennosides [Senna Plus] Med 05/18/20 04:46 Active 1 tab PO BID PRN LORazepam [Ativan] Med 05/18/20 04:46 Active 1 mg IV Q6H PRN LORazepam [Ativan] Med 05/18/20 04:54 Active 1 mg IVPUSH Q4H PRN Magnesium Oxide Med 05/18/20 07:30 Active 400 mg PO BIDAC Multivitamins [Tab-A-Shelby] Med 05/18/20 09:00 Active 1 tab PO DAILY NS + KCl 20mEq/L [Normal Saline with 20 mEq KCl] 1,000 Med 05/18/20 05:00 Active ml IV ASDIRECTED NS + KCl 20mEq/L [Normal Saline with 20 mEq KCl] 1,000 Med 05/18/20 12:00 Active ml IV Q7H Nitroglycerin [Nitrostat] Med 05/18/20 04:54 Active 0.4 mg SL ASDIRECTED PRN Ondansetron [Zofran] Med 05/18/20 04:54 Active 4 mg IVPUSH Q4H PRN Promethazine [Phenergan] 25 mg Med 05/18/20 05:04 Active Sodium Chloride 0.9% [Normal Saline] 50 ml IV Q6H Sodium Chloride 0.9% [Normal Saline] 1,000 ml Med 05/18/20 04:00 Active IV ASDIRECTED Sodium Chloride 0.9% [Saline Flush] Med 05/18/20 03:49 Active 10 ml FLUSH ASDIRECTED PRN Sodium Chloride 0.9% [Saline Flush] Med 05/18/20 04:54 Active 10 ml FLUSH ASDIRECTED PRN Thiamine [Vitamin B-1] Med 05/18/20 09:00 Active 100 mg PO DAILY hydrOXYzine HCL [Atarax] Med 05/18/20 07:00 Active 25 mg PO TID PRN Saline Lock Insert [OM.PC] Routine Oth 05/18/20 03:49 Ordered Sequential Compression Device [OM.PC] Per Unit Routine Oth 05/18/20 04:48 Ordered Resuscitation Status Routine Resus Stat 05/18/20 04:46 Ordered EKG 12 Lead [EK] Routine Ther 05/18/20 03:49 Ordered Medication Orders Acetaminophen (Acetaminophen 325 Mg Tab) 650 mg PO Q4H PRN PRN Reason: Pain Hydroxyzine HCl (Hydroxyzine Hcl 25 Mg Tab) 25 mg PO TID PRN PRN Reason: Anxiety Sodium Chloride (Normal Saline) 1,000 mls @ 999 mls/hr IV ASDIRECTED [facility] Last Admin: 05/18/20 04:20 Dose: 999 mls/hr Documented by: JULIUS Potassium Chloride/Sodium Chloride (Normal Saline With 20 Meq Kcl) 1,000 mls @ 150 mls/hr IV ASDIRECTED [facility] Stop: 05/18/20 11:59 Last Admin: 05/18/20 05:20 Dose: 150 mls/hr Documented by: JULIUS Promethazine HCl 25 mg/ Sodium (Chloride) 51 mls @ 200 mls/hr IV Q6H PRN PRN Reason: Nausea/Vomiting Potassium Chloride/Sodium Chloride (Normal Saline With 20 Meq Kcl) 1,000 mls @ 150 mls/hr IV Q7H [facility] Lorazepam (Lorazepam 2 Mg/Ml Sdv) 1 mg IV Q6H PRN PRN Reason: Nausea/Vomiting Lorazepam (Lorazepam 2 Mg/Ml Sdv) 1 mg IVPUSH Q4H PRN PRN Reason: Withdrawal Symptoms Magnesium Oxide (Magnesium Oxide 400 Mg Tab) 400 mg PO BIDAC [facility] Last Admin: 05/18/20 09:20 Dose: 400 mg Documented by: TAYLER Multivitamins/Minerals/Vitamin C (Multivitamin Tab) 1 tab PO DAILY [facility] Last Admin: 05/18/20 09:21 Dose: 1 tab Documented by: TAYLER Nitroglycerin (Nitroglycerin 0.4 Mg Tab.Sl) 0.4 mg SL ASDIRECTED PRN PRN Reason: Chest Pain Ondansetron HCl (Ondansetron 4 Mg/2 Ml Sdv) 4 mg IVPUSH Q4H PRN PRN Reason: Nausea/Vomiting Senna/Docusate Sodium (Docusate Sodium/Sennosides 50-8.6 Mg Tab) 1 tab PO BID PRN PRN Reason: Constipation Sodium Chloride (Sodium Chloride 0.9% 10 Ml Syringe) 10 ml FLUSH ASDIRECTED PRN PRN Reason: Keep Vein Open Last Admin: 05/18/20 03:40 Dose: 10 ml Documented by: JULIUS Sodium Chloride (Sodium Chloride 0.9% 10 Ml Syringe) 10 ml FLUSH ASDIRECTED PRN PRN Reason: Keep Vein Open Thiamine HCl (Thiamine 100 Mg Tab) 100 mg PO DAILY [facility] Last Admin: 05/18/20 09:21 Dose: 100 mg Documented by: TAYLER Assessment/Plan Comment:: Continue hydration with normal saline, check electrolytes and replete as necessary, CIWA every hour with lorazepam, telemetry monitoring, diet with supplementary nutrition, DVT prophylaxis with Lovenox, GI prophylaxis with Protonix, folic acid, thiamine. EKG performed on admission shows possible lateral and inferior ischemia. Comparison with previous EKGs shows no significant changes but the patient is more tachycardic at this time and may have some and ischemia. Patient denies shortness of breath and chest pain at this time. Performed follow-up EKG at 1400 on 05/18/2020 for comparison. Order troponin immediately if patient has chest pain or shortness of breath.
[2020-05-18] MEDS ORDERED: Folic Acid 0.4 MG Tab PO SCH (10:00)
[2020-05-18] MEDS ORDERED: Pantoprazole 40 MG Vial IVPUSH SCH (10:00)
[2020-05-18] MEDS ORDERED: Enoxaparin 40 MG/0.4 ML Syringe SUBCUT SCH (10:00)
[2020-05-18] MEDS ORDERED: LORazepam 2 MG/ML SDV IV SCH (11:45)
[2020-05-18] MEDS ORDERED: LORazepam 1 MG Tab PO SCH (11:45)
[2020-05-18] MEDS ORDERED: Octreotide 100 MCG/ML SDV IVPUSH ONE (13:29)
[2020-05-18] MEDS ORDERED: Octreotide 250 MCG in Sodium Chloride 0.9% 250 ML IV SCH (13:30)
--- NOTE | 2020-05-18 13:45 | PCM.DCSUM1 ---
Discharge Summary - Hospital Course Free Text/Narrative:: Patient was admitted to inpatient stay from the emergency department in the early a.m. hours. Patient presented with nausea and vomiting. Patient has past medical history significant for chronic alcohol abuse. Patient complained of abdominal pain, nausea, vomiting. Laboratory testing indicated high anion gap metabolic acidosis consistent with alcohol intoxication and vomiting. Patient was treated with IV fluids, benzodiazepine. Patient denied chest pain, shortness of breath. EKG not significantly changed from prior EKGs but the patient has a history of NSTEMI and EKG showed possible inferior and lateral lead ischemia. Troponin was negative. Patient stated that she was beginning to feel better and was hungry and wanted to eat. Patient was started on regular diet with supplements as desired. Patient tried to take her morning medicines and vomited, she was given Zofran. Patient tried to eat and vomited. Patient vomited fresh red blood, no coffee-ground appearance, few clots. Patient was given Lovenox, 40 mg SubQ, for DVT prophylaxis approximately 1 hour prior to hematemesis. Contacted transferring facility and they accepted transfer. Patient was given 40 mg IV Protonix earlier in the morning. Patient was given 50 mcg bolus of octreotide followed by 50 mcg/h drip. Will be transferred to acute care facility for further evaluation and treatment. Diagnosis: Stroke: No - Discharge Data Discharge Date: 05/18/20 Discharge Disposition: DC/Tfer to Acute Hospital 02 Condition: Poor - Referral to Home Health Primary Care Physician: Rocco Gonsales MD - Discharge Diagnosis/Problem(s) (1) High anion gap metabolic acidosis SNOMED Code(s): 70093898 ICD Code: E87.2 - ACIDOSIS Status: Acute Current Visit: Yes (2) Alcohol intoxication SNOMED Code(s): 58990075 ICD Code: F10.929 - ALCOHOL USE, UNSPECIFIED WITH INTOXICATION, UNSPECIFIED Status: Acute Current Visit: Yes Qualifiers: Complication of substance-induced condition: with unspecified complication Qualified Code(s): F10.929 - Alcohol use, unspecified with intoxication, unspecified (3) Dehydration SNOMED Code(s): 62348125 ICD Code: E86.0 - DEHYDRATION Status: Acute Priority: High Current Visit: Yes (4) Hypokalemia SNOMED Code(s): 25255706 ICD Code: E87.6 - HYPOKALEMIA Status: Acute Current Visit: Yes Problem Details: Continue PO supplementation. Patient resistant to taking oral supplements. However, after extensive discussion about mixing in drinks, taking throughout day, etc, patient feels she will be successful at home. (5) Ketoacidosis SNOMED Code(s): 34325330 ICD Code: E87.2 - ACIDOSIS Status: Acute Current Visit: Yes (6) Nausea and vomiting SNOMED Code(s): 05987164 ICD Code: R11.2 - NAUSEA WITH VOMITING, UNSPECIFIED Status: Acute Current Visit: Yes (7) Abdominal pain SNOMED Code(s): 41175777 ICD Code: R10.9 - UNSPECIFIED ABDOMINAL PAIN Status: Acute Current Visit: Yes Qualifiers: Abdominal location: generalized Qualified Code(s): R10.84 - Generalized abdominal pain (8) Alcohol abuse SNOMED Code(s): 20601129 ICD Code: F10.10 - ALCOHOL ABUSE, UNCOMPLICATED Status: Chronic Current Visit: Yes Problem Details: Patient has been not amenable to treatment or interventions. Again offered assistance and declined. (9) CAD (coronary atherosclerotic disease) SNOMED Code(s): 526969673 ICD Code: I25.10 - ATHSCL HEART DISEASE OF [place] CORONARY ARTERY W/O ANG PCTRS Status: Chronic Current Visit: Yes Problem Details: Continue BB. Patient has previously been prescribed aspirin, beta ike, CHRISTY inhibitor. Has been inconsistently compliant with medications. Testing done in February 2017 showed demand ischemia with normal echo with ejection fraction of 60% and a mildly abnormal Jenna scan. No left heart catheterization was recommended by cardiology. (10) Fatty liver, alcoholic SNOMED Code(s): 05302704 ICD Code: K70.0 - ALCOHOLIC FATTY LIVER Status: Chronic Current Visit: Yes (11) Lactic acidosis SNOMED Code(s): 98928940 ICD Code: E87.2 - ACIDOSIS Status: Acute Current Visit: Yes (12) Palliative care status SNOMED Code(s): 748482203 ICD Code: Z51.5 - ENCOUNTER FOR PALLIATIVE CARE Status: Acute Current Visit: Yes (13) QT prolongation SNOMED Code(s): 582724171 ICD Code: R94.31 - ABNORMAL ELECTROCARDIOGRAM [ECG] [EKG] Status: Acute Current Visit: Yes Problem Details: Baseline 500 previous hospitalization without QT prolongation meds. Continue BB therapy and avoid QT prolongation meds. (14) Sinus tachycardia SNOMED Code(s): 26616964 ICD Code: R00.0 - TACHYCARDIA, UNSPECIFIED Status: Acute Current Visit: Yes (15) Alcohol addiction SNOMED Code(s): 51678462 ICD Code: F10.20 - ALCOHOL DEPENDENCE, UNCOMPLICATED Status: Chronic Current Visit: Yes Qualifiers: (16) Alcoholic liver damage, unspecified SNOMED Code(s): 47122529 ICD Code: K70.9 - ALCOHOLIC LIVER DISEASE, UNSPECIFIED Status: Chronic Priority: High Current Visit: Yes (17) Malnutrition compromising bodily function SNOMED Code(s): 3082902 ICD Code: E46 - UNSPECIFIED PROTEIN-CALORIE MALNUTRITION Status: Chronic Priority: High Current Visit: Yes (18) Mobility impaired SNOMED Code(s): 22893091 ICD Code: Z74.09 - OTHER REDUCED MOBILITY Status: Chronic Current Visit: Yes (19) Hematemesis SNOMED Code(s): 9012437 ICD Code: K92.0 - HEMATEMESIS Status: Acute Current Visit: Yes - Patient Instructions Diet: NPO - Discharge Plan *PRESCRIPTION DRUG MONITORING PROGRAM REVIEWED*: Not Applicable *COPY OF PRESCRIPTION DRUG MONITORING REPORT IN PATIENT KWADWO: Not Applicable Home Medications: Home Meds Nitroglycerin [Nitrostat] 0.4 mg SL ASDIRECTED PRN 04/24/17 [History] hydrOXYzine pamoate [Hydroxyzine Pamoate] 25 mg PO TID PRN 04/24/17 [History] Multivitamins [Tab-A-[place]] 1 tab PO DAILY tablet 05/26/17 [Rx] Thiamine [Vitamin B-1] 100 mg PO DAILY #30 tablet 05/26/17 [Rx] Acetaminophen [Tylenol] 650 mg PO Q4H PRN #100 tablet 12/15/17 [Rx] Magnesium Oxide 400 mg PO BIDAC #60 tablet 12/15/17 [Rx] Potassium Chloride [Klor-Con] 20 meq PO QID 1 Days #100 packet 12/15/17 [Rx] HYDROmorphone [Dilaudid] 2 mg IVPUSH Q3H PRN sdv 09/01/18 [Rx] LORazepam [Ativan] 1 mg IVPUSH Q4H PRN vial 09/01/18 [Rx] NS + KCl 20mEq/L [Normal Saline with 20 mEq KCl] 1 ml IV Q4H bag 09/01/18 [Rx] Ondansetron [Zofran] 4 mg IVPUSH Q4H PRN vial 09/01/18 [Rx] Sodium Chloride 0.9% [Saline Flush] 10 ml FLUSH ASDIRECTED PRN syringe 09/01/18 [Rx] Forms: ED Department Discharge Referrals: Rocco Gonsales MD [Primary Care Provider] - - Discharge Summary/Plan Comment DC Time >30 min.: No Discharge Summary/Plan Comment: Discharge to acute care facility. - General Info Date of Service: 05/18/20 Admission Dx/Problem (Free Text: Admission Diagnosis/Problem Admission Diagnosis/Problem Nausea and vomiting Subjective Update: After hematemesis patient is complaining of significant abdominal pain. She denies any significant chest pain or shortness of breath. - Review of Systems General: Reports: Weakness HEENT: Reports: No Symptoms Pulmonary: Reports: No Symptoms Cardiovascular: Reports: No Symptoms Gastrointestinal: Reports: Abdominal Pain, Nausea, Vomiting, Other (Hematemesis) Genitourinary: Reports: No Symptoms Musculoskeletal: Reports: No Symptoms Skin: Reports: No Symptoms Neurological: Reports: No Symptoms Psychiatric: Reports: No Symptoms - Patient Data Vitals - Most Recent: Last Vital Signs Temp 36.8 C 05/18/20 07:45 Pulse 129 H 05/18/20 04:46 Resp 20 05/18/20 07:45 BP 107/65 05/18/20 07:45 Pulse Ox 99 05/18/20 07:45 Weight - Most Recent: 54.34 kg I&O - Last 24 hours: Intake & Output 05/17/20 05/18/20 05/18/20 22:59 06:59 14:59 Intake Total 1999 Balance 1999 Lab Results - Last 24 hrs: Laboratory Results - last 24 hr 05/18/20 05/18/20 05/18/20 Range/Units 04:10 04:10 04:10 WBC 10.8 H (3.0-10.3) x10-3/uL RBC 4.43 (3.60-5.20) x10(6)uL Hgb 14.7 (11.4-15.5) g/dL Hct 45.4 (34.2-48.2) % MCV 102.6 H (76.7-100.5) fL MCH 33.2 (23.9-33.9) pg MCHC 32.4 (31.9-34.8) g/dL RDW 13.7 (12.3-16.5) % Plt Count 172 (151-488) x10(3)uL MPV 8.0 (7.1-12.4) fL Neut % (Auto) 84.8 H (30.8-76.2) % Lymph % (Auto) 7.3 L (18.4-52.1) % [place] % (Auto) 7.4 (4.4-15.7) % Eos % (Auto) 0.0 L (0.6-8.1) % Baso % (Auto) 0.5 (0.2-1.5) % Neut # (Auto) 9.2 H (1.5-6.3) x10-3/uL Lymph # (Auto) 0.8 L (1.0-4.4) x10-3/uL [place] # (Auto) 0.8 (0.3-1.0) x10-3/uL Eos # (Auto) 0.0 (0.0-0.8) x10-3/uL Baso # (Auto) 0.1 (0.0-0.1) x10-3/uL PT 12.1 H (9.0-11.1) sec INR 1.13 (1.00-1.24) APTT 22.2 L (24.4-33.2) SECONDS Sodium 139 (135-145) mmol/L Potassium 3.3 L (3.5-5.3) mmol/L Chloride 88 L* (100-110) mmol/L Carbon Dioxide 11 L* (21-32) mmol/L BUN 5 L (7-18) mg/dL Creatinine 1.1 H (0.55-1.02) mg/dL Est Cr Clr Drug Dosing TNP Estimated GFR (MDRD) 52 L (>60) BUN/Creatinine Ratio 4.5 L (9-20) Glucose 130 H (80-116) mg/dL Lactic Acid (0.4-2.0) mmol/L Calcium 8.7 (8.6-10.2) mg/dL Total Bilirubin 1.1 (0.1-1.3) mg/dL AST 217 H* D (5-25) IU/L ALT 139 H D (12-36) U/L Alkaline Phosphatase 240 H (56-112) IU/L Troponin I (4.0-60.3) pg/mL Total Protein 8.7 H (6.0-8.0) g/dL Albumin 4.7 (3.5-5.2) g/dL Globulin 4.0 g/dL Albumin/Globulin Ratio 1.2 Amylase 65 (25-115) U/L Lipase (73-393) U/L Urine Color (YELLOW) Urine Appearance (CLEAR) Urine pH (5.0-6.5) Ur Specific [place] (1.010-1.025) Urine Protein (NEGATIVE) mg/dL Urine Glucose (UA) (NORMAL) mg/dL Urine Ketones (NEGATIVE) mg/dL Urine Occult Blood (NEGATIVE) Urine Nitrite (NEGATIVE) Urine Bilirubin (NEGATIVE) Urine Urobilinogen (NEGATIVE) mg/dL Ur Leukocyte Esterase (NEGATIVE) U Hyaline Cast (Auto) (NS) Urine WBC (0-5) Ur Squamous Epith Cells (NS,R,O) Urine Bacteria (NS) Urine Opiates Screen (NEGATIVE) Ur Oxycodone Screen (NEGATIVE) Ur Propoxyphene Screen (NEGATIVE) Ur Barbituates Screen (NEGATIVE) Ur Tricyclics Screen (NEGATIVE) Ur Phencyclidine Scrn (NEGATIVE) Ur Amphetamine Screen (NEGATIVE) Urine MDMA Screen (NEGATIVE) U Benzodiazepines Scrn (NEGATIVE) U Cocaine Metab Screen (NEGATIVE) U Marijuana (THC) Screen (NEGATIVE) Ethyl Alcohol (<0.03) % SARS-CoV-2 RNA (JEANNA) (NEGATIVE) 05/18/20 05/18/20 05/18/20 Range/Units 04:10 04:10 04:10 WBC (3.0-10.3) x10-3/uL RBC (3.60-5.20) x10(6)uL Hgb (11.4-15.5) g/dL Hct (34.2-48.2) % MCV (76.7-100.5) fL MCH (23.9-33.9) pg MCHC (31.9-34.8) g/dL RDW (12.3-16.5) % Plt Count (151-488) x10(3)uL MPV (7.1-12.4) fL Neut % (Auto) (30.8-76.2) % Lymph % (Auto) (18.4-52.1) % [place] % (Auto) (4.4-15.7) % Eos % (Auto) (0.6-8.1) % Baso % (Auto) (0.2-1.5) % Neut # (Auto) (1.5-6.3) x10-3/uL Lymph # (Auto) (1.0-4.4) x10-3/uL [place] # (Auto) (0.3-1.0) x10-3/uL Eos # (Auto) (0.0-0.8) x10-3/uL Baso # (Auto) (0.0-0.1) x10-3/uL PT (9.0-11.1) sec INR (1.00-1.24) APTT (24.4-33.2) SECONDS Sodium (135-145) mmol/L Potassium (3.5-5.3) mmol/L Chloride (100-110) mmol/L Carbon Dioxide (21-32) mmol/L BUN (7-18) mg/dL Creatinine (0.55-1.02) mg/dL Est Cr Clr Drug Dosing Estimated GFR (MDRD) (>60) BUN/Creatinine Ratio (9-20) Glucose (80-116) mg/dL Lactic Acid 8.1 H* (0.4-2.0) mmol/L Calcium (8.6-10.2) mg/dL Total Bilirubin (0.1-1.3) mg/dL AST (5-25) IU/L ALT (12-36) U/L Alkaline Phosphatase (56-112) IU/L Troponin I 17.1 (4.0-60.3) pg/mL Total Protein (6.0-8.0) g/dL Albumin (3.5-5.2) g/dL Globulin g/dL Albumin/Globulin Ratio Amylase (25-115) U/L Lipase 152 (73-393) U/L Urine Color (YELLOW) Urine Appearance (CLEAR) Urine pH (5.0-6.5) Ur Specific [place] (1.010-1.025) Urine Protein (NEGATIVE) mg/dL Urine Glucose (UA) (NORMAL) mg/dL Urine Ketones (NEGATIVE) mg/dL Urine Occult Blood (NEGATIVE) Urine Nitrite (NEGATIVE) Urine Bilirubin (NEGATIVE) Urine Urobilinogen (NEGATIVE) mg/dL Ur Leukocyte Esterase (NEGATIVE) U Hyaline Cast (Auto) (NS) Urine WBC (0-5) Ur Squamous Epith Cells (NS,R,O) Urine Bacteria (NS) Urine Opiates Screen (NEGATIVE) Ur Oxycodone Screen (NEGATIVE) Ur Propoxyphene Screen (NEGATIVE) Ur Barbituates Screen (NEGATIVE) Ur Tricyclics Screen (NEGATIVE) Ur Phencyclidine Scrn (NEGATIVE) Ur Amphetamine Screen (NEGATIVE) Urine MDMA Screen (NEGATIVE) U Benzodiazepines Scrn (NEGATIVE) U Cocaine Metab Screen (NEGATIVE) U Marijuana (THC) Screen (NEGATIVE) Ethyl Alcohol 0.28 H* (<0.03) % SARS-CoV-2 RNA (JEANNA) (NEGATIVE) 05/18/20 05/18/20 05/18/20 Range/Units 04:30 07:37 07:37 WBC (3.0-10.3) x10-3/uL RBC (3.60-5.20) x10(6)uL Hgb (11.4-15.5) g/dL Hct (34.2-48.2) % MCV (76.7-100.5) fL MCH (23.9-33.9) pg MCHC (31.9-34.8) g/dL RDW (12.3-16.5) % Plt Count (151-488) x10(3)uL MPV (7.1-12.4) fL Neut % (Auto) (30.8-76.2) % Lymph % (Auto) (18.4-52.1) % [place] % (Auto) (4.4-15.7) % Eos % (Auto) (0.6-8.1) % Baso % (Auto) (0.2-1.5) % Neut # (Auto) (1.5-6.3) x10-3/uL Lymph # (Auto) (1.0-4.4) x10-3/uL [place] # (Auto) (0.3-1.0) x10-3/uL Eos # (Auto) (0.0-0.8) x10-3/uL Baso # (Auto) (0.0-0.1) x10-3/uL PT (9.0-11.1) sec INR (1.00-1.24) APTT (24.4-33.2) SECONDS Sodium (135-145) mmol/L Potassium (3.5-5.3) mmol/L Chloride (100-110) mmol/L Carbon Dioxide (21-32) mmol/L BUN (7-18) mg/dL Creatinine (0.55-1.02) mg/dL Est Cr Clr Drug Dosing Estimated GFR (MDRD) (>60) BUN/Creatinine Ratio (9-20) Glucose (80-116) mg/dL Lactic Acid (0.4-2.0) mmol/L Calcium (8.6-10.2) mg/dL Total Bilirubin (0.1-1.3) mg/dL AST (5-25) IU/L ALT (12-36) U/L Alkaline Phosphatase (56-112) IU/L Troponin I (4.0-60.3) pg/mL Total Protein (6.0-8.0) g/dL Albumin (3.5-5.2) g/dL Globulin g/dL Albumin/Globulin Ratio Amylase (25-115) U/L Lipase (73-393) U/L Urine Color Yellow (YELLOW) Urine Appearance Slightly cloudy (CLEAR) Urine pH 5.0 (5.0-6.5) Ur Specific [place] 1.020 (1.010-1.025) Urine Protein Trace (NEGATIVE) mg/dL Urine Glucose (UA) Normal (NORMAL) mg/dL Urine Ketones 150 H (NEGATIVE) mg/dL Urine Occult Blood Negative (NEGATIVE) Urine Nitrite Negative (NEGATIVE) Urine Bilirubin Negative (NEGATIVE) Urine Urobilinogen Normal (NEGATIVE) mg/dL Ur Leukocyte Esterase Small H (NEGATIVE) U Hyaline Cast (Auto) Few H (NS) Urine WBC 5-10 H (0-5) Ur Squamous Epith Cells Few H (NS,R,O) Urine Bacteria Moderate H (NS) Urine Opiates Screen Negative (NEGATIVE) Ur Oxycodone Screen Negative (NEGATIVE) Ur Propoxyphene Screen Negative (NEGATIVE) Ur Barbituates Screen Negative (NEGATIVE) Ur Tricyclics Screen Negative (NEGATIVE) Ur Phencyclidine Scrn Negative (NEGATIVE) Ur Amphetamine Screen Negative (NEGATIVE) Urine MDMA Screen Negative (NEGATIVE) U Benzodiazepines Scrn Negative (NEGATIVE) U Cocaine Metab Screen Negative (NEGATIVE) U Marijuana (THC) Screen Negative (NEGATIVE) Ethyl Alcohol (<0.03) % SARS-CoV-2 RNA (JEANNA) Negative (NEGATIVE) 05/18/20 Range/Units 08:10 WBC (3.0-10.3) x10-3/uL RBC (3.60-5.20) x10(6)uL Hgb (11.4-15.5) g/dL Hct (34.2-48.2) % MCV (76.7-100.5) fL MCH (23.9-33.9) pg MCHC (31.9-34.8) g/dL RDW (12.3-16.5) % Plt Count (151-488) x10(3)uL MPV (7.1-12.4) fL Neut % (Auto) (30.8-76.2) % Lymph % (Auto) (18.4-52.1) % [place] % (Auto) (4.4-15.7) % Eos % (Auto) (0.6-8.1) % Baso % (Auto) (0.2-1.5) % Neut # (Auto) (1.5-6.3) x10-3/uL Lymph # (Auto) (1.0-4.4) x10-3/uL [place] # (Auto) (0.3-1.0) x10-3/uL Eos # (Auto) (0.0-0.8) x10-3/uL Baso # (Auto) (0.0-0.1) x10-3/uL PT (9.0-11.1) sec INR (1.00-1.24) APTT (24.4-33.2) SECONDS Sodium (135-145) mmol/L Potassium (3.5-5.3) mmol/L Chloride (100-110) mmol/L Carbon Dioxide (21-32) mmol/L BUN (7-18) mg/dL Creatinine (0.55-1.02) mg/dL Est Cr Clr Drug Dosing Estimated GFR (MDRD) (>60) BUN/Creatinine Ratio (9-20) Glucose (80-116) mg/dL Lactic Acid 3.6 H* (0.4-2.0) mmol/L Calcium (8.6-10.2) mg/dL Total Bilirubin (0.1-1.3) mg/dL AST (5-25) IU/L ALT (12-36) U/L Alkaline Phosphatase (56-112) IU/L Troponin I (4.0-60.3) pg/mL Total Protein (6.0-8.0) g/dL Albumin (3.5-5.2) g/dL Globulin g/dL Albumin/Globulin Ratio Amylase (25-115) U/L Lipase (73-393) U/L Urine Color (YELLOW) Urine Appearance (CLEAR) Urine pH (5.0-6.5) Ur Specific [place] (1.010-1.025) Urine Protein (NEGATIVE) mg/dL Urine Glucose (UA) (NORMAL) mg/dL Urine Ketones (NEGATIVE) mg/dL Urine Occult Blood (NEGATIVE) Urine Nitrite (NEGATIVE) Urine Bilirubin (NEGATIVE) Urine Urobilinogen (NEGATIVE) mg/dL Ur Leukocyte Esterase (NEGATIVE) U Hyaline Cast (Auto) (NS) Urine WBC (0-5) Ur Squamous Epith Cells (NS,R,O) Urine Bacteria (NS) Urine Opiates Screen (NEGATIVE) Ur Oxycodone Screen (NEGATIVE) Ur Propoxyphene Screen (NEGATIVE) Ur Barbituates Screen (NEGATIVE) Ur Tricyclics Screen (NEGATIVE) Ur Phencyclidine Scrn (NEGATIVE) Ur Amphetamine Screen (NEGATIVE) Urine MDMA Screen (NEGATIVE) U Benzodiazepines Scrn (NEGATIVE) U Cocaine Metab Screen (NEGATIVE) U Marijuana (THC) Screen (NEGATIVE) Ethyl Alcohol (<0.03) % SARS-CoV-2 RNA (JEANNA) (NEGATIVE) Med Orders - Current: Current Medications Acetaminophen (Acetaminophen 325 Mg Tab) 650 mg PO Q4H PRN PRN Reason: Pain Enoxaparin Sodium (Enoxaparin 40 Mg/0.4 Ml Syringe) 40 mg SUBCUT DAILY [facility] Last Admin: 05/18/20 11:14 Dose: 40 mg Documented by: Folic Acid (Folic Acid 0.4 Mg Tab) 0.4 mg PO DAILY [facility] Last Admin: 05/18/20 11:08 Dose: 0.4 mg Documented by: Hydroxyzine HCl (Hydroxyzine Hcl 25 Mg Tab) 25 mg PO TID PRN PRN Reason: Anxiety Sodium Chloride (Normal Saline) 1,000 mls @ 999 mls/hr IV ASDIRECTED [facility] Last Admin: 05/18/20 04:20 Dose: 999 mls/hr Documented by: Promethazine HCl 25 mg/ Sodium (Chloride) 51 mls @ 200 mls/hr IV Q6H PRN PRN Reason: Nausea/Vomiting Potassium Chloride/Sodium Chloride (Normal Saline With 20 Meq Kcl) 1,000 mls @ 150 mls/hr IV Q7H [facility] Last Admin: 05/18/20 12:03 Dose: 150 mls/hr Documented by: Octreotide Acetate 250 mcg/ (Sodium Chloride) 252.5 mls @ 50.5 mls/hr IV Q10H ERICH Lorazepam (Lorazepam 2 Mg/Ml Sdv) 0 mg IV ASDIRECTED [facility]; Protocol Lorazepam (Lorazepam 1 Mg Tab) 0 mg PO ASDIRECTED [facility]; Protocol Magnesium Oxide (Magnesium Oxide 400 Mg Tab) 400 mg PO BIDAC [facility] Last Admin: 05/18/20 09:20 Dose: 400 mg Documented by: Multivitamins/Minerals/Vitamin C (Multivitamin Tab) 1 tab PO DAILY [facility] Last Admin: 05/18/20 09:21 Dose: 1 tab Documented by: Nitroglycerin (Nitroglycerin 0.4 Mg Tab.Sl) 0.4 mg SL ASDIRECTED PRN PRN Reason: Chest Pain Ondansetron HCl (Ondansetron 4 Mg/2 Ml Sdv) 4 mg IVPUSH Q4H PRN PRN Reason: Nausea/Vomiting Last Admin: 05/18/20 11:22 Dose: 4 mg Documented by: Pantoprazole Sodium (Pantoprazole 40 Mg Vial) 40 mg IVPUSH Q24H [facility] Last Admin: 05/18/20 11:11 Dose: 40 mg Documented by: Senna/Docusate Sodium (Docusate Sodium/Sennosides 50-8.6 Mg Tab) 1 tab PO BID PRN PRN Reason: Constipation Sodium Chloride (Sodium Chloride 0.9% 10 Ml Syringe) 10 ml FLUSH ASDIRECTED PRN PRN Reason: Keep Vein Open Last Admin: 05/18/20 03:40 Dose: 10 ml Documented by: Sodium Chloride (Sodium Chloride 0.9% 10 Ml Syringe) 10 ml FLUSH ASDIRECTED PRN PRN Reason: Keep Vein Open Thiamine HCl (Thiamine 100 Mg Tab) 100 mg PO DAILY [facility] Last Admin: 05/18/20 09:21 Dose: 100 mg Documented by: Discontinued Medications Hydroxyzine HCl (Hydroxyzine Hcl 50 Mg/Ml Sdv) 50 mg IM NOW STA Stop: 05/18/20 05:03 Last Admin: 05/18/20 05:10 Dose: 50 mg Documented by: Thiamine HCl 100 mg/ Sodium (Chloride) 101 mls @ 202 mls/hr IV NOW STA Stop: 05/18/20 03:53 Last Admin: 05/18/20 04:37 Dose: Not Given Documented by: Potassium Chloride/Sodium Chloride (Normal Saline With 20 Meq Kcl) 1,000 mls @ 150 mls/hr IV ASDIRECTED [facility] Stop: 05/18/20 11:59 Last Admin: 05/18/20 05:20 Dose: 150 mls/hr Documented by: Lorazepam (Lorazepam 2 Mg/Ml Sdv) 1 mg IVPUSH NOW STA Stop: 05/18/20 03:53 Last Admin: 05/18/20 04:15 Dose: 1 mg Documented by: Lorazepam (Lorazepam 2 Mg/Ml Sdv) 1 mg IV Q6H PRN PRN Reason: Nausea/Vomiting Lorazepam (Lorazepam 2 Mg/Ml Sdv) 1 mg IVPUSH Q4H PRN PRN Reason: Withdrawal Symptoms Non-Formulary Medication (Ns + Kcl 20meq/L [Normal Saline With 20 Meq Kcl]) 1 ml IV Q4H [facility] Last Admin: 05/18/20 05:19 Dose: Not Given Documented by: Non-Formulary Medication (Hydroxyzine Pamoate [Hydroxyzine Pamoate]) 25 mg PO TID PRN PRN Reason: Anxiety Octreotide Acetate (Octreotide 100 Mcg/Ml Sdv) 50 mcg IVPUSH ONETIME ONE Stop: 05/18/20 13:30 Last Admin: 05/18/20 13:37 Dose: 50 mcg Documented by: Ondansetron HCl (Ondansetron 4 Mg/2 Ml Sdv) 4 mg IVPUSH NOW STA Stop: 05/18/20 03:53 Last Admin: 05/18/20 04:13 Dose: 4 mg Documented by: Ondansetron HCl (Ondansetron 4 Mg/2 Ml Sdv) 4 mg IV Q4H PRN PRN Reason: Nausea/Vomiting Ondansetron HCl (Ondansetron 4 Mg/2 Ml Sdv) 4 mg IVPUSH NOW STA Stop: 05/18/20 05:03 Last Admin: 05/18/20 05:15 Dose: 4 mg Documented by: Sodium Bicarbonate (Sodium Bicarbonate 8.4% 50 Meq/50 Ml Syringe) 50 meq IVPUSH ONETIME ONE Stop: 05/18/20 04:54 Last Admin: 05/18/20 05:50 Dose: 50 meq Documented by: Thiamine HCl (Thiamine 200 Mg/2 Ml Mdv) Confirm Administered Dose 200 mg .ROUTE .STK-MED ONE Stop: 05/18/20 04:05 Last Admin: 05/18/20 04:37 Dose: Not Given Documented by: Thiamine HCl (Thiamine 200 Mg/2 Ml Mdv) 100 mg IVPUSH ONETIME ONE Stop: 05/18/20 04:21 Last Admin: 05/18/20 04:20 Dose: 100 mg Documented by: - Exam Quality Assessment: Reports: Supplemental Oxygen, DVT Prophylaxis General: Reports: Alert, Oriented, Cooperative, Moderate Distress HEENT: Reports: EOMI Lungs: Reports: Decreased Breath Sounds, Crackles Cardiovascular: Reports: Regular Rhythm, Tachycardia GI/Abdominal Exam: Normal Bowel Sounds, Tender Back Exam: Reports: Normal Inspection. Denies: CVA Tenderness (R), CVA Tenderness (L) Extremities: Normal Inspection Psy/Mental Status: Reports: Alert, Depressed
[2020-05-18] MEDS ORDERED: LORazepam 2 MG/ML SDV IVPUSH ONE (14:10)
--- NOTE | 2020-05-18 18:10 | CR ---
CHEST ONE VIEW 0481 INDICATION: Nausea and vomiting. An AP upright view of the chest was obtained 05/18/2020 and compared with 10/30/2019 and 07/27/2019. Overlying EKG leads are noted. The heart is normal in size and shape. Mediastinum is unremarkable. Bony thorax was unremarkable. No evidence of free air was noted under the hemidiaphragm leaves. Pulmonary markings are similar to the previous study without a definite active infiltrate or effusion. IMPRESSION: No acute process. MTDD
[2020-05-18 18:37] VITALS: BP 110/68
== END 2020-05-18 14:25 | DRG 897 ==
LOC: FB.ED 03:26 → FB.MS 04:46
PROVIDERS: ADMIT Emergency Medicine; ATTEND Student in an Organized Health Care Education/Training Program
DX: F10.929 Alcohol use, unspecified with intoxication, unspecified (principal); R11.2 Nausea with vomiting, unspecified; F10.229 Alcohol dependence with intoxication, unspecified; E87.2 Acidosis; E46 Unspecified protein-calorie malnutrition; K92.0 Hematemesis; Z68.1 Body mass index [BMI] 19.9 or less, adult; E86.0 Dehydration; E87.6 Hypokalemia; I25.10 Atherosclerotic heart disease of native coronary artery without angina pectoris; R10.84 Generalized abdominal pain; Z51.5 Encounter for palliative care; Z20.822 Contact with and (suspected) exposure to COVID-19; K70.0 Alcoholic fatty liver; R94.31 Abnormal electrocardiogram [ECG] [EKG]; H54.7 Unspecified visual loss; K21.9 Gastro-esophageal reflux disease without esophagitis; F41.0 Panic disorder [episodic paroxysmal anxiety]; D64.9 Anemia, unspecified; G62.9 Polyneuropathy, unspecified; Y90.0 Blood alcohol level of less than 20 mg/100 ml; K74.60 Unspecified cirrhosis of liver; Z79.899 Other long term (current) drug therapy; I25.2 Old myocardial infarction; Z87.440 Personal history of urinary (tract) infections; Z98.49 Cataract extraction status, unspecified eye; Z90.49 Acquired absence of other specified parts of digestive tract
CPT/HCPCS: 36415; 71045; 80053; 80307; 82150; 83605; 83690; 84484; 85025; 85610; 85730; 87635; 93005; J2060; J2405; J3411; J7030; 80305-QW; 81001; 96374; 96375; 99285-25; A9270-GY; C9113; J1650; J2354; J3410; J3480; J7050; U0002

== ENCOUNTER 2022-07-29 13:23 | Inpatient (IN) | payer MEDICAID ==
[2022-07-29] MEDS ORDERED: Sodium Chloride 0.9% 1,000 ML IV ONE (13:39)
[2022-07-29] MEDS ORDERED: Ketorolac 30 MG/ML SDV IVPUSH ONE (13:39)
[2022-07-29 14:24] LABS: BASOPHILS ABSOLUTE AUTO 0.1 x10-3/uL (0.0-0.1); BASOPHILS PERCENT AUTO 0.8 % (0.2-1.5); EOSINOPHILS ABSOLUTE AUTO 0.2 x10-3/uL (0.0-0.8); EOSINOPHILS PERCENT AUTO 2.6 % (0.6-8.1); HEMATOCRIT 42.6 % (34.2-48.2); HEMOGLOBIN 14.6 g/dL (11.4-15.5); LYMPHOCYTES ABSOLUTE AUTO 1.4 x10-3/uL (1.0-4.4); LYMPHOCYTES PERCENT AUTO 21.3 % (18.4-52.1); MEAN CORPUSCULAR HEMOGLOBIN 33.3 pg (23.9-33.9); MEAN CORPUSCULAR HGB CONC 34.3 g/dL (31.9-34.8); MEAN CORPUSCULAR VOLUME 97.2 fL (76.7-100.5); MEAN PLATELET VOLUME 8.2 fL (7.1-12.4); MONOCYTES ABSOLUTE AUTO 0.8 x10-3/uL (0.3-1.0); NEUTROPHILS ABSOLUTE AUTO 4.3 x10-3/uL (1.5-6.3); NEUTROPHILS PERCENT AUTO 63.3 % (30.8-76.2); PLATELET COUNT,PLT 213 x10(3)uL (151-488); RED BLOOD CELL COUNT 4.38 x10(6)uL (3.60-5.20); WHITE BLOOD CELL COUNT,WBC 6.7 x10-3/uL (3.0-10.3)
[2022-07-29 14:25] LABS: BLOOD UREA NITROGEN,BUN 3 mg/dL (7-18); CALCIUM 9.6 mg/dL (8.6-10.2); CARBON DIOXIDE,CO2 25 mmol/L (21-32); CHLORIDE,CL 101 mmol/L (100-110); CREATININE 0.5 mg/dL (0.55-1.02); ESTIMATED GFR 110 mL/min (>60); GLUCOSE RANDOM 129 mg/dL (80-116); POTASSIUM,K 4.3 mmol/L (3.5-5.3); SODIUM,NA 137 mmol/L (135-145)
[2022-07-29 14:33] LABS: TROPONIN I 4.2 pg/mL (4.0-60.3)
[2022-07-29 14:38] LABS: A/G RATIO 0.6; ALANINE AMINOTRANSFERASE,ALT 45 U/L (12-36); ALKALINE PHOSPHATASE 238 IU/L (56-112); ASPARTATE AMNIOTRANSFERASE,AST 92 IU/L (5-25); BILIRUBIN TOTAL 1.5 mg/dL (0.1-1.3); PROTEIN TOTAL,TP 7.9 g/dL (6.0-8.0)
[2022-07-29] MEDS ORDERED: Iopamidol 755 Mg/ML 100 ML Bottle IV ONE (15:10)
[2022-07-29] MEDS ORDERED: Zolpidem 5 MG Tab PO PRN (16:58)
[2022-07-29] MEDS ORDERED: Acetaminophen 325 MG Tab PO PRN (16:58)
[2022-07-29] MEDS ORDERED: Ondansetron 4 MG/2 ML SDV IV PRN (16:58)
[2022-07-29] MEDS ORDERED: Enoxaparin 40 MG/0.4 ML Syringe SUBCUT SCH (17:00)
[2022-07-29] MEDS: Sucralfate 1 GM Tab PO SCH ×2 (17:20→21:00)
[2022-07-29] MEDS: Aluminum Hydroxide/Magnesium Hydroxide Susp 30 ML Cup PO SCH ×3 (17:20→23:49)
[2022-07-29] MEDS ORDERED: Pantoprazole 40 MG Vial IVPUSH ONE (18:00)
[2022-07-29] MEDS: D5 1/2 NS w/ 20 mEq/L KCl 1,000 ML IV SCH (18:14)
[2022-07-29] MEDS: Acetaminophen 325 MG Tab PO SCH (21:00)
[2022-07-29 21:01] LABS: BILIRUBIN,URINE NEGATIVE (NEGATIVE); GLUCOSE,URINE NORMAL (NORMAL); KETONES,URINE NEGATIVE (NEGATIVE); LEUKOCYTE ESTERASE,URINE LARGE (NEGATIVE); NITRITE,URINE POSITIVE (NEGATIVE); OCCULT BLOOD,URINE NEGATIVE (NEGATIVE); PH,URINE 6.5 (5.0-6.5); PROTEIN,URINE NEGATIVE (NEGATIVE); UROBILINOGEN,URINE 1 mg/dL (NEGATIVE)
[2022-07-29 21:04] LABS: APPEARANCE,URINE CLOUDY (CLEAR); BACTERIA,URINE MANY (NS); COLOR,URINE YELLOW (YELLOW); RBC,URINE 0-5 (0-5); SQUAMOUS EPITHELIAL CELLS,UR FEW (NS,R,O)
[2022-07-29] MEDS: Sulfamethoxazole/Trimethoprim 800-160 MG Tab PO SCH (21:20)
[2022-07-30] MEDS: D5 1/2 NS w/ 20 mEq/L KCl 1,000 ML IV SCH (02:01)
[2022-07-30] MEDS: Aluminum Hydroxide/Magnesium Hydroxide Susp 30 ML Cup PO SCH ×3 (05:57→17:03)
[2022-07-30] MEDS: Acetaminophen 325 MG Tab PO SCH ×4 (05:57→20:13)
[2022-07-30] MEDS: Sucralfate 1 GM Tab PO SCH ×4 (06:30→20:13)
[2022-07-30 06:35] LABS: BASOPHILS PERCENT AUTO 0.7 % (0.2-1.5); EOSINOPHILS ABSOLUTE AUTO 0.2 x10-3/uL (0.0-0.8); EOSINOPHILS PERCENT AUTO 4.6 % (0.6-8.1); HEMATOCRIT 37.6 % (34.2-48.2); HEMOGLOBIN 12.6 g/dL (11.4-15.5); LYMPHOCYTES ABSOLUTE AUTO 1.1 x10-3/uL (1.0-4.4); LYMPHOCYTES PERCENT AUTO 27.6 % (18.4-52.1); MEAN CORPUSCULAR HEMOGLOBIN 32.9 pg (23.9-33.9); MEAN CORPUSCULAR HGB CONC 33.4 g/dL (31.9-34.8); MEAN CORPUSCULAR VOLUME 98.5 fL (76.7-100.5); MEAN PLATELET VOLUME 8.2 fL (7.1-12.4); MONOCYTES ABSOLUTE AUTO 0.6 x10-3/uL (0.3-1.0); MONOCYTES PERCENT AUTO 14.4 % (4.4-15.7); NEUTROPHILS ABSOLUTE AUTO 2.2 x10-3/uL (1.5-6.3); NEUTROPHILS PERCENT AUTO 52.7 % (30.8-76.2); PLATELET COUNT,PLT 112 x10(3)uL (151-488); RED BLOOD CELL COUNT 3.82 x10(6)uL (3.60-5.20); WHITE BLOOD CELL COUNT,WBC 4.1 x10-3/uL (3.0-10.3)
[2022-07-30 06:38] LABS: BLOOD UREA NITROGEN,BUN 2 mg/dL (7-18); BUN/CREATININE RATIO 3.3 (9-20); CALCIUM 8.4 mg/dL (8.6-10.2); CARBON DIOXIDE,CO2 25 mmol/L (21-32); CHLORIDE,CL 105 mmol/L (100-110); CREATININE 0.6 mg/dL (0.55-1.02); EST CRCL DRUG DOSING (CG) 91.46 mL/min; ESTIMATED GFR 105 mL/min (>60); GLUCOSE RANDOM 119 mg/dL (80-116); POTASSIUM,K 4.1 mmol/L (3.5-5.3); SODIUM,NA 139 mmol/L (135-145)
[2022-07-30] MEDS ORDERED: D5 1/2 NS w/ 20 mEq/L KCl 1,000 ML IV SCH (08:00)
[2022-07-30] MEDS: Sodium Chloride 0.9% 1,000 ML IV SCH ×2 (09:02→22:30)
[2022-07-30] MEDS: Sulfamethoxazole/Trimethoprim 800-160 MG Tab PO SCH (09:23)
[2022-07-30] MEDS: Ketorolac 30 MG/ML SDV IVPUSH SCH ×3 (10:16→22:05)
[2022-07-30] MEDS: cefTRIAXone 1 GM Vial IVPUSH SCH (10:20)
[2022-07-30] MEDS: Thiamine 200 MG/2 ML MDV IVPUSH SCH (16:55)
[2022-07-30] MEDS: Pantoprazole 40 MG Vial IVPUSH SCH (17:04)
[2022-07-31] MEDS ORDERED: Trolamine Salicylate/Aloe Vera 10% Crm 85 GM Tube TOP PRN (02:02)
[2022-07-31] MEDS: Melatonin 3 MG Tab PO PRN ×2 (02:06→21:43)
[2022-07-31] MEDS: Aluminum Hydroxide/Magnesium Hydroxide Susp 30 ML Cup PO SCH ×5 (02:06→23:25)
[2022-07-31] MEDS: Ketorolac 30 MG/ML SDV IVPUSH SCH ×4 (04:09→21:42)
[2022-07-31] MEDS: Acetaminophen 325 MG Tab PO SCH ×4 (06:20→21:41)
[2022-07-31] MEDS: Sucralfate 1 GM Tab PO SCH ×4 (06:30→21:40)
[2022-07-31 08:16] LABS: A/G RATIO 0.6; ALANINE AMINOTRANSFERASE,ALT 26 U/L (12-36); ALBUMIN 2.4 g/dL (3.5-5.2); ALKALINE PHOSPHATASE 174 IU/L (56-112); ASPARTATE AMNIOTRANSFERASE,AST 51 IU/L (5-25); BILIRUBIN TOTAL 0.8 mg/dL (0.1-1.3); BLOOD UREA NITROGEN,BUN 2 mg/dL (7-18); CALCIUM 8.5 mg/dL (8.6-10.2); CARBON DIOXIDE,CO2 24 mmol/L (21-32); CHLORIDE,CL 106 mmol/L (100-110); CREATININE 0.5 mg/dL (0.55-1.02); EST CRCL DRUG DOSING (CG) 109.75 mL/min; ESTIMATED GFR 110 mL/min (>60); GLUCOSE RANDOM 96 mg/dL (80-116); PROTEIN TOTAL,TP 6.2 g/dL (6.0-8.0); SODIUM,NA 140 mmol/L (135-145)
[2022-07-31] MEDS: Thiamine 200 MG/2 ML MDV IVPUSH SCH (09:02)
[2022-07-31] MEDS: Menthol 10%/Methyl Salicylate 30% 85 GM Tube TOP PRN ×2 (09:03→21:44)
[2022-07-31] MEDS: cefTRIAXone 1 GM Vial IVPUSH SCH (10:05)
[2022-07-31] MEDS: Sodium Chloride 0.9% 10 ML Syringe FLUSH PRN (10:07)
[2022-07-31] MEDS: Sodium Chloride 0.9% 1,000 ML IV SCH (11:59)
[2022-07-31] MEDS: Pantoprazole 40 MG Vial IVPUSH SCH (17:34)
[2022-07-31] MEDS ORDERED: hydrOXYzine HCl 25 MG Tab PO SCH (21:00)
[2022-08-01] MEDS: Sodium Chloride 0.9% 1,000 ML IV SCH (01:25)
[2022-08-01] MEDS: Ketorolac 30 MG/ML SDV IVPUSH SCH (04:23)
[2022-08-01] MEDS: Sucralfate 1 GM Tab PO SCH ×3 (06:56→17:24)
[2022-08-01] MEDS: Aluminum Hydroxide/Magnesium Hydroxide Susp 30 ML Cup PO SCH (06:56)
[2022-08-01] MEDS ORDERED: Aluminum Hydroxide/Magnesium Hydroxide Susp 30 ML Cup PO PRN (08:53)
[2022-08-01] MEDS: Sodium Chloride 0.9% 10 ML Syringe FLUSH PRN (09:27)
[2022-08-01] MEDS: cefTRIAXone 1 GM Vial IVPUSH SCH (09:27)
[2022-08-01] MEDS: Acetaminophen 500 MG Tab PO SCH ×2 (09:32→15:19)
[2022-08-01] MEDS: Ibuprofen 200 MG Tab PO SCH ×2 (09:34→15:19)
[2022-08-01 16:43] VITALS: BP 120/76; PULSE 91
[2022-08-01] MEDS ORDERED: Pantoprazole 40 MG Tab.CR PO SCH (18:00)
[2022-08-01] MEDS ORDERED: Magnesium Chloride 64 MG Tab.ER PO SCH (21:00)
[2022-08-01] MEDS ORDERED: Thiamine 100 MG Tab PO SCH (21:00)
== END 2022-08-01 17:50 | disposition home or self-care (01) | DRG 392 ==
LOC: FB.ED 13:23 → FB.MS 16:52 → OBSVTOIN 07-30 09:45
PROVIDERS: ADMIT Emergency Medicine; ATTEND Family Medicine
DX: K29.20 Alcoholic gastritis without bleeding (principal); N30.01 Acute cystitis with hematuria; R64 Cachexia; K86.0 Alcohol-induced chronic pancreatitis; E46 Unspecified protein-calorie malnutrition; Z68.1 Body mass index [BMI] 19.9 or less, adult; R10.10 Upper abdominal pain, unspecified; R79.89 Other specified abnormal findings of blood chemistry; K70.9 Alcoholic liver disease, unspecified; Z51.5 Encounter for palliative care; K80.20 Calculus of gallbladder without cholecystitis without obstruction; E86.0 Dehydration; F41.0 Panic disorder [episodic paroxysmal anxiety]; H54.7 Unspecified visual loss; M54.9 Dorsalgia, unspecified; Z90.49 Acquired absence of other specified parts of digestive tract; Z98.890 Other specified postprocedural states; R53.1 Weakness; Z74.09 Other reduced mobility; E83.42 Hypomagnesemia; F10.10 Alcohol abuse, uncomplicated; E88.09 Other disorders of plasma-protein metabolism, not elsewhere classified; K80.10 Calculus of gallbladder with chronic cholecystitis without obstruction; G62.9 Polyneuropathy, unspecified; K21.9 Gastro-esophageal reflux disease without esophagitis
CPT/HCPCS: 36415 ×2; 74177; 80048; 80053; 81001; 83036; 83605; 83690; 83735; 84484; 85025 ×2; 86140 ×2; 87086; 87088; 87186; 93005; 96361 ×3; 96372; 96374; 96375; 99285; A9270 ×11; C9113; G0378 ×3; J1650; J1885; J3480 ×2; J7030 ×2; Q9967; 99222; 99232; 99238; J0696; J3411; J3490

== ENCOUNTER 2022-11-07 02:14 | Emergency (ER) | payer MEDICAID ==
[2022-11-07] MEDS ORDERED: Sodium Chloride 0.9% 10 ML Syringe FLUSH PRN (02:27)
[2022-11-07] MEDS ORDERED: Metoclopramide 10 MG/2 ML SDV IVPUSH ONE (02:46)
[2022-11-07 03:24] LABS: BASOPHILS ABSOLUTE AUTO 0.1 x10-3/uL (0.0-0.1); BASOPHILS PERCENT AUTO 0.8 % (0.2-1.5); BLOOD UREA NITROGEN,BUN 1 mg/dL (7-18); BUN/CREATININE RATIO 1.7 (9-20); CALCIUM 8.4 mg/dL (8.6-10.2); CARBON DIOXIDE,CO2 27 mmol/L (21-32); CHLORIDE,CL 100 mmol/L (100-110); CREATININE 0.6 mg/dL (0.55-1.02); EOSINOPHILS ABSOLUTE AUTO 0.1 x10-3/uL (0.0-0.8); EOSINOPHILS PERCENT AUTO 1.3 % (0.6-8.1); ESTIMATED GFR 105 mL/min (>60); GLUCOSE RANDOM 106 mg/dL (80-116); HEMATOCRIT 39.6 % (34.2-48.2); HEMOGLOBIN 13.4 g/dL (11.4-15.5); LYMPHOCYTES ABSOLUTE AUTO 1.2 x10-3/uL (1.0-4.4); LYMPHOCYTES PERCENT AUTO 14.1 % (18.4-52.1); MEAN CORPUSCULAR HEMOGLOBIN 32.4 pg (23.9-33.9); MEAN CORPUSCULAR HGB CONC 33.9 g/dL (31.9-34.8); MEAN CORPUSCULAR VOLUME 95.6 fL (76.7-100.5); MEAN PLATELET VOLUME 8.1 fL (7.1-12.4); MONOCYTES ABSOLUTE AUTO 1.1 x10-3/uL (0.3-1.0); MONOCYTES PERCENT AUTO 12.9 % (4.4-15.7); NEUTROPHILS ABSOLUTE AUTO 5.8 x10-3/uL (1.5-6.3); NEUTROPHILS PERCENT AUTO 70.9 % (30.8-76.2); PLATELET COUNT,PLT 136 x10(3)uL (151-488); POTASSIUM,K 4.2 mmol/L (3.5-5.3); RED BLOOD CELL COUNT 4.14 x10(6)uL (3.60-5.20); RED CELL DISTRIBUTION WIDTH 17.1 % (12.3-16.5); SODIUM,NA 136 mmol/L (135-145); WHITE BLOOD CELL COUNT,WBC 8.2 x10-3/uL (3.0-10.3)
[2022-11-07 03:27] LABS: C-REACTIVE PROTEIN 2.48 mg/dL (<0.33); LIPASE 17 U/L (16-77)
[2022-11-07 03:28] LABS: ETHANOL BLOOD MEDICAL < 0.03 % (<0.03)
[2022-11-07 03:35] LABS: A/G RATIO 0.5; ALANINE AMINOTRANSFERASE,ALT 46 U/L (12-36); ALBUMIN 2.3 g/dL (3.5-5.2); ALKALINE PHOSPHATASE 436 IU/L (56-112); MAGNESIUM 1.5 mg/dL (1.8-2.5)
[2022-11-07 03:48] LABS: ASPARTATE AMNIOTRANSFERASE,AST 227 IU/L (5-25)
[2022-11-07] MEDS ORDERED: Sodium Chloride 0.9% 1,000 ML IV ONE (03:49)
[2022-11-07 03:57] LABS: INR 1.35 (1.00-1.24); PROTHROMBIN TIME 13.8 sec (9.0-11.1)
[2022-11-07] MEDS ORDERED: Pantoprazole 40 MG Vial IVPUSH ONE (04:34)
[2022-11-07] MEDS ORDERED: Magnesium Sulfate/Water 2 GM in Premix Bag 1 BAG IV ONE (04:48)
[2022-11-07] MEDS ORDERED: Sodium Chloride 0.9% 1,000 ML IV SCH (05:00)
[2022-11-07 08:37] LABS: BILIRUBIN,URINE SMALL (NEGATIVE); GLUCOSE,URINE NORMAL (NORMAL); KETONES,URINE 15 mg/dL (NEGATIVE); LEUKOCYTE ESTERASE,URINE LARGE (NEGATIVE); NITRITE,URINE NEGATIVE (NEGATIVE); OCCULT BLOOD,URINE NEGATIVE (NEGATIVE); PROTEIN,URINE NEGATIVE (NEGATIVE); UROBILINOGEN,URINE 1 mg/dL (NEGATIVE)
[2022-11-07 08:42] LABS: APPEARANCE,URINE SLIGHTLY CLOUDY (CLEAR); COLOR,URINE YELLOW (YELLOW); SQUAMOUS EPITHELIAL CELLS,UR FEW (NS,R,O); WBC,URINE 20-30 (0-5)
[2022-11-07 08:43] LABS: BACTERIA,URINE MANY (NS)
[2022-11-07 09:23] VITALS: BP 109/64; PULSE 98
== END 2022-11-07 08:26 ==
LOC: FB.ED 02:14
DX: K92.2 Gastrointestinal hemorrhage, unspecified (principal); K70.9 Alcoholic liver disease, unspecified; E86.0 Dehydration; E87.20 Acidosis, unspecified; K21.9 Gastro-esophageal reflux disease without esophagitis; Z79.899 Other long term (current) drug therapy
CPT/HCPCS: 36410; 36415; 71045; 80053; 80307; 81001; 82270; 82271; 83605; 83690; 83735; 84484; 85025; 85610; 86140; 87086; 87088; 87186; 93005; 96361; 96365; 96375; 99285; C9113; J2765; J3475; J3490; J7030

== ENCOUNTER 2023-11-05 13:09 | Emergency (ER) | payer MEDICAID ==
[2023-11-05] MEDS ORDERED: Sodium Chloride 0.9% 10 ML Syringe FLUSH PRN (13:20)
[2023-11-05 13:52] LABS: HEMATOCRIT 32.7 % (34.2-48.2); HEMOGLOBIN 11.2 g/dL (11.4-15.5); MEAN CORPUSCULAR HEMOGLOBIN 34.5 pg (23.9-33.9); MEAN CORPUSCULAR HGB CONC 34.4 g/dL (31.9-34.8); MEAN CORPUSCULAR VOLUME 100.4 fL (76.7-100.5); MEAN PLATELET VOLUME 6.9 fL (7.1-12.4); PLATELET COUNT,PLT 68 x10(3)uL (151-488); RED BLOOD CELL COUNT 3.26 x10(6)uL (3.60-5.20); RED CELL DISTRIBUTION WIDTH 28.1 % (12.3-16.5); WHITE BLOOD CELL COUNT,WBC 2.6 x10-3/uL (3.0-10.3)
[2023-11-05 13:56] LABS: A/G RATIO 0.6; ALANINE AMINOTRANSFERASE,ALT 13 U/L (12-36); ALBUMIN 2.4 g/dL (3.5-5.2); ALKALINE PHOSPHATASE 207 IU/L (56-112); ASPARTATE AMNIOTRANSFERASE,AST 64 IU/L (5-25); BILIRUBIN TOTAL 5.7 mg/dL (0.1-1.3); BLOOD UREA NITROGEN,BUN 5 mg/dL (7-18); BUN/CREATININE RATIO 12.5 (9-20); CALCIUM 8.4 mg/dL (8.6-10.2); CARBON DIOXIDE,CO2 28 mmol/L (21-32); CREATININE 0.4 mg/dL (0.55-1.02); ESTIMATED GFR 115 mL/min (>60); GLUCOSE RANDOM 102 mg/dL (80-116); MAGNESIUM 1.3 mg/dL (1.8-2.5); POTASSIUM,K 3.3 mmol/L (3.5-5.3); PROTEIN TOTAL,TP 6.6 g/dL (6.0-8.0)
[2023-11-05 14:01] LABS: PTT,PARTIAL THROMBOPLSTIN TIME 35.9 SECONDS (24.4-33.2); TROPONIN I 10.9 pg/mL (4.0-60.3)
[2023-11-05 14:03] LABS: INR 3.41 (1.00-1.24); SODIUM,NA 117 mmol/L (135-145)
[2023-11-05 14:04] LABS: CHLORIDE,CL 82 mmol/L (100-110)
[2023-11-05 14:05] LABS: C-REACTIVE PROTEIN 2.65 mg/dL (<0.50); ETHANOL BLOOD MEDICAL < 0.03 % (<0.03)
[2023-11-05 14:23] LABS: BASOPHILS PERCENT MAN 4 % (0-2); LYMPHOCYTES PERCENT MAN 16 % (13-37); MONOCYTES PERCENT MAN 11 % (4-12); SEG NEUTROPHILS PERCENT MAN 69 % (46-82)
[2023-11-05 15:26] LABS: BILIRUBIN,URINE SMALL (NEGATIVE); GLUCOSE,URINE NORMAL (NORMAL); KETONES,URINE 15 mg/dL (NEGATIVE); LEUKOCYTE ESTERASE,URINE LARGE (NEGATIVE); NITRITE,URINE NEGATIVE (NEGATIVE); OCCULT BLOOD,URINE NEGATIVE (NEGATIVE); PROTEIN,URINE NEGATIVE (NEGATIVE); UROBILINOGEN,URINE 1 mg/dL (NEGATIVE)
[2023-11-05 15:28] LABS: APPEARANCE,URINE SLIGHTLY CLOUDY (CLEAR); BACTERIA,URINE MODERATE (NS); COLOR,URINE ORANGE (YELLOW); SQUAMOUS EPITHELIAL CELLS,UR FEW (NS,R,O); WBC,URINE 20-30 (0-5)
[2023-11-05 15:29] LABS: AMORPHOUS SEDIMENT,URINE FEW
[2023-11-05] MEDS: Sodium Chloride 0.9% 1,000 ML IV SCH (16:10)
[2023-11-05] MEDS ORDERED: Sodium Chloride 0.9% 1,000 ML IV SCH (16:15)
[2023-11-05] MEDS: cefTRIAXone 1 GM Vial IVPUSH ONE (16:18)
[2023-11-05 16:21] VITALS: BP 102/50; PULSE 105
[2023-11-05] MEDS ORDERED: Naloxone 0.4 MG/ML SDV IVPUSH PRN (16:26)
[2023-11-05] MEDS: Magnesium Sulfate/Water 2 GM in Premix Bag 1 BAG IV ONE (16:28)
[2023-11-05] MEDS: Morphine 2 MG/ML SYRINGE IVPUSH ONE (16:36)
[2023-11-05] MEDS: Ondansetron 4 MG/2 ML SDV IVPUSH ONE (16:40)
== END 2023-11-05 17:45 ==
LOC: FB.ED 13:09
DX: K70.31 Alcoholic cirrhosis of liver with ascites (principal); K72.10 Chronic hepatic failure without coma; N39.0 Urinary tract infection, site not specified; E87.1 Hypo-osmolality and hyponatremia; E83.42 Hypomagnesemia; E86.0 Dehydration; F10.10 Alcohol abuse, uncomplicated; R31.9 Hematuria, unspecified; I25.2 Old myocardial infarction; K21.9 Gastro-esophageal reflux disease without esophagitis; Z79.82 Long term (current) use of aspirin; Z79.899 Other long term (current) drug therapy; Y90.0 Blood alcohol level of less than 20 mg/100 ml
CPT/HCPCS: 36415; 51702; 80053; 80307; 81001; 83605; 83735; 84484; 85025; 85610; 85730; 86140; 87040; 87086; 87088; 87186; 93005; 93010; 96365; 96375; 99285; 99285-25; J0696; J2270; J2405; J3475; J7030